=== PATIENT | female | born 1940 | race Caucasian/White ===

== ENCOUNTER → 2017-09-26 | Outpatient (REF) | payer MEDICARE, MEDICAID, OTHER, SELFPAY | LOC: LAB 14:26 | PROVIDERS: PCP Internal Medicine; Visit Provider Internal Medicine | DX: E11.9 Type 2 diabetes mellitus without complications (principal) ==

== ENCOUNTER → 2017-10-24 19:39 | Outpatient (REF) | payer MEDICARE, MEDICAID, SELFPAY ==
[2017-10-24 20:09] LABS: BUN Creatinine Ratio 18.9 (6-22); Blood Urea Nitrogen 17 mg/dL (7-17); Calcium 9.8 mg/dL (8.4-10.2); Carbon Dioxide 31 mmol/L (22-32); Chloride 97 mmol/L (98-107); Estimated Glomerular Filt Rate > 60.0 mL/min (>60); Glucose 198 mg/dL (80-110); HEMOLYSIS < 15 (0-50); Potassium 4.3 mmol/L (3.4-5.1); Sodium 139 mmol/L (137-145)
[2017-10-24 20:12] LABS: Hemoglobin A1C% w Est Avg Glu 9.1 % (4.0-6.0)
[2017-10-24 20:40] LABS: Thyroid Stimulating Hormone 4.74 uIU/mL (0.47-4.68)
== END ==
LOC: LAB 19:39
PROVIDERS: PCP Internal Medicine; Visit Provider Internal Medicine
DX: R60.9 Edema, unspecified (principal); E11.9 Type 2 diabetes mellitus without complications
CPT/HCPCS: 80048; 83036; 84443

== ENCOUNTER → 2017-10-25 15:44 | Outpatient (REF) | payer MEDICARE, OTHER, MEDICAID, SELFPAY ==
[2017-10-25 16:32] LABS: Creatinine Urine Random 47.5 mg/dL
[2017-10-25 16:37] LABS: Microalbumin Urine Random 4.8 mg/dL (0-1.6)
== END ==
LOC: LAB 15:44
PROVIDERS: PCP Internal Medicine; Visit Provider Internal Medicine
DX: G60.9 Hereditary and idiopathic neuropathy, unspecified (principal)
CPT/HCPCS: 82043; 82570

== ENCOUNTER 2017-12-04 09:46 | Inpatient (IN) | payer MEDICARE, OTHER, MEDICAID, SELFPAY ==
[2017-12-04] VITALS (8 sets, daily range): BP systolic 110–150; BP diastolic 40–98; PULSE 66–95; RESP 15–20; TEMP 36.3–37; O2SAT 90–100; BMI 57.1
--- NOTE | 2017-12-04 10:39 | ED.SKABFB ---
HPI - Skin/Abscess/Foreign Bdy General Chief complaint: Skin/Abscess/Foreign Body Stated complaint: wound care Time Seen by Provider: 12/04/17 10:25 Source: patient Mode of arrival: wheelchair Limitations: no limitations History of Present Illness HPI narrative: Patient is a 77-year-old, presenting from wound care. She is trying get reestablished with wound care for a sacral wound which she says has been ongoing for about 3-4 weeks. She is morbidly obese and wheelchair bound. He does not really have any pain no fevers. She had an appointment today with wound care she was not evaluated by a provider but by nurses under to the ED for further evaluation. MD complaint: rash Related Data Home Medications Medication Instructions Recorded Confirmed acetaminophen 650 mg PO Q4HP PRN #0 07/05/16 12/04/17 atorvastatin 40 mg PO BEDTIME #0 07/05/16 12/04/17 bisacodyl 10 mg [place] PRN PRN #0 07/05/16 12/04/17 bupropion HCl [Wellbutrin SR] 100 mg PO BID #0 07/05/16 12/04/17 diltiazem HCl 240 mg PO QPM #0 07/05/16 12/04/17 docusate sodium 200 mg PO BID #0 07/05/16 12/04/17 duloxetine [Cymbalta] 60 mg PO QDAY #0 07/05/16 12/04/17 furosemide [Lasix] 20 mg PO QDAY #0 07/05/16 12/04/17 gabapentin 800 mg PO TID #0 07/05/16 12/04/17 hydroxyzine pamoate [Vistaril] 25 mg PO Q6HP PRN #0 07/05/16 12/04/17 insulin glargine [Lantus Solostar 100 unit SQ BID #0 07/05/16 12/04/17 U-100 Insulin] lisinopril 10 mg PO BID #0 07/05/16 12/04/17 nitroglycerin [Nitrostat] 0.4 mg SUBLINGUAL PRN PRN #0 07/05/16 12/04/17 nortriptyline 50 mg PO BEDTIME #0 07/05/16 12/04/17 rivaroxaban [Xarelto] 20 mg PO QDAY #0 07/05/16 12/04/17 aspirin 81 mg PO QDAY #0 04/08/17 12/04/17 diphenhydramine HCl [Benadryl 25 mg PO Q8HP PRN #0 04/08/17 12/04/17 Allergy] insulin aspart U-100 [Novolog 1 dose SQ TID #0 04/08/17 12/04/17 Flexpen U-100 Insulin] mirabegron [Myrbetriq] 25 mg PO QPM #0 04/08/17 12/04/17 nystatin [Nyamyc] 1 applic TOPICAL PRN PRN #0 04/08/17 12/04/17 ondansetron HCl 4 mg PO Q4HP PRN #0 04/08/17 12/04/17 Chamosyn 1 applic TOPICAL TID 12/04/17 12/04/17 aripiprazole [Abilify] 2.5 mg PO BEDTIME 12/04/17 12/04/17 bisacodyl 5 mg PO PRN PRN 12/04/17 12/04/17 bisacodyl 10 mg PO PRN PRN 12/04/17 12/04/17 docosanol [Abreva] 1 applic TOPICAL PRN PRN 12/04/17 12/04/17 furosemide 40 mg PO DAILY PRN 12/04/17 12/04/17 hydrocortisone 1 applic TOPICAL Q4H PRN 12/04/17 12/04/17 levothyroxine 1 tab PO DAILY 12/04/17 12/04/17 multivitamin with minerals 1 tab PO DAILY 12/04/17 12/04/17 nystatin 1 applic TOPICAL PRN PRN 12/04/17 12/04/17 oxycodone 10 mg PO Q4H PRN 12/04/17 12/04/17 oxycodone 20 mg PO BID 12/04/17 12/04/17 potassium chloride 10 meq PO DAILY 12/04/17 12/04/17 potassium chloride 10 meq PO DAILY PRN 12/04/17 12/04/17 Previous Rx's Medication Instructions Recorded pantoprazole 20 mg PO QDAY #90 04/10/17 Allergies Allergy/AdvReac Type Severity Reaction Status Date / Time adhesive [ADHESIVE] Allergy Mild ALLERGY TO Unverified 06/20/18 14:08 TAPE Review of Systems Review of Systems All systems reviewed & are unremarkable except as noted in HPI and below Constitutional Denies chills, Denies fever(s), Denies lethargy and Denies weakness Eyes Denies change in vision, Denies eye discharge, Denies irritation and Denies loss of vision Cardiovascular Denies chest pain, Denies irregular heart rhythm, Denies lightheadedness, Denies palpitations, Denies dyspnea, Denies dyspnea on exertion and Denies orthopnea Respiratory Denies cough, Denies dyspnea, Denies dyspnea on exertion and Denies wheezing Gastrointestinal Gastrointestinal: Denies abdominal pain, Denies change in bowel habits, Denies diarrhea, Denies nausea and Denies vomiting Integumentary/Breasts Reports system reviewed and no additional complaints, except as docu and Reports as per HPI Neurologic Denies loss of vision and Denies weakness Endocrine Denies palpitations Allergic/Immunologic Denies wheezing [facility] Medical History Anemia (Acute) 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) Atrial fibrillation (Acute) Chronic pain syndrome (Acute) Hereditary and idiopathic neuropathy, unspecified (Acute) Hypertensive chronic kidney disease with stage 1 through stage 4 chronic kidney disease, or unspecified chronic kidney disease (Acute) Insomnia (Acute) Major depressive disorder (Acute) Obstructive sleep apnea (Acute) Urinary incontinence (Acute) Venous insufficiency (chronic) (peripheral) (Acute) Wheelchair bound (Acute) Diabetes (Chronic) Gastroesophageal reflux disease (Chronic) Hypertension (Chronic) Hypothyroidism (Chronic) Obesity (Chronic) Surgical History History of bilateral knee replacement (Resolved) Social History Smoking Status: Never smoker alcohol intake: never Exam Initial Vital Signs Initial Vital Signs: Vital Signs Temperature 98.6 F 12/04/17 09:59 Pulse Rate 95 H 12/04/17 09:59 Respiratory Rate 16 12/04/17 09:59 Blood Pressure 141/74 H 12/04/17 09:59 Pulse Oximetry 95 12/04/17 09:59 Const General: cooperative and healthy appearing Nutritional Appearance: obese morbidly obese Orientation: alert, awake and oriented x3 HENMT Head: normal to inspection Eyes Pupils: PERRL EOM: EOM intact bilaterally Resp Effort & Inspection: normal respiratory effort Auscultation: clear to auscultation bilaterally Cardio Rate: regular rate Rhythm: regular rhythm Heart Sounds: S1 normal and S2 normal Skin Other: Right heel 3 cm x 2 cm nonsuturable ulcer Sacral, between the buttock area 5 cm x 4 cm, foul smelling Neuro General: alert, awake and oriented x3 Course Orders Ordered: ED Orders 12/04/17 11:13 Basic Metabolic Panel Stat Complete Blood Count AUTO DIFF Stat Procalcitonin Stat 12/04/17 13:46 Consult to Physician Stat 12/04/17 13:47 Consult to Physician Stat 12/04/17 14:30 Urinalysis and Microscopic Stat Urine Culture Stat 12/04/17 16:38 Consult to Physician Routine Acetaminophen (Tylenol) 650 mg PO Q4H PRN PRN Reason: Pain (Scale Score 1-3) Aripiprazole (Abilify) 2.5 mg PO BEDTIME [facility] Atorvastatin Calcium (Lipitor) 40 mg PO BEDTIME [facility] Bisacodyl (Dulcolax) 10 mg [place] PRN PRN PRN Reason: CONSTIPATION Bupropion HCl (Wellbutrin Sr) 100 mg PO BID [facility] Diltiazem HCl (Cardizem Cd) 240 mg PO QPM [facility] Last Admin: 12/04/17 18:05 Dose: 240 mg Duloxetine HCl (Cymbalta) 60 mg PO DAILY [facility] Furosemide (Lasix) 20 mg PO DAILY [facility] Gabapentin (Neurontin) 800 mg PO TID [facility] Hydroxyzine Pamoate (Vistaril) 25 mg PO Q6H PRN PRN Reason: Spasms Insulin Glargine (Lantus (Vial)) 100 unit SUBCUT BID [facility] Levothyroxine Sodium (Synthroid) 88 mcg PO 0600 [facility] Lisinopril (Zestril) 10 mg PO BID [facility] Multivitamins/Calcium (Thera M Plus) 1 tab PO DAILY [facility] Nitroglycerin (Nitrostat) 0.4 mg SL PRN PRN PRN Reason: Chest Pain Non-Formulary Medication (Mirabegron [Myrbetriq]) 25 mg PO 1700 [facility] Last Admin: 12/04/17 18:06 Dose: Oxycodone HCl (Oxycontin) 20 mg PO BID [facility] Oxycodone HCl (Percolone) 10 mg PO Q4H PRN PRN Reason: neuropathy Pantoprazole Sodium (Protonix) 20 mg PO DAILY [facility] Potassium Chloride (Klor-Con M10) 10 meq PO DAILY [facility] Consultations Consultation #1: Dr. yost in the ED to see and evaluate patient. Recommends surgical consult thinks that it is quite deep and will likely need surgical debridement. Time: 13:00 Consultation #2: Dr. Pathak in the ED to see and evaluate patient. Agrees that will likely need debridement Time: 13:40 Consultation #3: Dr. Roland accepts patient for admission Time: 13:50 Vital Signs - 8 hr 12/04/17 12:16 12/04/17 13:00 12/04/17 14:42 Temperature Pulse Rate 71 72 67 Respiratory Rate 18 15 Blood Pressure Blood Pressure [Left Arm] 131/58 H 134/98 H 150/51 H Pulse Oximetry 96 100 97 12/04/17 17:54 Temperature 97.3 F L Pulse Rate 66 Respiratory Rate 19 Blood Pressure 150/74 H Blood Pressure [Left Arm] Pulse Oximetry 97 MDM - Skin/Abscess/Foreign Bdy Lab Data Attestation: I reviewed the patient's lab results. Result diagrams: 12/04/17 11:13 12/04/17 11:13 Lab Results 12/04/17 12/04/17 12/04/17 Range/Units 11:13 11:13 11:13 WBC 9.3 (4.5-11.0) X10^3/uL RBC 4.36 (4.0-5.2) X10^6/uL Hgb 13.2 (12.0-16.0) g/dL Hct 39.9 (36-46) % MCV 91.6 (80-100) fL MCH 30.2 (26-34) PG MCHC 33.0 (30-36) % RDW 15.0 H (11.6-14.8) % Plt Count 245 (150-400) X10^3/uL Neut % (Auto) Not Reportable Lymph % (Auto) Not Reportable [place] % (Auto) Not Reportable Eos % (Auto) Not Reportable Baso % (Auto) Not Reportable Total Counted 100 Seg Neutrophils % 50.0 (38-70) % Band Neutrophils % 2.0 L (3-7) % Lymphocytes % (Manual) 17.0 L (25-45) % Monocytes % (Manual) 30.0 H (2-11) % Myelocytes % 1.0 H (-0) % Neutrophils # (Manual) 4836 (1189-3717) /uL RBC Morphology Not Reportable Sodium 139 (137-145) mmol/L Potassium 4.5 (3.4-5.1) mmol/L Chloride 94 L (98-107) mmol/L Carbon Dioxide 36 H (22-32) mmol/L BUN 17 (7-17) mg/dL Creatinine 1.00 (0.52-1.04) mg/dL Estimated GFR 53.9 L (>60) mL/min BUN/Creatinine Ratio 17.0 (6-22) Glucose 218 H (80-110) mg/dL Calcium 9.4 (8.4-10.2) mg/dL Procalcitonin 0.07 (<0.5) ng/mL Urine Color Urine Appearance Urine pH (4.5-8.0) Ur Specific [place] (1.000-1.035) Urine Protein (Negative) Urine Glucose (UA) (Normal) g/dL Urine Ketones (NEGATIVE) Urine Occult Blood (Negative) Urine Nitrate (Negative) Urine Bilirubin (NEGATIVE) Urine Urobilinogen (0.2) E.U./dL Ur Leukocyte Esterase (NEGATIVE) Urine RBC (0-5/HPF) Urine WBC (0-5/HPF) Ur Squamous Epith Cells Urine Bacteria (None) Ur Culture Indicated? Micro UA Comment 12/04/17 Range/Units 14:30 WBC (4.5-11.0) X10^3/uL RBC (4.0-5.2) X10^6/uL Hgb (12.0-16.0) g/dL Hct (36-46) % MCV (80-100) fL MCH (26-34) PG MCHC (30-36) % RDW (11.6-14.8) % Plt Count (150-400) X10^3/uL Neut % (Auto) Lymph % (Auto) [place] % (Auto) Eos % (Auto) Baso % (Auto) Total Counted Seg Neutrophils % (38-70) % Band Neutrophils % (3-7) % Lymphocytes % (Manual) (25-45) % Monocytes % (Manual) (2-11) % Myelocytes % (-0) % Neutrophils # (Manual) (6641-8194) /uL RBC Morphology Sodium (137-145) mmol/L Potassium (3.4-5.1) mmol/L Chloride (98-107) mmol/L Carbon Dioxide (22-32) mmol/L BUN (7-17) mg/dL Creatinine (0.52-1.04) mg/dL Estimated GFR (>60) mL/min BUN/Creatinine Ratio (6-22) Glucose (80-110) mg/dL Calcium (8.4-10.2) mg/dL Procalcitonin (<0.5) ng/mL Urine Color Yellow Urine Appearance Sl cloudy Urine pH 6.0 (4.5-8.0) Ur Specific [place] 1.015 (1.000-1.035) Urine Protein Negative (Negative) Urine Glucose (UA) Negative (Normal) g/dL Urine Ketones Negative (NEGATIVE) Urine Occult Blood Trace-lysed (Negative) Urine Nitrate Positive H (Negative) Urine Bilirubin Negative (NEGATIVE) Urine Urobilinogen 0.2 (0.2) E.U./dL Ur Leukocyte Esterase Trace H (NEGATIVE) Urine RBC 0-1/hpf (0-5/HPF) Urine WBC 5-10/hpf H (0-5/HPF) Ur Squamous Epith Cells 0-1 /hpf Urine Bacteria Many (>30) H (None) Ur Culture Indicated? Specimen cultured Micro UA Comment Not Reportable MDM Narrative Medical decision making narrative: Patient does not have any signs or symptoms of sepsis she does have an obvious the wound. Admitted to Medicine for surgical debridement tomorrow Discharge Plan Departure Patient Disposition: Admitted As Inpatient Clinical Impression: Wound abscess Discharge Date/Time: 12/04/17 16:40 Interventions: ED Discharge Assessment Last Done: 12/04/17 15:17 Admit Date/Time: 12/04/17 15:49 Admit Provider: Johanna Roland
--- NOTE | 2017-12-04 10:42 | ED_ITS ---
HPI - Skin/Abscess/Foreign Bdy General Chief complaint: Skin/Abscess/Foreign Body Stated complaint: wound care Time Seen by Provider: 12/04/17 10:25 Source: patient Mode of arrival: wheelchair Limitations: no limitations History of Present Illness HPI narrative: Patient is a 77-year-old, presenting from wound care. She is trying get reestablished with wound care for a sacral wound which she says has been ongoing for about 3-4 weeks. She is morbidly obese and wheelchair bound. He does not really have any pain no fevers. She had an appointment today with wound care she was not evaluated by a provider but by nurses under to the ED for further evaluation. MD complaint: rash Related Data Home Medications Medication Instructions Recorded Confirmed acetaminophen 650 mg PO Q4HP PRN #0 07/05/16 12/04/17 atorvastatin 40 mg PO BEDTIME #0 07/05/16 12/04/17 bisacodyl 10 mg [place] PRN PRN #0 07/05/16 12/04/17 bupropion HCl [Wellbutrin SR] 100 mg PO BID #0 07/05/16 12/04/17 diltiazem HCl 240 mg PO QPM #0 07/05/16 12/04/17 docusate sodium 200 mg PO BID #0 07/05/16 12/04/17 duloxetine [Cymbalta] 60 mg PO QDAY #0 07/05/16 12/04/17 furosemide [Lasix] 20 mg PO QDAY #0 07/05/16 12/04/17 gabapentin 800 mg PO TID #0 07/05/16 12/04/17 hydroxyzine pamoate [Vistaril] 25 mg PO Q6HP PRN #0 07/05/16 12/04/17 insulin glargine [Lantus Solostar 100 unit SQ BID #0 07/05/16 12/04/17 U-100 Insulin] lisinopril 10 mg PO BID #0 07/05/16 12/04/17 nitroglycerin [Nitrostat] 0.4 mg SUBLINGUAL PRN PRN #0 07/05/16 12/04/17 nortriptyline 50 mg PO BEDTIME #0 07/05/16 12/04/17 rivaroxaban [Xarelto] 20 mg PO QDAY #0 07/05/16 12/04/17 aspirin 81 mg PO QDAY #0 04/08/17 12/04/17 diphenhydramine HCl [Benadryl 25 mg PO Q8HP PRN #0 04/08/17 12/04/17 Allergy] insulin aspart U-100 [Novolog 1 dose SQ TID #0 04/08/17 12/04/17 Flexpen U-100 Insulin] mirabegron [Myrbetriq] 25 mg PO QPM #0 04/08/17 12/04/17 nystatin [Nyamyc] 1 applic TOPICAL PRN PRN #0 04/08/17 12/04/17 ondansetron HCl 4 mg PO Q4HP PRN #0 04/08/17 12/04/17 Chamosyn 1 applic TOPICAL TID 12/04/17 12/04/17 aripiprazole [Abilify] 2.5 mg PO BEDTIME 12/04/17 12/04/17 bisacodyl 5 mg PO PRN PRN 12/04/17 12/04/17 bisacodyl 10 mg PO PRN PRN 12/04/17 12/04/17 docosanol [Abreva] 1 applic TOPICAL PRN PRN 12/04/17 12/04/17 furosemide 40 mg PO DAILY PRN 12/04/17 12/04/17 hydrocortisone 1 applic TOPICAL Q4H PRN 12/04/17 12/04/17 levothyroxine 1 tab PO DAILY 12/04/17 12/04/17 multivitamin with minerals 1 tab PO DAILY 12/04/17 12/04/17 nystatin 1 applic TOPICAL PRN PRN 12/04/17 12/04/17 oxycodone 10 mg PO Q4H PRN 12/04/17 12/04/17 oxycodone 20 mg PO BID 12/04/17 12/04/17 potassium chloride 10 meq PO DAILY 12/04/17 12/04/17 potassium chloride 10 meq PO DAILY PRN 12/04/17 12/04/17 Previous Rx's Medication Instructions Recorded pantoprazole 20 mg PO QDAY #90 04/10/17 Allergies Allergy/AdvReac Type Severity Reaction Status Date / Time adhesive [ADHESIVE] Allergy Mild ALLERGY TO Unverified 06/20/18 14:08 TAPE Review of Systems Review of Systems All systems reviewed & are unremarkable except as noted in HPI and below Constitutional Denies chills, Denies fever(s), Denies lethargy and Denies weakness Eyes Denies change in vision, Denies eye discharge, Denies irritation and Denies loss of vision Cardiovascular Denies chest pain, Denies irregular heart rhythm, Denies lightheadedness, Denies palpitations, Denies dyspnea, Denies dyspnea on exertion and Denies orthopnea Respiratory Denies cough, Denies dyspnea, Denies dyspnea on exertion and Denies wheezing Gastrointestinal Gastrointestinal: Denies abdominal pain, Denies change in bowel habits, Denies diarrhea, Denies nausea and Denies vomiting Integumentary/Breasts Reports system reviewed and no additional complaints, except as docu and Reports as per HPI Neurologic Denies loss of vision and Denies weakness Endocrine Denies palpitations Allergic/Immunologic Denies wheezing [facility] Medical History Anemia (Acute) 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) Atrial fibrillation (Acute) Chronic pain syndrome (Acute) Hereditary and idiopathic neuropathy, unspecified (Acute) Hypertensive chronic kidney disease with stage 1 through stage 4 chronic kidney disease, or unspecified chronic kidney disease (Acute) Insomnia (Acute) Major depressive disorder (Acute) Obstructive sleep apnea (Acute) Urinary incontinence (Acute) Venous insufficiency (chronic) (peripheral) (Acute) Wheelchair bound (Acute) Diabetes (Chronic) Gastroesophageal reflux disease (Chronic) Hypertension (Chronic) Hypothyroidism (Chronic) Obesity (Chronic) Surgical History History of bilateral knee replacement (Resolved) Social History Smoking Status: Never smoker alcohol intake: never Exam Initial Vital Signs Initial Vital Signs: Vital Signs Temperature 98.6 F 12/04/17 09:59 Pulse Rate 95 H 12/04/17 09:59 Respiratory Rate 16 12/04/17 09:59 Blood Pressure 141/74 H 12/04/17 09:59 Pulse Oximetry 95 12/04/17 09:59 Const General: cooperative and healthy appearing Nutritional Appearance: obese morbidly obese Orientation: alert, awake and oriented x3 HENMT Head: normal to inspection Eyes Pupils: PERRL EOM: EOM intact bilaterally Resp Effort & Inspection: normal respiratory effort Auscultation: clear to auscultation bilaterally Cardio Rate: regular rate Rhythm: regular rhythm Heart Sounds: S1 normal and S2 normal Skin Other: Right heel 3 cm x 2 cm nonsuturable ulcer Sacral, between the buttock area 5 cm x 4 cm, foul smelling Neuro General: alert, awake and oriented x3 Course Orders Ordered: ED Orders 12/04/17 11:13 Basic Metabolic Panel Stat Complete Blood Count AUTO DIFF Stat Procalcitonin Stat 12/04/17 13:46 Consult to Physician Stat 12/04/17 13:47 Consult to Physician Stat 12/04/17 14:30 Urinalysis and Microscopic Stat Urine Culture Stat 12/04/17 16:38 Consult to Physician Routine Acetaminophen (Tylenol) 650 mg PO Q4H PRN PRN Reason: Pain (Scale Score 1-3) Aripiprazole (Abilify) 2.5 mg PO BEDTIME [facility] Atorvastatin Calcium (Lipitor) 40 mg PO BEDTIME [facility] Bisacodyl (Dulcolax) 10 mg [place] PRN PRN PRN Reason: CONSTIPATION Bupropion HCl (Wellbutrin Sr) 100 mg PO BID [facility] Diltiazem HCl (Cardizem Cd) 240 mg PO QPM [facility] Last Admin: 12/04/17 18:05 Dose: 240 mg Duloxetine HCl (Cymbalta) 60 mg PO DAILY [facility] Furosemide (Lasix) 20 mg PO DAILY [facility] Gabapentin (Neurontin) 800 mg PO TID [facility] Hydroxyzine Pamoate (Vistaril) 25 mg PO Q6H PRN PRN Reason: Spasms Insulin Glargine (Lantus (Vial)) 100 unit SUBCUT BID [facility] Levothyroxine Sodium (Synthroid) 88 mcg PO 0600 [facility] Lisinopril (Zestril) 10 mg PO BID [facility] Multivitamins/Calcium (Thera M Plus) 1 tab PO DAILY [facility] Nitroglycerin (Nitrostat) 0.4 mg SL PRN PRN PRN Reason: Chest Pain Non-Formulary Medication (Mirabegron [Myrbetriq]) 25 mg PO 1700 [facility] Last Admin: 12/04/17 18:06 Dose: Oxycodone HCl (Oxycontin) 20 mg PO BID [facility] Oxycodone HCl (Percolone) 10 mg PO Q4H PRN PRN Reason: neuropathy Pantoprazole Sodium (Protonix) 20 mg PO DAILY [facility] Potassium Chloride (Klor-Con M10) 10 meq PO DAILY [facility] Consultations Consultation #1: Dr. yost in the ED to see and evaluate patient. Recommends surgical consult thinks that it is quite deep and will likely need surgical debridement. Time: 13:00 Consultation #2: Dr. Pathak in the ED to see and evaluate patient. Agrees that will likely need debridement Time: 13:40 Consultation #3: Dr. Roland accepts patient for admission Time: 13:50 Vital Signs - 8 hr 12/04/17 12:16 12/04/17 13:00 12/04/17 14:42 Temperature Pulse Rate 71 72 67 Respiratory Rate 18 15 Blood Pressure Blood Pressure [Left Arm] 131/58 H 134/98 H 150/51 H Pulse Oximetry 96 100 97 12/04/17 17:54 Temperature 97.3 F L Pulse Rate 66 Respiratory Rate 19 Blood Pressure 150/74 H Blood Pressure [Left Arm] Pulse Oximetry 97 MDM - Skin/Abscess/Foreign Bdy Lab Data Attestation: I reviewed the patient's lab results. Result diagrams: 12/04/17 11:13 12/04/17 11:13 Lab Results 12/04/17 12/04/17 12/04/17 Range/Units 11:13 11:13 11:13 WBC 9.3 (4.5-11.0) X10^3/uL RBC 4.36 (4.0-5.2) X10^6/uL Hgb 13.2 (12.0-16.0) g/dL Hct 39.9 (36-46) % MCV 91.6 (80-100) fL MCH 30.2 (26-34) PG MCHC 33.0 (30-36) % RDW 15.0 H (11.6-14.8) % Plt Count 245 (150-400) X10^3/uL Neut % (Auto) Not Reportable Lymph % (Auto) Not Reportable [place] % (Auto) Not Reportable Eos % (Auto) Not Reportable Baso % (Auto) Not Reportable Total Counted 100 Seg Neutrophils % 50.0 (38-70) % Band Neutrophils % 2.0 L (3-7) % Lymphocytes % (Manual) 17.0 L (25-45) % Monocytes % (Manual) 30.0 H (2-11) % Myelocytes % 1.0 H (-0) % Neutrophils # (Manual) 4836 (1547-5108) /uL RBC Morphology Not Reportable Sodium 139 (137-145) mmol/L Potassium 4.5 (3.4-5.1) mmol/L Chloride 94 L (98-107) mmol/L Carbon Dioxide 36 H (22-32) mmol/L BUN 17 (7-17) mg/dL Creatinine 1.00 (0.52-1.04) mg/dL Estimated GFR 53.9 L (>60) mL/min BUN/Creatinine Ratio 17.0 (6-22) Glucose 218 H (80-110) mg/dL Calcium 9.4 (8.4-10.2) mg/dL Procalcitonin 0.07 (<0.5) ng/mL Urine Color Urine Appearance Urine pH (4.5-8.0) Ur Specific [place] (1.000-1.035) Urine Protein (Negative) Urine Glucose (UA) (Normal) g/dL Urine Ketones (NEGATIVE) Urine Occult Blood (Negative) Urine Nitrate (Negative) Urine Bilirubin (NEGATIVE) Urine Urobilinogen (0.2) E.U./dL Ur Leukocyte Esterase (NEGATIVE) Urine RBC (0-5/HPF) Urine WBC (0-5/HPF) Ur Squamous Epith Cells Urine Bacteria (None) Ur Culture Indicated? Micro UA Comment 12/04/17 Range/Units 14:30 WBC (4.5-11.0) X10^3/uL RBC (4.0-5.2) X10^6/uL Hgb (12.0-16.0) g/dL Hct (36-46) % MCV (80-100) fL MCH (26-34) PG MCHC (30-36) % RDW (11.6-14.8) % Plt Count (150-400) X10^3/uL Neut % (Auto) Lymph % (Auto) [place] % (Auto) Eos % (Auto) Baso % (Auto) Total Counted Seg Neutrophils % (38-70) % Band Neutrophils % (3-7) % Lymphocytes % (Manual) (25-45) % Monocytes % (Manual) (2-11) % Myelocytes % (-0) % Neutrophils # (Manual) ([id number]) /uL RBC Morphology Sodium (137-145) mmol/L Potassium (3.4-5.1) mmol/L Chloride (98-107) mmol/L Carbon Dioxide (22-32) mmol/L BUN (7-17) mg/dL Creatinine (0.52-1.04) mg/dL Estimated GFR (>60) mL/min BUN/Creatinine Ratio (6-22) Glucose (80-110) mg/dL Calcium (8.4-10.2) mg/dL Procalcitonin (<0.5) ng/mL Urine Color Yellow Urine Appearance Sl cloudy Urine pH 6.0 (4.5-8.0) Ur Specific [place] 1.015 (1.000-1.035) Urine Protein Negative (Negative) Urine Glucose (UA) Negative (Normal) g/dL Urine Ketones Negative (NEGATIVE) Urine Occult Blood Trace-lysed (Negative) Urine Nitrate Positive H (Negative) Urine Bilirubin Negative (NEGATIVE) Urine Urobilinogen 0.2 (0.2) E.U./dL Ur Leukocyte Esterase Trace H (NEGATIVE) Urine RBC 0-1/hpf (0-5/HPF) Urine WBC 5-10/hpf H (0-5/HPF) Ur Squamous Epith Cells 0-1 /hpf Urine Bacteria Many (>30) H (None) Ur Culture Indicated? Specimen cultured Micro UA Comment Not Reportable MDM Narrative Medical decision making narrative: Patient does not have any signs or symptoms of sepsis she does have an obvious the wound. Admitted to Medicine for surgical debridement tomorrow Discharge Plan Departure Patient Disposition: Admitted As Inpatient Clinical Impression: Wound abscess Discharge Date/Time: 12/04/17 16:40 Interventions: ED Discharge Assessment Last Done: 12/04/17 15:17 Admit Date/Time: 12/04/17 15:49 Admit Provider: Johanna Roland
[2017-12-04 11:25] LABS: Hematocrit 39.9 % (36-46); Hemoglobin 13.2 g/dL (12.0-16.0); Mean Corpuscular Hemoglobin 30.2 PG (26-34); Mean Corpuscular Volume 91.6 fL (80-100); Platelet Count 245 X10^3/uL (150-400); Red Blood Cell Count 4.36 X10^6/uL (4.0-5.2); White Blood Cell Count 9.3 X10^3/uL (4.5-11.0)
[2017-12-04 11:26] LABS: Add Manual Diff / Slide Review YES
[2017-12-04 11:46] LABS: Blood Urea Nitrogen 17 mg/dL (7-17); Calcium 9.4 mg/dL (8.4-10.2); Carbon Dioxide 36 mmol/L (22-32); Chloride 94 mmol/L (98-107); Estimated Glomerular Filt Rate 53.9 mL/min (>60); Glucose 218 mg/dL (80-110); HEMOLYSIS < 15 (0-50); Potassium 4.5 mmol/L (3.4-5.1); Sodium 139 mmol/L (137-145)
[2017-12-04 11:56] LABS: Neutrophils Absolute Manual 4836 /uL (3000-5900); Total Cells Counted 100
[2017-12-04 11:59] LABS: Procalcitonin 0.07 ng/mL (<0.5)
--- NOTE | 2017-12-04 13:13 | PM.CN ---
History of Present Illness Date Patient Seen: 12/04/17 Time Patient Seen: 13:13 Chief complaint: wound care Reason for consult: sacral pressure ulcer Requesting provider: Addie Logan Narrative: I've been asked to review the patient for a sacral pressure ulcer in the ER noting she was to be seen in the wound care clinic as an initial visit today however was redirected to the ER based on her nurses observation at [facility] this morning. The patient states the ulcer has been present for at least a week, is somewhat painful depending on her position, and she does not report fevers or other associated symptoms today. She does not have history of previous ulcers at this site but is wheelchair dependent, morbidly obese, and also reports a 'blister' over her right heel today. [facility] Medical History Diabetes (Acute) Hypertension (Acute) Obesity (Acute) Social History Smoking Status: Former smoker Meds Home Medications Medication Instructions Recorded Confirmed Type Lactobacillus acidophilus 1 tab PO QDAY #0 07/05/16 History acetaminophen 650 mg PO Q4HP PRN #0 07/05/16 History atorvastatin 40 mg PO HS #0 07/05/16 History bisacodyl 10 mg [place] PRN PRN #0 07/05/1618 History bupropion HCl [Wellbutrin SR] 100 mg PO BID #0 07/05/16 History diltiazem HCl 240 mg PO QPM #0 07/05/16 History docusate sodium 100 mg PO BID #0 07/05/16 History duloxetine [Cymbalta] 60 mg PO QDAY #0 07/05/16 History furosemide [Lasix] 20 mg PO QDAY #0 07/05/16 History gabapentin 800 mg PO TID #0 07/05/16 History hydroxyzine pamoate [Vistaril] 25 mg PO Q6HP PRN #0 07/05/16 History insulin asp prt-insulin aspart 0 units SQ TIDCC #0 07/05/16 History [Novolog Mix 70-30FlexPen U-100] insulin glargine [Lantus Solostar 64 unit SQ BID #0 07/05/16 History U-100 Insulin] levothyroxine 50 mcg PO QDAY #0 07/05/16 History lisinopril 10 mg PO BID #0 07/05/16 History yeiozzbo-znfx-WV-calcium-mins 1 tab PO QDAY #0 07/05/16 11/13/17 History [Thera M Plus (ferrous fumarat)] nitroglycerin [Nitrostat] 0.4 mg SUBLINGUAL #0 07/05/16 11/13/17 History nortriptyline 50 mg PO HS #0 07/05/16 History oxycodone 5 mg PO Q6HP PRN #0 07/05/16 History potassium bicarb-citric acid 10 meq PO QDAY #0 07/05/16 History [Effer-K] rivaroxaban [Xarelto] 20 mg PO QDAY #0 07/05/16 History aripiprazole [Abilify] 5 mg PO HS #30 tab 12/21/16 Rx aspirin 81 mg PO QDAY #0 04/08/17 History bisacodyl [Fleet Laxative] 5 mg PO PRN PRN #0 04/08/17 11/13/17 History diphenhydramine HCl [Benadryl 25 mg PO Q8HP PRN #0 04/08/17 History Allergy] insulin aspart U-100 [Novolog SQ ACHS #0 04/08/17 History Flexpen U-100 Insulin] mirabegron [Myrbetriq] 25 mg PO QPM #0 04/08/17 History nystatin [Nyamyc] 100,000 u TP PRN PRN #0 04/08/17 History ondansetron HCl 4 mg PO Q4HP PRN #0 04/08/17 History oxycodone 10 mg PO Q6HP PRN #60 04/10/17 Rx oxycodone [OxyContin] 20 mg PO BID #60 04/10/17 Rx pantoprazole 20 mg PO QDAY #90 04/10/17 Rx Allergies Allergy/AdvReac Type Severity Reaction Status Date / Time adhesive [ADHESIVE] Allergy Mild ALLERGY TO Unverified 11/13/17 14:08 TAPE Review of Systems Review of Systems All systems reviewed & are unremarkable except as noted in HPI and below Exam Vital Signs (past 8 hours): - 12/04/17 09:59 12/04/17 12:16 Temperature 98.6 F Pulse Rate 95 H 71 Respiratory Rate 16 Blood Pressure 141/74 H Blood Pressure [Left Arm] 131/58 H Pulse Oximetry 95 96 Oxygen Delivery Method Room Air Const General: cooperative and comfortable Skin Other: Approx 6x6cm unstageable sacral pressure ulcer over sacrum with base covered with wet, necortic appearing slough, minimal surrounding erythema, malodorous; approx 3cm diameter right heel blister with purple fluid beneath, nontender, no surrounding erythema Objective Labs Result Diagrams: 12/04/17 11:13 12/04/17 11:13 Labs: Laboratory Results - last 24 hr 12/04/17 12/04/17 12/04/17 11:13 11:13 11:13 WBC 9.3 RBC 4.36 Hgb 13.2 Hct 39.9 MCV 91.6 MCH 30.2 MCHC 33.0 RDW 15.0 H Plt Count 245 Neut % (Auto) Not Reportable Lymph % (Auto) Not Reportable [place] % (Auto) Not Reportable Eos % (Auto) Not Reportable Baso % (Auto) Not Reportable Total Counted 100 Seg Neutrophils % 50.0 Band Neutrophils % 2.0 L Lymphocytes % (Manual) 17.0 L Monocytes % (Manual) 30.0 H Myelocytes % 1.0 H Neutrophils # (Manual) 4836 RBC Morphology Not Reportable Sodium 139 Potassium 4.5 Chloride 94 L Carbon Dioxide 36 H BUN 17 Creatinine 1.00 Estimated GFR 53.9 L BUN/Creatinine Ratio 17.0 Glucose 218 H Calcium 9.4 Procalcitonin 0.07 Assessment & Plan (1) Pressure ulcer of contiguous region involving back and buttock, unstageable: Current visit: Yes Status: Acute Plan: Assessment/Plan Narrative: I've recommended for general surgery to review the sacral pressure ulcer as it will likely require deep debridement in the OR. I'd also recommend intraoperative cultures and IV antibiotics if there's any concern for osteomyelitis for which she's at high risk. The heels should also be floated while she's in bed and the left heel blister may need to be de-roofed and examined further.
--- NOTE | 2017-12-04 13:17 | P.CONS_ITS ---
History of Present Illness Date Patient Seen: 12/04/17 Time Patient Seen: 13:13 Chief complaint: wound care Reason for consult: sacral pressure ulcer Requesting provider: Addie Logan Narrative: I've been asked to review the patient for a sacral pressure ulcer in the ER noting she was to be seen in the wound care clinic as an initial visit today however was redirected to the ER based on her nurses observation at [facility] this morning. The patient states the ulcer has been present for at least a week, is somewhat painful depending on her position, and she does not report fevers or other associated symptoms today. She does not have history of previous ulcers at this site but is wheelchair dependent, morbidly obese, and also reports a 'blister' over her right heel today. [facility] Medical History Diabetes (Acute) Hypertension (Acute) Obesity (Acute) Social History Smoking Status: Former smoker Meds Home Medications Medication Instructions Recorded Confirmed Type Lactobacillus acidophilus 1 tab PO QDAY #0 07/05/16 History acetaminophen 650 mg PO Q4HP PRN #0 07/05/16 History atorvastatin 40 mg PO HS #0 07/05/16 History bisacodyl 10 mg [place] PRN PRN #0 07/05/1618 History bupropion HCl [Wellbutrin SR] 100 mg PO BID #0 07/05/16 History diltiazem HCl 240 mg PO QPM #0 07/05/16 History docusate sodium 100 mg PO BID #0 07/05/16 History duloxetine [Cymbalta] 60 mg PO QDAY #0 07/05/16 History furosemide [Lasix] 20 mg PO QDAY #0 07/05/16 History gabapentin 800 mg PO TID #0 07/05/16 History hydroxyzine pamoate [Vistaril] 25 mg PO Q6HP PRN #0 07/05/16 History insulin asp prt-insulin aspart 0 units SQ TIDCC #0 07/05/16 History [Novolog Mix 70-30FlexPen U-100] insulin glargine [Lantus Solostar 64 unit SQ BID #0 07/05/16 History U-100 Insulin] levothyroxine 50 mcg PO QDAY #0 07/05/16 History lisinopril 10 mg PO BID #0 07/05/16 History pejghsih-wlbo-NP-calcium-mins 1 tab PO QDAY #0 07/05/16 11/13/17 History [Thera M Plus (ferrous fumarat)] nitroglycerin [Nitrostat] 0.4 mg SUBLINGUAL #0 07/05/16 11/13/17 History nortriptyline 50 mg PO HS #0 07/05/16 History oxycodone 5 mg PO Q6HP PRN #0 07/05/16 History potassium bicarb-citric acid 10 meq PO QDAY #0 07/05/16 History [Effer-K] rivaroxaban [Xarelto] 20 mg PO QDAY #0 07/05/16 History aripiprazole [Abilify] 5 mg PO HS #30 tab 12/21/16 Rx aspirin 81 mg PO QDAY #0 04/08/17 History bisacodyl [Fleet Laxative] 5 mg PO PRN PRN #0 04/08/17 11/13/17 History diphenhydramine HCl [Benadryl 25 mg PO Q8HP PRN #0 04/08/17 History Allergy] insulin aspart U-100 [Novolog SQ ACHS #0 04/08/17 History Flexpen U-100 Insulin] mirabegron [Myrbetriq] 25 mg PO QPM #0 04/08/17 History nystatin [Nyamyc] 100,000 u TP PRN PRN #0 04/08/17 History ondansetron HCl 4 mg PO Q4HP PRN #0 04/08/17 History oxycodone 10 mg PO Q6HP PRN #60 04/10/17 Rx oxycodone [OxyContin] 20 mg PO BID #60 04/10/17 Rx pantoprazole 20 mg PO QDAY #90 04/10/17 Rx Allergies Allergy/AdvReac Type Severity Reaction Status Date / Time adhesive [ADHESIVE] Allergy Mild ALLERGY TO Unverified 11/13/17 14:08 TAPE Review of Systems Review of Systems All systems reviewed & are unremarkable except as noted in HPI and below Exam Vital Signs (past 8 hours): - 12/04/17 09:59 12/04/17 12:16 Temperature 98.6 F Pulse Rate 95 H 71 Respiratory Rate 16 Blood Pressure 141/74 H Blood Pressure [Left Arm] 131/58 H Pulse Oximetry 95 96 Oxygen Delivery Method Room Air Const General: cooperative and comfortable Skin Other: Approx 6x6cm unstageable sacral pressure ulcer over sacrum with base covered with wet, necortic appearing slough, minimal surrounding erythema, malodorous; approx 3cm diameter right heel blister with purple fluid beneath, nontender, no surrounding erythema Objective Labs Result Diagrams: 12/04/17 11:13 12/04/17 11:13 Labs: Laboratory Results - last 24 hr 12/04/17 12/04/17 12/04/17 11:13 11:13 11:13 WBC 9.3 RBC 4.36 Hgb 13.2 Hct 39.9 MCV 91.6 MCH 30.2 MCHC 33.0 RDW 15.0 H Plt Count 245 Neut % (Auto) Not Reportable Lymph % (Auto) Not Reportable [place] % (Auto) Not Reportable Eos % (Auto) Not Reportable Baso % (Auto) Not Reportable Total Counted 100 Seg Neutrophils % 50.0 Band Neutrophils % 2.0 L Lymphocytes % (Manual) 17.0 L Monocytes % (Manual) 30.0 H Myelocytes % 1.0 H Neutrophils # (Manual) 4836 RBC Morphology Not Reportable Sodium 139 Potassium 4.5 Chloride 94 L Carbon Dioxide 36 H BUN 17 Creatinine 1.00 Estimated GFR 53.9 L BUN/Creatinine Ratio 17.0 Glucose 218 H Calcium 9.4 Procalcitonin 0.07 Assessment & Plan (1) Pressure ulcer of contiguous region involving back and buttock, unstageable : Current visit: Yes Status: Acute Plan: Assessment/Plan Narrative: I've recommended for general surgery to review the sacral pressure ulcer as it will likely require deep debridement in the OR. I'd also recommend intraoperative cultures and IV antibiotics if there's any concern for osteomyelitis for which she's at high risk. The heels should also be floated while she's in bed and the left heel blister may need to be de-roofed and examined further.
--- NOTE | 2017-12-04 13:56 | P.CONS_ITS ---
History of Present Illness Chief complaint: wound care [facility] Medical History Diabetes (Chronic) Gastroesophageal reflux disease (Chronic) Hypertension (Chronic) Hypothyroidism (Chronic) Obesity (Chronic) Surgical History History of bilateral knee replacement (Resolved) Social History Smoking Status: Former smoker Meds Home Medications Medication Instructions Recorded Confirmed Type Lactobacillus acidophilus 1 tab PO QDAY #0 07/05/16 History acetaminophen 650 mg PO Q4HP PRN #0 07/05/16 History atorvastatin 40 mg PO HS #0 07/05/16 History bisacodyl 10 mg [place] PRN PRN #0 07/05/16 11/13/17 History bupropion HCl [Wellbutrin SR] 100 mg PO BID #0 07/05/16 History diltiazem HCl 240 mg PO QPM #0 07/05/16 History docusate sodium 100 mg PO BID #0 07/05/16 History duloxetine [Cymbalta] 60 mg PO QDAY #0 07/05/16 History furosemide [Lasix] 20 mg PO QDAY #0 07/05/16 History gabapentin 800 mg PO TID #0 07/05/16 History hydroxyzine pamoate [Vistaril] 25 mg PO Q6HP PRN #0 07/05/16 History insulin asp prt-insulin aspart 0 units SQ TIDCC #0 07/05/16 History [Novolog Mix 70-30FlexPen U-100] insulin glargine [Lantus Solostar 64 unit SQ BID #0 07/05/16 History U-100 Insulin] levothyroxine 50 mcg PO QDAY #0 07/05/16 History lisinopril 10 mg PO BID #0 07/05/16 History iwmfkecq-dxmd-FU-calcium-mins 1 tab PO QDAY #0 07/05/16 11/13/17 History [Thera M Plus (ferrous fumarat)] nitroglycerin [Nitrostat] 0.4 mg SUBLINGUAL #0 07/05/16 11/13/17 History nortriptyline 50 mg PO HS #0 07/05/16 History oxycodone 5 mg PO Q6HP PRN #0 07/05/16 History potassium bicarb-citric acid 10 meq PO QDAY #0 07/05/16 History [Effer-K] rivaroxaban [Xarelto] 20 mg PO QDAY #0 07/05/16 History aripiprazole [Abilify] 5 mg PO HS #30 tab 12/21/16 Rx aspirin 81 mg PO QDAY #0 04/08/17 History bisacodyl [Fleet Laxative] 5 mg PO PRN PRN #0 04/08/17 11/13/17 History diphenhydramine HCl [Benadryl 25 mg PO Q8HP PRN #0 04/08/17 History Allergy] insulin aspart U-100 [Novolog SQ ACHS #0 04/08/17 History Flexpen U-100 Insulin] mirabegron [Myrbetriq] 25 mg PO QPM #0 04/08/17 History nystatin [Nyamyc] 100,000 u TP PRN PRN #0 04/08/17 History ondansetron HCl 4 mg PO Q4HP PRN #0 04/08/17 History oxycodone 10 mg PO Q6HP PRN #60 04/10/17 Rx oxycodone [OxyContin] 20 mg PO BID #60 04/10/17 Rx pantoprazole 20 mg PO QDAY #90 04/10/17 Rx Allergies Allergy/AdvReac Type Severity Reaction Status Date / Time adhesive [ADHESIVE] Allergy Mild ALLERGY TO Unverified 11/13/17 14:08 TAPE Review of Systems Review of Systems No recent chest pain. Very inactive. Goes from bed to a chair that is about it for activity. She does not know she has black or bloody bowel movements. No seizures or blackouts. Sugar levels very quite a bit she says. A low for her would be 120. Needs assistance at home. Exam Vital Signs (past 8 hours): - 12/04/17 09:59 12/04/17 12:16 Temperature 98.6 F Pulse Rate 95 H 71 Respiratory Rate 16 Blood Pressure 141/74 H Blood Pressure [Left Arm] 131/58 H Pulse Oximetry 95 96 Oxygen Delivery Method Room Air Narrative Exam Narrative: Operative incredibly obese woman in no apparent distress. Eyes are nonicteric. Neck is supple. There are no nodes in the neck or supraclavicular areas. Trachea is midline mobile. Lungs are clear to auscultation without rales or rhonchi. Equal to percussion. Heart regular rate and rhythm with occasional ectopy no murmur gallop appreciated. No bruit in the neck. Wound on the right heel appears to be intact. Wound overlying the sacrum is actually between her buttock folds. There is full-thickness necrosis it is difficult to tell how deep it is. Suspected goes down to at least the presacral tissues. Objective Labs Result Diagrams: 12/04/17 11:13 12/04/17 11:13 Labs: Laboratory Results - last 24 hr 12/04/17 12/04/17 12/04/17 11: 11: 11:13 WBC 9.3 RBC 4.36 Hgb 13.2 Hct 39.9 MCV 91.6 MCH 30.2 MCHC 33.0 RDW 15.0 H Plt Count 245 Neut % (Auto) Not Reportable Lymph % (Auto) Not Reportable [place] % (Auto) Not Reportable Eos % (Auto) Not Reportable Baso % (Auto) Not Reportable Total Counted 100 Seg Neutrophils % 50.0 Band Neutrophils % 2.0 L Lymphocytes % (Manual) 17.0 L Monocytes % (Manual) 30.0 H Myelocytes % 1.0 H Neutrophils # (Manual) 4836 RBC Morphology Not Reportable Sodium 139 Potassium 4.5 Chloride 94 L Carbon Dioxide 36 H BUN 17 Creatinine 1.00 Estimated GFR 53.9 L BUN/Creatinine Ratio 17.0 Glucose 218 H Calcium 9.4 Procalcitonin 0.07 Assessment & Plan Plan: Assessment/Plan Narrative: Due to her complex medical issues of which there seemed to be a a multitude she will be admitted to Medicine. I will debride her tomorrow. NPO after midnight.
[2017-12-04 15:31] LABS: Appearance Urine UA SL CLOUDY; Bilirubin Urine UA NEGATIVE (NEGATIVE); Color Urine UA YELLOW; Glucose Urine UA NEGATIVE (Normal); Ketones Urine UA NEGATIVE (NEGATIVE); Leukocyte Esterase Urine UA TRACE (NEGATIVE); Nitrite Urine UA POSITIVE (Negative); Occult Blood Urine UA TRACE-LYSED (Negative); Protein Urine UA NEGATIVE (Negative); Specific Gravity Urine UA 1.015 (1.000-1.035); Urobilinogen Urine UA 0.2 E.U./dL (0.2)
[2017-12-04 15:55] LABS: Bacteria Urine Many (>30); RBC Urine 0-1/HPF (0-5/HPF); Squamous Epithelial Cell Urine 0-1 /HPF; WBC Urine 5-10/HPF (0-5/HPF)
[2017-12-04 15:56] LABS: Culture Indicated Urine Specimen Cultured
--- NOTE | 2017-12-04 16:52 | P.HP_ITS ---
History of Present Illness Date Patient Seen: 12/04/17 Time Patient Seen: 16:20 Chief complaint: wound care Narrative: 77-year-old morbidly obese female who was brought to the [facility] Emergency room from the wound clinic earlier today due to concern of pressure ulcer in the sacrum and possible wound infection. She said the nurse has noticed ulceration in the sacrum about 3-4 weeks ago. Recently the ulcers seem to have gotten worse. She was brought to the wound clinic earlier today. The technical operations specialist was concerned about possible necessity of surgical I&D of the ulceration. She was subsequently sent to the emergency room. Patient denies fevers or chills. She does have discomfort locally when she is in certain sitting position. She has been laying in bed or sitting in the wheelchair. She is not able to change her body position frequently. She also was found to have an ulceration on her heel. 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 1 through stage 4 chronic kidney disease, or unspecified chronic kidney disease (Acute) Insomnia (Acute) Major depressive disorder (Acute) Obstructive sleep apnea (Acute) Urinary incontinence (Acute) Venous insufficiency (chronic) (peripheral) (Acute) Wheelchair bound (Acute) Diabetes (Chronic) Gastroesophageal reflux disease (Chronic) Hypertension (Chronic) Hypothyroidism (Chronic) Obesity (Chronic) Surgical History History of bilateral knee replacement (Resolved) Comment: Total of abdominal hysterectomy and bilateral salpingo-oophorectomy in the mid bilateral knee replacement in 2006 and 2007 rotator cuff repair Family & Social History Social History: She is . She resides den at the [facility]. Denies alcohol drinking or cigarette smoking. Safety & Behavioral: Feels Safe in Current Yes Environment Been Physically Hurt or No Threatened By a Person Tobacco & Substance use: Smoking Status Former smoker alcohol intake frequency 0-2 drinks per day Substance Use Type does not use Comment: FH: non-contributory Meds Home Medications Medication Instructions Recorded Confirmed Type acetaminophen 650 mg PO Q4HP PRN #0 07/05/16 12/04/17 History atorvastatin 40 mg PO BEDTIME #0 07/05/16 12/04/17 History bisacodyl 10 mg MT PRN PRN #0 07/05/16 12/04/17 History bupropion HCl [Wellbutrin SR] 100 mg PO BID #0 07/05/16 12/04/17 History diltiazem HCl 240 mg PO QPM #0 07/05/16 12/04/17 History docusate sodium 200 mg PO BID #0 07/05/16 12/04/17 History duloxetine [Cymbalta] 60 mg PO QDAY #0 07/05/16 12/04/17 History furosemide [Lasix] 20 mg PO QDAY #0 07/05/16 12/04/17 History gabapentin 800 mg PO TID #0 07/05/16 12/04/17 History hydroxyzine pamoate [Vistaril] 25 mg PO Q6HP PRN #0 07/05/16 12/04/17 History insulin glargine [Lantus Solostar 100 unit SQ BID #0 07/05/16 12/04/17 History U-100 Insulin] lisinopril 10 mg PO BID #0 07/05/16 12/04/17 History nitroglycerin [Nitrostat] 0.4 mg SUBLINGUAL PRN PRN #0 07/05/16 12/04/17 History nortriptyline 50 mg PO BEDTIME #0 07/05/16 12/04/17 History rivaroxaban [Xarelto] 20 mg PO QDAY #0 07/05/16 12/04/17 History aspirin 81 mg PO QDAY #0 04/08/17 12/04/17 History diphenhydramine HCl [Benadryl 25 mg PO Q8HP PRN #0 04/08/17 12/04/17 History Allergy] insulin aspart U-100 [Novolog 1 dose SQ TID #0 04/08/17 12/04/17 History Flexpen U-100 Insulin] mirabegron [Myrbetriq] 25 mg PO QPM #0 04/08/17 12/04/17 History nystatin [Nyamyc] 1 applic TOPICAL PRN PRN #0 04/08/17 12/04/17 History ondansetron HCl 4 mg PO Q4HP PRN #0 04/08/17 12/04/17 History pantoprazole 20 mg PO QDAY #90 04/10/17 12/04/17 Rx Chamosyn 1 applic TOPICAL TID 12/04/17 12/04/17 History aripiprazole [Abilify] 2.5 mg PO BEDTIME 12/04/17 12/04/17 History bisacodyl 5 mg PO PRN PRN 12/04/17 12/04/17 History bisacodyl 10 mg PO PRN PRN 12/04/17 12/04/17 History docosanol [Abreva] 1 applic TOPICAL PRN PRN 12/04/17 12/04/17 History furosemide 40 mg PO DAILY PRN 12/04/17 12/04/17 History hydrocortisone 1 applic TOPICAL Q4H PRN 12/04/17 12/04/17 History levothyroxine 1 tab PO DAILY 12/04/17 12/04/17 History multivitamin with minerals 1 tab PO DAILY 12/04/17 12/04/17 History nystatin 1 applic TOPICAL PRN PRN 12/04/17 12/04/17 History oxycodone 10 mg PO Q4H PRN 12/04/17 12/04/17 History oxycodone 20 mg PO BID 12/04/17 12/04/17 History potassium chloride 10 meq PO DAILY 12/04/17 12/04/17 History potassium chloride 10 meq PO DAILY PRN 12/04/17 12/04/17 History Allergies Allergy/AdvReac Type Severity Reaction Status Date / Time adhesive [ADHESIVE] Allergy Mild ALLERGY TO Unverified 11/13/17 14:08 TAPE Review of Systems Constitutional Comments: Denies fever chills or sweats Cardiovascular Comments: Denies chest pain or shortness of breath. Gastrointestinal Comments: Denies abdominal pain Genitourinary Comments: No dysuria Exam Vital Signs (past 8 hours): - 12/04/17 09:59 12/04/17 12:16 12/04/17 13:00 Temperature 98.6 F Pulse Rate 95 H 71 72 Respiratory Rate 16 18 Blood Pressure 141/74 H Blood Pressure [Left Arm] 131/58 H 134/98 H Pulse Oximetry 95 96 100 12/04/17 14:42 Temperature Pulse Rate 67 Respiratory Rate 15 Blood Pressure Blood Pressure [Left Arm] 150/51 H Pulse Oximetry 97 Oxygen Delivery Method Room Air Narrative Exam Narrative: GENERAL: Morbidly obese middle-aged woman in no acute distress. HEENT: Head normocephalic, atraumatic. Eyes pupils equal round NECK: Supple, no JVD, CHEST: Breath sounds equal bilaterally, no wheezes rales or rhonchi. CARDIAC: Regular rate and rhythm without murmurs, rubs or gallops. ABDOMEN: Soft, nontender. Normoactive bowel sounds all 4 quadrants. No guarding or rebound. EXTREMITIES: Chronic venous stasis changes on the skin of bilateral lower leg. No significant pitting edema NEUROLOGICAL: Alert and oriented; she does move her extremities Perineum: There is an ulceration on the skin fold in the sacrum, size about 2 cm x 1 cm. The ulceration was chronic appearing. No obvious soft tissue swelling or fluctuance. No obvious purulent drainage. There is foul smelling in the area Objective Labs Result Diagrams: 12/04/17 11:13 12/04/17 11:13 Labs: Laboratory Results - last 24 hr 12/04/17 12/04/17 12/04/17 11:13 11:13 11:13 WBC 9.3 RBC 4.36 Hgb 13.2 Hct 39.9 MCV 91.6 MCH 30.2 MCHC 33.0 RDW 15.0 H Plt Count 245 Neut % (Auto) Not Reportable Lymph % (Auto) Not Reportable [place] % (Auto) Not Reportable Eos % (Auto) Not Reportable Baso % (Auto) Not Reportable Total Counted 100 Seg Neutrophils % 50.0 Band Neutrophils % 2.0 L Lymphocytes % (Manual) 17.0 L Monocytes % (Manual) 30.0 H Myelocytes % 1.0 H Neutrophils # (Manual) 4836 RBC Morphology Not Reportable Sodium 139 Potassium 4.5 Chloride 94 L Carbon Dioxide 36 H BUN 17 Creatinine 1.00 Estimated GFR 53.9 L BUN/Creatinine Ratio 17.0 Glucose 218 H Calcium 9.4 Procalcitonin 0.07 Urine Color Urine Appearance Urine pH Ur Specific [place] Urine Protein Urine Glucose (UA) Urine Ketones Urine Occult Blood Urine Nitrate Urine Bilirubin Urine Urobilinogen Ur Leukocyte Esterase Urine RBC Urine WBC Ur Squamous Epith Cells Urine Bacteria Ur Culture Indicated? Micro UA Comment 12/04/17 14:30 WBC RBC Hgb Hct MCV MCH MCHC RDW Plt Count Neut % (Auto) Lymph % (Auto) [place] % (Auto) Eos % (Auto) Baso % (Auto) Total Counted Seg Neutrophils % Band Neutrophils % Lymphocytes % (Manual) Monocytes % (Manual) Myelocytes % Neutrophils # (Manual) RBC Morphology Sodium Potassium Chloride Carbon Dioxide BUN Creatinine Estimated GFR BUN/Creatinine Ratio Glucose Calcium Procalcitonin Urine Color Yellow Urine Appearance Sl cloudy Urine pH 6.0 Ur Specific [place] 1.015 Urine Protein Negative Urine Glucose (UA) Negative Urine Ketones Negative Urine Occult Blood Trace-lysed Urine Nitrate Positive H Urine Bilirubin Negative Urine Urobilinogen 0.2 Ur Leukocyte Esterase Trace H Urine RBC 0-1/hpf Urine WBC 5-10/hpf H Ur Squamous Epith Cells 0-1 /hpf Urine Bacteria Many (>30) H Ur Culture Indicated? Specimen cultured Micro UA Comment Not Reportable Assessment & Plan Plan: Assessment/Plan Narrative: 1. Stage II to III Pressure ulcer in the sacrum and heel: There seem to be possible necrotic tissue at the edge of the ulceration. Appreciate Dr. Pathak' s consultation. Surgical I and D is planned for tomorrow. NPO after midnight. Hold Xarelto and aspirin today for anticipated surgery. Change body position every 2 hr. Avoid local pressure if possible. Continue local wound care. 2. Type 2 diabetes: Continue Lantus and NovoLog insulin per outpatient dosing. Hold Lantus insulin prior to surgery while NPO. Use sliding scale insulin as needed. 3. Chronic pain: Continue OxyContin and oxycodone per outpatient dosing. Continue gabapentin per outpatient dosing. 4. Chronic atrial fibrillation: Continue diltiazem for rate control. Hold Xarelto prior to surgery. Restart Xarelto after surgery. 5. Hypertension: Continue lisinopril and diltiazem per outpatient dosing 6. GERD: Continue Protonix 20 mg once a day 7. Hypothyroidism: Continue Synthroid 88 mcg daily 8. Hyperlipidemia: Continue atorvastatin 40 mg once a day. 9. Morbid obesity, BMI 57.1
[2017-12-04] MEDS: dilTIAZem CD 240 MG CAP PO (18:05)
[2017-12-04] MEDS: ARIPiprazole 10 MG TABLET 2.5 MG PO (20:04)
[2017-12-04] MEDS: buPROPion SR 100 MG TAB PO (20:05)
[2017-12-04] MEDS: GABAPENTIN 400 MG CAPSULE 800 MG PO (20:05)
[2017-12-04] MEDS: ATORVASTATIN 20 MG TABLET 40 MG PO (20:05)
[2017-12-04] MEDS: OXYCODONE IR 5 MG TABLET 10 MG PO (20:07)
[2017-12-04] MEDS: LISINOPRIL 10 MG TABLET PO (20:08)
[2017-12-04] MEDS: SODIUM CHLORIDE 0.9% FLUSH 10 ML IV (20:08)
[2017-12-04] MEDS: OXYCODONE ER 10 MG TAB 20 MG PO (20:50)
[2017-12-05] VITALS (19 sets, daily range): BP systolic 107–154; BP diastolic 51–94; PULSE 71–110; RESP 12–20; TEMP 36.2–36.9; O2SAT 92–97; BMI 55.6
[2017-12-05] MEDS: OXYCODONE ER 10 MG TAB 20 MG PO ×2 (08:56→21:12)
[2017-12-05] MEDS: LACTATED RINGERS 1,000 ML 100 ML IV (08:56)
[2017-12-05] MEDS: POTASSIUM CHLORIDE 10 MEQ TAB PO (08:56)
[2017-12-05] MEDS: LEVOTHYROXINE 88 MCG TABLET PO (08:57)
[2017-12-05] MEDS: GABAPENTIN 400 MG CAPSULE 800 MG PO ×2 (08:57→21:11)
[2017-12-05] MEDS: DULOXETINE 30 MG CAPSULE 60 MG PO (08:58)
[2017-12-05] MEDS: LISINOPRIL 10 MG TABLET PO ×2 (08:58→21:12)
[2017-12-05] MEDS: buPROPion SR 100 MG TAB PO ×2 (08:58→21:11)
[2017-12-05] MEDS: FUROSEMIDE 20 MG TABLET PO (08:58)
[2017-12-05] MEDS: PANTOPRAZOLE 20 MG TABLET PO (08:58)
[2017-12-05] MEDS: MULTIVIT,CALC,MINS/IRON/FOLIC 1 TABLET 1 TAB PO (08:59)
--- NOTE | 2017-12-05 09:45 | P.PN_ITS ---
Subjective Date Patient Seen: 12/05/17 Time Patient Seen: 09:33 Interval history: Patient sitting in bed with head of the bed elevated 45? in no acute distress. She has been NPO since midnight is awaiting surgical debridement of a sacral pressure ulcer. Exam Vital Signs (past 8 hours): - 12/05/17 05:31 12/05/17 08:30 Temperature 97.6 F 97.7 F Pulse Rate 71 72 Respiratory Rate 16 Blood Pressure 118/71 123/63 H Pulse Oximetry 96 96 Oxygen Delivery Method Nasal Cannula Oxygen Flow Rate 2 Const General: cooperative, comfortable and well groomed Nutritional Appearance: obese morbidly obese Orientation: alert, awake and oriented x3 HENMT Head: normal to inspection, normocephalic and atraumatic Eyes General: appearance normal, both eyes and all related structures Pupils: PERRL Neck Neck: supple Other: No lymphedema Chest Chest: normal inspection of the chest Resp Effort & Inspection: normal respiratory effort and able to speak in complete sentences Auscultation: clear to auscultation bilaterally Cardio Heart Sounds: S1 normal and S2 normal Other: Pulse rate slightly irregular. Has history of atrial fibrillation. No rubs clicks or murmurs appreciated GI Inspection: obesity Palpation: soft Auscultation: normal bowel sounds Other: No guarding or rebound tenderness. Other: Urinary catheter drawn drain in place draining ample amounts of clear hedy urine. Skin General: no rashes or lesions noted, dry skin and warm Other: She has a stage 2/3 pressure ulceration of the skin fold in the sacrum. About 2 cm x 1 cm. The ulceration is chronic in appearance and there is no obvious tissue swelling or fluctuation. There is no purulent drainage at this point time but the area is foul smelling. Neuro General: alert, awake and oriented x3 Cognition: normal cognition Speech: speech normal Motor: muscle tone normal throughout Sensory Exam: other (Decreased sensation noted over both lower extremities.) Extrem General: capillary refill normal and no calf tenderness Other: Chronic venous stasis rash noted to both lower extremities. No significant pitting edema. She does have an approximate 3 cm fluid-filled blister on her right heel. Objective Labs Result Diagrams: 12/04/17 11:13 12/04/17 11:13 Labs: Laboratory Results - last 24 hr 12/04/17 12/04/17 12/04/17 11:13 11:13 11:13 WBC 9.3 RBC 4.36 Hgb 13.2 Hct 39.9 MCV 91.6 MCH 30.2 MCHC 33.0 RDW 15.0 H Plt Count 245 Neut % (Auto) Not Reportable Lymph % (Auto) Not Reportable [place] % (Auto) Not Reportable Eos % (Auto) Not Reportable Baso % (Auto) Not Reportable Total Counted 100 Seg Neutrophils % 50.0 Band Neutrophils % 2.0 L Lymphocytes % (Manual) 17.0 L Monocytes % (Manual) 30.0 H Myelocytes % 1.0 H Neutrophils # (Manual) 4836 RBC Morphology Not Reportable Sodium 139 Potassium 4.5 Chloride 94 L Carbon Dioxide 36 H BUN 17 Creatinine 1.00 Estimated GFR 53.9 L BUN/Creatinine Ratio 17.0 Glucose 218 H Calcium 9.4 Procalcitonin 0.07 Urine Color Urine Appearance Urine pH Ur Specific [place] Urine Protein Urine Glucose (UA) Urine Ketones Urine Occult Blood Urine Nitrate Urine Bilirubin Urine Urobilinogen Ur Leukocyte Esterase Urine RBC Urine WBC Ur Squamous Epith Cells Urine Bacteria Ur Culture Indicated? Micro UA Comment 12/04/17 14:30 WBC RBC Hgb Hct MCV MCH MCHC RDW Plt Count Neut % (Auto) Lymph % (Auto) [place] % (Auto) Eos % (Auto) Baso % (Auto) Total Counted Seg Neutrophils % Band Neutrophils % Lymphocytes % (Manual) Monocytes % (Manual) Myelocytes % Neutrophils # (Manual) RBC Morphology Sodium Potassium Chloride Carbon Dioxide BUN Creatinine Estimated GFR BUN/Creatinine Ratio Glucose Calcium Procalcitonin Urine Color Yellow Urine Appearance Sl cloudy Urine pH 6.0 Ur Specific [place] 1.015 Urine Protein Negative Urine Glucose (UA) Negative Urine Ketones Negative Urine Occult Blood Trace-lysed Urine Nitrate Positive H Urine Bilirubin Negative Urine Urobilinogen 0.2 Ur Leukocyte Esterase Trace H Urine RBC 0-1/hpf Urine WBC 5-10/hpf H Ur Squamous Epith Cells 0-1 /hpf Urine Bacteria Many (>30) H Ur Culture Indicated? Specimen cultured Micro UA Comment Not Reportable Assessment & Plan Plan: Assessment/Plan Narrative: 1. Stage II to III Pressure ulcer in the sacrum and heel: There seem to be possible necrotic tissue at the edge of the ulceration. Appreciate Dr. Pathak' s consultation. Surgical I and D is planned for this afternoon. She has remained NPO after midnight except for selective medications. Hold Xarelto and aspirin today for anticipated surgery. Change body position every 2 hr. Avoid local pressure if possible. Continue local wound care. 2. Type 2 diabetes: Continue Lantus and NovoLog insulin per outpatient dosing. Hold Lantus insulin prior to surgery while NPO. Use sliding scale insulin as needed. 3. Chronic pain: Continue OxyContin and oxycodone per outpatient dosing. Continue gabapentin per outpatient dosing. 4. Chronic atrial fibrillation: Continue diltiazem for rate control. Hold Xarelto prior to surgery. Restart Xarelto after surgery. 5. Hypertension: Continue lisinopril and diltiazem per outpatient dosing 6. GERD: Continue Protonix 20 mg once a day 7. Hypothyroidism: Continue Synthroid 88 mcg daily 8. Hyperlipidemia: Continue atorvastatin 40 mg once a day. 9. Morbid obesity, BMI 57.1 Quality VTE Deep Vein Thrombosis/Pulmonary Embolism Present on Admission: No
--- NOTE | 2017-12-05 13:42 | PM.PREOP ---
Pre-operative Note Interval Note Pre-op Check: History & Physical Reviewed by Physician and Exam Performed H&P completed within 30 days and has changed as indicated here:: No real change. Sugar has been acceptable.
--- NOTE | 2017-12-05 14:49 | CM.DANOTE ---
Discharge Planning/Care Management DCP: assessment: case received this morning and met with pt at 0900. Introduced self and role. Pt confirms she has been living as a resident at [facility] for the last year and a half. She was taken to the [facility] wound clinic for her first appt and decision by Dr. Higgins and staff was to send her to the ER. She admitted to care of hospitalist team. Dr. Higgins and Dr. Pathak are consulting. Pt goes to surgery later this evening for I%D of sacral ulcer. Payer: Medicare and [employer] Pt's bariatric motorized w/c is in her IH room and pt confirms that is her primary transport mode at the facility. Pt states she expects to return to [facility] at d/c but, if snf needed, would agree to [facility]. Have discussed same with Roma/LARRY LATHAM and left a vm for Belinda/[facility]. P: snf vs return [facility]....follow [facility] agrees to fax clinical to [facility]. CM Discharge Assessment Start: 12/05/17 14:45 Freq: Status: Active Protocol: Document 12/05/17 14:45 ITV (Rec: 12/05/17 14:49 ITV [id number]) Discharge Planning Assessment History Provided By Patient Medical Record Has Patient been admitted in last 30 No days? Prior Living Arrangements Assisted Living Type of transporation used prior to Relies on Others admit Facility Name [facility] Willing to Return to Facility? Yes Independent with ADL's No Is patient alert and oriented? Yes Caregiver for Another No DME Already Rented / Owned Other Comment uses a bariatric motorized w/c . Current wt: 385 lbs Referrals Initiated Retirement Comment referral to [facility] in case of need. Pt aware and agreeable if decision made that she needs to go there before return to [facility] setting Comment Discussed above with Roma/ [facility]. VM left for [facility]/ Belinda Review Status In Process Next Review Type Continued Stay Review
[2017-12-05] MEDS: LACTATED RINGERS 1,000 ML 42 ML IV (14:52)
--- NOTE | 2017-12-05 15:08 | CM.DPC ---
Clinicals faxed to [facility].
--- NOTE | 2017-12-05 15:47 | SUR.OPER ---
Lateral on hospital bed, head on pillow, bottom leg straight, upper leg bent and supported with pillows. Pillow between arms. Tape at right hip to bed.
--- NOTE | 2017-12-05 15:57 | PM.OP.1 ---
Operative Date/Time/Diagnoses Date of procedure: 12/05/17 Time of procedure: 15:57 Pre-op diagnosis: Pressure ulcer between the cleft of the buttock over the sacrum. Post-op diagnosis: same (Involving skin and subcu fat.) Procedure & Clinicians Procedure: Excisional debridement of skin and subcu fat. Area measured 7 x 5 cm. Same procedure as scheduled: Yes Indications: Necrotic foul-smelling tissue from a pressure ulcer Surgeon: Truong Pathak Click Yes if Unassisted: Yes Anesthesia Type: General Operative Notes Findings: skin and underlying fat. Closure Type: not applicable Specimen(s): other (Cultures sent) Implants & Drains: None Estimated Blood Loss (mL): 20 Procedure in detail: The patient was placed in left lateral decubitus position after undergoing general LMA anesthesia in her bed. The necrotic area was exposed and prepped with Betadine and draped. I removed the skin and subcu fat. This was a all debrided knife and scissors. It was sharply excised. The base was healthy and bleeding profusely. Using a a pulse lavage was irrigated and hemostasis of major areas obtained with cautery. Dressing was applied and the patient was awakened and extubated. Complications: none Condition: stable Disposition: PACU Plan for aftercare: Wound care at the wound clinic. Dr. Higgins is already seen the patient.
--- NOTE | 2017-12-05 16:01 | PC.NURSE ---
Wound: Only concern this am was about her pain medications and some of her other meds. MD called and received order to give pt her usual meds except diabetic meds. After meds npo was maintained. Family at bedside. Off to OR at 1400. Denies any concerns at that time.
[2017-12-05] MEDS: LIDOCAINE 1% 30 ML INJ INJ (16:08)
--- NOTE | 2017-12-05 16:46 | PC.NURSE ---
5923 - Patient returned from PACU. Resting peacefully in bed for transport. Dressing to bottom has slight sanguinous drainage noted, but is dry and intact. Able to move all extremities. 94% on 3L O2. Encouraged to take deep breaths. Patient repositioned for comfort.
[2017-12-05] MEDS: dilTIAZem CD 240 MG CAP PO (18:29)
[2017-12-05] MEDS: OXYCODONE IR 5 MG TABLET 10 MG PO (19:52)
[2017-12-05] MEDS: SODIUM CHLORIDE 0.9% FLUSH 10 ML IV (19:52)
[2017-12-05] MEDS: ARIPiprazole 10 MG TABLET 2.5 MG PO (21:10)
[2017-12-05] MEDS: ATORVASTATIN 20 MG TABLET 40 MG PO (21:11)
[2017-12-05] MEDS: INSULIN GLARGINE 100 UNIT/ML 10ML VIAL SUBCUT (21:13)
[2017-12-05] MEDS: hydrOXYzine pamoate 25 MG CAPSULE PO (22:59)
[2017-12-06] VITALS (13 sets, daily range): BP systolic 103–136; BP diastolic 47–73; PULSE 64–78; RESP 14–18; TEMP 36.1–37; O2SAT 87–96
[2017-12-06] MEDS: LEVOTHYROXINE 88 MCG TABLET PO (05:43)
[2017-12-06] MEDS: LACTATED RINGERS 1,000 ML 42 ML IV (05:47)
[2017-12-06] MEDS: INSULIN GLARGINE 100 UNIT/ML 10ML VIAL SUBCUT ×2 (08:27→20:30)
[2017-12-06] MEDS: OXYCODONE ER 10 MG TAB 20 MG PO ×2 (08:34→20:25)
[2017-12-06] MEDS: MULTIVIT,CALC,MINS/IRON/FOLIC 1 TABLET 1 TAB PO (08:35)
[2017-12-06] MEDS: GABAPENTIN 400 MG CAPSULE 800 MG PO ×3 (08:35→21:26)
[2017-12-06] MEDS: PANTOPRAZOLE 20 MG TABLET PO (08:35)
[2017-12-06] MEDS: LISINOPRIL 10 MG TABLET PO ×2 (08:36→20:26)
[2017-12-06] MEDS: FUROSEMIDE 20 MG TABLET PO (08:36)
[2017-12-06] MEDS: buPROPion SR 100 MG TAB PO ×2 (08:36→20:28)
[2017-12-06] MEDS: POTASSIUM CHLORIDE 10 MEQ TAB PO (08:36)
[2017-12-06] MEDS: SODIUM CHLORIDE 0.9% FLUSH 10 ML IV ×2 (08:36→20:28)
[2017-12-06] MEDS: DULOXETINE 30 MG CAPSULE 60 MG PO (08:36)
--- NOTE | 2017-12-06 09:12 | PM.DS.1 ---
History of Present Illness Date Patient Seen: 12/06/17 Time Patient Seen: 09:12 Chief complaint: wound care Narrative: 77-year-old morbidly obese female who was brought to the [facility] Emergency room from the wound clinic earlier today due to concern of pressure ulcer in the sacrum and possible wound infection. She said the nurse has noticed ulceration in the sacrum about 3-4 weeks ago. Recently the ulcers seem to have gotten worse. She was brought to the wound clinic earlier today. The ict security specialist was concerned about possible necessity of surgical I&D of the ulceration. She was subsequently sent to the emergency room. Patient denies fevers or chills. She does have discomfort locally when she is in certain sitting position. She has been laying in bed or sitting in the wheelchair. She is not able to change her body position frequently. She also was found to have an ulceration on her heel. Discharge Providers Date of admission: 12/04/17 15:49 Primary care physician: Abelardo Hussein MD Discharge provider: JUANJO Pavon Summary Discharge Diagnosis: 1. Stage II/III pressure ulcer in sacrum and right heel, surgical debridement 2. Type 2 diabetes 3. Chronic pain 4. Chronic atrial fibrillation 5. Hypertension 6. GERD 7. Hypothyroidism 8. Hyperlipidemia 9. Morbid obesity, BMI 57.1 10. Hospital Course: This is a summary of a 2 day hospitalization for this 77-year-old morbidly obese pleasant female who presented with pressure ulcer on the sacrum which required surgical debridement. Patient was taken to the OR where the stage III ulcer was debrided of skin and subcutaneous fat. The base of the wound appeared healthy. Culture of the wound was taken which shows preliminary gram-negative bacillus and Staph coccus. Culture and sensitivity pending. Her diabetes, chronic pain, atrial fibrillation, hypertension, GERD, hypothyroidism, hyperlipidemia were all medically managed with her usual outpatient medications. The patient also had a urine culture sent which showed gram-negative E coli but had an unremarkable urinary sediment and the patient experienced no symptoms. This is likely an asymptomatic bacteriuria and treatment is not indicated at this time. She will be transferred back to [facility] today and will need follow up with wound care clinic on Saturday. Status at Discharge Functional status at discharge: wheelchair bound Overall status at discharge: patient is back to baseline Time Spent with Patient Greater than 30 minutes Exam Vital Signs (past 8 hours): - 12/06/17 04:30 12/06/17 08:00 Temperature 98.0 F 97.4 F L Pulse Rate 72 64 Respiratory Rate 18 14 Blood Pressure 136/69 H 132/70 H Pulse Oximetry 94 95 Oxygen Delivery Method Room Air Oxygen Flow Rate 3 Narrative Exam Narrative: cooperative, comfortable and well groomed Nutritional Appearance: obese morbidly obese Orientation: alert, awake and oriented x3 HENMT Head: normal to inspection, normocephalic and atraumatic Eyes General: appearance normal, both eyes and all related structures Pupils: PERRL Neck Neck: supple Other: No lymphedema Chest Chest: normal inspection of the chest Resp Effort & Inspection: normal respiratory effort and able to speak in complete sentences Auscultation: clear to auscultation bilaterally Cardio Heart Sounds: S1 normal and S2 normal Other: Pulse rate slightly irregular. Has history of atrial fibrillation. No rubs clicks or murmurs appreciated GI Inspection: obesity Palpation: soft Auscultation: normal bowel sounds Other: No guarding or rebound tenderness. Other: Urinary catheter drawn drain in place draining ample amounts of clear hedy urine. Skin General: no rashes or lesions noted, dry skin and warm Other: She has a stage 2/3 pressure ulceration of the skin fold in the sacrum. About 2 cm x 1 cm. The ulceration is chronic in appearance and there is no obvious tissue swelling or fluctuation. There is no purulent drainage at this point. Wound is covered with a dressing. Neuro General: alert, awake and oriented x3 Cognition: normal cognition Speech: speech normal Motor: muscle tone normal throughout Sensory Exam: other (Decreased sensation noted over both lower extremities.) Extrem General: capillary refill normal and no calf tenderness Other: Chronic venous stasis rash noted to both lower extremities. No significant pitting edema. She does have an approximate 3 cm fluid-filled blister on her right heel. Objective Labs Result Diagrams: 12/04/17 11:13 12/04/17 11:13 Discharge Plan Discharge Plan Patient Disposition: SNF Transfer to: [facility] Transportation: Facility vehicle Discharge comment: Will need to be followed up with wound care on Saturday. I certify the postop hospital snf care is medically necessary on a continuing basis for any conditions for which he/ she received care during this hospitalization.: Yes The receiving facility has agreed to accept transfer and provide medical treatment.: Yes Discharge Health Status Precautions: [place] Provider Discharge Instructions Diet: Carb-consistent/Diabetic Food texture: Regular Activity: Turn in bed at least every 2 hr to prevent pressure sacral area. Up in chair as tolerated Oxygen: Room air Wound Care Report to your healthcare provider any signs of infection, such as:: chills, fever, night sweats, increased pain and unusual drainage Special Rehabilitation Services Rehab type: Physical therapy and Occupational therapy Discharge Data Primary Care Provider: Abelardo Hussein V Attending Provider: Johanna Roland Admit Date/Time: 12/04/17 15:49 Quality VTE Deep Vein Thrombosis/Pulmonary Embolism Present on Admission: No
--- NOTE | 2017-12-06 09:18 | P.DS_ITS ---
History of Present Illness Date Patient Seen: 12/06/17 Time Patient Seen: 09:12 Chief complaint: wound care Narrative: 77-year-old morbidly obese female who was brought to the [facility] Emergency room from the wound clinic earlier today due to concern of pressure ulcer in the sacrum and possible wound infection. She said the nurse has noticed ulceration in the sacrum about 3-4 weeks ago. Recently the ulcers seem to have gotten worse. She was brought to the wound clinic earlier today. The traffic control specialist was concerned about possible necessity of surgical I&D of the ulceration. She was subsequently sent to the emergency room. Patient denies fevers or chills. She does have discomfort locally when she is in certain sitting position. She has been laying in bed or sitting in the wheelchair. She is not able to change her body position frequently. She also was found to have an ulceration on her heel. Discharge Providers Date of admission: 12/04/17 15:49 Primary care physician: Abelardo Hussein MD Discharge provider: JUANJO Pavon Summary Discharge Diagnosis: 1. Stage II/III pressure ulcer in sacrum and right heel, surgical debridement 2. Type 2 diabetes 3. Chronic pain 4. Chronic atrial fibrillation 5. Hypertension 6. GERD 7. Hypothyroidism 8. Hyperlipidemia 9. Morbid obesity, BMI 57.1 10. Hospital Course: This is a summary of a 2 day hospitalization for this 77-year- old morbidly obese pleasant female who presented with pressure ulcer on the sacrum which required surgical debridement. Patient was taken to the OR where the stage III ulcer was debrided of skin and subcutaneous fat. The base of the wound appeared healthy. Culture of the wound was taken which shows preliminary gram-negative bacillus and Staph coccus. Culture and sensitivity pending. Her diabetes, chronic pain, atrial fibrillation, hypertension, GERD, hypothyroidism, hyperlipidemia were all medically managed with her usual outpatient medications. The patient also had a urine culture sent which showed gram-negative E coli but had an unremarkable urinary sediment and the patient experienced no symptoms. This is likely an asymptomatic bacteriuria and treatment is not indicated at this time. She will be transferred back to [facility] today and will need follow up with wound care clinic on Saturday. Status at Discharge Functional status at discharge: wheelchair bound Overall status at discharge: patient is back to baseline Time Spent with Patient Greater than 30 minutes Exam Vital Signs (past 8 hours): - 12/06/17 04:30 12/06/17 08:00 Temperature 98.0 F 97.4 F L Pulse Rate 72 64 Respiratory Rate 18 14 Blood Pressure 136/69 H 132/70 H Pulse Oximetry 94 95 Oxygen Delivery Method Room Air Oxygen Flow Rate 3 Narrative Exam Narrative: cooperative, comfortable and well groomed Nutritional Appearance: obese morbidly obese Orientation: alert, awake and oriented x3 HENMT Head: normal to inspection, normocephalic and atraumatic Eyes General: appearance normal, both eyes and all related structures Pupils: PERRL Neck Neck: supple Other: No lymphedema Chest Chest: normal inspection of the chest Resp Effort & Inspection: normal respiratory effort and able to speak in complete sentences Auscultation: clear to auscultation bilaterally Cardio Heart Sounds: S1 normal and S2 normal Other: Pulse rate slightly irregular. Has history of atrial fibrillation. No rubs clicks or murmurs appreciated GI Inspection: obesity Palpation: soft Auscultation: normal bowel sounds Other: No guarding or rebound tenderness. Other: Urinary catheter drawn drain in place draining ample amounts of clear hedy urine. Skin General: no rashes or lesions noted, dry skin and warm Other: She has a stage 2/3 pressure ulceration of the skin fold in the sacrum. About 2 cm x 1 cm. The ulceration is chronic in appearance and there is no obvious tissue swelling or fluctuation. There is no purulent drainage at this point. Wound is covered with a dressing. Neuro General: alert, awake and oriented x3 Cognition: normal cognition Speech: speech normal Motor: muscle tone normal throughout Sensory Exam: other (Decreased sensation noted over both lower extremities.) Extrem General: capillary refill normal and no calf tenderness Other: Chronic venous stasis rash noted to both lower extremities. No significant pitting edema. She does have an approximate 3 cm fluid-filled blister on her right heel. Objective Labs Result Diagrams: 12/04/17 11:13 12/04/17 11:13 Discharge Plan Discharge Plan Patient Disposition: SNF Transfer to: [facility] Transportation: Facility vehicle Discharge comment: Will need to be followed up with wound care on Saturday. I certify the [facility] [place] [facility] care is medically necessary on a continuing basis for any conditions for which he/ she received care during this hospitalization.: Yes The receiving facility has agreed to accept transfer and provide medical treatment.: Yes Discharge Health Status Precautions: [place] Provider Discharge Instructions Diet: Carb-consistent/Diabetic Food texture: Regular Activity: Turn in bed at least every 2 hr to prevent pressure sacral area. Up in chair as tolerated Oxygen: Room air Wound Care Report to your healthcare provider any signs of infection, such as:: chills, fever, night sweats, increased pain and unusual drainage Special Rehabilitation Services Rehab type: Physical therapy and Occupational therapy Discharge Data Primary Care Provider: Abelardo Hussein V Attending Provider: Johanna Roland Admit Date/Time: 12/04/17 15:49 Quality VTE Deep Vein Thrombosis/Pulmonary Embolism Present on Admission: No
--- NOTE | 2017-12-06 11:30 | CM.DPC ---
Addendum entered by Marichuy Delatorre, JAMAAL 12/06/17 13:10: Roma/[facility] was here, observed dressing change and noted it took far to long due primarily to pt's size and the facility could not accommodate this. She said you can try [facility] but I don't think they'll take her. Introduced her to Matthew and Dr. uHssein and she confirmed same. Called [facility] and spoke with Yvrose/business office/on for admissions today and tomorrow. She had been updated re potential need by Belinda/[facility] and stated that they could accept pt but would need to get in bariatric equipment. She stated we don't allow electric wheelchairs in our building so pt's bariatric electric chair would not be used there. Bariatric bed will also be needed. P: [facility] when dme in place, likely tomorrow. Signed orders and scripts meant for the d/c to [facility] today are in the red folder/chart at [facility]. May need to be updated. Dr. Hussein is aware, d/c planned for tomorrow. DCP team to follow accordingly. Transport: expect pt to go in her motorized w/c as per the plan for transport to [facility] today. The w/c can then go back to [facility] to await her return to the facility. Discussed same with Yvrose/[facility] P: [facility] tomorrow, using Medicare snf benefit. PASRR: needed: will try to complete today as time allows. Original Note: DCP: continued: Hospitalist team JUANJO Castro and Dr. Hussein have both deemed pt stable to return today to her assisted living facility/[facility]. Reviewed EMR and pulled off op report and d/c summary for Roma/[facility] to reviewed. Spoke then with her and she will come over to see pt this morning to determine if they can accept her back or if snf level care will be needed. (at this point this would be pvt pay as pt is only with a 2 day LOS as inpt) Conferred with MARTHA Clark re the wound care. She states order is wet to dry and she will wait until Roma arrives before doing the dressing change so that Roma can see what is involved. Matthew and Dr. Hussein are updated. P: d/c today...will follow closely. Pt would transport via electric w/c in the facility van.
--- NOTE | 2017-12-06 14:01 | PC.NURSE ---
Wound/Skin: Nurse from facility here to [facility] pt, they are unable to accept at this time. Also discussed hargrove. Hargrove to be left in now for wound care since pt would be voiding right on the wound and her mobility is so limited. Did have a little bleeding from wound when dressing changed. Tender. After dressing completed the patient was asked about pain and declined any further pain med. SS working on appropriate transfer. Cont w/poc.
[2017-12-06] MEDS: dilTIAZem CD 240 MG CAP PO (16:39)
[2017-12-06] MEDS: MIRABEGRON 25 MG PO (16:40)
[2017-12-06] MEDS: OXYCODONE IR 5 MG TABLET 10 MG PO (16:53)
[2017-12-06] MEDS: INSULIN ASPART 100 UNIT/ML INSULN PEN SUBCUT (18:26)
[2017-12-06] MEDS: ATORVASTATIN 20 MG TABLET 40 MG PO (20:27)
[2017-12-06] MEDS: ARIPiprazole 10 MG TABLET 2.5 MG PO (20:27)
--- NOTE | 2017-12-06 20:42 | PC.NURSE ---
Pt positioned onto left side with three staff members for wound dressing change. Scant amount fresh blood on incontinent pad. Old packing easily removed. Opened 4 x 4 saturated with normal saline and using Qtip, placed into bed of wound. Covered with ABD pad, peripad and pt prefers to remain on left side for comfort.
[2017-12-07] MEDS: ACETAMINOPHEN 325 MG TABLET 650 MG PO (01:49)
[2017-12-07] MEDS: LACTATED RINGERS 1,000 ML 42 ML IV (01:50)
[2017-12-07 04:17] VITALS: BP 117/79; PULSE 71; RESP 16; TEMP 36.4; O2SAT 94
[2017-12-07] MEDS: LEVOTHYROXINE 88 MCG TABLET PO (06:46)
[2017-12-07 08:00] VITALS: BP 118/44; PULSE 67; RESP 16; TEMP 36.3; O2SAT 96
[2017-12-07] MEDS: OXYCODONE ER 10 MG TAB 20 MG PO (08:44)
[2017-12-07] MEDS: PANTOPRAZOLE 20 MG TABLET PO (08:45)
[2017-12-07] MEDS: MULTIVIT,CALC,MINS/IRON/FOLIC 1 TABLET 1 TAB PO (08:45)
[2017-12-07] MEDS: LISINOPRIL 10 MG TABLET PO (08:45)
[2017-12-07] MEDS: buPROPion SR 100 MG TAB PO (08:45)
[2017-12-07] MEDS: DULOXETINE 30 MG CAPSULE 60 MG PO (08:45)
[2017-12-07] MEDS: FUROSEMIDE 20 MG TABLET PO (08:46)
[2017-12-07] MEDS: GABAPENTIN 400 MG CAPSULE 800 MG PO (08:46)
[2017-12-07] MEDS: POTASSIUM CHLORIDE 10 MEQ TAB PO (08:46)
[2017-12-07] MEDS: INSULIN GLARGINE 100 UNIT/ML 10ML VIAL SUBCUT (08:49)
--- NOTE | 2017-12-07 09:15 | PC.NURSE ---
Day shift: Dr Rocha called and said that this Pt is cleared by him to discharge today.
--- NOTE | 2017-12-07 10:39 | PM.PN.1 ---
Subjective Interval history: No new events reported overnight. Discharge delayed due to placement issue. Exam Vital Signs (past 8 hours): - 12/07/17 04:17 12/07/17 08:00 Temperature 97.5 F L 97.3 F L Pulse Rate 71 67 Respiratory Rate 16 16 Blood Pressure 117/79 118/44 L Pulse Oximetry 94 96 Oxygen Delivery Method Nasal Cannula Oxygen Flow Rate 3 Objective Labs Result Diagrams: 12/04/17 11:13 12/04/17 11:13 Assessment & Plan Plan: Assessment/Plan Narrative: 1. Stage II/III pressure ulcer in sacrum and right heel, surgical debridement 2. Type 2 diabetes 3. Chronic pain 4. Chronic atrial fibrillation 5. Hypertension 6. GERD 7. Hypothyroidism 8. Hyperlipidemia 9. Morbid obesity, BMI 57.1 Plan for discharge to nursing home for ongoing wound dressing changes and wound care. Quality VTE Deep Vein Thrombosis/Pulmonary Embolism Present on Admission: No
[2017-12-07 11:46] VITALS: O2SAT 93
[2017-12-07] MEDS: INSULIN ASPART 100 UNIT/ML INSULN PEN SUBCUT (12:15)
--- NOTE | 2017-12-07 12:25 | PC.NURSE ---
Day shift: Report given to [facility] RN at approx [phone].
--- NOTE | 2017-12-07 13:49 | PC.NURSE ---
Day shift: Pt Amrita lifted into [facility] chair. Her moterized WC is in room 201 w/ Pt outbound sales consultant it awaiting [facility] person to come get after they drop Pt off. She has all personal belongings as well as transfer packet.
[2017-12-07 13:51] VITALS: BP 142/78; PULSE 67; RESP 16; TEMP 36.3; O2SAT 96
--- NOTE | 2017-12-07 14:20 | CM.DPC ---
DCP Cont: Contacted [facility], spoke to Roma to ensure that patient could be admitted to facility today. Stated that they did have bariatric equipment on board. Sent discharge information and PASSR via fax to facility. P: Discharge to Replaced By [facility] today, via wheel-chair Justine Issa RN/[place] Code Enforcement Officer
== END 2017-12-07 13:53 | DRG 570 ==
LOC: ED 14:20 → AC 15:50
PROVIDERS: Specialist; Admitting Provider Internal Medicine; Emergency Provider Emergency Medicine; PCP Internal Medicine; Visit Provider Internal Medicine
PROC: 0JB70ZZ Excision of Back Subcutaneous Tissue and Fascia, Open Approach (ICD-10-PCS; CPT 46040; principal; 2017-12-05 14:00)
DX: L89.153 Pressure ulcer of sacral region, stage 3 (principal); I96 Gangrene, not elsewhere classified; Z68.43 Body mass index [BMI] 50.0-59.9, adult; L89.619 Pressure ulcer of right heel, unspecified stage; E66.01 Morbid (severe) obesity due to excess calories; E11.9 Type 2 diabetes mellitus without complications; Z79.4 Long term (current) use of insulin; G89.29 Other chronic pain; I48.2 Chronic atrial fibrillation; Z79.01 Long term (current) use of anticoagulants; I10 Essential (primary) hypertension; K21.9 Gastro-esophageal reflux disease without esophagitis; E03.9 Hypothyroidism, unspecified; E78.5 Hyperlipidemia, unspecified; G60.9 Hereditary and idiopathic neuropathy, unspecified; G47.33 Obstructive sleep apnea (adult) (pediatric); I87.2 Venous insufficiency (chronic) (peripheral); Z99.3 Dependence on wheelchair; Z87.891 Personal history of nicotine dependence
CPT/HCPCS: 11042; 36415; 51701; 80048; 81001; 82962; 84145; 85025; 87070; 87075; 87077; 87086; 87147; 87186; 87205; 94760; 94762; 99221; 99283; J2405; J2704

== ENCOUNTER 2018-04-02 11:13 | Emergency (ER) | payer MEDICARE, OTHER, MEDICAID, SELFPAY ==
[2017-12-04 16:40] VITALS: BMI 57.1
--- NOTE | 2018-04-02 11:18 | ED.FALL ---
HPI - Fall General Chief Complaint: Fall Stated Complaint: GLF Time Seen by Provider: 04/02/18 11:18 Source: patient and EMS Mode of arrival: EMS Limitations: no limitations History of Present Illness HPI Narrative: 77-year-old female was in her wheelchair at the nursing facility when she stated that 1 of the wheels got stuck and the wheelchair. She fell forward. She landed on her knees and then fell forward and hit her forehead on the ground. Is on anticoagulation but no loss of consciousness. Related Data Home Medications Medication Instructions Recorded Confirmed acetaminophen 650 mg PO Q4HP PRN #0 07/05/16 04/02/18 atorvastatin 40 mg PO BEDTIME #0 07/05/16 04/02/18 bisacodyl 10 mg AR PRN PRN #0 07/05/16 04/02/18 bupropion HCl [Wellbutrin SR] 100 mg PO BID #0 07/05/16 04/02/18 diltiazem HCl 240 mg PO QPM #0 07/05/16 04/02/18 docusate sodium 200 mg PO BID #0 07/05/16 04/02/18 duloxetine [Cymbalta] 60 mg PO QDAY #0 07/05/16 04/02/18 furosemide [Lasix] 20 mg PO QDAY #0 07/05/16 04/02/18 gabapentin 800 mg PO TID #0 07/05/16 04/02/18 hydroxyzine pamoate [Vistaril] 25 mg PO Q6HP PRN #0 07/05/16 04/02/18 lisinopril 10 mg PO BID #0 07/05/16 04/02/18 nitroglycerin [Nitrostat] 0.4 mg SUBLINGUAL PRN PRN #0 07/05/16 04/02/18 rivaroxaban [Xarelto] 20 mg PO QDAY #0 07/05/16 04/02/18 aspirin 81 mg PO QDAY #0 04/08/17 04/02/18 diphenhydramine HCl [Benadryl 25 mg PO Q8HP PRN #0 04/08/17 04/02/18 Allergy] mirabegron [Myrbetriq] 25 mg PO QPM #0 04/08/17 04/02/18 ondansetron HCl 4 mg PO Q4HP PRN #0 04/08/17 04/02/18 aripiprazole [Abilify] 2.5 mg PO BEDTIME 12/04/17 04/02/18 bisacodyl 5 mg PO PRN PRN 12/04/17 04/02/18 bisacodyl 10 mg PO PRN PRN 12/04/17 04/02/18 levothyroxine 1 tab PO DAILY 12/04/17 04/02/18 menthol-zinc [id number]-sfwv oil 1 applic TOPICAL TID #0 12/04/17 04/02/18 [Chamosyn] multivitamin with minerals 1 tab PO DAILY 12/04/17 04/02/18 nystatin 1 applic TOPICAL PRN PRN 12/04/17 04/02/18 potassium chloride 10 meq PO DAILY 12/04/17 04/02/18 furosemide 40 mg PO DAILY PRN 04/02/18 04/02/18 magnesium hydroxide [Milk of 30 ml PO PRN PRN 04/02/18 04/02/18 Magnesia] mirtazapine 15 mg PO QPM 04/02/18 04/02/18 nortriptyline 25 mg PO BEDTIME 04/02/18 04/02/18 oxycodone 10 mg PO Q4H PRN 04/02/18 04/02/18 oxycodone [OxyContin] 20 mg PO Q12H 04/02/18 04/02/18 potassium chloride 10 meq PO PRN PRN 04/02/18 04/02/18 sodium phosphates [Fleet Enema] 1 ea AR PRN PRN 04/02/18 04/02/18 Previous Rx's Medication Instructions Recorded pantoprazole 20 mg PO QDAY #90 04/10/17 Allergies Allergy/AdvReac Type Severity Reaction Status Date / Time adhesive [ADHESIVE] Allergy Mild ALLERGY TO Verified 12/05/17 14:53 TAPE Review of Systems Constitutional Denies fatigue and Reports headache(s) ENT Ears, Nose, Mouth, and Throat: Denies dental pain, Denies dysphagia, Denies vertigo, Denies dizziness, Reports facial pain, Reports headache(s), Denies epistaxis and Denies sore throat Cardiovascular Denies chest pain and Denies dyspnea Respiratory Denies dyspnea Gastrointestinal Gastrointestinal: Denies abdominal pain and Denies dysphagia Musculoskeletal Denies myalgias and Reports arthralgias Integumentary/Breasts Comments: Bruising around the face Neurologic Denies vertigo, Denies dizziness and Reports headache(s) Endocrine Denies fatigue Exam Initial Vital Signs Initial Vital Signs: Vital Signs Temperature 98.7 F 04/02/18 11:22 Pulse Rate 84 04/02/18 11:22 Respiratory Rate 18 04/02/18 11:22 Blood Pressure 147/68 H 04/02/18 11:22 Pulse Oximetry 94 04/02/18 11:22 Const General: cooperative, comfortable, well developed, well groomed and No acute distress Orientation: alert, awake and oriented x3 [facility] Nose: external nose normal, No epistaxis and No septum abnormal Face and sinus: face symmetric, abrasion (Middle of the forehead just above the nose), no ecchymosis, no erythema, no edema and no lacerations Eyes Pupils: PERRL EOM: EOM intact bilaterally Resp Effort & Inspection: normal respiratory effort Auscultation: clear to auscultation bilaterally Cardio Rate: regular rate Pulses: radial pulses present GI Inspection: non-distended Palpation: soft, No firm and No tender Back/Spine/Pelvis Cervical Spine: No collar present, No cervical spasm, No cervical spinal tenderness and No step off deformity Skin Rashes: no rashes Neuro General: alert, awake and oriented x3 Cognition: normal cognition Speech: speech normal Extrem General: normal to inspection and capillary refill normal Psych Appearance: grossly normal and well kempt [facility] Medical History Anemia (Acute) Atherosclerotic heart disease of [place] coronary artery without angina pectoris (Acute) Atrial fibrillation (Acute) Chronic pain syndrome (Acute) Hereditary and idiopathic neuropathy, unspecified (Acute) Hypertensive chronic kidney disease with stage 1 through stage 4 chronic kidney disease, or unspecified chronic kidney disease (Acute) Insomnia (Acute) Major depressive disorder (Acute) Obstructive sleep apnea (Acute) Urinary incontinence (Acute) Venous insufficiency (chronic) (peripheral) (Acute) Wheelchair bound (Acute) Diabetes (Chronic) Gastroesophageal reflux disease (Chronic) Hypertension (Chronic) Hypothyroidism (Chronic) Obesity (Chronic) Surgical History History of bilateral knee replacement (Resolved) Social History Smoking Status: Never smoker alcohol intake: never Course Orders Ordered: ED Orders 04/02/18 11:18 CT head/brain wo con Stat XR knee LT 3V Stat 04/02/18 12:01 Basic Metabolic Panel Stat Complete Blood Count AUTO DIFF Stat Partial Thromboplastin Time Stat Prothrombin Time INR Stat Discontinued Medications Acetaminophen (Tylenol) 650 mg PO NOW ONE Stop: 04/02/18 12:34 Vital Signs - 8 hr 04/02/18 11:22 Temperature 98.7 F Pulse Rate 84 Respiratory Rate 18 Blood Pressure 147/68 H Pulse Oximetry 94 MDM - Fall Lab Data Attestation: I reviewed the patient's lab results. Result diagrams: 04/02/18 12:01 04/02/18 12:01 Lab Results 04/02/18 04/02/18 04/02/18 Range/Units 12:01 12:01 12:01 WBC 11.4 H (4.5-11.0) X10^3/uL RBC 4.28 (4.0-5.2) X10^6/uL Hgb 12.8 (12.0-16.0) g/dL Hct 38.8 (36-46) % MCV 90.8 (80-100) fL MCH 29.9 (26-34) PG MCHC 32.9 (30-36) % RDW 14.8 (11.6-14.8) % Plt Count 303 (150-400) X10^3/uL Neut % (Auto) 56.6 (50-75) % Lymph % (Auto) 16.3 L (25-40) % [place] % (Auto) 25.6 H (3-14) % Eos % (Auto) 0.8 L (2-4) % Baso % (Auto) 0.7 (0-2) % Neut # (Auto) 6500 H (9668-0023) /uL PT 24.9 H (10.1-12.7) SECONDS INR 2.3 H (0.9-1.3) APTT 40 H (26.4-36.2) SECONDS Sodium 140 (137-145) mmol/L Potassium 4.6 (3.4-5.1) mmol/L Chloride 98 (98-107) mmol/L Carbon Dioxide 31 (22-32) mmol/L BUN 16 (7-17) mg/dL Creatinine 0.80 (0.52-1.04) mg/dL Estimated GFR > 60.0 (>60) mL/min BUN/Creatinine Ratio 20.0 (6-22) Glucose 177 H (80-110) mg/dL Calcium 9.3 (8.4-10.2) mg/dL Imaging Data CT scan - head: Radiologist's impression: PROCEDURE: CT HEAD/BRAIN WO CON INDICATIONS: Ground level fall blood thinners hit head TECHNIQUE: Noncontrast 4.5 mm thick angled axial sections acquired from the foramen magnum to the vertex, with coronal and sagittal reformats. For radiation dose reduction, the following was used: automated exposure control, adjustment of mA and/or kV according to patient size. COMPARISON: [facility], CT, HEAD WITHOUT CONTRAST, 03/08/2016, 11:47. [facility], CT, HEAD WITHOUT CONTRAST, 08/24/2012, 13:12. FINDINGS: Image quality: Excellent except for patient mild motion during image acquisition and also metal artifact from extensive dental work. Repeat imaging with different angulation was utilized to reduce streak artifact across the posterior cranial fossa which was greater on the left than the right. CSF spaces: Basal cisterns are patent. No extra-axial fluid collections. The ventricles are symmetric in size and shape. Brain: No intracranial bleeds or masses. There is cerebral volume loss for age, with resultant ventricular and sulcal prominence. There are periventricular and deep white matter chronic small vessel ischemic changes. There is intracranial internal carotid artery atherosclerosis. Skull and face: Calvarium and visualized facial bones appear intact, without suspicious lesions. Sinuses: Visualized sinuses and mastoids are clear. IMPRESSION: No acute trauma. Mild patient motion during image acquisition and also streak artifact from dental work diminished quality of the initial image acquisition but repeat imaging with angulation changed to reduce artifact succeeded in clarifying the visualization of the posterior cranial fossa as noted above. Dictated by: Son Headley M.D. on 04/02/2018 at 11:39 Approved by: Son Headley M.D. on 04/02/2018 at 11:45 X-ray knee: Radiologist's impression: [address] [id number] XRay Report Signed Patient: Elena Danielson RMR#: [id number] : 2Acct:[id number] Age/Sex: 77 / FDate of Service: 04/02/18 Loc: ED Accession Number: [id number] Procedure: XR knee LT 3V Ordering Provider: Gilson Gonzalez D.O. PROCEDURE: XR KNEE LT 3V INDICATIONS: Fall with left knee pain TECHNIQUE: 3 views of the knee were acquired. COMPARISON: [facility], , KNEE 3V RIGHT, 09/01/2014, 14:05. [facility], , KNEE 1-2 VIEWS LEFT, 09/09/2007, 14:35. FINDINGS: Bones: No fractures or dislocations. No suspicious bony lesions. Prior left total knee arthroplasty. Soft tissues: No joint effusion. No suspicious soft tissue calcifications. IMPRESSION: Prior left total knee arthroplasty appears free of disruption. Dictated by: Son Headley M.D. on 04/02/2018 at 11:45 Approved by: Son Headley M.D. on 04/02/2018 at 11:46 MDM Narrative Medical decision making narrative: Head CT unremarkable Right knee x-ray unremarkable. Labs ordered per modified trauma protocol of head injury the patient anticoagulation. The contusions on her forehead do not need any stitches. Discussed this with the patient. Given return precautions. She expressed understanding and agreement with plan. Discharge Plan Departure Patient Disposition: Home Clinical Impression: Contusion of forehead, Acute knee pain Instructions: How to Prevent Falls Activity Restrictions/Additional Instructions: Continue all of your medications as directed. There were no fractures noted on any of the studies that were done today. Return to the emergency department for any new or worsening symptoms Prescriptions: No Action atorvastatin 40 MG tablet 40 mg PO BEDTIME Qty: 0 RF: 0 acetaminophen 325 MG tablet 650 mg PO Q4HP PRN (Reason: pain 1-3 or fever >100.1) Qty: 0 RF: 0 bupropion HCl [Wellbutrin SR] 100 MG tablet extended release 12 hr 100 mg PO BID Qty: 0 RF: 0 bisacodyl 10 MG suppository 10 mg AR PRN PRN (Reason: Constipation) Qty: 0 RF: 0 diltiazem HCl 240 MG capsule,extended release 24hr 240 mg PO QPM Qty: 0 RF: 0 docusate sodium 100 MG capsule 200 mg PO BID Qty: 0 RF: 0 gabapentin 800 MG tablet 800 mg PO TID Qty: 0 RF: 0 duloxetine [Cymbalta] 60 MG capsule,delayed release(DR/EC) 60 mg PO QDAY Qty: 0 RF: 0 lisinopril 10 MG tablet 10 mg PO BID Qty: 0 RF: 0 furosemide [Lasix] 20 MG tablet 20 mg PO QDAY Qty: 0 RF: 0 nitroglycerin [Nitrostat] 0.4 MG tablet, sublingual 0.4 mg Sublingual PRN PRN (Reason: Chest Pain) Qty: 0 RF: 0 hydroxyzine pamoate [Vistaril] 25 MG capsule 25 mg PO Q6HP PRN (Reason: Spasms) Qty: 0 RF: 0 rivaroxaban [Xarelto] 20 MG tablet 20 mg PO QDAY Qty: 0 RF: 0 aspirin 81 MG tablet,delayed release (DR/EC) 81 mg PO QDAY Qty: 0 RF: 0 mirabegron [Myrbetriq] 25 MG tablet extended release 24 hr 25 mg PO QPM Qty: 0 RF: 0 diphenhydramine HCl [Benadryl Allergy] 25 MG tablet 25 mg PO Q8HP PRN (Reason: Allergy Symptoms) Qty: 0 RF: 0 ondansetron HCl 4 MG tablet 4 mg PO Q4HP PRN (Reason: Nausea) Qty: 0 RF: 0 pantoprazole 20 MG tablet,delayed release (DR/EC) 20 mg PO QDAY Qty: 90 RF: 0 furosemide 40 mg Tablet 40 mg PO DAILY PRN (Reason: Edema) RF: 0 magnesium hydroxide [Milk of Magnesia] 400 mg/5 mL Suspension 30 ml PO PRN PRN (Reason: Constipation) RF: 0 sodium phosphates [Fleet Enema] 19-7 gram/118 mL Enema 1 ea AR PRN PRN (Reason: Constipation) RF: 0 mirtazapine 15 mg Tablet 15 mg PO QPM RF: 0 oxycodone 10 mg Tablet 10 mg PO Q4H PRN (Reason: Breakthrough Pain) RF: 0 oxycodone [OxyContin] 20 mg Tablet,Oral Only,Ext.Rel.12 Hr 20 mg PO Q12H RF: 0 potassium chloride 10 mEq Capsule, Extended Release 10 meq PO PRN PRN (Reason: Edema) RF: 0 nortriptyline 25 mg Capsule 25 mg PO BEDTIME RF: 0 levothyroxine 88 mcg tablet 1 tab PO DAILY RF: 0 potassium chloride 10 mEq Tablet Extended Release 10 meq PO DAILY RF: 0 multivitamin with minerals Tablet 1 tab PO DAILY RF: 0 bisacodyl 5 mg Tablet 5 mg PO PRN PRN (Reason: Constipation) RF: 0 bisacodyl 5 mg Tablet 10 mg PO PRN PRN (Reason: Constipation) RF: 0 menthol-zinc ce-unbj-znxw oil [Chamosyn] 0.45-20 % Ointment 1 applic Topical TID Qty: 0 RF: 0 nystatin 100,000 unit/gram Powder 1 applic TOPICAL PRN PRN (Reason: Rash) RF: 0 aripiprazole [Abilify] 5 MG tablet 2.5 mg PO BEDTIME RF: 0
[2018-04-02 11:22] VITALS: BP 147/68; PULSE 84; RESP 18; TEMP 37.1; O2SAT 94; BMI 52.8
[2018-04-02 12:13] LABS: Add Manual Diff / Slide Review NO; Basophils Percent Auto 0.7 % (0-2); Eosinophils Percent Auto 0.8 % (2-4); Hematocrit 38.8 % (36-46); Hemoglobin 12.8 g/dL (12.0-16.0); Lymphocytes Percent Auto 16.3 % (25-40); Mean Corpuscular HGB Conc 32.9 % (30-36); Mean Corpuscular Hemoglobin 29.9 PG (26-34); Mean Corpuscular Volume 90.8 fL (80-100); Monocytes Percent Auto 25.6 % (3-14); Neutrophils Absolute Auto 6500 /uL (3000-5900); Neutrophils Percent Auto 56.6 % (50-75); Platelet Count 303 X10^3/uL (150-400); Red Blood Cell Count 4.28 X10^6/uL (4.0-5.2); Red Cell Distribution Width 14.8 % (11.6-14.8); White Blood Cell Count 11.4 X10^3/uL (4.5-11.0)
[2018-04-02 12:19] LABS: INR 2.3 (0.9-1.3); Prothrombin Time 24.9 SECONDS (10.1-12.7)
[2018-04-02 12:21] LABS: PTT Partial Thromboplastin Tim 40 SECONDS (26.4-36.2)
[2018-04-02 12:23] LABS: Blood Urea Nitrogen 16 mg/dL (7-17); Calcium 9.3 mg/dL (8.4-10.2); Carbon Dioxide 31 mmol/L (22-32); Chloride 98 mmol/L (98-107); Estimated Glomerular Filt Rate > 60.0 mL/min (>60); Glucose 177 mg/dL (80-110); HEMOLYSIS 22 (0-50); Potassium 4.6 mmol/L (3.4-5.1); Sodium 140 mmol/L (137-145)
[2018-04-02] MEDS: ACETAMINOPHEN 325 MG TABLET 650 MG PO (12:46)
[2018-04-02 13:31] VITALS: BP 122/76; PULSE 76; RESP 18; O2SAT 97
== END 2018-04-02 13:42 | disposition home or self-care (01) ==
PROVIDERS: Emergency Provider Emergency Medicine; PCP Internal Medicine
DX: S00.83XA Contusion of other part of head, initial encounter (principal); M25.562 Pain in left knee; W05.0XXA Fall from non-moving wheelchair, initial encounter
CPT/HCPCS: 36415; 70450; 73562; 80048; 85025; 85610; 85730; 99282; 99284

== ENCOUNTER 2018-04-03 20:25 | Inpatient (IN) | payer MEDICARE, OTHER, MEDICAID, SELFPAY ==
[2017-12-04 16:40] VITALS: BMI 57.1
[2018-04-03 20:37] VITALS: BP 138/93; PULSE 101; RESP 18; TEMP 38.5; O2SAT 94; BMI 55.2
--- NOTE | 2018-04-03 20:45 | DI.US.S_ITS ---
PROCEDURE: US EXTREMITY NONVASC LOWER LT INDICATIONS: hematoma, left leg, fever TECHNIQUE: Real-time scanning was performed of the left lower extremity, with image documentation. COMPARISON: [facility], X-ray left knee, 3 views. FINDINGS: Ultrasound was performed in the area of interest. There is a large, avascular complex mass in the medial aspect of the left calf measuring 12.6 x 6 1 x 11.2 cm. IMPRESSION: A large complex mass in the medial aspect of the left calf measuring 12.6 x 6.1 x 11.2 cm. It is compatible with a hematoma. Dictated by: Neil Narvaez M.D. on 04/03/2018 at 21:55 Approved by: Neil Narvaez M.D. on 04/03/2018 at 21:58
--- NOTE | 2018-04-03 20:45 | DI.RAD.S_ITS ---
PROCEDURE: XR CHEST 1V INDICATIONS: fever, pain in leg, large hematoma TECHNIQUE: One view of the chest was acquired. COMPARISON: [facility], CT, PE STUDY (CTA CHEST), 04/12/2016, 11:53. [facility], CR, CHEST 1 VIEW, 04/12/2016, 10:41. [facility], CR, CHEST 1 VIEW, 04/08/2017, 17:10. FINDINGS: Surgical changes and devices: None. Lungs and pleura: No pleural effusions or pneumothorax. Mild left basilar atelectasis. Mediastinum: Mediastinal contours appear normal. Heart size is mildly increased. Bones and chest wall: No suspicious bony lesions. Overlying soft tissues appear unremarkable. IMPRESSION: Mild cardiomegaly. Left basilar atelectasis. Dictated by: Neil Narvaez M.D. on 04/03/2018 at 21:07 Approved by: Neil Narvaez M.D. on 04/03/2018 at 21:11
--- NOTE | 2018-04-03 20:53 | ED_ITS ---
HPI - Extremity Injury (Lower) General Chief Complaint: Extremity Injury, Lower Stated Complaint: Leg Pain Time Seen by Provider: 04/03/18 20:37 Source: patient Mode of arrival: EMS Limitations: no limitations History of Present Illness HPI Narrative: This is a 77-year-old female who comes in with complaint of left lower extremity pain. Patient states she had a fall yesterday was seen in the emergency department. She has a hematoma on and has increasing pain has not been controlled with Tylenol, oxycodone and Vistaril at [facility]. Patient states that she is not having any numbness or tingling into the foot she has had increasing pain. She does not do much in the way of ambulation. Patient also has a fever of 101.3. She has not noticed any fevers. She denies any chest pain or shortness of breath, she denies any cold cough or congestion. She denies any abdominal pain. Nausea or vomiting no new GI or urinary symptoms. She does have a chronic Hargrove catheter. Related Data Home Medications Medication Instructions Recorded Confirmed acetaminophen 650 mg PO Q4HP PRN #0 07/05/16 04/02/18 atorvastatin 40 mg PO BEDTIME #0 07/05/16 04/02/18 bisacodyl 10 mg [place] PRN PRN #0 07/05/16 04/02/18 bupropion HCl [Wellbutrin SR] 100 mg PO BID #0 07/05/16 04/02/18 diltiazem HCl 240 mg PO QPM #0 07/05/16 04/02/18 docusate sodium 200 mg PO BID #0 07/05/16 04/02/18 duloxetine [Cymbalta] 60 mg PO QDAY #0 07/05/16 04/02/18 furosemide [Lasix] 20 mg PO QDAY #0 07/05/16 04/02/18 gabapentin 800 mg PO TID #0 07/05/16 04/02/18 hydroxyzine pamoate [Vistaril] 25 mg PO Q6HP PRN #0 07/05/16 04/02/18 lisinopril 10 mg PO BID #0 07/05/16 04/02/18 nitroglycerin [Nitrostat] 0.4 mg SUBLINGUAL PRN PRN #0 07/05/16 04/02/18 rivaroxaban [Xarelto] 20 mg PO QDAY #0 07/05/16 04/02/18 aspirin 81 mg PO QDAY #0 04/08/17 04/02/18 diphenhydramine HCl [Benadryl 25 mg PO Q8HP PRN #0 04/08/17 04/02/18 Allergy] mirabegron [Myrbetriq] 25 mg PO QPM #0 04/08/17 04/02/18 ondansetron HCl 4 mg PO Q4HP PRN #0 04/08/17 04/02/18 aripiprazole [Abilify] 2.5 mg PO BEDTIME 12/04/17 04/02/18 bisacodyl 5 mg PO PRN PRN 12/04/17 04/02/18 bisacodyl 10 mg PO PRN PRN 12/04/17 04/02/18 levothyroxine 1 tab PO DAILY 12/04/17 04/02/18 menthol-zinc [id number] oil 1 applic TOPICAL TID #0 12/04/17 04/02/18 [Chamosyn] multivitamin with minerals 1 tab PO DAILY 12/04/17 04/02/18 nystatin 1 applic TOPICAL PRN PRN 12/04/17 04/02/18 potassium chloride 10 meq PO DAILY 12/04/17 04/02/18 furosemide 40 mg PO DAILY PRN 04/02/18 04/02/18 hydrocortisone 1 applic TOPICAL Q4H PRN 04/02/18 04/02/18 insulin aspart U-100 [Novolog 1 dose SUBCUT PRN PRN 04/02/18 04/02/18 U-100 Insulin aspart] insulin glargine [Lantus Solostar 95 units SUBCUT BID 04/02/18 04/02/18 U-100 Insulin] magnesium hydroxide [Milk of 30 ml PO PRN PRN 04/02/18 04/02/18 Magnesia] mirtazapine 15 mg PO QPM 04/02/18 04/02/18 nortriptyline 25 mg PO BEDTIME 04/02/18 04/02/18 oxycodone 10 mg PO Q4H PRN 04/02/18 04/02/18 oxycodone [OxyContin] 20 mg PO Q12H 04/02/18 04/02/18 potassium chloride 10 meq PO PRN PRN 04/02/18 04/02/18 sodium phosphates [Fleet Enema] 1 ea [place] PRN PRN 04/02/18 04/02/18 acetaminophen 650 mg PO Q4H PRN 04/03/18 04/03/18 aripiprazole 2.5 mg PO DAILY 04/03/18 04/03/18 aspirin [Aspir-Low] 81 mg PO DAILY 04/03/18 04/03/18 atorvastatin 40 mg PO DAILY 04/03/18 04/03/18 bupropion HCl 100 mg PO BID 04/03/18 04/03/18 diltiazem HCl 240 mg PO DAILY 04/03/18 04/03/18 docusate sodium 200 mg PO BID 04/03/18 04/03/18 duloxetine 60 mg PO DAILY 04/03/18 04/03/18 furosemide [Lasix] 20 mg PO DAILY 04/03/18 04/03/18 gabapentin 800 mg PO TID 04/03/18 04/03/18 hydroxyzine pamoate [Vistaril] 25 mg PO QID PRN 04/03/18 04/03/18 levothyroxine 88 mcg PO DAILY 04/03/18 04/03/18 lisinopril 10 mg PO BID 04/03/18 04/03/18 menthol-zinc hk-krsb-hdfi oil 1 applic TOPICAL TID 04/03/18 04/03/18 [Chamosyn] mirabegron [Myrbetriq] 25 mg PO DAILY 04/03/18 04/03/18 mirtazapine 15 mg PO DAILY 04/03/18 04/03/18 multivitamin with iron-mineral 1 tab PO DAILY 04/03/18 04/03/18 nortriptyline 25 mg PO BEDTIME 04/03/18 04/03/18 oxycodone 10 mg PO Q4-6H PRN 04/03/18 04/03/18 oxycodone [OxyContin] 20 mg PO Q12H 04/03/18 04/03/18 pantoprazole 20 mg PO DAILY 04/03/18 04/03/18 potassium chloride 10 meq PO DAILY 04/03/18 04/03/18 rivaroxaban [Xarelto] 20 mg PO DAILY 04/03/18 04/03/18 Previous Rx's Medication Instructions Recorded pantoprazole 20 mg PO QDAY #90 04/10/17 Allergies Allergy/AdvReac Type Severity Reaction Status Date / Time adhesive [ADHESIVE] Allergy Mild ALLERGY TO Verified 12/05/17 14:53 TAPE Review of Systems Review of Systems All systems reviewed & are unremarkable except as noted in HPI and below Constitutional Reports fever(s) Cardiovascular Denies chest pain, Denies irregular heart rhythm, Denies lightheadedness, Denies palpitations, Denies dyspnea, Denies dyspnea on exertion and Denies orthopnea Respiratory Denies cough, Denies dyspnea, Denies dyspnea on exertion and Denies wheezing Gastrointestinal Gastrointestinal: Denies abdominal pain, Denies change in bowel habits, Denies diarrhea, Denies nausea and Denies vomiting Genitourinary Reports other (hargrove catheter) Musculoskeletal Denies back pain, Reports limited range of motion, Denies tingling and Reports other (leg pain) Integumentary/Breasts Reports skin swelling and Reports unusual bruising Neurologic Denies tingling Endocrine Denies palpitations Allergic/Immunologic Denies wheezing [facility] Medical History Anemia (Acute) Anemia (Acute) Atherosclerotic heart disease (Acute) Atherosclerotic heart disease of [place] coronary artery without angina pectoris (Acute) Atrial fibrillation (Acute) Chronic kidney disease, stage 3 (Acute) Chronic pain syndrome (Acute) Chronic pain syndrome (Acute) Gastro-esophageal reflux disease without esophagitis (Acute) Hereditary and idiopathic neuropathy, unspecified (Acute) Hyperlipidemia (Acute) Hypertensive chronic kidney disease with stage 1 through stage 4 chronic kidney disease, or unspecified chronic kidney disease (Acute) Hypothyroidism (Acute) Insomnia (Acute) 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 (Acute) 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 (Acute) Major depressive disorder (Acute) Major depressive disorder (Acute) Morbid obesity due to excess calories (Acute) Obstructive sleep apnea (Acute) Obstructive sleep apnea (Acute) Type 2 diabetes mellitus (Acute) Urinary incontinence (Acute) Urinary incontinence (Acute) Venous insufficiency (chronic) (peripheral) (Acute) Venous insufficiency (chronic) (peripheral) (Acute) Wheelchair bound (Acute) Diabetes (Chronic) Gastroesophageal reflux disease (Chronic) Hypertension (Chronic) Hypothyroidism (Chronic) Obesity (Chronic) Surgical History History of bilateral knee replacement (Resolved) Family History: Reviewed 04/04/18 by Jerry Amador MD Social History household members: spouse Smoking Status: Never smoker alcohol intake: never Exam Narrative Exam Narrative: GENERAL: Alert and oriented x three, morbidly obese female in moderate distress. HEENT: Head normocephalic, atraumatic, EOMI, pupils reactive, face symmetric, moist mucous membranes NECK: Supple, full range of motion CARDIOVASCULAR: Regular rate and rhythm without murmurs, rubs or gallops. RESPIRATORY: Breath sounds equal bilaterally, no wheezes rales or rhonchi. No tachypnea, no accessory muscle use. ABDOMEN: Soft, nontender. Normoactive bowel sounds all 4 quadrants. No guarding or rebound, rigidity, no mass : No CVA tenderness, Hargrove catheter in place draining dark urine with sediment EXTREMITIES: Patient has decreased range of motion, her left lower extremity has a large hematoma over the calf region. There appears to be a small opening. There is warmth over the area of hematoma and running down her calf towards her foot patient is able to dorsiflex and plantar flex without issue. She has no decrease in sensation to touch. She has 2+ pulses tibialis, no clubbing or edema. There is a little bit of erythema adjacent and running down the leg from the hematoma. Neurovascularly intact. Patient does not have any bony tenderness of the tibia or fibula with palpation. NEUROLOGICAL: Cranial nerves II through XII grossly intact. Moving all extremities SKIN: Warm, dry, no petechiae Initial Vital Signs Initial Vital Signs: Vital Signs Temperature 101.3 F H 04/03/18 20:37 Pulse Rate 101 H 04/03/18 20:37 Respiratory Rate 18 04/03/18 20:37 Blood Pressure 138/93 H 04/03/18 20:37 Pulse Oximetry 94 04/03/18 20:37 Course Orders Ordered: ED Orders 04/04/18 01:02 Lactate 4HR (Lactic Acid Rflx) Stat 04/04/18 01:34 Consult to Dietitian, Adult Routine 04/04/18 07:43 Education, smoking cessation ONGOING 04/05/18 05:00 Complete Blood Count AUTO DIFF Routine Comprehensive Metabolic Panel Routine Acetaminophen (Tylenol) 650 mg PO Q4H PRN PRN Reason: pain 1-3 or fever >100.1 Aripiprazole (Abilify) 2.5 mg PO BEDTIME [facility] Aspirin (Aspirin Ec) 81 mg PO DAILY [facility] Atorvastatin Calcium (Lipitor) 40 mg PO BEDTIME LUPILLO Bisacodyl (Dulcolax) 5 mg PO PRN PRN PRN Reason: CONSTIPATION Bupropion HCl (Wellbutrin Sr) 100 mg PO BID [facility] Dextrose (D50w) 25 gm IV PRN PRN; Protocol PRN Reason: Hypoglycemia Diltiazem HCl (Cardizem Cd) 240 mg PO QPM LUPILLO Docusate Sodium (Colace) 200 mg PO BID [facility] Duloxetine HCl (Cymbalta) 60 mg PO DAILY [facility] Furosemide (Lasix) 20 mg PO DAILY [facility] Gabapentin (Neurontin) 800 mg PO TID [facility] Sodium Chloride (Normal Saline 0.45%) 1,000 mls @ 50 mls/hr IV CONT [facility] Ceftriaxone Sodium/Dextrose (Rocephin) 2 gm in 50 mls @ 100 mls/hr IV Q24H [facility] Insulin Aspart (Novolog Flexpen) 0 unit SUBCUT ACHS LUPILLO; Protocol Insulin Aspart (Novolog Flexpen) 10 unit SUBCUT AC LUPILLO Insulin Glargine (Lantus Solostar (Pen)) 95 unit SUBCUT BID [facility] Levothyroxine Sodium (Synthroid) 88 mcg PO 0600 LUPILLO Lisinopril (Zestril) 10 mg PO BID [facility] Magnesium Hydroxide (Milk Of Magnesia) 30 ml PO DAILY PRN PRN Reason: Constipation Nystatin (Nystop) 1 applic TOP PRN PRN PRN Reason: Rash Ondansetron HCl (Zofran Odt) 4 mg PO Q4H PRN PRN Reason: Nausea Oxycodone HCl (Percolone) 10 mg PO Q4H PRN PRN Reason: Breakthrough Pain Oxycodone HCl (Oxycontin) 20 mg PO Q12H [facility] Pantoprazole Sodium (Protonix) 20 mg PO DAILY [facility] Potassium Chloride (Klor-Con M10) 10 meq PO DAILY [facility] Sennosides (Senna) 17.2 mg PO BEDTIME LUPILLO Discontinued Medications Acetaminophen (Tylenol) 975 mg PO NOW ONE Stop: 04/03/18 21:11 Last Admin: 04/03/18 21:25 Dose: 975 mg Hydromorphone HCl (Dilaudid) 1 mg IV NOW ONE Stop: 04/03/18 22:05 Last Admin: 04/03/18 22:11 Dose: 1 mg Vancomycin HCl 1,500 mg/ (Sodium Chloride) 500 mls @ 333.333 mls/hr IV NOW ONE Stop: 04/03/18 20:46 Last Infusion: 04/03/18 23:48 Dose: 333.333 mls/hr Admin: 04/03/18 21:06 Dose: 333.333 mls/hr Sodium Chloride (Normal Saline 0.9%) 1,000 mls @ 1,000 mls/hr IV BOLUS ONE Stop: 04/03/18 22:02 Last Infusion: 04/03/18 22:13 Dose: 1,000 mls/hr Admin: 04/03/18 21:06 Dose: 1,000 mls/hr Levofloxacin (Levaquin) 750 mg in 150 mls @ 100 mls/hr IV NOW ONE Stop: 04/04/18 00:02 Last Infusion: 04/04/18 07:24 Dose: 0 mls/hr Admin: 04/03/18 23:56 Dose: 100 mls/hr Mirtazapine (Remeron) 15 mg PO 1700 LUPILLO Non-Formulary Medication (Mirabegron [Myrbetriq]) 25 mg PO 1700 LUPILLO Nortriptyline HCl (Pamelor) 25 mg PO BEDTIME LUPILLO Rivaroxaban (Xarelto) 20 mg PO DAILY [facility] Vital Signs - 8 hr 04/04/18 00:35 04/04/18 06:30 Temperature 98.4 F 97.4 F L Pulse Rate 97 H 76 Respiratory Rate 20 22 Blood Pressure 103/64 134/66 Pulse Oximetry 96 96 MDM - Extremity Injury (Lower) Lab Data Attestation: I reviewed the patient's lab results. Result diagrams: 04/03/18 20:44 04/03/18 20:44 Lab Results 04/03/18 04/03/18 04/03/18 Range/Units 20:44 20:44 20:44 WBC 16.5 H (4.5-11.0) X10^3/uL RBC 3.82 L (4.0-5.2) X10^6/uL Hgb 11.3 L (12.0-16.0) g/dL Hct 34.6 L (36-46) % MCV 90.6 (80-100) fL MCH 29.5 (26-34) PG MCHC 32.6 (30-36) % RDW 14.8 (11.6-14.8) % Plt Count 280 (150-400) X10^3/uL Neut % (Auto) 60.2 (50-75) % Lymph % (Auto) 8.3 L (25-40) % [place] % (Auto) 30.9 H (3-14) % Eos % (Auto) 0.4 L (2-4) % Baso % (Auto) 0.2 (0-2) % Neut # (Auto) 9900 H (5194-1207) /uL Sodium 137 (137-145) mmol/L Potassium 4.4 (3.4-5.1) mmol/L Chloride 97 L (98-107) mmol/L Carbon Dioxide 30 (22-32) mmol/L BUN 14 (7-17) mg/dL Creatinine 0.80 (0.52-1.04) mg/dL Estimated GFR > 60.0 (>60) mL/min BUN/Creatinine Ratio 17.5 (6-22) Glucose 298 H D (80-110) mg/dL Lactate (0.7-2.1) mmol/L Calcium 8.8 (8.4-10.2) mg/dL Total Bilirubin 0.5 (0.2-1.3) mg/dL AST 12 L (14-36) IU/L ALT 22 (9-52) IU/L Alkaline Phosphatase 88 (38-126) U/L Total Protein 7.5 (6.3-8.2) g/dL Albumin 3.9 (3.5-5.0) g/dL Globulin 3.6 (1.7-4.1) g/dL Albumin/Globulin Ratio 1.1 (1.0-2.8) Procalcitonin 0.11 (<0.5) ng/mL Urine Color Urine Appearance Urine pH (4.5-8.0) Ur Specific [place] (1.000-1.035) Urine Protein (Negative) Urine Glucose (UA) (Normal) g/dL Urine Ketones (NEGATIVE) Urine Occult Blood (Negative) Urine Nitrate (Negative) Urine Bilirubin (NEGATIVE) Urine Urobilinogen (0.2) E.U./dL Ur Leukocyte Esterase (NEGATIVE) Urine RBC (0-5/HPF) Urine WBC (0-5/HPF) Ur Squamous Epith Cells Urine Bacteria (None) Ur Culture Indicated? Micro UA Comment 04/03/18 04/03/18 04/04/18 Range/Units 20:44 21:00 01:02 WBC (4.5-11.0) X10^3/uL RBC (4.0-5.2) X10^6/uL Hgb (12.0-16.0) g/dL Hct (36-46) % MCV (80-100) fL MCH (26-34) PG MCHC (30-36) % RDW (11.6-14.8) % Plt Count (150-400) X10^3/uL Neut % (Auto) (50-75) % Lymph % (Auto) (25-40) % [place] % (Auto) (3-14) % Eos % (Auto) (2-4) % Baso % (Auto) (0-2) % Neut # (Auto) (3875-4422) /uL Sodium (137-145) mmol/L Potassium (3.4-5.1) mmol/L Chloride (98-107) mmol/L Carbon Dioxide (22-32) mmol/L BUN (7-17) mg/dL Creatinine (0.52-1.04) mg/dL Estimated GFR (>60) mL/min BUN/Creatinine Ratio (6-22) Glucose (80-110) mg/dL Lactate 2.2 H 1.6 (0.7-2.1) mmol/L Calcium (8.4-10.2) mg/dL Total Bilirubin (0.2-1.3) mg/dL AST (14-36) IU/L ALT (9-52) IU/L Alkaline Phosphatase (38-126) U/L Total Protein (6.3-8.2) g/dL Albumin (3.5-5.0) g/dL Globulin (1.7-4.1) g/dL Albumin/Globulin Ratio (1.0-2.8) Procalcitonin (<0.5) ng/mL Urine Color Yellow Urine Appearance Cloudy Urine pH 5.0 (4.5-8.0) Ur Specific [place] 1.025 (1.000-1.035) Urine Protein Trace H (Negative) Urine Glucose (UA) 2+ (Normal) g/dL Urine Ketones Trace H (NEGATIVE) Urine Occult Blood 3+ H (Negative) Urine Nitrate Positive H (Negative) Urine Bilirubin Negative (NEGATIVE) Urine Urobilinogen 1.0 (0.2) E.U./dL Ur Leukocyte Esterase 2+ H (NEGATIVE) Urine RBC 5-10/hpf H (0-5/HPF) Urine WBC 30-100/hpf H (0-5/HPF) Ur Squamous Epith Cells 10-30 /hpf H D Urine Bacteria Many (>30) H (None) Ur Culture Indicated? Specimen cultured Micro UA Comment Not Reportable Imaging Data Lower ext US: Radiologist's impression: [place] [address] Ultrasound Report Signed Patient: Elena Danielson RMR#: [id number] : 2Acct:[id number] Age/Sex: 77 / FDate of Service: 04/03/18 Loc: ED Accession Number: [id number] Procedure: US extremity nonvasc lower lt Ordering Provider: Harmony Layton D.O. PROCEDURE: US EXTREMITY NONVASC LOWER LT INDICATIONS: hematoma, left leg, fever TECHNIQUE: Real-time scanning was performed of the left lower extremity, with image documentation. COMPARISON: [facility], X-ray left knee, 3 views. FINDINGS: Ultrasound was performed in the area of interest. There is a large, avascular complex mass in the medial aspect of the left calf measuring 12.6 x 6 1 x 11.2 cm. IMPRESSION: A large complex mass in the medial aspect of the left calf measuring 12.6 x 6.1 x 11.2 cm. It is compatible with a hematoma. Dictated by: Neil Narvaez M.D. on 04/03/2018 at 21:55 Approved by: Neil Narvaez M.D. on 04/03/2018 at 21:58 Chest x-ray: Radiologist's impression: [address] [address] XRay Report Signed Patient: Elena Danielson RMR#: [id number] : 2Acct:[id number] Age/Sex: 77 / FDate of Service: 04/03/18 Loc: ED Accession Number: [id number] Procedure: XR chest 1V Ordering Provider: Harmony Layton D.O. PROCEDURE: XR CHEST 1V INDICATIONS: fever, pain in leg, large hematoma TECHNIQUE: One view of the chest was acquired. COMPARISON: [facility], CT, PE STUDY (CTA CHEST), 04/12/2016, 11:53. [facility], CR, CHEST 1 VIEW, 04/12/2016, 10:41. [facility], CR, CHEST 1 VIEW, 04/08/2017, 17:10. FINDINGS: Surgical changes and devices: None. Lungs and pleura: No pleural effusions or pneumothorax. Mild left basilar atelectasis. Mediastinum: Mediastinal contours appear normal. Heart size is mildly increased. Bones and chest wall: No suspicious bony lesions. Overlying soft tissues appear unremarkable. IMPRESSION: Mild cardiomegaly. Left basilar atelectasis. Dictated by: Neil Narvaez M.D. on 04/03/2018 at 21:07 Approved by: Neil Narvaez M.D. on 04/03/2018 at 21:11 MDM Narrative Medical decision making narrative: Patient has sepsis with fever, elevated heart rate Um an elevated white blood cell count. Patient has several possible sources including urine from her catheter which is positive for nitrates and leuks. She also has a large hematoma and there is warmth and erythema of the leg and I suspect she may be developing an infection at this location. Patient is having increasing pain and is quite a large hematoma. US shows no vascular flow. Patient follows with Dr. Narvaez at her facility. Patient case discussed with Dr. Louise and accepted for sepsis, hematoma/cellulitis, uti. Discharge Plan Departure Patient Disposition: Admitted As Inpatient Clinical Impression: Sepsis, UTI (urinary tract infection), Hematoma of leg, Cellulitis of left leg Discharge Date/Time: 04/04/18 00:40 Interventions: ED Discharge Assessment Last Done: 04/04/18 00:40 Admit Date/Time: 04/03/18 23:50 Admit Provider: Johanna Roland
[2018-04-03 21:05] LABS: Add Manual Diff / Slide Review NO; Basophils Percent Auto 0.2 % (0-2); Eosinophils Percent Auto 0.4 % (2-4); Hematocrit 34.6 % (36-46); Hemoglobin 11.3 g/dL (12.0-16.0); Lymphocytes Percent Auto 8.3 % (25-40); Mean Corpuscular HGB Conc 32.6 % (30-36); Mean Corpuscular Hemoglobin 29.5 PG (26-34); Mean Corpuscular Volume 90.6 fL (80-100); Monocytes Percent Auto 30.9 % (3-14); Neutrophils Absolute Auto 9900 /uL (3000-5900); Neutrophils Percent Auto 60.2 % (50-75); Platelet Count 280 X10^3/uL (150-400); Red Blood Cell Count 3.82 X10^6/uL (4.0-5.2); Red Cell Distribution Width 14.8 % (11.6-14.8); White Blood Cell Count 16.5 X10^3/uL (4.5-11.0)
[2018-04-03] MEDS: VANCOMYCIN 1,500 MG in SODIUM CHLORIDE 0.9% 500 ML 333.333 ML IV (21:06)
[2018-04-03] MEDS: SODIUM CHLORIDE 0.9% 1,000 ML 1000 ML IV (21:06)
[2018-04-03 21:14] LABS: Lactate (Lactic Acid) 2.2 mmol/L (0.7-2.1)
[2018-04-03 21:14] LABS: Appearance Urine UA CLOUDY; Bilirubin Urine UA NEGATIVE (NEGATIVE); Color Urine UA YELLOW; Glucose Urine UA 2+ g/dL (Normal); Ketones Urine UA TRACE (NEGATIVE); Leukocyte Esterase Urine UA 2+ (NEGATIVE); Nitrite Urine UA POSITIVE (Negative); Occult Blood Urine UA 3+ (Negative); Protein Urine UA TRACE (Negative); Specific Gravity Urine UA 1.025 (1.000-1.035)
[2018-04-03 21:15] LABS: Alanine Aminotransferase 22 IU/L (9-52); Albumin 3.9 g/dL (3.5-5.0); Albumin Globulin Ratio 1.1 (1.0-2.8); Alkaline Phosphatase 88 U/L (38-126); Aspartate Aminotransferase 12 IU/L (14-36); BUN Creatinine Ratio 17.5 (6-22); Bilirubin Total 0.5 mg/dL (0.2-1.3); Blood Urea Nitrogen 14 mg/dL (7-17); Calcium 8.8 mg/dL (8.4-10.2); Carbon Dioxide 30 mmol/L (22-32); Chloride 97 mmol/L (98-107); Estimated Glomerular Filt Rate > 60.0 mL/min (>60); Globulin 3.6 g/dL (1.7-4.1); Glucose 298 mg/dL (80-110); HEMOLYSIS < 15 (0-50); Potassium 4.4 mmol/L (3.4-5.1); Sodium 137 mmol/L (137-145); Total Protein 7.5 g/dL (6.3-8.2)
[2018-04-03 21:25] VITALS: TEMP 38.3
[2018-04-03] MEDS: ACETAMINOPHEN 325 MG TABLET 975 MG PO (21:25)
[2018-04-03 21:33] LABS: RBC Urine 5-10/HPF (0-5/HPF); WBC Urine 30-100/HPF (0-5/HPF)
[2018-04-03 21:34] LABS: Bacteria Urine Many (>30); Squamous Epithelial Cell Urine 10-30 /HPF
[2018-04-03 21:35] LABS: Culture Indicated Urine Specimen Cultured
[2018-04-03 21:37] VITALS: BP 133/90; PULSE 103; RESP 27; O2SAT 95
[2018-04-03 21:44] VITALS: TEMP 37.4
[2018-04-03 21:45] LABS: Procalcitonin 0.11 ng/mL (<0.5)
[2018-04-03] MEDS: HYDROMORPHONE 1 MG INJ IV (22:11)
[2018-04-03 22:41] VITALS: BP 127/63; PULSE 101; RESP 28; O2SAT 100
--- NOTE | 2018-04-03 23:09 | DI.RAD.S_ITS ---
PROCEDURE: XR TIBIA FIBULA RT 2V INDICATIONS: hematoma, fall yesterday left leg TECHNIQUE: 2 views of the tibia and fibula were acquired. COMPARISON: None. FINDINGS: Bones: Patient is status post left total knee arthroplasty and previous Achilles tendon repair. No fractures or dislocations. No suspicious bony lesions. Soft tissues: Large area of hyperdensity involving medial aspect of proximal tibia shaft suggestive of large hematoma. IMPRESSION: Large soft tissue hematoma along medial aspect of proximal tibial shaft. No gross acute fracture or dislocation. Dictated by: Gonzalo Michelle M.D. on 04/04/2018 at 9:22 Approved by: Gonzalo Michelle M.D. on 04/04/2018 at 9:24
--- NOTE | 2018-04-03 23:16 | PC.NURSE ---
PT states Left Calf pain s/p falling out of wheel chair yesterday was seen here in ER yesterday. Pt has hematoma to left calf and states the Tylenol, oxycodone, oxycotin and vistaril received dining room captain has not managed her 8/10 pain. Pt denies numbness or tingling to LLE, LLE is warm with erythema present. PT denies CP, Head or neck pain.
[2018-04-03] MEDS: levoFLOXacin 750 MG/150 ML PIGGYBACK 100 MG IV (23:56)
[2018-04-04] VITALS (10 sets, daily range): BP systolic 103–140; BP diastolic 63–77; PULSE 76–98; RESP 20–24; TEMP 36.3–37.1; O2SAT 91–96; BMI 55.2
[2018-04-04 00:56] LABS: Reflexed Lactate in 2 Hours Y
[2018-04-04 01:20] LABS: Lactate 2HR (Lactic Acid Rflx) 1.6 mmol/L (0.7-2.1)
--- NOTE | 2018-04-04 05:32 | PC.NURSE ---
Admit/NOC note: Pt arrived via stretcher at 0035 from the ED. Amrita sling in place upon arrival and amrita used to transfer pt to bed. Law cath patient with dark yellow urine. Pt was medicated in ED for pain and denied pain when she arrived. Head of be elevated for ease of breathing, ED nurse reported that spouse said pt has a cpap at home that she does not use. Pt desats to mid 80's when sleeping. O2 at 1.5L, NC and sating 92-95% at this time. LLE with hematoma also has several blisters and weeping off and on during the shift. 3-4+edema to sindy feet and ankles. 2-3PA with repositioning in bed. Bruise to RUE noted, coccyx is pink and blanchable, no open area to amaris area noted, Moisture noted in skin folds and pericare provided. Pt had difficulty making needs known, possible issues with word finding and the ED reported that pt had been a poor historian, information on health hx was given by the spouse who did not accompany pt to her room.
--- NOTE | 2018-04-04 08:04 | PM.HP.1 ---
History of Present Illness Date Patient Seen: 04/04/18 Time Patient Seen: 08:05 Chief complaint: Leg Pain Narrative: 77-year-old female who was a resident [facility] facility presents with fever and injury to her leg. She has actually seen in the ER the night before last with a injury to the left calf. She had been riding in her electric scooter and somehow the left calf became wedged between some wall or other object causing acute injury and she was seen in the ER and then released initially for that problem and then last night started having fevers and they brought her back into the ER for evaluation. Currently she is resting comfortably a little more somnolent than normal but was arousable and answered questions give a good history she has been in this pen[facility] facility for a few years basically plan M0 bile after being in the hospital a few years ago with an infection severe pneumonia on a ventilator for a couple of weeks at that time. She has never recovered enough strength to get back on her feet. Patient History Medical History Anemia (Acute) Anemia (Acute) Atherosclerotic heart disease (Acute) Atherosclerotic heart disease of [place] coronary artery without angina pectoris (Acute) Atrial fibrillation (Acute) Chronic kidney disease, stage 3 (Acute) Chronic pain syndrome (Acute) Chronic pain syndrome (Acute) Gastro-esophageal reflux disease without esophagitis (Acute) Hereditary and idiopathic neuropathy, unspecified (Acute) Hyperlipidemia (Acute) Hypertensive chronic kidney disease with stage 1 through stage 4 chronic kidney disease, or unspecified chronic kidney disease (Acute) Hypothyroidism (Acute) Insomnia (Acute) 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 (Acute) 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 (Acute) Major depressive disorder (Acute) Major depressive disorder (Acute) Morbid obesity due to excess calories (Acute) Obstructive sleep apnea (Acute) Obstructive sleep apnea (Acute) Type 2 diabetes mellitus (Acute) Urinary incontinence (Acute) Urinary incontinence (Acute) Venous insufficiency (chronic) (peripheral) (Acute) Venous insufficiency (chronic) (peripheral) (Acute) Wheelchair bound (Acute) Diabetes (Chronic) Gastroesophageal reflux disease (Chronic) Hypertension (Chronic) Hypothyroidism (Chronic) Obesity (Chronic) Surgical History History of bilateral knee replacement (Resolved) Family & Social History Family History: Reviewed 04/04/18 by Jerry Amador MD Social History: household members spouse Prior Living Arrangements Assisted Living Safety & Behavioral: Feels Safe in Current Yes Environment Been Physically Hurt or No Threatened By a Person Suicidal Ideation Description None Tobacco & Substance use: Smoking Status Never smoker alcohol intake never alcohol intake frequency 0-2 drinks per day Substance Use Type does not use Meds Home Medications Medication Instructions Recorded Confirmed Type acetaminophen 650 mg PO Q4HP PRN #0 07/05/16 04/02/18 History atorvastatin 40 mg PO BEDTIME #0 07/05/16 04/02/18 History bisacodyl 10 mg [place] PRN PRN #0 07/05/16 04/02/18 History bupropion HCl [Wellbutrin SR] 100 mg PO BID #0 07/05/16 04/02/18 History diltiazem HCl 240 mg PO QPM #0 07/05/16 04/02/18 History docusate sodium 200 mg PO BID #0 07/05/16 04/02/18 History duloxetine [Cymbalta] 60 mg PO QDAY #0 07/05/16 04/02/18 History furosemide [Lasix] 20 mg PO QDAY #0 07/05/16 04/02/18 History gabapentin 800 mg PO TID #0 07/05/16 04/02/18 History hydroxyzine pamoate [Vistaril] 25 mg PO Q6HP PRN #0 07/05/16 04/02/18 History lisinopril 10 mg PO BID #0 07/05/16 04/02/18 History nitroglycerin [Nitrostat] 0.4 mg SUBLINGUAL PRN PRN #0 07/05/16 04/02/18 History rivaroxaban [Xarelto] 20 mg PO QDAY #0 07/05/16 04/02/18 History aspirin 81 mg PO QDAY #0 04/08/17 04/02/18 History diphenhydramine HCl [Benadryl 25 mg PO Q8HP PRN #0 04/08/17 04/02/18 History Allergy] mirabegron [Myrbetriq] 25 mg PO QPM #0 04/08/17 04/02/18 History ondansetron HCl 4 mg PO Q4HP PRN #0 04/08/17 04/02/18 History pantoprazole 20 mg PO QDAY #90 04/10/17 04/02/18 Rx aripiprazole [Abilify] 2.5 mg PO BEDTIME 12/04/17 04/02/18 History bisacodyl 5 mg PO PRN PRN 12/04/17 04/02/18 History bisacodyl 10 mg PO PRN PRN 12/04/17 04/02/18 History levothyroxine 1 tab PO DAILY 12/04/17 04/02/18 History menthol-zinc td-wdid-catu oil 1 applic TOPICAL TID #0 12/04/17 04/02/18 History [Chamosyn] multivitamin with minerals 1 tab PO DAILY 12/04/17 04/02/18 History nystatin 1 applic TOPICAL PRN PRN 12/04/17 04/02/18 History potassium chloride 10 meq PO DAILY 12/04/17 04/02/18 History furosemide 40 mg PO DAILY PRN 04/02/18 04/02/18 History hydrocortisone 1 applic TOPICAL Q4H PRN 04/02/18 04/02/18 History insulin aspart U-100 [Novolog 1 dose SUBCUT PRN PRN 04/02/18 04/02/18 History U-100 Insulin aspart] insulin glargine [Lantus Solostar 95 units SUBCUT BID 04/02/18 04/02/18 History U-100 Insulin] magnesium hydroxide [Milk of 30 ml PO PRN PRN 04/02/18 04/02/18 History Magnesia] mirtazapine 15 mg PO QPM 04/02/18 04/02/18 History nortriptyline 25 mg PO BEDTIME 04/02/18 04/02/18 History oxycodone 10 mg PO Q4H PRN 04/02/18 04/02/18 History oxycodone [OxyContin] 20 mg PO Q12H 04/02/18 04/02/18 History potassium chloride 10 meq PO PRN PRN 04/02/18 04/02/18 History sodium phosphates [Fleet Enema] 1 ea [place] PRN PRN 04/02/18 04/02/18 History acetaminophen 650 mg PO Q4H PRN 04/03/18 04/03/18 History aripiprazole 2.5 mg PO DAILY 04/03/18 04/03/18 History aspirin [Aspir-Low] 81 mg PO DAILY 04/03/18 04/03/18 History atorvastatin 40 mg PO DAILY 04/03/18 04/03/18 History bupropion HCl 100 mg PO BID 04/03/18 04/03/18 History diltiazem HCl 240 mg PO DAILY 04/03/18 04/03/18 History docusate sodium 200 mg PO BID 04/03/18 04/03/18 History duloxetine 60 mg PO DAILY 04/03/18 04/03/18 History furosemide [Lasix] 20 mg PO DAILY 04/03/18 04/03/18 History gabapentin 800 mg PO TID 04/03/18 04/03/18 History hydroxyzine pamoate [Vistaril] 25 mg PO QID PRN 04/03/18 04/03/18 History levothyroxine 88 mcg PO DAILY 04/03/18 04/03/18 History lisinopril 10 mg PO BID 04/03/18 04/03/18 History menthol-zinc el-mlji-xryv oil 1 applic TOPICAL TID 04/03/18 04/03/18 History [Chamosyn] mirabegron [Myrbetriq] 25 mg PO DAILY 04/03/18 04/03/18 History mirtazapine 15 mg PO DAILY 04/03/18 04/03/18 History multivitamin with iron-mineral 1 tab PO DAILY 04/03/18 04/03/18 History nortriptyline 25 mg PO BEDTIME 04/03/18 04/03/18 History oxycodone 10 mg PO Q4-6H PRN 04/03/18 04/03/18 History oxycodone [OxyContin] 20 mg PO Q12H 04/03/18 04/03/18 History pantoprazole 20 mg PO DAILY 04/03/18 04/03/18 History potassium chloride 10 meq PO DAILY 04/03/18 04/03/18 History rivaroxaban [Xarelto] 20 mg PO DAILY 04/03/18 04/03/18 History Allergies Allergy/AdvReac Type Severity Reaction Status Date / Time adhesive [ADHESIVE] Allergy Mild ALLERGY TO Verified 12/05/17 14:53 TAPE Review of Systems Constitutional Constitutional: Reports fatigue and Reports fever(s) Eyes Eyes: Reports system reviewed; no additional complaints, except as documented ENT Ears, Nose, Mouth, and Throat: Yes system reviewed; no additional complaints, except as documented Cardiovascular Cardiovascular: Reports system reviewed; no additional complaints, except as documented Respiratory Respiratory: Reports system reviewed and no additional complaints, except as documented Gastrointestinal Gastrointestinal: Reports system reviewed and no additional complaints, except as documented Genitourinary Genitourinary: Reports system reviewed and no additional complaints, except as documented Musculoskeletal Musculoskeletal: Reports system reviewed; no additional complaints, except as documented Integumentary/Breasts Skin/Breast: Reports system reviewed and no additional complaints, except as documented Neurologic Neurologic: Reports system reviewed and no additional complaints, except as documented Psychiatric Psychiatric: Reports system reviewed and no additional complaints, except as documented Endocrine Endocrine: Reports system reviewed and no additional complaints, except as documented and Reports fatigue Hematologic/Lymphatic Hematologic/Lymphatic: Reports easy bleeding and Reports easy bruising Allergic/Immunologic Allergic/Immunologic: Reports system reviewed and no additional complaints, except as documented Exam Vital Signs (past 8 hours): - 04/04/18 00:35 04/04/18 06:30 Temperature 98.4 F 97.4 F L Pulse Rate 97 H 76 Respiratory Rate 20 22 Blood Pressure 103/64 134/66 Pulse Oximetry 96 96 Oxygen Delivery Method Nasal Cannula Oxygen Flow Rate 1.5 Narrative Exam Narrative: Morbidly obese female resting comfortably HEENT exam unremarkable Oropharynx clear Neck is supple Heart regular rhythm Lungs Clear to auscultation Abdomen obese nontender bowel sounds present Law catheter in place Extremities left lower calf area very large softball sized hematoma areas of drainage with the skin has broken open some surrounding warmth and erythema Neuro exam no focal neurologic deficits just Theresa in general weakness all over Objective Labs Result Diagrams: 04/03/18 20:44 04/03/18 20:44 Labs: Laboratory Results - last 24 hr 04/03/18 04/03/18 04/03/18 20:44 20:44 20:44 WBC 16.5 H RBC 3.82 L Hgb 11.3 L Hct 34.6 L MCV 90.6 MCH 29.5 MCHC 32.6 RDW 14.8 Plt Count 280 Neut % (Auto) 60.2 Lymph % (Auto) 8.3 L Jackson % (Auto) 30.9 H Eos % (Auto) 0.4 L Baso % (Auto) 0.2 Neut # (Auto) 9900 H Sodium 137 Potassium 4.4 Chloride 97 L Carbon Dioxide 30 BUN 14 Creatinine 0.80 Estimated GFR > 60.0 BUN/Creatinine Ratio 17.5 Glucose 298 H D Lactate Calcium 8.8 Total Bilirubin 0.5 AST 12 L ALT 22 Alkaline Phosphatase 88 Total Protein 7.5 Albumin 3.9 Globulin 3.6 Albumin/Globulin Ratio 1.1 Procalcitonin 0.11 Urine Color Urine Appearance Urine pH Ur Specific [place] Urine Protein Urine Glucose (UA) Urine Ketones Urine Occult Blood Urine Nitrate Urine Bilirubin Urine Urobilinogen Ur Leukocyte Esterase Urine RBC Urine WBC Ur Squamous Epith Cells Urine Bacteria Ur Culture Indicated? Micro UA Comment 04/03/18 04/03/18 04/04/18 20:44 21:00 01:02 WBC RBC Hgb Hct MCV MCH MCHC RDW Plt Count Neut % (Auto) Lymph % (Auto) Jackson % (Auto) Eos % (Auto) Baso % (Auto) Neut # (Auto) Sodium Potassium Chloride Carbon Dioxide BUN Creatinine Estimated GFR BUN/Creatinine Ratio Glucose Lactate 2.2 H 1.6 Calcium Total Bilirubin AST ALT Alkaline Phosphatase Total Protein Albumin Globulin Albumin/Globulin Ratio Procalcitonin Urine Color Yellow Urine Appearance Cloudy Urine pH 5.0 Ur Specific [place] 1.025 Urine Protein Trace H Urine Glucose (UA) 2+ Urine Ketones Trace H Urine Occult Blood 3+ H Urine Nitrate Positive H Urine Bilirubin Negative Urine Urobilinogen 1.0 Ur Leukocyte Esterase 2+ H Urine RBC 5-10/hpf H Urine WBC 30-100/hpf H Ur Squamous Epith Cells 10-30 /hpf H D Urine Bacteria Many (>30) H Ur Culture Indicated? Specimen cultured Micro UA Comment Not Reportable Assessment & Plan Plan: Assessment/Plan Narrative: One. Urinary tract infection white count elevated pyuria bacteria in her urine this could be the source of the systemic infection her lactate level was not elevated at 2.2. Plan to place her on ceftriaxone she does have a Law catheter in place I think this has been a chronic finding for her as far as the Law being in place plan to check with the penitentiary and see when it was last changed if it has been a chronic 2. Complex hematoma from injury left calf area very large hematoma starting to spontaneously open up some skin areas and drain a little bit could be also source of infection surrounding erythema around the areas that are bruised. I will ask orthopedics to look in on this and see if this possibly needs any intervention surgically otherwise of conservative local care I will stop her anticoagulant for now 3. Diabetes type 2 plan to continue Lantus and continue NovoLog 3. Chronic pain syndromes she has been on OxyContin 20 mg twice a day and oxycodone as needed along with gabapentin Cymbalta those will all be continued 5. Chronic atrial fibrillation rate is controlled we plan to hold the Xarelto due to the large hematoma 6. Hypertension on lisinopril diltiazem stable 7. GERD she is on Protonix and will continue 8. Hypothyroid plan to continue Synthroid 9. Hyperlipidemia on atorvastatin plan to continue 10. Morbidly obese obesity plan to continue with calorie restriction 11. Polypharmacy this needs to be addressed as an outpatient we can certainly withhold medications here but when she gets back to the penitent[facility] they need to have a better plan to control this explosion of medications that she has 12. Code status DNR
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
[2018-04-04] MEDS: CEFTRIAXONE 2 GM/50 ML FROZ.PIGGY IV (09:11)
[2018-04-04] MEDS: DULOXETINE 30 MG CAPSULE 60 MG PO (09:12)
[2018-04-04] MEDS: NYSTATIN POWDER 30 GM 1 APPLIC TOP (09:12)
[2018-04-04] MEDS: LEVOTHYROXINE 88 MCG TABLET PO (09:12)
[2018-04-04] MEDS: ASPIRIN EC 81 MG TABLET PO (09:14)
[2018-04-04] MEDS: SODIUM CHLORIDE 0.45% 1,000 ML 50 ML IV (09:15)
[2018-04-04] MEDS: buPROPion SR 100 MG TAB PO ×2 (09:15→21:34)
[2018-04-04] MEDS: DOCUSATE 100 MG CAPSULE 200 MG PO (09:15)
[2018-04-04] MEDS: GABAPENTIN 400 MG CAPSULE 800 MG PO ×3 (09:16→21:34)
[2018-04-04] MEDS: OXYCODONE ER 20 MG TAB PO ×2 (09:16→21:33)
[2018-04-04] MEDS: FUROSEMIDE 20 MG TABLET PO (09:16)
[2018-04-04] MEDS: LISINOPRIL 10 MG TABLET PO ×2 (09:17→21:33)
[2018-04-04] MEDS: POTASSIUM CHLORIDE 10 MEQ TAB PO (09:17)
[2018-04-04] MEDS: PANTOPRAZOLE 20 MG TABLET PO (09:17)
[2018-04-04] MEDS: INSULIN GLARGINE 100 UNIT/ML 3ML PEN 95 UNIT SUBCUT ×2 (09:20→21:54)
--- NOTE | 2018-04-04 12:15 | CM.DPC ---
Clinicals faxed to [facility] per Marichuy
[2018-04-04] MEDS: INSULIN ASPART 100 UNIT/ML INSULN PEN SUBCUT ×2 (12:19→16:54)
[2018-04-04] MEDS: INSULIN ASPART 100 UNIT/ML INSULN PEN 10 UNIT SUBCUT ×2 (12:19→16:54)
[2018-04-04] MEDS: OXYCODONE IR 10 MG TABLET PO ×3 (12:20→23:04)
--- NOTE | 2018-04-04 16:33 | PM.CN ---
History of Present Illness Date Patient Seen: 04/04/18 Time Patient Seen: 16:07 Chief complaint: Leg Pain Reason for consult: left leg hematoma Requesting provider: Jerry Amador Narrative: Ms. Danielson is a 77-year-old female with recent history of fall injury to her left leg. She is a insulin-dependent diabetic who is also on anticoagulant. Patient has been having bruising and swelling to her left leg. Patient has poor mobility due to her morbid obesity multiple areas of degenerative joint disease as well as poor conditioning. Patient was admitted through the emergency room under medical service. Orthopedic service was consulted. [facility] Medical History Anemia (Acute) Anemia (Acute) Atherosclerotic heart disease (Acute) Atherosclerotic heart disease of [place] coronary artery without angina pectoris (Acute) Atrial fibrillation (Acute) Chronic kidney disease, stage 3 (Acute) Chronic pain syndrome (Acute) Chronic pain syndrome (Acute) Gastro-esophageal reflux disease without esophagitis (Acute) Hereditary and idiopathic neuropathy, unspecified (Acute) Hyperlipidemia (Acute) Hypertensive chronic kidney disease with stage 1 through stage 4 chronic kidney disease, or unspecified chronic kidney disease (Acute) Hypothyroidism (Acute) Insomnia (Acute) 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 (Acute) Major depressive disorder (Acute) Major depressive disorder (Acute) Morbid obesity due to excess calories (Acute) Obstructive sleep apnea (Acute) Obstructive sleep apnea (Acute) Type 2 diabetes mellitus (Acute) Urinary incontinence (Acute) Urinary incontinence (Acute) Venous insufficiency (chronic) (peripheral) (Acute) Venous insufficiency (chronic) (peripheral) (Acute) Wheelchair bound (Acute) Diabetes (Chronic) Gastroesophageal reflux disease (Chronic) Hypertension (Chronic) Hypothyroidism (Chronic) Obesity (Chronic) Surgical History History of bilateral knee replacement (Resolved) Social History household members: spouse Smoking Status: Never smoker alcohol intake: never Meds Home Medications Medication Instructions Recorded Confirmed Type bisacodyl 10 mg SD PRN PRN #0 07/05/16 04/02/18 History hydroxyzine pamoate [Vistaril] 25 mg PO Q6HP PRN #0 07/05/16 04/02/18 History nitroglycerin [Nitrostat] 0.4 mg SUBLINGUAL PRN PRN #0 07/05/16 04/02/18 History diphenhydramine HCl [Benadryl 25 mg PO Q8HP PRN #0 04/08/17 04/02/18 History Allergy] mirabegron [Myrbetriq] 25 mg PO QPM #0 04/08/17 04/02/18 History ondansetron HCl 4 mg PO Q4HP PRN #0 04/08/17 04/02/18 History bisacodyl 5 mg PO PRN PRN 12/04/17 04/02/18 History bisacodyl 10 mg PO PRN PRN 12/04/17 04/02/18 History nystatin 1 applic TOPICAL PRN PRN 12/04/17 04/02/18 History furosemide 40 mg PO DAILY PRN 04/02/18 04/02/18 History hydrocortisone 1 applic TOPICAL Q4H PRN 04/02/18 04/02/18 History insulin aspart U-100 [Novolog 1 dose SUBCUT PRN PRN 04/02/18 04/02/18 History U-100 Insulin aspart] insulin glargine [Lantus Solostar 95 units SUBCUT BID 04/02/18 04/02/18 History U-100 Insulin] magnesium hydroxide [Milk of 30 ml PO PRN PRN 04/02/18 04/02/18 History Magnesia] potassium chloride 10 meq PO PRN PRN 04/02/18 04/02/18 History sodium phosphates [Fleet Enema] 1 ea SD PRN PRN 04/02/18 04/02/18 History acetaminophen 650 mg PO Q4H PRN 04/03/18 04/03/18 History aripiprazole 2.5 mg PO DAILY 04/03/18 04/03/18 History aspirin [Aspir-Low] 81 mg PO DAILY 04/03/18 04/03/18 History atorvastatin 40 mg PO DAILY 04/03/18 04/03/18 History bupropion HCl 100 mg PO BID 04/03/18 04/03/18 History diltiazem HCl 240 mg PO DAILY 04/03/18 04/03/18 History docusate sodium 200 mg PO BID 04/03/18 04/03/18 History duloxetine 60 mg PO DAILY 04/03/18 04/03/18 History furosemide [Lasix] 20 mg PO DAILY 04/03/18 04/03/18 History gabapentin 800 mg PO TID 04/03/18 04/03/18 History hydroxyzine pamoate [Vistaril] 25 mg PO QID PRN 04/03/18 04/03/18 History levothyroxine 88 mcg PO DAILY 04/03/18 04/03/18 History lisinopril 10 mg PO BID 04/03/18 04/03/18 History menthol-zinc yp-mrfw-hbvg oil 1 applic TOPICAL TID 04/03/18 04/03/18 History [Chamosyn] mirabegron [Myrbetriq] 25 mg PO DAILY 04/03/18 04/03/18 History mirtazapine 15 mg PO DAILY 04/03/18 04/03/18 History multivitamin with iron-mineral 1 tab PO DAILY 04/03/18 04/03/18 History nortriptyline 25 mg PO BEDTIME 04/03/18 04/03/18 History oxycodone 10 mg PO Q4-6H PRN 04/03/18 04/03/18 History oxycodone [OxyContin] 20 mg PO Q12H 04/03/18 04/03/18 History pantoprazole 20 mg PO DAILY 04/03/18 04/03/18 History potassium chloride 10 meq PO DAILY 04/03/18 04/03/18 History rivaroxaban [Xarelto] 20 mg PO DAILY 04/03/18 04/03/18 History Allergies Allergy/AdvReac Type Severity Reaction Status Date / Time adhesive [ADHESIVE] Allergy Mild ALLERGY TO Verified 12/05/17 14:53 TAPE Review of Systems Review of Systems All systems reviewed & are unremarkable except as noted in HPI and below Exam Vital Signs (past 8 hours): - 04/04/18 09:17 04/04/18 09:30 04/04/18 11:52 Temperature 98.4 F Pulse Rate 78 Respiratory Rate 20 Blood Pressure 134/66 140/68 Pulse Oximetry 94 92 04/04/18 15:00 Temperature Pulse Rate Respiratory Rate Blood Pressure Pulse Oximetry 92 Oxygen Delivery Method Room Air Oxygen Flow Rate 0 Extrem Other: LLE with large subcutaneous hematoma on the medial aspect below the knee. There are skin blisters filled with clear fluid in the area of the hematoma. She has no s/s of DVT, no calf tenderness. She is neurovascular intact to her LLE on exam. She has well perfused LLE with normal motor function and normal sensation. Objective Labs Result Diagrams: 04/03/18 20:44 04/03/18 20:44 Labs: Laboratory Results - last 24 hr 04/03/18 04/03/18 04/03/18 20:44 20:44 20:44 WBC 16.5 H RBC 3.82 L Hgb 11.3 L Hct 34.6 L MCV 90.6 MCH 29.5 MCHC 32.6 RDW 14.8 Plt Count 280 Neut % (Auto) 60.2 Lymph % (Auto) 8.3 L [place] % (Auto) 30.9 H Eos % (Auto) 0.4 L Baso % (Auto) 0.2 Neut # (Auto) 9900 H Sodium 137 Potassium 4.4 Chloride 97 L Carbon Dioxide 30 BUN 14 Creatinine 0.80 Estimated GFR > 60.0 BUN/Creatinine Ratio 17.5 Glucose 298 H D Lactate Calcium 8.8 Total Bilirubin 0.5 AST 12 L ALT 22 Alkaline Phosphatase 88 Total Protein 7.5 Albumin 3.9 Globulin 3.6 Albumin/Globulin Ratio 1.1 Procalcitonin 0.11 Urine Color Urine Appearance Urine pH Ur Specific [place] Urine Protein Urine Glucose (UA) Urine Ketones Urine Occult Blood Urine Nitrate Urine Bilirubin Urine Urobilinogen Ur Leukocyte Esterase Urine RBC Urine WBC Ur Squamous Epith Cells Urine Bacteria Ur Culture Indicated? Micro UA Comment 04/03/18 04/03/18 04/04/18 20:44 21:00 01:02 WBC RBC Hgb Hct MCV MCH MCHC RDW Plt Count Neut % (Auto) Lymph % (Auto) [place] % (Auto) Eos % (Auto) Baso % (Auto) Neut # (Auto) Sodium Potassium Chloride Carbon Dioxide BUN Creatinine Estimated GFR BUN/Creatinine Ratio Glucose Lactate 2.2 H 1.6 Calcium Total Bilirubin AST ALT Alkaline Phosphatase Total Protein Albumin Globulin Albumin/Globulin Ratio Procalcitonin Urine Color Yellow Urine Appearance Cloudy Urine pH 5.0 Ur Specific [place] 1.025 Urine Protein Trace H Urine Glucose (UA) 2+ Urine Ketones Trace H Urine Occult Blood 3+ H Urine Nitrate Positive H Urine Bilirubin Negative Urine Urobilinogen 1.0 Ur Leukocyte Esterase 2+ H Urine RBC 5-10/hpf H Urine WBC 30-100/hpf H Ur Squamous Epith Cells 10-30 /hpf H D Urine Bacteria Many (>30) H Ur Culture Indicated? Specimen cultured Micro UA Comment Not Reportable Assessment & Plan Plan: Assessment/Plan Narrative: Ms. Danielson is a 77 yo F with left leg hematoma after a fall due to her anti-coagulation. Her skin is intact. There is no signs of infection. She is neurovascularly intact on exam. She has poor mobility prior to her recent injury that resulted in the hematoma due to her obesity and poor condition. She does not need surgical treatment for her hematoma. She can progress with PT mobility training as tolerated. She can weight bear as tolerated to her LLE. Time Spent With Patient Time with patient: 25 - 35 minutes
[2018-04-04] MEDS: ACETAMINOPHEN 325 MG TABLET 650 MG PO (16:35)
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
[2018-04-04] MEDS: dilTIAZem CD 240 MG CAP PO (17:00)
--- NOTE | 2018-04-04 17:18 | CM.DANOTE ---
Discharge Planning/Care Management CM Discharge Assessment Start: 04/04/18 17:12 Freq: Status: Active Protocol: Document 04/04/18 17:12 ITV (Rec: 04/04/18 17:18 [email or web address] [email or web address]) Discharge Planning Assessment Advance Directives? Yes: POLST Advance Directives on File Yes History Provided By Medical Record Prior Living Arrangements Assisted Living Facility Name Admitted From: [facility] Willing to Return to Facility? Yes Comment uses a bariatric motorized w/c . Current wt: 363 lbs Comment Discussed above with Roma/ YEISON RAL If pt needs snf, consider [facility]/sister facility Comment pending Review Status In Process Next Review Type Continued Stay Review
--- NOTE | 2018-04-04 17:18 | CM.DANOTE ---
Discharge Planning/Care Management DCP: case received, EMR reviewed and received a call from Roma/YEISON at [facility] saying that pt is a resident of their facility. Pt is a 77 year old female who admitted close to midnight 04/03 to care of hospitalist team. Consulting: ortho: Dr. Mccall. Of note: pt carries dx of morbid obesity: 360 lbs on admission. Full d/x and tx plan are in process. If pt needs snf stay at d/c before return to her home consider sister facility/[facility]. She is well poised for this option as is admitted under INPT status and Payer: Medicare and [employer]. P : DCP team will follow as POC unfolds to meet with pt and go over issues and options. CM Discharge Assessment Start: 04/04/18 17:12 Freq: Status: Active Protocol: Document 04/04/18 17:12 ITV (Rec: 04/04/18 17:18 ITV [id number]) Discharge Planning Assessment Advance Directives? Yes: POLST Advance Directives on File Yes History Provided By Medical Record Prior Living Arrangements Assisted Living Facility Name Admitted From: [facility] Willing to Return to Facility? Yes Comment uses a bariatric motorized w/c . Current wt: 363 lbs Comment Discussed above with Roma/ YEISON RAL If pt needs snf, consider [facility] facility Comment pending Review Status In Process Next Review Type Continued Stay Review
[2018-04-04] MEDS: ATORVASTATIN 20 MG TABLET 40 MG PO (21:34)
[2018-04-04] MEDS: ARIPiprazole 10 MG TABLET 2.5 MG PO (21:34)
[2018-04-05] VITALS (16 sets, daily range): BP systolic 105–149; BP diastolic 51–71; PULSE 70–88; RESP 14–24; TEMP 36.7–37.6; O2SAT 89–100
[2018-04-05] MEDS: ACETAMINOPHEN 325 MG TABLET 650 MG PO (00:27)
[2018-04-05] MEDS: LEVOTHYROXINE 88 MCG TABLET PO (06:01)
[2018-04-05 06:10] LABS: Hematocrit 28.1 % (36-46); Hemoglobin 9.1 g/dL (12.0-16.0); Mean Corpuscular HGB Conc 32.5 % (30-36); Mean Corpuscular Hemoglobin 29.7 PG (26-34); Mean Corpuscular Volume 91.2 fL (80-100); Platelet Count 230 X10^3/uL (150-400); Red Blood Cell Count 3.08 X10^6/uL (4.0-5.2); Red Cell Distribution Width 14.9 % (11.6-14.8); White Blood Cell Count 20.8 X10^3/uL (4.5-11.0)
[2018-04-05 06:12] LABS: Add Manual Diff / Slide Review YES
[2018-04-05 06:16] LABS: Alanine Aminotransferase 19 IU/L (9-52); Albumin 3.4 g/dL (3.5-5.0); Albumin Globulin Ratio 1.1 (1.0-2.8); Alkaline Phosphatase 68 U/L (38-126); Aspartate Aminotransferase 18 IU/L (14-36); BUN Creatinine Ratio 17.5 (6-22); Bilirubin Total 0.6 mg/dL (0.2-1.3); Blood Urea Nitrogen 28 mg/dL (7-17); Calcium 8.4 mg/dL (8.4-10.2); Carbon Dioxide 30 mmol/L (22-32); Chloride 98 mmol/L (98-107); Estimated Glomerular Filt Rate 31.3 mL/min (>60); Globulin 3.2 g/dL (1.7-4.1); Glucose 121 mg/dL (80-110); HEMOLYSIS < 15 (0-50); Potassium 4.8 mmol/L (3.4-5.1); Sodium 136 mmol/L (137-145); Total Protein 6.6 g/dL (6.3-8.2)
[2018-04-05 06:43] LABS: Hypochromasia 1+; Polychromasia 1+
[2018-04-05] MEDS: OXYCODONE IR 10 MG TABLET PO ×3 (10:21→19:06)
[2018-04-05] MEDS: ASPIRIN EC 81 MG TABLET PO (10:22)
[2018-04-05] MEDS: DULOXETINE 30 MG CAPSULE 60 MG PO (10:22)
[2018-04-05] MEDS: OXYCODONE ER 20 MG TAB PO ×2 (10:22→20:46)
[2018-04-05] MEDS: buPROPion SR 100 MG TAB PO ×2 (10:23→20:42)
[2018-04-05] MEDS: FUROSEMIDE 20 MG TABLET PO (10:23)
[2018-04-05] MEDS: GABAPENTIN 400 MG CAPSULE 800 MG PO ×3 (10:23→20:42)
[2018-04-05] MEDS: DOCUSATE 100 MG CAPSULE 200 MG PO ×2 (10:23→20:43)
[2018-04-05] MEDS: POTASSIUM CHLORIDE 10 MEQ TAB PO (10:24)
[2018-04-05] MEDS: LISINOPRIL 10 MG TABLET PO ×2 (10:24→20:43)
[2018-04-05] MEDS: INSULIN GLARGINE 100 UNIT/ML 3ML PEN 95 UNIT SUBCUT ×2 (10:24→20:55)
[2018-04-05] MEDS: PANTOPRAZOLE 20 MG TABLET PO (10:24)
[2018-04-05] MEDS: INSULIN ASPART 100 UNIT/ML INSULN PEN 10 UNIT SUBCUT ×3 (10:26→17:09)
--- NOTE | 2018-04-05 11:19 | PM.PN.1 ---
Subjective Date Patient Seen: 04/05/18 Time Patient Seen: 11:19 Interval history: She is complaining of pain all over Exam Vital Signs (past 8 hours): - 04/05/18 04:35 04/05/18 07:57 04/05/18 07:58 Temperature 99.0 F Pulse Rate 70 Respiratory Rate 20 Blood Pressure 105/51 L Pulse Oximetry 95 89 L 92 04/05/18 08:18 04/05/18 08:26 Temperature 98.0 F Pulse Rate 73 Respiratory Rate 20 Blood Pressure 131/71 Pulse Oximetry 93 95 Oxygen Delivery Method Nasal Cannula Oxygen Flow Rate 1 Narrative Exam Narrative: She is awake alert a conversant speech normal Oropharynx clear Lungs clear Heart irregular rhythm Abdomen obese Lower extremities left lower extremity calf area with a large hematoma and blister over the hematoma now is disrupted and starting to drain. Neuro exam awake alert speech normal generalized weakness noted Objective Labs Result Diagrams: 04/05/18 05:50 04/05/18 05:50 Labs: Laboratory Results - last 24 hr 04/05/18 04/05/18 05:50 05:50 WBC 20.8 H RBC 3.08 L Hgb 9.1 L Hct 28.1 L MCV 91.2 MCH 29.7 MCHC 32.5 RDW 14.9 H Plt Count 230 Neut % (Auto) Not Reportable Lymph % (Auto) Not Reportable [place] % (Auto) Not Reportable Eos % (Auto) Not Reportable Baso % (Auto) Not Reportable Seg Neutrophils % 53.0 Band Neutrophils % 4.0 Lymphocytes % (Manual) 13.0 L Monocytes % (Manual) 30.0 H RBC Morphology See below Polychromasia 1+ H Hypochromasia 1+ H Sodium 136 L Potassium 4.8 Chloride 98 Carbon Dioxide 30 BUN 28 H Creatinine 1.60 H Estimated GFR 31.3 L BUN/Creatinine Ratio 17.5 Glucose 121 H D Calcium 8.4 Total Bilirubin 0.6 AST 18 ALT 19 Alkaline Phosphatase 68 Total Protein 6.6 Albumin 3.4 L Globulin 3.2 Albumin/Globulin Ratio 1.1 Assessment & Plan Plan: Assessment/Plan Narrative: One. Urinary tract infection white count elevated pyuria bacteria in her urine this could be the source of the systemic infection her lactate level was not elevated at 2.2. This is most likely related to the indwelling Law catheter. She is growing E coli out of the urine and is sensitive to the ceftriaxone plan to continue. Her white count is elevated higher today but fevers are down. 2. Complex hematoma from injury left calf area very large hematoma starting to spontaneously open up some skin areas and drain a little bit could be also source of infection surrounding erythema around the areas that are bruised. Dr. Mccall from orthopedics consulted on April 04 he did not feel there is any surgical intervention that was needed. We will culture the drainage today there does not look like there is much cellulitis around the hematoma today. 3. Diabetes type 2 plan to continue Lantus and continue NovoLog 3. Chronic pain syndromes she has been on OxyContin 20 mg twice a day and oxycodone as needed along with gabapentin Cymbalta those will all be continued 5. Chronic atrial fibrillation rate is controlled we plan to hold the Xarelto due to the large hematoma 6. Hypertension on lisinopril diltiazem stable 7. GERD she is on Protonix and will continue 8. Hypothyroid plan to continue Synthroid 9. Hyperlipidemia on atorvastatin plan to continue 10. Morbidly obese obesity plan to continue with calorie restriction 11. Polypharmacy this needs to be addressed as an outpatient we can certainly withhold medications here but when she gets back to the detention they need to have a better plan to control this explosion of medications that she has 12. Code status DNR
[2018-04-05] MEDS: CEFTRIAXONE 2 GM/50 ML FROZ.PIGGY IV (11:40)
[2018-04-05] MEDS: INSULIN ASPART 100 UNIT/ML INSULN PEN SUBCUT (13:51)
--- NOTE | 2018-04-05 14:43 | CM.DPC ---
DCP Cont: Met with patient. Awake, but drowsy. , Red, also came into room. Patient lives at [facility]. Was admitted 04/03. Has UTI, hematoma post fall. Discussed snf options with patient and . stated that [facility] would be ok because it is close, as long as its covered by Medicare. DCP to continue to follow closely. Will go ahead and fax clinicals, since its confirmed that patient is inpatient status as of 04/03. Justine Issa RN/Qa Test Lead
[2018-04-05] MEDS: dilTIAZem CD 240 MG CAP PO (17:08)
--- NOTE | 2018-04-05 19:51 | PC.NURSE ---
shift overview VSS. Pt oriented to self and setting. Has been drowsy and mostly resting off and on through shift. Easily arouses. Pain (FLACC 6) noted and reported with positional change. Pt medicated with 10mg oxycodone (reference EMAR) prior to dressing change at 1940. Large open blister to left inner calf has mostly drained with sero-sang fluid noted to exu-dry dressing removed. 2 separate blister pockets remain located just proximal and anterior to large blister yellow in coloration. pt not wanting dinner tray as was just finishing lunch at 15:30. Glucerna drink offered and accepted. Pt with generalized edema. wedding band removed from left ring finger and placed on counter in screw top container. O2 sats maintained mid to upper 90's when awake but desats when sleeping. currently on 2L with sats upper 90s. Max assist with positional change and pillows used to alleviate pressure areas.
[2018-04-05] MEDS: ARIPiprazole 10 MG TABLET 2.5 MG PO (20:43)
[2018-04-05] MEDS: SENNOSIDES 8.6 MG TABLET 17.2 MG PO (20:43)
[2018-04-05] MEDS: ATORVASTATIN 20 MG TABLET 40 MG PO (20:43)
[2018-04-05] MEDS: NYSTATIN POWDER 30 GM 1 APPLIC TOP (20:50)
[2018-04-06] VITALS (11 sets, daily range): BP systolic 97–138; BP diastolic 43–63; PULSE 74–85; RESP 18–21; TEMP 36.8–37.2; O2SAT 92–98
[2018-04-06] MEDS: LEVOTHYROXINE 88 MCG TABLET PO (05:56)
[2018-04-06] MEDS: CEFTRIAXONE 2 GM/50 ML FROZ.PIGGY IV (08:32)
[2018-04-06] MEDS: OXYCODONE ER 20 MG TAB PO ×2 (08:33→20:40)
[2018-04-06] MEDS: buPROPion SR 100 MG TAB PO ×2 (08:34→20:42)
[2018-04-06] MEDS: ASPIRIN EC 81 MG TABLET PO (08:34)
[2018-04-06] MEDS: DULOXETINE 30 MG CAPSULE 60 MG PO (08:34)
[2018-04-06] MEDS: DOCUSATE 100 MG CAPSULE 200 MG PO ×2 (08:35→20:42)
[2018-04-06] MEDS: PANTOPRAZOLE 20 MG TABLET PO (08:35)
[2018-04-06] MEDS: FUROSEMIDE 20 MG TABLET PO (08:35)
[2018-04-06] MEDS: LISINOPRIL 10 MG TABLET PO (08:35)
[2018-04-06] MEDS: GABAPENTIN 400 MG CAPSULE 800 MG PO ×3 (08:35→20:41)
[2018-04-06] MEDS: POTASSIUM CHLORIDE 10 MEQ TAB PO (08:36)
[2018-04-06] MEDS: INSULIN ASPART 100 UNIT/ML INSULN PEN 10 UNIT SUBCUT ×3 (08:53→16:46)
[2018-04-06] MEDS: INSULIN GLARGINE 100 UNIT/ML 3ML PEN 95 UNIT SUBCUT (08:54)
[2018-04-06 11:21] LABS: Add Manual Diff / Slide Review NO; Basophils Percent Auto 0.3 % (0-2); Eosinophils Percent Auto 0.4 % (2-4); Hematocrit 28.1 % (36-46); Hemoglobin 9.1 g/dL (12.0-16.0); Lymphocytes Percent Auto 7.4 % (25-40); Mean Corpuscular HGB Conc 32.3 % (30-36); Mean Corpuscular Hemoglobin 29.4 PG (26-34); Monocytes Percent Auto 29.5 % (3-14); Neutrophils Absolute Auto 10300 /uL (3000-5900); Neutrophils Percent Auto 62.4 % (50-75); Platelet Count 241 X10^3/uL (150-400); Red Blood Cell Count 3.09 X10^6/uL (4.0-5.2); Red Cell Distribution Width 15.1 % (11.6-14.8); White Blood Cell Count 16.5 X10^3/uL (4.5-11.0)
[2018-04-06 11:27] LABS: BUN Creatinine Ratio 20.6 (6-22); Blood Urea Nitrogen 33 mg/dL (7-17); Calcium 8.7 mg/dL (8.4-10.2); Carbon Dioxide 31 mmol/L (22-32); Chloride 99 mmol/L (98-107); Estimated Glomerular Filt Rate 31.3 mL/min (>60); Glucose 150 mg/dL (80-110); HEMOLYSIS < 15 (0-50); Potassium 5.2 mmol/L (3.4-5.1); Sodium 140 mmol/L (137-145)
[2018-04-06 12:00] LABS: B Type Natriuretic Peptide 92.9 (<100)
[2018-04-06] MEDS: INSULIN ASPART 100 UNIT/ML INSULN PEN SUBCUT (12:08)
[2018-04-06] MEDS: SODIUM CHLORIDE 0.9% 1,000 ML 100 ML IV (14:12)
[2018-04-06] MEDS: dilTIAZem CD 240 MG CAP PO (16:46)
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
[2018-04-06] MEDS: ATORVASTATIN 20 MG TABLET 40 MG PO (20:41)
[2018-04-06] MEDS: INSULIN GLARGINE 100 UNIT/ML 3ML PEN 50 UNIT SUBCUT (20:41)
[2018-04-06] MEDS: SENNOSIDES 8.6 MG TABLET 17.2 MG PO (20:42)
[2018-04-06] MEDS: ARIPiprazole 10 MG TABLET 2.5 MG PO (20:42)
[2018-04-06] MEDS: OXYCODONE IR 10 MG TABLET PO (22:04)
[2018-04-07] VITALS (12 sets, daily range): BP systolic 111–144; BP diastolic 49–91; PULSE 69–90; RESP 18–22; TEMP 36.3–37.4; O2SAT 87–97
[2018-04-07] MEDS: SODIUM CHLORIDE 0.9% 1,000 ML 100 ML IV (04:14)
--- NOTE | 2018-04-07 05:15 | PC.NURSE ---
Pt A and O x 4, VSS, afebrile. Wound on L leg draining moderate amount of brown thin drainage. Dressing changed x 2 this shift. Pt is unable to lift and hold her leg up. She denies pain and nausea. S1, S2, LS diminished. Voiding clear yellow qs in Law catheter. + BT.
[2018-04-07] MEDS: LEVOTHYROXINE 88 MCG TABLET PO (06:03)
[2018-04-07 06:12] LABS: Hematocrit 27.2 % (36-46); Hemoglobin 8.8 g/dL (12.0-16.0); Mean Corpuscular HGB Conc 32.2 % (30-36); Mean Corpuscular Hemoglobin 29.3 PG (26-34); Platelet Count 232 X10^3/uL (150-400); Red Blood Cell Count 2.99 X10^6/uL (4.0-5.2); White Blood Cell Count 15.1 X10^3/uL (4.5-11.0)
[2018-04-07 06:16] LABS: BUN Creatinine Ratio 23.8 (6-22); Blood Urea Nitrogen 31 mg/dL (7-17); Calcium 8.5 mg/dL (8.4-10.2); Carbon Dioxide 28 mmol/L (22-32); Chloride 101 mmol/L (98-107); Estimated Glomerular Filt Rate 39.8 mL/min (>60); Glucose 83 mg/dL (80-110); HEMOLYSIS < 15 (0-50); Potassium 4.5 mmol/L (3.4-5.1); Sodium 139 mmol/L (137-145)
[2018-04-07 06:18] LABS: Add Manual Diff / Slide Review YES
[2018-04-07 07:42] LABS: Neutrophils Absolute Manual 8154 /uL (3000-5900); Total Cells Counted 100
[2018-04-07 07:43] LABS: Polychromasia 1+
[2018-04-07] MEDS: buPROPion SR 100 MG TAB PO ×2 (07:58→20:36)
[2018-04-07] MEDS: DOCUSATE 100 MG CAPSULE 200 MG PO ×2 (07:58→20:36)
[2018-04-07] MEDS: GABAPENTIN 400 MG CAPSULE 800 MG PO ×3 (07:58→20:36)
[2018-04-07] MEDS: PANTOPRAZOLE 20 MG TABLET PO (07:58)
[2018-04-07] MEDS: INSULIN ASPART 100 UNIT/ML INSULN PEN 10 UNIT SUBCUT ×3 (07:59→17:05)
[2018-04-07] MEDS: ASPIRIN EC 81 MG TABLET PO (07:59)
[2018-04-07] MEDS: DULOXETINE 30 MG CAPSULE 60 MG PO (07:59)
[2018-04-07] MEDS: INSULIN GLARGINE 100 UNIT/ML 3ML PEN 50 UNIT SUBCUT ×2 (08:00→20:43)
[2018-04-07] MEDS: OXYCODONE ER 20 MG TAB PO ×2 (08:02→20:33)
[2018-04-07] MEDS: CEFTRIAXONE 2 GM/50 ML FROZ.PIGGY IV (08:04)
[2018-04-07] MEDS: ENOXAPARIN 40 MG/0.4 ML SYRINGE SUBCUT (09:44)
[2018-04-07] MEDS: OXYCODONE IR 10 MG TABLET PO (09:44)
--- NOTE | 2018-04-07 10:15 | PT.IIE ---
Addendum entered and electronically signed by Ivanna Velasco, PT 04/07/18 15:21: I certify I directly supervised and guided this session. Ashish Velasco DPT Original Note: Current Diagnoses Non-pressure chronic ulcer of unspecified part of left lower leg with unspecified severity (04/03/18) Acute kidney failure, unspecified (04/03/18) Urinary tract infection, site not specified (04/03/18) Contusion of unspecified lower leg, initial encounter (04/03/18) Surgical History (Last Reviewed 04/04/18 @ 16:36 by Maggie Mccall MD) History of bilateral knee replacement (Resolved) Medical History (Last Reviewed 04/04/18 @ 16:36 by Maggie Mccall MD) Anemia (Acute) Anemia (Acute) Atherosclerotic heart disease (Acute) Atherosclerotic heart disease of [place] coronary artery without angina pectoris (Acute) Atrial fibrillation (Acute) Chronic kidney disease, stage 3 (Acute) Chronic pain syndrome (Acute) Chronic pain syndrome (Acute) Gastro-esophageal reflux disease without esophagitis (Acute) Hereditary and idiopathic neuropathy, unspecified (Acute) Hyperlipidemia (Acute) Hypertensive chronic kidney disease with stage 1 through stage 4 chronic kidney disease, or unspecified chronic kidney disease (Acute) Hypothyroidism (Acute) Insomnia (Acute) Insomnia (Acute) 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 (Acute) Major depressive disorder (Acute) Major depressive disorder (Acute) Morbid obesity due to excess calories (Acute) Obstructive sleep apnea (Acute) Obstructive sleep apnea (Acute) Type 2 diabetes mellitus (Acute) Urinary incontinence (Acute) Urinary incontinence (Acute) Venous insufficiency (chronic) (peripheral) (Acute) Venous insufficiency (chronic) (peripheral) (Acute) Wheelchair bound (Acute) Diabetes (Chronic) Gastroesophageal reflux disease (Chronic) Hypertension (Chronic) Hypothyroidism (Chronic) Obesity (Chronic) Physical Therapy Inpatient Evaluation/Re-Eval M1 PT/OT-IP Prior Functional Status Start: 04/07/18 12:04 Freq: NEEDED Status: Active Protocol: Document 04/07/18 10:15 (Rec: 04/07/18 12:31 [email or web address]) Medical Review Prior Functional Status Medical History Reviewed Yes Communication No deficits noted. Mobility and Gait Pt dependent for all transfers . Uses sit <> stand lift and assist of 1 for all transfers including commode, shower (she sits on commode to shower) and w/c. She uses a w/c for all mobility. Once in the shower or on the toilet, she states being able to perform self care independently. Social History Household Members other Living Arrangements Assisted Living Number of Floors (Floors) One Floor Home Environment High Toilet Walk in Shower Home Equipment Manual Wheelchair Bedside Commode Shower Seat without Backrest Mechanical Lift Hospital Bed Grab Bars Near Toilet Grab Bars In Shower Additional Social History Comment Pt currently living at [facility]. She has a bariatric hospital bed there and mechanical sit-to- stand machine for transfers as well as bariatric w/c. Her and daughter live nearby. M2 PT-IP Current Condition Start: 04/07/18 12:04 Freq: NEEDED Status: Active Protocol: Document 04/07/18 10:15 (Rec: 04/07/18 12:31 [email or web address]) Physical Therapy Current Condition Current Condition Evaluation Date 04/07/18 Treatment Diagnosis Renal injury; L calf hematoma; impaired mobility. Onset Date 04/03/18 M3 PT-IP Subjective Start: 04/07/18 12:04 Freq: NEEDED Status: Active Protocol: Document 04/07/18 10:15 (Rec: 04/07/18 12:31 [email or web address]) Subjective Physical Therapy Visit Type Type Initial Evaluation Visit Start Time 10:15 Visit Stop Time 11:23 Total Visit Minutes 48 Notes Split time; pt requested privacy on commode Number of RESEARCH PROGRAM MANAGER Visits 0 Physical Therapy Visit Comments Patient Comments Pt agreeable to mobilize with PT. Patient Goals Pt wishes she could just get better. Therapy Pain Assessment Pain When Pain Assessed During Mobility Pain Present Pain Present Pain Reported Location Back Scale Used Not rated. Pain Management Techniques Modification of Treatment Re-positioning Timing of Activity with Medications M4 PT-IP Mobility and Gait Start: 04/07/18 12:04 Freq: NEEDED Status: Active Protocol: Document 04/07/18 10:15 (Rec: 04/07/18 12:31 [email or web address]) PT-Bed Mobility Assessment Rolling Type of Rolling Log Rolling Roll to Right Roll to Left Level of Assist Maximal Assistance Scooting Scooting to Edge of Bed Dependent Scooting Up and Down in Bed Dependent PT-Transfer Assessment Equipment Transfer Assistive Device Mechanical Lift Orthotic/Prosthetic Devices or Brace: No Transfers Transfer Destination Bedside Commode Transfer Technique Mechanical Lift Comments Mobility Comments Pt required maxA x3 for log rolling L and R. Mechanical lift for transfer to commode. She is able to sit independently on commode. PT-Balance Assessment Sitting Balance and Reactions Static Sitting Balance Ability Good M5 PT-IP Objective Assessments Start: 04/07/18 12:04 Freq: NEEDED Status: Active Protocol: Document 04/07/18 10:15 (Rec: 04/07/18 12:31 [email or web address]) Orientation Orientation/Cognition Level of Alertness Alert Orientation Name Age Birthday Month Date Year Day of Week Place Situation Language Function Ability No Deficits Noted Comments Pt has depressed affect. Mentions wishing she could make it all go away. Gross Range of Motion Lower Extremity ROM Assessment Bilaterally Impaired Impairments Limited by anthropometrics Strength Lower Extremity Strength Assessment Bilaterally Impaired Comments Strength Comments Gross LE strength 2-/5. Pt requires assist to move legs through avaliable ROM. M6 PT-IP Treatment Start: 04/07/18 12:04 Freq: NEEDED Status: Active Protocol: Document 04/07/18 10:15 (Rec: 04/07/18 12:31 [email or web address]) Physical Therapy Treatment Exercises Exercises Ankle Pumps Heel Slides Education Education Provided Safety Other Treatments Other Treatment Performed Heel slides performed active assistive X15 each leg. Ankle pumps X20 and pt instructed to perform 20 every hr. M7 PT-IP Assessment and Plan Start: 04/07/18 12:04 Freq: NEEDED Status: Active Protocol: Document 04/07/18 10:15 (Rec: 04/07/18 12:31 [email or web address]) PT Summary Assessment and Plan Potential Rehabilitation Potential Fair Status of Condition at Evaluation Stable Summary Impairments Pain ROM Strength Balance Bed Mobility Transfers Gait Activity Tolerance Progress Towards Goals Slow Progress due to Pain Slow Progress due to Medical Issues Slow Progress due to Activity Tolerance Assessment Summary Pt admitted for renal injury and L hematoma presents with generalized weakness and impaired mobility. She required maxA x3 for log rolling and mechanical lift to transfer to [facility]. At this time recommending d/c to SNF due to patients impaired mobility and need for assist. Goals Bed Mobility Goal Maximal Assistance Transfer Goal Maximal Assistance Front Wheeled Walker Gait Goal Maximal Assistance Front Wheel Walker Gait Distance 3 ft Days to Meet Goals 5 Frequency of Treatment Frequency Of Treatment Once a Day Treatment Plan Physical Therapy Treatment Plan Bed Mobility Training Transfer Training Gait Training Therapeutic Exercise Balance Retraining Hot or Cold Pack Neuromuscular Re-ed Coordination Retraining Manual Therapy Other Recommendations and Next Treatment Bed mobility. Functional Focus strengthening Recommendations To Nursing Amount of Assist Needed Mechanical Lift Discharge Recommendations PT Discharge Recommendations SNF Rehab
[2018-04-07] MEDS: INSULIN ASPART 100 UNIT/ML INSULN PEN SUBCUT (11:51)
--- NOTE | 2018-04-07 14:06 | PM.PN.1 ---
Subjective Date Patient Seen: 04/07/18 Interval history: Patient has no specific complaints. She denies pain in her leg while resting. She continues to have a swollen leg, with ulceration and oozing. the leg is firm to touch at the hematoma site Exam Vital Signs (past 8 hours): - 04/07/18 07:00 04/07/18 07:40 04/07/18 08:25 Temperature 98.6 F Pulse Rate 73 Respiratory Rate 18 Blood Pressure 130/61 Pulse Oximetry 94 97 87 L 04/07/18 08:26 04/07/18 11:55 Temperature 97.8 F Pulse Rate 73 Respiratory Rate 18 Blood Pressure 142/63 H Pulse Oximetry 96 95 Oxygen Delivery Method Nasal Cannula Oxygen Flow Rate 1 Narrative Exam Narrative: Pleasant female in no acute distress Lungs: Clear to auscultation CV: irregularly, irregular, Nl S1S2 Abd: soft/nontender Ext: Left lower extremity with a large firm hematoma along the dorsal surface of the leg, there is a 2 by 2 cm blister, the leg is warm, firm, with significant ecchymosis Objective Labs Result Diagrams: 04/07/18 05:48 04/07/18 05:48 Labs: Laboratory Results - last 24 hr 04/07/18 04/07/18 05:48 05:48 WBC 15.1 H RBC 2.99 L Hgb 8.8 L Hct 27.2 L MCV 91.0 MCH 29.3 MCHC 32.2 RDW 15.0 H Plt Count 232 Neut % (Auto) Not Reportable Lymph % (Auto) Not Reportable [place] % (Auto) Not Reportable Eos % (Auto) Not Reportable Baso % (Auto) Not Reportable Total Counted 100 Seg Neutrophils % 49.0 Band Neutrophils % 5.0 Lymphocytes % (Manual) 6.0 L Atypical Lymphs % 12.0 H Monocytes % (Manual) 25.0 H Eosinophils % (Manual) 3.0 Neutrophils # (Manual) 8154 H RBC Morphology See below Polychromasia 1+ H Sodium 139 Potassium 4.5 Chloride 101 Carbon Dioxide 28 BUN 31 H Creatinine 1.30 H Estimated GFR 39.8 L BUN/Creatinine Ratio 23.8 H Glucose 83 Calcium 8.5 Assessment & Plan (1) Hematoma of leg: Problem details: Conservative management Qualifiers: Encounter type: Laterality: Current visit: Yes Status: Acute (2) Leg ulcer, left: Problem details: Continue wound care Current visit: No Status: Acute (3) Acute renal failure: Problem details: Continue IV hydration, follow labs daily Current visit: Yes Status: Acute
[2018-04-07] MEDS: AMOXICILLIN/CLAV 875/125 MG 1 TAB PO ×2 (14:35→20:33)
--- NOTE | 2018-04-07 16:35 | PC.NURSE ---
Addendum entered by Maryam Rose R.N. 04/07/18 22:25: Relatively uneventful evening. Med at 2030 w/ oxycodone for discomfort, with good relief. Condition remains essentially unchanged. Call light w/in reach. Continue w/plan of care. Original Note: Pt awake, watching TV. Denies discomfort at this time. Lungs clear/diminished at bases, SpO2 93% RA. 1+ to 2+ edema in hands and feet. HL in RAC intact/patent Call light w/in reach.
[2018-04-07] MEDS: dilTIAZem CD 240 MG CAP PO (17:27)
[2018-04-07] MEDS: ARIPiprazole 10 MG TABLET 2.5 MG PO (20:34)
[2018-04-07] MEDS: ATORVASTATIN 20 MG TABLET 40 MG PO (20:35)
[2018-04-07] MEDS: SENNOSIDES 8.6 MG TABLET 17.2 MG PO (20:37)
[2018-04-08] VITALS (7 sets, daily range): BP systolic 146–155; BP diastolic 62–80; PULSE 90–94; RESP 18; TEMP 36.9–37.2; O2SAT 89–96
--- NOTE | 2018-04-08 03:06 | PC.NURSE ---
Medical Technologist Generalist Note:] 0030: Awake, up to bedside commode with ceiling lift, had small stool. Assisted to reposition in bed. Vital signs stable. Saline lock in place in rt AC. 0315: Awake, assisted up to bedside commode with ceiling lift, for bowel movement.
[2018-04-08] MEDS: LEVOTHYROXINE 88 MCG TABLET PO (05:45)
[2018-04-08 06:07] LABS: Hematocrit 28.2 % (36-46); Hemoglobin 9.3 g/dL (12.0-16.0); Mean Corpuscular HGB Conc 33.1 % (30-36); Mean Corpuscular Hemoglobin 29.6 PG (26-34); Mean Corpuscular Volume 89.4 fL (80-100); Platelet Count 261 X10^3/uL (150-400); Red Blood Cell Count 3.15 X10^6/uL (4.0-5.2); Red Cell Distribution Width 14.8 % (11.6-14.8); White Blood Cell Count 18.5 X10^3/uL (4.5-11.0)
[2018-04-08 06:11] LABS: Add Manual Diff / Slide Review YES
[2018-04-08 06:16] LABS: BUN Creatinine Ratio 27.5 (6-22); Blood Urea Nitrogen 22 mg/dL (7-17); Calcium 8.2 mg/dL (8.4-10.2); Carbon Dioxide 25 mmol/L (22-32); Chloride 98 mmol/L (98-107); Estimated Glomerular Filt Rate > 60.0 mL/min (>60); Glucose 125 mg/dL (80-110); HEMOLYSIS < 15 (0-50); Potassium 4.3 mmol/L (3.4-5.1); Sodium 137 mmol/L (137-145)
[2018-04-08 07:21] LABS: Neutrophils Absolute Manual 12025 /uL (3000-5900); Nucleated Red Blood Cells 1 #/Diff; Total Cells Counted 100
[2018-04-08 07:23] LABS: Polychromasia 1+
[2018-04-08] MEDS: AMOXICILLIN/CLAV 875/125 MG 1 TAB PO (09:35)
[2018-04-08] MEDS: ASPIRIN EC 81 MG TABLET PO (09:35)
[2018-04-08] MEDS: buPROPion SR 100 MG TAB PO (09:35)
[2018-04-08] MEDS: DOCUSATE 100 MG CAPSULE 200 MG PO (09:36)
[2018-04-08] MEDS: GABAPENTIN 400 MG CAPSULE 800 MG PO (09:37)
[2018-04-08] MEDS: DULOXETINE 30 MG CAPSULE 60 MG PO (09:38)
[2018-04-08] MEDS: PANTOPRAZOLE 20 MG TABLET PO (09:38)
[2018-04-08] MEDS: ENOXAPARIN 40 MG/0.4 ML SYRINGE SUBCUT (09:39)
[2018-04-08] MEDS: INSULIN ASPART 100 UNIT/ML INSULN PEN 10 UNIT SUBCUT (09:44)
[2018-04-08] MEDS: INSULIN GLARGINE 100 UNIT/ML 3ML PEN 50 UNIT SUBCUT (09:45)
[2018-04-08] MEDS: OXYCODONE ER 20 MG TAB PO (09:46)
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
--- NOTE | 2018-04-08 10:32 | CM.DPC ---
Addendum entered by Marichuy Delatorre LPN 04/08/18 11:49: All is now set up with [facility]. Bariatric equipment is being set up (pt currently 374 lbs). PASRR completed, signed and faxed to [facility] along with the snf orders and d/c summary. [facility] is [facility] for 1330 pickup/bariatric stretcher. Pt is updated and at her request have notified her . He will see her at the facility shortly after she arrives. MARTHA Humphreys is updated and will call report. Original Note: DCP: continued: Dr. Hernandez states pt is ready for d/c today and therapy staff continues to recommend snf setting. See that pt and her are agreeable to [facility] before a return to [facility].
--- NOTE | 2018-04-08 11:01 | CM.DPC ---
D/C packet faxed to [facility] per Marichuy. She will fax PAS
[2018-04-08] MEDS: OXYCODONE IR 10 MG TABLET PO (11:04)
--- NOTE | 2018-04-08 12:08 | PT.IPTN ---
Current Diagnoses Non-pressure chronic ulcer of unspecified part of left lower leg with unspecified severity (04/03/18) Acute kidney failure, unspecified (04/03/18) Urinary tract infection, site not specified (04/03/18) Contusion of unspecified lower leg, initial encounter (04/03/18) Physical Therapy Treatment Note M2 PT-IP Current Condition Start: 04/07/18 12:04 Freq: NEEDED Status: Active Protocol: Document 04/07/18 10:15 (Rec: 04/07/18 12:31 [email or web address]) Physical Therapy Current Condition Current Condition Evaluation Date 04/07/18 Treatment Diagnosis Renal injury; L calf hematoma; impaired mobility. 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 Therapy Pain Assessment Pain When Pain Assessed At Rest Pain Present Pain Present Pain Reported Location Back Intensity 4 Scale Used Numeric (1 - 10) Pain Management Techniques Modification of Treatment Re-positioning Timing of Activity with Medications M4 PT-IP Mobility and Gait Start: 04/07/18 12:04 Freq: NEEDED Status: Active Protocol: Document 04/07/18 10:15 (Rec: 04/07/18 12:31 [email or web address]) PT-Bed Mobility Assessment Rolling Type of Rolling Log Rolling Roll to Right Roll to Left Level of Assist Maximal Assistance Scooting Scooting to Edge of Bed Dependent Scooting Up and Down in Bed Dependent PT-Transfer Assessment Equipment Transfer Assistive Device Mechanical Lift Orthotic/Prosthetic Devices or Brace: No Transfers Transfer Destination Bedside Commode Transfer Technique Mechanical Lift Comments Mobility Comments Pt required maxA x3 for log rolling L and R. Mechanical lift for transfer to commode. She is able to sit independently on commode. PT-Balance Assessment Sitting Balance and Reactions Static Sitting Balance Ability Good M5 PT-IP Objective Assessments Start: 04/07/18 12:04 Freq: NEEDED Status: Active Protocol: Document 11/12/18 10:15 (Rec: 04/07/18 12:31 [email or web address]) Orientation Orientation/Cognition Level of Alertness Alert Orientation Name Age Birthday Month Date Year Day of Week Place Situation Language Function Ability No Deficits Noted Comments Pt has depressed affect. Mentions wishing she could make it all go away. Gross Range of Motion Lower Extremity ROM Assessment Bilaterally Impaired Impairments Limited by anthropometrics Strength Lower Extremity Strength Assessment Bilaterally Impaired Comments Strength Comments Gross LE strength 2-/5. Pt requires assist to move legs through avaliable ROM. M6 PT-IP Treatment Start: 04/07/18 12:04 Freq: NEEDED Status: Active Protocol: Document 04/08/18 11:35 CLB (Rec: 04/08/18 12:06 CLB [email or web address]) Physical Therapy Treatment Exercises Exercises Ankle Pumps Quad Sets Heel Slides M7 PT-IP Assessment and Plan Start: 04/07/18 12:04 Freq: NEEDED Status: Active Protocol: Document 04/08/18 12:06 CLB (Rec: 04/08/18 12:08 CLB [email or web address]) PT Summary Assessment and Plan Summary Progress Towards Goals Slow Progress due to Pain Slow Progress due to Medical Issues Slow Progress due to Activity Tolerance Assessment Summary Pt required AA for HS and cues for quad sets. Pt was sleepy towards end of tx. Goals Bed Mobility Goal Maximal Assistance Transfer Goal Maximal Assistance Front Wheeled Walker Gait Goal Maximal Assistance Front Wheel Walker Gait Distance 3 ft Days to Meet Goals 5 Frequency of Treatment Frequency Of Treatment Once a Day Treatment Plan Physical Therapy Treatment Plan Bed Mobility Training Transfer Training Gait Training Therapeutic Exercise Balance Retraining Hot or Cold Pack Neuromuscular Re-ed Coordination Retraining Manual Therapy Recommendations To Nursing Amount of Assist Needed Mechanical Lift Discharge Recommendations PT Discharge Recommendations SNF Rehab
--- NOTE | 2018-04-08 13:12 | PC.NURSE ---
Day Shift- Pt's friend Yolanda with pt's permission is taking pt's wedding band upon discharge to give to pt's over at [facility]. The wedding band does not currently fit onto pt's fingers. Report given to MARTHA St at [facility] at 1240 on pt's current status. Pt given prn oxycodone at 1105 for 7/10 pain that decreased to 5/10 upon reassessment. Chronic pain to mid lower back. LLE dressing intact with scant serous drainage noted to proximal end of dressing over cohn area. Pt states she has all her belongings upon discharge.
== END 2018-04-08 13:59 | DRG 699 ==
LOC: ED 22:34 → AC 23:50
PROVIDERS: Internal Medicine; Admitting Provider Internal Medicine; Emergency Provider Emergency Medicine; Family Provider Internal Medicine; PCP Internal Medicine; Visit Provider Internal Medicine
DX: T83.511A Infection and inflammatory reaction due to indwelling urethral catheter, initial encounter (principal); Z68.43 Body mass index [BMI] 50.0-59.9, adult; D68.32 Hemorrhagic disorder due to extrinsic circulating anticoagulants; D62 Acute posthemorrhagic anemia; F11.20 Opioid dependence, uncomplicated; N17.9 Acute kidney failure, unspecified; N39.0 Urinary tract infection, site not specified; B96.20 Unspecified Escherichia coli [E. coli] as the cause of diseases classified elsewhere; S80.12XA Contusion of left lower leg, initial encounter; T45.515A Adverse effect of anticoagulants, initial encounter; W05.0XXA Fall from non-moving wheelchair, initial encounter; E66.01 Morbid (severe) obesity due to excess calories; G89.4 Chronic pain syndrome; E11.9 Type 2 diabetes mellitus without complications; I48.2 Chronic atrial fibrillation; Z79.01 Long term (current) use of anticoagulants; K21.9 Gastro-esophageal reflux disease without esophagitis; E03.9 Hypothyroidism, unspecified; E78.5 Hyperlipidemia, unspecified; S00.83XA Contusion of other part of head, initial encounter; M25.562 Pain in left knee; I25.10 Atherosclerotic heart disease of native coronary artery without angina pectoris; N18.3 Chronic kidney disease, stage 3 (moderate); F32.9 Major depressive disorder, single episode, unspecified; G47.33 Obstructive sleep apnea (adult) (pediatric); Z79.4 Long term (current) use of insulin; W23.0XXA Caught, crushed, jammed, or pinched between moving objects, initial encounter; Z66 Do not resuscitate; I12.9 Hypertensive chronic kidney disease with stage 1 through stage 4 chronic kidney disease, or unspecified chronic kidney disease
CPT/HCPCS: 36415; 36591; 70450; 71045; 73562; 73590; 76882; 80048; 80053; 81001; 82962; 83605; 83880; 84145; 85025; 85610; 85730; 87040; 87070; 87077; 87086; 87186; 87205; 94760; 96365; 96366; 96367; 96375; 97110; 97162; 97530; 99284; 99285; J0696; J1170; J1650; J1956; J7050

== ENCOUNTER 2018-04-14 11:47 | Inpatient (IN) | payer MEDICARE, OTHER, MEDICAID, SELFPAY ==
[2018-04-04 01:08] VITALS: BMI 55.2
[2018-04-14] VITALS (14 sets, daily range): BP systolic 111–189; BP diastolic 55–85; PULSE 72–80; RESP 14–20; TEMP 36.7–37.1; O2SAT 86–98; BMI 54.3
--- NOTE | 2018-04-14 | DI.US.S_ITS ---
PROCEDURE: US PERIPH VENOUS LOW EXTREM LT INDICATIONS: RECENT CALF INJURY; EDEMA TECHNIQUE: Real-time imaging, as well as color and pulse Doppler interrogation, were performed of the lower extremity deep veins from the inguinal ligament to the popliteal fossa. COMPARISON: None. FINDINGS: The deep veins are normally compressible, and free of intraluminal thrombus. Color and pulse Doppler demonstrate normal phasic intraluminal flow. There is normal augmentation response to distal compression maneuver. IMPRESSION: No DVT found left lower extremity. Dictated by: Son Headley M.D. on 04/15/2018 at 11:36 Approved by: Son Headley M.D. on 04/15/2018 at 11:37
--- NOTE | 2018-04-14 12:01 | PC.NURSE ---
Left lower leg hematoma opened during the night. Bleeding now controlled w/ dressing. CSM intact distally.
--- NOTE | 2018-04-14 12:32 | ED_ITS ---
HPI - Extremity Problem <JUANJO Mensah - Last Filed: 04/14/18 22:02> General Chief complaint: Extremity Problem,Nontraumatic Stated complaint: GLF Time Seen by Provider: 04/14/18 12:29 Source: patient Mode of arrival: wheelchair Limitations: no limitations History of Present Illness HPI Narrative: 77-year-old female with history of AFib and is a nonsmoker here for complaint of a hematoma to her left lower extremity that ruptured last night. She had a ground level fall over a week ago where she fell out of her wheelchair when the hematoma started. She was recently admitted for sepsis most likely urosepsis and was discharged. Orthopedics saw the hematoma and elected not to operate on the hematoma at that time. Hematoma last night ruptured that was able to be controlled with direct pressure to the area. She is here for further evaluation due to the hematoma to the left lower extremity. She denies any new trauma to the area. She denies any fevers or chills. She denies any increased pain to the area. Related Data Home Medications Medication Instructions Recorded Confirmed bisacodyl 10 mg NE PRN PRN #0 07/05/16 04/14/18 hydroxyzine pamoate [Vistaril] 25 mg PO Q6HP PRN #0 07/05/16 04/14/18 nitroglycerin [Nitrostat] 0.4 mg SUBLINGUAL PRN PRN #0 07/05/16 04/14/18 diphenhydramine HCl [Benadryl 25 mg PO Q8HP PRN #0 04/08/17 04/14/18 Allergy] ondansetron HCl 4 mg PO Q4HP PRN #0 04/08/17 04/14/18 bisacodyl 10 mg PO PRN PRN 12/04/17 04/14/18 nystatin 1 applic TOPICAL PRN PRN 12/04/17 04/14/18 furosemide 40 mg PO DAILY PRN 04/02/18 04/14/18 magnesium hydroxide [Milk of 30 ml PO PRN PRN 04/02/18 04/14/18 Magnesia] sodium phosphates [Fleet Enema] 1 ea NE PRN PRN 04/02/18 04/14/18 acetaminophen 650 mg PO Q4H PRN MDD 3 g 04/03/18 04/14/18 aripiprazole 2.5 mg PO DAILY 04/03/18 04/14/18 aspirin [Aspir-Low] 81 mg PO DAILY 04/03/18 04/14/18 atorvastatin 40 mg PO BEDTIME 04/03/18 04/14/18 bupropion HCl 100 mg PO BID 04/03/18 04/14/18 diltiazem HCl 240 mg PO DAILY 04/03/18 04/14/18 docusate sodium 200 mg PO BID 04/03/18 04/14/18 duloxetine 60 mg PO DAILY 04/03/18 04/14/18 furosemide [Lasix] 20 mg PO DAILY 04/03/18 04/14/18 gabapentin 800 mg PO TID 04/03/18 04/14/18 hydroxyzine pamoate [Vistaril] 25 mg PO QID PRN 04/03/18 04/14/18 lisinopril 10 mg PO BID 04/03/18 04/14/18 mirabegron [Myrbetriq] 25 mg PO DAILY 04/03/18 04/14/18 mirtazapine 15 mg PO BEDTIME 04/03/18 04/14/18 multivitamin with iron-mineral 1 tab PO DAILY 04/03/18 04/14/18 nortriptyline 25 mg PO BEDTIME 04/03/18 04/14/18 oxycodone 10 mg PO Q6H PRN 04/03/18 04/14/18 oxycodone [OxyContin] 20 mg PO Q12H 04/03/18 04/14/18 pantoprazole 20 mg PO DAILY 04/03/18 04/14/18 potassium chloride 10 meq PO DAILY 04/03/18 04/14/18 rivaroxaban [Xarelto] 20 mg PO DAILY 04/03/18 04/14/18 acetaminophen 1,000 mg PO BID MDD 3 g 04/14/18 04/14/18 amoxicillin-pot clavulanate 1 tab PO BIDX5 04/14/18 04/14/18 [Augmentin] levothyroxine 88 mcg PO DAILY 04/14/18 04/14/18 zinc oxide 1 applic TOPICAL TID 04/14/18 04/14/18 Previous Rx's Medication Instructions Recorded insulin glargine [Lantus Solostar 50 unit SUBCUT BID 30 Days #30 ml 04/08/18 U-100 Insulin] Allergies Allergy/AdvReac Type Severity Reaction Status Date / Time adhesive [ADHESIVE] Allergy Mild ALLERGY TO Verified 12/05/17 14:53 TAPE Review of Systems <JUANJO Mensah - Last Filed: 04/14/18 22:02> Constitutional Denies chills, Denies fever(s), Denies lethargy and Denies weakness Eyes Denies change in vision, Denies eye discharge, Denies irritation and Denies loss of vision ENT Ears, Nose, Mouth, and Throat: Denies change in voice, Denies neck pain and Denies sore throat Cardiovascular Denies chest pain, Denies irregular heart rhythm, Denies lightheadedness, Denies palpitations, Denies dyspnea, Denies dyspnea on exertion and Denies orthopnea Respiratory Denies cough, Denies dyspnea, Denies dyspnea on exertion and Denies wheezing Gastrointestinal Gastrointestinal: Denies abdominal pain, Denies change in bowel habits, Denies diarrhea, Denies nausea and Denies vomiting Genitourinary Denies hematuria, Denies flank pain, Denies urinary incontinence and Denies urinary urgency Musculoskeletal Denies neck pain Integumentary/Breasts Denies pruritus, Denies erythema, Denies rash and Denies wounds Neurologic Denies loss of vision and Denies weakness Endocrine Denies palpitations Hematologic/Lymphatic Denies easy bruising Allergic/Immunologic Denies wheezing Exam <JUANJO Mensah - Last Filed: 04/14/18 22:02> Initial Vital Signs Initial Vital Signs: Vital Signs Temperature 98.8 F 04/14/18 11:54 Pulse Rate 79 04/14/18 11:54 Respiratory Rate 20 04/14/18 11:54 Blood Pressure 189/62 H 04/14/18 11:54 Pulse Oximetry 92 04/14/18 11:54 Const General: cooperative and well developed Nutritional Appearance: well nourished Orientation: alert, awake, oriented x3 and not confused [facility] Mouth: oral mucosae normal and moist mucous membranes Eyes Conjunctivae: conjunctivae normal Sclera: sclerae normal Pupils: PERRL EOM: EOM intact bilaterally Resp Effort & Inspection: normal respiratory effort, able to speak in complete sentences, no respiratory distress and no use of accessory muscles Auscultation: clear to auscultation bilaterally, no rales, no rhonchi and no wheezes Cardio Rate: regular rate Rhythm: regular rhythm Heart Sounds: no click, no gallops, no murmurs and no rubs Skin General: No jaundice and No petechiae Neuro General: alert, oriented x3, gait normal and no focal motor deficits Speech: speech normal Extrem Other: Left lower extremity with large hematoma to the medial aspect of the calf area trickling of blood. 2-3 cm hole into the hematoma area able to express blood clots from the hole from the hematoma. Distal sensation is intact. Distal pulses are intact. Distal range of motion is intact. Surrounding erythema to the hematoma area. Increased temperature on palpation. <Aliza Valdez MD - Last Filed: 04/15/18 07:40> Initial Vital Signs Initial Vital Signs: Vital Signs Temperature 98.8 F 04/14/18 11:54 Pulse Rate 79 04/14/18 11:54 Respiratory Rate 20 04/14/18 11:54 Blood Pressure 189/62 H 04/14/18 11:54 Pulse Oximetry 92 04/14/18 11:54 Course <JUANJO Mensah - Last Filed: 04/14/18 22:02> Orders Ordered: ED Orders 04/15/18 00:45 Urinalysis and Microscopic Routine Urine Culture Routine Wound Culture and Gram Stain Routine 04/15/18 06:19 Basic Metabolic Panel Routine Complete Blood Count AUTO DIFF Routine Prothrombin Time INR Routine Acetaminophen (Tylenol) 650 mg PO Q6HR PRN PRN Reason: As Needed for Fever/Mild Pain Al Hydrox/Mg Hydrox/Simethicone (Maalox Plus) 30 ml PO Q6HR PRN PRN Reason: Dyspepsia Aripiprazole (Abilify) 2.5 mg PO DAILY [facility] Atorvastatin Calcium (Lipitor) 40 mg PO BEDTIME [facility] Last Admin: 04/14/18 21:34 Dose: 40 mg Bisacodyl (Dulcolax) 10 mg NE DAILY PRN PRN Reason: Constipation Bupropion HCl (Welbutrin) 100 mg PO BID [facility] Last Admin: 04/14/18 21:37 Dose: 100 mg Dextrose (D50w) 25 gm IV PRN PRN; Protocol PRN Reason: Hypoglycemia Diltiazem HCl (Cardizem Cd) 240 mg PO DAILY [facility] Docusate Sodium (Colace) 100 mg PO BID [facility] Last Admin: 04/14/18 21:35 Dose: 100 mg Duloxetine HCl (Cymbalta) 60 mg PO DAILY [facility] Gabapentin (Neurontin) 800 mg PO TID [facility] Last Admin: 04/14/18 21:35 Dose: 800 mg Hydromorphone HCl (Dilaudid) 0.5 mg IV Q6HR PRN PRN Reason: Pain, Moderate (4-6) Ceftriaxone Sodium/Dextrose (Rocephin) 2 gm in 50 mls @ 100 mls/hr IV Q24H [facility] Last Infusion: 04/14/18 21:54 Dose: 0 mls/hr Admin: 04/14/18 20:01 Dose: 100 mls/hr Sodium Chloride (Normal Saline 0.45%) 1,000 mls @ 84 mls/hr IV CONT [facility] Last Admin: 04/14/18 20:00 Dose: 84 mls/hr Ibuprofen (Advil) 600 mg PO Q6HR PRN PRN Reason: As Needed for Fever/Mild Pain Insulin Aspart (Novolog Flexpen) 0 unit SUBCUT [facility]; Protocol Last Admin: 04/14/18 21:38 Dose: 2 unit Insulin Glargine (Lantus Solostar (Pen)) 50 unit SUBCUT BID [facility] Last Admin: 04/14/18 21:37 Dose: 50 unit Levothyroxine Sodium (Synthroid) 88 mcg PO 0600 [facility] Last Admin: 04/15/18 06:27 Dose: 88 mcg Lisinopril (Zestril) 10 mg PO BID [facility] Last Admin: 04/14/18 21:35 Dose: 10 mg Mirtazapine (Remeron) 15 mg PO BEDTIME [facility] Last Admin: 04/14/18 21:48 Dose: 15 mg Nitroglycerin (Nitrostat) 0.4 mg SL [id number] PRN PRN Reason: Chest Pain Ondansetron HCl (Zofran) 4 mg IV Q8HR PRN PRN Reason: Nausea And Vomiting Oxycodone HCl (Oxycontin) 20 mg PO BID [facility] Last Admin: 04/14/18 21:48 Dose: 20 mg Oxycodone HCl (Oxycodone) 10 mg PO Q4HR PRN PRN Reason: Pain, Moderate (4-6) Pantoprazole Sodium (Protonix) 20 mg PO 0700 [facility] Last Admin: 04/15/18 06:30 Dose: 20 mg Sennosides (Senna) 17.2 mg PO BEDTIME [facility] Last Admin: 04/14/18 21:35 Dose: 17.2 mg Discontinued Medications Furosemide (Lasix) 20 mg PO DAILY [facility] Gabapentin (Neurontin) 800 mg PO TID [facility] Last Admin: 04/15/18 00:39 Dose: Dextrose/Sodium Chloride (Dextrose 5%-0.45% Ns) 1,000 mls @ 100 mls/hr IV CONT [facility] Last Admin: 04/15/18 00:39 Dose: Oxycodone/Acetaminophen (Percocet 5/325) 1 tab PO NOW ONE Stop: 04/14/18 17:43 Last Admin: 04/14/18 17:52 Dose: 1 tab Vital Signs - 8 hr 04/15/18 02:45 04/15/18 05:00 04/15/18 05:56 Temperature 97.3 F L Pulse Rate 62 Respiratory Rate 16 Blood Pressure 117/58 L Pulse Oximetry 95 95 97 <Aliza Valdez MD - Last Filed: 04/15/18 07:40> Orders Ordered: ED Orders 04/15/18 00:45 Urinalysis and Microscopic Routine Urine Culture Routine Wound Culture and Gram Stain Routine 04/15/18 06:19 Basic Metabolic Panel Routine Complete Blood Count AUTO DIFF Routine Prothrombin Time INR Routine Acetaminophen (Tylenol) 650 mg PO Q6HR PRN PRN Reason: As Needed for Fever/Mild Pain Al Hydrox/Mg Hydrox/Simethicone (Maalox Plus) 30 ml PO Q6HR PRN PRN Reason: Dyspepsia Aripiprazole (Abilify) 2.5 mg PO DAILY [facility] Atorvastatin Calcium (Lipitor) 40 mg PO BEDTIME [facility] Last Admin: 04/14/18 21:34 Dose: 40 mg Bisacodyl (Dulcolax) 10 mg NE DAILY PRN PRN Reason: Constipation Bupropion HCl (Welbutrin) 100 mg PO BID [facility] Last Admin: 04/14/18 21:37 Dose: 100 mg Dextrose (D50w) 25 gm IV PRN PRN; Protocol PRN Reason: Hypoglycemia Diltiazem HCl (Cardizem Cd) 240 mg PO DAILY [facility] Docusate Sodium (Colace) 100 mg PO BID [facility] Last Admin: 04/14/18 21:35 Dose: 100 mg Duloxetine HCl (Cymbalta) 60 mg PO DAILY [facility] Gabapentin (Neurontin) 800 mg PO TID [facility] Last Admin: 04/14/18 21:35 Dose: 800 mg Hydromorphone HCl (Dilaudid) 0.5 mg IV Q6HR PRN PRN Reason: Pain, Moderate (4-6) Ceftriaxone Sodium/Dextrose (Rocephin) 2 gm in 50 mls @ 100 mls/hr IV Q24H [facility] Last Infusion: 04/14/18 21:54 Dose: 0 mls/hr Admin: 04/14/18 20:01 Dose: 100 mls/hr Sodium Chloride (Normal Saline 0.45%) 1,000 mls @ 84 mls/hr IV CONT [facility] Last Admin: 04/14/18 20:00 Dose: 84 mls/hr Ibuprofen (Advil) 600 mg PO Q6HR PRN PRN Reason: As Needed for Fever/Mild Pain Insulin Aspart (Novolog Flexpen) 0 unit SUBCUT ACHS [facility]; Protocol Last Admin: 04/14/18 21:38 Dose: 2 unit Insulin Glargine (Lantus Solostar (Pen)) 50 unit SUBCUT BID [facility] Last Admin: 04/14/18 21:37 Dose: 50 unit Levothyroxine Sodium (Synthroid) 88 mcg PO 0600 [facility] Last Admin: 04/15/18 06:27 Dose: 88 mcg Lisinopril (Zestril) 10 mg PO BID [facility] Last Admin: 04/14/18 21:35 Dose: 10 mg Mirtazapine (Remeron) 15 mg PO BEDTIME [facility] Last Admin: 04/14/18 21:48 Dose: 15 mg Nitroglycerin (Nitrostat) 0.4 mg SL [id number] PRN PRN Reason: Chest Pain Ondansetron HCl (Zofran) 4 mg IV Q8HR PRN PRN Reason: Nausea And Vomiting Oxycodone HCl (Oxycontin) 20 mg PO BID [facility] Last Admin: 04/14/18 21:48 Dose: 20 mg Oxycodone HCl (Oxycodone) 10 mg PO Q4HR PRN PRN Reason: Pain, Moderate (4-6) Pantoprazole Sodium (Protonix) 20 mg PO 0700 [facility] Last Admin: 04/15/18 06:30 Dose: 20 mg Sennosides (Senna) 17.2 mg PO BEDTIME [facility] Last Admin: 04/14/18 21:35 Dose: 17.2 mg Discontinued Medications Furosemide (Lasix) 20 mg PO DAILY [facility] Gabapentin (Neurontin) 800 mg PO TID [facility] Last Admin: 04/15/18 00:39 Dose: Dextrose/Sodium Chloride (Dextrose 5%-0.45% Ns) 1,000 mls @ 100 mls/hr IV CONT [facility] Last Admin: 04/15/18 00:39 Dose: Oxycodone/Acetaminophen (Percocet 5/325) 1 tab PO NOW ONE Stop: 04/14/18 17:43 Last Admin: 04/14/18 17:52 Dose: 1 tab Vital Signs - 8 hr 04/15/18 02:45 04/15/18 05:00 04/15/18 05:56 Temperature 97.3 F L Pulse Rate 62 Respiratory Rate 16 Blood Pressure 117/58 L Pulse Oximetry 95 95 97 MDM - Extremity (Nontraumatic) <JUANJO Mensah - Last Filed: 04/14/18 22:02> Lab Data Result diagrams: 04/15/18 06:19 04/15/18 06:19 Lab Results 04/14/18 04/14/18 04/14/18 Range/Units 12:52 12:52 12:52 WBC 11.9 H (4.5-11.0) X10^3/uL RBC 3.44 L (4.0-5.2) X10^6/uL Hgb 10.0 L (12.0-16.0) g/dL Hct 31.2 L (36-46) % MCV 90.8 (80-100) fL MCH 29.1 (26-34) PG MCHC 32.1 (30-36) % RDW 15.1 H (11.6-14.8) % Plt Count 363 (150-400) X10^3/uL Neut % (Auto) 63.4 (50-75) % Lymph % (Auto) 14.9 L (25-40) % [place] % (Auto) 20.1 H (3-14) % Eos % (Auto) 1.1 L (2-4) % Baso % (Auto) 0.5 (0-2) % Neut # (Auto) 7600 H (3792-4628) /uL PT 24.8 H (10.1-12.7) SECONDS INR 2.2 H (0.9-1.3) APTT 44 H D (26.4-36.2) SECONDS Sodium 141 (137-145) mmol/L Potassium 4.6 (3.4-5.1) mmol/L Chloride 97 L (98-107) mmol/L Carbon Dioxide 34 H (22-32) mmol/L BUN 18 H (7-17) mg/dL Creatinine 0.80 (0.52-1.04) mg/dL Estimated GFR > 60.0 (>60) mL/min BUN/Creatinine Ratio 22.5 H (6-22) Glucose 179 H (80-110) mg/dL Lactate (0.7-2.1) mmol/L Calcium 9.1 (8.4-10.2) mg/dL Total Bilirubin 0.6 (0.2-1.3) mg/dL AST 25 (14-36) IU/L ALT 27 (9-52) IU/L Alkaline Phosphatase 91 (38-126) U/L Total Protein 8.1 (6.3-8.2) g/dL Albumin 4.0 (3.5-5.0) g/dL Globulin 4.1 (1.7-4.1) g/dL Albumin/Globulin Ratio 1.0 (1.0-2.8) Procalcitonin (<0.5) ng/mL Urine Color Urine Appearance Urine pH (4.5-8.0) Ur Specific [place] (1.000-1.035) Urine Protein (Negative) Urine Glucose (UA) (Normal) g/dL Urine Ketones (NEGATIVE) Urine Occult Blood (Negative) Urine Nitrate (Negative) Urine Bilirubin (NEGATIVE) Urine Urobilinogen (0.2) E.U./dL Ur Leukocyte Esterase (NEGATIVE) Urine RBC (0-5/HPF) Urine WBC (0-5/HPF) Ur Squamous Epith Cells Urine Bacteria (None) Ur Culture Indicated? Micro UA Comment 04/14/18 04/14/18 04/14/18 Range/Units 12:52 12:52 20:58 WBC 12.2 H (4.5-11.0) X10^3/uL RBC 3.35 L (4.0-5.2) X10^6/uL Hgb 9.8 L (12.0-16.0) g/dL Hct 30.2 L (36-46) % MCV 90.2 (80-100) fL MCH 29.3 (26-34) PG MCHC 32.5 (30-36) % RDW 15.3 H (11.6-14.8) % Plt Count 364 (150-400) X10^3/uL Neut % (Auto) 61.2 (50-75) % Lymph % (Auto) 19.7 L (25-40) % [place] % (Auto) 17.1 H (3-14) % Eos % (Auto) 1.3 L (2-4) % Baso % (Auto) 0.7 (0-2) % Neut # (Auto) 7400 H (6271-7040) /uL PT (10.1-12.7) SECONDS INR (0.9-1.3) APTT (26.4-36.2) SECONDS Sodium (137-145) mmol/L Potassium (3.4-5.1) mmol/L Chloride (98-107) mmol/L Carbon Dioxide (22-32) mmol/L BUN (7-17) mg/dL Creatinine (0.52-1.04) mg/dL Estimated GFR (>60) mL/min BUN/Creatinine Ratio (6-22) Glucose (80-110) mg/dL Lactate 1.9 (0.7-2.1) mmol/L Calcium (8.4-10.2) mg/dL Total Bilirubin (0.2-1.3) mg/dL AST (14-36) IU/L ALT (9-52) IU/L Alkaline Phosphatase (38-126) U/L Total Protein (6.3-8.2) g/dL Albumin (3.5-5.0) g/dL Globulin (1.7-4.1) g/dL Albumin/Globulin Ratio (1.0-2.8) Procalcitonin 0.25 (<0.5) ng/mL Urine Color Urine Appearance Urine pH (4.5-8.0) Ur Specific [place] (1.000-1.035) Urine Protein (Negative) Urine Glucose (UA) (Normal) g/dL Urine Ketones (NEGATIVE) Urine Occult Blood (Negative) Urine Nitrate (Negative) Urine Bilirubin (NEGATIVE) Urine Urobilinogen (0.2) E.U./dL Ur Leukocyte Esterase (NEGATIVE) Urine RBC (0-5/HPF) Urine WBC (0-5/HPF) Ur Squamous Epith Cells Urine Bacteria (None) Ur Culture Indicated? Micro UA Comment 04/14/18 04/15/18 04/15/18 Range/Units 20:58 00:45 06:19 WBC 11.4 H (4.5-11.0) X10^3/uL RBC 3.32 L (4.0-5.2) X10^6/uL Hgb 9.6 L (12.0-16.0) g/dL Hct 30.0 L (36-46) % MCV 90.5 (80-100) fL MCH 28.8 (26-34) PG MCHC 31.8 (30-36) % RDW 15.4 H (11.6-14.8) % Plt Count 360 (150-400) X10^3/uL Neut % (Auto) 56.0 (50-75) % Lymph % (Auto) 20.8 L (25-40) % [place] % (Auto) 21.3 H (3-14) % Eos % (Auto) 1.4 L (2-4) % Baso % (Auto) 0.5 (0-2) % Neut # (Auto) 6400 H (9184-8363) /uL PT (10.1-12.7) SECONDS INR (0.9-1.3) APTT (26.4-36.2) SECONDS Sodium 140 (137-145) mmol/L Potassium 4.3 (3.4-5.1) mmol/L Chloride 98 (98-107) mmol/L Carbon Dioxide 33 H (22-32) mmol/L BUN 16 (7-17) mg/dL Creatinine 0.80 (0.52-1.04) mg/dL Estimated GFR > 60.0 (>60) mL/min BUN/Creatinine Ratio 20.0 (6-22) Glucose 196 H (80-110) mg/dL Lactate (0.7-2.1) mmol/L Calcium 9.0 (8.4-10.2) mg/dL Total Bilirubin (0.2-1.3) mg/dL AST (14-36) IU/L ALT (9-52) IU/L Alkaline Phosphatase (38-126) U/L Total Protein (6.3-8.2) g/dL Albumin (3.5-5.0) g/dL Globulin (1.7-4.1) g/dL Albumin/Globulin Ratio (1.0-2.8) Procalcitonin (<0.5) ng/mL Urine Color Yellow Urine Appearance Clear Urine pH 7.0 (4.5-8.0) Ur Specific [place] 1.010 (1.000-1.035) Urine Protein Negative (Negative) Urine Glucose (UA) Negative (Normal) g/dL Urine Ketones Negative (NEGATIVE) Urine Occult Blood Trace-lysed (Negative) Urine Nitrate Negative (Negative) Urine Bilirubin Negative (NEGATIVE) Urine Urobilinogen 0.2 (0.2) E.U./dL Ur Leukocyte Esterase 2+ H (NEGATIVE) Urine RBC None seen (0-5/HPF) Urine WBC 10-30/hpf H (0-5/HPF) Ur Squamous Epith Cells 1-5 /hpf D Urine Bacteria Few (2-10) H (None) Ur Culture Indicated? Specimen cultured Micro UA Comment Not Reportable 04/15/18 04/15/18 Range/Units 06:19 06:19 WBC (4.5-11.0) X10^3/uL RBC (4.0-5.2) X10^6/uL Hgb (12.0-16.0) g/dL Hct (36-46) % MCV (80-100) fL MCH (26-34) PG MCHC (30-36) % RDW (11.6-14.8) % Plt Count (150-400) X10^3/uL Neut % (Auto) (50-75) % Lymph % (Auto) (25-40) % [place] % (Auto) (3-14) % Eos % (Auto) (2-4) % Baso % (Auto) (0-2) % Neut # (Auto) (4404-5468) /uL PT 17.6 H D (10.1-12.7) SECONDS INR 1.6 H (0.9-1.3) APTT (26.4-36.2) SECONDS Sodium 139 (137-145) mmol/L Potassium 4.4 (3.4-5.1) mmol/L Chloride 100 (98-107) mmol/L Carbon Dioxide 34 H (22-32) mmol/L BUN 15 (7-17) mg/dL Creatinine 0.80 (0.52-1.04) mg/dL Estimated GFR > 60.0 (>60) mL/min BUN/Creatinine Ratio 18.8 (6-22) Glucose 109 (80-110) mg/dL Lactate (0.7-2.1) mmol/L Calcium 8.9 (8.4-10.2) mg/dL Total Bilirubin (0.2-1.3) mg/dL AST (14-36) IU/L ALT (9-52) IU/L Alkaline Phosphatase (38-126) U/L Total Protein (6.3-8.2) g/dL Albumin (3.5-5.0) g/dL Globulin (1.7-4.1) g/dL Albumin/Globulin Ratio (1.0-2.8) Procalcitonin (<0.5) ng/mL Urine Color Urine Appearance Urine pH (4.5-8.0) Ur Specific [place] (1.000-1.035) Urine Protein (Negative) Urine Glucose (UA) (Normal) g/dL Urine Ketones (NEGATIVE) Urine Occult Blood (Negative) Urine Nitrate (Negative) Urine Bilirubin (NEGATIVE) Urine Urobilinogen (0.2) E.U./dL Ur Leukocyte Esterase (NEGATIVE) Urine RBC (0-5/HPF) Urine WBC (0-5/HPF) Ur Squamous Epith Cells Urine Bacteria (None) Ur Culture Indicated? Micro UA Comment Point of Care Testing Glucose POC 113 MDM Narrative Medical decision making narrative: CBC was obtained and shows mildly elevated white count of 11.9. H&H is 10 and 31. INR was 2.2. Discussed case with surgery Dr. Cam who evaluated patient who feels that patient either needs a debridement to the hematoma area or wound VAC. She recommended admission under hospitalist with surgery consulting. Contacted wound care who states will evaluate patient when she is up stairs. Discussed case with Dr. Hernandez hospitalist who accepted patient. Patient is admitted for further evaluation and treatment <Aliza Valdez MD - Last Filed: 04/15/18 07:40> Lab Data Lab Results 04/14/18 04/14/18 04/14/18 Range/Units 12:52 12:52 12:52 WBC 11.9 H (4.5-11.0) X10^3/uL RBC 3.44 L (4.0-5.2) X10^6/uL Hgb 10.0 L (12.0-16.0) g/dL Hct 31.2 L (36-46) % MCV 90.8 (80-100) fL MCH 29.1 (26-34) PG MCHC 32.1 (30-36) % RDW 15.1 H (11.6-14.8) % Plt Count 363 (150-400) X10^3/uL Neut % (Auto) 63.4 (50-75) % Lymph % (Auto) 14.9 L (25-40) % [place] % (Auto) 20.1 H (3-14) % Eos % (Auto) 1.1 L (2-4) % Baso % (Auto) 0.5 (0-2) % Neut # (Auto) 7600 H (9014-9704) /uL PT 24.8 H (10.1-12.7) SECONDS INR 2.2 H (0.9-1.3) APTT 44 H D (26.4-36.2) SECONDS Sodium 141 (137-145) mmol/L Potassium 4.6 (3.4-5.1) mmol/L Chloride 97 L (98-107) mmol/L Carbon Dioxide 34 H (22-32) mmol/L BUN 18 H (7-17) mg/dL Creatinine 0.80 (0.52-1.04) mg/dL Estimated GFR > 60.0 (>60) mL/min BUN/Creatinine Ratio 22.5 H (6-22) Glucose 179 H (80-110) mg/dL Lactate (0.7-2.1) mmol/L Calcium 9.1 (8.4-10.2) mg/dL Total Bilirubin 0.6 (0.2-1.3) mg/dL AST 25 (14-36) IU/L ALT 27 (9-52) IU/L Alkaline Phosphatase 91 (38-126) U/L Total Protein 8.1 (6.3-8.2) g/dL Albumin 4.0 (3.5-5.0) g/dL Globulin 4.1 (1.7-4.1) g/dL Albumin/Globulin Ratio 1.0 (1.0-2.8) Procalcitonin (<0.5) ng/mL Urine Color Urine Appearance Urine pH (4.5-8.0) Ur Specific [place] (1.000-1.035) Urine Protein (Negative) Urine Glucose (UA) (Normal) g/dL Urine Ketones (NEGATIVE) Urine Occult Blood (Negative) Urine Nitrate (Negative) Urine Bilirubin (NEGATIVE) Urine Urobilinogen (0.2) E.U./dL Ur Leukocyte Esterase (NEGATIVE) Urine RBC (0-5/HPF) Urine WBC (0-5/HPF) Ur Squamous Epith Cells Urine Bacteria (None) Ur Culture Indicated? Micro UA Comment 04/14/18 04/14/18 04/14/18 Range/Units 12:52 12:52 20:58 WBC 12.2 H (4.5-11.0) X10^3/uL RBC 3.35 L (4.0-5.2) X10^6/uL Hgb 9.8 L (12.0-16.0) g/dL Hct 30.2 L (36-46) % MCV 90.2 (80-100) fL MCH 29.3 (26-34) PG MCHC 32.5 (30-36) % RDW 15.3 H (11.6-14.8) % Plt Count 364 (150-400) X10^3/uL Neut % (Auto) 61.2 (50-75) % Lymph % (Auto) 19.7 L (25-40) % [place] % (Auto) 17.1 H (3-14) % Eos % (Auto) 1.3 L (2-4) % Baso % (Auto) 0.7 (0-2) % Neut # (Auto) 7400 H (7989-2094) /uL PT (10.1-12.7) SECONDS INR (0.9-1.3) APTT (26.4-36.2) SECONDS Sodium (137-145) mmol/L Potassium (3.4-5.1) mmol/L Chloride (98-107) mmol/L Carbon Dioxide (22-32) mmol/L BUN (7-17) mg/dL Creatinine (0.52-1.04) mg/dL Estimated GFR (>60) mL/min BUN/Creatinine Ratio (6-22) Glucose (80-110) mg/dL Lactate 1.9 (0.7-2.1) mmol/L Calcium (8.4-10.2) mg/dL Total Bilirubin (0.2-1.3) mg/dL AST (14-36) IU/L ALT (9-52) IU/L Alkaline Phosphatase (38-126) U/L Total Protein (6.3-8.2) g/dL Albumin (3.5-5.0) g/dL Globulin (1.7-4.1) g/dL Albumin/Globulin Ratio (1.0-2.8) Procalcitonin 0.25 (<0.5) ng/mL Urine Color Urine Appearance Urine pH (4.5-8.0) Ur Specific [place] (1.000-1.035) Urine Protein (Negative) Urine Glucose (UA) (Normal) g/dL Urine Ketones (NEGATIVE) Urine Occult Blood (Negative) Urine Nitrate (Negative) Urine Bilirubin (NEGATIVE) Urine Urobilinogen (0.2) E.U./dL Ur Leukocyte Esterase (NEGATIVE) Urine RBC (0-5/HPF) Urine WBC (0-5/HPF) Ur Squamous Epith Cells Urine Bacteria (None) Ur Culture Indicated? Micro UA Comment 04/14/18 04/15/18 04/15/18 Range/Units 20:58 00:45 06:19 WBC 11.4 H (4.5-11.0) X10^3/uL RBC 3.32 L (4.0-5.2) X10^6/uL Hgb 9.6 L (12.0-16.0) g/dL Hct 30.0 L (36-46) % MCV 90.5 (80-100) fL MCH 28.8 (26-34) PG MCHC 31.8 (30-36) % RDW 15.4 H (11.6-14.8) % Plt Count 360 (150-400) X10^3/uL Neut % (Auto) 56.0 (50-75) % Lymph % (Auto) 20.8 L (25-40) % [place] % (Auto) 21.3 H (3-14) % Eos % (Auto) 1.4 L (2-4) % Baso % (Auto) 0.5 (0-2) % Neut # (Auto) 6400 H (8542-4617) /uL PT (10.1-12.7) SECONDS INR (0.9-1.3) APTT (26.4-36.2) SECONDS Sodium 140 (137-145) mmol/L Potassium 4.3 (3.4-5.1) mmol/L Chloride 98 (98-107) mmol/L Carbon Dioxide 33 H (22-32) mmol/L BUN 16 (7-17) mg/dL Creatinine 0.80 (0.52-1.04) mg/dL Estimated GFR > 60.0 (>60) mL/min BUN/Creatinine Ratio 20.0 (6-22) Glucose 196 H (80-110) mg/dL Lactate (0.7-2.1) mmol/L Calcium 9.0 (8.4-10.2) mg/dL Total Bilirubin (0.2-1.3) mg/dL AST (14-36) IU/L ALT (9-52) IU/L Alkaline Phosphatase (38-126) U/L Total Protein (6.3-8.2) g/dL Albumin (3.5-5.0) g/dL Globulin (1.7-4.1) g/dL Albumin/Globulin Ratio (1.0-2.8) Procalcitonin (<0.5) ng/mL Urine Color Yellow Urine Appearance Clear Urine pH 7.0 (4.5-8.0) Ur Specific [place] 1.010 (1.000-1.035) Urine Protein Negative (Negative) Urine Glucose (UA) Negative (Normal) g/dL Urine Ketones Negative (NEGATIVE) Urine Occult Blood Trace-lysed (Negative) Urine Nitrate Negative (Negative) Urine Bilirubin Negative (NEGATIVE) Urine Urobilinogen 0.2 (0.2) E.U./dL Ur Leukocyte Esterase 2+ H (NEGATIVE) Urine RBC None seen (0-5/HPF) Urine WBC 10-30/hpf H (0-5/HPF) Ur Squamous Epith Cells 1-5 /hpf D Urine Bacteria Few (2-10) H (None) Ur Culture Indicated? Specimen cultured Micro UA Comment Not Reportable 04/15/18 04/15/18 Range/Units 06:19 06:19 WBC (4.5-11.0) X10^3/uL RBC (4.0-5.2) X10^6/uL Hgb (12.0-16.0) g/dL Hct (36-46) % MCV (80-100) fL MCH (26-34) PG MCHC (30-36) % RDW (11.6-14.8) % Plt Count (150-400) X10^3/uL Neut % (Auto) (50-75) % Lymph % (Auto) (25-40) % [place] % (Auto) (3-14) % Eos % (Auto) (2-4) % Baso % (Auto) (0-2) % Neut # (Auto) (1335-6786) /uL PT 17.6 H D (10.1-12.7) SECONDS INR 1.6 H (0.9-1.3) APTT (26.4-36.2) SECONDS Sodium 139 (137-145) mmol/L Potassium 4.4 (3.4-5.1) mmol/L Chloride 100 (98-107) mmol/L Carbon Dioxide 34 H (22-32) mmol/L BUN 15 (7-17) mg/dL Creatinine 0.80 (0.52-1.04) mg/dL Estimated GFR > 60.0 (>60) mL/min BUN/Creatinine Ratio 18.8 (6-22) Glucose 109 (80-110) mg/dL Lactate (0.7-2.1) mmol/L Calcium 8.9 (8.4-10.2) mg/dL Total Bilirubin (0.2-1.3) mg/dL AST (14-36) IU/L ALT (9-52) IU/L Alkaline Phosphatase (38-126) U/L Total Protein (6.3-8.2) g/dL Albumin (3.5-5.0) g/dL Globulin (1.7-4.1) g/dL Albumin/Globulin Ratio (1.0-2.8) Procalcitonin (<0.5) ng/mL Urine Color Urine Appearance Urine pH (4.5-8.0) Ur Specific [place] (1.000-1.035) Urine Protein (Negative) Urine Glucose (UA) (Normal) g/dL Urine Ketones (NEGATIVE) Urine Occult Blood (Negative) Urine Nitrate (Negative) Urine Bilirubin (NEGATIVE) Urine Urobilinogen (0.2) E.U./dL Ur Leukocyte Esterase (NEGATIVE) Urine RBC (0-5/HPF) Urine WBC (0-5/HPF) Ur Squamous Epith Cells Urine Bacteria (None) Ur Culture Indicated? Micro UA Comment Point of Care Testing Glucose POC 113 Discharge Plan Departure Patient Disposition: Admitted As Inpatient Clinical Impression: Hematoma of left lower extremity Discharge Date/Time: 04/14/18 17:57 Interventions: ED Discharge Assessment Last Done: 04/14/18 17:55 Admit Date/Time: 04/14/18 16:11 Admit Provider: Brooke Hernandez
--- NOTE | 2018-04-14 12:48 | PC.NURSE ---
Hematoma unwrapped, stasis noted except in most inferior corner where there is leaking of dark brown fluid. New 4x4 placed w/ netting over lay. + redness around hematoma w/ warmth. Pt unsure if it was like that prior to today. Denies increased pain.
[2018-04-14 13:01] LABS: Add Manual Diff / Slide Review NO; Basophils Percent Auto 0.5 % (0-2); Eosinophils Percent Auto 1.1 % (2-4); Hematocrit 31.2 % (36-46); Lymphocytes Percent Auto 14.9 % (25-40); Mean Corpuscular HGB Conc 32.1 % (30-36); Mean Corpuscular Hemoglobin 29.1 PG (26-34); Mean Corpuscular Volume 90.8 fL (80-100); Monocytes Percent Auto 20.1 % (3-14); Neutrophils Absolute Auto 7600 /uL (3000-5900); Neutrophils Percent Auto 63.4 % (50-75); Platelet Count 363 X10^3/uL (150-400); Red Blood Cell Count 3.44 X10^6/uL (4.0-5.2); Red Cell Distribution Width 15.1 % (11.6-14.8); White Blood Cell Count 11.9 X10^3/uL (4.5-11.0)
[2018-04-14 13:09] LABS: INR 2.2 (0.9-1.3); Prothrombin Time 24.8 SECONDS (10.1-12.7)
[2018-04-14 13:11] LABS: PTT Partial Thromboplastin Tim 44 SECONDS (26.4-36.2)
[2018-04-14 13:35] LABS: Alanine Aminotransferase 27 IU/L (9-52); Alkaline Phosphatase 91 U/L (38-126); Aspartate Aminotransferase 25 IU/L (14-36); BUN Creatinine Ratio 22.5 (6-22); Bilirubin Total 0.6 mg/dL (0.2-1.3); Blood Urea Nitrogen 18 mg/dL (7-17); Calcium 9.1 mg/dL (8.4-10.2); Carbon Dioxide 34 mmol/L (22-32); Chloride 97 mmol/L (98-107); Estimated Glomerular Filt Rate > 60.0 mL/min (>60); Globulin 4.1 g/dL (1.7-4.1); Glucose 179 mg/dL (80-110); HEMOLYSIS < 15 (0-50); Potassium 4.6 mmol/L (3.4-5.1); Sodium 141 mmol/L (137-145); Total Protein 8.1 g/dL (6.3-8.2)
[2018-04-14 13:36] LABS: Lactate (Lactic Acid) 1.9 mmol/L (0.7-2.1)
[2018-04-14 13:56] LABS: Procalcitonin 0.25 ng/mL (<0.5)
--- NOTE | 2018-04-14 16:07 | PC.NURSE ---
spoke with caregiver at [facility], updated her, pt is going to be admitted.
[2018-04-14] MEDS: OXYCODONE/ACETAMINOPHEN 5/325 TABLET 1 TAB PO (17:52)
--- NOTE | 2018-04-14 18:06 | PM.HP.1 ---
History of Present Illness Date Patient Seen: 04/14/18 Chief complaint: GLF Narrative: The patient is a 77-year-old female who was discharged to [facility] last week following a fall in which she suffered a hematoma of the left lower extremity. Patient is on Xarelto and aspirin. Her hematoma was large and indurated. Patient was evaluated by Orthopedic surgery during her hospital stay. Based on their evaluation at that time it was recommended that surgical debridement was not indicated. The patient was ultimately discharged back to the [facility]. Last evening the hematoma opened with significant bleeding and clots passing. She presented to the emergency department for evaluation. The wound is significantly worse. There is necrotic tissue. There is surrounding redness and warmth. The leg is not painful. It is continuing to ooze from an open area with clots passing. The patient was evaluated in the emergency department. She was seen by General surgery who recommended debridement followed by wound VAC. The wound clinic was able to evaluate her in the emergency department as well. They concurred with a plan for debridement followed by wound VAC placement. The patient has had no fever or chills. No nausea or vomiting. She has a chronic indwelling catheter. She is bed-bound and nonambulatory. She has no pain in the leg. She does have some redness and warmth. No sweating or chills. She has no shortness of breath or chest pain. The patient was seen and evaluated in the emergency room and admitted to the hospital for definitive treatment. Patient History Medical History Anemia (Acute) Anemia (Acute) Atherosclerotic heart disease (Acute) Atherosclerotic heart disease of [place] coronary artery without angina pectoris (Acute) Atrial fibrillation (Acute) Chronic kidney disease, stage 3 (Acute) Chronic pain syndrome (Acute) Chronic pain syndrome (Acute) Gastro-esophageal reflux disease without esophagitis (Acute) Hereditary and idiopathic neuropathy, unspecified (Acute) Hyperlipidemia (Acute) Hypertensive chronic kidney disease with stage 1 through stage 4 chronic kidney disease, or unspecified chronic kidney disease (Acute) Hypothyroidism (Acute) Insomnia (Acute) Insomnia (Acute) 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 (Acute) Major depressive disorder (Acute) Major depressive disorder (Acute) Morbid obesity due to excess calories (Acute) Obstructive sleep apnea (Acute) Obstructive sleep apnea (Acute) Type 2 diabetes mellitus (Acute) Urinary incontinence (Acute) Urinary incontinence (Acute) Venous insufficiency (chronic) (peripheral) (Acute) Venous insufficiency (chronic) (peripheral) (Acute) Wheelchair bound (Acute) Diabetes (Chronic) Gastroesophageal reflux disease (Chronic) Hypertension (Chronic) Hypothyroidism (Chronic) Obesity (Chronic) Surgical History History of bilateral knee replacement (Resolved) Family & Social History Family History: Reviewed 04/14/18 by Brooke Hernandez MD Social History: household members other Safety & Behavioral: Feels Safe in Current Yes Environment Been Physically Hurt or No Threatened By a Person Tobacco & Substance use: Smoking Status Never smoker alcohol intake never alcohol intake frequency holiday/special occasion Substance Use Type does not use Meds Home Medications Medication Instructions Recorded Confirmed Type bisacodyl 10 mg [place] PRN PRN #0 07/05/16 04/14/18 History hydroxyzine pamoate [Vistaril] 25 mg PO Q6HP PRN #0 07/05/16 04/14/18 History nitroglycerin [Nitrostat] 0.4 mg SUBLINGUAL PRN PRN #0 07/05/16 04/14/18 History diphenhydramine HCl [Benadryl 25 mg PO Q8HP PRN #0 04/08/17 04/14/18 History Allergy] ondansetron HCl 4 mg PO Q4HP PRN #0 04/08/17 04/14/18 History bisacodyl 10 mg PO PRN PRN 12/04/17 04/14/18 History nystatin 1 applic TOPICAL PRN PRN 12/04/17 04/14/18 History furosemide 40 mg PO DAILY PRN 04/02/18 04/14/18 History magnesium hydroxide [Milk of 30 ml PO PRN PRN 04/02/18 04/14/18 History Magnesia] sodium phosphates [Fleet Enema] 1 ea [place] PRN PRN 04/02/18 04/14/18 History acetaminophen 650 mg PO Q4H PRN MDD 3 g 04/03/18 04/14/18 History aripiprazole 2.5 mg PO DAILY 04/03/18 04/14/18 History aspirin [Aspir-Low] 81 mg PO DAILY 04/03/18 04/14/18 History atorvastatin 40 mg PO BEDTIME 04/03/18 04/14/18 History bupropion HCl 100 mg PO BID 04/03/18 04/14/18 History diltiazem HCl 240 mg PO DAILY 04/03/18 04/14/18 History docusate sodium 200 mg PO BID 04/03/18 04/14/18 History duloxetine 60 mg PO DAILY 04/03/18 04/14/18 History furosemide [Lasix] 20 mg PO DAILY 04/03/18 04/14/18 History gabapentin 800 mg PO TID 04/03/18 04/14/18 History hydroxyzine pamoate [Vistaril] 25 mg PO QID PRN 04/03/18 04/14/18 History lisinopril 10 mg PO BID 04/03/18 04/14/18 History mirabegron [Myrbetriq] 25 mg PO DAILY 04/03/18 04/14/18 History mirtazapine 15 mg PO BEDTIME 04/03/18 04/14/18 History multivitamin with iron-mineral 1 tab PO DAILY 04/03/18 04/14/18 History nortriptyline 25 mg PO BEDTIME 04/03/18 04/14/18 History oxycodone 10 mg PO Q6H PRN 04/03/18 04/14/18 History oxycodone [OxyContin] 20 mg PO Q12H 04/03/18 04/14/18 History pantoprazole 20 mg PO DAILY 04/03/18 04/14/18 History potassium chloride 10 meq PO DAILY 04/03/18 04/14/18 History rivaroxaban [Xarelto] 20 mg PO DAILY 04/03/18 04/14/18 History insulin glargine [Lantus Solostar 50 unit SUBCUT BID 30 Days #30 ml 04/08/18 04/14/18 Rx U-100 Insulin] acetaminophen 1,000 mg PO BID MDD 3 g 04/14/18 04/14/18 History amoxicillin-pot clavulanate 1 tab PO BIDX5 04/14/18 04/14/18 History [Augmentin] levothyroxine 88 mcg PO DAILY 04/14/18 04/14/18 History zinc oxide 1 applic TOPICAL TID 04/14/18 04/14/18 History Allergies Allergy/AdvReac Type Severity Reaction Status Date / Time adhesive [ADHESIVE] Allergy Mild ALLERGY TO Verified 12/05/17 14:53 TAPE Review of Systems Review of Systems All systems reviewed & are unremarkable except as noted in HPI and below Exam Vital Signs (past 8 hours): - 04/14/18 11:54 04/14/18 11:57 04/14/18 12:00 Temperature 98.8 F 98.8 F Pulse Rate 79 79 Pulse Rate [Left Dorsalis Pedis] 80 Respiratory Rate 20 20 Blood Pressure 189/62 H Blood Pressure [Left Wrist] 189/62 H Pulse Oximetry 92 92 04/14/18 12:30 04/14/18 13:06 04/14/18 14:00 Temperature Pulse Rate 78 79 80 Pulse Rate [Left Dorsalis Pedis] Respiratory Rate 18 18 18 Blood Pressure Blood Pressure [Left Wrist] 145/68 H 167/55 H 147/58 H Pulse Oximetry 93 94 98 04/14/18 14:51 04/14/18 15:10 04/14/18 17:11 Temperature Pulse Rate 80 78 Pulse Rate [Left Dorsalis Pedis] Respiratory Rate 14 Blood Pressure Blood Pressure [Left Wrist] 131/61 161/85 H 111/65 Pulse Oximetry 93 94 Oxygen Delivery Method Nasal Cannula Oxygen Flow Rate 1 Narrative Exam Narrative: Pleasant female in no acute distress HEENT: Normocephalic atraumatic, extraocular muscles are intact, oropharynx is clear, neck is supple Lungs: Clear to auscultation Cardiac exam: Irregularly irregular normal S1-S2 with a 2/6 systolic ejection murmur Abdomen: Obese soft and nontender Patient extremity: The left leg with a large erythematous area from the 2 cm below the knee to intermediate down the cohn. There is an open area about 2 cm with clot easily expressed. There is surrounding erythema and warmth. There is a large necrotic area of 5 x 7 cm anteriorly. The leg is warm. Neuro exam: Nonfocal Objective Labs Result Diagrams: 04/14/18 12:52 04/14/18 12:52 Labs: Laboratory Results - last 24 hr 04/14/18 04/14/18 04/14/18 12:52 12:52 12:52 WBC 11.9 H RBC 3.44 L Hgb 10.0 L Hct 31.2 L MCV 90.8 MCH 29.1 MCHC 32.1 RDW 15.1 H Plt Count 363 Neut % (Auto) 63.4 Lymph % (Auto) 14.9 L [place] % (Auto) 20.1 H Eos % (Auto) 1.1 L Baso % (Auto) 0.5 Neut # (Auto) 7600 H PT 24.8 H INR 2.2 H APTT 44 H D Sodium 141 Potassium 4.6 Chloride 97 L Carbon Dioxide 34 H BUN 18 H Creatinine 0.80 Estimated GFR > 60.0 BUN/Creatinine Ratio 22.5 H Glucose 179 H Lactate Calcium 9.1 Total Bilirubin 0.6 AST 25 ALT 27 Alkaline Phosphatase 91 Total Protein 8.1 Albumin 4.0 Globulin 4.1 Albumin/Globulin Ratio 1.0 Procalcitonin 04/14/18 04/14/18 12:52 12:52 WBC RBC Hgb Hct MCV MCH MCHC RDW Plt Count Neut % (Auto) Lymph % (Auto) [place] % (Auto) Eos % (Auto) Baso % (Auto) Neut # (Auto) PT INR APTT Sodium Potassium Chloride Carbon Dioxide BUN Creatinine Estimated GFR BUN/Creatinine Ratio Glucose Lactate 1.9 Calcium Total Bilirubin AST ALT Alkaline Phosphatase Total Protein Albumin Globulin Albumin/Globulin Ratio Procalcitonin 0.25 Assessment & Plan (1) Hematoma of left lower extremity: Problem details: Patient will be followed by the wound care center. General surgery has been consulted. Anticipate debridement on Saturday followed by wound VAC placement. Qualifiers: Encounter type: subsequent encounter Qualified Code(s): S80.12XD - Contusion of left lower leg, subsequent encounter Current visit: Yes Status: Acute (2) Major depression in partial remission: Problem details: Will continue usual antidepressant Current visit: No Status: Acute (3) Generalized anxiety disorder: Problem details: Patient will continue on her anti anxiolytics Current visit: No Status: Acute (4) Lower extremity cellulitis: Problem details: Will culture the wound and start her on IV ceftriaxone Current visit: No Status: Acute (5) Morbid obesity: Current visit: Yes Status: Acute (6) Diabetes mellitus: Problem details: Continue her usual insulin Current visit: Yes Status: Acute (7) Anemia: Problem details: Will follow her hematocrit closely. Will obtain iron studies and start iron if appropriate Current visit: Yes Status: Acute Plan: Assessment/Plan Narrative: Patient is DNR and will note that in her record accordingly in the dictation
--- NOTE | 2018-04-14 18:13 | P.HP_ITS ---
History of Present Illness Date Patient Seen: 04/14/18 Chief complaint: GLF Narrative: The patient is a 77-year-old female who was discharged to [facility] last week following a fall in which she suffered a hematoma of the left lower extremity. Patient is on Xarelto and aspirin. Her hematoma was large and indurated. Patient was evaluated by Orthopedic surgery during her hospital stay. Based on their evaluation at that time it was recommended that surgical debridement was not indicated. The patient was ultimately discharged back to the [facility]. Last evening the hematoma opened with significant bleeding and clots passing. She presented to the emergency department for evaluation. The wound is significantly worse. There is necrotic tissue. There is surrounding redness and warmth. The leg is not painful. It is continuing to ooze from an open area with clots passing. The patient was evaluated in the emergency department. She was seen by General surgery who recommended debridement followed by wound VAC. The wound clinic was able to evaluate her in the emergency department as well. They concurred with a plan for debridement followed by wound VAC placement. The patient has had no fever or chills. No nausea or vomiting. She has a chronic indwelling catheter. She is bed-bound and nonambulatory. She has no pain in the leg. She does have some redness and warmth. No sweating or chills. She has no shortness of breath or chest pain. The patient was seen and evaluated in the emergency room and admitted to the hospital for definitive treatment. Patient History Medical History Anemia (Acute) Anemia (Acute) Atherosclerotic heart disease (Acute) Atherosclerotic heart disease of [place] coronary artery without angina pectoris (Acute) Atrial fibrillation (Acute) Chronic kidney disease, stage 3 (Acute) Chronic pain syndrome (Acute) Chronic pain syndrome (Acute) Gastro-esophageal reflux disease without esophagitis (Acute) Hereditary and idiopathic neuropathy, unspecified (Acute) Hyperlipidemia (Acute) Hypertensive chronic kidney disease with stage 1 through stage 4 chronic kidney disease, or unspecified chronic kidney disease (Acute) Hypothyroidism (Acute) Insomnia (Acute) 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 (Acute) 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 (Acute) Major depressive disorder (Acute) Major depressive disorder (Acute) Morbid obesity due to excess calories (Acute) Obstructive sleep apnea (Acute) Obstructive sleep apnea (Acute) Type 2 diabetes mellitus (Acute) Urinary incontinence (Acute) Urinary incontinence (Acute) Venous insufficiency (chronic) (peripheral) (Acute) Venous insufficiency (chronic) (peripheral) (Acute) Wheelchair bound (Acute) Diabetes (Chronic) Gastroesophageal reflux disease (Chronic) Hypertension (Chronic) Hypothyroidism (Chronic) Obesity (Chronic) Surgical History History of bilateral knee replacement (Resolved) Family & Social History Family History: Reviewed 04/14/18 by Brooke Hernandez MD Social History: household members other Safety & Behavioral: Feels Safe in Current Yes Environment Been Physically Hurt or No Threatened By a Person Tobacco & Substance use: Smoking Status Never smoker alcohol intake never alcohol intake frequency holiday/special occasion Substance Use Type does not use Meds Home Medications Medication Instructions Recorded Confirmed Type bisacodyl 10 mg [place] PRN PRN #0 07/05/16 04/14/18 History hydroxyzine pamoate [Vistaril] 25 mg PO Q6HP PRN #0 07/05/16 04/14/18 History nitroglycerin [Nitrostat] 0.4 mg SUBLINGUAL PRN PRN #0 07/05/16 04/14/18 History diphenhydramine HCl [Benadryl 25 mg PO Q8HP PRN #0 04/08/17 04/14/18 History Allergy] ondansetron HCl 4 mg PO Q4HP PRN #0 04/08/17 04/14/18 History bisacodyl 10 mg PO PRN PRN 12/04/17 04/14/18 History nystatin 1 applic TOPICAL PRN PRN 12/04/17 04/14/18 History furosemide 40 mg PO DAILY PRN 04/02/18 04/14/18 History magnesium hydroxide [Milk of 30 ml PO PRN PRN 04/02/18 04/14/18 History Magnesia] sodium phosphates [Fleet Enema] 1 ea [place] PRN PRN 04/02/18 04/14/18 History acetaminophen 650 mg PO Q4H PRN MDD 3 g 04/03/18 04/14/18 History aripiprazole 2.5 mg PO DAILY 04/03/18 04/14/18 History aspirin [Aspir-Low] 81 mg PO DAILY 04/03/18 04/14/18 History atorvastatin 40 mg PO BEDTIME 04/03/18 04/14/18 History bupropion HCl 100 mg PO BID 04/03/18 04/14/18 History diltiazem HCl 240 mg PO DAILY 04/03/18 04/14/18 History docusate sodium 200 mg PO BID 04/03/18 04/14/18 History duloxetine 60 mg PO DAILY 04/03/18 04/14/18 History furosemide [Lasix] 20 mg PO DAILY 04/03/18 04/14/18 History gabapentin 800 mg PO TID 04/03/18 04/14/18 History hydroxyzine pamoate [Vistaril] 25 mg PO QID PRN 04/03/18 04/14/18 History lisinopril 10 mg PO BID 04/03/18 04/14/18 History mirabegron [Myrbetriq] 25 mg PO DAILY 04/03/18 04/14/18 History mirtazapine 15 mg PO BEDTIME 04/03/18 04/14/18 History multivitamin with iron-mineral 1 tab PO DAILY 04/03/18 04/14/18 History nortriptyline 25 mg PO BEDTIME 04/03/18 04/14/18 History oxycodone 10 mg PO Q6H PRN 04/03/18 04/14/18 History oxycodone [OxyContin] 20 mg PO Q12H 04/03/18 04/14/18 History pantoprazole 20 mg PO DAILY 04/03/18 04/14/18 History potassium chloride 10 meq PO DAILY 04/03/18 04/14/18 History rivaroxaban [Xarelto] 20 mg PO DAILY 04/03/18 04/14/18 History insulin glargine [Lantus Solostar 50 unit SUBCUT BID 30 Days #30 ml 04/08/18 Rx U-100 Insulin] acetaminophen 1,000 mg PO BID MDD 3 g 04/14/18 04/14/18 History amoxicillin-pot clavulanate 1 tab PO BIDX5 04/14/18 04/14/18 History [Augmentin] levothyroxine 88 mcg PO DAILY 04/14/18 04/14/18 History zinc oxide 1 applic TOPICAL TID 04/14/18 04/14/18 History Allergies Allergy/AdvReac Type Severity Reaction Status Date / Time adhesive [ADHESIVE] Allergy Mild ALLERGY TO Verified 12/05/17 14:53 TAPE Review of Systems Review of Systems All systems reviewed & are unremarkable except as noted in HPI and below Exam Vital Signs (past 8 hours): - 04/14/18 11:54 04/14/18 11:57 04/14/18 12:00 Temperature 98.8 F 98.8 F Pulse Rate 79 79 Pulse Rate [Left Dorsalis Pedis] 80 Respiratory Rate 20 20 Blood Pressure 189/62 H Blood Pressure [Left Wrist] 189/62 H Pulse Oximetry 92 92 04/14/18 12:30 04/14/18 13:06 04/14/18 14:00 Temperature Pulse Rate 78 79 80 Pulse Rate [Left Dorsalis Pedis] Respiratory Rate 18 18 18 Blood Pressure Blood Pressure [Left Wrist] 145/68 H 167/55 H 147/58 H Pulse Oximetry 93 94 98 04/14/18 14:51 04/14/18 15:10 04/14/18 17:11 Temperature Pulse Rate 80 78 Pulse Rate [Left Dorsalis Pedis] Respiratory Rate 14 Blood Pressure Blood Pressure [Left Wrist] 131/61 161/85 H 111/65 Pulse Oximetry 93 94 Oxygen Delivery Method Nasal Cannula Oxygen Flow Rate 1 Narrative Exam Narrative: Pleasant female in no acute distress HEENT: Normocephalic atraumatic, extraocular muscles are intact, oropharynx is clear, neck is supple Lungs: Clear to auscultation Cardiac exam: Irregularly irregular normal S1-S2 with a 2/6 systolic ejection murmur Abdomen: Obese soft and nontender Patient extremity: The left leg with a large erythematous area from the 2 cm below the knee to penitentiary down the cohn. There is an open area about 2 cm with clot easily expressed. There is surrounding erythema and warmth. There is a large necrotic area of 5 x 7 cm anteriorly. The leg is warm. Neuro exam: Nonfocal Objective Labs Result Diagrams: 04/14/18 12:52 04/14/18 12:52 Labs: Laboratory Results - last 24 hr 04/14/18 04/14/18 04/14/18 12:52 12:52 12:52 WBC 11.9 H RBC 3.44 L Hgb 10.0 L Hct 31.2 L MCV 90.8 MCH 29.1 MCHC 32.1 RDW 15.1 H Plt Count 363 Neut % (Auto) 63.4 Lymph % (Auto) 14.9 L [place] % (Auto) 20.1 H Eos % (Auto) 1.1 L Baso % (Auto) 0.5 Neut # (Auto) 7600 H PT 24.8 H INR 2.2 H APTT 44 H D Sodium 141 Potassium 4.6 Chloride 97 L Carbon Dioxide 34 H BUN 18 H Creatinine 0.80 Estimated GFR > 60.0 BUN/Creatinine Ratio 22.5 H Glucose 179 H Lactate Calcium 9.1 Total Bilirubin 0.6 AST 25 ALT 27 Alkaline Phosphatase 91 Total Protein 8.1 Albumin 4.0 Globulin 4.1 Albumin/Globulin Ratio 1.0 Procalcitonin 04/14/18 04/14/18 12:52 12:52 WBC RBC Hgb Hct MCV MCH MCHC RDW Plt Count Neut % (Auto) Lymph % (Auto) [place] % (Auto) Eos % (Auto) Baso % (Auto) Neut # (Auto) PT INR APTT Sodium Potassium Chloride Carbon Dioxide BUN Creatinine Estimated GFR BUN/Creatinine Ratio Glucose Lactate 1.9 Calcium Total Bilirubin AST ALT Alkaline Phosphatase Total Protein Albumin Globulin Albumin/Globulin Ratio Procalcitonin 0.25 Assessment & Plan (1) Hematoma of left lower extremity: Problem details: Patient will be followed by the wound care center. General surgery has been consulted. Anticipate debridement on Saturday followed by wound VAC placement. Qualifiers: Encounter type: subsequent encounter Qualified Code(s): S80.12XD - Contusion of left lower leg, subsequent encounter Current visit: Yes Status: Acute (2) Major depression in partial remission: Problem details: Will continue usual antidepressant Current visit: No Status: Acute (3) Generalized anxiety disorder: Problem details: Patient will continue on her anti anxiolytics Current visit: No Status: Acute (4) Lower extremity cellulitis: Problem details: Will culture the wound and start her on IV ceftriaxone Current visit: No Status: Acute (5) Morbid obesity: Current visit: Yes Status: Acute (6) Diabetes mellitus: Problem details: Continue her usual insulin Current visit: Yes Status: Acute (7) Anemia: Problem details: Will follow her hematocrit closely. Will obtain iron studies and start iron if appropriate Current visit: Yes Status: Acute Plan: Assessment/Plan Narrative: Patient is DNR and will note that in her record accordingly in the dictation
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
[2018-04-14] MEDS: SODIUM CHLORIDE 0.45% 1,000 ML 84 ML IV (20:00)
[2018-04-14] MEDS: CEFTRIAXONE 2 GM/50 ML FROZ.PIGGY IV (20:01)
[2018-04-14 21:09] LABS: Add Manual Diff / Slide Review NO; Basophils Percent Auto 0.7 % (0-2); Eosinophils Percent Auto 1.3 % (2-4); Hematocrit 30.2 % (36-46); Hemoglobin 9.8 g/dL (12.0-16.0); Lymphocytes Percent Auto 19.7 % (25-40); Mean Corpuscular HGB Conc 32.5 % (30-36); Mean Corpuscular Hemoglobin 29.3 PG (26-34); Mean Corpuscular Volume 90.2 fL (80-100); Monocytes Percent Auto 17.1 % (3-14); Neutrophils Absolute Auto 7400 /uL (3000-5900); Neutrophils Percent Auto 61.2 % (50-75); Platelet Count 364 X10^3/uL (150-400); Red Blood Cell Count 3.35 X10^6/uL (4.0-5.2); Red Cell Distribution Width 15.3 % (11.6-14.8); White Blood Cell Count 12.2 X10^3/uL (4.5-11.0)
[2018-04-14 21:25] LABS: Blood Urea Nitrogen 16 mg/dL (7-17); Carbon Dioxide 33 mmol/L (22-32); Chloride 98 mmol/L (98-107); Estimated Glomerular Filt Rate > 60.0 mL/min (>60); Glucose 196 mg/dL (80-110); HEMOLYSIS < 15 (0-50); Potassium 4.3 mmol/L (3.4-5.1); Sodium 140 mmol/L (137-145)
[2018-04-14] MEDS: ATORVASTATIN 20 MG TABLET 40 MG PO (21:34)
[2018-04-14] MEDS: LISINOPRIL 10 MG TABLET PO (21:35)
[2018-04-14] MEDS: DOCUSATE 100 MG CAPSULE PO (21:35)
[2018-04-14] MEDS: GABAPENTIN 400 MG CAPSULE 800 MG PO (21:35)
[2018-04-14] MEDS: SENNOSIDES 8.6 MG TABLET 17.2 MG PO (21:35)
[2018-04-14] MEDS: INSULIN GLARGINE 100 UNIT/ML 3ML PEN 50 UNIT SUBCUT (21:37)
[2018-04-14] MEDS: buPROPion 100 MG TABLET PO (21:37)
[2018-04-14] MEDS: INSULIN ASPART 100 UNIT/ML INSULN PEN SUBCUT (21:38)
[2018-04-14] MEDS: OXYCODONE ER 10 MG TAB 20 MG PO (21:48)
[2018-04-14] MEDS: MIRTAZAPINE 15 MG TABLET PO (21:48)
[2018-04-15] VITALS (12 sets, daily range): BP systolic 117–145; BP diastolic 58–91; PULSE 62–83; RESP 14–18; TEMP 36.3–36.7; O2SAT 93–98
[2018-04-15 01:11] LABS: RBC Urine None Seen (0-5/HPF)
--- NOTE | 2018-04-15 01:21 | PC.NURSE ---
1900- pt arrived to [id number] from ED via bed. A/O x3, 95% RA, LS diminished to increased adiposity. Pain 09/03, received percocet in ED. Left lower leg with large hematoma, with a 1 inch diameter open hole which is oozing dark red thick blood, cleaned, 4x4 gauze drsg with mesh overlay for securement. Venous stasis to leg with what appears to be healing blisters. Bottom of left foot appears to be a blood blister covered with callus. Plan is for IV ABO's, surgery for an I/D, followed with a wound vac. 1/2 NS with ABO infusing to LAC. Scheduled oxycodone 10mg BID effective for pain. Wound culture obtained @ 44 and sent to lab along with a urine analysis. Order in for bariactric bed. CBG @ given 2 units insulin per SS. Call light in reach and bed alarm on.
[2018-04-15 01:54] LABS: Appearance Urine UA CLEAR; Bilirubin Urine UA NEGATIVE (NEGATIVE); Color Urine UA YELLOW; Glucose Urine UA NEGATIVE (Normal); Ketones Urine UA NEGATIVE (NEGATIVE); Leukocyte Esterase Urine UA 2+ (NEGATIVE); Nitrite Urine UA NEGATIVE (Negative); Occult Blood Urine UA TRACE-LYSED (Negative); Protein Urine UA NEGATIVE (Negative); Urobilinogen Urine UA 0.2 E.U./dL (0.2)
[2018-04-15 02:26] LABS: Squamous Epithelial Cell Urine 1-5 /HPF; WBC Urine 10-30/HPF (0-5/HPF)
[2018-04-15 02:27] LABS: Bacteria Urine Few (2-10); Culture Indicated Urine Specimen Cultured
--- NOTE | 2018-04-15 03:58 | PC.NURSE ---
Addendum entered by Iva Restrepo R.N. 04/15/18 05:59: Patient has slept most of shift. Dressing intact to left lower extremity. O2 sat 97% while asleep so oxygen decreased to 0.5L/min. Original Note: 0200 Patient is alert and oriented. Breath sounds diminished; at shift change was 86% on RA so O2 started per MLA at 1L/min per NC and sat now at 95%. HRR. Denies nausea. BT present and abdomen is soft. Indwelling catheter is patient with clear hedy urine in bag; admitted with catheter which was placed due to hx sacral wound. Attempted to turn patient to assess posterior skin condition but unable to turn far enough to side due to limitations of bed and patient weight so will need to assess when bariatric bed (ordered on evening shift) arrives and patient is transferred into that bed. Has venous stasis bilateral LE. Large hematoma on left medial lower leg with 1 open area draining sanguinous fluid. Bandaid to anterior left ankle; patient states there is blister from previous fall. Calloused area on plantar surface of right foot below great toe. History of recent fall so fall risk score is high and bed alarm is activated
[2018-04-15] MEDS: LEVOTHYROXINE 88 MCG TABLET PO (06:27)
[2018-04-15] MEDS: PANTOPRAZOLE 20 MG TABLET PO (06:30)
[2018-04-15 06:40] LABS: Add Manual Diff / Slide Review NO; Basophils Percent Auto 0.5 % (0-2); Eosinophils Percent Auto 1.4 % (2-4); Hemoglobin 9.6 g/dL (12.0-16.0); Lymphocytes Percent Auto 20.8 % (25-40); Mean Corpuscular HGB Conc 31.8 % (30-36); Mean Corpuscular Hemoglobin 28.8 PG (26-34); Mean Corpuscular Volume 90.5 fL (80-100); Monocytes Percent Auto 21.3 % (3-14); Neutrophils Absolute Auto 6400 /uL (3000-5900); Platelet Count 360 X10^3/uL (150-400); Red Blood Cell Count 3.32 X10^6/uL (4.0-5.2); Red Cell Distribution Width 15.4 % (11.6-14.8); White Blood Cell Count 11.4 X10^3/uL (4.5-11.0)
[2018-04-15 06:46] LABS: INR 1.6 (0.9-1.3); Prothrombin Time 17.6 SECONDS (10.1-12.7)
[2018-04-15 06:50] LABS: BUN Creatinine Ratio 18.8 (6-22); Blood Urea Nitrogen 15 mg/dL (7-17); Calcium 8.9 mg/dL (8.4-10.2); Carbon Dioxide 34 mmol/L (22-32); Chloride 100 mmol/L (98-107); Estimated Glomerular Filt Rate > 60.0 mL/min (>60); Glucose 109 mg/dL (80-110); HEMOLYSIS < 15 (0-50); Potassium 4.4 mmol/L (3.4-5.1); Sodium 139 mmol/L (137-145)
[2018-04-15] MEDS: ARIPiprazole 10 MG TABLET 2.5 MG PO (10:09)
[2018-04-15] MEDS: dilTIAZem CD 240 MG CAP PO (10:10)
[2018-04-15] MEDS: DOCUSATE 100 MG CAPSULE PO ×2 (10:11→20:57)
[2018-04-15] MEDS: DULOXETINE 30 MG CAPSULE 60 MG PO (10:11)
[2018-04-15] MEDS: GABAPENTIN 400 MG CAPSULE 800 MG PO ×3 (10:11→20:57)
[2018-04-15] MEDS: INSULIN GLARGINE 100 UNIT/ML 3ML PEN 50 UNIT SUBCUT ×2 (10:12→21:02)
[2018-04-15] MEDS: LISINOPRIL 10 MG TABLET PO ×2 (10:15→20:57)
[2018-04-15] MEDS: OXYCODONE ER 10 MG TAB 20 MG PO ×2 (10:25→23:36)
[2018-04-15] MEDS: SODIUM CHLORIDE 0.45% 1,000 ML 84 ML IV (11:50)
--- NOTE | 2018-04-15 12:19 | P.PN_ITS ---
Subjective Date Patient Seen: 04/15/18 Interval history: Patient denies pain, no further major bleeding from leg. She feels constipated now Exam Vital Signs (past 8 hours): - 04/15/18 05:00 04/15/18 05:56 04/15/18 07:30 Temperature 97.3 F L Pulse Rate 62 Respiratory Rate 16 Blood Pressure 117/58 L Pulse Oximetry 95 97 98 04/15/18 08:00 04/15/18 08:10 Temperature 97.4 F L Pulse Rate 63 Respiratory Rate 18 Blood Pressure 145/80 H Pulse Oximetry 95 95 Oxygen Delivery Method Room Air Oxygen Flow Rate 1 Narrative Exam Narrative: Pleasant female in No Acute Distress Lungs: Clear to auscultation CV: irregularly, irregular, nl Sl S2 Abd: obese, soft/ non tender/ non distended Ext: Left leg with large necrotic base, open wound with scant oozing, erythema and warmth half way up and down leg Objective Labs Result Diagrams: 04/15/18 06:19 04/15/18 06:19 Labs: Laboratory Results - last 24 hr 04/14/18 04/14/18 04/14/18 12:52 12:52 12:52 WBC 11.9 H RBC 3.44 L Hgb 10.0 L Hct 31.2 L MCV 90.8 MCH 29.1 MCHC 32.1 RDW 15.1 H Plt Count 363 Neut % (Auto) 63.4 Lymph % (Auto) 14.9 L [place] % (Auto) 20.1 H Eos % (Auto) 1.1 L Baso % (Auto) 0.5 Neut # (Auto) 7600 H PT 24.8 H INR 2.2 H APTT 44 H D Sodium 141 Potassium 4.6 Chloride 97 L Carbon Dioxide 34 H BUN 18 H Creatinine 0.80 Estimated GFR > 60.0 BUN/Creatinine Ratio 22.5 H Glucose 179 H Lactate Calcium 9.1 Total Bilirubin 0.6 AST 25 ALT 27 Alkaline Phosphatase 91 Total Protein 8.1 Albumin 4.0 Globulin 4.1 Albumin/Globulin Ratio 1.0 Procalcitonin Urine Color Urine Appearance Urine pH Ur Specific [place] Urine Protein Urine Glucose (UA) Urine Ketones Urine Occult Blood Urine Nitrate Urine Bilirubin Urine Urobilinogen Ur Leukocyte Esterase Urine RBC Urine WBC Ur Squamous Epith Cells Urine Bacteria Ur Culture Indicated? Micro UA Comment 04/14/18 04/14/1818 12:52 12:52 20:58 WBC 12.2 H RBC 3.35 L Hgb 9.8 L Hct 30.2 L MCV 90.2 MCH 29.3 MCHC 32.5 RDW 15.3 H Plt Count 364 Neut % (Auto) 61.2 Lymph % (Auto) 19.7 L [place] % (Auto) 17.1 H Eos % (Auto) 1.3 L Baso % (Auto) 0.7 Neut # (Auto) 7400 H PT INR APTT Sodium Potassium Chloride Carbon Dioxide BUN Creatinine Estimated GFR BUN/Creatinine Ratio Glucose Lactate 1.9 Calcium Total Bilirubin AST ALT Alkaline Phosphatase Total Protein Albumin Globulin Albumin/Globulin Ratio Procalcitonin 0.25 Urine Color Urine Appearance Urine pH Ur Specific [place] Urine Protein Urine Glucose (UA) Urine Ketones Urine Occult Blood Urine Nitrate Urine Bilirubin Urine Urobilinogen Ur Leukocyte Esterase Urine RBC Urine WBC Ur Squamous Epith Cells Urine Bacteria Ur Culture Indicated? Micro UA Comment 04/14/18 04/15/18 04/15/18 20:58 00:45 06:19 WBC 11.4 H RBC 3.32 L Hgb 9.6 L Hct 30.0 L MCV 90.5 MCH 28.8 MCHC 31.8 RDW 15.4 H Plt Count 360 Neut % (Auto) 56.0 Lymph % (Auto) 20.8 L [place] % (Auto) 21.3 H Eos % (Auto) 1.4 L Baso % (Auto) 0.5 Neut # (Auto) 6400 H PT INR APTT Sodium 140 Potassium 4.3 Chloride 98 Carbon Dioxide 33 H BUN 16 Creatinine 0.80 Estimated GFR > 60.0 BUN/Creatinine Ratio 20.0 Glucose 196 H Lactate Calcium 9.0 Total Bilirubin AST ALT Alkaline Phosphatase Total Protein Albumin Globulin Albumin/Globulin Ratio Procalcitonin Urine Color Yellow Urine Appearance Clear Urine pH 7.0 Ur Specific [place] 1.010 Urine Protein Negative Urine Glucose (UA) Negative Urine Ketones Negative Urine Occult Blood Trace-lysed Urine Nitrate Negative Urine Bilirubin Negative Urine Urobilinogen 0.2 Ur Leukocyte Esterase 2+ H Urine RBC None seen Urine WBC 10-30/hpf H Ur Squamous Epith Cells 1-5 /hpf D Urine Bacteria Few (2-10) H Ur Culture Indicated? Specimen cultured Micro UA Comment Not Reportable 04/15/18 04/15/18 06:19 06:19 WBC RBC Hgb Hct MCV MCH MCHC RDW Plt Count Neut % (Auto) Lymph % (Auto) [place] % (Auto) Eos % (Auto) Baso % (Auto) Neut # (Auto) PT 17.6 H D INR 1.6 H APTT Sodium 139 Potassium 4.4 Chloride 100 Carbon Dioxide 34 H BUN 15 Creatinine 0.80 Estimated GFR > 60.0 BUN/Creatinine Ratio 18.8 Glucose 109 Lactate Calcium 8.9 Total Bilirubin AST ALT Alkaline Phosphatase Total Protein Albumin Globulin Albumin/Globulin Ratio Procalcitonin Urine Color Urine Appearance Urine pH Ur Specific [place] Urine Protein Urine Glucose (UA) Urine Ketones Urine Occult Blood Urine Nitrate Urine Bilirubin Urine Urobilinogen Ur Leukocyte Esterase Urine RBC Urine WBC Ur Squamous Epith Cells Urine Bacteria Ur Culture Indicated? Micro UA Comment Assessment & Plan (1) Hematoma of left lower extremity: Problem details: Patient will be followed by the wound care center. General surgery has been consulted. Anticipate debridement on Saturday followed by wound VAC placement. Qualifiers: Encounter type: subsequent encounter Qualified Code(s): S80.12XD - Contusion of left lower leg, subsequent encounter Current visit: Yes Status: Acute (2) Diabetes mellitus: Problem details: Continue her usual insulin Current visit: Yes Status: Acute (3) Morbid obesity: Current visit: Yes Status: Acute (4) Anemia: Problem details: Will follow her hematocrit closely. Will obtain iron studies and start iron if appropriate Current visit: Yes Status: Acute (5) Cellulitis: Problem details: Continue IV antbiotics now. Plan to switch to po at discharge Current visit: Yes Status: Acute Plan: Assessment/Plan Narrative: Continue IV antibiotics. She will have a midline placed. Likely can switch to po antibiotics after wound vac in place Start bowel regimen
[2018-04-15] MEDS: INSULIN ASPART 100 UNIT/ML INSULN PEN SUBCUT ×2 (13:44→16:15)
--- NOTE | 2018-04-15 13:44 | DI.RAD.S_ITS ---
PROCEDURE: XR CHEST FOR PICC 1V INDICATIONS: [facility], 17:21. FINDINGS: PICC was placed by the intravenous therapy team from the left side. Fluoroscopic spot film demonstrates tip of PICC in the SVC. Bilateral interstitial prominence. IMPRESSION: Tip of PICC lies within the SVC. Dictated by: Neil Narvaez M.D. on 04/15/2018 at 14:29 Approved by: Neil Narvaez M.D. on 04/15/2018 at 14:29
--- NOTE | 2018-04-15 14:34 | PC.NURSE ---
Skin: Bariatric bed has been ordered and here. Pt is currently getting a PIC line placed. Will exchange beds when complete. Pt reports pain is in control w/scheduled oxycontin. She has some frustration with the current situation, here and then d/c and then back again. At least leg no longer feels painful since it has been open and weeping fluid. Denies any other concerns. Cont w/poc.
[2018-04-15] MEDS: buPROPion 100 MG TABLET PO ×2 (14:40→20:56)
[2018-04-15] MEDS: CEFTRIAXONE 2 GM/50 ML FROZ.PIGGY IV (16:14)
--- NOTE | 2018-04-15 16:51 | P.PN_ITS ---
Subjective Date Patient Seen: 04/15/18 Time Patient Seen: 16:49 Interval history: Katharine is in good spirits today. I reviewed her vascular study and there is no clot in her leg. She says her leg isn't hurting but she is anxious to get rid of the ?ugly mess?. Exam Vital Signs (past 8 hours): - 04/15/18 12:00 04/15/18 16:00 Temperature 98.0 F 98.0 F Pulse Rate 83 64 Respiratory Rate 14 17 Blood Pressure 144/87 H 141/67 H Pulse Oximetry 93 93 Oxygen Delivery Method Room Air Oxygen Flow Rate 1 Narrative Exam Narrative: Appearance of the wound is essentially unchanged. Erythema is the same. Perhaps less bloody drainage. Objective Labs Result Diagrams: 04/15/18 06:19 04/15/18 06:19 Labs: Laboratory Results - last 24 hr 04/14/18 04/14/18 04/15/18 20:58 20:58 00:45 WBC 12.2 H RBC 3.35 L Hgb 9.8 L Hct 30.2 L MCV 90.2 MCH 29.3 MCHC 32.5 RDW 15.3 H Plt Count 364 Neut % (Auto) 61.2 Lymph % (Auto) 19.7 L [place] % (Auto) 17.1 H Eos % (Auto) 1.3 L Baso % (Auto) 0.7 Neut # (Auto) 7400 H PT INR Sodium 140 Potassium 4.3 Chloride 98 Carbon Dioxide 33 H BUN 16 Creatinine 0.80 Estimated GFR > 60.0 BUN/Creatinine Ratio 20.0 Glucose 196 H Calcium 9.0 Urine Color Yellow Urine Appearance Clear Urine pH 7.0 Ur Specific [place] 1.010 Urine Protein Negative Urine Glucose (UA) Negative Urine Ketones Negative Urine Occult Blood Trace-lysed Urine Nitrate Negative Urine Bilirubin Negative Urine Urobilinogen 0.2 Ur Leukocyte Esterase 2+ H Urine RBC None seen Urine WBC 10-30/hpf H Ur Squamous Epith Cells 1-5 /hpf D Urine Bacteria Few (2-10) H Ur Culture Indicated? Specimen cultured Micro UA Comment Not Reportable 04/15/18 04/15/18 04/15/18 06:19 06:19 06:19 WBC 11.4 H RBC 3.32 L Hgb 9.6 L Hct 30.0 L MCV 90.5 MCH 28.8 MCHC 31.8 RDW 15.4 H Plt Count 360 Neut % (Auto) 56.0 Lymph % (Auto) 20.8 L [place] % (Auto) 21.3 H Eos % (Auto) 1.4 L Baso % (Auto) 0.5 Neut # (Auto) 6400 H PT 17.6 H D INR 1.6 H Sodium 139 Potassium 4.4 Chloride 100 Carbon Dioxide 34 H BUN 15 Creatinine 0.80 Estimated GFR > 60.0 BUN/Creatinine Ratio 18.8 Glucose 109 Calcium 8.9 Urine Color Urine Appearance Urine pH Ur Specific [place] Urine Protein Urine Glucose (UA) Urine Ketones Urine Occult Blood Urine Nitrate Urine Bilirubin Urine Urobilinogen Ur Leukocyte Esterase Urine RBC Urine WBC Ur Squamous Epith Cells Urine Bacteria Ur Culture Indicated? Micro UA Comment Assessment & Plan Plan: Assessment/Plan Narrative: Plan for debridement tomorrow afternoon. If an opening occurs in the schedule I would like to do it earlier than planned but it is on the schedule for 330. [address] a damp to dry dressing at the time of the debridement and hopefully we can start a healthy granulation bed and get her ready for wound VAC. I discussed these things with an including the risks and benefits and she has expressed a desire to complete the procedure tomorrow. She is NPO after midnight except for meds.
[2018-04-15] MEDS: ATORVASTATIN 20 MG TABLET 40 MG PO (20:56)
[2018-04-15] MEDS: SENNOSIDES 8.6 MG TABLET 17.2 MG PO (21:00)
[2018-04-15] MEDS: MIRTAZAPINE 15 MG TABLET PO (23:36)
--- NOTE | 2018-04-15 23:46 | PC.NURSE ---
Pt in bariatric bed and comfortable. A/O x3, 94$ 1L nc, Amrita lift to BSC x2 for lg BM. Bottom dark red/purple no open wounds noted, CDI. LLL wound drsg changed gauze and mesh overlay. Scheduled @ 1630 for I&D surgery tomorrow, 04/16. KELLEY PICC placed AMZ shift and infusing NS @ 84. CBG 144 and 161. Telemetry; A-fib CVR both readings. BT+, denies nausea. Call light in reach.
[2018-04-16] VITALS (20 sets, daily range): BP systolic 123–173; BP diastolic 52–76; PULSE 60–74; RESP 12–71; TEMP 36.3–37.3; O2SAT 90–100; BMI 54.3
--- NOTE | 2018-04-16 01:32 | PC.NURSE ---
Addendum entered by Iva Restrepo R.N. 04/16/18 06:55: Slept well most of shift. Has been repositioned q2h. NPO since 0000. Original Note: Addendum entered by Iva Restrepo R.N. 04/16/18 03:18: Sats down to 89% while asleep so O2 restarted at 1L/min and sat back to 92% Original Note: Patient is alert and oriented although responses can be delayed. Breath sounds diminished but auscultation affected by body mass; RA sat 92%. HR irregular with tele reading of afib CVR. Denies nausea. BT present and abdomen is soft. Indwelling catheter is patent; chronic for hx of sacral wound. Unable to turn self so staff need to reposition q2h. Denies pain. Dressing to left leg is CDI. Foul odor noted from leg wound. 2+ bilateral foot edema. Venous stasis bilateral LE. Fall risk score is high and chair alarm place. Patient in bariatric bed.
[2018-04-16] MEDS: SODIUM CHLORIDE 0.45% 1,000 ML 84 ML IV ×2 (03:33→18:23)
[2018-04-16] MEDS: OXYCODONE ER 10 MG TAB 20 MG PO ×2 (08:58→21:30)
[2018-04-16] MEDS: LEVOTHYROXINE 88 MCG TABLET PO (08:59)
[2018-04-16] MEDS: DULOXETINE 30 MG CAPSULE 60 MG PO (08:59)
[2018-04-16] MEDS: GABAPENTIN 400 MG CAPSULE 800 MG PO ×2 (08:59→21:30)
[2018-04-16] MEDS: PANTOPRAZOLE 20 MG TABLET PO (08:59)
[2018-04-16] MEDS: ARIPiprazole 10 MG TABLET 2.5 MG PO (09:00)
[2018-04-16] MEDS: buPROPion 100 MG TABLET PO ×2 (09:00→21:30)
[2018-04-16] MEDS: dilTIAZem CD 240 MG CAP PO (09:00)
[2018-04-16] MEDS: DOCUSATE 100 MG CAPSULE PO ×2 (09:00→21:30)
[2018-04-16] MEDS: LISINOPRIL 10 MG TABLET PO ×2 (09:01→21:30)
--- NOTE | 2018-04-16 11:32 | CM.DANOTE ---
DCP/continued: Reviewed chart. Attempted to meet with patient this AM to introduce role and discuss d/c planning. Patient asleep at time of visit. Spoke with Yaritza at [facility] and she confirms that they can accept patient back when medically stable. Yaritza aware that patient most likely will need wound vac. Left vm with patient's spouse/Kaila requesting return phone call re: d/c planning. P: Anticipate return to [facility] when medically stable. Need to confirm plan with patient and spouse when medically appropriate to do so. VM left with spouse. NEEL Fletcher Discharge Planning/Care Management CM Discharge Assessment Start: 04/15/18 13:06 Freq: Status: Active Protocol: Document 04/15/18 13:06 KJS (Rec: 04/15/18 13:24 KJS [id number]) Discharge Planning Assessment Assigned Policy Officer NEEL Fletcher Contact Information Kaila Danielson (spouse) [phone] Advance Directives? Yes: POLST Advance Directives on File Yes History Provided By Patient Medical Record Has Patient been admitted in last 30 Yes days? Comment Patient admitted from [facility]. Patient discharged from [facility] on 04-08-18. Prior Living Arrangements 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 Facility Household Members spouse other Facility Name Admitted From: [facility] Willing to Return to Facility? Unsure at this time. Patient off of floor at time of visit. Independent with ADL's No Needs Assistance With Bathing Grooming Meal Prep Managing Medications Caregiver for Another No Comment uses a bariatric motorized w/c . Current wt: 363 lbs Patient/Family Preference [facility] Facility Barriers to Discharge No Comment Attempted to meet with patient today to introduce role and discuss d/c planning. Per MD, in AM rounds patient scheduled for I&D today with Dr. Cam. It is anticipated that patient will have wound vac at time of d/c. LITIGATION ASSOCIATE spoke with Yaritza at [facility] and they report that patient can return when she is medically stable. Discharge Plan [facility] Facility Transportation Arrangement Pending Referrals Initiated [facility] If patient plan is SNF: Has PASSR been No: Not needed if returns to completed? [facility]. Comment Reviewed chart. Patient admitted to [facility]. from [facility] after fall secondary to hematoma? Attempted to meet with patient but she if off the floor for I&D. It is expected she will have wound vac. CM team to meet patient in person to discuss d/c planning and return to [facility] when she is medically stable. Review Status In Process Please Provide Date Initial DC 04/15/18 Assessment Was Performed Next Review Type Continued Stay Review
--- NOTE | 2018-04-16 13:15 | PM.PN.1 ---
Subjective Date Patient Seen: 04/16/18 Time Patient Seen: 13:16 Interval history: Follow-up on left leg hematoma with necrotic ulcers and left lower extremity cellulitis Patient seen at bedside. No acute overnight events. Pain is well controlled. No nausea or vomiting overnight. Patient is scheduled to go for debridement today with subsequent wound VAC in 2 days. Exam Vital Signs (past 8 hours): - 04/16/18 07:45 04/16/18 07:50 04/16/18 08:55 Temperature 97.7 F Pulse Rate 65 64 Respiratory Rate 14 16 Blood Pressure 128/73 143/75 H Pulse Oximetry 98 97 97 04/16/18 11:30 Temperature 97.9 F Pulse Rate 71 Respiratory Rate 14 Blood Pressure 134/66 Pulse Oximetry 94 Oxygen Delivery Method Nasal Cannula Oxygen Flow Rate 1 Narrative Exam Narrative: General: No acute distress, A/O x3 HEENT: PERRLA bilaterally Neck: Supple, obese short CV: Regular rate rhythm, no murmurs Respiratory: CTA bilaterally, no wheezing or crackles noted but examination is limited due to body habitus GI: Obese, positive bowel sounds, no organomegaly Musculoskeletal: Left lower extremity hematoma with losing fresh blood, bandaged. Skin: Bilateral stasis dermatitis Neuro: No focal deficits Psych: Mood is appropriate Objective Labs Result Diagrams: 04/15/18 06:19 04/15/18 06:19 Assessment & Plan Plan: Assessment/Plan Narrative: 1. Hematoma of left lower extremity -patient is scheduled to go for debridement today, with subsequent wound VAC placement on Saturday -continue oxycodone and Dilaudid for pain control 2. Diabetes Mellitus - blood glucose stable -continue insulin Lantus 50 units b.i.d. as well as sliding scale -frequent Accu-Cheks, hypoglycemia protocol 3. Morbid Obesity - proper diet counseling 4. Anemia -possibly due to hematoma versus anemia of chronic disease -hemoglobin is stable at 9.6 -continue to monitor 5. Cellulitis of LLE -continue ceftriaxone IV for now, cultures were not obtained pending debridement 6. Hypothyroidism -continue levothyroxine 7. Essential hypertension -continue lisinopril and diltiazem 8. Hyperlipidemia -continue atorvastatin 9. Depression -continue aripiprazole, bupropion, duloxetine, and mirtazapine
--- NOTE | 2018-04-16 15:23 | PC.NURSE ---
Skin: Awaiting surgery. Oral meds given but not pt's insulin as she has a tendency to have low blood sugars and she is npo. Pt feels ready for surgery and she is satisfied with the anwsers to her questions. Spouse would like to see . He is here and will go with pt down to the OR. Pt has denied any pain and not needed anything for break through pain. Off to OR at 1500.
[2018-04-16] MEDS: LACTATED RINGERS 1,000 ML 42 ML IV (15:39)
--- NOTE | 2018-04-16 16:19 | SUR.OPER ---
Supine on pt's bed, head on pillow, arms laying next to the body, left leg is in frog position, legs uncrossed, safety tape at thigh.
--- NOTE | 2018-04-16 16:44 | P.OP_ITS ---
Operative Date/Time/Diagnoses Date of procedure: 04/16/18 Time of procedure: 16:35 Pre-op diagnosis: Open wound of the left calf Post-op diagnosis: same Procedure & Clinicians Procedure: Excisional debridement of left calf wound Same procedure as scheduled: Yes Indications: Open wound to the left calf after an injury about 2 weeks ago Surgeon: Zaira Cam Anesthesia Type: General (Dr. Pablo) Operative Notes Findings: 1. Frankly necrotic skin covering the surface of a much larger wound. 2. 8 x 8 cm dry eschar covering a deep bed of clot and necrotic tissue. 3. Total size of the wound is 17 by 12 cm extending proximally up the leg from the 8 x 8 cm opening. 4. Deep proximal area of the wound containing foul-smelling, clotted blood- evacuation of approximately 300-400 mL of clot Closure Type: not applicable Specimen(s): other (Cultures for aerobic and anaerobic organisms) Estimated Blood Loss (mL): 10 Procedure in detail: After obtaining informed consent, the patient brought to the operating room. Following successful induction of general endotracheal anesthesia, the left lower extremity was prepped and draped in the standard surgical fashion. A time-out was held per SCOAP protocol We began by removing an 8 x 8 cm eschar from the surface of the wound. This was done sharply. Underneath this eschar was a thick layer of clot extending a full 17 cm into the medial thigh. The clot was evacuated manually and we began irrigating the internal aspect of the wound. This was done with a L of saline solution followed by a L of saline containing Betadine solution. The clot was notably foul-smelling and partially liquified. The underlying tissue was viable including the tissue beneath the removed eschar. This was copiously irrigated once again and checked for hemostasis. The wound was packed with 2 damp Kerlix rolls and dressed with a dry dressing. All sponge, needle, and instrument counts were correct at the conclusion of the case. The patient was allowed to awaken from anesthesia without significant difficulty and taken to the postanesthesia care unit in satisfactory condition. Complications: none Condition: stable Disposition: PACU Plan for aftercare: 1. Damp to dry dressings to the left calf wounds starting tomorrow afternoon 2. Continue antibiotics while we await cultures 3. Other wound care per the wound center.
--- NOTE | 2018-04-16 17:35 | SUR.PHASEI ---
Pt transferred to room 212 via bed. Report given to MARTHA Neumann prior to transfer. Pt's last vital signs and condition stable. MARTHA Neumann at bedside prior to leaving pt.
[2018-04-16] MEDS: CEFTRIAXONE 2 GM/50 ML FROZ.PIGGY IV (18:22)
--- NOTE | 2018-04-16 20:43 | PC.NURSE ---
1730- pt arrived back to room 212 from PACU via bariatric bed. I&D done to LLL, gauze/samm wrap drsg CDI, with orders to not change drsg until tomorrow. Pt remains on 2Lnc for 95% SpO2, LS dim, denies SOB. A/O x3. chronic hargrove patent and draining clear yellow urine. BT+, denies nausea. Provided with fluids, half sand and SF pudding per pt request. KELLEY PICC 1/2NS @ 84 plus ABO infusing. Call light in reach. No further needs at this time.
[2018-04-16] MEDS: INSULIN GLARGINE 100 UNIT/ML 3ML PEN 50 UNIT SUBCUT (21:30)
[2018-04-16] MEDS: ATORVASTATIN 20 MG TABLET 40 MG PO (21:30)
[2018-04-16] MEDS: SENNOSIDES 8.6 MG TABLET 17.2 MG PO (21:30)
[2018-04-16] MEDS: MIRTAZAPINE 15 MG TABLET PO (21:30)
[2018-04-17] VITALS (12 sets, daily range): BP systolic 113–142; BP diastolic 56–72; PULSE 58–80; RESP 14–21; TEMP 36.1–36.8; O2SAT 92–98
--- NOTE | 2018-04-17 01:53 | PC.NURSE ---
Addendum entered by Iva Restrepo R.N. 04/17/18 07:04: Noted to have approx 12 X 12 area of sanguinous drainage on blue chux under leg this morning. Original Note: Addendum entered by Iva Restrepo R.N. 04/17/18 05:48: Has slept most of shift. Denies any pain this morning. O2 sat 94% still on 1L/min O2. Original Note: Patient is drowsy but arouseable and answers questions appropriately. Breath sounds remain quite diminished. Was on oxygen at 2L/min per NC at shift change with sat of 100% so decreased O2 to 1L/min and now at 93%. HR irregular and was afib CVR on telemetry reading. No nausea. BT hypoactive. Indwelling catheter is patent. Thomas wrap to left leg is CDI. Open area on anterior left ankle is open to air. Venous stasis discoloration bilateral LE with 2+ edema of feet. Is needing to be turned q2h as not able to move herself. Is in a bariatric bed so chair alarm is being utilized as patient is high risk for falls.
[2018-04-17] MEDS: SODIUM CHLORIDE 0.9% FLUSH 10 ML IV (05:37)
[2018-04-17] MEDS: LEVOTHYROXINE 88 MCG TABLET PO (05:44)
[2018-04-17] MEDS: PANTOPRAZOLE 20 MG TABLET PO (05:44)
[2018-04-17] MEDS: SODIUM CHLORIDE 0.45% 1,000 ML 84 ML IV ×2 (06:25→18:02)
[2018-04-17 06:31] LABS: Add Manual Diff / Slide Review NO; Basophils Percent Auto 0.4 % (0-2); Eosinophils Percent Auto 1.6 % (2-4); Hematocrit 29.2 % (36-46); Hemoglobin 9.5 g/dL (12.0-16.0); Lymphocytes Percent Auto 19.6 % (25-40); Mean Corpuscular HGB Conc 32.4 % (30-36); Mean Corpuscular Hemoglobin 29.7 PG (26-34); Mean Corpuscular Volume 91.6 fL (80-100); Monocytes Percent Auto 24.8 % (3-14); Neutrophils Absolute Auto 5700 /uL (3000-5900); Neutrophils Percent Auto 53.6 % (50-75); Platelet Count 357 X10^3/uL (150-400); Red Blood Cell Count 3.19 X10^6/uL (4.0-5.2); Red Cell Distribution Width 15.7 % (11.6-14.8); White Blood Cell Count 10.7 X10^3/uL (4.5-11.0)
[2018-04-17 06:50] LABS: BUN Creatinine Ratio 16.3 (6-22); Blood Urea Nitrogen 13 mg/dL (7-17); Calcium 8.8 mg/dL (8.4-10.2); Carbon Dioxide 34 mmol/L (22-32); Chloride 100 mmol/L (98-107); Estimated Glomerular Filt Rate > 60.0 mL/min (>60); Glucose 103 mg/dL (80-110); HEMOLYSIS < 15 (0-50); Potassium 4.4 mmol/L (3.4-5.1); Sodium 140 mmol/L (137-145)
[2018-04-17] MEDS: DOCUSATE 100 MG CAPSULE PO ×2 (09:35→20:56)
[2018-04-17] MEDS: LISINOPRIL 10 MG TABLET PO ×2 (09:35→20:56)
[2018-04-17] MEDS: DULOXETINE 30 MG CAPSULE 60 MG PO (09:36)
[2018-04-17] MEDS: GABAPENTIN 400 MG CAPSULE 800 MG PO ×3 (09:36→20:56)
[2018-04-17] MEDS: buPROPion 100 MG TABLET PO ×2 (09:36→20:56)
[2018-04-17] MEDS: dilTIAZem CD 240 MG CAP PO (09:36)
[2018-04-17] MEDS: INSULIN GLARGINE 100 UNIT/ML 3ML PEN 50 UNIT SUBCUT ×2 (09:37→20:57)
[2018-04-17] MEDS: ARIPiprazole 10 MG TABLET 2.5 MG PO (09:40)
[2018-04-17] MEDS: OXYCODONE ER 10 MG TAB 20 MG PO (09:50)
--- NOTE | 2018-04-17 11:24 | PM.PN.1 ---
Subjective Date Patient Seen: 04/17/18 Time Patient Seen: 11:24 Interval history: Follow-up on left leg hematoma with necrotic ulcers and left lower extremity cellulitis Patient seen at bedside. No acute overnight events. She went for debridement of the left leg hematoma yesterday, which was successful and wound cultures were sent. No fevers or chills. Patient is tolerating diet well, and pain is well controlled. Exam Vital Signs (past 8 hours): - 04/17/18 04:00 04/17/18 08:05 04/17/18 08:29 Temperature 97.3 F L 97.9 F Pulse Rate 60 70 Respiratory Rate 18 20 Blood Pressure 113/57 L 133/58 L Pulse Oximetry 94 92 95 Oxygen Delivery Method Nasal Cannula Oxygen Flow Rate 1 Narrative Exam Narrative: General: No acute distress, A/O x3 HEENT: PERRLA bilaterally Neck: Supple, obese short CV: Regular rate rhythm, no murmurs Respiratory: CTA bilaterally, no wheezing or crackles noted but examination is limited due to body habitus GI: Obese, positive bowel sounds, no organomegaly Musculoskeletal: Left lower extremity dressings are in place. Skin: Bilateral stasis dermatitis Neuro: No focal deficits Psych: Mood is appropriate Objective Labs Result Diagrams: 04/17/18 05:37 04/17/18 05:37 Labs: Laboratory Results - last 24 hr 04/17/18 04/17/18 05:37 05:37 WBC 10.7 RBC 3.19 L Hgb 9.5 L Hct 29.2 L MCV 91.6 MCH 29.7 MCHC 32.4 RDW 15.7 H Plt Count 357 Neut % (Auto) 53.6 Lymph % (Auto) 19.6 L [place] % (Auto) 24.8 H Eos % (Auto) 1.6 L Baso % (Auto) 0.4 Neut # (Auto) 5700 Sodium 140 Potassium 4.4 Chloride 100 Carbon Dioxide 34 H BUN 13 Creatinine 0.80 Estimated GFR > 60.0 BUN/Creatinine Ratio 16.3 Glucose 103 Calcium 8.8 Assessment & Plan Plan: Assessment/Plan Narrative: 1. Hematoma of left lower extremity -patient is s/p debribement, post op day 1 -continue oxycodone and Dilaudid for pain control -Wound care consult for wound vac 2. Diabetes Mellitus - blood glucose stable -continue insulin Lantus 50 units b.i.d. as well as sliding scale -frequent Accu-Cheks, hypoglycemia protocol 3. Morbid Obesity - proper diet counseling 4. Anemia -possibly due to hematoma versus anemia of chronic disease -hemoglobin is stable at 9.5 -continue to monitor 5. Cellulitis of LLE -blood cx negative -continue ceftriaxone IV for now until wound cultures are back 6. Hypothyroidism -continue levothyroxine 7. Essential hypertension -continue lisinopril and diltiazem 8. Hyperlipidemia -continue atorvastatin 9. Depression -continue aripiprazole, bupropion, duloxetine, and mirtazapine
[2018-04-17] MEDS: INSULIN ASPART 100 UNIT/ML INSULN PEN SUBCUT ×2 (14:05→17:55)
--- NOTE | 2018-04-17 14:17 | PC.NURSE ---
MACHINE SPRAYER note: Pts bed broke and we had to trouble shoot and switch beds & rooms. By the time she was set up for lunch it was 1400 and her CBG was old and she needed a new one. LAURENT
--- NOTE | 2018-04-17 14:20 | PM.PN.1 ---
Subjective Date Patient Seen: 04/17/18 Time Patient Seen: 14:21 Interval history: Patient denies any significant pain at the debridement site. Noted some serosanguineous drainage throughout the night soaking through the dressing. No subjective fever or chills. Exam Vital Signs (past 8 hours): - 04/17/18 08:05 04/17/18 08:29 04/17/18 14:07 Temperature 97.9 F 97.7 F Pulse Rate 70 75 Respiratory Rate 20 16 Blood Pressure 133/58 L 142/72 H Pulse Oximetry 92 95 94 Oxygen Delivery Method Nasal Cannula Oxygen Flow Rate 1.5 Narrative Exam Narrative: Morbidly obese female lying in the bed. Family is at the bedside. No fevers or tachycardia. Blood pressure is stable Focused examination of the wound bed is performed after removing the existing operative dressing including all packing. Skin flaps were viable although hyperpigmentation is present consistent with significant venous congestion. Subcutaneous tissue shows no persistent necrotic debris. No purulent material. Cavity is otherwise clean. Objective Labs Result Diagrams: 04/17/18 05:37 04/17/18 05:37 Labs: Laboratory Results - last 24 hr 04/17/18 04/17/18 05:37 05:37 WBC 10.7 RBC 3.19 L Hgb 9.5 L Hct 29.2 L MCV 91.6 MCH 29.7 MCHC 32.4 RDW 15.7 H Plt Count 357 Neut % (Auto) 53.6 Lymph % (Auto) 19.6 L [place] % (Auto) 24.8 H Eos % (Auto) 1.6 L Baso % (Auto) 0.4 Neut # (Auto) 5700 Sodium 140 Potassium 4.4 Chloride 100 Carbon Dioxide 34 H BUN 13 Creatinine 0.80 Estimated GFR > 60.0 BUN/Creatinine Ratio 16.3 Glucose 103 Calcium 8.8 awaiting cultures Assessment & Plan Plan: Assessment/Plan Narrative: 77-year-old morbidly obese female postoperative day 1 from incision and drainage of infected hematoma left leg as well as sharp debridement of necrotic tissue who is otherwise stable. There is no evidence of residual necrosis or purulent material. Replaced the wet-to-dry packing and gauze dressing. She tolerated this well at the bedside today. Continue dressing changes twice daily for now until wound VAC device can be applied. Wound VAC can be utilized at any time from our perspective. Will therefore defer ongoing wound care to the wound Care Center. However, we will continue to follow during this admission. I discussed all the above with the patient and her family in detail. All questions were answered to her satisfaction, and she voiced understanding.
[2018-04-17] MEDS: CEFTRIAXONE 2 GM/50 ML FROZ.PIGGY IV (17:55)
[2018-04-17] MEDS: MIRTAZAPINE 15 MG TABLET PO (20:56)
[2018-04-17] MEDS: SENNOSIDES 8.6 MG TABLET 17.2 MG PO (20:57)
[2018-04-17] MEDS: ATORVASTATIN 20 MG TABLET 40 MG PO (20:57)
[2018-04-18 00:24] VITALS: O2SAT 95
[2018-04-18] MEDS: OXYCODONE 5 MG/5 ML ORAL SOLUTION 10 MG PO ×2 (02:47→13:05)
[2018-04-18 03:21] VITALS: BP 120/59; PULSE 60; RESP 22; TEMP 36.6; O2SAT 93
[2018-04-18 06:26] LABS: BUN Creatinine Ratio 16.4 (6-22); Blood Urea Nitrogen 18 mg/dL (7-17); Carbon Dioxide 31 mmol/L (22-32); Chloride 100 mmol/L (98-107); Estimated Glomerular Filt Rate 48.3 mL/min (>60); Glucose 152 mg/dL (80-110); HEMOLYSIS < 15 (0-50); Potassium 4.3 mmol/L (3.4-5.1); Sodium 139 mmol/L (137-145)
[2018-04-18 06:30] LABS: Hematocrit 32.1 % (36-46); Hemoglobin 10.1 g/dL (12.0-16.0); Mean Corpuscular HGB Conc 31.4 % (30-36); Mean Corpuscular Hemoglobin 28.9 PG (26-34); Mean Corpuscular Volume 92.1 fL (80-100); Platelet Count 355 X10^3/uL (150-400); Red Blood Cell Count 3.49 X10^6/uL (4.0-5.2); Red Cell Distribution Width 15.9 % (11.6-14.8); White Blood Cell Count 12.3 X10^3/uL (4.5-11.0)
[2018-04-18 06:31] LABS: Add Manual Diff / Slide Review YES
[2018-04-18] MEDS: SODIUM CHLORIDE 0.45% 1,000 ML 84 ML IV (06:33)
[2018-04-18] MEDS: PANTOPRAZOLE 20 MG TABLET PO (06:33)
[2018-04-18] MEDS: LEVOTHYROXINE 88 MCG TABLET PO (06:33)
[2018-04-18 06:53] LABS: Neutrophils Absolute Manual 6642 /uL (3000-5900); Total Cells Counted 100
[2018-04-18 06:55] LABS: Anisocytosis 1+; Nucleated Red Blood Cells 1 #/Diff
--- NOTE | 2018-04-18 06:58 | PC.NURSE ---
Slept most of the shift. Medicated x1 with 10 mg. of Oxycodone prerna @ 0247. Will cont. POC & monitor.
[2018-04-18 07:00] VITALS: O2SAT 97
[2018-04-18 07:35] VITALS: BP 144/71; PULSE 58; RESP 20; TEMP 36.4; O2SAT 98
[2018-04-18] MEDS: GABAPENTIN 400 MG CAPSULE 800 MG PO (08:33)
[2018-04-18] MEDS: DULOXETINE 30 MG CAPSULE 60 MG PO (08:33)
[2018-04-18] MEDS: LISINOPRIL 10 MG TABLET PO (08:34)
[2018-04-18] MEDS: buPROPion 100 MG TABLET PO (08:34)
[2018-04-18] MEDS: ARIPiprazole 10 MG TABLET 2.5 MG PO (08:34)
[2018-04-18] MEDS: dilTIAZem CD 240 MG CAP PO (08:35)
[2018-04-18] MEDS: DOCUSATE 100 MG CAPSULE PO (08:35)
[2018-04-18] MEDS: INSULIN GLARGINE 100 UNIT/ML 3ML PEN 50 UNIT SUBCUT (08:39)
[2018-04-18] MEDS: INSULIN ASPART 100 UNIT/ML INSULN PEN SUBCUT ×2 (08:40→12:20)
--- NOTE | 2018-04-18 10:37 | PM.DS.1 ---
History of Present Illness Date Patient Seen: 04/18/18 Time Patient Seen: 10:38 Chief complaint: GLF Narrative: 77-year-old female who was discharged to [facility] last week following a fall in which she suffered a hematoma of the left lower extremity. Patient is on Xarelto and aspirin. Her hematoma was large and indurated. Patient was evaluated by Orthopedic surgery during her hospital stay. Based on their evaluation at that time it was recommended that surgical debridement was not indicated. The patient was ultimately discharged back to the [facility]. The night before admission hematoma opened with significant bleeding and clots passing. She presented to the emergency department for evaluation. The wound was significantly worse. There was necrotic tissue. There was surrounding redness and warmth. The leg was not painful. It was continuing to ooze from an open area with clots passing. The patient was evaluated in the emergency department. She was seen by General surgery who recommended debridement followed by wound VAC. The wound clinic was able to evaluate her in the emergency department as well. They concurred with a plan for debridement followed by wound VAC placement. The patient has had no fever or chills. No nausea or vomiting. She has a chronic indwelling catheter. She is bed-bound and nonambulatory. She has no pain in the leg. She does have some redness and warmth. No sweating or chills. She has no shortness of breath or chest pain. The patient was seen and evaluated in the emergency room and admitted to the hospital for definitive treatment. Discharge Providers Date of admission: 04/14/18 16:11 Primary care physician: Marleny Narvaez MD Consults: 04/14/18 17:55 Consult to Physician Routine Comment: Consulting Provider: Zaira Cam Reason for consultation: debridement Has provider been notified: Yes Consult to Preventive Maintenance Engineer Routine Comment: 04/16/18 22:44 Consult to Respiratory Therapy Evaluate & Treat Comment: Physician Instructions: Evaluate and treat 04/17/18 11:29 Consult to Wound Care Routine Comment: Consulting Provider: Ken[facility] Wound Care Discharge provider: Kimmy Keating MD Discharge Date: 04/18/18 Summary Discharge Diagnosis: Patient was admitted to general medical floors. Blood cultures were drawn and came back negative for any growth. Patient was started on ceftriaxone IV for concurrent cellulitis of the left lower extremity. Patient underwent debridement by surgery on 04/16/2018. During the debridement wound cultures were taken, which grew Staphylococcus aureus. Patient was switched from ceftriaxone IV to doxycycline 100 mg p.o. b.i.d. for 7 more days on 04/18/2018, today. Since today is day 3 postop debridement, patient needs wound VAC placement. She will get the wound VAC back at [facility]. Otherwise, patient is doing well. She initially had mild acute kidney injury due to dehydration, which resolved with hydration. Pain was well controlled with Oxycodone scheduled and PRN doses, which patient will go back to [place] on. Patient's Anticoagulation was held during this admission given LLE hematoma. it will need to be restarted in the near future once hematoma is resolved Patient also required 1L O2 during hospital as she desaturated slightly without it, likely due to obesity hypoventilation syndrome (was diagnosed with CARINA in the past but not compliant with therapy). Will send patient on 1L O2 nasal cannula and titrate off as appropriate Status at Discharge Functional status at discharge: bed bound Overall status at discharge: patient is progressing back to baseline Time Spent with Patient Less than 30 minutes Exam Vital Signs (past 8 hours): - 04/18/18 03:21 04/18/18 07:00 04/18/18 07:35 Temperature 97.8 F 97.5 F L Pulse Rate 60 58 L Respiratory Rate 22 20 Blood Pressure 120/59 L 144/71 H Pulse Oximetry 93 97 98 Oxygen Delivery Method Room Air Oxygen Flow Rate 1 Narrative Exam Narrative: General: No acute distress, AAO x3 HEENT: PERRLA bilaterally Neck: Supple, obese short CV: Regular rate rhythm, no murmurs Respiratory: CTA bilaterally, no wheezing or crackles noted but examination is limited due to body habitus GI: Obese, positive bowel sounds, no organomegaly Musculoskeletal: Left lower extremity dressings are in place. Skin: Bilateral stasis dermatitis Neuro: No focal deficits Psych: Mood is appropriate Objective Labs Result Diagrams: 04/18/18 06:02 04/18/18 06:02 Labs: Laboratory Results - last 24 hr 04/18/18 04/18/18 06:02 06:02 WBC 12.3 H RBC 3.49 L Hgb 10.1 L Hct 32.1 L MCV 92.1 MCH 28.9 MCHC 31.4 RDW 15.9 H Plt Count 355 Neut % (Auto) Not Reportable Lymph % (Auto) Not Reportable [place] % (Auto) Not Reportable Eos % (Auto) Not Reportable Baso % (Auto) Not Reportable Total Counted 100 Seg Neutrophils % 50.0 Band Neutrophils % 4.0 Lymphocytes % (Manual) 23.0 L Monocytes % (Manual) 20.0 H Eosinophils % (Manual) 2.0 Basophils % (Manual) 1.0 Neutrophils # (Manual) 6642 H Nucleated RBCs 1 H RBC Morphology Not Reportable Anisocytosis 1+ H Sodium 139 Potassium 4.3 Chloride 100 Carbon Dioxide 31 BUN 18 H Creatinine 1.10 H Estimated GFR 48.3 L BUN/Creatinine Ratio 16.4 Glucose 152 H Calcium 9.0 Discharge Plan Discharge Plan Transfer to: [facility] Discharge Med Rec/Prescriptions Prescriptions: New doxycycline hyclate 100 mg capsule 100 mg PO BID 7 Days Qty: 14 RF: 0 Continue bisacodyl 10 MG suppository 10 mg TN PRN PRN (Reason: Constipation) Qty: 0 RF: 0 nitroglycerin [Nitrostat] 0.4 MG tablet, sublingual 0.4 mg Sublingual PRN PRN (Reason: Chest Pain) Qty: 0 RF: 0 hydroxyzine pamoate [Vistaril] 25 MG capsule 25 mg PO Q6HP PRN (Reason: Spasms) Qty: 0 RF: 0 diphenhydramine HCl [Benadryl Allergy] 25 MG tablet 25 mg PO Q8HP PRN (Reason: Allergy Symptoms) Qty: 0 RF: 0 ondansetron HCl 4 MG tablet 4 mg PO Q4HP PRN (Reason: Nausea) Qty: 0 RF: 0 furosemide 40 mg Tablet 40 mg PO DAILY PRN (Reason: Edema) RF: 0 magnesium hydroxide [Milk of Magnesia] 400 mg/5 mL Suspension 30 ml PO PRN PRN (Reason: Constipation) RF: 0 sodium phosphates [Fleet Enema] 19-7 gram/118 mL Enema 1 ea TN PRN PRN (Reason: Constipation) RF: 0 atorvastatin 40 mg Tablet 40 mg PO BEDTIME RF: 0 potassium chloride 10 mEq Capsule, Extended Release 10 meq PO DAILY RF: 0 acetaminophen 325 mg Tablet 650 mg PO Q4H MDD 3 g PRN (Reason: bladder spasm pain) RF: 0 diltiazem HCl 240 mg Capsule,Extended Release 24 Hr 240 mg PO DAILY RF: 0 aspirin [Aspir-Low] 81 mg Tablet,Delayed Release (Dr/Ec) 81 mg PO DAILY RF: 0 bupropion HCl 100 mg Tablet Sustained-Release 12 Hr 100 mg PO BID RF: 0 pantoprazole 20 mg Tablet,Delayed Release (Dr/Ec) 20 mg PO DAILY RF: 0 nortriptyline 25 mg Capsule 25 mg PO BEDTIME RF: 0 gabapentin 800 mg Tablet 800 mg PO TID RF: 0 lisinopril 10 mg Tablet 10 mg PO BID RF: 0 furosemide [Lasix] 20 mg Tablet 20 mg PO DAILY RF: 0 mirtazapine 15 mg Tablet 15 mg PO BEDTIME RF: 0 docusate sodium 100 mg Tablet 200 mg PO BID RF: 0 hydroxyzine pamoate [Vistaril] 25 mg Capsule 25 mg PO QID PRN (Reason: Spasms) RF: 0 multivitamin with iron-mineral Tablet 1 tab PO DAILY RF: 0 aripiprazole 5 mg Tablet 2.5 mg PO DAILY RF: 0 duloxetine 60 mg Capsule,Delayed Release(Dr/Ec) 60 mg PO DAILY RF: 0 oxycodone 10 mg Tablet 10 mg PO Q6H PRN (Reason: breakthrough pain level 5-10) RF: 0 mirabegron [Myrbetriq] 25 mg Tablet Extended Release 24 Hr 25 mg PO DAILY RF: 0 oxycodone [OxyContin] 20 mg Tablet,Oral Only,Ext.Rel.12 Hr 20 mg PO Q12H RF: 0 insulin glargine [Lantus Solostar U-100 Insulin] 100 unit/mL (3 mL) Insulin Pen 50 unit subcut BID 30 Days Qty: 30 RF: 0 bisacodyl 5 mg Tablet 10 mg PO PRN PRN (Reason: Constipation) RF: 0 nystatin 100,000 unit/gram Powder 1 applic TOPICAL PRN PRN (Reason: Rash) RF: 0 acetaminophen 500 mg Tablet 1,000 mg PO BID MDD 3 g RF: 0 levothyroxine 88 mcg tablet 88 mcg PO DAILY RF: 0 zinc oxide Ointment 1 applic Topical TID RF: 0 oxycodone 10 mg Tablet 10 mg PO Q6H PRN (Reason: breakthrough pain level 5-10) Qty: 20 RF: 0 oxycodone [OxyContin] 20 mg Tablet,Oral Only,Ext.Rel.12 Hr 20 mg PO Q12H Qty: 30 RF: 0 Discontinued rivaroxaban [Xarelto] 20 mg Tablet 20 mg PO DAILY RF: 0 amoxicillin-pot clavulanate [Augmentin] 875-125 mg tablet 1 tab PO [id number] RF: 0 Discharge Orders: Discharge (Order); Ordered 04/18/18 Ordered By: Kimmy Keating Provider Discharge Instructions Diet: Carb-consistent/Diabetic Liquid consistency: Normal/Thin Food texture: Regular Catheter comment: Chronic Law catheter Oxygen: 1L O2 nasal cannula Skin/Wound/Dressing Care Dressing: Wound Vac Follow up with wound care clinic on Saturday, 04/21 Discharge Data Primary Care Provider: Marleny Narvaez Attending Provider: Brooke Hernandez Admit Date/Time: 04/14/18 16:11
--- NOTE | 2018-04-18 11:14 | CM.DPC ---
Addendum entered by NEEL Noble 04/18/18 11:44: ADD: [facility] can provide transport but requesting use of hospital bariatric w/c and SW confirmed with bottle dealer that they can borrow the w/c and return valerie to reduce pt's risk of delaying discharge. SW updated [facility] and they can provide transport at 1330 and they received the d/c packet. RIKY updated RN, pt, [employer], and NTL. Plan: Patient to d/c to [facility] today via w/c van and borrowing hospital isiah w/c at 1330. NEEL Noble Original Note: DCP Discharge to SNF Per MD, pt to switch to oral abx today and does not need IV-Abx at d/c and pt stable for d/c to SNF today if SNF has wound vac supplies for discharge. RIKY called [facility] admissions and updated on the above information and admissions confirmed that they have wound vac and supplies needed for accepting the patient today and inquired if pt needs BLS vs w/c van transport. Per MD, pt mostly bed bound and bariatric and has needed a usman while in the hospital and likely will need BLS transport and signed non-emergent BLS form. Bria kindly scheduled BLS stretcher transport for the pt through [facility] at 1300. RIKY met bedside with pt and RN who was doing a dressing change and pt still agreeable with d/c to [facility] today and states she has not updated her yet. Both pt and RN felt that the pt could safely transport via isiah w/c today across the street. RN checking if pt needs oxygen at d/c which is not what pt requires at baseline. RIKY called [facility] and updated that pt could safely transport via bariatric w/c and [facility] checking to see if they have appropriate w/c for transport for the pt. RIKY called pt's spouse Nicholas and updated on d/c to [facility] today and he is still agreeable with the plan for d/c to [facility] rehab prior to return home to [facility]. Plan: SW to follow for return call from [facility] to determine if they can provide isiah w/c transport for the pt today vs [facility] stretcher transport. NEEL Noble
[2018-04-18 11:45] VITALS: BP 140/58; PULSE 62; RESP 20; TEMP 36.2; O2SAT 95
--- NOTE | 2018-04-18 12:08 | PC.NURSE ---
Addendum entered by Rayne Gipson R.N. 04/18/18 12:54: report called to Gia at [facility], she states the pressure injury was present prior to this admission. all questions answered to satisfaction. Original Note: patient drowsy when first woke up this am. sat 97-98% on 1L/nc. hx sleep apnea. states doesn't use o2 or cpap at home. lungs dim and clear throughout. no sob. desat to 83% on ra, rt in to assess, states likely r/t hx sleep apnea, replaced the 1L/nc. md notified of same. patient denies pain and am scheduled oxycontin not given per patient consent, immediate release form had been given during noc shift. bedbath provided, stage 2 pressure injury noted to coccyx, see documentation. photo obtained. applied allyvn boarder form drsg. usman lifted to recliner. LLE drsg saturated through samm wrap. serous/sang. drsg and kerlix roll packing x2 removed. see drsg change doc. on worklist. packed with 1 roll kerlix damp with ns. wrapped with dry kerlix roll to secure, and covered with clean samm wrap. patient to have wound vac placed at SNF today, and f/u with wound clinic Saturday.
--- NOTE | 2018-04-18 12:16 | CM.DPC ---
D/C packet faxed to [facility] per Prisca
== END 2018-04-18 14:06 | DRG 300 ==
LOC: ED 16:11 → AC 16:12
PROVIDERS: Internal Medicine; Surgery; Admitting Provider Internal Medicine; Emergency Provider Nurse Practitioner Family; Family Provider Internal Medicine; PCP Internal Medicine; Visit Provider Internal Medicine
PROC: 0HBLXZZ Excision of Left Lower Leg Skin, External Approach (ICD-10-PCS; principal; 2018-04-16 16:30)
DX: E11.52 Type 2 diabetes mellitus with diabetic peripheral angiopathy with gangrene (principal); I96 Gangrene, not elsewhere classified; Z68.43 Body mass index [BMI] 50.0-59.9, adult; L03.116 Cellulitis of left lower limb; E11.65 Type 2 diabetes mellitus with hyperglycemia; Z79.4 Long term (current) use of insulin; E66.01 Morbid (severe) obesity due to excess calories; I12.9 Hypertensive chronic kidney disease with stage 1 through stage 4 chronic kidney disease, or unspecified chronic kidney disease; E11.22 Type 2 diabetes mellitus with diabetic chronic kidney disease; N18.3 Chronic kidney disease, stage 3 (moderate); G89.4 Chronic pain syndrome; Z74.01 Bed confinement status; F32.89 Other specified depressive episodes; Z79.01 Long term (current) use of anticoagulants; I48.91 Unspecified atrial fibrillation; K21.9 Gastro-esophageal reflux disease without esophagitis; E78.5 Hyperlipidemia, unspecified; E03.9 Hypothyroidism, unspecified; G47.33 Obstructive sleep apnea (adult) (pediatric); R32 Unspecified urinary incontinence; F41.9 Anxiety disorder, unspecified; Z66 Do not resuscitate; B95.61 Methicillin susceptible Staphylococcus aureus infection as the cause of diseases classified elsewhere
CPT/HCPCS: 11043; 11403; 36415; 36569; 36591; 36592; 80048; 80053; 81001; 82962; 83605; 84145; 85025; 85610; 85730; 87040; 87070; 87075; 87077; 87086; 87147; 87186; 87205; 93971; 94760; 99221; 99231; 99283; 99284; J0696; J2405; J2704; J3010; J7050

== ENCOUNTER → 2018-04-22 14:38 | Outpatient (CLI) | payer MEDICARE, OTHER, MEDICAID, SELFPAY ==
[2018-04-14 18:23] VITALS: BMI 54.3
== END ==
PROVIDERS: Family Provider Internal Medicine; PCP Internal Medicine; Visit Provider Family Medicine
DX: S81.802A Unspecified open wound, left lower leg, initial encounter (principal); L08.9 Local infection of the skin and subcutaneous tissue, unspecified; L03.116 Cellulitis of left lower limb
CPT/HCPCS: 11042; 11045; 99213; 99214

== ENCOUNTER → 2018-04-29 13:01 | Outpatient (CLI) | payer MEDICARE, OTHER, MEDICAID, SELFPAY ==
[2018-04-14 18:23] VITALS: BMI 54.3
== END ==
PROVIDERS: Family Provider Internal Medicine; PCP Internal Medicine; Visit Provider Family Medicine
DX: S81.802A Unspecified open wound, left lower leg, initial encounter (principal); S91.002A Unspecified open wound, left ankle, initial encounter; L89.890 Pressure ulcer of other site, unstageable
CPT/HCPCS: 11042; 99213

== ENCOUNTER → 2018-05-06 13:31 | Outpatient (CLI) | payer MEDICARE, OTHER, MEDICAID, SELFPAY ==
[2018-04-14 18:23] VITALS: BMI 54.3
== END ==
PROVIDERS: Family Provider Internal Medicine; PCP Internal Medicine; Visit Provider Family Medicine
DX: S81.802A Unspecified open wound, left lower leg, initial encounter (principal); S91.002A Unspecified open wound, left ankle, initial encounter; L08.9 Local infection of the skin and subcutaneous tissue, unspecified; L89.890 Pressure ulcer of other site, unstageable
CPT/HCPCS: 11042; 11045

== ENCOUNTER → 2018-05-13 13:42 | Outpatient (CLI) | payer MEDICARE, OTHER, MEDICAID, SELFPAY ==
[2018-04-14 18:23] VITALS: BMI 54.3
== END ==
PROVIDERS: Family Provider Internal Medicine; PCP Internal Medicine; Visit Provider Family Medicine
DX: S81.802A Unspecified open wound, left lower leg, initial encounter (principal); L89.890 Pressure ulcer of other site, unstageable; S91.002D Unspecified open wound, left ankle, subsequent encounter; B96.5 Pseudomonas (aeruginosa) (mallei) (pseudomallei) as the cause of diseases classified elsewhere
CPT/HCPCS: 11042; 11045; 97606

== ENCOUNTER → 2018-05-15 10:54 | Outpatient (CLI) | payer MEDICARE, OTHER, MEDICAID, SELFPAY ==
[2018-04-14 18:23] VITALS: BMI 54.3
== END ==
PROVIDERS: Family Provider Internal Medicine; PCP Internal Medicine; Visit Provider Family Medicine
DX: S91.002D Unspecified open wound, left ankle, subsequent encounter (principal); S81.802A Unspecified open wound, left lower leg, initial encounter; L89.890 Pressure ulcer of other site, unstageable
CPT/HCPCS: 97606

== ENCOUNTER → 2018-05-22 14:02 | Outpatient (CLI) | payer MEDICARE, OTHER, MEDICAID, SELFPAY ==
[2018-04-14 18:23] VITALS: BMI 54.3
== END ==
PROVIDERS: Family Provider Internal Medicine; PCP Internal Medicine; Visit Provider Family Medicine
DX: S81.802A Unspecified open wound, left lower leg, initial encounter (principal); S91.002A Unspecified open wound, left ankle, initial encounter; L89.890 Pressure ulcer of other site, unstageable; L08.9 Local infection of the skin and subcutaneous tissue, unspecified
CPT/HCPCS: 11042; 11045; 87070; 87075; 87077; 87186; 87205; 97597

== ENCOUNTER → 2018-05-30 11:03 | Outpatient (CLI) | payer MEDICARE, OTHER, MEDICAID, SELFPAY ==
[2018-04-14 18:23] VITALS: BMI 54.3
== END ==
PROVIDERS: Family Provider Internal Medicine; PCP Internal Medicine; Visit Provider Family Medicine
DX: S81.802A Unspecified open wound, left lower leg, initial encounter (principal); S91.002A Unspecified open wound, left ankle, initial encounter; L89.890 Pressure ulcer of other site, unstageable; L08.9 Local infection of the skin and subcutaneous tissue, unspecified; B96.5 Pseudomonas (aeruginosa) (mallei) (pseudomallei) as the cause of diseases classified elsewhere
CPT/HCPCS: 11042; 11045; 99213

== ENCOUNTER → 2018-06-05 13:54 | Outpatient (CLI) | payer MEDICARE, OTHER, MEDICAID, SELFPAY ==
[2018-04-14 18:23] VITALS: BMI 54.3
== END ==
PROVIDERS: Family Provider Internal Medicine; PCP Internal Medicine; Visit Provider Family Medicine
DX: S81.802A Unspecified open wound, left lower leg, initial encounter (principal); L08.9 Local infection of the skin and subcutaneous tissue, unspecified
CPT/HCPCS: 11042; 11045

== ENCOUNTER 2018-06-06 16:55 | Emergency (ER) | payer MEDICARE, OTHER, MEDICAID, SELFPAY ==
[2018-04-14 18:23] VITALS: BMI 54.3
[2018-06-06 17:04] VITALS: BP 156/67; PULSE 72; RESP 20; TEMP 36.9; O2SAT 91; BMI 54.1
--- NOTE | 2018-06-06 17:38 | ED_ITS ---
HPI - Wound/Laceration <Serena Benitez PA-C - Last Filed: 06/06/18 22:04> General Chief Complaint: Wound/Laceration Stated Complaint: Leg wounds Time Seen by Provider: 06/06/18 17:09 Source: patient Mode of arrival: ambulatory Limitations: no limitations History of Present Illness HPI narrative: This 77-year-old female is sent from nursing home facility due to open wound on the right foot and edema. She has severe chronic edema, and has been to the point recently that she has developed blisters including 1 on the right heel. She was doing some physical therapy today, moving, and says it could have been bumped, and it opened up and was draining serous fluid and blood. There was concern that she might need IV antibiotics and diuresis for her edema, so was sent in for evaluation per nursing staff. Patient herself states she does not feel acutely ill, feels the same as she did yesterday and ? I am angry that I am here?. She thinks her swelling is about the same as always. She has not had new pain in her legs or feet. She denies any chest pain or dyspnea. She has not had fever, denies any other new symptoms on systems review. She has had a similar wound on her left leg recently apparently that has been treated by wound care (no visit notes have been received at patient arrival). Related Data Home Medications Medication Instructions Recorded Confirmed bisacodyl 10 mg SC PRN PRN #0 07/05/16 06/06/18 hydroxyzine pamoate [Vistaril] 25 mg PO Q6HP PRN #0 07/05/16 06/06/18 nitroglycerin [Nitrostat] 0.4 mg SUBLINGUAL PRN PRN #0 07/05/16 06/06/18 diphenhydramine HCl [Benadryl 25 mg PO Q8HP PRN #0 04/08/17 06/06/18 Allergy] ondansetron HCl 4 mg PO Q4HP PRN #0 04/08/17 06/06/18 bisacodyl 5 - 10 mg PO PRN PRN 12/04/17 06/06/18 nystatin 1 applic TOPICAL PRN PRN 12/04/17 06/06/18 magnesium hydroxide [Milk of 30 ml PO PRN PRN 04/02/18 06/06/18 Magnesia] sodium phosphates [Fleet Enema] 1 ea SC PRN PRN 04/02/18 06/06/18 acetaminophen 650 mg PO Q4H PRN MDD 3 g 04/03/18 06/06/18 aripiprazole 2.5 mg PO DAILY 04/03/18 06/06/18 aspirin [Aspir-Low] 81 mg PO DAILY 04/03/18 06/06/18 atorvastatin 40 mg PO BEDTIME 04/03/18 06/06/18 bupropion HCl 100 mg PO BID 04/03/18 06/06/18 diltiazem HCl 240 mg PO DAILY 04/03/18 06/06/18 docusate sodium 200 mg PO BID 04/03/18 06/06/18 duloxetine 60 mg PO DAILY 04/03/18 06/06/18 lisinopril 10 mg PO BID 04/03/18 06/06/18 mirabegron [Myrbetriq] 25 mg PO DAILY 04/03/18 06/06/18 mirtazapine 15 mg PO BEDTIME 04/03/18 06/06/18 nortriptyline 25 mg PO BEDTIME 04/03/18 06/06/18 pantoprazole 20 mg PO DAILY 04/03/18 06/06/18 potassium chloride 10 meq PO DAILY 04/03/18 06/06/18 acetaminophen 1,000 mg PO BID MDD 3 g 04/14/18 06/06/18 levothyroxine 88 mcg PO DAILY 04/14/18 06/06/18 ciprofloxacin HCl [Cipro] 500 mg PO BID 06/06/18 06/06/18 enoxaparin [Lovenox] 40 mg SUBCUT DAILY 06/06/18 06/06/18 furosemide 20 mg PO DAILY 06/06/18 06/06/18 furosemide 40 mg PO DAILY PRN 06/06/18 06/06/18 gabapentin 900 mg PO TID 06/06/18 06/06/18 insulin glargine [Lantus U-100 57 units SUBCUT BID 06/06/18 06/06/18 Insulin] insulin lispro [Humalog U-100 See Label Instructions .ROUTE 06/06/18 06/06/18 Insulin] .COMPLEX melatonin 3 mg PO BEDTIME PRN 06/06/18 06/06/18 multivitamin with minerals 1 cap PO DAILY 06/06/18 06/06/18 polyethylene glycol 3350 17 g PO DAILY 06/06/18 06/06/18 sennosides [senna] 17.2 mg PO BID 06/06/18 06/06/18 Previous Rx's Medication Instructions Recorded oxycodone 10 mg PO Q6H PRN #20 tab 04/18/18 oxycodone [OxyContin] 20 mg PO Q12H #30 tab 04/18/18 Allergies Allergy/AdvReac Type Severity Reaction Status Date / Time adhesive [ADHESIVE] Allergy Mild ALLERGY TO Verified 12/05/17 14:53 TAPE Review of Systems <Serena Benitez PA-C - Last Filed: 06/06/18 22:04> Review of Systems ROS Unobtainable: All systems reviewed & are unremarkable except as noted in HPI and below Exam <Serena Benitez PA-C - Last Filed: 06/06/18 22:04> Narrative Exam Narrative: GENERAL APPEARANCE: Patient sitting comfortably, in no distress. HEENT: PERRL, EOMI, normal oropharynx NECK/THYROID: Neck supple LUNGS: Clear to auscultation bilaterally. HEART: irregular rate and rhythm without murmur, normal S1, S2, no S3 or S4. ABDOMEN: Obese, Nontender, nondistended EXTREMITIES: Both lower extremities are markedly edematous, brawny, ruborous ( a bit more on the right). No calf TTP. Sensation is grossly intact. Pulses are easily audible with Doppler on the right NEUROLOGIC: Alert and oriented, normal speech and coordination. DERMATOLOGIC: On the right heel there is a mostly denuded vesicle with part of the flap still intact. There is 4 cm open area, pink, minimal serous fluid draining. The right ft on the ball of the foot and part of the lateral borders are slightly warmer to touch and more ruborous than on the left. Nontender. There is a chronic appearing patch of eschar on the R. plantar surface of the middle toe Initial Vital Signs Initial Vital Signs: Vital Signs Temperature 98.4 F 06/06/18 17:04 Pulse Rate 72 06/06/18 17:04 Respiratory Rate 20 06/06/18 17:04 Blood Pressure 156/67 H 06/06/18 17:04 Pulse Oximetry 91 06/06/18 17:04 <Elijah Robertson DO - Last Filed: 06/06/18 23:23> Initial Vital Signs Initial Vital Signs: Vital Signs Temperature 98.4 F 06/06/18 17:04 Pulse Rate 72 06/06/18 17:04 Respiratory Rate 20 06/06/18 17:04 Blood Pressure 156/67 H 06/06/18 17:04 Pulse Oximetry 91 06/06/18 17:04 Course <Serena Benitez PA-C - Last Filed: 06/06/18 22:04> Additional Information: I spoke with Dr. Narvaez regarding findings and lab work. She stated that she could not tell from pictures whether patient had any cellulitis on the right heel and wanted to have this checked. She has not noted any acutely worsening edema on her recent exams. She has also been treated for an open wound on the left leg which has chronic Pseudomonas but is healing. She is on daily Cipro currently. Reviewed findings of denuded vesicle , chronic edema which appears at baseline to me along with venous stasis. She does have mild increased erythema and warmth on the left foot. She has what appears to be eschar perhaps over a thickened vesicle on the R. 3rd toe, but that does not appear to be new from today. Dr. Narvaez agrees that patient can be discharged and f/u with wound care next week Orders Ordered: ED Orders 06/06/18 17:35 B Type Natriuretic Peptide Stat Complete Blood Count AUTO DIFF Stat Comprehensive Metabolic Panel Stat Lactate (Lactic Acid) Stat Partial Thromboplastin Time Stat Prothrombin Time INR Stat 06/06/18 17:59 XR chest 1V Stat Vital Signs - 8 hr 06/06/18 17:04 06/06/18 18:01 06/06/18 19:00 Temperature 98.4 F Pulse Rate 72 72 78 Respiratory Rate 20 18 19 Blood Pressure 156/67 H Blood Pressure [Right Wrist] 162/81 H 169/92 H Pulse Oximetry 91 92 92 06/06/18 19:33 Temperature Pulse Rate 92 H Respiratory Rate 14 Blood Pressure 107/81 Blood Pressure [Right Wrist] Pulse Oximetry 99 <Elijah Robertson DO - Last Filed: 06/06/18 23:23> Orders Ordered: ED Orders 06/06/18 17:35 B Type Natriuretic Peptide Stat Complete Blood Count AUTO DIFF Stat Comprehensive Metabolic Panel Stat Lactate (Lactic Acid) Stat Partial Thromboplastin Time Stat Prothrombin Time INR Stat 06/06/18 17:59 XR chest 1V Stat Vital Signs - 8 hr 06/06/18 17:04 06/06/18 18:01 06/06/18 19:00 Temperature 98.4 F Pulse Rate 72 72 78 Respiratory Rate 20 18 19 Blood Pressure 156/67 H Blood Pressure [Right Wrist] 162/81 H 169/92 H Pulse Oximetry 91 92 92 06/06/18 19:33 Temperature Pulse Rate 92 H Respiratory Rate 14 Blood Pressure 107/81 Blood Pressure [Right Wrist] Pulse Oximetry 99 MDM - Wound/Laceration <Serena Benitez PA-C - Last Filed: 06/06/18 22:04> Lab Data Attestation: I reviewed the patient's lab results. Result diagrams: 06/06/18 17:35 06/06/18 17:35 Lab Results 06/06/18 06/06/18 06/06/18 Range/Units 17:35 17:35 17:35 WBC 12.8 H (4.5-11.0) X10^3/uL RBC 4.29 (4.0-5.2) X10^6/uL Hgb 12.2 (12.0-16.0) g/dL Hct 38.7 (36-46) % MCV 90.1 (80-100) fL MCH 28.4 (26-34) PG MCHC 31.5 (30-36) % RDW 16.4 H (11.6-14.8) % Plt Count 275 (150-400) X10^3/uL Neut % (Auto) 54.0 (50-75) % Lymph % (Auto) 14.6 L (25-40) % Cla[place]orne % (Auto) 30.3 H (3-14) % Eos % (Auto) 0.6 L (2-4) % Baso % (Auto) 0.5 (0-2) % Neut # (Auto) 6900 (7855-5683) /uL Lymph # (Auto) 1900 (7831-5433) /uL Claiborne # (Auto) 3900 H (0-900) /uL Eos # (Auto) 100 (0-450) /uL Baso # (Auto) 100 (0-100) /uL PT 13.5 H (10.1-12.7) SECONDS INR 1.2 (0.9-1.3) APTT 38 H D (26.4-36.2) SECONDS Sodium 140 (137-145) mmol/L Potassium 4.7 (3.4-5.1) mmol/L Chloride 98 (98-107) mmol/L Carbon Dioxide 31 (22-32) mmol/L BUN 16 (7-17) mg/dL Creatinine 1.00 (0.52-1.04) mg/dL Estimated GFR 53.9 L (>60) mL/min BUN/Creatinine Ratio 16.0 (6-22) Glucose 259 H (80-110) mg/dL Lactate (0.7-2.1) mmol/L Calcium 9.3 (8.4-10.2) mg/dL Total Bilirubin 0.3 (0.2-1.3) mg/dL AST 14 (14-36) IU/L ALT 16 (9-52) IU/L Alkaline Phosphatase 87 (38-126) U/L B-Natriuretic Peptide (<100) Total Protein 8.3 H (6.3-8.2) g/dL Albumin 4.3 (3.5-5.0) g/dL Globulin 4.0 (1.7-4.1) g/dL Albumin/Globulin Ratio 1.1 (1.0-2.8) 06/06/18 06/06/18 Range/Units 17:35 17:35 WBC (4.5-11.0) X10^3/uL RBC (4.0-5.2) X10^6/uL Hgb (12.0-16.0) g/dL Hct (36-46) % MCV (80-100) fL MCH (26-34) PG MCHC (30-36) % RDW (11.6-14.8) % Plt Count (150-400) X10^3/uL Neut % (Auto) (50-75) % Lymph % (Auto) (25-40) % Claiborne % (Auto) (3-14) % Eos % (Auto) (2-4) % Baso % (Auto) (0-2) % Neut # (Auto) (6810-3794) /uL Lymph # (Auto) (8130-5640) /uL Claiborne # (Auto) (0-900) /uL Eos # (Auto) (0-450) /uL Baso # (Auto) (0-100) /uL PT (10.1-12.7) SECONDS INR (0.9-1.3) APTT (26.4-36.2) SECONDS Sodium (137-145) mmol/L Potassium (3.4-5.1) mmol/L Chloride (98-107) mmol/L Carbon Dioxide (22-32) mmol/L BUN (7-17) mg/dL Creatinine (0.52-1.04) mg/dL Estimated GFR (>60) mL/min BUN/Creatinine Ratio (6-22) Glucose (80-110) mg/dL Lactate 1.8 (0.7-2.1) mmol/L Calcium (8.4-10.2) mg/dL Total Bilirubin (0.2-1.3) mg/dL AST (14-36) IU/L ALT (9-52) IU/L Alkaline Phosphatase (38-126) U/L B-Natriuretic Peptide < 100 (<100) Total Protein (6.3-8.2) g/dL Albumin (3.5-5.0) g/dL Globulin (1.7-4.1) g/dL Albumin/Globulin Ratio (1.0-2.8) Imaging Data Chest x-ray: Radiologist's impression: [address] [address] XRay Report Signed Patient: Elena Danielson MR#: [id number] : 1940 Acct:[id number] Age/Sex: 77 / F Date of Service: 06/06/18 Loc: ED Accession Number: [id number] Procedure: XR chest 1V Ordering Provider: Serena Benitez P.A-C PROCEDURE: XR CHEST 1V INDICATIONS: edema TECHNIQUE: One view of the chest was acquired. [facility]. FINDINGS: Surgical changes and devices: Previous PICC line has been removed. Lungs and pleura: No pleural effusions or pneumothorax. Increased pulmonary vascularity is noted. Mediastinum: Mediastinal contours appear normal. Heart size is enlarged. Bones and chest wall: No suspicious bony lesions. Overlying soft tissues appear unremarkable. IMPRESSION: Premie with increased vascularity suggestive of edema. Dictated by: Trinity Moncada M.D. on 06/06/2018 at 18:22 Approved by: Trinity Moncada M.D. on 06/06/2018 at 18:23 <Elijah Robertson DO - Last Filed: 06/06/18 23:23> Lab Data Lab Results 06/06/18 06/06/18 06/06/18 Range/Units 17:35 17:35 17:35 WBC 12.8 H (4.5-11.0) X10^3/uL RBC 4.29 (4.0-5.2) X10^6/uL Hgb 12.2 (12.0-16.0) g/dL Hct 38.7 (36-46) % MCV 90.1 (80-100) fL MCH 28.4 (26-34) PG MCHC 31.5 (30-36) % RDW 16.4 H (11.6-14.8) % Plt Count 275 (150-400) X10^3/uL Neut % (Auto) 54.0 (50-75) % Lymph % (Auto) 14.6 L (25-40) % Cla[place]orne % (Auto) 30.3 H (3-14) % Eos % (Auto) 0.6 L (2-4) % Baso % (Auto) 0.5 (0-2) % Neut # (Auto) 6900 (2362-5330) /uL Lymph # (Auto) 1900 (3455-6315) /uL [place]orne # (Auto) 3900 H (0-900) /uL Eos # (Auto) 100 (0-450) /uL Baso # (Auto) 100 (0-100) /uL PT 13.5 H (10.1-12.7) SECONDS INR 1.2 (0.9-1.3) APTT 38 H D (26.4-36.2) SECONDS Sodium 140 (137-145) mmol/L Potassium 4.7 (3.4-5.1) mmol/L Chloride 98 (98-107) mmol/L Carbon Dioxide 31 (22-32) mmol/L BUN 16 (7-17) mg/dL Creatinine 1.00 (0.52-1.04) mg/dL Estimated GFR 53.9 L (>60) mL/min BUN/Creatinine Ratio 16.0 (6-22) Glucose 259 H (80-110) mg/dL Lactate (0.7-2.1) mmol/L Calcium 9.3 (8.4-10.2) mg/dL Total Bilirubin 0.3 (0.2-1.3) mg/dL AST 14 (14-36) IU/L ALT 16 (9-52) IU/L Alkaline Phosphatase 87 (38-126) U/L B-Natriuretic Peptide (<100) Total Protein 8.3 H (6.3-8.2) g/dL Albumin 4.3 (3.5-5.0) g/dL Globulin 4.0 (1.7-4.1) g/dL Albumin/Globulin Ratio 1.1 (1.0-2.8) 06/06/18 06/06/18 Range/Units 17:35 17:35 WBC (4.5-11.0) X10^3/uL RBC (4.0-5.2) X10^6/uL Hgb (12.0-16.0) g/dL Hct (36-46) % MCV (80-100) fL MCH (26-34) PG MCHC (30-36) % RDW (11.6-14.8) % Plt Count (150-400) X10^3/uL Neut % (Auto) (50-75) % Lymph % (Auto) (25-40) % [place] % (Auto) (3-14) % Eos % (Auto) (2-4) % Baso % (Auto) (0-2) % Neut # (Auto) (8124-1538) /uL Lymph # (Auto) (0451-4862) /uL Claiborne # (Auto) (0-900) /uL Eos # (Auto) (0-450) /uL Baso # (Auto) (0-100) /uL PT (10.1-12.7) SECONDS INR (0.9-1.3) APTT (26.4-36.2) SECONDS Sodium (137-145) mmol/L Potassium (3.4-5.1) mmol/L Chloride (98-107) mmol/L Carbon Dioxide (22-32) mmol/L BUN (7-17) mg/dL Creatinine (0.52-1.04) mg/dL Estimated GFR (>60) mL/min BUN/Creatinine Ratio (6-22) Glucose (80-110) mg/dL Lactate 1.8 (0.7-2.1) mmol/L Calcium (8.4-10.2) mg/dL Total Bilirubin (0.2-1.3) mg/dL AST (14-36) IU/L ALT (9-52) IU/L Alkaline Phosphatase (38-126) U/L B-Natriuretic Peptide < 100 (<100) Total Protein (6.3-8.2) g/dL Albumin (3.5-5.0) g/dL Globulin (1.7-4.1) g/dL Albumin/Globulin Ratio (1.0-2.8) Discharge Plan Departure Patient Disposition: SNF Clinical Impression: Open wound of right foot Discharge Date/Time: 06/06/18 19:25 Interventions: ED Discharge Assessment Last Done: 06/06/18 19:33 Activity Restrictions/Additional Instructions: I have reviewed your exam and labwork today with Dr. Narvaez and she agrees that you can return to [facility]. Please be sure to follow up with wound care early next week to reassess your right heel as well as the thickened , dark area on your middle toe (I don't think that is new today). I think that you may already have an appointment with wound care but if you do not please have the facility call. You will continue your current antibiotic that you are already on for now <Elijah Robertson DO - Last Filed: 06/06/18 23:23> [facility] ED Attending Mally Attestation: I was immediately available in the department for consultation. Documentation has been reviewed. I agree with assessment and plan.
[2018-06-06 17:44] LABS: Add Manual Diff / Slide Review NO; Basophils Absolute Auto 100 /uL (0-100); Basophils Percent Auto 0.5 % (0-2); Eosinophils Absolute Auto 100 /uL (0-450); Eosinophils Percent Auto 0.6 % (2-4); Hematocrit 38.7 % (36-46); Hemoglobin 12.2 g/dL (12.0-16.0); Lymphocytes Absolute Auto 1900 /uL (1100-4500); Lymphocytes Percent Auto 14.6 % (25-40); Mean Corpuscular HGB Conc 31.5 % (30-36); Mean Corpuscular Hemoglobin 28.4 PG (26-34); Mean Corpuscular Volume 90.1 fL (80-100); Monocytes Absolute Auto 3900 /uL (0-900); Monocytes Percent Auto 30.3 % (3-14); Neutrophils Absolute Auto 6900 /uL (1500-7000); Platelet Count 275 X10^3/uL (150-400); Red Blood Cell Count 4.29 X10^6/uL (4.0-5.2); Red Cell Distribution Width 16.4 % (11.6-14.8); White Blood Cell Count 12.8 X10^3/uL (4.5-11.0)
[2018-06-06 17:50] LABS: INR 1.2 (0.9-1.3); Prothrombin Time 13.5 SECONDS (10.1-12.7)
[2018-06-06 17:53] LABS: PTT Partial Thromboplastin Tim 38 SECONDS (26.4-36.2)
[2018-06-06 17:54] LABS: Lactate (Lactic Acid) 1.8 mmol/L (0.7-2.1)
--- NOTE | 2018-06-06 17:54 | PC.NURSE ---
pt reports that she was at the gym at the [facility]term and a large blister on the bottom of her right foot broke open. wound is approx 4cm.. area around blister is erythematous. pt second toe is black. pt reports that the facility knows about her toe. pt has doppler pulses in her right foot.
[2018-06-06 17:55] LABS: Alanine Aminotransferase 16 IU/L (9-52); Albumin 4.3 g/dL (3.5-5.0); Albumin Globulin Ratio 1.1 (1.0-2.8); Alkaline Phosphatase 87 U/L (38-126); Aspartate Aminotransferase 14 IU/L (14-36); Bilirubin Total 0.3 mg/dL (0.2-1.3); Blood Urea Nitrogen 16 mg/dL (7-17); Calcium 9.3 mg/dL (8.4-10.2); Carbon Dioxide 31 mmol/L (22-32); Chloride 98 mmol/L (98-107); Estimated Glomerular Filt Rate 53.9 mL/min (>60); Glucose 259 mg/dL (80-110); HEMOLYSIS < 15 (0-50); Potassium 4.7 mmol/L (3.4-5.1); Sodium 140 mmol/L (137-145); Total Protein 8.3 g/dL (6.3-8.2)
--- NOTE | 2018-06-06 17:59 | DI.RAD.S_ITS ---
PROCEDURE: XR CHEST 1V INDICATIONS: edema TECHNIQUE: One view of the chest was acquired. COMPARISON: [facility], CR, XR CHEST FOR PICC 1V, 04/15/2018, 13:47. FINDINGS: Surgical changes and devices: Previous PICC line has been removed. Lungs and pleura: No pleural effusions or pneumothorax. Increased pulmonary vascularity is noted. Mediastinum: Mediastinal contours appear normal. Heart size is enlarged. Bones and chest wall: No suspicious bony lesions. Overlying soft tissues appear unremarkable. IMPRESSION: Premie with increased vascularity suggestive of edema. Dictated by: Trinity Moncada M.D. on 06/06/2018 at 18:22 Approved by: Trinity Moncada M.D. on 06/06/2018 at 18:23
[2018-06-06 18:01] VITALS: BP 162/81; PULSE 72; RESP 18; O2SAT 92
[2018-06-06 18:02] LABS: B Type Natriuretic Peptide < 100 (<100)
[2018-06-06 19:00] VITALS: BP 169/92; PULSE 78; RESP 19; O2SAT 92
[2018-06-06 19:33] VITALS: BP 107/81; PULSE 92; RESP 14; O2SAT 99
== END 2018-06-06 19:25 ==
PROVIDERS: Emergency Provider Internal Medicine; Family Provider Internal Medicine; PCP Internal Medicine
DX: S91.301A Unspecified open wound, right foot, initial encounter (principal)
CPT/HCPCS: 36591; 71045; 80053; 83605; 83880; 85025; 85610; 85730; 99284

== ENCOUNTER → 2018-06-12 10:52 | Outpatient (CLI) | payer MEDICARE, OTHER, MEDICAID, SELFPAY ==
[2018-04-14 18:23] VITALS: BMI 54.3
== END ==
PROVIDERS: Family Provider Internal Medicine; PCP Internal Medicine; Visit Provider Family Medicine
DX: E11.621 Type 2 diabetes mellitus with foot ulcer (principal); L97.518 Non-pressure chronic ulcer of other part of right foot with other specified severity; L97.511 Non-pressure chronic ulcer of other part of right foot limited to breakdown of skin; S81.802A Unspecified open wound, left lower leg, initial encounter; L08.9 Local infection of the skin and subcutaneous tissue, unspecified; B96.5 Pseudomonas (aeruginosa) (mallei) (pseudomallei) as the cause of diseases classified elsewhere; L03.115 Cellulitis of right lower limb
CPT/HCPCS: 11042; 11045; 87070; 87075; 87077; 87147; 87186; 87205; 93005; 93010; 97597; 99213

== ENCOUNTER → 2018-06-12 14:48 | Outpatient (CLI) | payer MEDICARE, MEDICAID, SELFPAY ==
[2018-04-14 18:23] VITALS: BMI 54.3
== END ==
PROVIDERS: Family Provider Internal Medicine; PCP Internal Medicine; Visit Provider Internal Medicine
DX: R94.31 Abnormal electrocardiogram [ECG] [EKG] (principal)
CPT/HCPCS: 93005; 93010

== ENCOUNTER → 2018-06-19 13:52 | Outpatient (CLI) | payer MEDICARE, OTHER, MEDICAID, SELFPAY ==
[2018-04-14 18:23] VITALS: BMI 54.3
== END ==
PROVIDERS: Family Provider Internal Medicine; PCP Internal Medicine; Visit Provider Family Medicine
DX: E11.621 Type 2 diabetes mellitus with foot ulcer (principal); L97.511 Non-pressure chronic ulcer of other part of right foot limited to breakdown of skin; S81.802A Unspecified open wound, left lower leg, initial encounter; L03.116 Cellulitis of left lower limb; A49.01 Methicillin susceptible Staphylococcus aureus infection, unspecified site
CPT/HCPCS: 11042; 11045; 99212; 99213

== ENCOUNTER → 2018-06-26 10:00 | Outpatient (CLI) | payer MEDICARE, OTHER, MEDICAID, SELFPAY ==
[2018-04-14 18:23] VITALS: BMI 54.3
== END ==
PROVIDERS: Family Provider Internal Medicine; PCP Internal Medicine; Visit Provider Family Medicine
DX: E11.621 Type 2 diabetes mellitus with foot ulcer (principal); L97.515 Non-pressure chronic ulcer of other part of right foot with muscle involvement without evidence of necrosis; S81.802A Unspecified open wound, left lower leg, initial encounter; L03.115 Cellulitis of right lower limb; A49.01 Methicillin susceptible Staphylococcus aureus infection, unspecified site
CPT/HCPCS: 11042; 11045

== ENCOUNTER → 2018-07-03 10:16 | Outpatient (CLI) | payer MEDICARE, OTHER, MEDICAID, SELFPAY ==
[2018-04-14 18:23] VITALS: BMI 54.3
== END ==
PROVIDERS: Family Provider Internal Medicine; PCP Internal Medicine; Visit Provider Family Medicine
DX: E11.621 Type 2 diabetes mellitus with foot ulcer (principal); L97.512 Non-pressure chronic ulcer of other part of right foot with fat layer exposed; S81.802A Unspecified open wound, left lower leg, initial encounter
CPT/HCPCS: 11042; 11045

== ENCOUNTER → 2018-07-10 14:13 | Outpatient (CLI) | payer MEDICARE, OTHER, MEDICAID, SELFPAY ==
[2018-04-14 18:23] VITALS: BMI 54.3
== END ==
PROVIDERS: Family Provider Internal Medicine; PCP Internal Medicine; Visit Provider Family Medicine
DX: E11.621 Type 2 diabetes mellitus with foot ulcer (principal); L97.515 Non-pressure chronic ulcer of other part of right foot with muscle involvement without evidence of necrosis; S81.802A Unspecified open wound, left lower leg, initial encounter
CPT/HCPCS: 11042; 11043; 11045; 99214

== ENCOUNTER → 2018-07-15 10:22 | Outpatient (CLI) | payer MEDICARE, OTHER, MEDICAID, SELFPAY ==
[2018-04-14 18:23] VITALS: BMI 54.3
--- NOTE | 2018-07-15 | DI.RAD.S_ITS ---
PROCEDURE: XR CHEST 2V INDICATIONS: HBOT TECHNIQUE: 2 views of the chest were acquired. COMPARISON: [facility], , XR CHEST 1V, 06/06/2018, 18:23. FINDINGS: Surgical changes and devices: None. Lungs and pleura: Low lung volumes with scattered subsegmental atelectasis/scarring. . No pleural effusions or pneumothorax. Mediastinum: Mediastinal contours are normal. Heart size is normal. Bones and chest wall: No suspicious bony abnormalities. Soft tissues appear unremarkable. IMPRESSION: No acute disease Dictated by: Renzo David M.D. on 07/15/2018 at 13:08 Approved by: Renzo David M.D. on 07/15/2018 at 13:09
== END ==
PROVIDERS: PCP Internal Medicine; Visit Provider Family Medicine
DX: Z01.818 Encounter for other preprocedural examination (principal); E11.621 Type 2 diabetes mellitus with foot ulcer; L97.515 Non-pressure chronic ulcer of other part of right foot with muscle involvement without evidence of necrosis; S81.802A Unspecified open wound, left lower leg, initial encounter
CPT/HCPCS: 71046

== ENCOUNTER → 2018-07-17 10:13 | Outpatient (CLI) | payer MEDICARE, OTHER, MEDICAID, SELFPAY ==
[2018-04-14 18:23] VITALS: BMI 54.3
== END ==
PROVIDERS: PCP Internal Medicine; Visit Provider Family Medicine
DX: E11.621 Type 2 diabetes mellitus with foot ulcer (principal); L97.515 Non-pressure chronic ulcer of other part of right foot with muscle involvement without evidence of necrosis; S81.802A Unspecified open wound, left lower leg, initial encounter; L03.116 Cellulitis of left lower limb
CPT/HCPCS: 11043

== ENCOUNTER → 2018-07-21 08:27 | Outpatient (REF) | payer MEDICARE, MEDICAID, SELFPAY ==
[2018-04-14 18:23] VITALS: BMI 54.3
[2018-07-21 10:17] LABS: Hemoglobin A1C% w Est Avg Glu 8.5 % (4.0-6.0)
== END ==
LOC: LAB 08:27
PROVIDERS: PCP Internal Medicine; Visit Provider Internal Medicine
DX: E11.9 Type 2 diabetes mellitus without complications (principal)
CPT/HCPCS: 36415; 83036

== ENCOUNTER → 2018-07-24 13:02 | Outpatient (CLI) | payer MEDICARE, OTHER, MEDICAID, SELFPAY ==
[2018-04-14 18:23] VITALS: BMI 54.3
== END ==
PROVIDERS: PCP Internal Medicine; Visit Provider Family Medicine
DX: E11.621 Type 2 diabetes mellitus with foot ulcer (principal); L97.515 Non-pressure chronic ulcer of other part of right foot with muscle involvement without evidence of necrosis; S81.802A Unspecified open wound, left lower leg, initial encounter
CPT/HCPCS: 11042; 11043; 11045

== ENCOUNTER → 2018-07-31 14:04 | Outpatient (CLI) | payer MEDICARE, OTHER, MEDICAID, SELFPAY ==
[2018-04-14 18:23] VITALS: BMI 54.3
== END ==
PROVIDERS: PCP Internal Medicine; Visit Provider Family Medicine
DX: E11.621 Type 2 diabetes mellitus with foot ulcer (principal); L97.513 Non-pressure chronic ulcer of other part of right foot with necrosis of muscle; S81.802A Unspecified open wound, left lower leg, initial encounter
CPT/HCPCS: 11042; 11043; 11045

== ENCOUNTER → 2018-08-04 09:08 | Outpatient (CLI) | payer MEDICARE, OTHER, MEDICAID, SELFPAY ==
[2018-04-14 18:23] VITALS: BMI 54.3
== END ==
PROVIDERS: PCP Internal Medicine; Visit Provider Family Medicine
DX: S81.802A Unspecified open wound, left lower leg, initial encounter (principal); L97.515 Non-pressure chronic ulcer of other part of right foot with muscle involvement without evidence of necrosis; E11.621 Type 2 diabetes mellitus with foot ulcer
CPT/HCPCS: 99183; G0277

== ENCOUNTER → 2018-08-05 08:30 | Outpatient (CLI) | payer MEDICARE, OTHER, MEDICAID, SELFPAY ==
[2018-04-14 18:23] VITALS: BMI 54.3
== END ==
PROVIDERS: PCP Internal Medicine; Visit Provider Family Medicine
DX: S81.802A Unspecified open wound, left lower leg, initial encounter (principal); E11.621 Type 2 diabetes mellitus with foot ulcer; L97.515 Non-pressure chronic ulcer of other part of right foot with muscle involvement without evidence of necrosis
CPT/HCPCS: 99183; G0277

== ENCOUNTER → 2018-08-05 11:17 | Outpatient (CLI) | payer MEDICARE, OTHER, MEDICAID, SELFPAY ==
[2018-04-14 18:23] VITALS: BMI 54.3
--- NOTE | 2018-08-05 | DI.RAD.S_ITS ---
PROCEDURE: XR FOOT RT MIN 3V INDICATIONS: PLANTAX 5TH METATARSAL HEAD TECHNIQUE: 3 views of the foot were acquired. COMPARISON: [facility], CR, XR FOOT RT MIN 3V, 06/13/2018, 13:45. FINDINGS: Bones: No fractures or dislocations. No suspicious bony lesions. There is slight cortical loss along the lateral aspect of fifth metatarsal head suspicious for infection, and this appears progressed since the prior study. Evaluation again limited due to diffuse osteopenia. Severe first MTP joint degeneration. Diffuse hindfoot and midfoot osteoarthritis. Superimposed periarticular osteopenia at the MTP joints IMPRESSION: Slight loss of the cortex raises the possibility of fifth metatarsal head osteomyelitis. Recommend clinical correlation and if necessary further evaluation with contrast-enhanced MRI could be performed versus continued short interval radiographic surveillance Marginal lucencies appear more prominent at the first, fourth MTP joints raises the possibility of additional erosive changes, unspecified etiology. These would also be better assessed with contrast-enhanced MRI Dictated by: Renzo David M.D. on 08/05/2018 at 15:26 Approved by: Renzo David M.D. on 08/05/2018 at 15:32
== END ==
PROVIDERS: PCP Internal Medicine; Visit Provider Family Medicine
DX: S81.802A Unspecified open wound, left lower leg, initial encounter (principal); E11.621 Type 2 diabetes mellitus with foot ulcer; L97.519 Non-pressure chronic ulcer of other part of right foot with unspecified severity
CPT/HCPCS: 73630; G0277

== ENCOUNTER → 2018-08-06 10:10 | Outpatient (CLI) | payer MEDICARE, OTHER, MEDICAID, SELFPAY ==
[2018-04-14 18:23] VITALS: BMI 54.3
== END ==
PROVIDERS: PCP Internal Medicine; Visit Provider Family Medicine
DX: E11.621 Type 2 diabetes mellitus with foot ulcer (principal); L97.515 Non-pressure chronic ulcer of other part of right foot with muscle involvement without evidence of necrosis; S81.802A Unspecified open wound, left lower leg, initial encounter
CPT/HCPCS: 99183; G0277

== ENCOUNTER → 2018-08-07 10:46 | Outpatient (CLI) | payer MEDICARE, OTHER, MEDICAID, SELFPAY ==
[2018-04-14 18:23] VITALS: BMI 54.3
== END ==
PROVIDERS: PCP Internal Medicine; Visit Provider Family Medicine
DX: E11.621 Type 2 diabetes mellitus with foot ulcer (principal); L97.515 Non-pressure chronic ulcer of other part of right foot with muscle involvement without evidence of necrosis; S81.802A Unspecified open wound, left lower leg, initial encounter
CPT/HCPCS: 99183; G0277

== ENCOUNTER → 2018-08-08 13:29 | Outpatient (CLI) | payer MEDICARE, OTHER, MEDICAID, SELFPAY ==
[2018-04-14 18:23] VITALS: BMI 54.3
== END ==
PROVIDERS: PCP Internal Medicine; Visit Provider Family Medicine
DX: E11.621 Type 2 diabetes mellitus with foot ulcer (principal); S81.802A Unspecified open wound, left lower leg, initial encounter; L97.513 Non-pressure chronic ulcer of other part of right foot with necrosis of muscle; L08.9 Local infection of the skin and subcutaneous tissue, unspecified
CPT/HCPCS: 11042; 11044; 11045; 87070; 87077; 87147; 87186; 87205; 99183; G0277

== ENCOUNTER → 2018-08-11 14:08 | Outpatient (REF) | payer MEDICARE, MEDICAID, SELFPAY ==
[2018-04-14 18:23] VITALS: BMI 54.3
[2018-08-11 14:32] LABS: Influenza A and B by PCR Rapid Negative (Negative)
== END ==
LOC: LAB 14:08
PROVIDERS: PCP Internal Medicine; Visit Provider Internal Medicine
DX: J00 Acute nasopharyngitis [common cold] (principal)
CPT/HCPCS: 87400

== ENCOUNTER → 2018-08-13 08:08 | Outpatient (REF) | payer MEDICARE, MEDICAID, SELFPAY ==
[2018-04-14 18:23] VITALS: BMI 54.3
[2018-08-13 08:49] LABS: Add Manual Diff / Slide Review NO; Basophils Absolute Auto 100 /uL (0-100); Basophils Percent Auto 0.6 % (0-2); Eosinophils Absolute Auto 0 /uL (0-450); Eosinophils Percent Auto 0.5 % (2-4); Hematocrit 41.8 % (36-46); Hemoglobin 13.4 g/dL (12.0-16.0); Lymphocytes Absolute Auto 2700 /uL (1100-4500); Lymphocytes Percent Auto 31.1 % (25-40); Mean Corpuscular HGB Conc 32.1 % (30-36); Mean Corpuscular Hemoglobin 28.2 PG (26-34); Mean Corpuscular Volume 87.9 fL (80-100); Monocytes Absolute Auto 2400 /uL (0-900); Neutrophils Absolute Auto 3400 /uL (1500-7000); Neutrophils Percent Auto 39.8 % (50-75); Platelet Count 221 X10^3/uL (150-400); Red Blood Cell Count 4.76 X10^6/uL (4.0-5.2); Red Cell Distribution Width 16.9 % (11.6-14.8); White Blood Cell Count 8.6 X10^3/uL (4.5-11.0)
[2018-08-13 09:05] LABS: Alanine Aminotransferase 20 IU/L (9-52); Albumin 4.1 g/dL (3.5-5.0); Alkaline Phosphatase 79 U/L (38-126); Aspartate Aminotransferase 16 IU/L (14-36); BUN Creatinine Ratio 22.2 (6-22); Bilirubin Total 0.3 mg/dL (0.2-1.3); Blood Urea Nitrogen 20 mg/dL (7-17); Calcium 9.4 mg/dL (8.4-10.2); Carbon Dioxide 33 mmol/L (22-32); Chloride 98 mmol/L (98-107); Estimated Glomerular Filt Rate > 60.0 mL/min (>60); Glucose 68 mg/dL (80-110); HEMOLYSIS < 15 (0-50); Potassium 3.8 mmol/L (3.4-5.1); Sodium 141 mmol/L (137-145); Total Protein 8.1 g/dL (6.3-8.2)
== END ==
LOC: LAB 08:08
PROVIDERS: PCP Internal Medicine; Visit Provider Nurse Practitioner Family
DX: J06.9 Acute upper respiratory infection, unspecified (principal); N18.9 Chronic kidney disease, unspecified
CPT/HCPCS: 36415; 80053; 85025

== ENCOUNTER → 2018-08-14 13:34 | Outpatient (CLI) | payer MEDICARE, OTHER, MEDICAID, SELFPAY ==
[2018-08-20 13:25] VITALS: BMI 54.3
== END ==
PROVIDERS: PCP Internal Medicine; Visit Provider Family Medicine
DX: E11.621 Type 2 diabetes mellitus with foot ulcer (principal); L97.513 Non-pressure chronic ulcer of other part of right foot with necrosis of muscle; S81.802A Unspecified open wound, left lower leg, initial encounter; L03.116 Cellulitis of left lower limb; M86.171 Other acute osteomyelitis, right ankle and foot
CPT/HCPCS: 11042; 11043; 11045; 99214

== ENCOUNTER → 2018-08-20 09:09 | Outpatient (CLI) | payer MEDICARE, OTHER, MEDICAID, SELFPAY ==
[2018-04-14 18:23] VITALS: BMI 54.3
== END ==
PROVIDERS: PCP Internal Medicine; Visit Provider Family Medicine
DX: S81.802A Unspecified open wound, left lower leg, initial encounter (principal); E11.621 Type 2 diabetes mellitus with foot ulcer; L97.515 Non-pressure chronic ulcer of other part of right foot with muscle involvement without evidence of necrosis
CPT/HCPCS: 99183; G0277

== ENCOUNTER → 2018-08-21 13:05 | Outpatient (CLI) | payer MEDICARE, OTHER, MEDICAID, SELFPAY ==
[2018-08-20 13:25] VITALS: BMI 54.3
== END ==
PROVIDERS: PCP Internal Medicine; Visit Provider Family Medicine
DX: E11.621 Type 2 diabetes mellitus with foot ulcer (principal); L97.513 Non-pressure chronic ulcer of other part of right foot with necrosis of muscle; S81.802A Unspecified open wound, left lower leg, initial encounter; M86.671 Other chronic osteomyelitis, right ankle and foot
CPT/HCPCS: 11042; 11043; 11046

== ENCOUNTER → 2018-08-25 08:50 | Outpatient (CLI) | payer MEDICARE, OTHER, MEDICAID, SELFPAY ==
[2018-08-20 13:25] VITALS: BMI 54.3
== END ==
PROVIDERS: PCP Internal Medicine; Visit Provider Family Medicine
DX: E11.621 Type 2 diabetes mellitus with foot ulcer (principal); L97.515 Non-pressure chronic ulcer of other part of right foot with muscle involvement without evidence of necrosis; S81.802A Unspecified open wound, left lower leg, initial encounter
CPT/HCPCS: 99183; G0277

== ENCOUNTER → 2018-08-26 13:00 | Outpatient (CLI) | payer MEDICARE, OTHER, MEDICAID, SELFPAY ==
[2018-08-20 13:25] VITALS: BMI 54.3
== END ==
PROVIDERS: PCP Internal Medicine; Visit Provider Family Medicine
DX: E11.621 Type 2 diabetes mellitus with foot ulcer (principal); L97.515 Non-pressure chronic ulcer of other part of right foot with muscle involvement without evidence of necrosis; S81.802A Unspecified open wound, left lower leg, initial encounter
CPT/HCPCS: 99183; G0277

== ENCOUNTER → 2018-08-27 09:55 | Outpatient (CLI) | payer MEDICARE, OTHER, MEDICAID, SELFPAY ==
[2018-08-20 13:25] VITALS: BMI 54.3
== END ==
PROVIDERS: PCP Internal Medicine; Visit Provider Family Medicine
DX: S81.802A Unspecified open wound, left lower leg, initial encounter (principal); E11.621 Type 2 diabetes mellitus with foot ulcer; L97.515 Non-pressure chronic ulcer of other part of right foot with muscle involvement without evidence of necrosis
CPT/HCPCS: 99183; G0277

== ENCOUNTER → 2018-08-28 09:50 | Outpatient (CLI) | payer MEDICARE, OTHER, MEDICAID, SELFPAY ==
[2018-08-20 13:25] VITALS: BMI 54.3
== END ==
PROVIDERS: PCP Internal Medicine; Visit Provider Family Medicine
DX: S81.802A Unspecified open wound, left lower leg, initial encounter (principal); E11.621 Type 2 diabetes mellitus with foot ulcer; L97.515 Non-pressure chronic ulcer of other part of right foot with muscle involvement without evidence of necrosis
CPT/HCPCS: 11042; 11045; 99183; G0277

== ENCOUNTER → 2018-08-29 14:08 | Outpatient (CLI) | payer MEDICARE, OTHER, MEDICAID, SELFPAY ==
[2018-08-20 13:25] VITALS: BMI 54.3
== END ==
PROVIDERS: PCP Internal Medicine; Visit Provider Family Medicine
DX: S81.802A Unspecified open wound, left lower leg, initial encounter (principal); E11.621 Type 2 diabetes mellitus with foot ulcer; L97.515 Non-pressure chronic ulcer of other part of right foot with muscle involvement without evidence of necrosis
CPT/HCPCS: 99183; G0277

== ENCOUNTER → 2018-09-01 13:39 | Outpatient (CLI) | payer MEDICARE, OTHER, MEDICAID, SELFPAY ==
[2018-08-20 13:25] VITALS: BMI 54.3
== END ==
PROVIDERS: PCP Internal Medicine; Visit Provider Family Medicine
DX: S81.802A Unspecified open wound, left lower leg, initial encounter (principal); E11.621 Type 2 diabetes mellitus with foot ulcer; L97.515 Non-pressure chronic ulcer of other part of right foot with muscle involvement without evidence of necrosis
CPT/HCPCS: 99183; G0277

== ENCOUNTER → 2018-09-02 14:41 | Outpatient (CLI) | payer MEDICARE, OTHER, MEDICAID, SELFPAY ==
[2018-08-20 13:25] VITALS: BMI 54.3
== END ==
PROVIDERS: PCP Internal Medicine; Visit Provider Family Medicine
DX: S81.802A Unspecified open wound, left lower leg, initial encounter (principal); E11.621 Type 2 diabetes mellitus with foot ulcer; L97.515 Non-pressure chronic ulcer of other part of right foot with muscle involvement without evidence of necrosis
CPT/HCPCS: 99183; G0277

== ENCOUNTER → 2018-09-03 13:51 | Outpatient (CLI) | payer MEDICARE, OTHER, MEDICAID, SELFPAY ==
[2018-08-20 13:25] VITALS: BMI 54.3
== END ==
PROVIDERS: PCP Internal Medicine; Visit Provider Family Medicine
DX: S81.802A Unspecified open wound, left lower leg, initial encounter (principal); E11.621 Type 2 diabetes mellitus with foot ulcer; L97.515 Non-pressure chronic ulcer of other part of right foot with muscle involvement without evidence of necrosis
CPT/HCPCS: 99183; G0277

== ENCOUNTER → 2018-09-04 11:14 | Outpatient (CLI) | payer MEDICARE, OTHER, MEDICAID, SELFPAY ==
[2018-08-20 13:25] VITALS: BMI 54.3
== END ==
PROVIDERS: PCP Internal Medicine; Visit Provider Family Medicine
DX: S81.802A Unspecified open wound, left lower leg, initial encounter (principal); E11.621 Type 2 diabetes mellitus with foot ulcer; L97.515 Non-pressure chronic ulcer of other part of right foot with muscle involvement without evidence of necrosis
CPT/HCPCS: 11042; 11045; 99183; 99213; G0277

== ENCOUNTER → 2018-09-05 11:27 | Outpatient (CLI) | payer MEDICARE, OTHER, MEDICAID, SELFPAY ==
[2018-08-20 13:25] VITALS: BMI 54.3
== END ==
PROVIDERS: PCP Internal Medicine; Visit Provider Family Medicine
DX: E11.621 Type 2 diabetes mellitus with foot ulcer (principal); L97.515 Non-pressure chronic ulcer of other part of right foot with muscle involvement without evidence of necrosis; S81.802A Unspecified open wound, left lower leg, initial encounter
CPT/HCPCS: 99183; G0277

== ENCOUNTER → 2018-09-08 11:43 | Outpatient (CLI) | payer MEDICARE, OTHER, MEDICAID, SELFPAY ==
[2018-08-20 13:25] VITALS: BMI 54.3
== END ==
PROVIDERS: PCP Internal Medicine; Visit Provider Family Medicine
DX: E11.621 Type 2 diabetes mellitus with foot ulcer (principal); L97.515 Non-pressure chronic ulcer of other part of right foot with muscle involvement without evidence of necrosis; S81.802A Unspecified open wound, left lower leg, initial encounter
CPT/HCPCS: 99183; G0277

== ENCOUNTER → 2018-09-09 13:12 | Outpatient (CLI) | payer MEDICARE, OTHER, MEDICAID, SELFPAY ==
[2018-08-20 13:25] VITALS: BMI 54.3
== END ==
PROVIDERS: PCP Internal Medicine; Visit Provider Family Medicine
DX: E11.621 Type 2 diabetes mellitus with foot ulcer (principal); L97.515 Non-pressure chronic ulcer of other part of right foot with muscle involvement without evidence of necrosis; S81.802A Unspecified open wound, left lower leg, initial encounter
CPT/HCPCS: 99183; G0277

== ENCOUNTER → 2018-09-10 13:35 | Outpatient (CLI) | payer MEDICARE, OTHER, MEDICAID, SELFPAY ==
[2018-08-20 13:25] VITALS: BMI 54.3
== END ==
PROVIDERS: PCP Internal Medicine; Visit Provider Family Medicine
DX: E11.621 Type 2 diabetes mellitus with foot ulcer (principal); L97.515 Non-pressure chronic ulcer of other part of right foot with muscle involvement without evidence of necrosis; S81.802A Unspecified open wound, left lower leg, initial encounter
CPT/HCPCS: 99183; G0277

== ENCOUNTER → 2018-09-11 14:43 | Outpatient (CLI) | payer MEDICARE, OTHER, MEDICAID, SELFPAY ==
[2018-08-20 13:25] VITALS: BMI 54.3
== END ==
PROVIDERS: PCP Internal Medicine; Visit Provider Family Medicine
DX: E11.621 Type 2 diabetes mellitus with foot ulcer (principal); L97.514 Non-pressure chronic ulcer of other part of right foot with necrosis of bone; S81.802A Unspecified open wound, left lower leg, initial encounter; M86.671 Other chronic osteomyelitis, right ankle and foot
CPT/HCPCS: 99183; G0277

== ENCOUNTER → 2018-09-12 11:09 | Outpatient (CLI) | payer MEDICARE, OTHER, MEDICAID, SELFPAY ==
[2018-08-20 13:25] VITALS: BMI 54.3
== END ==
PROVIDERS: PCP Internal Medicine; Visit Provider Family Medicine
DX: E11.621 Type 2 diabetes mellitus with foot ulcer (principal); L97.515 Non-pressure chronic ulcer of other part of right foot with muscle involvement without evidence of necrosis; S81.802A Unspecified open wound, left lower leg, initial encounter
CPT/HCPCS: 99183; G0277

== ENCOUNTER → 2018-09-15 13:16 | Outpatient (CLI) | payer MEDICARE, OTHER, MEDICAID, SELFPAY ==
[2018-08-20 13:25] VITALS: BMI 54.3
== END ==
PROVIDERS: PCP Internal Medicine; Visit Provider Family Medicine
DX: E11.621 Type 2 diabetes mellitus with foot ulcer (principal); L97.515 Non-pressure chronic ulcer of other part of right foot with muscle involvement without evidence of necrosis; S81.802A Unspecified open wound, left lower leg, initial encounter
CPT/HCPCS: 99183; G0277

== ENCOUNTER → 2018-09-16 13:33 | Outpatient (CLI) | payer MEDICARE, OTHER, MEDICAID, SELFPAY ==
[2018-08-20 13:25] VITALS: BMI 54.3
== END ==
PROVIDERS: PCP Internal Medicine; Visit Provider Family Medicine
DX: E11.621 Type 2 diabetes mellitus with foot ulcer (principal); L97.515 Non-pressure chronic ulcer of other part of right foot with muscle involvement without evidence of necrosis; S81.802A Unspecified open wound, left lower leg, initial encounter
CPT/HCPCS: 99183; G0277

== ENCOUNTER → 2018-09-17 13:27 | Outpatient (CLI) | payer MEDICARE, OTHER, MEDICAID, SELFPAY ==
[2018-08-20 13:25] VITALS: BMI 54.3
== END ==
PROVIDERS: PCP Internal Medicine; Visit Provider Family Medicine
DX: E11.621 Type 2 diabetes mellitus with foot ulcer (principal); L97.515 Non-pressure chronic ulcer of other part of right foot with muscle involvement without evidence of necrosis; S81.802A Unspecified open wound, left lower leg, initial encounter
CPT/HCPCS: 99183; G0277

== ENCOUNTER → 2018-09-18 11:01 | Outpatient (CLI) | payer MEDICARE, OTHER, MEDICAID, SELFPAY ==
[2018-08-20 13:25] VITALS: BMI 54.3
== END ==
PROVIDERS: PCP Internal Medicine; Visit Provider Family Medicine
DX: E11.621 Type 2 diabetes mellitus with foot ulcer (principal); L97.516 Non-pressure chronic ulcer of other part of right foot with bone involvement without evidence of necrosis; S81.802A Unspecified open wound, left lower leg, initial encounter; L03.116 Cellulitis of left lower limb; M86.671 Other chronic osteomyelitis, right ankle and foot
CPT/HCPCS: 11042; 87070; 87075; 87077; 87147; 87186; 87205; 99183; G0277

== ENCOUNTER → 2018-09-19 13:32 | Outpatient (CLI) | payer MEDICARE, OTHER, MEDICAID, SELFPAY ==
[2018-08-20 13:25] VITALS: BMI 54.3
== END ==
PROVIDERS: PCP Internal Medicine; Visit Provider Family Medicine
DX: E11.621 Type 2 diabetes mellitus with foot ulcer (principal); L97.515 Non-pressure chronic ulcer of other part of right foot with muscle involvement without evidence of necrosis; S81.802A Unspecified open wound, left lower leg, initial encounter
CPT/HCPCS: 99183; G0277

== ENCOUNTER → 2018-09-22 15:27 | Outpatient (CLI) | payer MEDICARE, OTHER, MEDICAID, SELFPAY ==
[2018-08-20 13:25] VITALS: BMI 54.3
== END ==
PROVIDERS: PCP Internal Medicine; Visit Provider Family Medicine
DX: E11.621 Type 2 diabetes mellitus with foot ulcer (principal); L97.515 Non-pressure chronic ulcer of other part of right foot with muscle involvement without evidence of necrosis; S81.802A Unspecified open wound, left lower leg, initial encounter
CPT/HCPCS: 99183; G0277

== ENCOUNTER → 2018-09-23 13:35 | Outpatient (CLI) | payer MEDICARE, OTHER, MEDICAID, SELFPAY ==
[2018-08-20 13:25] VITALS: BMI 54.3
== END ==
PROVIDERS: PCP Internal Medicine; Visit Provider Family Medicine
DX: E11.621 Type 2 diabetes mellitus with foot ulcer (principal); L97.515 Non-pressure chronic ulcer of other part of right foot with muscle involvement without evidence of necrosis; S81.802A Unspecified open wound, left lower leg, initial encounter
CPT/HCPCS: 99183; G0277

== ENCOUNTER → 2018-09-24 14:16 | Outpatient (CLI) | payer MEDICARE, OTHER, MEDICAID, SELFPAY ==
[2018-08-20 13:25] VITALS: BMI 54.3
== END ==
PROVIDERS: PCP Internal Medicine; Visit Provider Family Medicine
DX: E11.621 Type 2 diabetes mellitus with foot ulcer (principal); L97.515 Non-pressure chronic ulcer of other part of right foot with muscle involvement without evidence of necrosis; S81.802A Unspecified open wound, left lower leg, initial encounter
CPT/HCPCS: 99183; G0277

== ENCOUNTER → 2018-09-25 11:17 | Outpatient (CLI) | payer MEDICARE, OTHER, MEDICAID, SELFPAY ==
[2018-08-20 13:25] VITALS: BMI 54.3
== END ==
PROVIDERS: PCP Internal Medicine; Visit Provider Family Medicine
DX: E11.621 Type 2 diabetes mellitus with foot ulcer (principal); L97.516 Non-pressure chronic ulcer of other part of right foot with bone involvement without evidence of necrosis; S81.802A Unspecified open wound, left lower leg, initial encounter; M86.671 Other chronic osteomyelitis, right ankle and foot; B96.5 Pseudomonas (aeruginosa) (mallei) (pseudomallei) as the cause of diseases classified elsewhere; B95.61 Methicillin susceptible Staphylococcus aureus infection as the cause of diseases classified elsewhere
CPT/HCPCS: 11042; 99183; 99214; G0277

== ENCOUNTER → 2018-09-30 14:41 | Outpatient (CLI) | payer MEDICARE, OTHER, MEDICAID, SELFPAY ==
[2018-08-20 13:25] VITALS: BMI 54.3
== END ==
PROVIDERS: PCP Internal Medicine; Visit Provider Family Medicine
DX: E11.621 Type 2 diabetes mellitus with foot ulcer (principal); L97.515 Non-pressure chronic ulcer of other part of right foot with muscle involvement without evidence of necrosis
CPT/HCPCS: 99183; G0277

== ENCOUNTER → 2018-10-01 14:42 | Outpatient (CLI) | payer MEDICARE, OTHER, MEDICAID, SELFPAY ==
[2018-08-20 13:25] VITALS: BMI 54.3
== END ==
PROVIDERS: PCP Internal Medicine; Visit Provider Family Medicine
DX: L97.515 Non-pressure chronic ulcer of other part of right foot with muscle involvement without evidence of necrosis (principal); E11.621 Type 2 diabetes mellitus with foot ulcer
CPT/HCPCS: 99183; G0277

== ENCOUNTER → 2018-10-02 14:31 | Outpatient (CLI) | payer MEDICARE, OTHER, MEDICAID, SELFPAY ==
[2018-08-20 13:25] VITALS: BMI 54.3
== END ==
PROVIDERS: PCP Internal Medicine; Visit Provider Family Medicine
DX: E11.621 Type 2 diabetes mellitus with foot ulcer (principal); L97.512 Non-pressure chronic ulcer of other part of right foot with fat layer exposed; S81.802A Unspecified open wound, left lower leg, initial encounter; M86.671 Other chronic osteomyelitis, right ankle and foot; B95.61 Methicillin susceptible Staphylococcus aureus infection as the cause of diseases classified elsewhere; B96.5 Pseudomonas (aeruginosa) (mallei) (pseudomallei) as the cause of diseases classified elsewhere
CPT/HCPCS: 17250; 99183; G0277

== ENCOUNTER → 2018-10-03 13:17 | Outpatient (CLI) | payer MEDICARE, OTHER, MEDICAID, SELFPAY ==
[2018-08-20 13:25] VITALS: BMI 54.3
== END ==
PROVIDERS: PCP Internal Medicine; Visit Provider Family Medicine
DX: E11.621 Type 2 diabetes mellitus with foot ulcer (principal); L97.515 Non-pressure chronic ulcer of other part of right foot with muscle involvement without evidence of necrosis
CPT/HCPCS: 99183; G0277

== ENCOUNTER → 2018-10-06 14:25 | Outpatient (CLI) | payer MEDICARE, OTHER, MEDICAID, SELFPAY ==
[2018-08-20 13:25] VITALS: BMI 54.3
== END ==
PROVIDERS: PCP Internal Medicine; Visit Provider Family Medicine
DX: E11.621 Type 2 diabetes mellitus with foot ulcer (principal); L97.515 Non-pressure chronic ulcer of other part of right foot with muscle involvement without evidence of necrosis
CPT/HCPCS: 99183; G0277

== ENCOUNTER → 2018-10-09 15:36 | Outpatient (CLI) | payer MEDICARE, OTHER, MEDICAID, SELFPAY ==
[2018-08-20 13:25] VITALS: BMI 54.3
== END ==
PROVIDERS: PCP Internal Medicine; Visit Provider Family Medicine
DX: E11.621 Type 2 diabetes mellitus with foot ulcer (principal); L97.515 Non-pressure chronic ulcer of other part of right foot with muscle involvement without evidence of necrosis
CPT/HCPCS: 99183; 99213; G0277

== ENCOUNTER → 2018-10-10 15:23 | Outpatient (CLI) | payer MEDICARE, OTHER, MEDICAID, SELFPAY ==
[2018-08-20 13:25] VITALS: BMI 54.3
== END ==
PROVIDERS: PCP Internal Medicine; Visit Provider Family Medicine
DX: E11.621 Type 2 diabetes mellitus with foot ulcer (principal); L97.515 Non-pressure chronic ulcer of other part of right foot with muscle involvement without evidence of necrosis
CPT/HCPCS: 99183; G0277

== ENCOUNTER → 2018-10-13 13:43 | Outpatient (CLI) | payer MEDICARE, OTHER, MEDICAID, SELFPAY ==
[2018-08-20 13:25] VITALS: BMI 54.3
== END ==
PROVIDERS: PCP Internal Medicine; Visit Provider Family Medicine
DX: E11.621 Type 2 diabetes mellitus with foot ulcer (principal); L97.515 Non-pressure chronic ulcer of other part of right foot with muscle involvement without evidence of necrosis
CPT/HCPCS: 99183; G0277

== ENCOUNTER → 2018-10-14 13:11 | Outpatient (CLI) | payer MEDICARE, OTHER, MEDICAID, SELFPAY ==
[2018-08-20 13:25] VITALS: BMI 54.3
== END ==
PROVIDERS: PCP Internal Medicine; Visit Provider Family Medicine
DX: E11.621 Type 2 diabetes mellitus with foot ulcer (principal); L97.515 Non-pressure chronic ulcer of other part of right foot with muscle involvement without evidence of necrosis
CPT/HCPCS: 99183; G0277

== ENCOUNTER → 2018-10-15 12:10 | Outpatient (CLI) | payer MEDICARE, OTHER, MEDICAID, SELFPAY ==
[2018-08-20 13:25] VITALS: BMI 54.3
== END ==
PROVIDERS: PCP Internal Medicine; Visit Provider Family Medicine
DX: E11.621 Type 2 diabetes mellitus with foot ulcer (principal); L97.515 Non-pressure chronic ulcer of other part of right foot with muscle involvement without evidence of necrosis
CPT/HCPCS: 11042; 99183; G0277

== ENCOUNTER → 2018-10-17 07:53 | Outpatient (ROUT) | payer MEDICARE, MEDICAID, SELFPAY ==
[2018-08-20 13:25] VITALS: BMI 54.3
[2018-10-17 09:06] LABS: Erythrocyte Sedimentation Rate 30 MM/HR (0-20)
[2018-10-17 09:13] LABS: C-Reactive Protein Quant 1.3 mg/dL (<1.0)
== END ==
PROVIDERS: PCP Internal Medicine; Visit Provider Family Medicine
DX: M86.671 Other chronic osteomyelitis, right ankle and foot (principal); L97.514 Non-pressure chronic ulcer of other part of right foot with necrosis of bone
CPT/HCPCS: 36415; 85651; 86140

== ENCOUNTER → 2018-10-17 14:00 | Outpatient (CLI) | payer MEDICARE, OTHER, MEDICAID, SELFPAY ==
[2018-08-20 13:25] VITALS: BMI 54.3
--- NOTE | 2018-10-17 | DI.RAD.S_ITS ---
PROCEDURE: XR FOOT RT MIN 3V INDICATIONS: FOLLOW OSTEO TECHNIQUE: 3 views of the foot were acquired. COMPARISON: [facility], CR, XR FOOT RT MIN 3V, 08/05/2018, 11:29. FINDINGS: Bones: There has been interval further destruction of the fifth metatarsal head with dystrophic calcifications in the soft tissue and medial subluxation of the MTP joint. Progressive loss of cortex visualized seen along the plantar medial aspect of the second metatarsal head and to a lesser extent fourth. There is been interval stabilization of erosive change along the lateral aspect at the first MTP joint. Soft tissues: No tibiotalar joint effusion. Achilles tendon appears normal. Mild forefoot soft tissue swelling. Possible underlying plantar ulcer adjacent to the fifth metatarsal. No soft tissue gas evident. IMPRESSION: Findings suspicious for progression of osteomyelitis involving the fifth metatarsal head. Questionable loss of cortex involving the second and fourth metatarsal heads may indicate early osteomyelitis. Clinical correlation with overlying skin changes recommended. If the patient is able, MR imaging with contrast is recommended for confirmation. Dictated by: Allie Dockery M.D. on 10/17/2018 at 15:12 Approved by: Allie Dockery M.D. on 10/17/2018 at 15:18
== END ==
PROVIDERS: PCP Internal Medicine; Visit Provider Internal Medicine
DX: M86.671 Other chronic osteomyelitis, right ankle and foot (principal); E11.621 Type 2 diabetes mellitus with foot ulcer; L97.514 Non-pressure chronic ulcer of other part of right foot with necrosis of bone
CPT/HCPCS: 73630

== ENCOUNTER → 2018-10-22 11:48 | Outpatient (CLI) | payer MEDICARE, OTHER, MEDICAID, SELFPAY ==
[2018-08-20 13:25] VITALS: BMI 54.3
== END ==
PROVIDERS: PCP Internal Medicine; Visit Provider Family Medicine
DX: E11.621 Type 2 diabetes mellitus with foot ulcer (principal); L97.514 Non-pressure chronic ulcer of other part of right foot with necrosis of bone; S81.802A Unspecified open wound, left lower leg, initial encounter; M86.671 Other chronic osteomyelitis, right ankle and foot; B96.5 Pseudomonas (aeruginosa) (mallei) (pseudomallei) as the cause of diseases classified elsewhere; B95.61 Methicillin susceptible Staphylococcus aureus infection as the cause of diseases classified elsewhere
CPT/HCPCS: 11042; 87070; 87075; 87077; 87186; 87205

== ENCOUNTER → 2018-10-28 10:50 | Outpatient (CLI) | payer MEDICARE, OTHER, MEDICAID, SELFPAY ==
[2018-08-20 13:25] VITALS: BMI 54.3
== END ==
PROVIDERS: PCP Internal Medicine; Visit Provider Family Medicine
DX: E11.621 Type 2 diabetes mellitus with foot ulcer (principal); L97.514 Non-pressure chronic ulcer of other part of right foot with necrosis of bone; S81.802A Unspecified open wound, left lower leg, initial encounter; M86.671 Other chronic osteomyelitis, right ankle and foot; B96.5 Pseudomonas (aeruginosa) (mallei) (pseudomallei) as the cause of diseases classified elsewhere; B95.7 Other staphylococcus as the cause of diseases classified elsewhere; L08.9 Local infection of the skin and subcutaneous tissue, unspecified
CPT/HCPCS: 11042; 99214

== ENCOUNTER → 2018-11-04 11:10 | Outpatient (CLI) | payer MEDICARE, OTHER, MEDICAID, SELFPAY ==
[2018-08-20 13:25] VITALS: BMI 54.3
== END ==
PROVIDERS: PCP Internal Medicine; Visit Provider Family Medicine
DX: E11.621 Type 2 diabetes mellitus with foot ulcer (principal); L97.514 Non-pressure chronic ulcer of other part of right foot with necrosis of bone; S81.802A Unspecified open wound, left lower leg, initial encounter; M86.671 Other chronic osteomyelitis, right ankle and foot; B96.5 Pseudomonas (aeruginosa) (mallei) (pseudomallei) as the cause of diseases classified elsewhere; B95.61 Methicillin susceptible Staphylococcus aureus infection as the cause of diseases classified elsewhere; B95.7 Other staphylococcus as the cause of diseases classified elsewhere; L08.9 Local infection of the skin and subcutaneous tissue, unspecified
CPT/HCPCS: 11042; 87070; 87075; 87176; 87205

== ENCOUNTER → 2018-11-11 15:41 | Outpatient (CLI) | payer MEDICARE, OTHER, MEDICAID, SELFPAY ==
[2018-08-20 13:25] VITALS: BMI 54.3
== END ==
PROVIDERS: PCP Internal Medicine; Visit Provider Family Medicine
DX: E11.621 Type 2 diabetes mellitus with foot ulcer (principal); L97.516 Non-pressure chronic ulcer of other part of right foot with bone involvement without evidence of necrosis; I87.2 Venous insufficiency (chronic) (peripheral); L97.222 Non-pressure chronic ulcer of left calf with fat layer exposed; M86.671 Other chronic osteomyelitis, right ankle and foot; B96.5 Pseudomonas (aeruginosa) (mallei) (pseudomallei) as the cause of diseases classified elsewhere; B95.61 Methicillin susceptible Staphylococcus aureus infection as the cause of diseases classified elsewhere
CPT/HCPCS: 11042

== ENCOUNTER → 2018-11-12 15:15 | Outpatient (CLI) | payer MEDICARE, MEDICAID, OTHER, SELFPAY ==
[2018-08-20 13:25] VITALS: BMI 54.3
--- NOTE | 2018-11-12 | DI.US.S_ITS ---
PROCEDURE: US ARTERIAL DUPLEX LE RT INDICATIONS: EVALUATE FOR STENOSIS, NON HEALING WOUND TECHNIQUE: Color and pulse Doppler interrogation was performed of the right lower extremity arterial system, with image documentation. COMPARISON: None. FINDINGS: Normal-appearing, triphasic waveforms are seen throughout. The flow velocities are likewise within normal limits. No focal area of increased flow velocity is seen to suggest a focal stenosis. Antegrade flow is confirmed to the distal aspects of each of the trifurcation vessels. This study is limited by body habitus. IMPRESSION: No hemodynamically significant stenosis can be seen. Dictated by: Mike Reid M.D. on 11/12/2018 at 16:06 Approved by: Mike Reid M.D. on 11/12/2018 at 16:07
== END ==
PROVIDERS: PCP Internal Medicine; Visit Provider Family Medicine
DX: L97.514 Non-pressure chronic ulcer of other part of right foot with necrosis of bone (principal); S81.802A Unspecified open wound, left lower leg, initial encounter; I10 Essential (primary) hypertension; E11.9 Type 2 diabetes mellitus without complications; E78.5 Hyperlipidemia, unspecified; Z87.891 Personal history of nicotine dependence
CPT/HCPCS: 93926

== ENCOUNTER → 2018-11-13 14:44 | Outpatient (CLI) | payer MEDICARE, OTHER, MEDICAID, SELFPAY ==
[2018-08-20 13:25] VITALS: BMI 54.3
== END ==
PROVIDERS: PCP Internal Medicine; Visit Provider Family Medicine
DX: E11.621 Type 2 diabetes mellitus with foot ulcer (principal); L97.511 Non-pressure chronic ulcer of other part of right foot limited to breakdown of skin; L03.116 Cellulitis of left lower limb; I87.2 Venous insufficiency (chronic) (peripheral); L97.822 Non-pressure chronic ulcer of other part of left lower leg with fat layer exposed; M79.674 Pain in right toe(s)
CPT/HCPCS: 29581

== ENCOUNTER → 2018-11-19 10:19 | Outpatient (ROUT) | payer MEDICARE, OTHER, MEDICAID, SELFPAY ==
[2018-08-20 13:25] VITALS: BMI 54.3
[2018-11-19 10:38] LABS: Add Manual Diff / Slide Review NO; Basophils Absolute Auto 0 /uL (0-100); Basophils Percent Auto 0.3 % (0-2); Eosinophils Absolute Auto 100 /uL (0-450); Eosinophils Percent Auto 0.6 % (2-4); Hematocrit 37.9 % (36-46); Hemoglobin 12.3 g/dL (12.0-16.0); Lymphocytes Absolute Auto 2200 /uL (1100-4500); Lymphocytes Percent Auto 24.4 % (25-40); Mean Corpuscular HGB Conc 32.6 % (30-36); Mean Corpuscular Hemoglobin 29.6 PG (26-34); Mean Corpuscular Volume 91.1 fL (80-100); Monocytes Absolute Auto 2200 /uL (0-900); Monocytes Percent Auto 24.7 % (3-14); Neutrophils Absolute Auto 4400 /uL (1500-7000); Platelet Count 211 X10^3/uL (150-400); Red Blood Cell Count 4.16 X10^6/uL (4.0-5.2); Red Cell Distribution Width 15.5 % (11.6-14.8); White Blood Cell Count 8.8 X10^3/uL (4.5-11.0)
[2018-11-19 10:46] LABS: Hemoglobin A1C% w Est Avg Glu 7.6 % (4.0-6.0)
[2018-11-19 11:11] LABS: BUN Creatinine Ratio 22.5 (6-22); Blood Urea Nitrogen 18 mg/dL (7-17); C-Reactive Protein Quant 1.4 mg/dL (<1.0); Calcium 9.2 mg/dL (8.4-10.2); Carbon Dioxide 32 mmol/L (22-32); Chloride 100 mmol/L (98-107); Estimated Glomerular Filt Rate > 60.0 mL/min (>60); Glucose 130 mg/dL (80-110); HEMOLYSIS < 15 (0-50); Potassium 3.9 mmol/L (3.4-5.1); Sodium 141 mmol/L (137-145)
[2018-11-19 11:17] LABS: Erythrocyte Sedimentation Rate 28 MM/HR (0-20)
== END ==
PROVIDERS: PCP Internal Medicine; Visit Provider Internal Medicine
DX: R73.9 Hyperglycemia, unspecified (principal)
CPT/HCPCS: 36415; 80048; 83036; 85025; 85651; 86140

== ENCOUNTER → 2018-11-20 15:30 | Outpatient (CLI) | payer MEDICARE, OTHER, MEDICAID, SELFPAY ==
[2018-08-20 13:25] VITALS: BMI 54.3
== END ==
PROVIDERS: PCP Internal Medicine; Visit Provider Family Medicine
DX: E11.621 Type 2 diabetes mellitus with foot ulcer (principal); L97.511 Non-pressure chronic ulcer of other part of right foot limited to breakdown of skin; I87.2 Venous insufficiency (chronic) (peripheral); L97.222 Non-pressure chronic ulcer of left calf with fat layer exposed; M86.671 Other chronic osteomyelitis, right ankle and foot; B95.61 Methicillin susceptible Staphylococcus aureus infection as the cause of diseases classified elsewhere; B96.5 Pseudomonas (aeruginosa) (mallei) (pseudomallei) as the cause of diseases classified elsewhere
CPT/HCPCS: 11042; 87070; 87075; 87077; 87205; 97597

== ENCOUNTER 2018-11-26 17:11 | Inpatient (IN) | payer MEDICARE, OTHER, MEDICAID, SELFPAY ==
[2018-08-20 13:25] VITALS: BMI 54.3
[2018-11-19 15:15] VITALS: BMI 50.9
[2018-11-26] VITALS (13 sets, daily range): BP systolic 111–158; BP diastolic 56–80; PULSE 60–78; RESP 12–24; TEMP 36.2–36.8; O2SAT 92–97; BMI 50.9
--- NOTE | 2018-11-26 | PATH_ITS ---
[facility] Accession Number: [id number] . 01 Material submitted: . bone - RIGHT FIFTH METATARSAL . 01 Diagnosis: Bone, Right Fifth Metatarsal, Excision: Trabecular bone with evidence of remodeling and marrow space with mild fibrosis and scattered plasma cells. See comment. MRV/12/03/2018 . 01 Comment: The features are compatible wit mild chronic osteomyelitis. Clinical radiologic correlation is recommended. . 01 Electronically signed: . Amy Ardon MD, Pathologist NPI- [id number] . 01 Gross description: . Received in formalin, labeled R fifth metatarsal head, is a pale martinez resected bone (3.0 x 1.5 x 0.8 cm) with attached markham-yellow unremarkable soft tissue. The bone is hard and cannot be sliced with a scalpel. The resection margin is inked blue. Rod Buster Helper serial sections are decalcified and submitted in cassette A1. ([id number]) /FRR . 01 Pathologist provided ICD-10: M86.672 . 01 CPT . 203127, 535324 Performed at: [address] [facility] [address], [place], [place] [id number] MD Jean Pierre Jacinto MD Phone: [phone]
--- NOTE | 2018-11-26 14:01 | PM.PREOP ---
Pre-operative Note Interval Note History & Physical reviewed/Exam performed by Physician: Yes Changes to H&P: No
[2018-11-26] MEDS: LACTATED RINGERS 1,000 ML 42 ML IV (14:05)
[2018-11-26] MEDS: CEFAZOLIN 1 GM/50 ML FROZ.PIGGY IV (14:40)
[2018-11-26] MEDS: CEFAZOLIN 2 GM/100 ML FROZ.PIGGY IV (14:40)
--- NOTE | 2018-11-26 14:50 | SUR.PREOP ---
Pt is not a very good historian. Med list completed as best this RN was able to do based on information obtained. Spoke with MARTHA Logan from [facility] and requested fax for all meds given in the last 24 hours but the list only provide the start and end dates.
--- NOTE | 2018-11-26 15:13 | SUR.OPER ---
Supine on padded OR bed, head on pillow, arms secured on padded arm boards at <90 degrees abduction, legs uncrossed, safety belt at thigh, tape over blanket over lower left leg.
[2018-11-26] MEDS: BUPIVACAINE 0.25% W/ EPI 30 ML VIAL INJ (15:47)
--- NOTE | 2018-11-26 16:49 | PM.PNPO.1 ---
Subjective Date Patient Seen: 11/26/18 Time Patient Seen: 16:50 Interval history: Postop day 0 status post right foot 5th metatarsal head excision and wound closure for osteomyelitis and diabetic foot ulcer. Partial weight-bearing on the right as tolerated. Patient has not quite worn and sometimes so her standard the activity is fine. Patient's previous cultures had grown Staph aureus staph epi and Pseudomonas. Brief phone conversation with Dr. Vasques Infect[facility] [place] counting this morning recommended a starting with antibiotics IV daptomycin and IV Zosyn based on previous cultures. Will followup deep cultures taken from the wound today in surgery. If these grow different organisms then will call Dr. Vasques again discuss antibiotic tailoring. Otherwise plan for 4 weeks IV dap so and IV Zosyn. Patient to get PICC line. Monitor CMP, CBC with diff, CRP and ESR weekly. Follow up in orthopedic clinic in 2 weeks. Sutures will remain in place is likely 6 weeks. DC back to patient's [facility] sniff which is [facility] once antibiotics are ranged. Exam Vital Signs (past 8 hours): - 11/26/18 13:51 11/26/18 16:28 11/26/18 16:33 Temperature 97.8 F 97.1 F L 97.1 F L Pulse Rate 78 61 66 Respiratory Rate 16 19 24 Blood Pressure 138/80 124/56 L 120/56 L Pulse Oximetry 93 92 97 11/26/18 16:43 Temperature 97.1 F L Pulse Rate 62 Respiratory Rate 12 Blood Pressure 136/64 Pulse Oximetry 96 Oxygen Delivery Method Nasal Cannula Oxygen Flow Rate 2 Assessment & Plan Post-op Postoperative Procedures Operation Date: 11/26/18 14:45 Actual Procedures Side Surgeon p I&D 5th metatarsal-deep Right Kusum Murcia MD STATUS POST 5TH METATARSAL HEAD AND EXCISION AND WOUND CLOSURE RIGHT FOOT OSTEOMYELITIS DIABETIC FOOT ULCER --DRESSING CHANGES NEEDED. --PATIENT HAS CATHETER AT BASELINE. SCDS. RESTART ELIQUIS POSTOP DAY 1 FOR DVT PROPHYLAXIS AND FOR HER BASELINE AFIB. WILL GET PICC LINE FOR IV ANTIBIOTICS. STARTING WITH DAPTOMYCIN AND ZOSYN. TAILOR APPROPRIATE. ONCE ANTIBIOTICS FINALIZE DISCHARGE BACK TO [facility] IF ORGANISMS SAME PREVIOUS THEN A DC ON DAPTOMYCIN AND ZOSYN PLAN 6 WEEKS IV ANTIBIOTICS Quality VTE Deep Vein Thrombosis/Pulmonary Embolism Present on Admission: No
--- NOTE | 2018-11-26 16:57 | P.OP_ITS ---
Operative Date/Time/Diagnoses Date of procedure: 11/26/18 Time of procedure: 15:00 Pre-op diagnosis: DIABETIC ULCER RIGHT FOOT ASSOCIATED WITH DIABETES TYPE 2 WITH INVOLVEMENT OF BONE CHRONIC OSTEOMYELITIS RIGHT FOOT MORBID OBESITY Post-op diagnosis: same Procedure & Clinicians Procedure: 1. EXCISION METATARSAL BONE HEAD, 5TH METATARSAL RIGHT CPT CODE 48235 2. DEBRIDEMENT OF BONE MUSCLE AND FASCIA 20 SQ CM, RIGHT CPT CODE 70856 3. 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 THIS HAS BEEN NONHEALING DESPITE MULTIPLE ROUNDS OF ORAL ANTIBIOTICS IN OVER 40 TREATMENTS AND HYPERBARIC OXYGEN AND WOUND CARE. PATIENT HAS BEEN INDICATED FOR FORMAL OPERATIVE DEEP BONE BIOPSY, IRRIGATION DEBRIDEMENT AND 5TH METATARSAL HEAD EXCISION. SHE HAD NONINVASIVE VASCULAR TESTING THAT SHOWED GOOD FLOW AND SHE HAS PALPABLE PULSES. MOST RECENT HEMOGLOBIN A1C WAS 7.6. SHE HAS OBTAINED MEDICAL CLEARANCE. SHE IS HOLDING HER [employer] WHICH SHE TAKES FOR AFIB. THE RISKS BENEFITS AND ALTERNATIVES TO THE PROCEDURE WERE DISCUSSED WITH THE PATIENT IN DETAIL THESE INCLUDE BUT ARE NOT LIMITED TO INFECTION, DELAYED WOUND HEALING OR NONHEALING WOUNDS, PERSISTENT PAIN, DVT, PE, STROKE PARALYSIS OR , AMPUTATION. THE PATIENT HAS ELECTED TO PROCEED WITH SURGERY. CONSENT WAS SIGNED IN THE OFFICE. PLAN WILL BE ADMISSION TO THE HOSPITAL AFTER THE SURGERY AND IV ANTIBIOTICS. SHE WILL GET A PICC LINE. THERE WILL BE A CONSULT WITH INFECTIOUS DISE[place] AT [facility] [place] AND THE PATIENT WILL BE DISCHARGED BACK TO HER INTERMEDIATE FACILITY WITH APPROPRIATE ANTIBIOTICS. Surgeon: Kusum Murcia Click Yes if Unassisted: Yes Operative Notes Findings: APPROXIMATELY 2 X 2 CM ROUND PLANTAR LESION AT THE 5TH METATARSAL HEAD WITH EXPOSED BONE. IS HAS SOME OLD HEMATOMA TYPE OF BLOOD IN IT TODAY NO GROSS PURULENCE OR MALODOR. SKIN IS OTHERWISE INTACT WITH NO SURROUNDING ERYTHEMA. NO EVIDENCE OF ABSCESS. FIFTH METATARSAL HEAD IS EXCISED AND THIS IS SPLIT WITH A SAW FOR MICROBIOLOGY AND PATHOLOGY. BONE WAS NOTED TO BE MILDLY SOFT AND NEAR THE HEAD. NO OBVIOUS ABSCESS OR PURULENCE DEMONSTRATED. Closure Type: primary Specimen(s): other (BONE 5TH METATARSAL HEAD RIGHT FOOT FOR MICROBIOLOGY AND PATHOLOGY) Estimated Blood Loss (mL): 20 Blood products transfused: none Tourniquet time (min): 19 Procedure in detail: PATIENT WAS SEEN IN THE PREOPERATIVE AREA SITE OF SURGERY WAS MARKED AND INFORMED CONSENT CONFIRMED. SHE WAS BROUGHT BACK TO THE OPERATING ROOM BY THE ANESTHESIA TEAM. SPINAL ANESTHESIA WAS ADMINISTERED. THE PATIENT WAS THEN POSITIONED IN THE SUPINE POSITION OPERATIVE TABLE. SCD WAS PLACED ON THE CONTRALATERAL LOWER EXTREMITY. ALL BONY PROMINENCES WERE WELL PADDED. THE RIGHT LOWER EXTREMITY WAS PREPPED AND DRAPED IN THE STANDARD STERILE FASHION. A NONSTERILE ANKLE TOURNIQUET WAS PLACED. A FORMAL TIME-OUT PROCEDURE WAS PERFORMED CONFIRMING THE PATIENT'S SIDE AND SITE OF SURGERY PRESENCE OF INFORMED CONSENT AND ADMINISTRATION OF PREOPERATIVE ANTIBIOTICS. AN ATTEMPT WAS MADE TO HOLD THE ANTIBIOTICS UNTIL CULTURES WERE TAKEN HOWEVER THESE WERE INADVERTENTLY STARTED ADDITIONALLY THE PATIENT HAD BEEN ON OUTPATIENT ORAL ANTIBIOTICS. ONCE ALL WERE IN AGREEMENT ATTENTION WAS TURNED TO THE RIGHT LOWER EXTREMITY THE FOOT WAS ELEVATED FOR EXSANGUINATION WITH GRAVITY AND THE TOURNIQUET WAS ELEVATED TO 250 MM OF MERCURY AND STAYED THERE FOR APPROXIMATELY 19 MINUTES. ATTENTION WAS TURNED TO THE RIGHT FOOT THE PLANTAR ULCER WAS VISUALIZED AND A APPROXIMATELY 4 CM INCISION WAS MARKED ALONG THE LATERAL BORDER OF THE 5TH METATARSAL DISTALLY MEETING THE ULCERATION WITH A BILOBED TYPE FLAP COMPONENT DISTALLY FOR PLANNED ATTEMPTED CLOSURE OF THE ULCERATION THERE WAS NO GROSS PURULENCE OR OBVIOUS CONTAMINATION NOTED. THE C-ARM WAS BROUGHT IN WELL TO KADE THE ESTIMATED METATARSAL HEAD AND NECK EXCISION POINT. THEN ATTENTION WAS TURNED TO THE FOOT THE SCALP WAS USED TO OPEN UP THE SKIN THIS WAS TAKEN SHARPLY DOWN THROUGH THE SKIN AND SUBCUTANEOUS TISSUE DISSECTION WAS TAKEN DOWN TO THE METATARSAL BONE AND THE SOFT TISSUES WERE ELEVATED EXPOSING THE BONE. THE TP A SAW WAS USED TO CUT THE 5TH METATARSAL ON AN ANGLE TO AVOID PROMINENCE. THE 5TH METATARSAL HEAD WAS THEN REMOVED IN ITS ENTIRETY AND THEN SPLIT LENGTHWISE AND SENT FOR PATHOLOGY AND MICROBIOLOGY. SHARP DISSECTION AND A RONGEUR WERE USED TO DEBRIDE THE REMAINDER OF THE WOUND SOFT TISSUES AND THE ULCERATION EDGES A FRESHENING THESE UP. THEN THE WOUND WAS IRRIGATED WITH GREATER THAN 2 L OF SALINE WITH CYSTO TUBING. AGAIN THERE WAS NO GROSS PURULENCE OR NECROTIC TISSUE NOTED. THE TOURNIQUET WAS THEN RELEASED AND HEMOSTASIS ACHIEVED. THE WOUND WAS CLOSED IN LAYERS WITH 2 O PDS 4 0 MONOCRYL AND 3 0 AND 2 0 NYLON SUTURE. THE LOW ASPECT OF THE DISTAL TISSUE FLAP WAS ROTATED INTO THE ULCERATION CLOSING THIS DOWN WELL. ONCE THIS WAS COMPLETED A DRESSING WITH XEROFORM GAUZE KERLIX AND RORO WRAP WERE PLACED. AN ATTEMPT WAS MADE TO PLACE A INCISIONAL WOUND VAC THIS WAS OPENED ON THE BACK TABLE BUT THIS DID NOT ACHIEVE SUCTION AROUND THE TOE SO WAS EXCHANGED FOR A STANDARD DRESSING. PATIENT WAS AWOKEN FROM ANESTHESIA AND TAKEN TO THE RECOVERY ROOM IN GOOD CONDITION. ALL COUNTS WERE CORRECT. THERE WERE NO IMMEDIATE COMPLICATIONS FROM THIS PROCEDURE. Complications: none Condition: stable Disposition: Acute Care Plan for aftercare: THE PATIENT WILL BE ADMITTED TO THE FLOOR. SHE HAS BEEN NONAMBULATORY FOR QUITE SOME TIME BUT MAY PUT THE FOOT DOWN FOR BALANCE OR PARTIAL WEIGHT-BEARING IN A HARD-SOLED SHOE. SHE WILL GET IV ANTIBIOTICS. THESE WILL BE TAILORED BASED ON HER INTRAOPERATIVE CULTURES. SHE WILL BE DISCHARGED BACK TO HER SNIFF ONCE THE ANTIBIOTICS ARE FINALIZED. FOLLOW-UP IN THE ORTHOPEDIC OFFICE IN 2 WEEKS FOR WOUND CHECK. SUTURES WILL LIKELY STAY 4 WEEKS. SHE WILL USE SCDS FOR DVT PROPHYLAXIS AND RESTART HER ELIQUIS TOMORROW M SWETHAING.
--- NOTE | 2018-11-26 17:50 | DI.RAD.S_ITS ---
PROCEDURE: XR CHEST FOR PICC 1V INDICATIONS: line placement COMPARISON: [facility], CR, XR CHEST 2V, 07/15/2018, 10:28. FINDINGS: PICC was placed by the intravenous therapy team from the left side. Fluoroscopic spot film demonstrates tip of PICC projected over the cavoatrial junction. IMPRESSION: Tip of PICC is projected over the cavoatrial junction. Dictated by: Lucina Weeks M.D. on 11/26/2018 at 18:12 Approved by: Lucina Weeks M.D. on 11/26/2018 at 18:13
[2018-11-26] MEDS: SODIUM CHLORIDE 0.9% 250 ML 42 ML IV (20:02)
[2018-11-26] MEDS: PIPERACILLIN-TAZO 3.375 GM/50 ML FROZ.PIGGY IV (20:02)
[2018-11-26] MEDS: OXYCODONE ER 20 MG TAB PO (20:08)
[2018-11-26] MEDS: SODIUM CHLORIDE 0.9% IV (21:10)
[2018-11-26] MEDS: DAPTOMYCIN IV (21:10)
[2018-11-26] MEDS: GABAPENTIN 300 MG CAPSULE 900 MG PO (21:11)
[2018-11-26] MEDS: ACETAMINOPHEN 325 MG TABLET 975 MG PO (21:11)
[2018-11-26] MEDS: buPROPion SR 100 MG TAB PO (21:11)
[2018-11-26] MEDS: DOCUSATE 100 MG CAPSULE 200 MG PO (21:11)
[2018-11-26] MEDS: LISINOPRIL 10 MG TABLET PO (21:12)
[2018-11-26] MEDS: SENNOSIDES 8.6 MG TABLET 17.2 MG PO (21:13)
[2018-11-26] MEDS: MIRTAZAPINE 15 MG TABLET PO (21:13)
[2018-11-26] MEDS: NORTRIPTYLINE HCL 25 MG CAPSULE PO (21:13)
[2018-11-26] MEDS: INSULIN GLARGINE 100 UNIT/ML 10ML VIAL 57 UNIT SUBCUT (21:14)
--- NOTE | 2018-11-26 23:38 | PC.NURSE ---
patient has orders for SCD's however they do not fit around patient's legs, call placed to Dr. Murcia regarding this issues/concern. Per prov. verbal, if they do not fit then its okay to go without. Patient to cont. Elaquist in AM per JUL. Patient refused to be turned this katie to do a skin check on back side.
[2018-11-27] VITALS (12 sets, daily range): BP systolic 106–176; BP diastolic 47–90; PULSE 58–104; RESP 12–18; TEMP 36.1–36.9; O2SAT 88–99
[2018-11-27] MEDS: PIPERACILLIN-TAZO 3.375 GM/50 ML FROZ.PIGGY IV ×4 (01:26→19:51)
[2018-11-27] MEDS: SODIUM CHLORIDE 0.9% 250 ML 42 ML IV ×2 (03:54→09:38)
--- NOTE | 2018-11-27 04:17 | PC.NURSE ---
Assumed care of pt at 2300 on 11/26/18. Pt sleeping during bedside hand-off. Awakens to voice and touch for assessment. Denies pain or nausea. Drsg to BLE/feet c/d/i. Trans pt via usman to Cammie bed to help facilitate reposition. [id number] implemented for pressure injury prevention. Pt states she doesn't like to reposition and is very weak. Pressure injury education provided. Desats on RA 2L NC implemented. CPOX on. Door open for close monitoring. Bed alarm on.
[2018-11-27] MEDS: OXYCODONE ER 20 MG TAB PO ×2 (06:10→17:57)
[2018-11-27] MEDS: LEVOTHYROXINE 88 MCG TABLET PO (06:10)
[2018-11-27 06:28] LABS: Hematocrit 38.4 % (36-46); Hemoglobin 12.4 g/dL (12.0-16.0); Mean Corpuscular HGB Conc 32.4 % (30-36); Mean Corpuscular Hemoglobin 29.6 PG (26-34); Mean Corpuscular Volume 91.3 fL (80-100); Platelet Count 202 X10^3/uL (150-400); Red Cell Distribution Width 14.6 % (11.6-14.8); White Blood Cell Count 10.8 X10^3/uL (4.5-11.0)
[2018-11-27] MEDS: INSULIN ASPART 100 UNIT/ML INSULN PEN SUBCUT ×4 (09:18→21:00)
[2018-11-27] MEDS: INSULIN GLARGINE 100 UNIT/ML 10ML VIAL 57 UNIT SUBCUT ×2 (09:18→21:01)
[2018-11-27] MEDS: DOCUSATE 100 MG CAPSULE 200 MG PO ×2 (09:29→20:48)
[2018-11-27] MEDS: POTASSIUM CHLORIDE 10 MEQ TAB PO (09:29)
[2018-11-27] MEDS: SENNOSIDES 8.6 MG TABLET 17.2 MG PO ×2 (09:29→20:48)
[2018-11-27] MEDS: APIXABAN 5 MG TABLET PO ×2 (09:30→20:49)
[2018-11-27] MEDS: FUROSEMIDE 20 MG TABLET PO (09:30)
[2018-11-27] MEDS: ARIPiprazole 10 MG TABLET 2.5 MG PO (09:30)
[2018-11-27] MEDS: GABAPENTIN 300 MG CAPSULE 900 MG PO ×3 (09:30→21:00)
--- NOTE | 2018-11-27 09:30 | PT.IIE ---
Current Diagnoses Type 2 diabetes mellitus with foot ulcer (11/26/18) Type 2 diabetes mellitus without complications (11/26/18) Morbid (severe) obesity due to excess calories (11/26/18) Other chronic osteomyelitis, right ankle and foot (11/26/18) Surgery Performed Operation Date: 11/26/18 14:45 Actual Procedures p I&D 5th metatarsal-deep(Right) - Kusum Murcia MD Surgical History (Last Reviewed 06/06/18 @ 17:36 by Serena Benitez PA-C) History of bilateral knee replacement (Resolved) Medical History (Last Updated 11/20/18 @ 08:22 by Phoebe Rodriguez RN) Anemia (Chronic) Atherosclerotic heart disease of [place] coronary artery without angina pectoris (Chronic) Atrial fibrillation (Chronic) Chronic kidney disease, stage 3 (Chronic) Chronic pain syndrome (Chronic) Diabetes (Chronic) Gastroesophageal reflux disease (Chronic) Hereditary and idiopathic neuropathy, unspecified (Chronic) Hyperlipidemia (Chronic) Hypertension (Chronic) Hypertensive chronic kidney disease with stage 1 through stage 4 chronic kidney disease, or unspecified chronic kidney disease (Chronic) Hypothyroidism (Chronic) Insomnia (Chronic) 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) Major depressive disorder (Chronic) Obesity (Chronic) Obstructive sleep apnea (Chronic) Urinary incontinence (Chronic) Venous insufficiency (chronic) (peripheral) (Chronic) Wheelchair bound (Chronic) Physical Therapy Inpatient Evaluation/Re-Eval M1 PT/OT-IP Prior Functional Status Start: 11/27/18 13:08 Freq: NEEDED Status: Active Protocol: Document 11/27/18 09:30 AB (Rec: 11/27/18 13:28 AB [email or web address]) Medical Review Prior Functional Status Medical History Reviewed Yes Communication able to make needs known Mobility and Gait pt stated that she has been a usman lift transfers at [facility] for 2.5 years, has been using a manual w/c but unable to propel by herself. stated that they use the usman lift to transfer her to the toilet. Social History Household Members caregiver Living Arrangements 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 Facility Number of Stairs To Enter/Railing? pt lives at [facility] Home Environment Walk in Shower Home Equipment Manual Wheelchair Mechanical Lift Hospital Bed M2 PT-IP Current Condition Start: 11/27/18 13:08 Freq: NEEDED Status: Active Protocol: Document 11/27/18 09:30 AB (Rec: 11/27/18 13:28 AB [email or web address]) Physical Therapy Current Condition Current Condition Evaluation Date 11/27/18 Treatment Diagnosis R foot diabetic ulcer s/p excision of 5th metatarsal head; generalized weak Onset Date 11/26/18 Weight Bearing Status Weight Bearing Status Partial Weight Bearing Allowed Weight Bearing Amount (enter % talked to Dr. Mishra that is or #) (%) rounding today: stated that pt is TTWB on RLE but can be WBAT on just the heel part of the R foot. M3 PT-IP Subjective Start: 11/27/18 13:08 Freq: NEEDED Status: Active Protocol: Document 11/27/18 09:30 AB (Rec: 11/27/18 13:28 AB [email or web address]) Subjective Physical Therapy Visit Type Type Initial Evaluation Visit Start Time 09:30 Visit Stop Time 10:16 Total Visit Minutes 46 Number of ELECTRONIC COMPONENT PROCESSOR Visits 0 Physical Therapy Visit Comments Patient Comments pt agreeable to do PT Therapy Pain Assessment Pain Present Pain Present Denied Pain M4 PT-IP Mobility and Gait Start: 11/27/18 13:08 Freq: NEEDED Status: Active Protocol: Document 11/27/18 09:30 AB (Rec: 11/27/18 13:28 AB [email or web address]) PT-Bed Mobility Assessment Supine to Sit Supine to Sit Maximum Assistance 2 Person Assistance Head of Bed Elevated Bedrails Scooting Scooting to Edge of Bed Dependent PT-Transfer Assessment Comments Mobility Comments pt completed supine to sit max A x 2 and max cues with HOB elevated and pt used bed rail. pt was able to sit on EOB initially with mod to max A but after positioning, was able to maintain sitting SBA with cues for posture and decrease leaning backwards. Pt was able to correct self. Assisted nursing with mechanical lift transfer with pt. educated nursing regarding sling positioning. pt transfered to w/c using mechanical lift. Completed proper w/c positioning. Call light and table placed within reach. PT-Balance Assessment Sitting Balance and Reactions Static Sitting Balance Ability Fair Dynamic Sitting Balance Ability Fair M5 PT-IP Objective Assessments Start: 11/27/18 13:08 Freq: NEEDED Status: Active Protocol: Document 11/27/18 09:30 AB (Rec: 11/27/18 13:28 AB [email or web address]) Orientation Orientation/Cognition Level of Alertness Alert Orientation Name Place Situation Gross Range of Motion Lower Extremity ROM Assessment Bilaterally Impaired Impairments bilateral knee flexor tightness Strength Lower Extremity Strength Assessment Bilaterally Impaired Hip 2-/5 Knee 2-/5 Ankle 2+/5 Muscle Tone Muscle Tone WNL No M6 PT-IP Treatment Start: 11/27/18 13:08 Freq: NEEDED Status: Active Protocol: Document 11/27/18 09:30 AB (Rec: 11/27/18 13:28 AB [email or web address]) Physical Therapy Treatment Education Education Provided Precautions Weight Bearing Status Safety Equipment Issued Equipment Type and Company requested post-op shoe with front cut-out from and received order. upon eval, pt will not need a post-op shoe due to pt not standing and walking at [facility]. M7 PT-IP Assessment and Plan Start: 11/27/18 13:08 Freq: NEEDED Status: Active Protocol: Document 11/27/18 09:30 AB (Rec: 11/27/18 13:28 AB [email or web address]) PT Summary Assessment and Plan Potential Rehabilitation Potential Fair Status of Condition at Evaluation Evolving Summary Impairments Pain ROM Strength Balance Coordination Sensation Tone Cognition Bed Mobility Transfers Gait Activity Tolerance Assessment Summary PT eval completed. pt is at [facility]. pt has been a usman lift dependent transfer at [facility] for 2.5 years. No further PT eval indicated at this time. Frequency of Treatment Frequency Of Treatment Discharge Recommendations To Nursing Amount of Assist Needed Mechanical Lift Discharge Recommendations PT Discharge Recommendations LTAC
[2018-11-27] MEDS: buPROPion SR 100 MG TAB PO ×2 (09:31→21:00)
[2018-11-27] MEDS: dilTIAZem CD 240 MG CAP PO (09:31)
[2018-11-27] MEDS: DULOXETINE 30 MG CAPSULE 60 MG PO (09:31)
[2018-11-27] MEDS: PANTOPRAZOLE 20 MG TABLET PO (09:32)
--- NOTE | 2018-11-27 10:31 | PM.PNPO.1 ---
Subjective Date Patient Seen: 11/27/18 Time Patient Seen: 10:31 Interval history: The patient reports she has relatively minimal pain. Exam Vital Signs (past 8 hours): - 11/27/18 04:01 11/27/18 08:00 11/27/18 09:25 Temperature 97.0 F L 97.8 F Pulse Rate 58 L 70 Respiratory Rate 16 12 Blood Pressure 106/47 L 134/59 L Pulse Oximetry 95 95 99 11/27/18 10:17 11/27/18 10:25 Temperature Pulse Rate Respiratory Rate Blood Pressure Pulse Oximetry 88 L 92 Oxygen Delivery Method Nasal Cannula Oxygen Flow Rate 1 Narrative Exam Narrative: Right foot wound is dressed with no significant drainage on the bandage. Light touch is reduced but unchanged from preoperative in her toes. There is minimal motion of the toes in part due to the dressing. Objective Labs Result Diagrams: 11/27/18 06:20 Labs: Laboratory Results - last 24 hr 11/27/18 06:20 WBC 10.8 RBC 4.20 Hgb 12.4 Hct 38.4 MCV 91.3 MCH 29.6 MCHC 32.4 RDW 14.6 Plt Count 202 Assessment & Plan Post-op Postoperative Procedures Operation Date: 11/26/18 14:45 Actual Procedures Side Surgeon p I&D 5th metatarsal-deep Right Kusum Murcia MD Postoperative day: 1 Postoperative status: doing well Postoperative status narrative: The patient has minimal pain postoperatively. She is somewhat disappointed she will be able to leave the hospital today. Postoperative plan: routine post-op care Postoperative plan narrative: We will continue broad coverage for diabetic osteomyelitis until specific cultures are available. Discharge is dependent upon outcome of the cultures. Time Spent With Patient less than 15 minutes Quality VTE Deep Vein Thrombosis/Pulmonary Embolism Present on Admission: No
--- NOTE | 2018-11-27 11:41 | PC.NURSE ---
Day Shift- Pt A&OX4, able to make needs known using call light, High fall risk precautions in place, bed alarm on. Right foot splint and samm wrap in place, pt able to wiggle toes, CMS+. Dr. Mishra in to see pt around 1015, made aware of pt's POLST form and pt's wishes to be DNR. Pt OOB to wheelchair at 1015 with PT and 2PA using usman lift. Law insitu draining concentrated urine. Allevyn dressing to inner thighs to prevent skin breakdown from skin rubbing. Pt states her normal for bowel movement frequency is every 3-5 days.
[2018-11-27] MEDS: LISINOPRIL 10 MG TABLET PO ×2 (12:05→20:49)
[2018-11-27] MEDS: ASPIRIN EC 81 MG TABLET PO (12:06)
--- NOTE | 2018-11-27 14:02 | CM.DANOTE ---
Patient is a 78 year old female who was admitted on 11/26/18 for Right diabetic ulceration with bone. Pt has [facility] and [employer] for insurance and her PCP is Dr. Narvaez. EMR was reviewed. Per Surgeon, pt had an I&D with IV-Abx and unclear if wound vac needed for d/c. Pt managed by [facility] but has failed outpt setting. Per MD, waiting for culture results to determine medication needs and timeline for discharge. Per PT, pt uses an electric w/c at baseline with usman lift for transfers but can manage the lift and positioning of the chair. Recommending return to SNF at d/c. SW called [facility] admissions who confirms that pt is at [facility] for long rehab needs with plan of return to [facility] when wound care stabilized. [facility] following to accept pt back at d/c. SW met bedside with pt and explained role and pt confirms that she continues to be at [facility] and is agreeable to return at d/ for ongoing wound care needs with plan of eventual return to [facility] for intermediate designer care placement. Pt's DPOA is still her Nicholas Danielson and he was bedside earlier to visit with pt. Pt bariatric and typically utilizes a isiah w/c. Plan: SW to follow for culture results to determine medication needs and plan of return to [facility] before eventually returning to [facility] residence. No PASRR needed at this time for return to [facility]. NEEL Noble Discharge Planning/Care Management Advanced directive, confirm from FAMILY Start: 11/26/18 18:12 Freq: Q24H Status: Active Protocol: Document 11/26/18 18:12 AKP (Rec: 11/26/18 21:46 AKP [id number]) Advance Directive, confirm on record Time 21:45 Person contacted patient's chart Copy received Yes Advanced directive available on record Yes CM Discharge Assessment Start: 11/27/18 13:58 Freq: Status: Active Protocol: Document 11/27/18 13:58 BF (Rec: 11/27/18 14:02 BF [id number]) Discharge Planning Assessment Assigned Melting Operator NEEL Cope DPOA/Assigned Designee Name spouse Nicholas Contact Information [phone] Advance Directives? Yes: POLST Advance Directives on File Yes History Provided By Patient Medical Record Has Patient been admitted in last 30 No days? Prior Living Arrangements 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 Facility Comment Pt has been at [facility] for the past 6 months for rehab due to her wound care Household Members caregiver Type of transporation used prior to Relies on Others admit Facility Name Admitted From: [facility] Willing to Return to Facility? Yes Independent with ADL's No Is patient alert and oriented? Yes Needs Assistance With Bathing Managing Medications Home Chores / Shopping Caregiver for Another No Community Services used prior to Physical Therapy admission: IV Therapy Wound Care Comment uses a bariatric motorized w/c and usman lift. Current wt: 363 lbs Patient/Family Preference Alf Facility Comment Return to [facility] until stable to return to [facility] residence Discharge Plan Alf Facility Community Services Physical Therapy IV Therapy Wound Care Transportation Arrangement Likely SNF transport if pt can tolerate w/c. Referrals Initiated Alf If patient plan is SNF: Has PASSR been No: Not needed if returns to completed? [facility]. Whiteboard Updated in Patient Room with Yes name and ext. # of Melting Operator Review Status In Process Please Provide Date Initial DC 11/27/18 Assessment Was Performed Next Review Type Continued Stay Review Pre-Anesthesia Assessment Start: 11/19/18 15:15 Freq: Status: Complete Protocol: Document 11/19/18 15:15 CAB (Rec: 11/19/18 15:28 CAB [id number]) Pre-Anesthesia Assessment PAC Comment Pt is w/c bound, has not ambulated in over 2 years per surgeon H&P, resides at [facility] Patient Information Reviewed Via Chart Review Primary Care Provider Marleny Narvaez Specialist Seen Emergency Orthopedist Other Comment Wound care clinic Primary Language North [place] Preferred Language [place] [employer] Scout Required No Height 175.26 cm Weight 156.489 kg Body Mass Index (BMI) 50.9 Hx Anesthesia Reactions No Hx Family Anesthesia Reaction No Hx Malignant Hyperthermia No Anesthesia Review Requested Yes: Surgeon requested re: WT/ BMI Medical Assistant Per Diem No alcohol intake never alcohol intake frequency 0-2 drinks per day Smoking Status Former smoker Tobacco type cigars how long ago did patient quit smoking >40 yrs Substance Use Type does not use Musculoskeletal Symptoms Difficulty Walking Patient is completely paralyzed or No completely immobile Prosthesis or Orthotic Device Wheelchair Comment WC bound, has not ambulated in over 2 years Is patient on oxygen? No Hx Sleep Apnea Yes: No longer uses CPAP CPAP/BIPAP use prescribed not used Currently Taking a Beta Linda No Anti-Coagulant Therapy Yes: Xarelto, aspirin Hx Pacemaker/ICD No Pacemaker Rep Required? No Urinary Catheter Present No Hx Urinary Self Catheterization No Diabetes Yes HgbA1C 7.6 Date 11/19/18 Patient No Lactating No Hx Drug Resistant Organism Yes: Chronic Pseudomonas, MSSA Have you traveled outside the [place] in the last 30 days? Marital Status Lives With spouse other Patient Discharge Plan Description Alf Facility/Rehab Comment Currently residing at SNF Do You Have Any Spiritual Beliefs That No May Affect Your HC Choices? Do You Have Any Cultural Practices That No May Affect Your HC Choices? Emergency Contact Name Lulú Danielson Emergency Contact Advance Directives? Yes: POLST Advance Directives on File Yes Power of Manager [employer] Yes Power of Manager [employer] Name same as above Power of Manager [employer] Phone Number same as above
[2018-11-27 19:34] LABS: Alanine Aminotransferase 19 IU/L (9-52); Albumin 4.3 g/dL (3.5-5.0); Albumin Globulin Ratio 1.2 (1.0-2.8); Alkaline Phosphatase 87 U/L (38-126); Aspartate Aminotransferase 17 IU/L (14-36); BUN Creatinine Ratio 16.7 (6-22); Bilirubin Total 0.7 mg/dL (0.2-1.3); Blood Urea Nitrogen 15 mg/dL (7-17); Calcium 9.3 mg/dL (8.4-10.2); Carbon Dioxide 32 mmol/L (22-32); Chloride 97 mmol/L (98-107); Estimated Glomerular Filt Rate > 60.0 mL/min (>60); Globulin 3.7 g/dL (1.7-4.1); Glucose 269 mg/dL (80-110); HEMOLYSIS < 15 (0-50); Potassium 4.1 mmol/L (3.4-5.1); Sodium 139 mmol/L (137-145)
[2018-11-27] MEDS: DAPTOMYCIN IV (20:46)
[2018-11-27] MEDS: SODIUM CHLORIDE 0.9% IV (20:46)
[2018-11-27] MEDS: MIRTAZAPINE 15 MG TABLET PO (20:48)
[2018-11-27] MEDS: NORTRIPTYLINE HCL 25 MG CAPSULE PO (20:48)
[2018-11-28] VITALS (13 sets, daily range): BP systolic 102–119; BP diastolic 46–76; PULSE 69–95; RESP 14–20; TEMP 36.4–36.6; O2SAT 94–98
[2018-11-28] MEDS: PIPERACILLIN-TAZO 3.375 GM/50 ML FROZ.PIGGY IV ×4 (01:13→18:58)
[2018-11-28] MEDS: SODIUM CHLORIDE 0.9% FLUSH 10 ML IV ×6 (01:13→22:23)
[2018-11-28] MEDS: OXYCODONE ER 20 MG TAB PO ×2 (05:51→18:57)
[2018-11-28] MEDS: LEVOTHYROXINE 88 MCG TABLET PO (05:51)
--- NOTE | 2018-11-28 07:42 | PM.PNPO.1 ---
Exam Vital Signs (past 8 hours): - 11/28/18 00:10 11/28/18 00:15 11/28/18 04:51 Temperature 97.6 F 97.6 F Pulse Rate 92 H 95 H Respiratory Rate 20 18 Blood Pressure 119/76 102/46 L Pulse Oximetry 94 94 95 11/28/18 07:21 Temperature Pulse Rate Respiratory Rate Blood Pressure Pulse Oximetry 97 Fraction of Inspired Oxygen 28 Oxygen Delivery Method Nasal Cannula Oxygen Flow Rate 3 Objective Labs Result Diagrams: 11/27/18 06:20 11/27/18 19:15 Labs: Laboratory Results - last 24 hr 11/27/18 19:15 Sodium 139 Potassium 4.1 Chloride 97 L Carbon Dioxide 32 BUN 15 Creatinine 0.90 Estimated GFR > 60.0 BUN/Creatinine Ratio 16.7 Glucose 269 H D Calcium 9.3 Total Bilirubin 0.7 AST 17 ALT 19 Alkaline Phosphatase 87 Total Protein 8.0 Albumin 4.3 Globulin 3.7 Albumin/Globulin Ratio 1.2 Assessment & Plan Post-op Postoperative Procedures Operation Date: 11/26/18 14:45 Actual Procedures Side Surgeon p I&D 5th metatarsal-deep Right Kusum Murcia MD STATUS POST 5TH METATARSAL HEAD AND EXCISION AND WOUND CLOSURE RIGHT FOOT OSTEOMYELITIS DIABETIC FOOT ULCER --DRESSING CHANGES NEEDED. --PATIENT HAS CATHETER AT BASELINE. SCDS. On ELIQUIS POSTOP DAY FOR afib and DVT PROPHYLAXIS PICC LINE FOR IV ANTIBIOTICS. STARTING WITH DAPTOMYCIN AND ZOSYN. TAILOR APPROPRIATE. cultures generally take 3 days, should be final by 11/29. currently gram neg bacilli. right now anticipate continue dapto and zosyn and current dosages x 6 weeks. if pt very restless to leave hospital could consider dc to snf with current abx orders if can be arranged, but encourage to wait for sensitivities is able. will need weekly cbc with diff, cmp, crp, esr ONCE ANTIBIOTICS FINALIZE DISCHARGE BACK TO [facility] IF ORGANISMS SAME PREVIOUS THEN A DC ON DAPTOMYCIN AND ZOSYN PLAN 6 WEEKS IV ANTIBIOTICS Quality VTE Deep Vein Thrombosis/Pulmonary Embolism Present on Admission: No
[2018-11-28] MEDS: INSULIN ASPART 100 UNIT/ML INSULN PEN SUBCUT ×4 (08:27→22:16)
[2018-11-28] MEDS: INSULIN GLARGINE 100 UNIT/ML 10ML VIAL 57 UNIT SUBCUT ×2 (08:27→22:17)
[2018-11-28] MEDS: APIXABAN 5 MG TABLET PO ×2 (08:28→22:22)
[2018-11-28] MEDS: dilTIAZem CD 240 MG CAP PO (08:29)
[2018-11-28] MEDS: ASPIRIN EC 81 MG TABLET PO (08:29)
[2018-11-28] MEDS: FUROSEMIDE 20 MG TABLET PO (08:29)
[2018-11-28] MEDS: DULOXETINE 30 MG CAPSULE 60 MG PO (08:29)
[2018-11-28] MEDS: buPROPion SR 100 MG TAB PO ×2 (08:29→22:19)
[2018-11-28] MEDS: GABAPENTIN 300 MG CAPSULE 900 MG PO ×3 (08:29→22:19)
[2018-11-28] MEDS: DOCUSATE 100 MG CAPSULE 200 MG PO ×2 (08:29→22:19)
[2018-11-28] MEDS: ARIPiprazole 10 MG TABLET 2.5 MG PO (08:29)
[2018-11-28] MEDS: MULTIVITAMIN 1 TABLET 1 TAB PO (08:30)
[2018-11-28] MEDS: LISINOPRIL 10 MG TABLET PO ×2 (08:30→22:20)
[2018-11-28] MEDS: PANTOPRAZOLE 20 MG TABLET PO (08:30)
[2018-11-28] MEDS: SENNOSIDES 8.6 MG TABLET 17.2 MG PO ×2 (08:31→22:21)
[2018-11-28] MEDS: POTASSIUM CHLORIDE 10 MEQ TAB PO (08:31)
--- NOTE | 2018-11-28 11:26 | PC.NURSE ---
Addendum entered by Elisa Wolfe R.N. 11/28/18 13:04: Spoke with Dr. Murcia at 1300. Okay to keep urinary catheter in place as was present on admission. Also to hold Atvorstatin for now while pt on IV Daptomycin due to adverse reaction noted from Pharmacy. Addendum entered by Elisa Wolfe R.N. 11/28/18 12:56: Spoke with Gaby at [facility] at [phone] who confirmed pt has chronic urinary catheter in place and was likely present upon admission. Gaby stated [facility] had kept urinary catheter in due to retention. Pt also states the urinary catheter remains insitu. Original Note: Day Shift- Pt lethargic, arousable, does have a hard time keeping eyes open when providing care. Denies pain to right foot surgical area. Chronic pain to back is 4-5/10 and her baseline is 4-5/10. O2 sat 94% on 2L NC, AE diminished throughout lung sims and more so to bases bilaterally. Right foot splint, gauze and samm wrap CDI. Chronic wounds to RLE covered with Mepilex dressing to inner calf below knee is intact with small amount of sero-sang drainage. Upper inner thigh small dressings of Mepilex removed as both were saturated with moisture and some martinez/brown liquid which appears to be yeast-like. Skin tough, red and blanchable, inner thigh and groin area cleansed, pat dry, 2 allevyn 4X4 dressings placed to inner thighs to prevent rubbing. Pt had a large amount of martinez/brown yeast-like drainage to amaris area around catheter and to bilateral groin. Areas cleansed, catheter care provided. Areas pat dry and pillow cases laces to bilateral groin and under pannus for moisture protection. Pt OOB to her wheelchair via Amrita lift with 2PA at 1100. Pt tolerated well.
[2018-11-28] MEDS: SODIUM CHLORIDE 0.9% 250 ML 42 ML IV (12:39)
[2018-11-28] MEDS: NYSTATIN POWDER 30 GM 1 APPLIC TOP (14:19)
[2018-11-28] MEDS: SODIUM CHLORIDE 0.9% 250 ML 100 ML IV (19:00)
[2018-11-28] MEDS: DAPTOMYCIN IV (19:37)
[2018-11-28] MEDS: SODIUM CHLORIDE 0.9% IV (19:37)
[2018-11-28] MEDS: NORTRIPTYLINE HCL 25 MG CAPSULE PO (22:21)
[2018-11-28] MEDS: MIRTAZAPINE 15 MG TABLET PO (22:21)
--- NOTE | 2018-11-28 23:34 | PC.NURSE ---
Report received, care assumed at 1530. Pt experienced generalized and positional discomfort, but no pain, per se. Frequently made adjustments to her position with nursing help. Twice went to BSC via total lift but was unable to have a bowel movement. Is passing flatus. Also had a BM 7/2, and every 3-5 days is her normal pattern. Gross generalized edema. Left leg compression wrap is slack. RLE edema greater than left. Elevated both legs on pillows to the best of our abilities. PICC dressing changed with sterile technique at 1800.
[2018-11-29 00:05] VITALS: BP 118/65; PULSE 80; RESP 20; TEMP 36.8; O2SAT 95
[2018-11-29] MEDS: PIPERACILLIN-TAZO 3.375 GM/50 ML FROZ.PIGGY IV ×2 (01:08→06:51)
[2018-11-29] MEDS: SODIUM CHLORIDE 0.9% FLUSH 10 ML IV ×3 (01:08→10:03)
[2018-11-29 04:48] VITALS: BP 119/57; PULSE 70; RESP 18; TEMP 36.2; O2SAT 95
[2018-11-29] MEDS: OXYCODONE ER 20 MG TAB PO (05:50)
[2018-11-29] MEDS: LEVOTHYROXINE 88 MCG TABLET PO (05:50)
[2018-11-29 07:59] VITALS: BP 123/63; PULSE 73; RESP 17; TEMP 36.8; O2SAT 93
[2018-11-29] MEDS: INSULIN GLARGINE 100 UNIT/ML 10ML VIAL 57 UNIT SUBCUT (09:55)
[2018-11-29] MEDS: INSULIN ASPART 100 UNIT/ML INSULN PEN SUBCUT ×2 (09:55→12:31)
[2018-11-29] MEDS: buPROPion SR 100 MG TAB PO (10:00)
[2018-11-29] MEDS: SENNOSIDES 8.6 MG TABLET 17.2 MG PO (10:00)
[2018-11-29] MEDS: POTASSIUM CHLORIDE 10 MEQ TAB PO (10:00)
[2018-11-29] MEDS: OXYCODONE IR 10 MG TABLET PO (10:00)
[2018-11-29] MEDS: MULTIVITAMIN 1 TABLET 1 TAB PO (10:02)
[2018-11-29] MEDS: LISINOPRIL 10 MG TABLET PO (10:02)
[2018-11-29] MEDS: GABAPENTIN 300 MG CAPSULE 900 MG PO (10:02)
[2018-11-29] MEDS: DOCUSATE 100 MG CAPSULE 200 MG PO (10:02)
[2018-11-29] MEDS: DULOXETINE 30 MG CAPSULE 60 MG PO (10:02)
[2018-11-29] MEDS: dilTIAZem CD 240 MG CAP PO (10:02)
[2018-11-29] MEDS: PANTOPRAZOLE 20 MG TABLET PO (10:02)
[2018-11-29] MEDS: APIXABAN 5 MG TABLET PO (10:02)
[2018-11-29] MEDS: ASPIRIN EC 81 MG TABLET PO (10:02)
[2018-11-29] MEDS: ARIPiprazole 10 MG TABLET 2.5 MG PO (10:03)
[2018-11-29] MEDS: CEFTRIAXONE 2 GM/50 ML FROZ.PIGGY IV (10:03)
[2018-11-29] MEDS: FUROSEMIDE 20 MG TABLET PO (10:03)
[2018-11-29 10:15] VITALS: O2SAT 93; O2SAT 94; O2SAT 95
--- NOTE | 2018-11-29 10:34 | PM.DS.1 ---
History of Present Illness Date Patient Seen: 11/29/18 Time Patient Seen: 10:34 Chief complaint: [id number] Narrative: Patient denies fever chills. Denies sensation bilateral lower extremities. Discharge Providers Date of admission: 11/26/18 17:11 Discharge Date: 11/29/18 Primary care physician: Marleny Narvaez MD Consults: 11/26/18 18:14 Consult to Discharge Planning Routine Comment: IV abx and back to [facility] Consult to Physical Therapy Evaluate & Treat Comment: Physician Instructions: Evaluate and Treat Consult to Respiratory Therapy Evaluate & Treat Comment: Physician Instructions: Evaluate and treat Discharge provider: Prashant Davis PA-C Summary Discharge Diagnosis: 1. EXCISION METATARSAL BONE HEAD, 5TH METATARSAL RIGHT CPT CODE 31758 2. DEBRIDEMENT OF BONE MUSCLE AND FASCIA 20 SQ CM, RIGHT CPT CODE 39129 3. 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 THIS HAS BEEN NONHEALING DESPITE MULTIPLE ROUNDS OF ORAL ANTIBIOTICS IN OVER 40 TREATMENTS AND HYPERBARIC OXYGEN AND WOUND CARE. PATIENT HAS BEEN INDICATED FOR FORMAL OPERATIVE DEEP BONE BIOPSY, IRRIGATION DEBRIDEMENT AND 5TH METATARSAL HEAD EXCISION. SHE HAD NONINVASIVE VASCULAR TESTING THAT SHOWED GOOD FLOW AND SHE HAS PALPABLE PULSES. MOST RECENT HEMOGLOBIN A1C WAS 7.6. SHE HAS OBTAINED MEDICAL CLEARANCE. SHE IS HOLDING HER ELIQUIS WHICH SHE TAKES FOR AFIB. THE RISKS BENEFITS AND ALTERNATIVES TO THE PROCEDURE WERE DISCUSSED WITH THE PATIENT IN DETAIL THESE INCLUDE BUT ARE NOT LIMITED TO INFECTION, DELAYED WOUND HEALING OR NONHEALING WOUNDS, PERSISTENT PAIN, DVT, PE, STROKE PARALYSIS OR , AMPUTATION. THE PATIENT HAS ELECTED TO PROCEED WITH SURGERY. CONSENT WAS SIGNED IN THE OFFICE. PLAN WILL BE ADMISSION TO THE HOSPITAL AFTER THE SURGERY AND IV ANTIBIOTICS. SHE WILL GET A PICC LINE. THERE WILL BE A CONSULT WITH INFECTIOUS DISEASE AT [facility] AND THE PATIENT WILL BE DISCHARGED BACK TO HER PENITENTIARY FACILITY WITH APPROPRIATE ANTIBIOTICS. Surgeon: Kusum Murcia Final culture Proteus sensitive to ceftriaxone. Dapto and Zosyn were started and now discontinued. Patient will be on ceftriaxone 2 g every 24 hours for another 39 days. Weekly CBC with diff, CMP, sed rate, C reactive protein. Follow up in [facility] in 2 wks. Patient discharged to retirement facility today in stable condition. Status at Discharge Cognitive/behavioral status at discharge: at baseline, oriented Functional status at discharge: wheelchair bound Overall status at discharge: patient is progressing back to baseline Time Spent with Patient Less than 30 minutes Exam Vital Signs (past 8 hours): - 11/29/18 04:48 11/29/18 07:59 Temperature 97.2 F L 98.3 F Pulse Rate 70 73 Respiratory Rate 18 17 Blood Pressure 119/57 L 123/63 Pulse Oximetry 95 93 Fraction of Inspired Oxygen 28 Oxygen Delivery Method Nasal Cannula Oxygen Flow Rate 1.5 Narrative Exam Narrative: Resting comfortably in bed in no apparent distress. Right foot dressing in place with no significant drainage noted. Sensation diminished but unchanged from baseline to lower extremities. Objective Labs Result Diagrams: 11/27/18 06:20 11/27/18 19:15 Labs: Comment right fifth metatarsal head Procedure Result Verified Site Gram Stain Final 11/26/18 No Organism Seen No organisms seen White blood cells Few mixed mono and poly WBCs Epithelial cells Occasional (0-1) Aerobic Culture for wounds Final 11/29/18-639 Organism 1 Proteus mirabilis Growth SCANT 1. Proteus mirabilis M.I.C. RX --------- --- * Amikacin S * Ampicillin R * Ampicillin/Sulbactam R * Aztreonam S * Cefazolin S * Cefepime S Cefalotin I * Cefotetan S * Ceftizoxime S * Ceftriaxone S * Cefuroxime S * Ciprofloxacin R * Ertapenem S * Gentamicin I * Imipenem S * Levofloxacin R * Meropenem S * Moxifloxacin R * Nalidixic Acid R * Norfloxacin R * Piperacillin R * Ticarcillin R * Tigecycline R * Tobramycin I * Trimethoprim/Sulfamethoxazole R * Piperacillin/Tazobactam S Anaerobic Culture Preliminary 11/29/18 No growth. Discharge Plan Discharge Plan Patient Disposition: SNF Transfer to: [facility] Under care of provider: Dr. Murcia Transportation: Facility vehicle Labs: Weekly cbc with diff, cmp, crp, esr Consult as needed: Dental, Hearing, Mental health, Podiatry and Vision I certify the postop hospital retirement care is medically necessary on a continuing basis for any conditions for which he/ she received care during this hospitalization.: Yes The receiving facility has agreed to accept transfer and provide medical treatment.: Yes Discharge Med Rec/Prescriptions Prescriptions: New oxycodone 10 mg Tablet 10 mg PO Q6H PRN (Reason: breakthrough pain level 5-10) Qty: 40 RF: 0 oxycodone [OxyContin] 20 mg Tablet,Oral Only,Ext.Rel.12 Hr 20 mg PO Q12H Qty: 40 RF: 0 ceftriaxone 2 gram recon soln 2 gram IV Q24H 39 Days Qty: 39 RF: 0 Continued bisacodyl 10 MG suppository 10 mg SC PRN PRN (Reason: Constipation) Qty: 0 RF: 0 nitroglycerin [Nitrostat] 0.4 MG tablet, sublingual 0.4 mg Sublingual PRN PRN (Reason: Chest Pain) Qty: 0 RF: 0 hydroxyzine pamoate [Vistaril] 25 MG capsule 25 mg PO Q6HP PRN (Reason: Spasms) Qty: 0 RF: 0 diphenhydramine HCl [Benadryl Allergy] 25 MG tablet 25 mg PO Q8HP PRN (Reason: Itching) Qty: 0 RF: 0 ondansetron HCl 4 MG tablet 4 mg PO Q4HP PRN (Reason: Nausea) Qty: 0 RF: 0 magnesium hydroxide [Milk of Magnesia] 400 mg/5 mL Suspension 30 ml PO PRN PRN (Reason: Constipation) RF: 0 Fleet Enema 19-7 gram/118 mL Enema 1 ea SC PRN PRN (Reason: Constipation) RF: 0 atorvastatin 40 mg Tablet 40 mg PO BEDTIME RF: 0 potassium chloride 10 mEq Capsule, Extended Release 10 meq PO DAILY RF: 0 acetaminophen 325 mg Tablet 650 mg PO Q4H MDD 3 g PRN (Reason: pain) RF: 0 diltiazem HCl 240 mg Capsule,Extended Release 24 Hr 240 mg PO DAILY RF: 0 aspirin [Aspir-Low] 81 mg Tablet,Delayed Release (Dr/Ec) 81 mg PO DAILY RF: 0 bupropion HCl 100 mg Tablet Sustained-Release 12 Hr 100 mg PO BID RF: 0 pantoprazole 20 mg Tablet,Delayed Release (Dr/Ec) 20 mg PO DAILY RF: 0 nortriptyline 25 mg Capsule 25 mg PO BEDTIME RF: 0 lisinopril 10 mg Tablet 10 mg PO BID RF: 0 mirtazapine 15 mg Tablet 15 mg PO BEDTIME RF: 0 docusate sodium 100 mg Tablet 200 mg PO BID RF: 0 aripiprazole 5 mg Tablet 2.5 mg PO DAILY RF: 0 duloxetine 60 mg Capsule,Delayed Release(Dr/Ec) 60 mg PO DAILY RF: 0 Myrbetriq 25 mg Tablet Extended Release 24 Hr 25 mg PO DAILY RF: 0 bisacodyl 5 mg Tablet 5 - 10 mg PO PRN PRN (Reason: Constipation) RF: 0 nystatin 100,000 unit/gram Powder 1 applic TOPICAL PRN PRN (Reason: Rash) RF: 0 acetaminophen 500 mg Tablet 1,000 mg PO BID MDD 3 g RF: 0 levothyroxine 88 mcg tablet 88 mcg PO DAILY RF: 0 oxycodone 10 mg Tablet 10 mg PO Q6H PRN (Reason: breakthrough pain level 5-10) Qty: 20 RF: 0 oxycodone [OxyContin] 20 mg Tablet,Oral Only,Ext.Rel.12 Hr 20 mg PO Q12H Qty: 30 RF: 0 furosemide 20 mg Tablet 20 mg PO DAILY RF: 0 polyethylene glycol 3350 17 gram/dose Powder 17 g PO DAILY RF: 0 multivitamin with minerals Capsule 1 cap PO DAILY RF: 0 furosemide 40 mg Tablet 40 mg PO DAILY PRN (Reason: Edema) RF: 0 sennosides [senna] 8.6 mg Tablet 17.2 mg PO BID RF: 0 Lantus U-100 Insulin 100 unit/mL Solution 57 units subcut BID RF: 0 melatonin 3 mg Tablet 3 mg PO BEDTIME PRN (Reason: Insomnia) RF: 0 gabapentin 300 mg Capsule 900 mg PO TID RF: 0 insulin lispro [Humalog U-100 Insulin] 100 unit/mL Solution See Rx Instructions .ROUTE .COMPLEX RF: 0 Discontinued ciprofloxacin HCl [Cipro] 500 mg Tablet 500 mg PO BID RF: 0 Follow up/Referrals: Kusum Murcia MD [Physician] - (Two weeks) Marleny Narvaez MD [Primary Care Provider] - Discharge Health Status Brief summary of current health status: Stable. Morbidly obese insulin-dependent diabetic. Status post excision metatarsal bone head, 5th metatarsal right, debridement of bone muscle and fascia, right, and adjacent tissue transfer November 26, 2018 Final culture Proteus sensitive to ceftriaxone. Weekly CBC with diff, CMP, sed rate, C reactive protein. Multidrug resistant organism: No MDRO Provider Discharge Instructions Diet: Carb-consistent/Diabetic Liquid consistency: Normal/Thin Food texture: Regular Skin/Wound/Dressing Care Report to your healthcare provider any signs of infection, such as:: chills, fever, increased pain, unusual drainage and unusual redness Dressing: Dressing may be changed as needed Special Rehabilitation Services Reason for rehabilitation: Post-operative therapy Rehab type: Physical therapy and Occupational therapy Visit Report/Discharge Packet Stand Alone Forms: Surgery Discharge Discharge Data Primary Care Provider: Marleny Narvaez Attending Provider: Kusum Murcia Admit Date/Time: 11/26/18 17:11 Quality VTE Deep Vein Thrombosis/Pulmonary Embolism Present on Admission: No
--- NOTE | 2018-11-29 10:43 | P.DS_ITS ---
History of Present Illness Date Patient Seen: 11/29/18 Time Patient Seen: 10:34 Chief complaint: [id number] Narrative: Patient denies fever chills. Denies sensation bilateral lower extremities. Discharge Providers Date of admission: 11/26/18 17:11 Discharge Date: 11/29/18 Primary care physician: Marleny Narvaez MD Consults: 11/26/18 18:14 Consult to Discharge Planning Routine Comment: IV abx and back to [facility] Consult to Physical Therapy Evaluate & Treat Comment: Physician Instructions: Evaluate and Treat Consult to Respiratory Therapy Evaluate & Treat Comment: Physician Instructions: Evaluate and treat Discharge provider: Prashant Davis PA-C Summary Discharge Diagnosis: 1. EXCISION METATARSAL BONE HEAD, 5TH METATARSAL RIGHT CPT CODE 80793 2. DEBRIDEMENT OF BONE MUSCLE AND FASCIA 20 SQ CM, RIGHT CPT CODE 47179 3. 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 THIS HAS BEEN NONHEALING DESPITE MULTIPLE ROUNDS OF ORAL ANTIBIOTICS IN OVER 40 TREATMENTS AND HYPERBARIC OXYGEN AND WOUND CARE. PATIENT HAS BEEN INDICATED FOR FORMAL OPERATIVE DEEP BONE BIOPSY, IRRIGATION DEBRIDEMENT AND 5TH METATARSAL HEAD EXCISION. SHE HAD NONINVASIVE VASCULAR TESTING THAT SHOWED GOOD FLOW AND SHE HAS PALPABLE PULSES. MOST RECENT HEMOGLOBIN A1C WAS 7.6. SHE HAS OBTAINED MEDICAL CLEARANCE. SHE IS HOLDING HER ELIQUIS WHICH SHE TAKES FOR AFIB. THE RISKS BENEFITS AND ALTERNATIVES TO THE PROCEDURE WERE DISCUSSED WITH THE PATIENT IN DETAIL THESE INCLUDE BUT ARE NOT LIMITED TO INFECTION, DELAYED WOUND HEALING OR NONHEALING WOUNDS, PERSISTENT PAIN, DVT, PE, STROKE PARALYSIS OR , AMPUTATION. THE PATIENT HAS ELECTED TO PROCEED WITH SURGERY. CONSENT WAS SIGNED IN THE OFFICE. PLAN WILL BE ADMISSION TO THE HOSPITAL AFTER THE SURGERY AND IV ANTIBIOTICS. SHE WILL GET A PICC LINE. THERE WILL BE A CONSULT WITH INFECTIOUS DISEASE AT [facility] [place] AND THE PATIENT WILL BE DISCHARGED BACK TO HER LONG TERM FACILITY WITH APPROPRIATE ANTIBIOTICS. Surgeon: Kusum Murcia Final culture Proteus sensitive to ceftriaxone. Dapto and Zosyn were started and now discontinued. Patient will be on ceftriaxone 2 g every 24 hours for another 39 days. Weekly CBC with diff, CMP, sed rate, C reactive protein. Follow up in [facility] in 2 wks. Patient discharged to intermediate facility today in stable condition. Status at Discharge Cognitive/behavioral status at discharge: at baseline, oriented Functional status at discharge: wheelchair bound Overall status at discharge: patient is progressing back to baseline Time Spent with Patient Less than 30 minutes Exam Vital Signs (past 8 hours): - 11/29/18 04:48 11/29/18 07:59 Temperature 97.2 F L 98.3 F Pulse Rate 70 73 Respiratory Rate 18 17 Blood Pressure 119/57 L 123/63 Pulse Oximetry 95 93 Fraction of Inspired Oxygen 28 Oxygen Delivery Method Nasal Cannula Oxygen Flow Rate 1.5 Narrative Exam Narrative: Resting comfortably in bed in no apparent distress. Right foot dressing in place with no significant drainage noted. Sensation diminished but unchanged from baseline to lower extremities. Objective Labs Result Diagrams: 11/27/18 06:20 11/27/18 19:15 Labs: Comment right fifth metatarsal head Procedure Result Verified Site Gram Stain Final 11/26/182151 No Organism Seen No organisms seen White blood cells Few mixed mono and poly WBCs Epithelial cells Occasional (0-1) Aerobic Culture for wounds Final 11/29/18- 639 Organism 1 Proteus mirabilis Growth SCANT 1. Proteus mirabilis M.I.C. RX --------- --- * Amikacin S * Ampicillin R * Ampicillin/Sulbactam R * Aztreonam S * Cefazolin S * Cefepime S Cefalotin I * Cefotetan S * Ceftizoxime S * Ceftriaxone S * Cefuroxime S * Ciprofloxacin R * Ertapenem S * Gentamicin I * Imipenem S * Levofloxacin R * Meropenem S * Moxifloxacin R * Nalidixic Acid R * Norfloxacin R * Piperacillin R * Ticarcillin R * Tigecycline R * Tobramycin I * Trimethoprim/Sulfamethoxazole R * Piperacillin/Tazobactam S Anaerobic Culture Preliminary 11/29/18740 No growth. Discharge Plan Discharge Plan Patient Disposition: SNF Transfer to: [facility] Under care of provider: Dr. Murcia Transportation: Facility vehicle Labs: Weekly cbc with diff, cmp, crp, esr Consult as needed: Dental, Hearing, Mental health, Podiatry and Vision I certify the postop hospital intermediate care is medically necessary on a continuing basis for any conditions for which he/ she received care during this hospitalization.: Yes The receiving facility has agreed to accept transfer and provide medical treatment.: Yes Discharge Med Rec/Prescriptions Prescriptions: New oxycodone 10 mg Tablet 10 mg PO Q6H PRN (Reason: breakthrough pain level 5-10) Qty: 40 RF: 0 oxycodone [OxyContin] 20 mg Tablet,Oral Only,Ext.Rel.12 Hr 20 mg PO Q12H Qty: 40 RF: 0 ceftriaxone 2 gram recon soln 2 gram IV Q24H 39 Days Qty: 39 RF: 0 Continued bisacodyl 10 MG suppository 10 mg IL PRN PRN (Reason: Constipation) Qty: 0 RF: 0 nitroglycerin [Nitrostat] 0.4 MG tablet, sublingual 0.4 mg Sublingual PRN PRN (Reason: Chest Pain) Qty: 0 RF: 0 hydroxyzine pamoate [Vistaril] 25 MG capsule 25 mg PO Q6HP PRN (Reason: Spasms) Qty: 0 RF: 0 diphenhydramine HCl [Benadryl Allergy] 25 MG tablet 25 mg PO Q8HP PRN (Reason: Itching) Qty: 0 RF: 0 ondansetron HCl 4 MG tablet 4 mg PO Q4HP PRN (Reason: Nausea) Qty: 0 RF: 0 magnesium hydroxide [Milk of Magnesia] 400 mg/5 mL Suspension 30 ml PO PRN PRN (Reason: Constipation) RF: 0 Fleet Enema 19-7 gram/118 mL Enema 1 ea IL PRN PRN (Reason: Constipation) RF: 0 atorvastatin 40 mg Tablet 40 mg PO BEDTIME RF: 0 potassium chloride 10 mEq Capsule, Extended Release 10 meq PO DAILY RF: 0 acetaminophen 325 mg Tablet 650 mg PO Q4H MDD 3 g PRN (Reason: pain) RF: 0 diltiazem HCl 240 mg Capsule,Extended Release 24 Hr 240 mg PO DAILY RF: 0 aspirin [Aspir-Low] 81 mg Tablet,Delayed Release (Dr/Ec) 81 mg PO DAILY RF: 0 bupropion HCl 100 mg Tablet Sustained-Release 12 Hr 100 mg PO BID RF: 0 pantoprazole 20 mg Tablet,Delayed Release (Dr/Ec) 20 mg PO DAILY RF: 0 nortriptyline 25 mg Capsule 25 mg PO BEDTIME RF: 0 lisinopril 10 mg Tablet 10 mg PO BID RF: 0 mirtazapine 15 mg Tablet 15 mg PO BEDTIME RF: 0 docusate sodium 100 mg Tablet 200 mg PO BID RF: 0 aripiprazole 5 mg Tablet 2.5 mg PO DAILY RF: 0 duloxetine 60 mg Capsule,Delayed Release(Dr/Ec) 60 mg PO DAILY RF: 0 Myrbetriq 25 mg Tablet Extended Release 24 Hr 25 mg PO DAILY RF: 0 bisacodyl 5 mg Tablet 5 - 10 mg PO PRN PRN (Reason: Constipation) RF: 0 nystatin 100,000 unit/gram Powder 1 applic TOPICAL PRN PRN (Reason: Rash) RF: 0 acetaminophen 500 mg Tablet 1,000 mg PO BID MDD 3 g RF: 0 levothyroxine 88 mcg tablet 88 mcg PO DAILY RF: 0 oxycodone 10 mg Tablet 10 mg PO Q6H PRN (Reason: breakthrough pain level 5-10) Qty: 20 RF: 0 oxycodone [OxyContin] 20 mg Tablet,Oral Only,Ext.Rel.12 Hr 20 mg PO Q12H Qty: 30 RF: 0 furosemide 20 mg Tablet 20 mg PO DAILY RF: 0 polyethylene glycol 3350 17 gram/dose Powder 17 g PO DAILY RF: 0 multivitamin with minerals Capsule 1 cap PO DAILY RF: 0 furosemide 40 mg Tablet 40 mg PO DAILY PRN (Reason: Edema) RF: 0 sennosides [senna] 8.6 mg Tablet 17.2 mg PO BID RF: 0 Lantus U-100 Insulin 100 unit/mL Solution 57 units subcut BID RF: 0 melatonin 3 mg Tablet 3 mg PO BEDTIME PRN (Reason: Insomnia) RF: 0 gabapentin 300 mg Capsule 900 mg PO TID RF: 0 insulin lispro [Humalog U-100 Insulin] 100 unit/mL Solution See Rx Instructions .ROUTE .COMPLEX RF: 0 Discontinued ciprofloxacin HCl [Cipro] 500 mg Tablet 500 mg PO BID RF: 0 Follow up/Referrals: Kusum Murcia MD [Physician] - (Two weeks) Marleny Narvaez MD [Primary Care Provider] - Discharge Health Status Brief summary of current health status: Stable. Morbidly obese insulin- dependent diabetic. Status post excision metatarsal bone head, 5th metatarsal right, debridement of bone muscle and fascia, right, and adjacent tissue transfer November 26, 2018 Final culture Proteus sensitive to ceftriaxone. Weekly CBC with diff, CMP, sed rate, C reactive protein. Multidrug resistant organism: No MDRO Provider Discharge Instructions Diet: Carb-consistent/Diabetic Liquid consistency: Normal/Thin Food texture: Regular Skin/Wound/Dressing Care Report to your healthcare provider any signs of infection, such as:: chills, fever, increased pain, unusual drainage and unusual redness Dressing: Dressing may be changed as needed Special Rehabilitation Services Reason for rehabilitation: Post-operative therapy Rehab type: Physical therapy and Occupational therapy Visit Report/Discharge Packet Stand Alone Forms: Surgery Discharge Discharge Data Primary Care Provider: Marleny Narvaez Attending Provider: Kusum Murcia Admit Date/Time: 11/26/18 17:11 Quality VTE Deep Vein Thrombosis/Pulmonary Embolism Present on Admission: No
--- NOTE | 2018-11-29 11:44 | CM.DPC ---
DCP Discharge SNF Per Ortho PA, pt medically stable to d/c back to SNF today as cultures results returned and pt switched to once daily IV-Abx. Per RN, pt received her dose of IV-Abx this morning and not due until tomorrow morning and pt safe for d/c via w/c with sling into chair. RIKY called [facility] admissions Destini and updated on pt stable for d/c and faxed signed med rec, scripts, d/c summary and no PASRR needed as pt is a return to their facility. SW updated on no need for IV-Abx today since she had her dose and w/c van appropriate. Waiting for call back regarding time of transport. RIKY met bedside with pt and explained role again and provided pt with her Medicare Rights and pt acknowledged understanding and signed her IMM stating she is agreeable to d/c to [facility] today and that they take good care of me. SW inquired if her is aware of her d/c today and she stated no and requested SW call to update him. RIKY called pt's spouse and left a general msg regarding pt d/c back today and left number in case he has questions or concerns. RIKY updated RN and PIPE FITTER. Plan: Patient to d/c back to [facility] today via w/c van for ongoing wound care/IV-Abx and rehab. RIKY waiting for [facility] return call for transport time. NEEL Noble
[2018-11-29 12:09] VITALS: BP 113/72; PULSE 71; RESP 16; TEMP 36.2; O2SAT 97
--- NOTE | 2018-11-29 13:49 | PC.NURSE ---
Addendum entered by Avelina Carmona R.N. 11/29/18 14:38: Called again to [facility], report given to Destini. Original Note: Discharge Pt left with PICC in place as she will receive IV Abx at [facility]. attempted to call report to [facility], awaiting call back. 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 pt took all belongings with her.
== END 2018-11-29 13:45 | DRG 629 ==
LOC: AC 17:33 → OR 11-28 06:47
PROVIDERS: Admitting Provider Orthopaedic Surgery Foot and Ankle Surgery; PCP Internal Medicine; Visit Provider Orthopaedic Surgery Foot and Ankle Surgery
PROC: 0QBN0ZZ Excision of Right Metatarsal, Open Approach (ICD-10-PCS; principal; 2018-11-26 14:45)
DX: E11.69 Type 2 diabetes mellitus with other specified complication (principal); M86.671 Other chronic osteomyelitis, right ankle and foot; L97.516 Non-pressure chronic ulcer of other part of right foot with bone involvement without evidence of necrosis; Z68.43 Body mass index [BMI] 50.0-59.9, adult; E11.621 Type 2 diabetes mellitus with foot ulcer; E66.01 Morbid (severe) obesity due to excess calories; I48.91 Unspecified atrial fibrillation; Z79.01 Long term (current) use of anticoagulants; I10 Essential (primary) hypertension; F32.9 Major depressive disorder, single episode, unspecified; Z87.891 Personal history of nicotine dependence; B95.61 Methicillin susceptible Staphylococcus aureus infection as the cause of diseases classified elsewhere; B96.5 Pseudomonas (aeruginosa) (mallei) (pseudomallei) as the cause of diseases classified elsewhere
CPT/HCPCS: 36415; 36573; 80053; 82962; 85027; 87070; 87075; 87077; 87186; 87205; 88305; 88311; 94760; 97162; J0690; J0696; J0878; J2250; J2543

== ENCOUNTER → 2018-12-04 13:44 | Outpatient (CLI) | payer MEDICARE, OTHER, MEDICAID, SELFPAY ==
[2018-11-26 18:05] VITALS: BMI 50.9
== END ==
PROVIDERS: PCP Internal Medicine; Visit Provider Family Medicine
DX: I87.313 Chronic venous hypertension (idiopathic) with ulcer of bilateral lower extremity (principal); L97.222 Non-pressure chronic ulcer of left calf with fat layer exposed; M86.671 Other chronic osteomyelitis, right ankle and foot; L97.221 Non-pressure chronic ulcer of left calf limited to breakdown of skin
CPT/HCPCS: 99213

== ENCOUNTER → 2018-12-08 13:44 | Outpatient (CLI) | payer MEDICARE, OTHER, MEDICAID, SELFPAY ==
[2018-11-26 18:05] VITALS: BMI 50.9
--- NOTE | 2018-12-08 | DI.CT.S_ITS ---
PROCEDURE: CT KIDNEY URETER BLADDER (KUB) INDICATIONS: Hematuria, unspecified TECHNIQUE: Noncontrast 5 mm thick sections acquired from the diaphragms to the symphysis. 5 mm thick coronal and sagittal reformats were then performed. For radiation dose reduction, the following was used: automated exposure control, adjustment of mA and/or kV according to patient size. COMPARISON: [facility], CT, PE STUDY (CTA CHEST), 04/12/2016, 11:53. FINDINGS: Image quality: Excellent. Lung bases: No acute consolidation. Scattered subsegmental atelectasis and/or scarring. Unchanged subcentimeter multiple pulmonary nodules in the lung bases presumably from prior granulomatous disease. Heart size is normal. Urinary system: Both kidneys are normal in size. No kidney stones. No hydronephrosis or perinephric fat stranding. Both ureters appear non-dilated throughout their expected courses. Bladder decompressed and a Law catheter is noted. Simple appearing left renal cyst. Other solid organs: Liver is normal in size. Gallbladder contains layering gravel-like gallstones versus debris. Pancreas is normal in contours. Spleen is normal in size. No adrenal nodules. Peritoneum and bowel: Unenhanced bowel loops demonstrate normal wall thickness and caliber. No free fluid or air. Appendix is not clearly identified however no suspicious pericecal inflammatory changes are identified. Large amount of stool. Nodes and vessels: No retroperitoneal or mesenteric adenopathy by size criteria. Aorta and inferior vena cava are normal in caliber. Abdominal wall: No ventral hernias. Pelvis: No free pelvic fluid. Left adnexal cystic lesion measuring 5.2 x 4.3 cm. Recommend further ultrasound evaluation. No inguinal hernias or adenopathy. Bones: No suspicious bony lesions. No vertebral body compression fractures. Diffuse osteopenia and multilevel spondylosis. IMPRESSION: Large 5.2 cm left adnexal cystic lesion, cannot exclude ovarian cystic malignancy in the absence of prior comparison studies. Recommend further evaluation with dedicated pelvic ultrasound. Consider biochemical correlation with CA-125. No urinary obstruction. No nephrolithiasis. Incidental cholelithiasis. Additional chronic and incidental findings as above. Dictated by: Renzo David M.D. on 12/08/2018 at 16:15 Approved by: Renzo David M.D. on 12/08/2018 at 16:23
== END ==
PROVIDERS: PCP Internal Medicine; Visit Provider Internal Medicine
DX: R31.9 Hematuria, unspecified (principal); N94.9 Unspecified condition associated with female genital organs and menstrual cycle; K80.20 Calculus of gallbladder without cholecystitis without obstruction; M85.80 Other specified disorders of bone density and structure, unspecified site; M47.9 Spondylosis, unspecified
CPT/HCPCS: 74176

== ENCOUNTER → 2018-12-16 14:29 | Outpatient (CLI) | payer MEDICARE, OTHER, MEDICAID, SELFPAY ==
[2018-11-26 18:05] VITALS: BMI 50.9
== END ==
PROVIDERS: PCP Internal Medicine; Visit Provider Family Medicine
DX: I87.313 Chronic venous hypertension (idiopathic) with ulcer of bilateral lower extremity (principal); L97.221 Non-pressure chronic ulcer of left calf limited to breakdown of skin; R60.0 Localized edema
CPT/HCPCS: 99213; 99214

== ENCOUNTER → 2018-12-30 13:44 | Outpatient (CLI) | payer MEDICARE, OTHER, MEDICAID, SELFPAY ==
[2018-11-26 18:05] VITALS: BMI 50.9
== END ==
PROVIDERS: PCP Internal Medicine; Visit Provider Family Medicine
DX: I87.2 Venous insufficiency (chronic) (peripheral) (principal); R60.0 Localized edema
CPT/HCPCS: 99212; 99214

== ENCOUNTER → 2019-01-13 10:37 | Outpatient (CLI) | payer MEDICARE, OTHER, MEDICAID, SELFPAY ==
[2018-11-26 18:05] VITALS: BMI 50.9
--- NOTE | 2019-01-13 | DI.US.S_ITS ---
PROCEDURE: US PELVIC COMPLETE INDICATIONS: LEFT ADNEXAL LESION TECHNIQUE: Real-time scanning was performed of the pelvic organs, with image documentation. Additional endovaginal scanning was necessary due to incomplete visualization of the adnexal and endometrial structures by transabdominal scanning. COMPARISON: [facility], CT, CT KIDNEY URETER BLADDER (KUB), 12/08/2018, 14:01. FINDINGS: Transabdominal scanning: Limited scanning through the kidneys shows no hydronephrosis. No pathologic free abdominal or pelvic fluid. Endovaginal scanning: Uterus: Surgically absent Ovaries: Left ovary measures 7.6 x 6.5 x 2.9 cm. There is a 6.1 x 4.7 x 2.3 cm left ovarian, with overall simple appearance. The right ovary not well-visualized sonographically. IMPRESSION: Simple appearing left ovarian cyst however given the size and patient age still cannot exclude cystic ovarian neoplasm in the absence of additional prior studies. Recommend correlation with CA 125 and clinical management. If there is sufficient clinical suspicion, laparoscopic evaluation could be considered. Dictated by: Renzo David M.D. on 01/13/2019 at 15:50 Approved by: Renzo David M.D. on 01/13/2019 at 15:56
== END ==
PROVIDERS: Visit Provider Internal Medicine
DX: N83.202 Unspecified ovarian cyst, left side (principal)
CPT/HCPCS: 76830; 76856

== ENCOUNTER 2019-03-15 09:25 | Emergency (ER) | payer MEDICARE, OTHER, MEDICAID, SELFPAY ==
[2018-11-26 18:05] VITALS: BMI 50.9
[2019-03-15 09:19] VITALS: BP 146/69; PULSE 59; RESP 16; TEMP 36.7; O2SAT 93
--- NOTE | 2019-03-15 09:20 | DI.CT.S_ITS ---
PROCEDURE: CT HEAD/BRAIN WO CON INDICATIONS: fall, hit head on thinners TECHNIQUE: Noncontrast 4.5 mm thick angled axial sections acquired from the foramen magnum to the vertex, with coronal and sagittal reformats. For radiation dose reduction, the following was used: automated exposure control, adjustment of mA and/or kV according to patient size. COMPARISON: [facility], CT, CT HEAD/BRAIN WO CON, 04/02/2018, 11:10. FINDINGS: Image quality: Adequate. There is moderate tilt of the cranium in relation to the axis of the CT scanner CSF spaces: Basal cisterns are patent. No extra-axial fluid collections. The ventricles are symmetric in size and shape. Brain: No intracranial bleeds or masses. There is cerebral volume loss for age, with resultant ventricular and sulcal prominence. There are periventricular and deep white matter chronic small vessel ischemic changes. Remote lacunar infarct in the right basal ganglia. There is intracranial internal carotid artery atherosclerosis. Skull and face: Calvarium and visualized facial bones appear intact, without suspicious lesions. Soft tissue swelling of the forehead on the right. Sinuses: Visualized sinuses and mastoids are clear. IMPRESSION: No acute intracranial hemorrhage. Soft tissue swelling of the right forehead. Chronic microangiopathic changes and remote right basal ganglia lacunar infarct. Dictated by: Roddy Rodriguez M.D. on 03/15/2019 at 9:03 Approved by: Roddy Rodriguez M.D. on 03/15/2019 at 9:10
--- NOTE | 2019-03-15 09:49 | ED.TRAUMA ---
HPI - Trauma General Chief Complaint: Head Injury Stated Complaint: fall, on thinners Time Seen by Provider: 03/15/19 09:29 Source: patient Mode of arrival: EMS Limitations: no limitations History of Present Illness HPI narrative: Patient is brought to the emergency department for evaluation after getting hit in the right side of the head with a [employer] lift handle 2 days ago. The patient is anticoagulated, and staff at her care facility noticed bruising on the face that appeared today. They became concerned and sent her to the emergency department. Patient states she still has somewhat of a headache, but otherwise, has no complaints. No focal neurologic deficits that are new. No visual changes, difficulty speaking or swallowing, numbness or tingling, or weakness in the extremities. Related Data Home Medications Medication Instructions Recorded Confirmed bisacodyl 10 mg [place] PRN PRN #0 07/05/16 11/26/18 hydroxyzine pamoate [Vistaril] 25 mg PO Q6HP PRN #0 07/05/16 11/26/18 nitroglycerin [Nitrostat] 0.4 mg SUBLINGUAL PRN PRN #0 07/05/16 11/26/18 diphenhydramine HCl [Benadryl 25 mg PO Q8HP PRN #0 04/08/17 11/26/18 Allergy] ondansetron HCl 4 mg PO Q4HP PRN #0 04/08/17 11/26/18 bisacodyl 5 - 10 mg PO PRN PRN 12/04/17 11/26/18 nystatin 1 applic TOPICAL PRN PRN 12/04/17 11/26/18 Fleet Enema 1 ea [place] PRN PRN 04/02/18 11/26/18 magnesium hydroxide [Milk of 30 ml PO PRN PRN 04/02/18 11/26/18 Magnesia] Myrbetriq 25 mg PO DAILY 04/03/18 11/26/18 acetaminophen 650 mg PO Q4H PRN MDD 3 g 04/03/18 11/26/18 aripiprazole 2.5 mg PO DAILY 04/03/18 11/26/18 aspirin [Aspir-Low] 81 mg PO DAILY 04/03/18 11/26/18 atorvastatin 40 mg PO BEDTIME 04/03/18 11/26/18 bupropion HCl 100 mg PO BID 04/03/18 11/26/18 diltiazem HCl 240 mg PO DAILY 04/03/18 11/26/18 docusate sodium 200 mg PO BID 04/03/18 11/26/18 duloxetine 60 mg PO DAILY 04/03/18 11/26/18 lisinopril 10 mg PO BID 04/03/18 11/26/18 mirtazapine 15 mg PO BEDTIME 04/03/18 11/26/18 nortriptyline 25 mg PO BEDTIME 04/03/18 11/26/18 pantoprazole 20 mg PO DAILY 04/03/18 11/26/18 potassium chloride 10 meq PO DAILY 04/03/18 11/26/18 acetaminophen 1,000 mg PO BID MDD 3 g 04/14/18 11/26/18 levothyroxine 88 mcg PO DAILY 04/14/18 11/26/18 Lantus U-100 Insulin 57 units SUBCUT BID 06/06/18 11/26/18 furosemide 20 mg PO DAILY 06/06/18 11/26/18 furosemide 40 mg PO DAILY PRN 06/06/18 11/26/18 gabapentin 900 mg PO TID 06/06/18 11/26/18 insulin lispro [Humalog U-100 See Rx Instructions .ROUTE .COMPLEX 06/06/18 11/26/18 Insulin] melatonin 3 mg PO BEDTIME PRN 06/06/18 11/26/18 multivitamin with minerals 1 cap PO DAILY 06/06/18 11/26/18 polyethylene glycol 3350 17 g PO DAILY 06/06/18 11/26/18 sennosides [senna] 17.2 mg PO BID 06/06/18 11/26/18 Previous Rx's Medication Instructions Recorded oxycodone 10 mg PO Q6H PRN #20 tab 04/18/18 oxycodone [OxyContin] 20 mg PO Q12H #30 tab 04/18/18 oxycodone 10 mg PO Q6H PRN #40 tab 11/29/18 oxycodone [OxyContin] 20 mg PO Q12H #40 tab 11/29/18 Allergies Allergy/AdvReac Type Severity Reaction Status Date / Time adhesive [ADHESIVE] Allergy Mild ALLERGY TO Verified 03/15/19 09:38 TAPE Review of Systems Constitutional Constitutional: Denies chills, Denies fatigue, Denies fever(s), Denies frequent falls, Reports headache(s), Denies lethargy and Denies weakness Eyes Eyes: Denies change in vision, Denies eye discharge, Denies irritation and Denies loss of vision ENT Ears, Nose, Mouth, and Throat: Denies change in voice, Denies dizziness, Reports headache(s), Denies neck pain, Denies sore throat and Denies throat swelling Comments: Facial bruising Cardiovascular Cardiovascular: Denies chest pain, Denies irregular heart rhythm, Denies lightheadedness, Denies palpitations, Denies dyspnea, Denies dyspnea on exertion and Denies orthopnea Respiratory Respiratory: Denies cough, Denies dyspnea, Denies dyspnea on exertion and Denies wheezing Gastrointestinal Gastrointestinal: Denies abdominal pain, Denies change in bowel habits, Denies diarrhea, Denies nausea and Denies vomiting Genitourinary Genitourinary: Denies hematuria, Denies flank pain, Denies urinary incontinence and Denies urinary urgency Musculoskeletal Musculoskeletal: Denies back pain, Denies muscle weakness, Denies neck pain, Denies numbness and Denies tingling Integumentary/Breasts Skin/Breast: Denies pruritus, Denies erythema, Denies rash and Denies wounds Neurologic Neurologic: Denies behavioral changes, Denies confusion, Denies dizziness, Denies frequent falls, Reports headache(s), Denies loss of vision, Denies numbness, Denies tingling and Denies weakness Psychiatric Psychiatric: Denies anxiety, Denies behavioral changes, Denies confusion, Denies depression, Denies homicidal ideation and Denies suicidal ideation Endocrine Endocrine: Denies fatigue, Denies flushing and Denies palpitations Hematologic/Lymphatic Hematologic/Lymphatic: Denies easy bruising Allergic/Immunologic Allergic/Immunologic: Denies urticaria, Denies throat swelling and Denies wheezing Patient History Medical History Anemia (Chronic) Atherosclerotic heart disease of [place] coronary artery without angina pectoris (Chronic) Atrial fibrillation (Chronic) Chronic kidney disease, stage 3 (Chronic) Chronic pain syndrome (Chronic) Diabetes (Chronic) Gastroesophageal reflux disease (Chronic) Hereditary and idiopathic neuropathy, unspecified (Chronic) Hyperlipidemia (Chronic) Hypertension (Chronic) Hypertensive chronic kidney disease with stage 1 through stage 4 chronic kidney disease, or unspecified chronic kidney disease (Chronic) Hypothyroidism (Chronic) Insomnia (Chronic) 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) Major depressive disorder (Chronic) Obesity (Chronic) Obstructive sleep apnea (Chronic) Urinary incontinence (Chronic) Venous insufficiency (chronic) (peripheral) (Chronic) Wheelchair bound (Chronic) Surgical History History of bilateral knee replacement (Resolved) Family History (Updated 06/06/18 @ 17:36 by Serena Benitez PA-C) Other Family history non-contributory Social History household members: caregiver Smoking Status: Former smoker alcohol intake: never Family History Other Family history non-contributory Social History household members: caregiver Smoking Status: Former smoker alcohol intake: never alcohol intake frequency: 0-2 drinks per day Substance Use Type: does not use Exam Initial Vital Signs Initial Vital Signs: Vital Signs Temperature 98.1 F 03/15/19 09:19 Pulse Rate 59 L 03/15/19 09:19 Respiratory Rate 16 03/15/19 09:19 Blood Pressure 146/69 H 03/15/19 09:19 Pulse Oximetry 93 03/15/19 09:19 Const General: cooperative and well developed Nutritional Appearance: well nourished Orientation: alert, awake, oriented x3 and not confused [facility] Head: normocephalic and contusion (Right forehead, bilateral periorbital areas; minimal swelling) Ears: external ears normal Nose: external nose normal and No nasal discharge Face and sinus: sinuses nontender, face symmetric and No dry mucous membranes Mouth: oral mucosae normal and moist mucous membranes Teeth and gingiva: dentition normal Eyes General: appearance normal, both eyes and all related structures Eyelids: eyelids normal Conjunctivae: conjunctivae normal Sclera: sclerae normal Pupils: PERRL EOM: EOM intact bilaterally Neck Neck: normal visual inspection, trachea midline, No lymphadenopathy, No midline deformity and No JVD Lymphatic: No lymphedema Chest Chest: normal inspection of the chest Resp Effort & Inspection: normal respiratory effort, able to speak in complete sentences, no respiratory distress and no use of accessory muscles Auscultation: clear to auscultation bilaterally, no rales, no rhonchi and no wheezes Cardio Rate: regular rate Rhythm: regular rhythm Heart Sounds: no click, no gallops, no murmurs and no rubs Pulses: normal peripheral pulses GI Inspection: non-distended Palpation: soft, no hepatosplenomegaly, No guarding, No pulsatile mass and No tender Back/Spine/Pelvis Back: No CVA tenderness Cervical Spine: cervical ROM normal and No pain with cervical ROM Thoracic/Lumbar Spine: thoracic and lumbar spine normal to inspection Skin General: no rashes or lesions noted, No jaundice and No petechiae Neuro General: alert, awake, oriented x3 and no focal motor deficits Cranial Nerves: CN's II-XI intact bilaterally Speech: speech normal Motor: muscle tone normal throughout Extrem General: full ROM, no clubbing, cyanosis or edema, no pedal edema and no calf tenderness Psych Appearance: well kempt Mental Status: mental status grossly normal Attitude: cooperative Thought Content: normal and suicidality Judgment: judgment good Course Course Course Narrative: Patient was worked up with CT scan of the head, which was unremarkable for acute intracranial pathology. Patient was deemed stable for discharge home. We have discussed the usual indications for return. Orders Ordered: ED Orders 03/15/19 09:20 CT head/brain wo con Stat Vital Signs Vital signs: Vital Signs - 8 hr 03/15/19 09:19 Temperature 98.1 F Pulse Rate 59 L Respiratory Rate 16 Blood Pressure 146/69 H Pulse Oximetry 93 MDM - Trauma Medical Records Attestation: I reviewed the patient's medical records. Imaging Data CT scan - head: My impression: Radiology interpretation not available to paced into the note. Interpreted by myself and the radiologist as unremarkable. No intracranial hemorrhage. Discharge Plan Departure Patient Disposition: Home Clinical Impression: Closed head injury Qualifiers: Encounter type: initial encounter Qualified Code(s): S09.90XA - Unspecified injury of head, initial encounter Contusion Qualifiers: Encounter type: initial encounter Contusion area: head Contusion of head detail: other part of head Qualified Code(s): S00.83XA - Contusion of other part of head, initial encounter Discharge Date/Time: 03/15/19 11:56 Instructions: DI for Contusion Activity Restrictions/Additional Instructions: The CT scan looks great. There is no evidence of any bleeding in the brain, but only external bruising. This will go away on its own within the next couple of weeks. Prescriptions: No Action bisacodyl 10 MG suppository 10 mg [place] PRN PRN (Reason: Constipation) Qty: 0 RF: 0 nitroglycerin [Nitrostat] 0.4 MG tablet, sublingual 0.4 mg Sublingual PRN PRN (Reason: Chest Pain) Qty: 0 RF: 0 hydroxyzine pamoate [Vistaril] 25 MG capsule 25 mg PO Q6HP PRN (Reason: Spasms) Qty: 0 RF: 0 diphenhydramine HCl [Benadryl Allergy] 25 MG tablet 25 mg PO Q8HP PRN (Reason: Itching) Qty: 0 RF: 0 ondansetron HCl 4 MG tablet 4 mg PO Q4HP PRN (Reason: Nausea) Qty: 0 RF: 0 magnesium hydroxide [Milk of Magnesia] 400 mg/5 mL Suspension 30 ml PO PRN PRN (Reason: Constipation) RF: 0 Fleet Enema 19-7 gram/118 mL Enema 1 ea [place] PRN PRN (Reason: Constipation) RF: 0 atorvastatin 40 mg Tablet 40 mg PO BEDTIME RF: 0 potassium chloride 10 mEq Capsule, Extended Release 10 meq PO DAILY RF: 0 acetaminophen 325 mg Tablet 650 mg PO Q4H MDD 3 g PRN (Reason: pain) RF: 0 diltiazem HCl 240 mg Capsule,Extended Release 24 Hr 240 mg PO DAILY RF: 0 aspirin [Aspir-Low] 81 mg Tablet,Delayed Release (Dr/Ec) 81 mg PO DAILY RF: 0 bupropion HCl 100 mg Tablet Sustained-Release 12 Hr 100 mg PO BID RF: 0 pantoprazole 20 mg Tablet,Delayed Release (Dr/Ec) 20 mg PO DAILY RF: 0 nortriptyline 25 mg Capsule 25 mg PO BEDTIME RF: 0 lisinopril 10 mg Tablet 10 mg PO BID RF: 0 mirtazapine 15 mg Tablet 15 mg PO BEDTIME RF: 0 docusate sodium 100 mg Tablet 200 mg PO BID RF: 0 aripiprazole 5 mg Tablet 2.5 mg PO DAILY RF: 0 duloxetine 60 mg Capsule,Delayed Release(Dr/Ec) 60 mg PO DAILY RF: 0 Myrbetriq 25 mg Tablet Extended Release 24 Hr 25 mg PO DAILY RF: 0 bisacodyl 5 mg Tablet 5 - 10 mg PO PRN PRN (Reason: Constipation) RF: 0 nystatin 100,000 unit/gram Powder 1 applic TOPICAL PRN PRN (Reason: Rash) RF: 0 acetaminophen 500 mg Tablet 1,000 mg PO BID MDD 3 g RF: 0 levothyroxine 88 mcg tablet 88 mcg PO DAILY RF: 0 oxycodone 10 mg Tablet 10 mg PO Q6H PRN (Reason: breakthrough pain level 5-10) Qty: 20 RF: 0 oxycodone [OxyContin] 20 mg Tablet,Oral Only,Ext.Rel.12 Hr 20 mg PO Q12H Qty: 30 RF: 0 furosemide 20 mg Tablet 20 mg PO DAILY RF: 0 polyethylene glycol 3350 17 gram/dose Powder 17 g PO DAILY RF: 0 multivitamin with minerals Capsule 1 cap PO DAILY RF: 0 furosemide 40 mg Tablet 40 mg PO DAILY PRN (Reason: Edema) RF: 0 sennosides [senna] 8.6 mg Tablet 17.2 mg PO BID RF: 0 Lantus U-100 Insulin 100 unit/mL Solution 57 units subcut BID RF: 0 melatonin 3 mg Tablet 3 mg PO BEDTIME PRN (Reason: Insomnia) RF: 0 gabapentin 300 mg Capsule 900 mg PO TID RF: 0 insulin lispro [Humalog U-100 Insulin] 100 unit/mL Solution See Rx Instructions .ROUTE .COMPLEX RF: 0 oxycodone 10 mg Tablet 10 mg PO Q6H PRN (Reason: breakthrough pain level 5-10) Qty: 40 RF: 0 oxycodone [OxyContin] 20 mg Tablet,Oral Only,Ext.Rel.12 Hr 20 mg PO Q12H Qty: 40 RF: 0 Referrals: Marleny Narvaez [Other]
[2019-03-15 11:18] VITALS: BP 151/43; PULSE 57; RESP 16; O2SAT 97
== END 2019-03-15 11:56 | disposition home or self-care (01) ==
PROVIDERS: Emergency Provider Emergency Medicine
DX: S09.90XA Unspecified injury of head, initial encounter (principal); S00.83XA Contusion of other part of head, initial encounter; Z79.01 Long term (current) use of anticoagulants
CPT/HCPCS: 70450; 99283; 99284

== ENCOUNTER → 2019-05-24 22:57 | Outpatient (ROUT) | payer MEDICARE, OTHER, MEDICAID, SELFPAY ==
[2018-11-26 18:05] VITALS: BMI 50.9
== END ==
PROVIDERS: Visit Provider Internal Medicine
DX: T14.8XXA Other injury of unspecified body region, initial encounter (principal)
CPT/HCPCS: 87070; 87075; 87077; 87186; 87205

== ENCOUNTER 2019-05-30 10:31 | Emergency (ER) | payer MEDICARE, OTHER, MEDICAID, SELFPAY ==
[2018-11-26 18:05] VITALS: BMI 50.9
[2019-05-30] VITALS (13 sets, daily range): BP systolic 113–156; BP diastolic 51–74; PULSE 70–96; RESP 12–32; TEMP 37.1; O2SAT 87–97
--- NOTE | 2019-05-30 10:48 | ED.SOB ---
HPI - SOB/Dyspnea General Chief Complaint: Shortness of Breath/Dyspnea Stated Complaint: Low O2 Time Seen by Provider: 05/30/19 10:37 Source: EMS Mode of arrival: EMS History of Present Illness HPI Narrative: Patient is a 78-year-old female with history of obesity presenting with low oxygen levels. She resides at a long-term care facility and has been there for the last 3 years. Apparently vitals this morning she was found to have oxygen level of 86% on room air. Patient is completely asymptomatic she denies any chest pain shortness this of breath heart palpitations weakness numbness or tingling. She is found to be slightly hypoxic here in the emergency department of 88% on room air. She does not normally wear oxygen infection does not have it. Treatment prior to arrival: oxygen Related Data Home oxygen amount: none Home Medications Medication Instructions Recorded Confirmed bisacodyl 10 mg WI PRN PRN #0 07/05/16 05/05/19 hydroxyzine pamoate [Vistaril] 25 mg PO Q6HP PRN #0 07/05/16 05/05/19 nitroglycerin [Nitrostat] 0.4 mg SUBLINGUAL PRN PRN #0 07/05/16 05/05/19 diphenhydramine HCl [Benadryl 25 mg PO Q8HP PRN #0 04/08/17 05/05/19 Allergy] ondansetron HCl 4 mg PO Q4HP PRN #0 04/08/17 05/05/19 bisacodyl 5 - 10 mg PO PRN PRN 12/04/17 05/05/19 nystatin 1 applic TOPICAL PRN PRN 12/04/17 05/05/19 Fleet Enema 1 ea WI PRN PRN 04/02/18 05/05/19 magnesium hydroxide [Milk of 30 ml PO PRN PRN 04/02/18 05/05/19 Magnesia] Myrbetriq 25 mg PO DAILY 04/03/18 05/05/19 acetaminophen 650 mg PO Q4H PRN MDD 3 g 04/03/18 05/05/19 aripiprazole 2.5 mg PO DAILY 04/03/18 05/05/19 aspirin [Aspir-Low] 81 mg PO DAILY 04/03/18 05/05/19 atorvastatin 40 mg PO BEDTIME 04/03/18 05/05/19 bupropion HCl 100 mg PO BID 04/03/18 05/05/19 diltiazem HCl 240 mg PO DAILY 04/03/18 05/05/19 docusate sodium 200 mg PO BID 04/03/18 05/05/19 duloxetine 60 mg PO DAILY 04/03/18 05/05/19 lisinopril 10 mg PO BID 04/03/18 05/05/19 mirtazapine 15 mg PO BEDTIME 04/03/18 05/05/19 nortriptyline 25 mg PO BEDTIME 04/03/18 05/05/19 pantoprazole 20 mg PO DAILY 04/03/18 05/05/19 potassium chloride 10 meq PO DAILY 04/03/18 05/05/19 acetaminophen 1,000 mg PO BID MDD 3 g 04/14/18 05/05/19 levothyroxine 88 mcg PO DAILY 04/14/18 05/05/19 Lantus U-100 Insulin 57 units SUBCUT BID 06/06/18 05/05/19 furosemide 20 mg PO DAILY 06/06/18 05/05/19 furosemide 40 mg PO DAILY PRN 06/06/18 05/05/19 gabapentin 900 mg PO TID 06/06/18 05/05/19 insulin lispro [Humalog U-100 See Rx Instructions .ROUTE .COMPLEX 06/06/18 05/05/19 Insulin] melatonin 3 mg PO BEDTIME PRN 06/06/18 05/05/19 multivitamin with minerals 1 cap PO DAILY 06/06/18 05/05/19 polyethylene glycol 3350 17 g PO DAILY 06/06/18 05/05/19 sennosides [senna] 17.2 mg PO BID 06/06/18 05/05/19 Previous Rx's Medication Instructions Recorded oxycodone 10 mg PO Q6H PRN #20 tab 04/18/18 oxycodone [OxyContin] 20 mg PO Q12H #30 tab 04/18/18 oxycodone 10 mg PO Q6H PRN #40 tab 11/29/18 oxycodone [OxyContin] 20 mg PO Q12H #40 tab 11/29/18 Allergies Allergy/AdvReac Type Severity Reaction Status Date / Time adhesive [ADHESIVE] Allergy Mild ALLERGY TO Verified 05/05/19 12:59 TAPE Review of Systems Review of Systems Narrative: GENERAL: Denies chills, fatigue, malaise, fever, sweats, travel HEENT: Denies sinus pain, ear pain, sore throat, difficulty swallowing, neck pain RESPIRATORY: See HPI CARDIOVASCULAR: Denies chest pain, palpitations, orthopnea, edema GASTROINTESTINAL: Denies nausea, vomiting, abdominal pain, diarrhea, constipation, melena. : Denies dysuria, frequency, incontinence, hematuria, urinary retention, flank pain. MUSCULOSKELETAL: Denies weakness, joint pain, or bony pain SKIN: No rash, no erythema, no pruritus NEUROLOGIC: Denies weakness, dizziness, headache, numbness, change in speech, confusion PSYCHIATRIC: No concerning psychosocial issues. 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) Atrial fibrillation (Chronic) Chronic kidney disease, stage 3 (Chronic) Chronic pain syndrome (Chronic) Diabetes (Chronic) Gastroesophageal reflux disease (Chronic) Hereditary and idiopathic neuropathy, unspecified (Chronic) Hyperlipidemia (Chronic) Hypertension (Chronic) Hypertensive chronic kidney disease with stage 1 through stage 4 chronic kidney disease, or unspecified chronic kidney disease (Chronic) Hypothyroidism (Chronic) Insomnia (Chronic) care home current use of anticoagulant therapy (Chronic) Major depressive disorder (Chronic) Obesity (Chronic) Obstructive sleep apnea (Chronic) Urinary incontinence (Chronic) Venous insufficiency (chronic) (peripheral) (Chronic) Wheelchair bound (Chronic) Surgical History History of bilateral knee replacement (Resolved) Family History Other Family history non-contributory Social History household members: caregiver Smoking Status: Former smoker alcohol intake: never Smoking Status: Former smoker alcohol intake frequency: 0-2 drinks per day Substance Use Type: does not use Exam Initial Vital Signs Initial Vital Signs: Vital Signs Temperature 98.8 F 05/30/19 10:34 Pulse Rate 96 H 05/30/19 10:34 Respiratory Rate 27 H 05/30/19 10:34 Blood Pressure 123/60 05/30/19 10:34 Pulse Oximetry 88 L 05/30/19 10:34 GENERAL: Obese woman no acute distress HEENT: Head atraumatic,EOMI, pupils reactive, face symmetric, CARDIOVASCULAR: Irregularly irregular RESPIRATORY: Breath sounds equal bilaterally, no wheezes rales or rhonchi. ABDOMEN: Soft, nontender. Normoactive bowel sounds all 4 quadrants. No guarding or rebound. EXTREMITIES: Normal range of motion, no clubbing or edema. Neurovascularly intact NEUROLOGICAL: Alert and oriented x4.Normal gait and speech. Cranial nerves II through XII grossly intact. SKIN: Warm, dry, no laceration, no petechiae, no rashes or lesions. Course Orders Ordered: ED Orders 05/30/19 10:49 CT angio chest PE protocol Stat 05/30/19 11:30 B Type Natriuretic Peptide Stat Complete Blood Count AUTO DIFF Stat Comprehensive Metabolic Panel Stat Lactate (Lactic Acid) Stat Magnesium Stat Partial Thromboplastin Time Stat Procalcitonin Stat Prothrombin Time INR Stat Troponin & CK Cardiac Panel Stat 05/30/19 11:52 Blood Culture Stat 05/30/19 14:20 Arterial Blood Gas Stat 05/30/19 14:47 RT Consult Eval and Treat NOW 05/30/19 14:57 Evaluate for home oxygen NOW Discontinued Medications Albuterol (Ventolin) 2.5 mg INH NOW ONE Stop: 05/30/19 13:23 Last Admin: 05/30/19 13:41 Dose: 2.5 mg Documented by: ALIYA Furosemide (Lasix) 40 mg IV NOW ONE Stop: 05/30/19 14:53 Last Admin: 05/30/19 15:50 Dose: 40 mg Documented by: KHADAR Magnesium Oxide (Mag Ox) 400 mg PO NOW ONE Stop: 05/30/19 15:18 Last Admin: 05/30/19 15:50 Dose: 400 mg Documented by: KHADAR Vital Signs Vital signs: Vital Signs - 8 hr 05/30/19 10:34 05/30/19 11:00 05/30/19 11:30 Temperature 98.8 F Pulse Rate 96 H 86 86 Respiratory Rate 27 H 28 H 32 H Blood Pressure 123/60 Blood Pressure [Left Arm] 113/61 126/62 Pulse Oximetry 88 L 87 L 87 L 05/30/19 11:35 05/30/19 12:00 05/30/19 13:00 Temperature Pulse Rate 82 77 Respiratory Rate 25 H 24 22 Blood Pressure Blood Pressure [Left Arm] 126/62 137/55 L Pulse Oximetry 95 93 93 05/30/19 13:42 05/30/19 14:04 05/30/19 15:15 Temperature Pulse Rate 70 73 73 Respiratory Rate 23 12 Blood Pressure Blood Pressure [Left Arm] 141/51 H 155/74 H Pulse Oximetry 97 92 95 05/30/19 15:52 05/30/19 16:39 Temperature Pulse Rate 77 88 Respiratory Rate 18 19 Blood Pressure 156/68 H Blood Pressure [Left Arm] 155/74 H Pulse Oximetry 95 95 MDM - SOB/Dyspnea Lab Data Result diagrams: 05/30/19 11:30 05/30/19 11:30 Labs: Lab Results 05/30/19 05/30/19 05/30/19 Range/Units 11:30 11:30 11:30 WBC 13.7 H (4.5-11.0) X10^3/uL RBC 4.39 (4.0-5.2) X10^6/uL Hgb 13.7 (12.0-16.0) g/dL Hct 41.4 (36-46) % MCV 94.4 (80-100) fL MCH 31.2 (26-34) PG MCHC 33.0 (30-36) % RDW 15.5 H (11.6-14.8) % Plt Count 221 (150-400) X10^3/uL Neut % (Auto) 62.8 (50-75) % Lymph % (Auto) 6.5 L (25-40) % Castro % (Auto) 30.0 H (3-14) % Eos % (Auto) 0.5 L (2-4) % Baso % (Auto) 0.2 (0-2) % Neut # (Auto) 8600 H (1949-0901) /uL Lymph # (Auto) 900 L (2336-6342) /uL Castro # (Auto) 4100 H (0-900) /uL Eos # (Auto) 100 (0-450) /uL Baso # (Auto) 0 (0-100) /uL PT 16.1 H (10.1-12.7) SECONDS INR 1.4 H (0.9-1.3) APTT 37 H (26.4-36.2) SECONDS ABG pH (7.35-7.45) ABG pCO2 (35-45) mmHg ABG pO2 (80-100) mmHg ABG HCO3 (22-26) mmol/L ABG Total CO2 (21-31) mmol/L ABG O2 Saturation (95-100) % ABG Base Excess (-2-2) mmol/L FiO2 Sodium 139 (137-145) mmol/L Potassium 3.8 (3.4-5.1) mmol/L Chloride 96 L (98-107) mmol/L Carbon Dioxide 33 H (22-32) mmol/L BUN 13 (7-17) mg/dL Creatinine 0.90 (0.52-1.04) mg/dL Estimated GFR > 60.0 (>60) mL/min BUN/Creatinine Ratio 14.4 (6-22) Glucose 258 H (80-110) mg/dL Lactate (0.7-2.1) mmol/L Calcium 8.8 (8.4-10.2) mg/dL Magnesium 1.2 L (1.6-2.3) mg/dL Total Bilirubin 0.8 (0.2-1.3) mg/dL AST 22 (14-36) IU/L ALT 24 (<35) IU/L Alkaline Phosphatase 92 (38-126) U/L Total Creatine Kinase < 20 L (30-135) U/L CK-MB (CK-2) TNP CK-MB (CK-2) Rel Index TNP Troponin I < 0.012 (0.01-0.034) ng/mL B-Natriuretic Peptide < 100 (<100) Total Protein 7.6 (6.3-8.2) g/dL Albumin 4.1 (3.5-5.0) g/dL Globulin 3.5 (1.7-4.1) g/dL Albumin/Globulin Ratio 1.2 (1.0-2.8) Procalcitonin (<0.5) ng/mL 05/30/19 05/30/19 05/30/19 Range/Units 11:30 11:30 14:09 WBC (4.5-11.0) X10^3/uL RBC (4.0-5.2) X10^6/uL Hgb (12.0-16.0) g/dL Hct (36-46) % MCV (80-100) fL MCH (26-34) PG MCHC (30-36) % RDW (11.6-14.8) % Plt Count (150-400) X10^3/uL Neut % (Auto) (50-75) % Lymph % (Auto) (25-40) % Castro % (Auto) (3-14) % Eos % (Auto) (2-4) % Baso % (Auto) (0-2) % Neut # (Auto) (4803-6887) /uL Lymph # (Auto) (5859-4921) /uL Castro # (Auto) (0-900) /uL Eos # (Auto) (0-450) /uL Baso # (Auto) (0-100) /uL PT (10.1-12.7) SECONDS INR (0.9-1.3) APTT (26.4-36.2) SECONDS ABG pH (7.35-7.45) ABG pCO2 (35-45) mmHg ABG pO2 (80-100) mmHg ABG HCO3 (22-26) mmol/L ABG Total CO2 (21-31) mmol/L ABG O2 Saturation (95-100) % ABG Base Excess (-2-2) mmol/L FiO2 Sodium (137-145) mmol/L Potassium (3.4-5.1) mmol/L Chloride (98-107) mmol/L Carbon Dioxide (22-32) mmol/L BUN (7-17) mg/dL Creatinine (0.52-1.04) mg/dL Estimated GFR (>60) mL/min BUN/Creatinine Ratio (6-22) Glucose (80-110) mg/dL Lactate 2.9 H 1.8 (0.7-2.1) mmol/L Calcium (8.4-10.2) mg/dL Magnesium (1.6-2.3) mg/dL Total Bilirubin (0.2-1.3) mg/dL AST (14-36) IU/L ALT (<35) IU/L Alkaline Phosphatase (38-126) U/L Total Creatine Kinase (30-135) U/L CK-MB (CK-2) CK-MB (CK-2) Rel Index Troponin I (0.01-0.034) ng/mL B-Natriuretic Peptide (<100) Total Protein (6.3-8.2) g/dL Albumin (3.5-5.0) g/dL Globulin (1.7-4.1) g/dL Albumin/Globulin Ratio (1.0-2.8) Procalcitonin 0.35 (<0.5) ng/mL 05/30/19 Range/Units 14:20 WBC (4.5-11.0) X10^3/uL RBC (4.0-5.2) X10^6/uL Hgb (12.0-16.0) g/dL Hct (36-46) % MCV (80-100) fL MCH (26-34) PG MCHC (30-36) % RDW (11.6-14.8) % Plt Count (150-400) X10^3/uL Neut % (Auto) (50-75) % Lymph % (Auto) (25-40) % Castro % (Auto) (3-14) % Eos % (Auto) (2-4) % Baso % (Auto) (0-2) % Neut # (Auto) (3582-3224) /uL Lymph # (Auto) (9816-8490) /uL Castro # (Auto) (0-900) /uL Eos # (Auto) (0-450) /uL Baso # (Auto) (0-100) /uL PT (10.1-12.7) SECONDS INR (0.9-1.3) APTT (26.4-36.2) SECONDS ABG pH 7.44 (7.35-7.45) ABG pCO2 49.5 H (35-45) mmHg ABG pO2 58 L (80-100) mmHg ABG HCO3 34 H (22-26) mmol/L ABG Total CO2 35 H (21-31) mmol/L ABG O2 Saturation 90 L (95-100) % ABG Base Excess 9.0 H (-2-2) mmol/L FiO2 21 Sodium (137-145) mmol/L Potassium (3.4-5.1) mmol/L Chloride (98-107) mmol/L Carbon Dioxide (22-32) mmol/L BUN (7-17) mg/dL Creatinine (0.52-1.04) mg/dL Estimated GFR (>60) mL/min BUN/Creatinine Ratio (6-22) Glucose (80-110) mg/dL Lactate (0.7-2.1) mmol/L Calcium (8.4-10.2) mg/dL Magnesium (1.6-2.3) mg/dL Total Bilirubin (0.2-1.3) mg/dL AST (14-36) IU/L ALT (<35) IU/L Alkaline Phosphatase (38-126) U/L Total Creatine Kinase (30-135) U/L CK-MB (CK-2) CK-MB (CK-2) Rel Index Troponin I (0.01-0.034) ng/mL B-Natriuretic Peptide (<100) Total Protein (6.3-8.2) g/dL Albumin (3.5-5.0) g/dL Globulin (1.7-4.1) g/dL Albumin/Globulin Ratio (1.0-2.8) Procalcitonin (<0.5) ng/mL Imaging Data CT scan - chest: Radiologist's Impression: PROCEDURE: CT ANGIO CHEST PE PROTOCOL INDICATIONS: hypoxia TECHNIQUE: After the administration of intravenous contrast, 2 mm thick sections acquired from the pulmonary apices to the posterior costophrenic angles. 3-dimensional maximum intensity projection (MIP) coronal and sagittal reformats were then acquired through the thorax. For radiation dose reduction, the following was used: automated exposure control, adjustment of mA and/or kV according to patient size. COMPARISON: [facility], CT, PE STUDY (CTA CHEST), 04/12/2016, 11:53. [facility], CT, PE STUDY (CTA CHEST), 03/09/2014, 12:07. [facility], CT, PE STUDY (CTA CHEST), 02/03/2007, 6:09. FINDINGS: Image quality: There is streak artifact seen in the upper abdomen. Pulmonary arteries: Pulmonary arteries are normal in size, and demonstrate no intraluminal filling defects to suggest central pulmonary embolism. Lungs and pleura: Lungs are clear. No pleural effusions or pneumothorax. Central and peripheral airways are patent. Mediastinum: Heart size is normal, without pericardial effusion. Coronary artery calcifications are seen. No mediastinal or hilar adenopathy. Thoracic aorta is normal in caliber and enhancement. Esophagus is normal in caliber, without hiatal hernia. Bones and chest wall: No suspicious bony lesions. Age-appropriate bony degenerative changes are seen. Ribs and thoracic spine appear intact throughout. Thyroid gland demonstrates no significant CT abnormality. No axillary or supraclavicular adenopathy. Abdomen: An enlarged, fatty liver is seen. Visualized upper abdominal solid organs appear normal in the early arterial phase of enhancement. IMPRESSION: Negative for pulmonary embolism. Incidental note is made of: Coronary artery calcification Prominent fatty liver. Dictated by: Mike Reid M.D. on 05/30/2019 at 11:55 ECG Data Attestation: I personally reviewed and interpreted this ECG as follows: Prior ECG tracings: available for review Interpretation: Atrial fibrillation rate [address] changes similar to previous EKG in May 2018 MDM Narrative Medical decision making narrative: Patient continues to require 1-2 L of oxygen. BNP negative she is in no respiratory distress her lungs sound relatively clear. Chest CT is negative. The patient is given 1 albuterol she is sitting upright. ABG does show very mild hypoxia with PO2 of 50 6 the upper arm level is between 89 and 90%. I discussed with hospitalist admission however at this time she really doesn't meet any kind of criteria. Try to get home oxygen arranged however not available until Saturday which is 2 days away. However after patient is sitting up and given incentive spirometer her O2 remains at about 93% I recommend that she sit upright and use incentive spirometer frequently. At this time no specific cause of hypoxia. Discharge Plan Departure Patient Disposition: Home Clinical Impression: Feared complaint without diagnosis Instructions: DI for Respiratory Failure Activity Restrictions/Additional Instructions: *You have been diagnosed with hypoxia or reason for decreased oxygen not found *What to do: At this time no qualifications for oxygen however you may still need it. Recommend a sitting up right for at least 8 hours a day and using incentive spirometer frequently at least 10 times an hour will help improve the oxygen. *Continue to take medications as directed *Follow up with your primary care provider in 2-3 days *Return to ER if you should have increased shortness of breath, chest pain or any new, worsening or concerning symptoms Prescriptions: No Action bisacodyl 10 MG suppository 10 mg WI PRN PRN (Reason: Constipation) Qty: 0 RF: 0 nitroglycerin [Nitrostat] 0.4 MG tablet, sublingual 0.4 mg Sublingual PRN PRN (Reason: Chest Pain) Qty: 0 RF: 0 hydroxyzine pamoate [Vistaril] 25 MG capsule 25 mg PO Q6HP PRN (Reason: Spasms) Qty: 0 RF: 0 diphenhydramine HCl [Benadryl Allergy] 25 MG tablet 25 mg PO Q8HP PRN (Reason: Itching) Qty: 0 RF: 0 ondansetron HCl 4 MG tablet 4 mg PO Q4HP PRN (Reason: Nausea) Qty: 0 RF: 0 magnesium hydroxide [Milk of Magnesia] 400 mg/5 mL Suspension 30 ml PO PRN PRN (Reason: Constipation) RF: 0 Fleet Enema 19-7 gram/118 mL Enema 1 ea WI PRN PRN (Reason: Constipation) RF: 0 atorvastatin 40 mg Tablet 40 mg PO BEDTIME RF: 0 potassium chloride 10 mEq Capsule, Extended Release 10 meq PO DAILY RF: 0 acetaminophen 325 mg Tablet 650 mg PO Q4H MDD 3 g PRN (Reason: pain) RF: 0 diltiazem HCl 240 mg Capsule,Extended Release 24 Hr 240 mg PO DAILY RF: 0 aspirin [Aspir-Low] 81 mg Tablet,Delayed Release (Dr/Ec) 81 mg PO DAILY RF: 0 bupropion HCl 100 mg Tablet Sustained-Release 12 Hr 100 mg PO BID RF: 0 pantoprazole 20 mg Tablet,Delayed Release (Dr/Ec) 20 mg PO DAILY RF: 0 nortriptyline 25 mg Capsule 25 mg PO BEDTIME RF: 0 lisinopril 10 mg Tablet 10 mg PO BID RF: 0 mirtazapine 15 mg Tablet 15 mg PO BEDTIME RF: 0 docusate sodium 100 mg Tablet 200 mg PO BID RF: 0 aripiprazole 5 mg Tablet 2.5 mg PO DAILY RF: 0 duloxetine 60 mg Capsule,Delayed Release(Dr/Ec) 60 mg PO DAILY RF: 0 Myrbetriq 25 mg Tablet Extended Release 24 Hr 25 mg PO DAILY RF: 0 bisacodyl 5 mg Tablet 5 - 10 mg PO PRN PRN (Reason: Constipation) RF: 0 nystatin 100,000 unit/gram Powder 1 applic TOPICAL PRN PRN (Reason: Rash) RF: 0 acetaminophen 500 mg Tablet 1,000 mg PO BID MDD 3 g RF: 0 levothyroxine 88 mcg tablet 88 mcg PO DAILY RF: 0 oxycodone 10 mg Tablet 10 mg PO Q6H PRN (Reason: breakthrough pain level 5-10) Qty: 20 RF: 0 oxycodone [OxyContin] 20 mg Tablet,Oral Only,Ext.Rel.12 Hr 20 mg PO Q12H Qty: 30 RF: 0 furosemide 20 mg Tablet 20 mg PO DAILY RF: 0 polyethylene glycol 3350 17 gram/dose Powder 17 g PO DAILY RF: 0 multivitamin with minerals Capsule 1 cap PO DAILY RF: 0 furosemide 40 mg Tablet 40 mg PO DAILY PRN (Reason: Edema) RF: 0 sennosides [senna] 8.6 mg Tablet 17.2 mg PO BID RF: 0 Lantus U-100 Insulin 100 unit/mL Solution 57 units subcut BID RF: 0 melatonin 3 mg Tablet 3 mg PO BEDTIME PRN (Reason: Insomnia) RF: 0 gabapentin 300 mg Capsule 900 mg PO TID RF: 0 insulin lispro [Humalog U-100 Insulin] 100 unit/mL Solution See Rx Instructions .ROUTE .COMPLEX RF: 0 oxycodone 10 mg Tablet 10 mg PO Q6H PRN (Reason: breakthrough pain level 5-10) Qty: 40 RF: 0 oxycodone [OxyContin] 20 mg Tablet,Oral Only,Ext.Rel.12 Hr 20 mg PO Q12H Qty: 40 RF: 0 Referrals: Marleny Narvaez MD [Physician] -
[2019-05-30 11:56] LABS: Add Manual Diff / Slide Review NO; Basophils Absolute Auto 0 /uL (0-100); Basophils Percent Auto 0.2 % (0-2); Eosinophils Absolute Auto 100 /uL (0-450); Eosinophils Percent Auto 0.5 % (2-4); Hematocrit 41.4 % (36-46); Hemoglobin 13.7 g/dL (12.0-16.0); Lymphocytes Absolute Auto 900 /uL (1100-4500); Lymphocytes Percent Auto 6.5 % (25-40); Mean Corpuscular Hemoglobin 31.2 PG (26-34); Mean Corpuscular Volume 94.4 fL (80-100); Monocytes Absolute Auto 4100 /uL (0-900); Neutrophils Absolute Auto 8600 /uL (1500-7000); Neutrophils Percent Auto 62.8 % (50-75); Platelet Count 221 X10^3/uL (150-400); Red Blood Cell Count 4.39 X10^6/uL (4.0-5.2); Red Cell Distribution Width 15.5 % (11.6-14.8); White Blood Cell Count 13.7 X10^3/uL (4.5-11.0)
[2019-05-30 12:02] LABS: INR 1.4 (0.9-1.3); Prothrombin Time 16.1 SECONDS (10.1-12.7)
[2019-05-30 12:05] LABS: PTT Partial Thromboplastin Tim 37 SECONDS (26.4-36.2)
[2019-05-30 12:10] LABS: Alanine Aminotransferase 24 IU/L (<35); Albumin 4.1 g/dL (3.5-5.0); Albumin Globulin Ratio 1.2 (1.0-2.8); Alkaline Phosphatase 92 U/L (38-126); Aspartate Aminotransferase 22 IU/L (14-36); BUN Creatinine Ratio 14.4 (6-22); Bilirubin Total 0.8 mg/dL (0.2-1.3); Blood Urea Nitrogen 13 mg/dL (7-17); Calcium 8.8 mg/dL (8.4-10.2); Carbon Dioxide 33 mmol/L (22-32); Chloride 96 mmol/L (98-107); Creatine Kinase < 20 U/L (30-135); Estimated Glomerular Filt Rate > 60.0 mL/min (>60); Globulin 3.5 g/dL (1.7-4.1); Glucose 258 mg/dL (80-110); HEMOLYSIS < 15 (0-50); Magnesium 1.2 mg/dL (1.6-2.3); Potassium 3.8 mmol/L (3.4-5.1); Sodium 139 mmol/L (137-145); Total Protein 7.6 g/dL (6.3-8.2)
[2019-05-30 12:12] LABS: Lactate (Lactic Acid) 2.9 mmol/L (0.7-2.1)
[2019-05-30 12:22] LABS: Troponin I < 0.012 ng/mL (0.01-0.034)
[2019-05-30 12:26] LABS: B Type Natriuretic Peptide < 100 (<100)
[2019-05-30 13:18] LABS: Procalcitonin 0.35 ng/mL (<0.5)
[2019-05-30] MEDS: ALBUTEROL 2.5 MG/3 ML NEB (ADULT) INH (13:41)
[2019-05-30 13:42] LABS: Reflexed Lactate in 2 Hours Y
[2019-05-30 14:28] LABS: Lactate 2HR (Lactic Acid Rflx) 1.8 mmol/L (0.7-2.1)
[2019-05-30 14:34] LABS: HCO3 ABG 34 mmol/L (22-26); PCO2 ABG 49.5 mmHg (35-45); PO2 ABG 58 mmHg (80-100); TCO2 ABG 35 mmol/L (21-31); pH ABG 7.44 (7.35-7.45)
[2019-05-30 14:35] LABS: Fractionated Inspired Oxygen 21; Oxygen Saturation ABG 90 % (95-100)
--- NOTE | 2019-05-30 14:41 | PC.NURSE ---
I spoke with RN at [facility] to discuss possibility of patient going home with O2. They report they are no longer a jail facility, they are now an assisted living and they would be unable to get O2 until Saturday. Staff informed of patient's admission because of this until O2 can be arranged at her [facility].
--- NOTE | 2019-05-30 15:00 | PC.NURSE ---
At this time Dr. Herrera requests set up for Home O2 so that patient does not need to be admitted. Process being initiated at this time by RT Mckeon.
--- NOTE | 2019-05-30 15:02 | PM.CN ---
History of Present Illness Consult details Date Patient Seen: 05/30/19 Time Patient Seen: 15:00 Chief complaint: Low O2 Reason for consult: Hypoxia Requesting provider: Harmony Layton Narrative: Elena Danielson is a 78 year old female with PMH of Obesity, afib, CAD, depression, chronic pain, DM, and LE venous stasis, [place] who presented for [facility] with low oxygen. Patient states that she does not feel short of breath. She denies chest pain, palpitations, cough, fever, chills, nausea, vomiting, abdominal pain, worsened lower extremity edema. She does not ambulate and cannot assess for dyspnea on exertion. In the emergency room her vital signs were notable for mild HTN, oxygen saturation of 87-88% on room air, responsive to 1L of oxygen supplementation. Upon my evaluation, patient was saturating between 94-96 % on room air when alert and talking. Other vital signs were unremarkable. She had a CTA which was negative for PE or other pulmonary pathologies. Lab studies showed a leukocytosis of 13.7, INR 1.4. ABG showing compensated respiratory acidosis with PCO2 of 49.6, pH 7.44, P02 of 58 and HCO3 of 34. Chemistry was only notable for Mg of 1.2 and glucose of 258. Procalcitonin 0.35. Meds Home Medications and Allergies Home Medications Medication Instructions Recorded Confirmed Type bisacodyl 10 mg W[place] PRN PRN #0 07/05/16 05/05/19 History hydroxyzine pamoate [Vistaril] 25 mg PO Q6HP PRN #0 07/05/16 05/05/19 History nitroglycerin [Nitrostat] 0.4 mg SUBLINGUAL PRN PRN #0 07/05/16 05/05/19 History diphenhydramine HCl [Benadryl 25 mg PO Q8HP PRN #0 04/08/17 05/05/19 History Allergy] ondansetron HCl 4 mg PO Q4HP PRN #0 04/08/17 05/05/19 History bisacodyl 5 - 10 mg PO PRN PRN 12/04/17 05/05/19 History nystatin 1 applic TOPICAL PRN PRN 12/04/17 05/05/19 History Fleet Enema 1 ea [place] PRN PRN 04/02/18 05/05/19 History magnesium hydroxide [Milk of 30 ml PO PRN PRN 04/02/18 05/05/19 History Magnesia] Myrbetriq 25 mg PO DAILY 04/03/18 05/05/19 History acetaminophen 650 mg PO Q4H PRN MDD 3 g 04/03/18 05/05/19 History aripiprazole 2.5 mg PO DAILY 04/03/18 05/05/19 History aspirin [Aspir-Low] 81 mg PO DAILY 04/03/18 05/05/19 History atorvastatin 40 mg PO BEDTIME 04/03/18 05/05/19 History bupropion HCl 100 mg PO BID 04/03/18 05/05/19 History diltiazem HCl 240 mg PO DAILY 04/03/18 05/05/19 History docusate sodium 200 mg PO BID 04/03/18 05/05/19 History duloxetine 60 mg PO DAILY 04/03/18 05/05/19 History lisinopril 10 mg PO BID 04/03/18 05/05/19 History mirtazapine 15 mg PO BEDTIME 04/03/18 05/05/19 History nortriptyline 25 mg PO BEDTIME 04/03/18 05/05/19 History pantoprazole 20 mg PO DAILY 04/03/18 05/05/19 History potassium chloride 10 meq PO DAILY 04/03/18 05/05/19 History acetaminophen 1,000 mg PO BID MDD 3 g 04/14/18 05/05/19 History levothyroxine 88 mcg PO DAILY 04/14/18 05/05/19 History oxycodone 10 mg PO Q6H PRN #20 tab 04/18/18 05/05/19 Rx oxycodone [OxyContin] 20 mg PO Q12H #30 tab 04/18/18 05/05/19 Rx Lantus U-100 Insulin 57 units SUBCUT BID 06/06/18 05/05/19 History furosemide 20 mg PO DAILY 06/06/18 05/05/19 History furosemide 40 mg PO DAILY PRN 06/06/18 05/05/19 History gabapentin 900 mg PO TID 06/06/18 05/05/19 History insulin lispro [Humalog U-100 See Rx Instructions .ROUTE .COMPLEX 06/06/18 05/05/19 History Insulin] melatonin 3 mg PO BEDTIME PRN 06/06/18 05/05/19 History multivitamin with minerals 1 cap PO DAILY 06/06/18 05/05/19 History polyethylene glycol 3350 17 g PO DAILY 06/06/18 05/05/19 History sennosides [senna] 17.2 mg PO BID 06/06/18 05/05/19 History oxycodone 10 mg PO Q6H PRN #40 tab 11/29/18 05/05/19 Rx oxycodone [OxyContin] 20 mg PO Q12H #40 tab 11/29/18 05/05/19 Rx Allergies Allergy/AdvReac Type Severity Reaction Status Date / Time adhesive [ADHESIVE] Allergy Mild ALLERGY TO Verified 05/05/19 12:59 TAPE Review of Systems Review of Systems Narrative: All other systems reviewed with the patient and are negative unless otherwise stated. Exam Vital Signs (past 8 hours): - 05/30/19 10:34 05/30/19 11:00 05/30/19 11:30 Temperature 98.8 F Pulse Rate 96 H 86 86 Respiratory Rate 27 H 28 H 32 H Blood Pressure 123/60 Blood Pressure [Left Arm] 113/61 126/62 Pulse Oximetry 88 L 87 L 87 L 05/30/19 11:35 05/30/19 12:00 05/30/19 13:00 Temperature Pulse Rate 82 77 Respiratory Rate 25 H 24 22 Blood Pressure Blood Pressure [Left Arm] 126/62 137/55 L Pulse Oximetry 95 93 93 05/30/19 13:42 05/30/19 14:04 Temperature Pulse Rate 70 73 Respiratory Rate 23 Blood Pressure Blood Pressure [Left Arm] 141/51 H Pulse Oximetry 97 92 Oxygen Delivery Method Room Air Oxygen Flow Rate 1 Narrative Exam Narrative: GENERAL APPEARANCE: Obese female, Well developed, well nourished, in no acute distress. SKIN: Inspection of the skin reveals bilateral venous stasis changes of her lower extremities, otherwise unremarkable. HEENT: The sclerae were anicteric and conjunctivae were pink and moist. Extraocular movements were intact and pupils were equal, round with normal accommodation. External inspection of the ears and nose showed no scars, lesions, or masses. Lips, teeth, and gums showed normal mucosa. The oral mucosa, hard and soft palate, tongue and posterior pharynx were unremarkable. NECK: Supple and symmetric. There was no thyroid enlargement, and no tenderness, or masses were felt. CHEST: Normal AP diameter and normal contour without any kyphoscoliosis. LUNGS: Auscultation of the lungs revealed no wheezes, rhonchi, or rales. She had poor effort and shallow respirations CARDIOVASCULAR: There was an irregularly irregular rhythm with normal rate without any murmurs, gallops, rubs. Peripheral pulses were 2+ and symmetric. ABDOMEN: Soft and nontender with normal bowel sounds. No ascites was noted. MUSCULOSKELETAL: There was no tenderness or effusions noted. Muscle strength and tone were normal. EXTREMITIES: No cyanosis, clubbing. there is chronic bilateral lower extremity edema that is non pitting. NEUROLOGIC: Alert and oriented x 3. Flat affect. Unable to ambulate. Objective ECG Impression: atrial fibrillation with controlled rate, no evidence of active ischemia. Imaging CT scan - chest: Radiologist's impression: Negative for pulmonary embolism. Labs Result Diagrams: 05/30/19 11:30 05/30/19 11:30 Labs: Laboratory Results - last 24 hr 05/30/19 05/30/19 05/30/19 11:30 11:30 11:30 WBC 13.7 H RBC 4.39 Hgb 13.7 Hct 41.4 MCV 94.4 MCH 31.2 MCHC 33.0 RDW 15.5 H Plt Count 221 Neut % (Auto) 62.8 Lymph % (Auto) 6.5 L [place] % (Auto) 30.0 H Eos % (Auto) 0.5 L Baso % (Auto) 0.2 Neut # (Auto) 8600 H Lymph # (Auto) 900 L [place] # (Auto) 4100 H Eos # (Auto) 100 Baso # (Auto) 0 PT 16.1 H INR 1.4 H APTT 37 H ABG pH ABG pCO2 ABG pO2 ABG HCO3 ABG Total CO2 ABG O2 Saturation ABG Base Excess FiO2 Sodium 139 Potassium 3.8 Chloride 96 L Carbon Dioxide 33 H BUN 13 Creatinine 0.90 Estimated GFR > 60.0 BUN/Creatinine Ratio 14.4 Glucose 258 H Lactate Calcium 8.8 Magnesium 1.2 L Total Bilirubin 0.8 AST 22 ALT 24 Alkaline Phosphatase 92 Total Creatine Kinase < 20 L CK-MB (CK-2) TNP CK-MB (CK-2) Rel Index TNP Troponin I < 0.012 B-Natriuretic Peptide < 100 Total Protein 7.6 Albumin 4.1 Globulin 3.5 Albumin/Globulin Ratio 1.2 Procalcitonin 05/30/19 05/30/19 05/30/19 11:30 11:30 14:09 WBC RBC Hgb Hct MCV MCH MCHC RDW Plt Count Neut % (Auto) Lymph % (Auto) [place] % (Auto) Eos % (Auto) Baso % (Auto) Neut # (Auto) Lymph # (Auto) [place] # (Auto) Eos # (Auto) Baso # (Auto) PT INR APTT ABG pH ABG pCO2 ABG pO2 ABG HCO3 ABG Total CO2 ABG O2 Saturation ABG Base Excess FiO2 Sodium Potassium Chloride Carbon Dioxide BUN Creatinine Estimated GFR BUN/Creatinine Ratio Glucose Lactate 2.9 H 1.8 Calcium Magnesium Total Bilirubin AST ALT Alkaline Phosphatase Total Creatine Kinase CK-MB (CK-2) CK-MB (CK-2) Rel Index Troponin I B-Natriuretic Peptide Total Protein Albumin Globulin Albumin/Globulin Ratio Procalcitonin 0.35 05/30/19 14:20 WBC RBC Hgb Hct MCV MCH MCHC RDW Plt Count Neut % (Auto) Lymph % (Auto) [place] % (Auto) Eos % (Auto) Baso % (Auto) Neut # (Auto) Lymph # (Auto) [place] # (Auto) Eos # (Auto) Baso # (Auto) PT INR APTT ABG pH 7.44 ABG pCO2 49.5 H ABG pO2 58 L ABG HCO3 34 H ABG Total CO2 35 H ABG O2 Saturation 90 L ABG Base Excess 9.0 H FiO2 21 Sodium Potassium Chloride Carbon Dioxide BUN Creatinine Estimated GFR BUN/Creatinine Ratio Glucose Lactate Calcium Magnesium Total Bilirubin AST ALT Alkaline Phosphatase Total Creatine Kinase CK-MB (CK-2) CK-MB (CK-2) Rel Index Troponin I B-Natriuretic Peptide Total Protein Albumin Globulin Albumin/Globulin Ratio Procalcitonin Assessment & Plan Assessment & Plan narrative: Elena Danielson is a 78 year old female with PMH of Obesity, afib, CAD, depression, chronic pain, DM, and LE venous stasis, [place] who presented for [facility] living with low oxygen. Her hypoxia is likely related to atelectasis. Based on her blood gas I suspect she has obesity hypoventilation syndrome. 1. acute hypoxemic respiratory failure in the setting of chronic hypercarbic respiratory failure - Patient is intermittently hypoxic and PO2 of 58 on abg and intermittently hypoxic on room air at 87% on room air. I suspect this is related to her obesity hypoventilation syndrome (this is evidenced by her compensated respiratory acidosis) or atelectasis. Her CTA was negative for PE and she is on anticoagulation for afib. There is no further evidence on CT imaging of pneumonia, decompensated heart failure. She needs outpatient pulmonary function testing and possibly an outpatient echocardiogram. She does not require an inpatient admission at this time. - will help to arrange oxygen with care management and respiratory therapy to go to [facility]. This should be intermittent and if patient is further hypoxic would recommend deep breaths by the patient prior to applying O2. Too much supplemental oxygen in this patient could result in worsening hypercarbia from a decreased ventilatory drive. Her goal O2 should be approximately 88-92% given her chronic hypercarbic respriatory failure. - recommend outpatient PFTs for further evaluation, these are unable to be performed as an inpatient. She should also have an outpatient echocardiogram if not done recently (none found in system here) Medicine will continue to assist in arranging intermittent supplemental O2.
[2019-05-30] MEDS: MAGNESIUM OXIDE 400 MG TABLET PO (15:50)
[2019-05-30] MEDS: FUROSEMIDE 40 MG/4 ML VIAL IV (15:50)
--- NOTE | 2019-05-30 16:59 | PC.NURSE ---
1515 Patient being asses by RT Mckeon for need for home O2. Patient's room air saturation via the ABG was 90% on RA which means she does not qualify for home O2. At this time patient's O2 saturation has been 92-95% on RA for an hour. I readjusted her up in bed and changed her depends with assistance from [employer]. I also spoke with her about her and her daughter about her depression since her 's . I encouraged to get up and sit in the wheelchair more in order to expand her lungs more. Also encouraged her to use an incentive spirometer.
== END 2019-05-30 16:40 | disposition home or self-care (01) ==
PROVIDERS: Emergency Provider Emergency Medicine
DX: R09.02 Hypoxemia (principal); I48.91 Unspecified atrial fibrillation
CPT/HCPCS: 36415; 36600; 71275; 80053; 82550; 82805; 83605; 83735; 83880; 84145; 84484; 85025; 85610; 85730; 87040; 93005; 94640; 96374; 99284; 99285; J1940; J7613

== ENCOUNTER → 2019-06-09 08:18 | Outpatient (ROUT) | payer MEDICARE, OTHER, MEDICAID, SELFPAY ==
[2018-11-26 18:05] VITALS: BMI 50.9
[2019-06-09 08:38] LABS: Add Manual Diff / Slide Review NO; Basophils Absolute Auto 0 /uL (0-100); Basophils Percent Auto 0.3 % (0-2); Eosinophils Absolute Auto 100 /uL (0-450); Eosinophils Percent Auto 1.4 % (2-4); Hematocrit 40.4 % (36-46); Hemoglobin 13.2 g/dL (12.0-16.0); Lymphocytes Absolute Auto 2300 /uL (1100-4500); Lymphocytes Percent Auto 26.4 % (25-40); Mean Corpuscular HGB Conc 32.6 % (30-36); Mean Corpuscular Hemoglobin 30.8 PG (26-34); Mean Corpuscular Volume 94.5 fL (80-100); Monocytes Absolute Auto 2500 /uL (0-900); Monocytes Percent Auto 28.7 % (3-14); Neutrophils Absolute Auto 3700 /uL (1500-7000); Neutrophils Percent Auto 43.2 % (50-75); Platelet Count 202 X10^3/uL (150-400); Red Blood Cell Count 4.28 X10^6/uL (4.0-5.2); Red Cell Distribution Width 15.5 % (11.6-14.8); White Blood Cell Count 8.6 X10^3/uL (4.5-11.0)
[2019-06-09 09:02] LABS: BUN Creatinine Ratio 17.5 (6-22); Blood Urea Nitrogen 14 mg/dL (7-17); Calcium 9.5 mg/dL (8.4-10.2); Carbon Dioxide 35 mmol/L (22-32); Chloride 97 mmol/L (98-107); Estimated Glomerular Filt Rate > 60.0 mL/min (>60); Glucose 205 mg/dL (80-110); HEMOLYSIS < 15 (0-50); Magnesium 1.7 mg/dL (1.6-2.3); Potassium 3.9 mmol/L (3.4-5.1); Sodium 140 mmol/L (137-145)
[2019-06-09 09:40] LABS: Thyroid Stimulating Hormone 7.65 uIU/mL (0.47-4.68)
== END ==
PROVIDERS: Visit Provider Nurse Practitioner Family
DX: E03.9 Hypothyroidism, unspecified (principal); R09.02 Hypoxemia; E83.42 Hypomagnesemia
CPT/HCPCS: 36415; 80048; 83735; 84443; 85025

== ENCOUNTER 2019-07-07 10:56 | Observation (INO) | payer MEDICARE, OTHER, MEDICAID, SELFPAY ==
[2018-11-26 18:05] VITALS: BMI 50.9
[2019-07-07] VITALS (9 sets, daily range): BP systolic 125–212; BP diastolic 60–103; PULSE 70–82; RESP 13–20; TEMP 36.6–37.7; O2SAT 92–97; BMI 51.9
--- NOTE | 2019-07-07 10:57 | DI.CT.S_ITS ---
PROCEDURE: CT STROKE COMPARISON: [facility], CT, CT HEAD/BRAIN WO CON, 03/15/2019, 9:32. INDICATIONS: code stroke TECHNIQUE: Noncontrast 4.5 mm thick angled axial sections acquired from the foramen magnum to the vertex, with coronal and sagittal reformats. For radiation dose reduction, the following was used: automated exposure control, adjustment of mA and/or kV according to patient size. FINDINGS: Image quality: Excellent. CSF spaces: Basal cisterns are patent. No extra-axial fluid collections. The ventricles are symmetric in size and shape. Brain: No intracranial bleeds or masses. There is stable appearance of moderate cerebral volume loss for age, with resultant ventricular and sulcal prominence. There are periventricular and deep white matter chronic small vessel ischemic changes. 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 There is minimal intracranial internal carotid artery atherosclerosis. Skull and face: Calvarium and visualized facial bones appear intact, without suspicious lesions. Sinuses: Visualized sinuses and mastoids are clear. IMPRESSION: CT head without acute intracranial abnormalities. Stable age-related senescent changes, sequelae of chronic small vessel ischemic disease and small remote right basal ganglial lacunar infarct. Findings were discussed with Dr. Gonzalez of the emergency department staff at 1123 hrs. Dictated by: Jay Vásquez M.D. on 07/07/2019 at 11:10 Approved by: Jay Vsáquez M.D. on 07/07/2019 at 11:28
--- NOTE | 2019-07-07 11:17 | ED_ITS ---
HPI - General Adult General Chief complaint: Neuro Symptoms/Deficit Stated complaint: Code Stroke Time Seen by Provider: 07/07/19 10:57 Source: patient and EMS Mode of arrival: EMS Limitations: no limitations History of Present Illness HPI narrative: Patient is a 78-year-old female. Has a history of atrial fibrillation. He is currently on anticoagulation. I have received a call from the medical driver [facility] that is reported to her that approximately 45 minutes prior to arrival here in the emergency department patient had what appeared to be acute onset of weakness. There was also reports of her slurring her words. She is an insulin- dependent diabetic. Upon arrival here in the emergency department patient was able to speak. She states that she feels ?dry ?she states that she also feels shaky. She stated that she did have problems speaking this morning. She also states she could lift the spoon to eat her breakfast. Related Data Home Medications Medication Instructions Recorded Confirmed nitroglycerin [Nitrostat] 0.4 mg SUBLINGUAL PRN PRN #0 07/05/16 07/07/19 ondansetron HCl 4 mg PO Q4HP PRN #0 04/08/17 07/07/19 nystatin 1 applic TOPICAL TID 12/04/17 07/07/19 Myrbetriq 25 mg PO DAILY 04/03/18 07/07/19 acetaminophen 650 mg PO Q4H PRN MDD 3 g 04/03/18 07/07/19 aripiprazole 2.5 mg PO DAILY 04/03/18 07/07/19 aspirin [Aspir-Low] 81 mg PO DAILY 04/03/18 07/07/19 atorvastatin 40 mg PO BEDTIME 04/03/18 07/07/19 bupropion HCl 100 mg PO BID 04/03/18 07/07/19 diltiazem HCl 240 mg PO DAILY 04/03/18 07/07/19 docusate sodium 200 mg PO BID 04/03/18 07/07/19 potassium chloride 10 meq PO DAILY 04/03/18 07/07/19 acetaminophen 1,000 mg PO BID MDD 3 g 04/14/18 07/07/19 Lantus U-100 Insulin 72 units SUBCUT BID 06/06/18 07/07/19 insulin lispro [Humalog U-100 See Rx Instructions .ROUTE .COMPLEX 06/06/18 07/07/19 Insulin] melatonin 3 mg PO BEDTIME PRN 06/06/18 07/07/19 multivitamin with minerals 1 cap PO DAILY 06/06/18 07/07/19 polyethylene glycol 3350 17 g PO DAILY PRN 06/06/18 07/07/19 sennosides [senna] 17.2 mg PO BID 06/06/18 07/07/19 apixaban [Eliquis] 5 mg PO BID 07/07/19 07/07/19 baclofen 10 mg PO [id number] 07/07/19 07/07/19 duloxetine 90 mg PO DAILY 07/07/19 07/07/19 furosemide 80 mg PO DAILY 07/07/19 07/07/19 gabapentin 1,000 mg PO TID 07/07/19 07/07/19 gabapentin 1,000 mg PO TID 07/07/19 07/07/19 hydrocodone bitartrate [Hysingla 40 mg PO QAM 07/07/19 07/07/19 ER] levothyroxine 100 mcg PO DAILY 07/07/19 07/07/19 lidocaine [Aspercreme (lidocaine)] 1 patch TOPICAL DAILY 07/07/19 07/07/19 lisinopril 20 mg PO BID 07/07/19 07/07/19 lorazepam 1 mg PO BEDTIME PRN 07/07/19 07/07/19 metformin 500 mg PO QAM 07/07/19 07/07/19 nystatin 1 applic TOPICAL BID 07/07/19 07/07/19 pantoprazole 40 mg PO DAILY 07/07/19 07/07/19 Previous Rx's Medication Instructions Recorded oxycodone 10 mg PO Q6H PRN #40 tab 11/29/18 Allergies Allergy/AdvReac Type Severity Reaction Status Date / Time adhesive [ADHESIVE] Allergy Mild ALLERGY TO Verified 07/07/19 11:12 TAPE Review of Systems Constitutional Constitutional: Denies fever(s), Reports headache(s) (Behind her ears) and Reports malaise Eyes Eyes: Denies change in vision ENT Ears, Nose, Mouth, and Throat: Denies dizziness, Reports headache(s) (Behind her ears) and Reports disequilibrium Cardiovascular Cardiovascular: Denies chest pain, Denies palpitations and Denies dyspnea Respiratory Respiratory: Denies dyspnea Gastrointestinal Gastrointestinal: Denies abdominal pain, Denies nausea and Denies vomiting Musculoskeletal Musculoskeletal: Reports muscle weakness Integumentary/Breasts Skin/Breast: Denies lesions and Denies rash Neurologic Neurologic: Reports abnormal speech, Reports behavioral changes, Reports confusi on, Denies dizziness, Reports headache(s) (Behind her ears), Reports focal weakness and Reports disequilibrium Psychiatric Psychiatric: Reports behavioral changes and Reports confusion Endocrine Endocrine: Denies palpitations Hematologic/Lymphatic Comments: On anticoagulation Patient History Medical History Anemia (Chronic) Atherosclerotic heart disease of [place] coronary artery without angina pectoris (Chronic) Atrial fibrillation (Chronic) Chronic kidney disease, stage 3 (Chronic) Chronic pain syndrome (Chronic) Diabetes (Chronic) Gastroesophageal reflux disease (Chronic) Hereditary and idiopathic neuropathy, unspecified (Chronic) Hyperlipidemia (Chronic) Hypertension (Chronic) Hypertensive chronic kidney disease with stage 1 through stage 4 chronic kidney disease, or unspecified chronic kidney disease (Chronic) Hypothyroidism (Chronic) 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 (Chronic) 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) Major depressive disorder (Chronic) Obesity (Chronic) Obstructive sleep apnea (Chronic) Urinary incontinence (Chronic) Venous insufficiency (chronic) (peripheral) (Chronic) Wheelchair bound (Chronic) Social History household members: caregiver Smoking Status: Former smoker alcohol intake: never Smoking Status: Former smoker alcohol intake frequency: 0-2 drinks per day Substance Use Type: does not use Exam Initial Vital Signs Initial Vital Signs: Vital Signs Pulse Rate 82 07/07/19 10:55 Respiratory Rate 14 07/07/19 10:55 Blood Pressure 152/103 H 07/07/19 10:55 Pulse Oximetry 92 07/07/19 10:55 Const General: cooperative and comfortable Limitations: mental status not altered HENMT Head: normal to inspection and normocephalic Eyes Pupils: PERRL Resp Effort & Inspection: normal respiratory effort Auscultation: clear to auscultation bilaterally Cardio Rate: regular rate Rhythm: regular rhythm GI Inspection: non-distended Palpation: soft Skin Lesions: no lesions Rashes: no rashes Other: Diaphoretic Neuro General: alert, awake and oriented x3 Speech: speech normal Extrem General: capillary refill normal Psych Appearance: grossly normal Scores GCS Martin coma scale eye opening: To sound Martin coma scale verbal response: Orientated Martin coma scale motor response: Obey commands Martin coma scale total score: 14 NIH Stroke Scale Level of Conciousness: Alert, keenly responsive Ask month/age: Answers both questions correctly. Open/close eyes, close hand: Performs both tasks correctly Best gaze horizontal: Normal Visual sims: No visual loss Facial palsy: Normal symetrical movement Left arm drift: No effort against gravity Right arm drift: No effort against gravity Left leg drift: No effort against gravity Right leg drift: No effort against gravity Limb ataxia: Present in two limbs Sensory on face/arms/legs: Normal, no sensory loss Best language: No aphasia, normal Dysarthria: Normal Extinction or inattention: No abnormality Total NIH Stroke scale score: 14 Course Orders Ordered: ED Orders 07/07/19 10:57 CT Stroke Stat 07/07/19 10:59 Urine Drug Screen, Rapid Stat EKG-12 Lead Stat 07/07/19 11:10 Complete Blood Count AUTO DIFF Stat Comprehensive Metabolic Panel Stat Ethanol (ETOH) Stat Lipase Stat Partial Thromboplastin Time Stat Prothrombin Time INR Stat Troponin I Stat 07/07/19 11:15 Ammonia (NH3) Stat Blood Culture Stat 07/07/19 12:21 CT angio head and neck Stat Sodium Chloride (Normal Saline 0.9%) 1,000 mls @ 125 mls/hr IV CONT LUPILLO Last Infusion: 07/07/19 14:44 Dose: 125 mls/hr Documented by: Admin: 07/07/19 11:33 Dose: 125 mls/hr Documented by: ASIF Vital Signs Vital signs: Vital Signs - 8 hr 07/07/19 10:55 07/07/19 11:19 07/07/19 12:19 Temperature Pulse Rate 82 79 78 Respiratory Rate 14 13 16 Blood Pressure 152/103 H Blood Pressure [`] 212/87 H 133/60 Pulse Oximetry 92 94 07/07/19 12:25 Temperature 98.3 F Pulse Rate Respiratory Rate Blood Pressure Blood Pressure [`] Pulse Oximetry Medical Decision Making Lab Data Lab results reviewed: Yes I reviewed the patient's lab results. Result diagrams: 07/07/19 11:10 07/07/19 11:10 Labs: Lab Results 07/07/19 07/07/19 07/07/19 Range/Units 11:10 11:10 11:10 WBC 9.6 (4.5-11.0) X10^3/uL RBC 4.42 (4.0-5.2) X10^6/uL Hgb 13.8 (12.0-16.0) g/dL Hct 42.1 (36-46) % MCV 95.2 (80-100) fL MCH 31.2 (26-34) PG MCHC 32.8 (30-36) % RDW 15.1 H (11.6-14.8) % Plt Count 204 (150-400) X10^3/uL Neut % (Auto) 56.9 (50-75) % Lymph % (Auto) 18.6 L (25-40) % [place] % (Auto) 23.2 H (3-14) % Eos % (Auto) 0.6 L (2-4) % Baso % (Auto) 0.7 (0-2) % Neut # (Auto) 5500 (4946-2484) /uL Lymph # (Auto) 1800 (1865-0965) /uL [place] # (Auto) 2200 H (0-900) /uL Eos # (Auto) 100 (0-450) /uL Baso # (Auto) 100 (0-100) /uL PT 17.8 H (10.1-12.7) SECONDS INR 1.5 H (0.9-1.3) APTT 39 H D (26.4-36.2) SECONDS Sodium 140 (137-145) mmol/L Potassium 4.3 (3.4-5.1) mmol/L Chloride 98 (98-107) mmol/L Carbon Dioxide 30 (22-32) mmol/L BUN 35 H (7-17) mg/dL Creatinine 1.40 H (0.52-1.04) mg/dL Estimated GFR 36.5 L (>60) mL/min BUN/Creatinine Ratio 25.0 H (6-22) Glucose 225 H (80-110) mg/dL Calcium 9.4 (8.4-10.2) mg/dL Total Bilirubin 0.6 (0.2-1.3) mg/dL AST 32 (14-36) IU/L ALT 26 (<35) IU/L Alkaline Phosphatase 84 (38-126) U/L Ammonia (9-30) umol/L Troponin I (0.01-0.034) ng/mL Total Protein 8.1 (6.3-8.2) g/dL Albumin 4.2 (3.5-5.0) g/dL Globulin 3.9 (1.7-4.1) g/dL Albumin/Globulin Ratio 1.1 (1.0-2.8) Lipase 40 (23-300) U/L Ethyl Alcohol < 10 ( - 10) mg/dL 07/07/19 07/07/19 Range/Units 11:10 11:15 WBC (4.5-11.0) X10^3/uL RBC (4.0-5.2) X10^6/uL Hgb (12.0-16.0) g/dL Hct (36-46) % MCV (80-100) fL MCH (26-34) PG MCHC (30-36) % RDW (11.6-14.8) % Plt Count (150-400) X10^3/uL Neut % (Auto) (50-75) % Lymph % (Auto) (25-40) % [place] % (Auto) (3-14) % Eos % (Auto) (2-4) % Baso % (Auto) (0-2) % Neut # (Auto) (7909-1025) /uL Lymph # (Auto) (1588-2697) /uL [place] # (Auto) (0-900) /uL Eos # (Auto) (0-450) /uL Baso # (Auto) (0-100) /uL PT (10.1-12.7) SECONDS INR (0.9-1.3) APTT (26.4-36.2) SECONDS Sodium (137-145) mmol/L Potassium (3.4-5.1) mmol/L Chloride (98-107) mmol/L Carbon Dioxide (22-32) mmol/L BUN (7-17) mg/dL Creatinine (0.52-1.04) mg/dL Estimated GFR (>60) mL/min BUN/Creatinine Ratio (6-22) Glucose (80-110) mg/dL Calcium (8.4-10.2) mg/dL Total Bilirubin (0.2-1.3) mg/dL AST (14-36) IU/L ALT (<35) IU/L Alkaline Phosphatase (38-126) U/L Ammonia < 9 L (9-30) umol/L Troponin I < 0.012 (0.01-0.034) ng/mL Total Protein (6.3-8.2) g/dL Albumin (3.5-5.0) g/dL Globulin (1.7-4.1) g/dL Albumin/Globulin Ratio (1.0-2.8) Lipase (23-300) U/L Ethyl Alcohol ( - 10) mg/dL Point of Care Testing Glucose POC 217 Point of care testing: Point of Care Testing Glucose POC [address] scan - head: Radiologist's Impression: [address] [address] XRay Report Signed Patient: Shelbie Shepherd LMR#: [id number] : 12/29/1971Acct:[id number] Age/Sex: 47 / FDate of Service: 07/07/19 Loc: ED Accession Number: [id number] Procedure: XR chest 1V Ordering Provider: Gilson Gonzalez D.O. PROCEDURE: XR CHEST 1V INDICATIONS: chest pain TECHNIQUE: One view of the chest was acquired. COMPARISON: None. FINDINGS: Surgical changes and devices: None. Lungs and pleura: Lungs are clear. No pleural effusions or pneumothorax. Mediastinum: Mediastinal contours appear normal. Heart size is normal. Bones and chest wall: No suspicious bony lesions. Overlying soft tissues appear unremarkable. IMPRESSION: No acute process. Dictated by: Abelino Lutz M.D. on 07/07/2019 at 11:07 Approved by: Abelino Lutz M.D. on 07/07/2019 at 11:08 CTA - brain/neck: Radiologist's Impression: [address] [address] [address] Scan Report Signed Patient: Elena Danielson RMR#: [id number] : [id number]:[id number] Age/Sex: 78 / FDate of Service: 07/07/19 Loc: ED Accession Number: [id number] Procedure: CT angio head and neck Ordering Provider: Gilson oGnzalez D.O. PROCEDURE: CT ANGIO HEAD AND NECK INDICATIONS: Code Stroke TECHNIQUE: Noncontrast images were performed earlier in the day and not repeated. After the administration of intravenous contrast, 1 mm thick sections acquired from the aortic arch through the [place]. Post-contrast 4.5 mm thick sections then re- acquired from the foramen magnum to the vertex. 3-dimensional zbexjto-qcaukjznn-cgujrrzjst (MIP) and/or volume rendering reformats were acquired of the central intracranial vasculature and neck separately. COMPARISON: [facility], CT, CT HEAD/BRAIN WO CON, 04/02/2018, 11:10. [facility], CT, CT HEAD/BRAIN WO CON, 03/15/2019, 9:32. [facility], CT, CT STROKE, 07/07/2019, 10:54. FINDINGS: Image quality: Excellent. BRAIN: CSF spaces: Ventricles are normal in size and shape. Basal cisterns are patent. No extra-axial fluid collections. Brain: No midline shift. No intracranial bleeds or masses. Arce-white matter interface appears intact. Skull and face: Calvarium and facial bones appear intact, without suspicious lesions. Orbits appear normal. Sinuses: Mucosal thickening is seen within the white air cells. Sinuses and mastoids are otherwise clear. HEAD CT ANGIOGRAPHY: Anterior circulation: Intracranial internal carotid arteries are normal in size and flow. The flow within the paired anterior cerebral arteries is normal and symmetric. The flow within the middle cerebral arteries is normal and symmetric. The anterior communicating artery is seen. No aneurysms are seen. Posterior circulation: Visualized portions of the vertebral arteries demonstrate normal caliber, and join to form a normal appearing basilar artery. Flow within the posterior cerebral arteries is normal and symmetric. No aneurysms are seen. NECK CT ANGIOGRAPHY: Carotid system: The great vessels demonstrate a conventional anatomy as they arise from the aortic arch. The origins of the common carotid arteries appear patent. The common carotid arteries demonstrate normal caliber and courses. The bifurcation regions demonstrate atherosclerotic irregularity. No hemodynamically significant stenosis is seen. Posterior circulation: The origins of the vertebral arteries both appear widely patent. The more superior extracranial portions of both vertebral arteries also demonstrate normal courses and calibers. They join to form a normal appearing basilar artery. Soft tissues: Visualized neck soft tissues demonstrate no suspicious abnormalities. Bones: No suspicious bony lesions. Visualized cervical spine appears normally aligned. Prominent lower cervical spine degenerative changes are seen IMPRESSION: No significant intracranial arterial abnormality can be seen. No significant intracranial abnormality is detected on the postcontrast images. Within the arteries of the neck, no hemodynamically significant stenosis can be seen. Prominent lower cervical spine degenerative changes can be seen. If it would be helpful for clinical management decision making, please consider a dedicated brain MRI for further evaluation (assuming that there is no contrain dication). Any quantitative measurements of stenosis were performed using NASCET criteria. Dictated by: Mike Reid M.D. on 07/07/2019 at 11:37 Approved by: Mike Reid M.D. on 07/07/2019 at 11:43 ECG Data Attestation: I personally reviewed and interpreted this ECG as follows: Prior ECG tracings: not available for review Interpretation: Atrial fibrillation Ventricular rate is 77 Normal axis Normal QRS Normal QTC No ST T wave changes MDM Narrative Medical decision making narrative: Patient's daughters arrived and stated that her lower extremity findings are not new. She normally has weakness in her lower extremities. They also stated that she has quite a bit of fine motor coordination issues with the upper extremities however the fact that she could barely lift her upper extremities upon arrival seems to be new symptoms. She is speaking without any issues. She states that just in general she does not feel well. Her head CT and CT of the head neck show no acute issues. Given her history of anticoagulation patient is not a candidate for tPA. Is not a cand idate for Code IR given the findings on the CTA. While patient was in the room a her daughter yesi robledo stated that she seemed to be having more problems finding her words. When I walked into the room her heart rate was in the 130s to 150s. His AFib. She has chronic AFib that is why she is on the anticoagulation. Her heart rate then decreased to the 70s. She seemed to not have any problems speaking during my evaluation at that time. Some concern about whether not her symptoms related to potentially not being rate controlled with her AFib. I did discuss the case with Stroke Neurology at [facility] who stated that admission for an MRI and potentially a echocardiogram and physical therapy is not unreasonable given her clinical presentation. I did discuss the case with Dr. hernandez who will accept the patient. I discussed admission with the patient and the family. They all expressed understanding and agreement. Discharge Plan Departure Patient Disposition: Admitted as Observation Clinical Impression: TIA (transient ischemic attack), Upper limb weakness Atrial fibrillation Qualifiers: Atrial fibrillation type: unspecified Qualified Code(s): I48.91 - Unspecified atrial fibrillation Discharge Date/Time: 07/07/19 14:44 Admit Date/Time: 07/07/19 13:55 Admit Provider: Brooke Hernandez
[2019-07-07 11:19] LABS: Add Manual Diff / Slide Review NO; Basophils Absolute Auto 100 /uL (0-100); Basophils Percent Auto 0.7 % (0-2); Eosinophils Absolute Auto 100 /uL (0-450); Eosinophils Percent Auto 0.6 % (2-4); Hematocrit 42.1 % (36-46); Hemoglobin 13.8 g/dL (12.0-16.0); Lymphocytes Absolute Auto 1800 /uL (1100-4500); Lymphocytes Percent Auto 18.6 % (25-40); Mean Corpuscular HGB Conc 32.8 % (30-36); Mean Corpuscular Hemoglobin 31.2 PG (26-34); Mean Corpuscular Volume 95.2 fL (80-100); Monocytes Absolute Auto 2200 /uL (0-900); Monocytes Percent Auto 23.2 % (3-14); Neutrophils Absolute Auto 5500 /uL (1500-7000); Neutrophils Percent Auto 56.9 % (50-75); Platelet Count 204 X10^3/uL (150-400); Red Blood Cell Count 4.42 X10^6/uL (4.0-5.2); Red Cell Distribution Width 15.1 % (11.6-14.8); White Blood Cell Count 9.6 X10^3/uL (4.5-11.0)
[2019-07-07 11:26] LABS: INR 1.5 (0.9-1.3); Prothrombin Time 17.8 SECONDS (10.1-12.7)
[2019-07-07 11:29] LABS: PTT Partial Thromboplastin Tim 39 SECONDS (26.4-36.2)
[2019-07-07 11:33] LABS: Alanine Aminotransferase 26 IU/L (<35); Albumin 4.2 g/dL (3.5-5.0); Albumin Globulin Ratio 1.1 (1.0-2.8); Alkaline Phosphatase 84 U/L (38-126); Aspartate Aminotransferase 32 IU/L (14-36); Bilirubin Total 0.6 mg/dL (0.2-1.3); Blood Urea Nitrogen 35 mg/dL (7-17); Calcium 9.4 mg/dL (8.4-10.2); Carbon Dioxide 30 mmol/L (22-32); Chloride 98 mmol/L (98-107); Estimated Glomerular Filt Rate 36.5 mL/min (>60); Ethanol (ETOH) < 10 mg/dL; Globulin 3.9 g/dL (1.7-4.1); Glucose 225 mg/dL (80-110); HEMOLYSIS < 15 (0-50); Lipase 40 U/L (23-300); Potassium 4.3 mmol/L (3.4-5.1); Sodium 140 mmol/L (137-145); Total Protein 8.1 g/dL (6.3-8.2)
[2019-07-07] MEDS: SODIUM CHLORIDE 0.9% 1,000 ML 125 ML IV (11:33)
[2019-07-07 11:38] LABS: Ammonia (NH3) < 9 umol/L (9-30)
[2019-07-07 11:44] LABS: Troponin I < 0.012 ng/mL (0.01-0.034)
--- NOTE | 2019-07-07 12:21 | DI.CT.S_ITS ---
PROCEDURE: CT ANGIO HEAD AND NECK INDICATIONS: Code Stroke TECHNIQUE: Noncontrast images were performed earlier in the day and not repeated. After the administration of intravenous contrast, 1 mm thick sections acquired from the aortic arch through the [place] of [place]. Post-contrast 4.5 mm thick sections then re-acquired from the foramen magnum to the vertex. 3-dimensional kavhrch-hjxrrzoqk-rbcjelihgx (MIP) and/or volume rendering reformats were acquired of the central intracranial vasculature and neck separately. COMPARISON: [facility], CT, CT HEAD/BRAIN WO CON, 04/02/2018, 11:10. [facility], CT, CT HEAD/BRAIN WO CON, 03/15/2019, 9:32. [facility], CT, CT STROKE, 07/07/2019, 10:54. FINDINGS: Image quality: Excellent. BRAIN: CSF spaces: Ventricles are normal in size and shape. Basal cisterns are patent. No extra-axial fluid collections. Brain: No midline shift. No intracranial bleeds or masses. Arce-white matter interface appears intact. Skull and face: Calvarium and facial bones appear intact, without suspicious lesions. Orbits appear normal. Sinuses: Mucosal thickening is seen within the white air cells. Sinuses and mastoids are otherwise clear. HEAD CT ANGIOGRAPHY: Anterior circulation: Intracranial internal carotid arteries are normal in size and flow. The flow within the paired anterior cerebral arteries is normal and symmetric. The flow within the middle cerebral arteries is normal and symmetric. The anterior communicating artery is seen. No aneurysms are seen. Posterior circulation: Visualized portions of the vertebral arteries demonstrate normal caliber, and join to form a normal appearing basilar artery. Flow within the posterior cerebral arteries is normal and symmetric. No aneurysms are seen. NECK CT ANGIOGRAPHY: Carotid system: The great vessels demonstrate a conventional anatomy as they arise from the aortic arch. The origins of the common carotid arteries appear patent. The common carotid arteries demonstrate normal caliber and courses. The bifurcation regions demonstrate atherosclerotic irregularity. No hemodynamically significant stenosis is seen. Posterior circulation: The origins of the vertebral arteries both appear widely patent. The more superior extracranial portions of both vertebral arteries also demonstrate normal courses and calibers. They join to form a normal appearing basilar artery. Soft tissues: Visualized neck soft tissues demonstrate no suspicious abnormalities. Bones: No suspicious bony lesions. Visualized cervical spine appears normally aligned. Prominent lower cervical spine degenerative changes are seen IMPRESSION: No significant intracranial arterial abnormality can be seen. No significant intracranial abnormality is detected on the postcontrast images. Within the arteries of the neck, no hemodynamically significant stenosis can be seen. Prominent lower cervical spine degenerative changes can be seen. If it would be helpful for clinical management decision making, please consider a dedicated brain MRI for further evaluation (assuming that there is no contraindication). Any quantitative measurements of stenosis were performed using NASCET criteria. Dictated by: Mike Reid M.D. on 07/07/2019 at 11:37 Approved by: Mike Reid M.D. on 07/07/2019 at 11:43
--- NOTE | 2019-07-07 18:52 | DI.ECHO.S_ITS ---
[facility] +---------+ : : [address] : [address] [place] : : : : [id number] : : : : Phone: [phone] Echocardiogram Report + + :Name: AUTUMN BEY Study Date: 07/08/2019 Height: 69 in : :[facility] Weight: 351 lb : : Gender: Female BSA: 2.6 m2 : :: 1940 Age: 78 yrs BP: 141/82 mmHg: :Reason For Study: R/O EMBOLIC FOCUS : :Ordering Physician: Easu : :Hospitalist Performed By: Darcy Conway : :Referring: HIEU BRADLEY : + + Interpretation Summary Left ventricular systolic function is probably normal with the ejection fraction grossly estimated to be 55-65% with considerable [id number] variability due to atrial fibrillation and grossly appears slightly less dynamic compared to the previous study. There are no obvious focal wall motion abnormalities noted but poor endocardial definition reduces the sensitivity for the detection of such. Left ventricular wall thickness is borderline increased. The right ventricle is not well visualized but grossly appears to be mild to moderately dilated with systolic function that is likely at the lower limits of normal and appears slightly larger compared to the previous study. Pulmonary artery pressures cannot be estimated because of the lack of a measurable TR jet velocity. The left atrium is moderately dilated but is unchanged compared to the previous study. There is no obvious significant valvular heart disease. The ascending aorta is at the upper limits of normal in size and measures smaller compared to the previous study. The patient was in atrial fibrillation with heart rates between 75-85 bpm which is considerably slower compared to the previous study. Procedure: A two-dimensional transthoracic echocardiogram with color flow and Doppler was performed. Comparison is made with the echocardiogram of 03/09/2016. The study quality was technically difficult. A contrast injection of Definity was performed to improve assessment of LV function. Patient scanned in the supine position throughout exam. The subcostal views were difficult to obtain and are suboptimal in quality. The suprasternal notch views were difficult to obtain and are suboptimal in quality. The patient was in atrial fibrillation with heart rates between 75-85 bpm during the exam. This is considerably slower compared to the previous study. Left Ventricle: The left ventricle is normal in size. Left ventricular wall thickness is borderline increased. Left ventricular systolic function is probably normal. Left ventricular ejection fraction is estimated to be grossly 55-65% with considerable [id number] variability due to atrial fibrillation. There are no obvious focal wall motion abnormalities noted but poor endocardial definition reduces the sensitivity for the detection of such. This is slightly less dynamic compared to the previous study. Diastolic function could not be accurately assessed due to contradictory data. Right Ventricle: The right ventricle is not well visualized. The right ventricle is mild to moderately dilated. Right ventricular systolic function is at the lower limits of normal. This is slightly larger compared to the previous study. Atria: The left atrium is moderately dilated. This is unchanged compared to the previous study. Right atrium not well visualized secondary to technical limitations. Mitral Valve: There is moderate mitral annular calcification. The mitral valve leaflets appear mildly thickened, but open well. There is trace mitral regurgitation. Aortic Valve: The aortic valve is not well visualized but appears to be trileaflet and open well. There is no aortic valve stenosis. No aortic regurgitation is present. Tricuspid Valve: The tricuspid valve is not well visualized. The tricuspid valve is not well visualized, but is grossly normal. There is a trace or physiologic amount of tricuspid regurgitation. Pulmonary artery pressures cannot be estimated because of the lack of a measurable TR jet velocity. Pulmonic Valve: The pulmonic valve is not well visualized. There is no pulmonic valvular regurgitation. There is no significant valvular heart disease. Great Vessels: The aortic root is normal size. The ascending aorta is at the upper limits of normal in size. Current ascending aorta measurement is 3.4 cm compared to 3.9 cm on 03/09/2016 exam. The inferior vena cava was not visualized. Pericardium/ Pleura There is no pericardial effusion. There is an anterior echo-free space consistent with a fat pad. MMode/2D Measurements & Calculations LVIDd: 4.6 cm LVOT diam: 2.4 cm LVIDs: 3.0 cm Ao root diam: 3.5 cm FS: 36.0 % asc Aorta Diam: 3.4 cm EPSS: 0.24 cm IVSd: 1.1 cm LVPWd: 1.4 cm LV cerrato. diameter/BSA (cm/m^2): 1.8 LV sys. diameter/BSA (cm/m^2): 1.1 LA A2 area: 33.0 cm2 TAPSE: 2.0 cm LA A4 area: 32.1 cm2 LA length (vol): 7.2 cm LA vol: 125.9 ml LA vol index: 48.0 ml/m2 Doppler Measurements & Calculations Ao V2 max: 123.2 cm/sec LVOT Max Antony: 97.0 cm/sec Ao V2 mean: 82.6 cm/sec LV V1 max P.8 mmHg Ao max P.1 mmHg LV V1 VTI: 20.6 cm Ao mean P.1 mmHg JAMSHID(I,D): 3.4 cm2 Ao V2 VTI: 26.6 cm JAMSHID(V,D): 3.5 cm2 sev ratio: 0.78 JAMSHID indexed to BSA (cm^2/m^2): 1.3 MV E max antony: 119.0 cm/sec PA V2 max: 83.6 cm/sec Med Peak E' Antony: 10.4 cm/sec PA Accel Time: 0.09 sec E/E' med: 11.4 Lat Peak E' Antony: 11.3 cm/sec E/E' lat: 10.6 E/e' average: 11.0 MV dec time: 0.18 sec MV P1/2t: 59.9 msec MVA(VTI): 3.3 cm2 MV V2 mean: 70.3 cm/sec MV P1/2t max antony: 109.8 cm/sec MV mean P.4 mmHg MVA(P1/2t): 3.7 cm2 MV V2 VTI: 27.5 cm SV(LVOT): 90.4 ml Reading Physician:PM
--- NOTE | 2019-07-07 19:13 | P.HP_ITS ---
History of Present Illness History of Present Illness Date Patient Seen: 07/07/19 Chief complaint: Code Stroke Narrative: The patient is a 78-year-old female with a history of atrial fibrill ation on apixaban, chronic kidney disease, type 2 diabetes, GERD, hypertension hyperlipidemia who lives at [facility]. 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 She was noted to be weaker on the left than the right. She had difficulty with speech and reported facial droop. The patient was brought into the emergency room for evaluation. She continued to have left hand weakness. Her facial droop improved. Her speech was interpreted to be normal. Patient had a head CT which was unremarkable. She had a CT a of her neck. There was no carotid disease. Consult with [facility] neurology suggested that the patient be admitted to the hospital for MRI and further workup. The patient denies any headache. She does report some blurred vision med improves when wearing her glasses. She has had no drooling. She has had no tonic-clonic activity. She does report that she was short of breath in the emergency room and placed on oxygen. Patient had a NIH stroke scale and had a score of +1. She is chronically bed-bound and does not ambulate. Her lower extremity exam was unable to be evaluated. Patient continues to report left hand numbness and is admitted to the hospital at this time for further evaluation of TIA versus stroke. 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) Major depressive disorder (Chronic) Obesity (Chronic) Obstructive sleep apnea (Chronic) Urinary incontinence (Chronic) Venous insufficiency (chronic) (peripheral) (Chronic) Wheelchair bound (Chronic) Surgical History History of bilateral knee replacement (Resolved) Family & Social History Family History (Updated 07/07/19 @ 19:19 by Brooke Hernandez MD) Father Stroke Mother Cancer Other Family history non-contributory Social History: household members caregiver Prior Living Arrangements 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 Facility Safety & Behavioral: Feels Safe in Current Unwilling to Answer Environment Been Physically Hurt or Unwilling to Answer Threatened By a Person Suicidal Ideation Description None Suicide Plan Description No Plan Tobacco & Substance use: Tobacco type cigars Smoking Status Former smoker alcohol intake former alcohol intake frequency 0-2 drinks per day Substance Use Type does not use Meds Home Medications and Allergies Home Medications Medication Instructions Recorded Confirmed Type nitroglycerin [Nitrostat] 0.4 mg SUBLINGUAL PRN PRN #0 07/05/16 07/07/19 History ondansetron HCl 4 mg PO Q4HP PRN #0 04/08/17 07/07/19 History nystatin 1 applic TOPICAL TID 12/04/17 07/07/19 History Myrbetriq 25 mg PO DAILY 04/03/18 07/07/19 History acetaminophen 650 mg PO Q4H PRN MDD 3 g 04/03/18 07/07/19 History aripiprazole 2.5 mg PO DAILY 04/03/18 07/07/19 History aspirin [Aspir-Low] 81 mg PO DAILY 04/03/18 07/07/19 History atorvastatin 40 mg PO BEDTIME 04/03/18 07/07/19 History bupropion HCl 100 mg PO BID 04/03/18 07/07/19 History diltiazem HCl 240 mg PO DAILY 04/03/18 07/07/19 History docusate sodium 200 mg PO BID 04/03/18 07/07/19 History potassium chloride 10 meq PO DAILY 04/03/18 07/07/19 History acetaminophen 1,000 mg PO BID MDD 3 g 04/14/18 07/07/19 History Lantus U-100 Insulin 72 units SUBCUT BID 06/06/18 07/07/19 History insulin lispro [Humalog U-100 See Rx Instructions .ROUTE .COMPLEX 06/06/18 07/07/19 History Insulin] melatonin 3 mg PO BEDTIME PRN 06/06/18 07/07/19 History multivitamin with minerals 1 cap PO DAILY 06/06/18 07/07/19 History polyethylene glycol 3350 17 g PO DAILY PRN 06/06/18 07/07/19 History sennosides [senna] 17.2 mg PO BID 06/06/18 07/07/19 History oxycodone 10 mg PO Q6H PRN #40 tab 11/29/18 07/07/19 Rx apixaban [Eliquis] 5 mg PO BID 07/07/19 07/07/19 History baclofen 10 mg PO [id number] 07/07/19 07/07/19 History duloxetine 90 mg PO DAILY 07/07/19 07/07/19 History furosemide 80 mg PO DAILY 07/07/19 07/07/19 History gabapentin 1,000 mg PO TID 07/07/19 07/07/19 History gabapentin 1,000 mg PO TID 07/07/19 07/07/19 History hydrocodone bitartrate [Hysingla 40 mg PO QAM 07/07/19 07/07/19 History ER] levothyroxine 100 mcg PO DAILY 07/07/19 07/07/19 History lidocaine [Aspercreme (lidocaine)] 1 patch TOPICAL DAILY 07/07/19 07/07/19 History lisinopril 20 mg PO BID 07/07/19 07/07/19 History lorazepam 1 mg PO BEDTIME PRN 07/07/19 07/07/19 History metformin 500 mg PO QAM 07/07/19 07/07/19 History nystatin 1 applic TOPICAL BID 07/07/19 07/07/19 History pantoprazole 40 mg PO DAILY 07/07/19 07/07/19 History Allergies Allergy/AdvReac Type Severity Reaction Status Date / Time adhesive [ADHESIVE] Allergy Mild ALLERGY TO Verified 07/07/19 11:12 TAPE Review of Systems Review of Systems ROS: Yes All systems reviewed with the patient and are negative except as otherwise documented Exam Vital Signs (past 8 hours): - 07/07/19 11:19 07/07/19 12:19 07/07/19 12:25 Temperature 98.3 F Pulse Rate 79 78 Respiratory Rate 13 16 Blood Pressure Blood Pressure [`] 212/87 H 133/60 Pulse Oximetry 94 07/07/19 14:08 07/07/19 15:22 Temperature 97.9 F Pulse Rate 75 70 Respiratory Rate 20 14 Blood Pressure 130/63 Blood Pressure [`] 133/60 Pulse Oximetry 95 95 Oxygen Delivery Method Room Air Oxygen Flow Rate 2 Narrative Exam Narrative: Pleasant female tearful HEENT: Normocephalic atraumatic, extraocular muscles are intact, there is no facial asymmetry, tongue is midline speech is clear Neck is supple: No adenopathy or thyromegaly Lungs reveal decreased breath sounds bilaterally Cardiac exam: Irregularly irregular, normal S1-S2, 2/6 systolic ejection murmur Abdomen obese soft nontender nondistended without appreciable hepatosplenomegaly Lower extremities: 1 to 2+ edema bilaterally Skin lower extremities reveal chronic venous stasis changes, well-healed left inner thigh scar noted Neuro exam NIH stroke scale of 1 Patient has left arm weakness, no sensation loss, reflexes are brisk and equal, patient is unable to move her lower extremities which is chronic, her speech is clear and fluent, she has no cranial nerve abnormalities Psychiatric exam: Patient is tearful, and is depressed. She has no active visual or auditory hallucination Objective Labs Result Diagrams: 07/07/19 11:10 07/07/19 11:10 Labs: Laboratory Results - last 24 hr 07/07/19 07/07/19 07/07/19 11:10 11:10 11:10 WBC 9.6 RBC 4.42 Hgb 13.8 Hct 42.1 MCV 95.2 MCH 31.2 MCHC 32.8 RDW 15.1 H Plt Count 204 Neut % (Auto) 56.9 Lymph % (Auto) 18.6 L [place] % (Auto) 23.2 H Eos % (Auto) 0.6 L Baso % (Auto) 0.7 Neut # (Auto) 5500 Lymph # (Auto) 1800 [place] # (Auto) 2200 H Eos # (Auto) 100 Baso # (Auto) 100 PT 17.8 H INR 1.5 H APTT 39 H D Sodium 140 Potassium 4.3 Chloride 98 Carbon Dioxide 30 BUN 35 H Creatinine 1.40 H Estimated GFR 36.5 L BUN/Creatinine Ratio 25.0 H Glucose 225 H Calcium 9.4 Total Bilirubin 0.6 AST 32 ALT 26 Alkaline Phosphatase 84 Ammonia Troponin I Total Protein 8.1 Albumin 4.2 Globulin 3.9 Albumin/Globulin Ratio 1.1 Lipase 40 Ethyl Alcohol < 10 07/07/19 07/07/19 11:10 11:15 WBC RBC Hgb Hct MCV MCH MCHC RDW Plt Count Neut % (Auto) Lymph % (Auto) [place] % (Auto) Eos % (Auto) Baso % (Auto) Neut # (Auto) Lymph # (Auto) [place] # (Auto) Eos # (Auto) Baso # (Auto) PT INR APTT Sodium Potassium Chloride Carbon Dioxide BUN Creatinine Estimated GFR BUN/Creatinine Ratio Glucose Calcium Total Bilirubin AST ALT Alkaline Phosphatase Ammonia < 9 L Troponin I < 0.012 Total Protein Albumin Globulin Albumin/Globulin Ratio Lipase Ethyl Alcohol Assessment & Plan Assessment & Plan narrative: Impression 1. Abrupt onset left arm weakness, associated facial droop and speech abnormalities Differential diagnosis includes TIA versus stroke -patient with a history of atrial fibrillation, hyperlipidemia, hypertension putting her at risk. -despite apixaban patient is still at risk for CVA, head CT and CT angio of the neck unrevealing -will obtain cardiac echo, MRI of the brain in the morning -will continue her statin, antihypertensive, aspirin and apixaban at this time 2. Chronic kidney disease, stage III -Avoid nephrotoxic agents and continue to monitor -continue Unasyn 3. Chronic pain -continue her outpatient pain regimen 4. GERD -continue proton 5. Morbid obesity 6. Depression -continue duloxetine 7. Type 2 diabetes -will continue her outpatient regimen 8. Chronic edema -continue Lasix -discontinue IV fluid 9. Hypertension -continue lisinopril and Cardizem 10. Atrial fibrillation, chronic -continue apixaban -continue Cardizem for rate could -obtain 2D echo in the morning 11. Hypothyroidism -continue L-thyroxine Patient is DNR, will note that her record accordingly Quality VTE Deep Vein Thrombosis/Pulmonary Embolism Present on Admission: No
[2019-07-07] MEDS: NYSTATIN CREAM 30 GM 1 APPLIC TOP (21:15)
[2019-07-07] MEDS: NYSTATIN POWDER 15GM 1 APPLIC TOP (21:15)
[2019-07-07] MEDS: SENNOSIDES 8.6 MG TABLET 17.2 MG PO (21:31)
[2019-07-07] MEDS: ACETAMINOPHEN 325 MG TABLET 975 MG PO (21:32)
[2019-07-07] MEDS: BACLOFEN 10 MG TABLET PO (21:32)
[2019-07-07] MEDS: ATORVASTATIN 20 MG TABLET 40 MG PO (21:32)
[2019-07-07] MEDS: INSULIN GLARGINE 100 UNIT/ML 10ML VIAL 72 UNIT SUBCUT (21:33)
[2019-07-07] MEDS: GABAPENTIN 600 MG TABLET PO (21:33)
[2019-07-07] MEDS: GABAPENTIN 400 MG CAPSULE PO (21:33)
[2019-07-07] MEDS: INSULIN ASPART 100 UNIT/ML INSULN PEN SUBCUT (21:33)
[2019-07-07] MEDS: lisinopriL 20 MG TABLET PO (21:34)
[2019-07-07] MEDS: APIXABAN 5 MG TABLET PO (21:34)
[2019-07-07] MEDS: buPROPion SR 100 MG TAB PO (21:34)
[2019-07-07] MEDS: DOCUSATE 100 MG CAPSULE PO (21:34)
[2019-07-07] MEDS: DOCUSATE 250 MG CAPSULE PO (22:01)
--- NOTE | 2019-07-08 03:16 | PC.NURSE ---
Patient seen and assessed at 0045. Oriented except insisted the month was May and did not know the date in May. Has slight facial droop, ataxia of UE (LE not assessed for ataxia), drift of all extremities and drift down to bed of right LE resulting in NIH of 8. Noted ER NIH score was [address] Hernandez's h&p NIH was 1 so discussed result with JUANJO Cline, with no change in orders. Breath sounds diminished but CTA; oxygen at 1L/min per NC with sat of 95%; is on continuous oximetry. HR irregular with telemetry reading of afib CVR. Denies nausea. BT hypoactive. Incontinent of urine. Has moist, red, excoriated skin in abdominal and groin folds. Open area noted at top of gluteal fold. Has venous discoloration to bilateral LE with old bruise noted on right lower leg. Scar on left lower leg which patient states is from history of past injury when she fell out of her motorized wheelchair. Will be turning patient q2h as is not able to move herself as is extremely weak in all extremities. Denies pain when asked. Wearing bilateral calf SCD's. Fall risk score is high and bed alarm is activated.
[2019-07-08 03:46] VITALS: BP 118/68; PULSE 61; RESP 18; TEMP 36.3; O2SAT 94
[2019-07-08 05:29] LABS: Add Manual Diff / Slide Review NO; Basophils Absolute Auto 100 /uL (0-100); Basophils Percent Auto 0.6 % (0-2); Eosinophils Absolute Auto 100 /uL (0-450); Eosinophils Percent Auto 0.6 % (2-4); Hematocrit 38.8 % (36-46); Hemoglobin 13.1 g/dL (12.0-16.0); Lymphocytes Absolute Auto 2400 /uL (1100-4500); Lymphocytes Percent Auto 25.9 % (25-40); Mean Corpuscular HGB Conc 33.7 % (30-36); Monocytes Absolute Auto 2400 /uL (0-900); Monocytes Percent Auto 25.9 % (3-14); Neutrophils Absolute Auto 4400 /uL (1500-7000); Platelet Count 189 X10^3/uL (150-400); Red Blood Cell Count 4.08 X10^6/uL (4.0-5.2); Red Cell Distribution Width 15.4 % (11.6-14.8); White Blood Cell Count 9.4 X10^3/uL (4.5-11.0)
[2019-07-08 05:40] LABS: Alanine Aminotransferase 26 IU/L (<35); Albumin 3.9 g/dL (3.5-5.0); Albumin Globulin Ratio 1.1 (1.0-2.8); Alkaline Phosphatase 74 U/L (38-126); Aspartate Aminotransferase 32 IU/L (14-36); BUN Creatinine Ratio 28.9 (6-22); Bilirubin Total 0.6 mg/dL (0.2-1.3); Blood Urea Nitrogen 26 mg/dL (7-17); Calcium 9.3 mg/dL (8.4-10.2); Carbon Dioxide 31 mmol/L (22-32); Chloride 102 mmol/L (98-107); Estimated Glomerular Filt Rate > 60.0 mL/min (>60); Globulin 3.6 g/dL (1.7-4.1); Glucose 123 mg/dL (80-110); HEMOLYSIS < 15 (0-50); Potassium 3.8 mmol/L (3.4-5.1); Sodium 145 mmol/L (137-145); Total Protein 7.5 g/dL (6.3-8.2)
[2019-07-08 05:49] LABS: NT-proBNP (BNP-Adult 18+) 681 pg/mL (<450)
[2019-07-08 07:38] VITALS: BP 150/70; PULSE 65; RESP 20; TEMP 35.9; O2SAT 95
[2019-07-08 08:22] VITALS: O2SAT 96
--- NOTE | 2019-07-08 08:49 | PC.NURSE ---
ASSESS-Patient is A&Ox3. BS CTA and she is on 1L of o2 at 96%. We will take her of oxygen to see if her sats stay above 92%. Just told that patient is to large to fit in our MRI Machine. He states that she may be able to go back to [facility] today. Patients NIH score a 2, she performed everything wnl, accept patient does have a bit of left sided facial droop when smiling. She is feeding herself breakfast now. Patient incontinent of urine, cleaned up. Skin with some issues, can be found under skin assessment.
[2019-07-08] MEDS: ACETAMINOPHEN 325 MG TABLET 975 MG PO (09:04)
[2019-07-08] MEDS: ASPIRIN EC 81 MG TABLET PO (09:06)
[2019-07-08] MEDS: PANTOPRAZOLE 40 MG TABLET PO (09:07)
[2019-07-08] MEDS: FUROSEMIDE 40 MG TABLET 80 MG PO (09:07)
[2019-07-08] MEDS: POTASSIUM CHLORIDE 10 MEQ TAB PO (09:07)
[2019-07-08] MEDS: BACLOFEN 10 MG TABLET PO (09:07)
[2019-07-08] MEDS: DULOXETINE 30 MG CAPSULE 90 MG PO (09:07)
[2019-07-08] MEDS: lisinopriL 20 MG TABLET PO (09:08)
[2019-07-08] MEDS: MULTIVIT,CALC,MINS/IRON/FOLIC 1 TABLET 1 TAB PO (09:08)
[2019-07-08] MEDS: METFORMIN HCL 500 MG TABLET PO (09:08)
[2019-07-08] MEDS: ARIPiprazole 10 MG TABLET 2.5 MG PO (09:08)
[2019-07-08] MEDS: dilTIAZem CD 240 MG CAP PO (09:08)
[2019-07-08] MEDS: buPROPion SR 100 MG TAB PO (09:10)
[2019-07-08] MEDS: DOCUSATE 250 MG CAPSULE PO (09:10)
[2019-07-08] MEDS: SENNOSIDES 8.6 MG TABLET 17.2 MG PO (09:12)
[2019-07-08] MEDS: LEVOTHYROXINE 100 MCG TABLET PO (09:12)
[2019-07-08] MEDS: APIXABAN 5 MG TABLET PO (09:19)
[2019-07-08] MEDS: SODIUM CHLORIDE 0.9% FLUSH 10 ML IV (09:21)
[2019-07-08] MEDS: INSULIN GLARGINE 100 UNIT/ML 3ML PEN 72 UNIT SUBCUT (09:26)
[2019-07-08 11:11] VITALS: BP 141/82; PULSE 82; RESP 20; TEMP 36.3; O2SAT 93
--- NOTE | 2019-07-08 11:13 | OT.IP.TRT ---
Occupational Therapy Administrative Note M3 OT- IP Subjective and Pain Start: 07/08/19 09:03 Freq: Status: Active Protocol: Document 07/08/19 11:13 [email or web address] (Rec: 07/08/19 15:53 [email or web address] [id number]) OT- Subjective Occupational Therapy Visit Type Type Administrative Note Visit Start Time 11:03 Visit Stop Time 11:13 Notes OT referral received on this 78 year old morbidly obese woman admitted with L side weakness and facial droop, now resolving. Head CT neg. Brief ADL interview completed. Pt lives at [facility] facility and has not ambulated in 3 years. She transfers to recliner, power w/c or [facility] with usman lift and assist of 3 persons due to her size. She is able to feed herself and complete grooming tasks in bed or w/c. She requires total assist with dressing, bathing and toileting. Pt has very mild LUE strength deficits per P.T. assessment , but pt is R dominant and deficits are not interfering with functional use. Pt appears to be at her baseline level of function for self care tasks and no OT goals identified for this admission. Pt plans to d/c back to [facility] facility today. No charge.
--- NOTE | 2019-07-08 11:39 | PT.IIE ---
Surgical History (Last Reviewed 07/07/19 @ 19:18 by Brooke Hernandez MD) History of bilateral knee replacement (Resolved) Medical History (Last Reviewed 07/07/19 @ 19:17 by Brooke Hernandez MD) Anemia (Chronic) Atherosclerotic heart disease of [place] coronary artery without angina pectoris (Chronic) Atrial fibrillation (Chronic) Chronic kidney disease, stage 3 (Chronic) Chronic pain syndrome (Chronic) Diabetes (Chronic) Gastroesophageal reflux disease (Chronic) Hereditary and idiopathic neuropathy, unspecified (Chronic) Hyperlipidemia (Chronic) Hypertension (Chronic) Hypertensive chronic kidney disease with stage 1 through stage 4 chronic kidney disease, or unspecified chronic kidney disease (Chronic) Hypothyroidism (Chronic) Insomnia (Chronic) 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 Able to make needs known Mobility and Gait Pt is non ambulatory and primarily bed bound and uses usman lift with 3PA for transfers. Pt stated the last time she was able to stand up / amb was 3 years ago. She uses power w/c for all mobility. Activities of Daily Living and IADL's Pt needed total assistance for dressing, BSC transfer, showering and self cleaning, but she is able to self feed and some self care such as brushing teeth and combing her hair. Social History Household Members caregiver Living Arrangements 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 Facility Number of Stairs To Enter/Railing? no VISH Home Environment High Toilet,Walk in Shower Home Equipment Power Wheelchair/Scooter, Mechanical Lift,Hospital Bed, Grab Bars Near Toilet,Grab Bars In Shower Employment Status Retired Additional Social History Comment Pt lives in [facility] primarily d/t immobility. Pt is insulin dependent and needed full assist for ADLs and IADLs. Pt' s dtr lives closeby and often visit pt. M2 PT-IP Current Condition Start: 07/08/19 08:12 Freq: NEEDED Status: Active Protocol: Document 07/08/19 11:15 (Rec: 07/08/19 11:39 [email or web address]) Physical Therapy Current Condition Current Condition Evaluation Date 07/08/19 Treatment Diagnosis generalized weakness, L sided weakness, slurred speech. Onset Date 07/07/19 Weight Bearing Status Weight Bearing Status Full Weight Bearing M3 PT-IP Subjective Start: 07/08/19 08:12 Freq: NEEDED Status: Active Protocol: Document 07/08/19 11:15 HH (Rec: 07/08/19 11:39 [email or web address]) Subjective Physical Therapy Visit Type Type Initial Evaluation Visit Start Time 10:50 Visit Stop Time 11:12 Total Visit Minutes 22 Notes MARTHA Tiwari stated pt has regained most UE mobility and strength but still noticead mild L facial droop. Number of LEAD ETL DEVELOPER Visits 0 Physical Therapy Visit Comments Patient Comments Im doing okay. Pt agreeable to mobilize with PT Patient Goals To return to [facility] Therapy Pain Assessment Pain Present Pain Present Pain Reported Location Back Intensity 4 Scale Used Numeric (1 - 10) Description Aching Pain Behaviors Facial Grimacing M4 PT-IP Mobility and Gait Start: 07/08/19 08:12 Freq: NEEDED Status: Active Protocol: Document 07/08/19 11:15 (Rec: 07/08/19 11:39 [email or web address]) PT-Bed Mobility Assessment Rolling Type of Rolling Roll to Right,Roll to Left Level of Assist Maximal Assistance,2 Person Assistance Supine to Sit Supine to Sit Total Assistance Sit to Supine Sit to Supine Total Assistance Scooting Scooting to Edge of Bed Dependent Scooting Up and Down in Bed Dependent PT-Transfer Assessment Sit to and From Stand Sit to and from Stand Total Assistance Equipment Transfer Assistive Device Mechanical Lift Orthotic/Prosthetic Devices or Brace: No Transfers Transfer Destination Bed,Chair Transfer Technique Mechanical Lift Transfer Ability Level of Assist Total Assistance Comments Mobility Comments Pt was up in chair upon assessment who was transferred from bed to [facility] then bedside chair through usman lift. This therapist assessed pt's vision, ROM, strength, coordination, tone and reflexes are intact and did not notice significant changes compared to R side except slight decrease in strength of L wrist and hands. At the end of stroke assessment, RN requested to transfer pt to bed for echocardiogram. Used usman lift with OT and GARMENT TURNER assistance. Pt then needed max A x 2 to roll from side to side, along with bed tilt assistance to remove usman sling. Pt demonstrateed difficulty to bend her LE and reach across midline with UE due to significant weakness. Leave pt with GARMENT TURNER and call light to reach. Gait Assessment Comments Gait Comments unable at baseline Stair Climbing Assessment Comments Stair Climbing Comments unable at baseline PT-Balance Assessment Sitting Balance and Reactions Static Sitting Balance Ability Fair Dynamic Sitting Balance Ability Poor M5 PT-IP Objective Assessments Start: 07/08/19 08:12 Freq: NEEDED Status: Active Protocol: Document 07/08/19 11:15 (Rec: 07/08/19 11:39 [email or web address]) Orientation Orientation/Cognition Level of Alertness Alert Orientation Name,Age,Birthday,Month,Date Language Function Ability Garbled Speech,Word Finding Difficulties Safety Awareness Understands Safety Issues Memory Description No Deficits Noted Comments Dtr stated that pt has little to none difficulty for speech at this point, and somewhat close to baseline. Gross Range of Motion Upper Extremity ROM Assessment Bilaterally Impaired Impairments able to reach her head but slowly, c/o back pain with arms movements Lower Extremity ROM Assessment Bilaterally Impaired Impairments only able to perform slow toe tap, cannot do seated marching . Strength Upper Extremity Strength Assessment Bilaterally Impaired Shoulder 3/5 Elbow 3+/5 Wrist 3+/5 Hand 3+/5 Lower Extremity Strength Assessment Bilaterally Impaired Hip 3-/5 Knee 3-/5 Ankle 3+/5 Comments Strength Comments R UE = 3+/5 grossly L UE = 3+/5 grossly except wrist and hand = 3/5 Coordination Assessment Gross Coordination Gross Coordination WNL Assessment Finger to Nose Test Minimal Impairment Pronation/Supination Test Minimal Impairment Foot Tapping Test Moderate Impairment Heel on Fields Test Moderate Impairment Coordination Comments symmetrical performance bilaterally. (slower than normal but accurately executed ) Sensation Assessment Sensation Gross Sensation WNL Muscle Tone Muscle Tone WNL No Muscle Tone Location Bilateral Upper Extremity Type of Tone Rigidity Severity of Tone Mild M6 PT-IP Treatment Start: 07/08/19 08:12 Freq: NEEDED Status: Active Protocol: Document 07/08/19 11:15 (Rec: 07/08/19 11:39 [email or web address]) Physical Therapy Treatment Education Education Provided Safety M7 PT-IP Assessment and Plan Start: 07/08/19 08:12 Freq: NEEDED Status: Active Protocol: Document 07/08/19 11:15 (Rec: 07/08/19 11:39 [email or web address]) PT Summary Assessment and Plan Potential Rehabilitation Potential Good Status of Condition at Evaluation Evolving Summary Impairments Pain,ROM,Strength,Balance, Coordination,Sensation,Tone, Cognition,Bed Mobility, Transfers,Gait,Activity Tolerance Progress Towards Goals Safe For Discharge Assessment Summary Pt is an evaluation only d/t her very low functioning baseline prior to admission. PLOF= total assist for ADLs/ IADLs and unable to mobilize since 3 years. Pt uses power w /c for all mobility and usman lift for all transfers. CLOF= at baseline, pt's vision, ROM, strength, coordination, tone and reflexes are all intact and did not notice significant changes compared to R side except slight decrease in strength of L wrist and hands. Completed usman lift transfers with 3PA and 2PA for bed rolling. Pt is currently at baseline and safe to d/c back to [facility]. Frequency of Treatment Frequency Of Treatment Discharge Recommendations To Nursing Amount of Assist Needed Mechanical Lift Discharge Recommendations PT Discharge Recommendations SNF Rehab Transportation Needs at Discharge Wheelchair/Cabulance
[2019-07-08] MEDS: INSULIN ASPART 100 UNIT/ML INSULN PEN SUBCUT (12:35)
--- NOTE | 2019-07-08 14:12 | CM.DANOTE ---
Addendum entered by NEEL Noble 07/08/19 16:04: ADD: Return call from [facility] stating they can accept pt and transport could arrive in 15 min. RIKY quickly updated MD who completed d/c and signed med rec and updated RN. Dtr was outside pt's room and SW discussed d/c and she is agreeable and discussed likely Pall Care Consult with Dr. Narvaez to discuss Goals of Care and furture planning and Dtr very agreeable. BF Addendum entered by NEEL Noble 07/08/19 15:04: ADD: Return call from Susan at [facility] stating their RN can come assess pt within the hour and be here before 1600 and if they can accept back then staff needs to call her cell phone [phone] to determine if they have availability to transport pt back today. RIKY updated MD and RN and left Susan's cell # with RN to call if pt approved to come back today. BF Original Note: DCP Assessment: Patient is a 78 year old female who was admitted on 07/07/19 for Possible Stroke. Pt has [employer] for insurance and her PCP is Dr. Narvaez. EMR was reviewed. Per MD, pt could benefit from MRI to rule out stroke vs TIA but pt too bariatric to fit in MRI machine and historically has been too large for MRI machines and pt appears to be back to baseline with need for neurology outpt appointment for follow up. Per MD, believes hand weakness is due to muscular skeletal issues rather than stroke and highly recommending Neurology appointment for follow up. Per PT, assessed pt who is w/c bound at baseline with usman lift and is currently at baseline with mobility and transfers and recommends return to [facility]/Agency. 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 RIKY called [facility] Susan and updated on above and faxed clinicals for review and stated pt is back to baseline and ready for d/c back and since pt has been here slightly over 24 hours and will require bedside assessment by their RN and they likely do not have anyone available today to complete bedside assessment and requesting pt stay tonight and be assessed right away in the morning. RIKY discussed that pt medically stable and hospital is getting full and highly encouraged her to call to see if anyone can come in to assess pt today. Susan will place calls and let RIKY know. RIKY updated MD. Plan: RIKY to follow closely for return call from Susan at [facility] to determine if pt can be assessed today vs the morning for return with outpt follow up appointments. NEEL Noble
[2019-07-08] MEDS: NYSTATIN POWDER 15GM 1 APPLIC TOP (14:46)
--- NOTE | 2019-07-08 15:49 | P.DS_ITS ---
History of Present Illness History of Present Illness Date Patient Seen: 07/08/19 Time Patient Seen: 15:49 Chief complaint: Code Stroke Narrative: Per Dr. Hernandez, The patient is a 78-year-old female with a history of atrial fibrillation on apixaban, chronic kidney disease, type 2 diabetes, GERD, hypertension hyperlipidemia who lives at [facility]. 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 She was noted to be weaker on the left than the right. She had difficulty with speech and reported facial droop. The patient was brought into the emergency room for evaluation. She continued to have left hand weakness. Her facial droop improved. Her speech was interpreted to be normal. Patient had a head CT which was unremarkable. She had a CT a of her neck. There was no carotid disease. Consult with [facility] neurology suggested that the patient be admitted to the hospital for MRI and further workup. The patient denies any headache. She does report some blurred vision med improves when wearing her glasses. She has had no drooling. She has had no tonic-clonic activity. She does report that she was short of breath in the [facility] room and placed on oxygen. Patient had a NIH stroke scale and had a score of +1. She is chronically bed-bound and does not ambulate. Her lower extremity exam was unable to be evaluated. Patient continues to report left hand numbness and is admitted to the hospital at this time for further evaluation of TIA versus stroke. Discharge Providers Provider Date of admission: 07/07/19 13:55 Discharge Date: 07/08/19 Consults: 07/07/19 18:47 Consult to Occupational Therapy Evaluate & Treat Comment: Physician Instructions: Evaluate and treat Consult to Physical Therapy Evaluate & Treat Comment: Physician Instructions: Evaluate and Treat Discharge provider: Yunier Herrera DO Summary Hospital Course Discharge Diagnosis: 1. TIA, acute, present on admission, resolved. 2. LUE numbness, chronic, present on admission, 3. Chronic kidney disease, stage III 4. Chronic pain 5. GERD 6. Morbid obesity 7. Depression 8. Type 2 diabetes 9. Chronic edema 10. Hypertension 11. Atrial fibrillation, chronic 12. Hypothyroidism Hospital Course: The patient is a 78-year-old female with a history of atrial fibrillation on apixaban, chronic kidney disease, type 2 diabetes, GERD, hypertension hyperlipidemia who lives at [facility] who was brought in over concerns for slurred speech, left-sided facial droop, left-sided weakness, and left numbness. Her symptoms had largely improved, now she only complains of numbness in the 3rd through 5th fingers on her left hand. Due to patient's morbid obesity, she was unable to undergo an MRI. The patient is at risk for stroke given her AFib, and diabetes, hypertension, hyperlipidemia, and morbid obesity however she is on appropriate secondary prevention medications at this time and further management from here would not change based on an MRI result. I do recommend that she follow-up with an outpatient neurologist, and that she be seen for possible medial or lateral epicondylitis as an outpatient which could be causing her numbness. She can also have a nerve conduction study done as an outpatient with the help of neurologist. Exam Vital Signs (past 8 hours): - 07/08/19 08:22 Pulse Oximetry 96 Oxygen Delivery Method Nasal Cannula Oxygen Flow Rate 1 Narrative Exam Narrative: General: Pleasant female tearful HEENT: Normocephalic atraumatic, extraocular muscles are intact, there is no facial asymmetry, tongue is midline speech is clear Neck is supple: No adenopathy or thyromegaly Lungs reveal decreased breath sounds bilaterally Cardiac exam: Irregularly irregular, normal S1-S2, 2/6 systolic ejection murmur Abdomen obese soft nontender nondistended without appreciable hepatosplenomegaly Lower extremities: 1 to 2+ edema bilaterally Skin lower extremities reveal chronic venous stasis changes, well-healed left inner thigh scar noted Neuro exam: Patient is equally strong in her upper extremities bilaterally, no sensation loss, reflexes are brisk and equal, patient is unable to move her lower extremities which is chronic, her speech is clear and fluent, she has no cranial nerve abnormalities. Reports numbness on 3rd - 5th fingers on her L hand. MSK: patient tender over her L medial epicondyle, negative tinel testing. Psychiatric exam: Patient is tearful, and is depressed. She has no active visual or auditory hallucination Objective Labs Result Diagrams: 07/08/19 05:13 07/08/19 05:13 Labs: Laboratory Results - last 24 hr 07/08/19 07/08/19 07/08/19 05:13 05:13 05:13 WBC 9.4 RBC 4.08 Hgb 13.1 Hct 38.8 MCV 95.0 MCH 32.0 MCHC 33.7 RDW 15.4 H Plt Count 189 Neut % (Auto) 47.0 L Lymph % (Auto) 25.9 [place] % (Auto) 25.9 H Eos % (Auto) 0.6 L Baso % (Auto) 0.6 Neut # (Auto) 4400 Lymph # (Auto) 2400 [place] # (Auto) 2400 H Eos # (Auto) 100 Baso # (Auto) 100 Sodium 145 Potassium 3.8 Chloride 102 Carbon Dioxide 31 BUN 26 H Creatinine 0.90 Estimated GFR > 60.0 BUN/Creatinine Ratio 28.9 H Glucose 123 H D Calcium 9.3 Total Bilirubin 0.6 AST 32 ALT 26 Alkaline Phosphatase 74 NT-Pro-B Natriuret Pep 681 H Total Protein 7.5 Albumin 3.9 Globulin 3.6 Albumin/Globulin Ratio 1.1 Discharge Plan Discharge Plan Patient Disposition: Assisted Living Transfer to: [facility] Transportation: Facility vehicle Discharge comment: You were admitted to the hospital with a possible stroke. You were unable to have an MRI due to your size. Your symptoms have improved. This may be due to a side effect of a medication called gabapentin for which you are on a high dose of but this is unclear. I do recommend follow-up with a neurologist as an outpatient whom may be able to schedule you for an MRI at a facility with a bariatric machine. I do recommend you try and reduce your dosing of gabapentin with consultation from your primary care provider. I also recommend a consultation with palliative care for goals of care discussions going forward. I discussed this briefly with Jaz Higgins whom can possibly see you at your care center for consultation. Discharge orders & Medications Discharge Orders: Discharge (Order); Ordered 07/08/19 Ordered By: Yunier Herrera Prescriptions: Continued nitroglycerin [Nitrostat] 0.4 MG tablet, sublingual 0.4 mg Sublingual PRN PRN (Reason: Chest Pain) Qty: 0 RF: 0 ondansetron HCl 4 MG tablet 4 mg PO Q4HP PRN (Reason: Nausea) Qty: 0 RF: 0 atorvastatin 40 mg Tablet 40 mg PO BEDTIME RF: 0 potassium chloride 10 mEq Capsule, Extended Release 10 meq PO DAILY RF: 0 acetaminophen 325 mg Tablet 650 mg PO Q4H MDD 3 g PRN (Reason: pain) RF: 0 diltiazem HCl 240 mg Capsule,Extended Release 24 Hr 240 mg PO DAILY RF: 0 aspirin [Aspir-Low] 81 mg Tablet,Delayed Release (Dr/Ec) 81 mg PO DAILY RF: 0 bupropion HCl 100 mg Tablet Sustained-Release 12 Hr 100 mg PO BID RF: 0 docusate sodium 100 mg Tablet 200 mg PO BID RF: 0 aripiprazole 5 mg Tablet 2.5 mg PO DAILY RF: 0 Myrbetriq 25 mg Tablet Extended Release 24 Hr 25 mg PO DAILY RF: 0 metformin 500 mg tablet 500 mg PO QAM RF: 0 gabapentin 600 mg tablet 1,000 mg PO TID RF: 0 lidocaine [Aspercreme (lidocaine)] 4 % Adhesive Patch,Medicated 1 patch TOPICAL DAILY RF: 0 lisinopril 20 mg tablet 20 mg PO BID RF: 0 gabapentin 400 mg capsule 1,000 mg PO TID RF: 0 levothyroxine 100 mcg tablet 100 mcg PO DAILY RF: 0 furosemide 80 mg tablet 80 mg PO DAILY RF: 0 baclofen 10 mg tablet 10 mg PO [id number] RF: 0 pantoprazole 40 mg tablet,delayed release (DR/EC) 40 mg PO DAILY RF: 0 nystatin 100,000 unit/gram cream 1 applic TOPICAL BID RF: 0 lorazepam 1 mg tablet 1 mg PO BEDTIME PRN (Reason: Anxiety) RF: 0 duloxetine 30 mg Capsule,Delayed Release(Dr/Ec) 90 mg PO DAILY RF: 0 Eliquis 5 mg tablet 5 mg PO BID RF: 0 Hysingla ER 40 mg tablet,oral only,ext.rel.24 hr 40 mg PO QAM RF: 0 nystatin 100,000 unit/gram Powder 1 applic TOPICAL TID RF: 0 acetaminophen 500 mg Tablet 1,000 mg PO BID MDD 3 g RF: 0 polyethylene glycol 3350 17 gram/dose Powder 17 g PO DAILY PRN (Reason: Constipation) RF: 0 multivitamin with minerals Capsule 1 cap PO DAILY RF: 0 sennosides [senna] 8.6 mg Tablet 17.2 mg PO BID RF: 0 Lantus U-100 Insulin 100 unit/mL Solution 72 units subcut BID RF: 0 melatonin 3 mg Tablet 3 mg PO BEDTIME PRN (Reason: Insomnia) RF: 0 insulin lispro [Humalog U-100 Insulin] 100 unit/mL Solution See Rx Instructions .ROUTE .COMPLEX RF: 0 oxycodone 10 mg Tablet 10 mg PO Q6H PRN (Reason: breakthrough pain level 5-10) Qty: 40 RF: 0 Follow up/Referrals: Jaz Higgins ARNP [Advanced Style Advisor] - (Palliative Care, possible outpatient consultation) Diet/Activity/Treatments Diet: Diet as Tolerated Activity: As tolerated Discharge Data Attending Provider: Brooke Hernandez Admit Date/Time: 07/07/19 13:55 Discharges patient from system. Discharge Date/Time: 07/08/19 16:25 Quality VTE Deep Vein Thrombosis/Pulmonary Embolism Present on Admission: No
[2019-07-08 16:25] VITALS: BP 143/69; PULSE 68; RESP 20; TEMP 36.8; O2SAT 92
--- NOTE | 2019-07-08 18:28 | PC.NURSE ---
Addendum entered by Genesis Jefferson R.N. 07/08/19 18:35: reassessed pt and spoke with pt and dtr prior to pt leaving unit. Pt left unit in stable condition. Original Note: Assumed care of pt at 1500. Pt resting in bed, reports she had BM. Briefs changed by this contract technical writer, MAC and 2 nursing students. [facility] staff arrived to fruit or nut picker pt at 1545. Per care management [facility] has already assessed pt and is accepting her back. completed discharge. Pt trans to w/c. escorted out with all personal belongings and d/c packet. Report given to Bradly at [facility].
== END 2019-07-08 16:25 ==
LOC: ED 13:55 → AC 13:55
PROVIDERS: Nurse Practitioner Adult Health; Admitting Provider Internal Medicine; Emergency Provider Emergency Medicine; Referring Provider Emergency Medicine; Visit Provider Internal Medicine
DX: G45.9 Transient cerebral ischemic attack, unspecified (principal); R29.818 Other symptoms and signs involving the nervous system; Z79.01 Long term (current) use of anticoagulants; R20.0 Anesthesia of skin; N18.3 Chronic kidney disease, stage 3 (moderate); G89.29 Other chronic pain; K21.9 Gastro-esophageal reflux disease without esophagitis; E66.01 Morbid (severe) obesity due to excess calories; F32.9 Major depressive disorder, single episode, unspecified; E11.9 Type 2 diabetes mellitus without complications; R60.9 Edema, unspecified; I10 Essential (primary) hypertension; I48.20 Chronic atrial fibrillation, unspecified; E03.9 Hypothyroidism, unspecified; Z79.4 Long term (current) use of insulin
CPT/HCPCS: 36415; 70450; 70496; 70498; 80053; 80320; 82140; 82962; 83690; 83880; 84484; 85025; 85610; 85730; 87040; 93005; 93306; 94762; 96360; 96361; 96372; 97161; 99285; G0378; Q9957; Q9967

== ENCOUNTER 2019-07-09 23:14 | Emergency (ER) | payer MEDICARE, OTHER, MEDICAID, SELFPAY ==
[2019-07-07 15:23] VITALS: BMI 51.9
[2019-07-09 23:22] VITALS: BP 180/84; PULSE 61; RESP 17; TEMP 36.4; O2SAT 92
--- NOTE | 2019-07-09 23:24 | ED_ITS ---
HPI - Altered Mental Status General Chief Complaint: Altered Mental Status Stated Complaint: Altered Mental Status Time Seen by Provider: 07/09/19 23:15 Source: patient and EMS Mode of arrival: EMS Limitations: no limitations History of Present Illness HPI narrative: [age] year old female with atrial fib, diabetes and recent TIA presents by EMS for evaluation of some diaphoresis earlier today. She's had no headache, confusion, ongoing neurologic symptoms, chest pain, SOB, N/V/D. She currently has no symptoms. She is at her baseline per medics and staff whom have seen her before. MD complaint: other Onset (ago): hour(s) Timing confirmed by: caregiver Severity: mild Associated symptoms: denies other symptoms Related Data Home Medications Medication Instructions Recorded Confirmed nitroglycerin [Nitrostat] 0.4 mg SUBLINGUAL PRN PRN #0 07/05/16 07/07/19 ondansetron HCl 4 mg PO Q4HP PRN #0 04/08/17 07/07/19 nystatin 1 applic TOPICAL TID 12/04/17 07/07/19 Myrbetriq 25 mg PO DAILY 04/03/18 07/07/19 acetaminophen 650 mg PO Q4H PRN MDD 3 g 04/03/18 07/07/19 aripiprazole 2.5 mg PO DAILY 04/03/18 07/07/19 aspirin [Aspir-Low] 81 mg PO DAILY 04/03/18 07/07/19 atorvastatin 40 mg PO BEDTIME 04/03/18 07/07/19 bupropion HCl 100 mg PO BID 04/03/18 07/07/19 diltiazem HCl 240 mg PO DAILY 04/03/18 07/07/19 docusate sodium 200 mg PO BID 04/03/18 07/07/19 potassium chloride 10 meq PO DAILY 04/03/18 07/07/19 acetaminophen 1,000 mg PO BID MDD 3 g 04/14/18 07/07/19 Lantus U-100 Insulin 72 units SUBCUT BID 06/06/18 07/07/19 insulin lispro [Humalog U-100 See Rx Instructions .ROUTE .COMPLEX 06/06/18 07/07/19 Insulin] melatonin 3 mg PO BEDTIME PRN 06/06/18 07/07/19 multivitamin with minerals 1 cap PO DAILY 06/06/18 07/07/19 polyethylene glycol 3350 17 g PO DAILY PRN 06/06/18 07/07/19 sennosides [senna] 17.2 mg PO BID 06/06/18 07/07/19 Eliquis 5 mg PO BID 07/07/19 07/07/19 Hysingla ER 40 mg PO QAM 07/07/19 07/07/19 baclofen 10 mg PO [id number] 07/07/19 07/07/19 duloxetine 90 mg PO DAILY 07/07/19 07/07/19 furosemide 80 mg PO DAILY 07/07/19 07/07/19 gabapentin 1,000 mg PO TID 07/07/19 07/07/19 gabapentin 1,000 mg PO TID 07/07/19 07/07/19 levothyroxine 100 mcg PO DAILY 07/07/19 07/07/19 lidocaine [Aspercreme (lidocaine)] 1 patch TOPICAL DAILY 07/07/19 07/07/19 lisinopril 20 mg PO BID 07/07/19 07/07/19 lorazepam 1 mg PO BEDTIME PRN 07/07/19 07/07/19 metformin 500 mg PO QAM 07/07/19 07/07/19 nystatin 1 applic TOPICAL BID 07/07/19 07/07/19 pantoprazole 40 mg PO DAILY 07/07/19 07/07/19 Previous Rx's Medication Instructions Recorded oxycodone 10 mg PO Q6H PRN #40 tab 11/29/18 Allergies Allergy/AdvReac Type Severity Reaction Status Date / Time adhesive [ADHESIVE] Allergy Mild ALLERGY TO Verified 07/07/19 11:12 TAPE Review of Systems Constitutional Constitutional: Denies chills, Denies fatigue, Denies fever(s), Denies frequent falls, Denies lethargy and Denies weakness Eyes Eyes: Denies change in vision, Denies eye discharge, Denies irritation and Denies loss of vision ENT Ears, Nose, Mouth, and Throat: Denies change in voice, Denies dizziness, Denies neck pain, Denies sore throat and Denies throat swelling Cardiovascular Cardiovascular: Denies chest pain, Denies irregular heart rhythm, Denies lighth eadedness, Denies palpitations, Denies dyspnea, Denies dyspnea on exertion and Denies orthopnea Respiratory Respiratory: Denies cough, Denies dyspnea, Denies dyspnea on exertion and Denies wheezing Gastrointestinal Gastrointestinal: Denies abdominal pain, Denies change in bowel habits, Denies diarrhea, Denies nausea and Denies vomiting Genitourinary Genitourinary: Denies hematuria, Denies flank pain, Denies urinary incontinence and Denies urinary urgency Musculoskeletal Musculoskeletal: Denies back pain, Denies muscle weakness, Denies neck pain, Denies numbness and Denies tingling Integumentary/Breasts Skin/Breast: Denies pruritus, Denies erythema, Denies rash and Denies wounds Neurologic Neurologic: Denies behavioral changes, Denies confusion, Denies dizziness, Denies frequent falls, Denies loss of vision, Denies numbness, Denies tingling and Denies weakness Psychiatric Psychiatric: Denies anxiety, Denies behavioral changes, Denies confusion, Denies depression, Denies homicidal ideation and Denies suicidal ideation Endocrine Endocrine: Denies fatigue, Denies flushing and Denies palpitations Hematologic/Lymphatic Hematologic/Lymphatic: Denies easy bruising Allergic/Immunologic Allergic/Immunologic: Denies urticaria, Denies throat swelling and Denies wheezing Patient History Medical History Anemia (Chronic) Atherosclerotic heart disease of [place] coronary artery without angina pectoris (Chronic) Atrial fibrillation (Chronic) Chronic kidney disease, stage 3 (Chronic) Chronic pain syndrome (Chronic) Diabetes (Chronic) Gastroesophageal reflux disease (Chronic) Hereditary and idiopathic neuropathy, unspecified (Chronic) Hyperlipidemia (Chronic) Hypertension (Chronic) Hypertensive chronic kidney disease with stage 1 through stage 4 chronic kidney disease, or unspecified chronic kidney disease (Chronic) Hypothyroidism (Chronic) Insomnia (Chronic) FDC current use of anticoagulant therapy (Chronic) Major depressive disorder (Chronic) Obesity (Chronic) Obstructive sleep apnea (Chronic) Urinary incontinence (Chronic) Venous insufficiency (chronic) (peripheral) (Chronic) Wheelchair bound (Chronic) Surgical History History of bilateral knee replacement (Resolved) Family History Father Stroke Mother Cancer Other Family history non-contributory Social History household members: caregiver Smoking Status: Former smoker alcohol intake: former Smoking Status: Former smoker alcohol intake frequency: 0-2 drinks per day Substance Use Type: does not use Exam Narrative Exam Narrative: GENERAL: [78] year old patient appears stated age. Morbidly obese and chronically ill. In no obvious distress. Slow purposeful conversation HEAD: Atraumatic. Normocephalic. EYES: Pupils equal round and reactive. Extraocular motions intact. No scleral icterus. No injection or drainage. ENT: Nose without bleeding, purulent drainage. Throat without erythema, tonsillar hypertrophy or exudate. Airway patent. NECK: Trachea midline. Non tender CARDIOVASCULAR: Regular rate and rhythm without murmurs, gallops, or rubs. RESPIRATORY:Decreased sounds B/L bases. GASTROINTESTINAL: Abdomen soft, non-tender, nondistended. EXTREMITIES: No edema or joint tenderness. BACK: Nontender without deformity or crepitance. No flank tenderness. NEURO: AOx3. Slow speech, at baseline per patient. SKIN: No rash or erythema of visible areas Initial Vital Signs Initial Vital Signs: Vital Signs Temperature 97.6 F 07/09/19 23:22 Pulse Rate 61 07/09/19 23:22 Respiratory Rate 17 07/09/19 23:22 Blood Pressure 180/84 H 07/09/19 23:22 Pulse Oximetry 92 07/09/19 23:22 Course Orders Ordered: ED Orders 07/09/19 23:35 EKG-12 Lead Stat 07/09/19 23:50 Basic Metabolic Panel Stat Complete Blood Count AUTO DIFF Stat Troponin & CK Cardiac Panel Stat Vital Signs Vital signs: Vital Signs - 8 hr 07/09/19 23:22 07/10/19 00:59 07/10/19 01:05 Temperature 97.6 F Pulse Rate 61 64 63 Respiratory Rate 17 15 21 Blood Pressure 180/84 H Blood Pressure [Left Wrist] 131/70 Pulse Oximetry 92 94 96 MDM - Altered Mental Status Lab Data Result diagrams: 07/09/19 23:50 07/09/19 23:50 Labs: Lab Results 07/09/19 07/09/19 Range/Units 23:50 23:50 WBC 11.2 H (4.5-11.0) X10^3/uL RBC 4.66 (4.0-5.2) X10^6/uL Hgb 14.6 (12.0-16.0) g/dL Hct 44.8 (36-46) % MCV 96.2 (80-100) fL MCH 31.3 (26-34) PG MCHC 32.6 (30-36) % RDW 15.3 H (11.6-14.8) % Plt Count 216 (150-400) X10^3/uL Neut % (Auto) 52.0 (50-75) % Lymph % (Auto) 23.4 L (25-40) % [place] % (Auto) 22.8 H (3-14) % Eos % (Auto) 0.6 L (2-4) % Baso % (Auto) 1.2 (0-2) % Neut # (Auto) 5900 (1536-0779) /uL Lymph # (Auto) 2600 (5592-7137) /uL [place] # (Auto) 2600 H (0-900) /uL Eos # (Auto) 100 (0-450) /uL Baso # (Auto) 100 (0-100) /uL Sodium 142 (137-145) mmol/L Potassium 4.0 (3.4-5.1) mmol/L Chloride 99 (98-107) mmol/L Carbon Dioxide 30 (22-32) mmol/L BUN 21 H (7-17) mg/dL Creatinine 1.10 H (0.52-1.04) mg/dL Estimated GFR 48.2 L (>60) mL/min BUN/Creatinine Ratio 19.1 (6-22) Glucose 250 H D (80-110) mg/dL Calcium 10.0 (8.4-10.2) mg/dL Total Creatine Kinase 24 L (30-135) U/L CK-MB (CK-2) TNP CK-MB (CK-2) Rel Index TNP Troponin I < 0.012 (0.01-0.034) ng/mL Point of Care Testing Glucose POC 245 Discharge Plan Departure Patient Disposition: Home Clinical Impression: Feared complaint without diagnosis Discharge Date/Time: 07/10/19 03:18 Activity Restrictions/Additional Instructions: *You have been diagnosed with [episode of diaphoresis, no other symptoms or complaints] *What to do: *Take medications as directed *Follow up with your primary care provider in 2-3 days, call for an appointment. Let them know you were seen in the Emergency Department and that we ask that you be seen in follow up *Return to ER if you should have any new, worsening or concerning symptoms Prescriptions: No Action nitroglycerin [Nitrostat] 0.4 MG tablet, sublingual 0.4 mg Sublingual PRN PRN (Reason: Chest Pain) Qty: 0 RF: 0 ondansetron HCl 4 MG tablet 4 mg PO Q4HP PRN (Reason: Nausea) Qty: 0 RF: 0 atorvastatin 40 mg Tablet 40 mg PO BEDTIME RF: 0 potassium chloride 10 mEq Capsule, Extended Release 10 meq PO DAILY RF: 0 acetaminophen 325 mg Tablet 650 mg PO Q4H MDD 3 g PRN (Reason: pain) RF: 0 diltiazem HCl 240 mg Capsule,Extended Release 24 Hr 240 mg PO DAILY RF: 0 aspirin [Aspir-Low] 81 mg Tablet,Delayed Release (Dr/Ec) 81 mg PO DAILY RF: 0 bupropion HCl 100 mg Tablet Sustained-Release 12 Hr 100 mg PO BID RF: 0 docusate sodium 100 mg Tablet 200 mg PO BID RF: 0 aripiprazole 5 mg Tablet 2.5 mg PO DAILY RF: 0 Myrbetriq 25 mg Tablet Extended Release 24 Hr 25 mg PO DAILY RF: 0 metformin 500 mg tablet 500 mg PO QAM RF: 0 gabapentin 600 mg tablet 1,000 mg PO TID RF: 0 lidocaine [Aspercreme (lidocaine)] 4 % Adhesive Patch,Medicated 1 patch TOPICAL DAILY RF: 0 lisinopril 20 mg tablet 20 mg PO BID RF: 0 gabapentin 400 mg capsule 1,000 mg PO TID RF: 0 levothyroxine 100 mcg tablet 100 mcg PO DAILY RF: 0 furosemide 80 mg tablet 80 mg PO DAILY RF: 0 baclofen 10 mg tablet 10 mg PO [id number] RF: 0 pantoprazole 40 mg tablet,delayed release (DR/EC) 40 mg PO DAILY RF: 0 nystatin 100,000 unit/gram cream 1 applic TOPICAL BID RF: 0 lorazepam 1 mg tablet 1 mg PO BEDTIME PRN (Reason: Anxiety) RF: 0 duloxetine 30 mg Capsule,Delayed Release(Dr/Ec) 90 mg PO DAILY RF: 0 Eliquis 5 mg tablet 5 mg PO BID RF: 0 Hysingla ER 40 mg tablet,oral only,ext.rel.24 hr 40 mg PO QAM RF: 0 nystatin 100,000 unit/gram Powder 1 applic TOPICAL TID RF: 0 acetaminophen 500 mg Tablet 1,000 mg PO BID MDD 3 g RF: 0 polyethylene glycol 3350 17 gram/dose Powder 17 g PO DAILY PRN (Reason: Constipation) RF: 0 multivitamin with minerals Capsule 1 cap PO DAILY RF: 0 sennosides [senna] 8.6 mg Tablet 17.2 mg PO BID RF: 0 Lantus U-100 Insulin 100 unit/mL Solution 72 units subcut BID RF: 0 melatonin 3 mg Tablet 3 mg PO BEDTIME PRN (Reason: Insomnia) RF: 0 insulin lispro [Humalog U-100 Insulin] 100 unit/mL Solution See Rx Instructions .ROUTE .COMPLEX RF: 0 oxycodone 10 mg Tablet 10 mg PO Q6H PRN (Reason: breakthrough pain level 5-10) Qty: 40 RF: 0 Referrals: Marleny Narvaez MD [Primary Care Provider] -
[2019-07-10 00:08] LABS: Add Manual Diff / Slide Review NO; Basophils Absolute Auto 100 /uL (0-100); Basophils Percent Auto 1.2 % (0-2); Eosinophils Absolute Auto 100 /uL (0-450); Eosinophils Percent Auto 0.6 % (2-4); Hematocrit 44.8 % (36-46); Hemoglobin 14.6 g/dL (12.0-16.0); Lymphocytes Absolute Auto 2600 /uL (1100-4500); Lymphocytes Percent Auto 23.4 % (25-40); Mean Corpuscular HGB Conc 32.6 % (30-36); Mean Corpuscular Hemoglobin 31.3 PG (26-34); Mean Corpuscular Volume 96.2 fL (80-100); Monocytes Absolute Auto 2600 /uL (0-900); Monocytes Percent Auto 22.8 % (3-14); Neutrophils Absolute Auto 5900 /uL (1500-7000); Platelet Count 216 X10^3/uL (150-400); Red Blood Cell Count 4.66 X10^6/uL (4.0-5.2); Red Cell Distribution Width 15.3 % (11.6-14.8); White Blood Cell Count 11.2 X10^3/uL (4.5-11.0)
[2019-07-10 00:13] LABS: BUN Creatinine Ratio 19.1 (6-22); Blood Urea Nitrogen 21 mg/dL (7-17); Carbon Dioxide 30 mmol/L (22-32); Chloride 99 mmol/L (98-107); Creatine Kinase 24 U/L (30-135); Estimated Glomerular Filt Rate 48.2 mL/min (>60); Glucose 250 mg/dL (80-110); HEMOLYSIS < 15 (0-50); Sodium 142 mmol/L (137-145)
[2019-07-10 00:25] LABS: Troponin I < 0.012 ng/mL (0.01-0.034)
[2019-07-10 00:59] VITALS: PULSE 64; RESP 15; O2SAT 94
[2019-07-10 01:05] VITALS: BP 131/70; PULSE 63; RESP 21; O2SAT 96
== END 2019-07-10 03:18 | disposition home or self-care (01) ==
PROVIDERS: Emergency Provider Emergency Medicine; PCP Internal Medicine
DX: R41.82 Altered mental status, unspecified (principal)
CPT/HCPCS: 36415; 80048; 82550; 82553; 82962; 84484; 85025; 93005; 99284

== ENCOUNTER → 2019-07-14 16:15 | Outpatient (ROUT) | payer MEDICARE, OTHER, MEDICAID, SELFPAY ==
[2019-07-07 15:23] VITALS: BMI 51.9
[2019-07-14 16:17] LABS: RBC Urine None Seen (0-5/HPF)
[2019-07-14 16:47] LABS: Appearance Urine UA SL CLOUDY; Bilirubin Urine UA NEGATIVE (NEGATIVE); Color Urine UA YELLOW; Glucose Urine UA TRACE g/dL (Negative); Ketones Urine UA NEGATIVE (NEGATIVE); Leukocyte Esterase Urine UA 1+ (NEGATIVE); Nitrite Urine UA NEGATIVE (Negative); Occult Blood Urine UA NEGATIVE (Negative); Protein Urine UA NEGATIVE (Negative); Specific Gravity Urine UA 1.015 (1.000-1.035); Urobilinogen Urine UA 0.2 E.U./dL (0.2)
[2019-07-14 17:37] LABS: Amorphous Sediment Urine 1+; Bacteria Urine Many (>30); Culture Indicated Urine Specimen Cultured; Squamous Epithelial Cell Urine 0-1 /HPF (0-5/HPF); WBC Urine 10-30/HPF (0-5/HPF)
== END ==
PROVIDERS: PCP Internal Medicine; Visit Provider Registered Nurse
DX: M54.9 Dorsalgia, unspecified (principal)
CPT/HCPCS: 81001; 87077; 87086; 87186

== ENCOUNTER → 2019-07-16 07:42 | Outpatient (ROUT) | payer MEDICARE, OTHER, MEDICAID, SELFPAY ==
[2019-07-07 15:23] VITALS: BMI 51.9
[2019-07-16 08:36] LABS: Add Manual Diff / Slide Review NO; Basophils Absolute Auto 0 /uL (0-100); Basophils Percent Auto 0.3 % (0-2); Eosinophils Absolute Auto 0 /uL (0-450); Eosinophils Percent Auto 0.5 % (2-4); Hematocrit 40.4 % (36-46); Hemoglobin 13.3 g/dL (12.0-16.0); Lymphocytes Absolute Auto 2400 /uL (1100-4500); Lymphocytes Percent Auto 24.3 % (25-40); Mean Corpuscular HGB Conc 32.9 % (30-36); Mean Corpuscular Hemoglobin 31.3 PG (26-34); Mean Corpuscular Volume 95.1 fL (80-100); Monocytes Absolute Auto 2500 /uL (0-900); Neutrophils Absolute Auto 4700 /uL (1500-7000); Neutrophils Percent Auto 48.9 % (50-75); Platelet Count 195 X10^3/uL (150-400); Red Blood Cell Count 4.25 X10^6/uL (4.0-5.2); Red Cell Distribution Width 15.1 % (11.6-14.8); White Blood Cell Count 9.7 X10^3/uL (4.5-11.0)
[2019-07-16 08:48] LABS: BUN Creatinine Ratio 23.8 (6-22); Blood Urea Nitrogen 19 mg/dL (7-17); Calcium 9.5 mg/dL (8.4-10.2); Carbon Dioxide 32 mmol/L (22-32); Chloride 99 mmol/L (98-107); Estimated Glomerular Filt Rate > 60.0 mL/min (>60); Glucose 163 mg/dL (80-110); HEMOLYSIS < 15 (0-50); Potassium 3.8 mmol/L (3.4-5.1); Sodium 141 mmol/L (137-145)
[2019-07-16 09:18] LABS: Cancer Antigen 125 < 6 U/mL (0-35)
== END ==
PROVIDERS: PCP Internal Medicine; Visit Provider Nurse Practitioner Family
DX: R61 Generalized hyperhidrosis (principal); E27.8 Other specified disorders of adrenal gland
CPT/HCPCS: 36415; 80048; 85025; 86304

== ENCOUNTER → 2019-07-23 07:42 | Outpatient (ROUT) | payer MEDICARE, OTHER, MEDICAID, SELFPAY ==
[2019-07-07 15:23] VITALS: BMI 51.9
[2019-07-23 09:49] LABS: Thyroid Stimulating Hormone 4.43 uIU/mL (0.47-4.68)
== END ==
PROVIDERS: PCP Internal Medicine; Visit Provider Nurse Practitioner Family
DX: E03.9 Hypothyroidism, unspecified (principal)
CPT/HCPCS: 36415; 84443

== ENCOUNTER → 2019-10-13 09:34 | Outpatient (ROUT) | payer MEDICARE, OTHER, MEDICAID, SELFPAY ==
[2019-07-07 15:23] VITALS: BMI 51.9
[2019-10-13 10:16] LABS: Hemoglobin A1C% w Est Avg Glu 8.7 % (4.0-6.0)
[2019-10-13 10:23] LABS: Alanine Aminotransferase 27 IU/L (<35); Albumin 3.8 g/dL (3.5-5.0); Albumin Globulin Ratio 1.1 (1.0-2.8); Alkaline Phosphatase 73 U/L (38-126); Aspartate Aminotransferase 29 IU/L (14-36); BUN Creatinine Ratio 19.5 (6-22); Bilirubin Total 0.5 mg/dL (0.2-1.3); Blood Urea Nitrogen 17 mg/dL (7-17); Calcium 9.1 mg/dL (8.4-10.2); Carbon Dioxide 34 mmol/L (22-32); Chloride 97 mmol/L (98-107); Cholesterol 139 mg/dL (140-199); Estimated Glomerular Filt Rate > 60.0 mL/min (>60); Globulin 3.4 g/dL (1.7-4.1); Glucose 144 mg/dL (80-110); HDL Cholesterol 24 mg/dL (40-60); HEMOLYSIS < 15 (0-50); LDL Cholesterol Calculated 75 mg/dL (<100); Potassium 3.7 mmol/L (3.4-5.1); Sodium 139 mmol/L (137-145); Total Protein 7.2 g/dL (6.3-8.2); Triglycerides 200 mg/dL (35-150)
== END ==
PROVIDERS: PCP Internal Medicine; Visit Provider Nurse Practitioner Family
DX: E11.9 Type 2 diabetes mellitus without complications (principal); E78.5 Hyperlipidemia, unspecified; I95.9 Hypotension, unspecified
CPT/HCPCS: 36415; 80053; 80061; 83036

== ENCOUNTER → 2020-01-28 08:34 | Outpatient (ROUT) | payer MEDICARE, OTHER, MEDICAID, SELFPAY ==
[2019-07-07 15:23] VITALS: BMI 51.9
[2020-01-28 09:03] LABS: Add Manual Diff / Slide Review NO; Basophils Absolute Auto 0 /uL (0-100); Basophils Percent Auto 0.4 % (0-2); Eosinophils Absolute Auto 100 /uL (0-450); Eosinophils Percent Auto 0.8 % (2-4); Hemoglobin 13.1 g/dL (12.0-16.0); Lymphocytes Absolute Auto 2400 /uL (1100-4500); Mean Corpuscular HGB Conc 32.7 % (30-36); Mean Corpuscular Hemoglobin 31.5 PG (26-34); Mean Corpuscular Volume 96.5 fL (80-100); Monocytes Absolute Auto 2200 /uL (0-900); Monocytes Percent Auto 23.8 % (3-14); Neutrophils Absolute Auto 4500 /uL (1500-7000); Platelet Count 199 X10^3/uL (150-400); Red Blood Cell Count 4.15 X10^6/uL (4.0-5.2); White Blood Cell Count 9.1 X10^3/uL (4.5-11.0)
[2020-01-28 09:20] LABS: BUN Creatinine Ratio 17.8 (6-22); Blood Urea Nitrogen 16 mg/dL (7-17); Calcium 9.2 mg/dL (8.4-10.2); Carbon Dioxide 33 mmol/L (22-32); Chloride 98 mmol/L (98-107); Estimated Glomerular Filt Rate > 60.0 mL/min (>60); Glucose 169 mg/dL (80-110); HEMOLYSIS < 15 (0-50); Potassium 4.1 mmol/L (3.4-5.1); Sodium 138 mmol/L (137-145)
[2020-01-28 09:23] LABS: Hemoglobin A1C% w Est Avg Glu 8.6 % (4.0-6.0)
[2020-01-28 09:45] LABS: Thyroid Stimulating Hormone 2.56 uIU/mL (0.47-4.68)
== END ==
PROVIDERS: PCP Internal Medicine; Visit Provider Nurse Practitioner Family
DX: E11.9 Type 2 diabetes mellitus without complications (principal)
CPT/HCPCS: 36415; 80048; 83036; 84443; 85025

== ENCOUNTER → 2020-04-22 21:09 | Outpatient (ROUT) | payer MEDICARE, OTHER, SELFPAY ==
[2019-07-07 15:23] VITALS: BMI 51.9
== END ==
PROVIDERS: PCP Internal Medicine; Visit Provider Internal Medicine
DX: L72.0 Epidermal cyst (principal)
CPT/HCPCS: 87070; 87075; 87077; 87147; 87186; 87205

== ENCOUNTER → 2020-06-07 08:14 | Outpatient (ROUT) | payer MEDICARE, OTHER, SELFPAY ==
[2020-06-03 11:05] VITALS: BMI 51.9
[2020-06-07 08:47] LABS: Hemoglobin A1C% w Est Avg Glu 7.5 % (4.0-6.0)
[2020-06-07 08:48] LABS: Add Manual Diff / Slide Review NO; Alanine Aminotransferase 15 IU/L (<35); Albumin 3.7 g/dL (3.5-5.0); Albumin Globulin Ratio 1.1 (1.0-2.8); Alkaline Phosphatase 76 U/L (38-126); Aspartate Aminotransferase 21 IU/L (14-36); BUN Creatinine Ratio 20.4 (6-22); Basophils Absolute Auto 0 /uL (0-100); Basophils Percent Auto 0.4 % (0-2); Bilirubin Total 0.4 mg/dL (0.2-1.3); Blood Urea Nitrogen 19 mg/dL (7-17); Calcium 8.9 mg/dL (8.4-10.2); Carbon Dioxide 34 mmol/L (22-32); Chloride 100 mmol/L (98-107); Eosinophils Absolute Auto 100 /uL (0-450); Eosinophils Percent Auto 0.6 % (2-4); Estimated Glomerular Filt Rate 58.3 mL/min (>60); Globulin 3.3 g/dL (1.7-4.1); Glucose 113 mg/dL (80-110); HEMOLYSIS < 15 (0-50); Hematocrit 39.4 % (36-46); Hemoglobin 12.7 g/dL (12.0-16.0); Lymphocytes Absolute Auto 2400 /uL (1100-4500); Mean Corpuscular HGB Conc 32.3 % (30-36); Mean Corpuscular Hemoglobin 31.2 PG (26-34); Mean Corpuscular Volume 96.5 fL (80-100); Monocytes Absolute Auto 2300 /uL (0-900); Monocytes Percent Auto 26.2 % (3-14); Neutrophils Absolute Auto 4000 /uL (1500-7000); Neutrophils Percent Auto 45.8 % (50-75); Platelet Count 219 X10^3/uL (150-400); Potassium 3.7 mmol/L (3.4-5.1); Red Blood Cell Count 4.08 X10^6/uL (4.0-5.2); Red Cell Distribution Width 14.3 % (11.6-14.8); Sodium 140 mmol/L (137-145); White Blood Cell Count 8.8 X10^3/uL (4.5-11.0)
[2020-06-07 09:19] LABS: Thyroid Stimulating Hormone 2.66 uIU/mL (0.47-4.68)
[2020-06-07 09:36] LABS: Vitamin B12 779 pg/mL (239-931)
== END ==
PROVIDERS: Visit Provider Internal Medicine
DX: F32.9 Major depressive disorder, single episode, unspecified (principal); E11.9 Type 2 diabetes mellitus without complications
CPT/HCPCS: 36415; 80053; 82607; 83036; 84443; 85025

== ENCOUNTER → 2020-08-15 20:42 | Outpatient (ROUT) | payer MEDICARE, OTHER, SELFPAY ==
[2020-06-03 11:05] VITALS: BMI 51.9
== END ==
PROVIDERS: Visit Provider Internal Medicine
DX: L05.91 Pilonidal cyst without abscess (principal)
CPT/HCPCS: 87070; 87075; 87077; 87186; 87205

== ENCOUNTER 2020-08-20 13:50 | Emergency (ER) | payer MEDICARE, OTHER, MEDICAID, SELFPAY ==
[2020-06-03 11:05] VITALS: BMI 51.9
[2020-08-20 14:01] VITALS: BP 166/73; PULSE 77; RESP 20; TEMP 36; BMI 48.7
--- NOTE | 2020-08-20 14:11 | DI.RAD.S_ITS ---
PROCEDURE: XR KNEE RT 3V INDICATIONS: fall with right knee pain TECHNIQUE: 2 views of the knee were acquired. COMPARISON: [facility], CR, XR KNEE LT 3V, 04/02/2018, 11:27. FINDINGS: Bones: No fractures or dislocations. No suspicious bony lesions. Knee arthroplasty is present without evidence of hardware fracture or periprosthetic loosening. Soft tissues: No joint effusion. No suspicious soft tissue calcifications. IMPRESSION: No visualized acute fracture or dislocation. However, if clinical concern and/or pain persist, short interval imaging followup in 7-10 days is recommended, as occult injury cannot be definitively excluded. Dictated by: Trinity Moncada M.D. on 08/20/2020 at 15:08 Approved by: Trinity Moncada M.D. on 08/20/2020 at 15:08
[2020-08-20 14:46] VITALS: BP 141/70; PULSE 79
--- NOTE | 2020-08-20 14:47 | PC.NURSE ---
patient is wheelchair bound and transferes with [facility]man only. [facility] with [facility] lift in preperation for xrays
[2020-08-20 14:53] VITALS: BP 141/70; PULSE 77; RESP 16; TEMP 36.8
--- NOTE | 2020-08-20 16:18 | ED.FALL ---
HPI - Fall General Chief Complaint: Fall Stated Complaint: FALL /RIGHT KNEE PAIN Time Seen by Provider: 08/20/20 16:18 Source: patient Mode of arrival: Wheelchair Limitations: no limitations History of Present Illness HPI Narrative: This is a 79-year-old female, diabetes and recent TIA who comes with complaint of right knee pain. Patient states today while in her wheelchair her legs got tangled in the wheel and was twisted. She states she did not fall but she has pain in the right knee. Patient states she has pain with movement. She denies numbness or tingling. She denies any other current injury. She had some Tylenol here in the department which she states was minimally helpful. Patient denies any other current symptoms. She states she is wheelchair-bound and does not ambulate. Related Data Home Medications Medication Instructions Recorded Confirmed nitroglycerin [Nitrostat] 0.4 mg SUBLINGUAL PRN PRN #0 07/05/16 07/07/20 ondansetron HCl 4 mg PO Q4HP PRN #0 04/08/17 07/07/20 nystatin 1 applic TOPICAL TID 12/04/17 07/07/20 Myrbetriq 25 mg PO DAILY 04/03/18 07/07/20 acetaminophen 650 mg PO Q4H PRN MDD 3 g 04/03/18 07/07/20 aripiprazole 2.5 mg PO DAILY 04/03/18 07/07/20 aspirin [Aspir-Low] 81 mg PO DAILY 04/03/18 07/07/20 atorvastatin 40 mg PO BEDTIME 04/03/18 07/07/20 diltiazem HCl 240 mg PO DAILY 04/03/18 07/07/20 docusate sodium 200 mg PO BID 04/03/18 07/07/20 potassium chloride 10 meq PO DAILY 04/03/18 07/07/20 acetaminophen 1,000 mg PO BID MDD 3 g 04/14/18 07/07/20 Lantus U-100 Insulin 72 units SUBCUT BID 06/06/18 07/07/20 insulin lispro [Humalog U-100 See Rx Instructions .ROUTE .COMPLEX 06/06/18 07/07/20 Insulin] melatonin 3 mg PO BEDTIME PRN 06/06/18 07/07/19 multivitamin with minerals 1 cap PO DAILY 06/06/18 07/07/20 polyethylene glycol 3350 17 g PO DAILY PRN 06/06/18 07/07/20 sennosides [senna] 17.2 mg PO BID 06/06/18 07/07/20 Eliquis 5 mg PO BID 07/07/19 07/07/20 Hysingla ER 40 mg PO QAM 07/07/19 07/07/20 baclofen 10 mg PO [id number] 07/07/19 07/07/20 duloxetine 90 mg PO DAILY 07/07/19 07/07/20 furosemide 80 mg PO DAILY 07/07/19 07/07/20 gabapentin 1,000 mg PO TID 07/07/19 07/07/20 gabapentin 1,000 mg PO TID 07/07/19 07/07/20 levothyroxine 100 mcg PO DAILY 07/07/19 07/07/20 lidocaine [Aspercreme (lidocaine)] 1 patch TOPICAL DAILY 07/07/19 07/07/20 lisinopril 20 mg PO BID 07/07/19 07/07/20 lorazepam 1 mg PO BEDTIME PRN 07/07/19 07/07/20 metformin 500 mg PO QAM 07/07/19 07/07/20 nystatin 1 applic TOPICAL BID 07/07/19 07/07/20 pantoprazole 40 mg PO DAILY 07/07/19 07/07/20 bupropion HCl 100 mg tablet,12 hr 100 mg PO BID 07/07/20 07/07/20 sustained-release Previous Rx's Medication Instructions Recorded oxycodone 10 mg PO Q6H PRN #40 tab 11/29/18 hydrocodone-acetaminophen 1 tab PO QID PRN #10 tab 08/20/20 Allergies Allergy/AdvReac Type Severity Reaction Status Date / Time adhesive [ADHESIVE] Allergy Mild ALLERGY TO Verified 07/07/19 11:12 TAPE Review of Systems Review of Systems ROS Unobtainable: All systems reviewed & are unremarkable except as noted in HPI and below Patient History Medical History (Updated 08/20/20 @ 16:41 by Harmony Layton DO) Anemia Atherosclerotic heart disease of [place] coronary artery without angina pectoris Atrial fibrillation Chronic kidney disease, stage 3 Chronic pain syndrome Diabetes Gastroesophageal reflux disease Hereditary and idiopathic neuropathy, unspecified Hyperlipidemia Hypertension Hypertensive chronic kidney disease with stage 1 through stage 4 chronic kidney disease, or unspecified chronic kidney disease Hypothyroidism 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 Major depressive disorder Obesity Obstructive sleep apnea Urinary incontinence Venous insufficiency (chronic) (peripheral) Wheelchair bound Surgical History History of bilateral knee replacement Family History Father Stroke Mother Cancer Other Family history non-contributory Social History household members: caregiver Smoking Status: Former smoker alcohol intake: former Smoking Status: Former smoker alcohol intake frequency: 0-2 drinks per day Substance Use Type: does not use Exam Narrative Exam Narrative: GENERAL: Alert and oriented x three, elevated BMI, mildly distressed female HEENT: Head normocephalic, atraumatic, EOMI, pupils reactive, face symmetric, moist mucous membranes NECK: Supple, full range of motion CARDIOVASCULAR: Regular rate and rhythm without murmurs, rubs or gallops. RESPIRATORY: Breath sounds equal bilaterally, no wheezes rales or rhonchi. ABDOMEN: Soft, nontender. Normoactive bowel sounds all 4 quadrants. No guarding or rebound, rigidity, no mass EXTREMITIES: Decreased range of motion, patient has pain with palpation over the patella and right knee but no discrete bony tenderness that is localized. I do not appreciate any swelling right comparison to left. There is no warmth or erythema. There is no ecchymosis. Patient has no joint laxity testing. Patient has normal sensation bilateral lower extremities. Cap refill is equal bilateral lower extremities. Patient does not have any additional bony tenderness with palpation of the right lower extremity. NEUROLOGICAL: Cranial nerves II through XII grossly intact. Moving all extremities SKIN: Warm, dry, no petechiae, no rashes or lesions. Initial Vital Signs Initial Vital Signs: Vital Signs Temperature 96.8 F L 08/20/20 14:01 Pulse Rate 77 08/20/20 14:01 Respiratory Rate 20 08/20/20 14:01 Blood Pressure 166/73 H 08/20/20 14:01 Course Orders Ordered: ED Orders 08/20/20 14:11 XR knee RT 3V Stat Discontinued Medications Oxycodone HCl (Oxycodone Ir 5 Mg Tablet) 5 mg PO NOW ONE Stop: 08/20/20 16:37 Last Admin: 08/20/20 16:42 Dose: 5 mg Documented by: PADMINI Vital Signs Vital signs: Vital Signs - 8 hr 08/20/20 14:01 08/20/20 14:46 08/20/20 14:53 Temperature 96.8 F L 98.2 F Pulse Rate 77 79 77 Respiratory Rate 20 16 Blood Pressure 166/73 H 141/70 H 141/70 H Pulse Oximetry 08/20/20 17:22 Temperature Pulse Rate 81 Respiratory Rate 22 Blood Pressure 128/82 Pulse Oximetry 98 MDM - Fall Imaging Data Extremity x-ray #1: Radiologist's Impression: [place] [id number] [place] [id number] ReportSigned Patient: Elena Danielson RMR#: [id number]: [id number]/Sex: 79 / FDate of Service: 08/20/20Loc: EDAccession Number: [id number] Procedure: XR knee RT 3V Ordering Provider: Harmony Layton D.O. PROCEDURE: XR KNEE RT 3V INDICATIONS: fall with right knee pain TECHNIQUE: 2 views of the knee were acquired. COMPARISON: [facility], , XR KNEE LT 3V, 04/02/2018, 11:27. FINDINGS: Bones: No fractures or dislocations. No suspicious bony lesions. Knee arthroplasty is present without evidence of hardware fracture or periprosthetic loosening. Soft tissues: No joint effusion. No suspicious soft tissue calcifications. IMPRESSION: No visualized acute fracture or dislocation. However, if clinical concern and/or pain persist, short interval imaging followup in 7-10 days is recommended, as occult injury cannot be definitively excluded. Dictated by: Trinity Moncada M.D. on 08/20/2020 at 15:08 Approved by: Trinity Moncada M.D. on 08/20/2020 at 15:08 [facility] Narrative Medical decision making narrative: 79-year-old female with mechanical twisting injury to her right leg after being caught up in her wheelchair. There was no fall. Patient has pain in her right knee. She had minimal improvement with Tylenol and was given a dose oxycodone here in the department. Plan for conservative management we did discuss she could have internal derangement, tendon or ligament injury. She has no clear bony tenderness on exam or x-ray. Plan was discussed with patient she is comfortable with this. She is typically nonweightbearing and only uses a wheelchair. Discharge Plan Departure Patient Disposition: Home Clinical Impression: Injury of knee, right Instructions: DI for Knee Pain Activity Restrictions/Additional Instructions: Follow-up with your physician next week if your symptoms are not improving. If you are continuing to have symptoms in 7-10 days follow-up with her primary care for repeat evaluation and imaging. I would recommend Thomas wrap as needed for compression. You may take [place] 1 tablet every 6 hours as needed for pain. Do not take if your taking [place] but you may take Tylenol instead of [place]. This medication can make you sleepy do not drive, perform hazardous activities or make any major decisions while taking it this medication will make you constipated take a stool softener such as Colace 1 or 2 times daily until stools are soft and regular. Please return for fevers, increasing pain, redness or swelling of the knee, new numbness, tingling or weakness or other new or concerning symptoms. Prescriptions: New hydrocodone-acetaminophen 5-325 mg tablet 1 tab PO QID PRN (Reason: pain) Qty: 10 RF: 0 No Action nitroglycerin [Nitrostat] 0.4 MG tablet, sublingual 0.4 mg Sublingual PRN PRN (Reason: Chest Pain) Qty: 0 RF: 0 ondansetron HCl 4 MG tablet 4 mg PO Q4HP PRN (Reason: Nausea) Qty: 0 RF: 0 atorvastatin 40 mg Tablet 40 mg PO BEDTIME RF: 0 potassium chloride 10 mEq Capsule, Extended Release 10 meq PO DAILY RF: 0 acetaminophen 325 mg Tablet 650 mg PO Q4H MDD 3 g PRN (Reason: pain) RF: 0 diltiazem HCl 240 mg Capsule,Extended Release 24 Hr 240 mg PO DAILY RF: 0 aspirin [Aspir-Low] 81 mg Tablet,Delayed Release (Dr/Ec) 81 mg PO DAILY RF: 0 docusate sodium 100 mg Tablet 200 mg PO BID RF: 0 aripiprazole 5 mg Tablet 2.5 mg PO DAILY RF: 0 Myrbetriq 25 mg Tablet Extended Release 24 Hr 25 mg PO DAILY RF: 0 bupropion HCl 100 mg tablet sustained-release 12 hr 100 mg PO BID RF: 0 metformin 500 mg tablet 500 mg PO QAM RF: 0 gabapentin 600 mg tablet 1,000 mg PO TID RF: 0 lidocaine [Aspercreme (lidocaine)] 4 % Adhesive Patch,Medicated 1 patch TOPICAL DAILY RF: 0 lisinopril 20 mg tablet 20 mg PO BID RF: 0 gabapentin 400 mg capsule 1,000 mg PO TID RF: 0 levothyroxine 100 mcg tablet 100 mcg PO DAILY RF: 0 furosemide 80 mg tablet 80 mg PO DAILY RF: 0 baclofen 10 mg tablet 10 mg PO [id number] RF: 0 pantoprazole 40 mg tablet,delayed release (DR/EC) 40 mg PO DAILY RF: 0 nystatin 100,000 unit/gram cream 1 applic TOPICAL BID RF: 0 lorazepam 1 mg tablet 1 mg PO BEDTIME PRN (Reason: Anxiety) RF: 0 duloxetine 30 mg Capsule,Delayed Release(Dr/Ec) 90 mg PO DAILY RF: 0 Eliquis 5 mg tablet 5 mg PO BID RF: 0 Hysingla ER 40 mg tablet,oral only,ext.rel.24 hr 40 mg PO QAM RF: 0 nystatin 100,000 unit/gram Powder 1 applic TOPICAL TID RF: 0 acetaminophen 500 mg Tablet 1,000 mg PO BID MDD 3 g RF: 0 polyethylene glycol 3350 17 gram/dose Powder 17 g PO DAILY PRN (Reason: Constipation) RF: 0 multivitamin with minerals Capsule 1 cap PO DAILY RF: 0 sennosides [senna] 8.6 mg Tablet 17.2 mg PO BID RF: 0 Lantus U-100 Insulin 100 unit/mL Solution 72 units subcut BID RF: 0 melatonin 3 mg Tablet 3 mg PO BEDTIME PRN (Reason: Insomnia) RF: 0 insulin lispro [Humalog U-100 Insulin] 100 unit/mL Solution See Rx Instructions .ROUTE .COMPLEX RF: 0 oxycodone 10 mg Tablet 10 mg PO Q6H PRN (Reason: breakthrough pain level 5-10) Qty: 40 RF: 0
[2020-08-20] MEDS: OXYCODONE IR 5 MG TABLET PO (16:42)
[2020-08-20 17:22] VITALS: BP 128/82; PULSE 81; RESP 22; O2SAT 98
== END 2020-08-20 17:25 | disposition home or self-care (01) ==
PROVIDERS: Emergency Provider Emergency Medicine
DX: S89.91XA Unspecified injury of right lower leg, initial encounter (principal); W23.0XXA Caught, crushed, jammed, or pinched between moving objects, initial encounter
CPT/HCPCS: 73562; 99283

== ENCOUNTER 2020-08-21 17:14 | Inpatient (IN) | payer MEDICARE, OTHER, SELFPAY ==
[2020-06-03 11:05] VITALS: BMI 51.9
[2020-08-21] VITALS (16 sets, daily range): BP systolic 133–153; BP diastolic 59–82; PULSE 73–82; RESP 18; TEMP 36.6–36.8; O2SAT 87–95
--- NOTE | 2020-08-21 17:40 | DI.CT.S_ITS ---
PROCEDURE: CT HEAD/BRAIN WO CON INDICATIONS: altered mental status, low O2 TECHNIQUE: Noncontrast 4.5 mm thick angled axial sections acquired from the foramen magnum to the vertex, with coronal and sagittal reformats. For radiation dose reduction, the following was used: automated exposure control, adjustment of mA and/or kV according to patient size. COMPARISON: [facility], CT, CT HEAD/BRAIN WO CON, 03/15/2019, 9:32. FINDINGS: Image quality: Excellent. CSF spaces: Basal cisterns are patent. No extra-axial fluid collections. The ventricles are symmetric in size and shape. Brain: No intracranial bleeds or masses. There is cerebral volume loss for age, with resultant ventricular and sulcal prominence. There are periventricular and deep white matter chronic small vessel ischemic changes. There is intracranial internal carotid artery atherosclerosis. Skull and face: Calvarium and visualized facial bones appear intact, without suspicious lesions. Sinuses: Visualized sinuses and mastoids are clear. IMPRESSION: Suboptimal evaluation secondary to asymmetric patent positioning. No gross acute intracranial abnormality identified. Dictated by: Renzo David M.D. on 08/21/2020 at 18:15 Approved by: Renzo David M.D. on 08/21/2020 at 18:22
--- NOTE | 2020-08-21 17:43 | DI.RAD.S_ITS ---
PROCEDURE: XR CHEST 1V INDICATIONS: altered mental status, low O2 TECHNIQUE: One view of the chest was acquired. COMPARISON: [facility], CR, XR CHEST FOR PICC 1V, 11/26/2018, 17:54. FINDINGS: Surgical changes and devices: None. Patchy retrocardiac opacities No pleural effusions or pneumothorax. Mediastinum: Mediastinal contours appear normal. Heart size is normal. Bones and chest wall: No suspicious bony lesions. Overlying soft tissues appear unremarkable. IMPRESSION: Patchy retrocardiac opacities and low lung volumes. This could reflect aspiration/atelectasis versus pneumonia. If there is persistent clinical diagnostic uncertainty, continued surveillance with short interval chest radiographs after treatment is recommended. Dictated by: Renzo David M.D. on 08/21/2020 at 18:28 Approved by: Renzo David M.D. on 08/21/2020 at 18:29
--- NOTE | 2020-08-21 18:10 | ED_ITS ---
HPI - SOB/Dyspnea General Chief Complaint: Shortness of Breath/Dyspnea Stated Complaint: hypoxia Time Seen by Provider: 08/21/20 17:40 Source: patient and EMS Mode of arrival: EMS Limitations: no limitations Related Data Home Medications Medication Instructions Recorded Confirmed nitroglycerin [Nitrostat] 0.4 mg SUBLINGUAL PRN PRN #0 07/05/16 07/07/20 ondansetron HCl 4 mg PO Q4HP PRN #0 04/08/17 07/07/20 nystatin 1 applic TOPICAL TID 12/04/17 07/07/20 Myrbetriq 25 mg PO DAILY 04/03/18 07/07/20 acetaminophen 650 mg PO Q4H PRN MDD 3 g 04/03/18 07/07/20 aripiprazole 2.5 mg PO DAILY 04/03/18 07/07/20 aspirin [Aspir-Low] 81 mg PO DAILY 04/03/18 07/07/20 atorvastatin 40 mg PO BEDTIME 04/03/18 07/07/20 diltiazem HCl 240 mg PO DAILY 04/03/18 07/07/20 docusate sodium 200 mg PO BID 04/03/18 07/07/20 potassium chloride 10 meq PO DAILY 04/03/18 07/07/20 acetaminophen 1,000 mg PO BID MDD 3 g 04/14/18 07/07/20 Lantus U-100 Insulin 72 units SUBCUT BID 06/06/18 07/07/20 insulin lispro [Humalog U-100 See Rx Instructions .ROUTE .COMPLEX 06/06/18 07/07/20 Insulin] melatonin 3 mg PO BEDTIME PRN 06/06/18 07/07/19 multivitamin with minerals 1 cap PO DAILY 06/06/18 07/07/20 polyethylene glycol 3350 17 g PO DAILY PRN 06/06/18 07/07/20 sennosides [senna] 17.2 mg PO BID 06/06/18 07/07/20 Eliquis 5 mg PO BID 07/07/19 07/07/20 Hysingla ER 40 mg PO QAM 07/07/19 07/07/20 baclofen 10 mg PO [id number] 07/07/19 07/07/20 duloxetine 90 mg PO DAILY 07/07/19 07/07/20 furosemide 80 mg PO DAILY 07/07/19 07/07/20 gabapentin 1,000 mg PO TID 07/07/19 07/07/20 gabapentin 1,000 mg PO TID 07/07/19 07/07/20 levothyroxine 100 mcg PO DAILY 07/07/19 07/07/20 lidocaine [Aspercreme (lidocaine)] 1 patch TOPICAL DAILY 07/07/19 07/07/20 lisinopril 20 mg PO BID 07/07/19 07/07/20 lorazepam 1 mg PO BEDTIME PRN 07/07/19 07/07/20 metformin 500 mg PO QAM 07/07/19 07/07/20 nystatin 1 applic TOPICAL BID 07/07/19 07/07/20 pantoprazole 40 mg PO DAILY 07/07/19 07/07/20 bupropion HCl 100 mg tablet,12 hr 100 mg PO BID 07/07/20 07/07/20 sustained-release Previous Rx's Medication Instructions Recorded oxycodone 10 mg PO Q6H PRN #40 tab 11/29/18 hydrocodone-acetaminophen 1 tab PO QID PRN #10 tab 08/20/20 Allergies Allergy/AdvReac Type Severity Reaction Status Date / Time adhesive [ADHESIVE] Allergy Mild ALLERGY TO Verified 08/21/20 17:15 TAPE Patient History Medical History (Updated 08/20/20 @ 16:41 by Harmony Layton DO) Anemia Atherosclerotic heart disease of [place] coronary artery without angina pectoris Atrial fibrillation Chronic kidney disease, stage 3 Chronic pain syndrome Diabetes Gastroesophageal reflux disease Hereditary and idiopathic neuropathy, unspecified Hyperlipidemia Hypertension Hypertensive chronic kidney disease with stage 1 through stage 4 chronic kidney disease, or unspecified chronic kidney disease Hypothyroidism Insomnia [employer] current use of anticoagulant therapy Major depressive disorder Obesity Obstructive sleep apnea Urinary incontinence Venous insufficiency (chronic) (peripheral) Wheelchair bound Surgical History History of bilateral knee replacement Family History Father Stroke Mother Cancer Other Family history non-contributory Social History household members: caregiver Smoking Status: Former smoker alcohol intake: former Smoking Status: Former smoker alcohol intake frequency: 0-2 drinks per day Substance Use Type: does not use Exam Initial Vital Signs Initial Vital Signs: Vital Signs Temperature 98.2 F 08/21/20 17:15 Pulse Rate 77 08/21/20 17:15 Respiratory Rate 18 08/21/20 17:15 Blood Pressure 134/64 08/21/20 17:15 Pulse Oximetry 94 08/21/20 17:15 Course Orders Ordered: ED Orders 08/21/20 17:40 CT head/brain wo con Stat 08/21/20 17:41 Consult to Respiratory Therapy Evaluate & Treat EKG-12 Lead Stat 08/21/20 17:43 XR chest 1V Stat 08/21/20 19:30 Complete Blood Count AUTO DIFF Stat Comprehensive Metabolic Panel Stat Magnesium Stat NT-proBNP (BNP-Adult 18+) Stat Partial Thromboplastin Time Stat Prothrombin Time INR Stat Troponin & CK Cardiac Panel Stat 08/21/20 19:39 Arterial Blood Gas Stat 08/21/20 20:08 CT angio chest PE protocol Stat Vital Signs Vital signs: Vital Signs - 8 hr 08/21/20 17:15 08/21/20 20:51 08/21/20 21:00 Temperature 98.2 F Pulse Rate 77 73 76 Respiratory Rate 18 Blood Pressure 134/64 Pulse Oximetry 94 95 94 08/21/20 21:12 Temperature Pulse Rate 75 Respiratory Rate Blood Pressure 140/82 Pulse Oximetry 95 MDM - SOB/Dyspnea Lab Data Result diagrams: 08/21/20 19:30 08/21/20 19:30 Labs: Lab Results 08/21/20 08/21/20 08/21/20 Range/Units 19:30 19:30 19:30 WBC 15.4 H (4.5-11.0) X10^3/uL RBC 4.25 (4.0-5.2) X10^6/uL Hgb 13.3 (12.0-16.0) g/dL Hct 40.3 (36-46) % MCV 94.7 (80-100) fL MCH 31.3 (26-34) PG MCHC 33.1 (30-36) % RDW 14.3 (11.6-14.8) % Plt Count 194 (150-400) X10^3/uL Neut % (Auto) Not Reportable Lymph % (Auto) Not Reportable [place] % (Auto) Not Reportable Eos % (Auto) Not Reportable Baso % (Auto) Not Reportable Lymph # (Auto) Not Reportable [place] # (Auto) Not Reportable Baso # (Auto) Not Reportable Total Counted 100 Seg Neutrophils % 58.0 (38-70) % Band Neutrophils % 2.0 L (3-7) % Lymphocytes % (Manual) 12.0 L (25-45) % Atypical Lymphs % 8.0 H ( - 0) % Monocytes % (Manual) 19.0 H (2-11) % Eosinophils % (Manual) 1.0 L (2-4) % Neutrophils # (Manual) 9240 H (4774-5558) /uL RBC Morphology Normal morphology PT 22.6 H (10.1-12.7) SECONDS INR 2.0 H (0.9-1.3) APTT 47 H D (26.4-36.2) SECONDS ABG pH (7.35-7.45) ABG pCO2 (35-45) mmHg ABG pO2 (80-100) mmHg ABG HCO3 (22-26) mmol/L ABG Total CO2 (21-31) mmol/L ABG O2 Saturation (95-100) % ABG Base Excess (-2-2) mmol/L FiO2 Sodium (137-145) mmol/L Potassium (3.4-5.1) mmol/L Chloride (98-107) mmol/L Carbon Dioxide (22-32) mmol/L BUN (7-17) mg/dL Creatinine (0.52-1.04) mg/dL Estimated GFR (>60) mL/min BUN/Creatinine Ratio (6-22) Glucose (80-110) mg/dL Calcium (8.4-10.2) mg/dL Magnesium (1.6-2.3) mg/dL Total Bilirubin (0.2-1.3) mg/dL AST (14-36) IU/L ALT (<35) IU/L Alkaline Phosphatase (38-126) U/L Total Creatine Kinase (30-135) U/L CK-MB (CK-2) CK-MB (CK-2) Rel Index Troponin I (0.01-0.034) ng/mL NT-Pro-B Natriuret Pep 1140 H (<450) pg/mL Total Protein (6.3-8.2) g/dL Albumin (3.5-5.0) g/dL Globulin (1.7-4.1) g/dL Albumin/Globulin Ratio (1.0-2.8) 08/21/20 08/21/20 08/21/20 Range/Units 19:30 19:30 19:39 WBC (4.5-11.0) X10^3/uL RBC (4.0-5.2) X10^6/uL Hgb (12.0-16.0) g/dL Hct (36-46) % MCV (80-100) fL MCH (26-34) PG MCHC (30-36) % RDW (11.6-14.8) % Plt Count (150-400) X10^3/uL Neut % (Auto) Lymph % (Auto) [place] % (Auto) Eos % (Auto) Baso % (Auto) Lymph # (Auto) [place] # (Auto) Baso # (Auto) Total Counted Seg Neutrophils % (38-70) % Band Neutrophils % (3-7) % Lymphocytes % (Manual) (25-45) % Atypical Lymphs % ( - 0) % Monocytes % (Manual) (2-11) % Eosinophils % (Manual) (2-4) % Neutrophils # (Manual) (7022-8636) /uL RBC Morphology PT (10.1-12.7) SECONDS INR (0.9-1.3) APTT (26.4-36.2) SECONDS ABG pH 7.54 H (7.35-7.45) ABG pCO2 41.5 (35-45) mmHg ABG pO2 51 L (80-100) mmHg ABG HCO3 36 H (22-26) mmol/L ABG Total CO2 37 H (21-31) mmol/L ABG O2 Saturation 90 L (95-100) % ABG Base Excess 13.0 H (-2-2) mmol/L FiO2 21 Sodium 139 (137-145) mmol/L Potassium 4.1 (3.4-5.1) mmol/L Chloride 97 L (98-107) mmol/L Carbon Dioxide 34 H (22-32) mmol/L BUN 22 H (7-17) mg/dL Creatinine 1.05 H (0.52-1.04) mg/dL Estimated GFR 50.7 L (>60) mL/min BUN/Creatinine Ratio 21.0 (6-22) Glucose 136 H (80-110) mg/dL Calcium 10.0 (8.4-10.2) mg/dL Magnesium 1.7 (1.6-2.3) mg/dL Total Bilirubin 1.1 (0.2-1.3) mg/dL AST 20 (14-36) IU/L ALT 16 (<35) IU/L Alkaline Phosphatase 82 (38-126) U/L Total Creatine Kinase 23 L (30-135) U/L CK-MB (CK-2) TNP CK-MB (CK-2) Rel Index TNP Troponin I < 0.012 (0.01-0.034) ng/mL NT-Pro-B Natriuret Pep (<450) pg/mL Total Protein 7.9 (6.3-8.2) g/dL Albumin 4.2 (3.5-5.0) g/dL Globulin 3.7 (1.7-4.1) g/dL Albumin/Globulin Ratio 1.1 (1.0-2.8) Discharge Plan Departure Prescriptions: No Action nitroglycerin [Nitrostat] 0.4 MG tablet, sublingual 0.4 mg Sublingual PRN PRN (Reason: Chest Pain) Qty: 0 RF: 0 ondansetron HCl 4 MG tablet 4 mg PO Q4HP PRN (Reason: Nausea) Qty: 0 RF: 0 atorvastatin 40 mg Tablet 40 mg PO BEDTIME RF: 0 potassium chloride 10 mEq Capsule, Extended Release 10 meq PO DAILY RF: 0 acetaminophen 325 mg Tablet 650 mg PO Q4H MDD 3 g PRN (Reason: pain) RF: 0 diltiazem HCl 240 mg Capsule,Extended Release 24 Hr 240 mg PO DAILY RF: 0 aspirin [Aspir-Low] 81 mg Tablet,Delayed Release (Dr/Ec) 81 mg PO DAILY RF: 0 docusate sodium 100 mg Tablet 200 mg PO BID RF: 0 aripiprazole 5 mg Tablet 2.5 mg PO DAILY RF: 0 Myrbetriq 25 mg Tablet Extended Release 24 Hr 25 mg PO DAILY RF: 0 bupropion HCl 100 mg tablet sustained-release 12 hr 100 mg PO BID RF: 0 metformin 500 mg tablet 500 mg PO QAM RF: 0 gabapentin 600 mg tablet 1,000 mg PO TID RF: 0 lidocaine [Aspercreme (lidocaine)] 4 % Adhesive Patch,Medicated 1 patch TOPICAL DAILY RF: 0 lisinopril 20 mg tablet 20 mg PO BID RF: 0 gabapentin 400 mg capsule 1,000 mg PO TID RF: 0 levothyroxine 100 mcg tablet 100 mcg PO DAILY RF: 0 furosemide 80 mg tablet 80 mg PO DAILY RF: 0 baclofen 10 mg tablet 10 mg PO [id number] RF: 0 pantoprazole 40 mg tablet,delayed release (DR/EC) 40 mg PO DAILY RF: 0 nystatin 100,000 unit/gram cream 1 applic TOPICAL BID RF: 0 lorazepam 1 mg tablet 1 mg PO BEDTIME PRN (Reason: Anxiety) RF: 0 duloxetine 30 mg Capsule,Delayed Release(Dr/Ec) 90 mg PO DAILY RF: 0 Eliquis 5 mg tablet 5 mg PO BID RF: 0 Hysingla ER 40 mg tablet,oral only,ext.rel.24 hr 40 mg PO QAM RF: 0 nystatin 100,000 unit/gram Powder 1 applic TOPICAL TID RF: 0 acetaminophen 500 mg Tablet 1,000 mg PO BID MDD 3 g RF: 0 polyethylene glycol 3350 17 gram/dose Powder 17 g PO DAILY PRN (Reason: Constipation) RF: 0 multivitamin with minerals Capsule 1 cap PO DAILY RF: 0 sennosides [senna] 8.6 mg Tablet 17.2 mg PO BID RF: 0 Lantus U-100 Insulin 100 unit/mL Solution 72 units subcut BID RF: 0 melatonin 3 mg Tablet 3 mg PO BEDTIME PRN (Reason: Insomnia) RF: 0 insulin lispro [Humalog U-100 Insulin] 100 unit/mL Solution See Rx Instructions .ROUTE .COMPLEX RF: 0 oxycodone 10 mg Tablet 10 mg PO Q6H PRN (Reason: breakthrough pain level 5-10) Qty: 40 RF: 0 hydrocodone-acetaminophen 5-325 mg tablet 1 tab PO QID PRN (Reason: pain) Qty: 10 RF: 0
--- NOTE | 2020-08-21 19:13 | ED.SOB ---
HPI - SOB/Dyspnea General Chief Complaint: Shortness of Breath/Dyspnea Stated Complaint: hypoxia Time Seen by Provider: 08/21/20 17:40 Source: patient and EMS Mode of arrival: EMS Limitations: no limitations History of Present Illness HPI Narrative: stroke-like symptoms.bar, anxiety, elevated BMI presents with shortness of breath and hypoxemia with new oxygen requirements. She had pulse ox dipping into the mid 80s and was sent for further evaluation. She was placed on 4L and increased SpO2 to mid 90s. She denies any dizziness, weakness, or lightheadedness. She's had no fever or chills. She denies chest pain or SOB. She denies cough, N/V/D. She was seen yesterday with a knee injury and had negative Xray and was placed on opioids. There is some question of multiple dosing of these meds, but it is unclear. She denies any blurred vision, trouble with speech, numbness, tingling, weakness or other Related Data Home Medications Medication Instructions Recorded Confirmed nitroglycerin [Nitrostat] 0.4 mg SUBLINGUAL PRN PRN #0 07/05/16 07/07/20 ondansetron HCl 4 mg PO Q4HP PRN #0 04/08/17 07/07/20 nystatin 1 applic TOPICAL TID 12/04/17 07/07/20 Myrbetriq 25 mg PO DAILY 04/03/18 07/07/20 acetaminophen 650 mg PO Q4H PRN MDD 3 g 04/03/18 07/07/20 aripiprazole 2.5 mg PO DAILY 04/03/18 07/07/20 aspirin [Aspir-Low] 81 mg PO DAILY 04/03/18 07/07/20 atorvastatin 40 mg PO BEDTIME 04/03/18 07/07/20 diltiazem HCl 240 mg PO DAILY 04/03/18 07/07/20 docusate sodium 200 mg PO BID 04/03/18 07/07/20 potassium chloride 10 meq PO DAILY 04/03/18 07/07/20 acetaminophen 1,000 mg PO BID MDD 3 g 04/14/18 07/07/20 Lantus U-100 Insulin 72 units SUBCUT BID 06/06/18 07/07/20 insulin lispro [Humalog U-100 See Rx Instructions .ROUTE .COMPLEX 06/06/18 07/07/20 Insulin] melatonin 3 mg PO BEDTIME PRN 06/06/18 07/07/19 multivitamin with minerals 1 cap PO DAILY 06/06/18 07/07/20 polyethylene glycol 3350 17 g PO DAILY PRN 06/06/18 07/07/20 sennosides [senna] 17.2 mg PO BID 06/06/18 07/07/20 Eliquis 5 mg PO BID 07/07/19 07/07/20 Hysingla ER 40 mg PO QAM 07/07/19 07/07/20 baclofen 10 mg PO [id number] 07/07/19 07/07/20 duloxetine 90 mg PO DAILY 07/07/19 07/07/20 furosemide 80 mg PO DAILY 07/07/19 07/07/20 gabapentin 1,000 mg PO TID 07/07/19 07/07/20 gabapentin 1,000 mg PO TID 07/07/19 07/07/20 levothyroxine 100 mcg PO DAILY 07/07/19 07/07/20 lidocaine [Aspercreme (lidocaine)] 1 patch TOPICAL DAILY 07/07/19 07/07/20 lisinopril 20 mg PO BID 07/07/19 07/07/20 lorazepam 1 mg PO BEDTIME PRN 07/07/19 07/07/20 metformin 500 mg PO QAM 07/07/19 07/07/20 nystatin 1 applic TOPICAL BID 07/07/19 07/07/20 pantoprazole 40 mg PO DAILY 07/07/19 07/07/20 bupropion HCl 100 mg tablet,12 hr 100 mg PO BID 07/07/20 07/07/20 sustained-release Previous Rx's Medication Instructions Recorded oxycodone 10 mg PO Q6H PRN #40 tab 11/29/18 hydrocodone-acetaminophen 1 tab PO QID PRN #10 tab 08/20/20 Allergies Allergy/AdvReac Type Severity Reaction Status Date / Time adhesive [ADHESIVE] Allergy Mild ALLERGY TO Verified 08/21/20 17:15 TAPE Review of Systems Constitutional Constitutional: Denies chills, Denies fatigue, Denies fever(s), Denies frequent falls, Reports lethargy and Denies weakness Eyes Eyes: Denies change in vision, Denies eye discharge, Denies irritation and Denies loss of vision ENT Ears, Nose, Mouth, and Throat: Denies change in voice, Denies dizziness, Denies neck pain, Denies sore throat and Denies throat swelling Cardiovascular Cardiovascular: Denies chest pain, Denies irregular heart rhythm, Denies lightheadedness, Denies palpitations, Reports dyspnea, Denies dyspnea on exertion and Denies orthopnea Respiratory Respiratory: Denies cough, Reports dyspnea, Denies dyspnea on exertion and Denies wheezing Gastrointestinal Gastrointestinal: Denies abdominal pain, Denies change in bowel habits, Denies diarrhea, Denies nausea and Denies vomiting Musculoskeletal Musculoskeletal: Denies neck pain and Denies numbness Integumentary/Breasts Skin/Breast: Denies pruritus, Denies erythema, Denies rash and Denies wounds Neurologic Neurologic: Denies behavioral changes, Denies confusion, Denies dizziness, Denies frequent falls, Denies loss of vision, Denies numbness and Denies weakness Psychiatric Psychiatric: Denies anxiety, Denies behavioral changes, Denies confusion, Denies depression, Denies homicidal ideation and Denies suicidal ideation Endocrine Endocrine: Denies fatigue, Denies flushing and Denies palpitations Hematologic/Lymphatic Hematologic/Lymphatic: Denies easy bruising Allergic/Immunologic Allergic/Immunologic: Denies urticaria, Denies throat swelling and Denies wheezing Patient History Medical History (Updated 08/21/20 @ 22:53 by Elijah Robertson DO) Anemia Atherosclerotic heart disease of [place] coronary artery without angina pectoris Atrial fibrillation Chronic kidney disease, stage 3 Chronic pain syndrome Diabetes Gastroesophageal reflux disease Hereditary and idiopathic neuropathy, unspecified Hyperlipidemia Hypertension Hypertensive chronic kidney disease with stage 1 through stage 4 chronic kidney disease, or unspecified chronic kidney disease Hypothyroidism Insomnia 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 Well-nourished, well-developed patient, in mild distress. HEAD: Atraumatic. Normocephalic. EYES: Pupils equal round and reactive. Extraocular motions intact. No scleral icterus. No injection or drainage. ENT: Nose without bleeding, purulent drainage. Throat without erythema, tonsillar hypertrophy or exudate. Airway patent. NECK: Trachea midline. Non tender CARDIOVASCULAR: Regular rate and rhythm without murmurs, gallops, or rubs. RESPIRATORY: Decreased lung sounds throughout Faint crackles in bilateral bases, no significant or obvious increased work of breathing GASTROINTESTINAL: Abdomen soft, non-tender, nondistended. EXTREMITIES: No edema or joint tenderness. BACK: Nontender without deformity or crepitance. No flank tenderness. NEURO: AOx3. SKIN: No rash or erythema of visible areas Initial Vital Signs Initial Vital Signs: Vital Signs Temperature 98.2 F 08/21/20 17:15 Pulse Rate 77 08/21/20 17:15 Respiratory Rate 18 08/21/20 17:15 Blood Pressure 134/64 08/21/20 17:15 Pulse Oximetry 94 08/21/20 17:15 Course Course Course Narrative: Patient does not normally require supplemental oxygen. She continues to require 4 L here and multiple trials to come off of supplemental oxygen resulting in rather profound hypoxemia. Her ABG notes a PO2 of 51 on room air. There is some question as to whether not she may have had an extra up opioid, however she does not have pinpoint pupils and demonstrates airspace disease on imaging. Patient requires hospitalization, antibiotics and ongoing evaluation stabilization Orders Ordered: ED Orders 08/21/20 17:40 CT head/brain wo con Stat 08/21/20 17:41 Consult to Respiratory Therapy Evaluate & Treat EKG-12 Lead Stat 08/21/20 17:43 XR chest 1V Stat 08/21/20 19:30 Complete Blood Count AUTO DIFF Stat Comprehensive Metabolic Panel Stat Magnesium Stat NT-proBNP (BNP-Adult 18+) Stat Partial Thromboplastin Time Stat Prothrombin Time INR Stat Troponin & CK Cardiac Panel Stat 08/21/20 19:39 Arterial Blood Gas Stat 08/21/20 20:08 CT angio chest PE protocol Stat 08/21/20 22:55 COVID19 - ADMIT (INTERNAL GRINDER TENDER swab/PCR) Stat Dextrose (Dextrose 50 % In Water 25 Gm/50 Ml Syringe) 25 gm IV PRN PRN PRN Reason: Hypoglycemia Insulin Aspart (Insulin Aspart 100 Unit/Ml Insuln Pen) 0 unit SUBCUT ACHS LUPILLO; Protocol Insulin Glargine (Insulin Glargine 100 Unit/Ml 3ml Pen) 72 unit SUBCUT BID LUPILLO Naloxone HCl (Naloxone 0.4 Mg/Ml Vial) 0.2 mg IV Q2MIN PRN PRN Reason: Opiate Reversal Ondansetron HCl (Ondansetron 4 Mg Odt) 4 mg PO Q8HR PRN PRN Reason: Nausea And Vomiting Oxycodone HCl (Oxycodone Ir 10 Mg Tablet) 10 mg PO Q6HR PRN PRN Reason: Pain, Severe (7-10) Discontinued Medications Furosemide (Furosemide 40 Mg/4 Ml Vial) 40 mg IV NOW ONE Stop: 08/21/20 23:00 Last Admin: 08/22/20 00:06 Dose: 40 mg Documented by: LES Ceftriaxone Sodium/Dextrose (Rocephin) 2 gm in 50 mls @ 100 mls/hr IV NOW ONE Stop: 08/21/20 23:03 Last Admin: 08/21/20 22:50 Dose: 100 mls/hr Documented by: URIEL Azithromycin 500 mg/ Dextrose 250 mls @ 250 mls/hr IV NOW ONE Stop: 08/21/20 22:35 Last Admin: 08/22/20 00:05 Dose: 250 mls/hr Documented by: LES Vital Signs Vital signs: Vital Signs - 8 hr 08/21/20 17:15 08/21/20 20:51 08/21/20 21:00 Temperature 98.2 F Pulse Rate 77 73 76 Respiratory Rate 18 Blood Pressure 134/64 Pulse Oximetry 94 95 94 08/21/20 21:12 08/21/20 21:30 08/21/20 21:31 Temperature Pulse Rate 75 77 77 Respiratory Rate Blood Pressure 140/82 153/63 H Pulse Oximetry 95 94 94 08/21/20 21:57 08/21/20 22:01 08/21/20 22:10 Temperature Pulse Rate 80 78 Respiratory Rate Blood Pressure 142/60 H Pulse Oximetry 95 93 08/21/20 22:14 08/21/20 22:31 08/21/20 22:34 Temperature Pulse Rate 80 79 Respiratory Rate Blood Pressure 140/62 Pulse Oximetry 92 93 08/21/20 23:00 08/21/20 23:01 Temperature Pulse Rate 77 78 Respiratory Rate Blood Pressure 146/71 H Pulse Oximetry 87 L 88 L MDM - SOB/Dyspnea Lab Data Result diagrams: 08/21/20 19:30 08/21/20 19:30 Labs: Lab Results 08/21/20 08/21/20 08/21/20 Range/Units 19:30 19:30 19:30 WBC 15.4 H (4.5-11.0) X10^3/uL RBC 4.25 (4.0-5.2) X10^6/uL Hgb 13.3 (12.0-16.0) g/dL Hct 40.3 (36-46) % MCV 94.7 (80-100) fL MCH 31.3 (26-34) PG MCHC 33.1 (30-36) % RDW 14.3 (11.6-14.8) % Plt Count 194 (150-400) X10^3/uL Neut % (Auto) Not Reportable Lymph % (Auto) Not Reportable [place] % (Auto) Not Reportable Eos % (Auto) Not Reportable Baso % (Auto) Not Reportable Lymph # (Auto) Not Reportable [place] # (Auto) Not Reportable Baso # (Auto) Not Reportable Total Counted 100 Seg Neutrophils % 58.0 (38-70) % Band Neutrophils % 2.0 L (3-7) % Lymphocytes % (Manual) 12.0 L (25-45) % Atypical Lymphs % 8.0 H ( - 0) % Monocytes % (Manual) 19.0 H (2-11) % Eosinophils % (Manual) 1.0 L (2-4) % Neutrophils # (Manual) 9240 H (8672-0269) /uL RBC Morphology Normal morphology PT 22.6 H (10.1-12.7) SECONDS INR 2.0 H (0.9-1.3) APTT 47 H D (26.4-36.2) SECONDS ABG pH (7.35-7.45) ABG pCO2 (35-45) mmHg ABG pO2 (80-100) mmHg ABG HCO3 (22-26) mmol/L ABG Total CO2 (21-31) mmol/L ABG O2 Saturation (95-100) % ABG Base Excess (-2-2) mmol/L FiO2 Sodium (137-145) mmol/L Potassium (3.4-5.1) mmol/L Chloride (98-107) mmol/L Carbon Dioxide (22-32) mmol/L BUN (7-17) mg/dL Creatinine (0.52-1.04) mg/dL Estimated GFR (>60) mL/min BUN/Creatinine Ratio (6-22) Glucose (80-110) mg/dL Calcium (8.4-10.2) mg/dL Magnesium (1.6-2.3) mg/dL Total Bilirubin (0.2-1.3) mg/dL AST (14-36) IU/L ALT (<35) IU/L Alkaline Phosphatase (38-126) U/L Total Creatine Kinase (30-135) U/L CK-MB (CK-2) CK-MB (CK-2) Rel Index Troponin I (0.01-0.034) ng/mL NT-Pro-B Natriuret Pep 1140 H (<450) pg/mL Total Protein (6.3-8.2) g/dL Albumin (3.5-5.0) g/dL Globulin (1.7-4.1) g/dL Albumin/Globulin Ratio (1.0-2.8) SARS-CoV-2 (PCR) (Negative) 08/21/20 08/21/20 08/21/20 Range/Units 19:30 19:30 19:39 WBC (4.5-11.0) X10^3/uL RBC (4.0-5.2) X10^6/uL Hgb (12.0-16.0) g/dL Hct (36-46) % MCV (80-100) fL MCH (26-34) PG MCHC (30-36) % RDW (11.6-14.8) % Plt Count (150-400) X10^3/uL Neut % (Auto) Lymph % (Auto) [place] % (Auto) Eos % (Auto) Baso % (Auto) Lymph # (Auto) [place] # (Auto) Baso # (Auto) Total Counted Seg Neutrophils % (38-70) % Band Neutrophils % (3-7) % Lymphocytes % (Manual) (25-45) % Atypical Lymphs % ( - 0) % Monocytes % (Manual) (2-11) % Eosinophils % (Manual) (2-4) % Neutrophils # (Manual) (1138-6519) /uL RBC Morphology PT (10.1-12.7) SECONDS INR (0.9-1.3) APTT (26.4-36.2) SECONDS ABG pH 7.54 H (7.35-7.45) ABG pCO2 41.5 (35-45) mmHg ABG pO2 51 L (80-100) mmHg ABG HCO3 36 H (22-26) mmol/L ABG Total CO2 37 H (21-31) mmol/L ABG O2 Saturation 90 L (95-100) % ABG Base Excess 13.0 H (-2-2) mmol/L FiO2 21 Sodium 139 (137-145) mmol/L Potassium 4.1 (3.4-5.1) mmol/L Chloride 97 L (98-107) mmol/L Carbon Dioxide 34 H (22-32) mmol/L BUN 22 H (7-17) mg/dL Creatinine 1.05 H (0.52-1.04) mg/dL Estimated GFR 50.7 L (>60) mL/min BUN/Creatinine Ratio 21.0 (6-22) Glucose 136 H (80-110) mg/dL Calcium 10.0 (8.4-10.2) mg/dL Magnesium 1.7 (1.6-2.3) mg/dL Total Bilirubin 1.1 (0.2-1.3) mg/dL AST 20 (14-36) IU/L ALT 16 (<35) IU/L Alkaline Phosphatase 82 (38-126) U/L Total Creatine Kinase 23 L (30-135) U/L CK-MB (CK-2) TNP CK-MB (CK-2) Rel Index TNP Troponin I < 0.012 (0.01-0.034) ng/mL NT-Pro-B Natriuret Pep (<450) pg/mL Total Protein 7.9 (6.3-8.2) g/dL Albumin 4.2 (3.5-5.0) g/dL Globulin 3.7 (1.7-4.1) g/dL Albumin/Globulin Ratio 1.1 (1.0-2.8) SARS-CoV-2 (PCR) (Negative) 08/21/20 Range/Units 22:55 WBC (4.5-11.0) X10^3/uL RBC (4.0-5.2) X10^6/uL Hgb (12.0-16.0) g/dL Hct (36-46) % MCV (80-100) fL MCH (26-34) PG MCHC (30-36) % RDW (11.6-14.8) % Plt Count (150-400) X10^3/uL Neut % (Auto) Lymph % (Auto) [place] % (Auto) Eos % (Auto) Baso % (Auto) Lymph # (Auto) [place] # (Auto) Baso # (Auto) Total Counted Seg Neutrophils % (38-70) % Band Neutrophils % (3-7) % Lymphocytes % (Manual) (25-45) % Atypical Lymphs % ( - 0) % Monocytes % (Manual) (2-11) % Eosinophils % (Manual) (2-4) % Neutrophils # (Manual) (2263-2072) /uL RBC Morphology PT (10.1-12.7) SECONDS INR (0.9-1.3) APTT (26.4-36.2) SECONDS ABG pH (7.35-7.45) ABG pCO2 (35-45) mmHg ABG pO2 (80-100) mmHg ABG HCO3 (22-26) mmol/L ABG Total CO2 (21-31) mmol/L ABG O2 Saturation (95-100) % ABG Base Excess (-2-2) mmol/L FiO2 Sodium (137-145) mmol/L Potassium (3.4-5.1) mmol/L Chloride (98-107) mmol/L Carbon Dioxide (22-32) mmol/L BUN (7-17) mg/dL Creatinine (0.52-1.04) mg/dL Estimated GFR (>60) mL/min BUN/Creatinine Ratio (6-22) Glucose (80-110) mg/dL Calcium (8.4-10.2) mg/dL Magnesium (1.6-2.3) mg/dL Total Bilirubin (0.2-1.3) mg/dL AST (14-36) IU/L ALT (<35) IU/L Alkaline Phosphatase (38-126) U/L Total Creatine Kinase (30-135) U/L CK-MB (CK-2) CK-MB (CK-2) Rel Index Troponin I (0.01-0.034) ng/mL NT-Pro-B Natriuret Pep (<450) pg/mL Total Protein (6.3-8.2) g/dL Albumin (3.5-5.0) g/dL Globulin (1.7-4.1) g/dL Albumin/Globulin Ratio (1.0-2.8) SARS-CoV-2 (PCR) Negative (Negative) Imaging Data CT scan - chest: Radiologist's Impression: Elena Danielson 79 F [address] [id number] Scan ReportSigned Patient: Elena Danielson RMR#: [id number]: 1940cct:[id number]/Sex: 79 / FDate of Service: 08/21/20Loc: EDAccession Number: [id number] Procedure: CT angio chest PE protocol Ordering Provider: Elijah Robertson D.O. PROCEDURE: CT ANGIO CHEST PE PROTOCOL INDICATIONS: severe hypoxia, sedentary TECHNIQUE: After the administration of intravenous contrast, 2 mm thick sections acquired from the pulmonary apices to the posterior costophrenic angles. 3-dimensional maximum intensity projection (MIP) coronal and sagittal reformats were then acquired through the thorax. For radiation dose reduction, the following was used: automated exposure control, adjustment of mA and/or kV according to patient size. COMPARISON: [facility], CT, CT KIDNEY URETER BLADDER (KUB), 12/08/2018, 14:01. [facility], CT, CT ANGIO CHEST PE PROTOCOL, 05/30/2019, 12:23. FINDINGS: Image quality: Suboptimal opacification of the distal pulmonary arteries. Pulmonary arteries: Pulmonary arteries are normal in size, and demonstrate no intraluminal filling defects to suggest central pulmonary embolism. However the segmental pulmonary arteries are not well visualized due to heterogeneous opacification. This is also secondary to body habitus. Multiple pulmonary nodule seen in the both lung base, subcentimeter in size are grossly unchanged dating back to 12/08/18 presumably chronic granulomatous disease. Mild dependent bilateral lower lobe patchy consolidative opacities No pleural effusions or pneumothorax. Central and peripheral airways are patent. Mediastinum: Heart size is normal, without pericardial effusion. Coronary artery calcifications are present. No mediastinal or hilar adenopathy. Thoracic aorta is normal in caliber and enhancement. Esophagus is normal in caliber, without hiatal hernia. Bones and chest wall: No suspicious bony lesions. Ribs and thoracic spine appear intact throughout. Thyroid is grossly unremarkable No axillary or supraclavicular adenopathy. Abdomen: Visualized upper abdominal solid organs appear normal in the early arterial phase of enhancement. IMPRESSION: No large or central pulmonary embolus however the distal pulmonary vasculature is not well evaluated due to body habitus and heterogeneous contrast opacification. If clinically warranted, further risk stratification could be performed with bilateral lower extremity ultrasound for DVT. Mild bilateral lower lobe dependent patchy consolidative opacities suggestive of mild aspiration/atelectasis. Additional chronic and incidental findings as above. Dictated by: Renzo David M.D. on 08/21/2020 at 21:05 Approved by: Renzo David M.D. on 08/21/2020 at 21:29 Chest x-ray: Radiologist's Impression: Chart Viewer Diagnostics DATE TYPE STATUS REF RANGE/AUTHOR Radha Today 20:08 Renzo David Today 17:43 Frankie,Renzo Today 17:40 Renzo David 08/20/20 14:11 Trinity Moncada 04/07/20 00:00 04/07/20 00:00 04/07/20 00:00 07/07/19 18:52 Chago Mason 07/07/19 13:55 07/07/19 12:21 Mike Reid 07/07/19 10:57 Jay Vásquez 05/30/19 10:49 [place],Mike 03/15/19 09:20 Roddy Rodriguez 01/13/19 00:00 Renzo David 12/08/18 00:00 Renzo David 11/26/18 17:50 Lucina Weeks 11/12/18 00:00 Mike Reid 10/17/18 00:00 Allie Dockery 08/05/18 00:00 Renzo David 07/15/18 00:00 Renzo David 06/13/18 00:00 Renzo David 06/06/18 17:59 Norberto Moncadaley 04/15/18 13:44 Solange,Fieyu 04/14/18 16:11 04/14/18 00:00 Son Headley 04/03/18 23:50 04/03/18 23:09 Lizzie Michelleng 04/03/18 20:45 Solange,Fieyu 04/03/18 20:45 Solange,Fieyu 04/02/18 11:18 Son Headley JagjitElena 79, F0 1940 [facility] ER, Main ED R08 Shortness of Breath/Dyspnea Search Chart No Data to Display Total Unconfirmed ALLERGY TO TAPE ONSET Today 21:12 Elena Danielson 79 F [address] [address]EBur ReportSigned Patient: Elena Danielson RMR#: [id number]: 1940cct:[id number]/Sex: 79 / FDate of Service: 08/21/20Loc: EDAccession Number: [id number] Procedure: XR chest 1V Ordering Provider: Harmony Layton D.O. PROCEDURE: XR CHEST 1V INDICATIONS: altered mental status, low O2 TECHNIQUE: One view of the chest was acquired. [facility], 17:54. FINDINGS: Surgical changes and devices: None. Patchy retrocardiac opacities No pleural effusions or pneumothorax. Mediastinum: Mediastinal contours appear normal. Heart size is normal. Bones and chest wall: No suspicious bony lesions. Overlying soft tissues appear unremarkable. IMPRESSION: Patchy retrocardiac opacities and low lung volumes. This could reflect aspiration/atelectasis versus pneumonia. If there is persistent clinical diagnostic uncertainty, continued surveillance with short interval chest radiographs after treatment is recommended. Dictated by: Renzo David M.D. on 08/21/2020 at 18:28 Approved by: Renzo David M.D. on 08/21/2020 at 18:29 Discharge Plan Departure Patient Disposition: Admitted As Inpatient Clinical Impression: Acute hypoxemic respiratory failure Pneumonia Qualifiers: Pneumonia type: due to unspecified organism Laterality: bilateral Lung location: lower lobe of lung Qualified Code(s): J18.9 - Pneumonia, unspecified organism Admit Date/Time: 08/21/20 23:03 Admit Provider: Fidelina Polanco
[2020-08-21 19:45] LABS: Add Manual Diff / Slide Review YES; Hematocrit 40.3 % (36-46); Hemoglobin 13.3 g/dL (12.0-16.0); Mean Corpuscular HGB Conc 33.1 % (30-36); Mean Corpuscular Hemoglobin 31.3 PG (26-34); Mean Corpuscular Volume 94.7 fL (80-100); Platelet Count 194 X10^3/uL (150-400); Red Blood Cell Count 4.25 X10^6/uL (4.0-5.2); Red Cell Distribution Width 14.3 % (11.6-14.8); White Blood Cell Count 15.4 X10^3/uL (4.5-11.0)
[2020-08-21 19:45] LABS: Fractionated Inspired Oxygen 21; HCO3 ABG 36 mmol/L (22-26); Oxygen Saturation ABG 90 % (95-100); PCO2 ABG 41.5 mmHg (35-45); PO2 ABG 51 mmHg (80-100); TCO2 ABG 37 mmol/L (21-31); pH ABG 7.54 (7.35-7.45)
[2020-08-21 19:56] LABS: Prothrombin Time 22.6 SECONDS (10.1-12.7)
[2020-08-21 19:59] LABS: PTT Partial Thromboplastin Tim 47 SECONDS (26.4-36.2)
[2020-08-21 20:03] LABS: Alanine Aminotransferase 16 IU/L (<35); Albumin 4.2 g/dL (3.5-5.0); Albumin Globulin Ratio 1.1 (1.0-2.8); Alkaline Phosphatase 82 U/L (38-126); Aspartate Aminotransferase 20 IU/L (14-36); Bilirubin Total 1.1 mg/dL (0.2-1.3); Blood Urea Nitrogen 22 mg/dL (7-17); Carbon Dioxide 34 mmol/L (22-32); Chloride 97 mmol/L (98-107); Estimated Glomerular Filt Rate 50.7 mL/min (>60); Globulin 3.7 g/dL (1.7-4.1); Glucose 136 mg/dL (80-110); HEMOLYSIS 22 (0-50); Potassium 4.1 mmol/L (3.4-5.1); Sodium 139 mmol/L (137-145); Total Protein 7.9 g/dL (6.3-8.2)
[2020-08-21 20:04] LABS: Creatine Kinase 23 U/L (30-135); Magnesium 1.7 mg/dL (1.6-2.3)
--- NOTE | 2020-08-21 20:08 | DI.CT.S_ITS ---
PROCEDURE: CT ANGIO CHEST PE PROTOCOL INDICATIONS: severe hypoxia, sedentary TECHNIQUE: After the administration of intravenous contrast, 2 mm thick sections acquired from the pulmonary apices to the posterior costophrenic angles. 3-dimensional maximum intensity projection (MIP) coronal and sagittal reformats were then acquired through the thorax. For radiation dose reduction, the following was used: automated exposure control, adjustment of mA and/or kV according to patient size. COMPARISON: [facility], CT, CT KIDNEY URETER BLADDER (KUB), 12/08/2018, 14:01. [facility], CT, CT ANGIO CHEST PE PROTOCOL, 05/30/2019, 12:23. FINDINGS: Image quality: Suboptimal opacification of the distal pulmonary arteries. Pulmonary arteries: Pulmonary arteries are normal in size, and demonstrate no intraluminal filling defects to suggest central pulmonary embolism. However the segmental pulmonary arteries are not well visualized due to heterogeneous opacification. This is also secondary to body habitus. Multiple pulmonary nodule seen in the both lung base, subcentimeter in size are grossly unchanged dating back to 12/08/18 presumably chronic granulomatous disease. Mild dependent bilateral lower lobe patchy consolidative opacities No pleural effusions or pneumothorax. Central and peripheral airways are patent. Mediastinum: Heart size is normal, without pericardial effusion. Coronary artery calcifications are present. No mediastinal or hilar adenopathy. Thoracic aorta is normal in caliber and enhancement. Esophagus is normal in caliber, without hiatal hernia. Bones and chest wall: No suspicious bony lesions. Ribs and thoracic spine appear intact throughout. Thyroid is grossly unremarkable No axillary or supraclavicular adenopathy. Abdomen: Visualized upper abdominal solid organs appear normal in the early arterial phase of enhancement. IMPRESSION: No large or central pulmonary embolus however the distal pulmonary vasculature is not well evaluated due to body habitus and heterogeneous contrast opacification. If clinically warranted, further risk stratification could be performed with bilateral lower extremity ultrasound for DVT. Mild bilateral lower lobe dependent patchy consolidative opacities suggestive of mild aspiration/atelectasis. Additional chronic and incidental findings as above. Dictated by: Renzo David M.D. on 08/21/2020 at 21:05 Approved by: Renzo David M.D. on 08/21/2020 at 21:29
[2020-08-21 20:12] LABS: NT-proBNP (BNP-Adult 18+) 1140 pg/mL (<450)
[2020-08-21 20:14] LABS: Neutrophils Absolute Manual 9240 /uL (3000-5900); RBC Morphology Normal Morphology; Total Cells Counted 100
[2020-08-21 20:15] LABS: Troponin I < 0.012 ng/mL (0.01-0.034)
[2020-08-21] MEDS: CEFTRIAXONE 2 GM/50 ML FROZ.PIGGY IV (22:50)
--- NOTE | 2020-08-21 23:38 | PM.HP.1 ---
History of Present Illness History of Present Illness Date Patient Seen: 08/21/20 Time Patient Seen: 23:38 Chief complaint: hypoxia Narrative: Patient is a 79-year-old female Elena Danielson who presented to the ED via EMS from [facility] with shortness of breath and hypoxemia with acute oxygen requirements. 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 Patient is a morbidly obese female completely bed/wheelchair bound x 2.5 yrs with a BMI >60. In the ER patient demonstrated pulse ox dipping into the mid 80s. She was placed on 4L and increased SpO2 to mid 90s. Patient denies any dizziness, weakness, lightheadedness, fever, chills, chest pain. SOB, cough, N/V/D. She was seen yesterday with a knee injury and had negative Xray and was placed on opioids. There is some question of multiple dosing of these meds, but it is unclear. She denies any blurred vision, trouble with speech, numbness, tingling, weakness or other. Upon interview on admit to floor patient was orientated to self, some responses were accurate others were either incomplete or incoherent or inappropriate. Patient did not appear to know where she was or recall time. Patient reported that her shortness of breath began 1 week ago following her causing her to fall out of her wheelchair injuring her leg, patients some time ago. Patient also requested that I help her get out of the chair, while she was laying in the bed. She also multiple times repeated statements, frequently 3 times. Patient was a poor historian due to impaired cognitive function at this time unsure if it is related to decreased oxygenation or infectious process. Patient denied pain discomfort shortness of breath, and at 1 point reversed her history and stated she was unaware that she was short of breath and confused as to why she had oxygen on. Several of the questions patient would simply just answer yes, or she would simply repeat whatever I had stated as her answer, repeating the statement several times. I reviewed psychiatric visit Jesús CERTIFIED MEDICAL TECHNICIAN ASSISTANT 07/06/20 I saw no documentation of dementia or cognitive impairment will continue to evaluate. Also reviewed multiple [facility] current [facility]. Patient's vital signs upon admit to floor temp 98.2?, BP 140/82, HR 75, RR 18, O2 saturation 95% on 4 L nasal cannula. BMI >60-69. ABGs: PH 7.54, PaO2 51, HC03 36, total CO2 37, O2 saturation 90, base excess 13, FiO2 21. Labs WBC 15.4 with left shift (Bands 2.0, Neut 9,240) chloride 97, BUN 22, bicarb 34, creatinine 1.05, glucose 136, EGFR 50.7, total creatinine kinase 23, troponin negative, proBNP 1140. CTA: No large or central pulmonary embolus however the distal pulmonary vasculature is not well evaluated due to body habitus and heterogeneous contrast opacification. If clinically warranted, further risk stratification could be performed with bilateral lower extremity ultrasound for DVT. Mild bilateral lower lobe dependent patchy consolidative opacities suggestive of mild aspiration/atelectasis. CXR:Patchy retrocardiac opacities and low lung volumes. This could reflect aspiration/atelectasis versus pneumonia. If there is persistent clinical diagnostic uncertainty, continued surveillance with short interval chest radiographs after treatment is recommended.Head CT:Suboptimal evaluation secondary to asymmetric patent positioning. No gross acute intracranial abnormality identified.COMPARISON: [facility], CT, CT KIDNEY URETER BLADDER (KUB), 12/08/2018, 14:01. [facility], CT, CT ANGIO CHEST PE PROTOCOL, 05/30/2019, 12:23. EKG: Atrial fibrillation with a rate of [address] or T-wave changes. Echo: 07/07/2019 EF 55-65%, left ventricular wall thickness is borderline increased, right ventricular mild to moderate dilated systolic function likely lower limits of normal. Patient admitted for hypoxic respiratory failure/metabolic alkalosis. PCP Dr. Hussein/Psych Chuck BENITO. 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 use of anticoagulant therapy Major depressive disorder Obesity Obstructive sleep apnea Urinary incontinence Venous insufficiency (chronic) (peripheral) Wheelchair bound Surgical History (Updated 08/22/20 @ 01:11 by SONNY Mendosa-) History of abdominal hysterectomy History of bilateral knee replacement History of toe surgery Family & Social History Family History Father Stroke Mother Cancer Other Family history non-contributory Social History: household members , household member-caregiver, lives at a SNF, patient has been non-ambulatory for 2.5 years, and is bed/wheelchair-bound due to morbid obesity. Safety & Behavioral: Feels Safe in Current Yes Environment Been Physically Hurt or No Threatened By a Person Tobacco & Substance use: Tobacco type cigars Smoking Status Former smoker alcohol intake former alcohol intake frequency 0-2 drinks per day Substance Use Type does not use Meds Home Medications and Allergies Home Medications Medication Instructions Recorded Confirmed Type nitroglycerin [Nitrostat] 0.4 mg SUBLINGUAL PRN PRN #0 07/05/16 08/22/20 History ondansetron HCl 4 mg PO Q4HP PRN #0 04/08/17 08/22/20 History nystatin 1 applic TOPICAL TID 12/04/17 08/22/20 History Myrbetriq 25 mg PO DAILY 04/03/18 08/22/20 History aripiprazole 2.5 mg PO DAILY 04/03/18 08/22/20 History aspirin [Aspir-Low] 81 mg PO DAILY 04/03/18 08/22/20 History atorvastatin 40 mg PO BEDTIME 04/03/18 08/22/20 History diltiazem HCl 240 mg PO DAILY 04/03/18 08/22/20 History docusate sodium 200 mg PO BID 04/03/18 08/22/20 History potassium chloride 10 meq PO DAILY 04/03/18 08/22/20 History acetaminophen 1,000 mg PO BID MDD 3 g 04/14/18 08/22/20 History Lantus U-100 Insulin 80 units SUBCUT BID 06/06/18 08/22/20 History insulin lispro [Humalog U-100 See Rx Instructions .ROUTE .COMPLEX 06/06/18 08/22/20 History Insulin] melatonin 3 mg PO BEDTIME PRN 06/06/18 08/22/20 History multivitamin with minerals 1 cap PO DAILY 06/06/18 08/22/20 History polyethylene glycol 3350 17 g PO DAILY PRN 06/06/18 08/22/20 History sennosides [senna] 17.2 mg PO BID 06/06/18 08/22/20 History Eliquis 5 mg PO BID 07/07/19 08/22/20 History Hysingla ER 40 mg PO QAM 07/07/19 08/22/20 History duloxetine 90 mg PO DAILY 07/07/19 08/22/20 History furosemide 80 mg PO DAILY 07/07/19 08/22/20 History gabapentin 1,000 mg PO TID 07/07/19 08/22/20 History gabapentin 1,000 mg PO TID 07/07/19 08/22/20 History levothyroxine 100 mcg PO DAILY 07/07/19 08/22/20 History lidocaine [Aspercreme (lidocaine)] 1 patch TOPICAL DAILY 07/07/19 08/22/20 History lisinopril 20 mg PO BID 07/07/19 08/22/20 History lorazepam 1 mg PO BEDTIME PRN 07/07/19 08/22/20 History nystatin 1 applic TOPICAL BID 07/07/19 08/22/20 History pantoprazole 40 mg PO DAILY 07/07/19 08/22/20 History bupropion HCl 100 mg tablet,12 hr 100 mg PO BID 07/07/20 08/22/20 History sustained-release hydrocodone-acetaminophen 1 tab PO QID PRN #10 tab 08/20/20 08/22/20 Rx Allergies Allergy/AdvReac Type Severity Reaction Status Date / Time adhesive [ADHESIVE] Allergy Mild ALLERGY TO Verified 08/21/20 17:15 TAPE Review of Systems Review of Systems ROS: Yes All systems reviewed with the patient and are negative except as otherwise documented and unobtainable due to mental status Exam Vital Signs (past 8 hours): - 08/21/20 17:15 08/21/20 20:51 08/21/20 21:00 Temperature 98.2 F Pulse Rate 77 73 76 Respiratory Rate 18 Blood Pressure 134/64 Pulse Oximetry 94 95 94 08/21/20 21:12 08/21/20 21:30 08/21/20 21:31 Temperature Pulse Rate 75 77 77 Respiratory Rate Blood Pressure 140/82 153/63 H Pulse Oximetry 95 94 94 08/21/20 21:57 08/21/20 22:01 08/21/20 22:10 Temperature Pulse Rate 80 78 Respiratory Rate Blood Pressure 142/60 H Pulse Oximetry 95 93 08/21/20 22:14 08/21/20 22:31 08/21/20 22:34 Temperature Pulse Rate 80 79 Respiratory Rate Blood Pressure 140/62 Pulse Oximetry 92 93 08/21/20 23:00 08/21/20 23:01 08/21/20 23:30 Temperature Pulse Rate 77 78 82 Respiratory Rate Blood Pressure 146/71 H Pulse Oximetry 87 L 88 L 91 Oxygen Delivery Method Nasal Cannula Oxygen Flow Rate 4 Narrative Exam Narrative: General: Patient is a morbidly obese body habitus female, well-nourished in no distress at this time, on 1L N/C. HEENT: Normocephalic, atraumatic, extraocular muscles intact, oral pharynx is clear and mucous membranes are moist. Neck is supple and symmetric, trachea is midline, no adenopathy, no thyroid enlargement, nontender, no masses palpated. Negative for JVD Chest: no nasal flaring, retractions, or tachypneic labored Lungs: Auscultation of all lung sims decreased with crackles in bilateral bases. Cardio: regular rate and rhythm without murmur, rubs, or gallops, no carotid bruit, no cardiac pulsations present. Abdomen: Soft nontender, negative for organomegaly, or masses though masses maynot be palpated due to pt abdominal girth. Bowel sounds are present in all 4 quadrants without guarding or rebound, no CVA tenderness. Musculoskeletal: Muscle strength and tone are greatly decreased, no gross deformity, crepitus, effusions, cyanosis, clubbing or edema present. Patient is bedbound decreased range of motion, intact radial and pedal pulses are normal. Skin: Warm dry and intact without rashes, ulcerations or petechiae. Neuro: Alert, patient is orientated to self the confusion as to place and time. Sensation intact to touch. No gross deficits noted of cranial nerves. Psych: Patient has a moderately well-kept appearance, depressed affect, mental status attitude thought context and judgment appear in appropriate for age, unsure if confusion related to decreased oxygenation possible secondary infection or if this is patient's baseline. Objective Labs Result Diagrams: 08/21/20 19:30 08/21/20 19:30 Labs: Laboratory Results - last 24 hr 08/21/20 08/21/20 08/21/20 19:30 19:30 19:30 WBC 15.4 H RBC 4.25 Hgb 13.3 Hct 40.3 MCV 94.7 MCH 31.3 MCHC 33.1 RDW 14.3 Plt Count 194 Neut % (Auto) Not Reportable Lymph % (Auto) Not Reportable [place] % (Auto) Not Reportable Eos % (Auto) Not Reportable Baso % (Auto) Not Reportable Lymph # (Auto) Not Reportable [place] # (Auto) Not Reportable Baso # (Auto) Not Reportable Total Counted 100 Seg Neutrophils % 58.0 Band Neutrophils % 2.0 L Lymphocytes % (Manual) 12.0 L Atypical Lymphs % 8.0 H Monocytes % (Manual) 19.0 H Eosinophils % (Manual) 1.0 L Neutrophils # (Manual) 9240 H RBC Morphology Normal morphology PT 22.6 H INR 2.0 H APTT 47 H D ABG pH ABG pCO2 ABG pO2 ABG HCO3 ABG Total CO2 ABG O2 Saturation ABG Base Excess FiO2 Sodium Potassium Chloride Carbon Dioxide BUN Creatinine Estimated GFR BUN/Creatinine Ratio Glucose Calcium Magnesium Total Bilirubin AST ALT Alkaline Phosphatase Total Creatine Kinase CK-MB (CK-2) CK-MB (CK-2) Rel Index Troponin I NT-Pro-B Natriuret Pep 1140 H Total Protein Albumin Globulin Albumin/Globulin Ratio 08/21/20 08/21/20 08/21/20 19:30 19:30 19:39 WBC RBC Hgb Hct MCV MCH MCHC RDW Plt Count Neut % (Auto) Lymph % (Auto) [place] % (Auto) Eos % (Auto) Baso % (Auto) Lymph # (Auto) [place] # (Auto) Baso # (Auto) Total Counted Seg Neutrophils % Band Neutrophils % Lymphocytes % (Manual) Atypical Lymphs % Monocytes % (Manual) Eosinophils % (Manual) Neutrophils # (Manual) RBC Morphology PT INR APTT ABG pH 7.54 H ABG pCO2 41.5 ABG pO2 51 L ABG HCO3 36 H ABG Total CO2 37 H ABG O2 Saturation 90 L ABG Base Excess 13.0 H FiO2 21 Sodium 139 Potassium 4.1 Chloride 97 L Carbon Dioxide 34 H BUN 22 H Creatinine 1.05 H Estimated GFR 50.7 L BUN/Creatinine Ratio 21.0 Glucose 136 H Calcium 10.0 Magnesium 1.7 Total Bilirubin 1.1 AST 20 ALT 16 Alkaline Phosphatase 82 Total Creatine Kinase 23 L CK-MB (CK-2) TNP CK-MB (CK-2) Rel Index TNP Troponin I < 0.012 NT-Pro-B Natriuret Pep Total Protein 7.9 Albumin 4.2 Globulin 3.7 Albumin/Globulin Ratio 1.1 Assessment & Plan Assessment & Plan narrative: This patient requires acute care inpatient hospital management for acute hypoxic respiratory failure. Patient has failed outpatient management in a [facility] facility which also serves as a complicating comorbidity factor in the patient's development of possible hospital acquired infections. 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 These factors increase the difficulty and complexity of medical and surgical interventions and increases the chances of poor outcomes such as morbidity and mortality, as well as complications from patient's morbid obesity as evidenced by a BMI greater than 60. The patient's obesity will impact her oxygenation and decreased mobility impair the patient's recovery and ability to be managed in outpatient setting. 1. Acute hypoxic respiratory failure/metabolic alkalosis (HCO3 36, PH 7.54), acute, present on admission requiring 4 L O2 nasal cannula for O2 saturation in the 90s(pt does not use home 02). CURB-65:2, SCAP: 11 (9.23-11.24% Risk) -Suspect possible polypharmacy/opioid over medication/sedation, (urine drug screen ordered) with possible secondary aspiration pneumonia or CAP. Chest x-ray demonstrates possible atelectasis versus infiltrate. Crackles in bilateral bases/pt resides in SNF ([facility]). -Patient had a positive back wound culture on 08/15/2020 for Klebsiella pneumoniea- with No documented antibiotics listed on med list/chart notes/TX, ordered blood cultures x2 procalcitonin and lactate to rule out secondary pulmonary infection to include but not limited to hospital-acquired pneumonia/community-acquired pneumonia from Klebsiella pneumonia -Monitor electrolytes and renal labs to rule out possible volume depletion secondary to diuretics- patient's potassium is stable. - Patient also has an elevated 15.4 WBC with a left shift-will complete in out cath in am to R/O UTI (patient has positive history of Klebsiella pneumonia urine culture -patient has a history of DVT, chronic right foot osteomyelitis and history of Proteus & MSSA culture positive cellulitis 2019 in right foot plantar ulceration. -Will consider repeating chest x-ray after several days of treatment, lower extremity ultrasound to rule out DVT if respiratory function continues to worsen, re-evaluate right foot for osteomyelitis if patient not improving. -blood cultures were not collected in the ER and lab was unable to collect cultures on the floor so will initially treat patient for possible (Gram-)secondary pulmonary infection/aspiration/community-acquired pneumonia/possible UTI :ceftriaxone 1 g and azithromycin 500 mg x5 days -vital signs upon admit to floor temp 98.2?, BP 140/82, HR 75, RR 18, O2 saturation 95% on 4 L nasal cannula. BMI >60-69. ABGs: PH 7.54, PaO2 51, HC03 36, total CO2 37, O2 saturation 90, base excess 13, FiO2 21. Labs WBC 15.4 with left shift (Bands 2.0, Neut 9,240) chloride 97, BUN 22, bicarb 34, creatinine 1.05, glucose 136, EGFR 50.7, total creatinine kinase 23, troponin negative, proBNP 1140. CTA: No large or central pulmonary embolus however the distal pulmonary vasculature is not well evaluated due to body habitus and heterogeneous contrast opacification. If clinically warranted, further risk stratification could be performed with bilateral lower extremity ultrasound for DVT. Mild bilateral lower lobe dependent patchy consolidative opacities suggestive of mild aspiration/atelectasis. CXR:Patchy retrocardiac opacities and low lung volumes. This could reflect aspiration/atelectasis versus pneumonia. If there is persistent clinical diagnostic uncertainty, continued surveillance with short interval chest radiographs after treatment is recommended.Head CT:Suboptimal evaluation secondary to asymmetric patent positioning. No gross acute intracranial abnormality identified.COMPARISON: [facility], CT, CT KIDNEY URETER BLADDER (KUB), 12/08/2018, 14:01. [facility], CT, CT ANGIO CHEST PE PROTOCOL, 05/30/2019, 12:23. EKG: Atrial fibrillation with a rate of [address] or T-wave changes. Echo: 07/07/2019 EF 55-65%, left ventricular wall thickness is borderline increased, right ventricular mild to moderate dilated systolic function likely lower limits of normal. -a.m. labs ordered pro BNP, Trop, CBC, CMP, PT, procalcitonin, lactate, blood cultures x2, urinalysis, drug screen-repeat ABGs as needed for worsening respiratory function, respiratory consult completed. -patient to be monitored on tele medicine, patient on O2 as needed for saturations above 90%, vital signs q.4 hours, intake and output monitored Q shift, weight measure daily, diet: Carbohydrate -IV: Lactated Ringer's 60 cc/hour for gentle rehydration due to possible volume depletion from diuretic -medications and IV fluids provided in the emergency room: Patient received dose of Rocephin and azithromycin and Lasix, hold patient's Myrbetriq -consults to order for D/C physical therapy, occupational therapy, respiratory therapy. -prevention vaccine-recommend seasonal flu vaccine, shingles vaccine, COVID, and pneumonia vaccine -Pulmonary consult if more than 2 episodes per year of respiratory distress, representing rapidly worsening disease 2. Chronic atrial fibrillation, acute on chronic, with chronic apixaban use, present on admission secondary to hypertension, -continue patient's apixaban, diltiazem, lisinopril 3. Hypertensive chronic kidney disease stage 3 secondary to coronary artery disease with atherosclerosis as result of hyperlipidemia, resulting in insulin-dependent type 2 diabetes, acute on chronic, present on admission -patient's creatinine is usually 0.8-0.9, and EGFR was greater than 60 until 06/16/2020 -chloride 97, BUN 22, HC03 34, creatinine 1.05, EGFR 50.7 -will hold patient's Lasix tomorrow and potassium, will hold pain medication, continue atorvastatin, also monitor for possible diarrhea. -upon physical exam patient did not appear to be fluid overloaded, suspect possible fluid depletion coupled with hypoxia affecting renal function 4. 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 Ordered A1c continue patient's lispro sliding scale and Lantus b.i.d. monitor patient for hypoglycemia/hyperglycemia/and skin checks for ulceration/ cellulitis. Nursing staff to assess back wound in a.m. 5. Morbid obesity BMI greater than 60, Last documented KG 147.8 /325.16 lbs, complete bed and wheelchair-bound, acute on chronic, present on admission -consideration will be given to dietary counseling, repositioning and assessment prevent bedsores. -patient requires 2 person staff assist for transfers -continue nystatin cream and powder as needed 6. Hypothyroidism, chronic, control unknown -continue patient's levothyroxine -TSH ordered-last TSH 06/16/2020 2.66 7. Major depressive disorder for current, moderate, with anxiety, acute on chronic, present on admission -reviewed psych visit Jesús CERTIFIED MEDICAL TECHNICIAN ASSISTANT 07/06/20-reviewed patient's emergency plan. No documentation of any cognitive impairment. -patient denies suicidal ideation but was unable to verbalize level depression and/or anxiety at this time -continue patient's Abilify, bupropion, duloxetine, lorazepam 8. GERD, chronic, control unknown, not present on admission -continue pantoprazole Code status:DNR Surrogate/plan of care: Daughter Serena OLIVIA PCR: Negative VTE prophylaxis: Contraindicated patient is on eliquis -SCDs only Scores GCS Martin coma scale eye opening: Spontaneous [place] coma scale verbal response: Confused Martin coma scale motor response: Localising [place] coma scale total score: 13 CHADS-VASc Congestive heart failure: no Hypertension: yes Age 75 years or older: yes Diabetes mellitus: yes Stroke, TIA, or TE: no Vascular disease: yes Age 65 to 74 years: no Sex category (female): Female CHADS-VASc Score: 6 SOFA PaO2/FIO2: < 300 mmHg Platelets: >= 150 Bilirubin: < 1.2 mg/dL Hypotension: MAP >= 70 mmHg [place] Coma Scale: 13-14 Renal: < 1.2 mg/dL SOFA Score: 3 Wells' Criteria for PE Clinical signs and symptoms of DVT: No PE is #1 Dx or equally likely: No Heart rate > 100: No Immobilization at least 3 days or surg in previous 4 weeks: Yes History of PE or DVT: Yes Hemoptysis: No Malignancy w/Treatment within 6 months or palliative: No Wells' PE Score total: 3.0
[2020-08-21 23:51] LABS: COVID19 - ADMIT (NP swab/PCR) Negative (Negative)
[2020-08-22] VITALS (11 sets, daily range): BP systolic 114–147; BP diastolic 61–90; PULSE 74–96; RESP 16–22; TEMP 36.1–37.5; O2SAT 91–97; BMI 46.7
[2020-08-22] MEDS: AZITHROMYCIN 500 MG in DEXTROSE 5% IN WATER 250 ML IV (00:05)
[2020-08-22] MEDS: FUROSEMIDE 40 MG/4 ML VIAL IV (00:06)
[2020-08-22] MEDS: INSULIN GLARGINE 100 UNIT/ML 3ML PEN 72 UNIT SUBCUT ×3 (00:35→21:11)
[2020-08-22] MEDS: LACTATED RINGERS 1,000 ML 60 ML IV ×2 (04:50→22:29)
[2020-08-22 05:35] LABS: Bacteria Urine None Seen
[2020-08-22 05:36] LABS: Appearance Urine UA CLEAR; Bilirubin Urine UA NEGATIVE (NEGATIVE); Color Urine UA YELLOW; Glucose Urine UA NEGATIVE (Negative); Ketones Urine UA NEGATIVE (NEGATIVE); Leukocyte Esterase Urine UA TRACE (NEGATIVE); Nitrite Urine UA NEGATIVE (Negative); Occult Blood Urine UA 3+ (Negative); Protein Urine UA NEGATIVE (Negative)
[2020-08-22 06:01] LABS: INR 1.9 (0.9-1.3); Prothrombin Time 21.4 SECONDS (10.1-12.7)
[2020-08-22 06:02] LABS: Red Blood Cell Count 4.22 X10^6/uL (4.0-5.2); White Blood Cell Count 15.6 X10^3/uL (4.5-11.0)
[2020-08-22 06:03] LABS: Add Manual Diff / Slide Review YES; Hematocrit 39.7 % (36-46); Hemoglobin 13.1 g/dL (12.0-16.0); Mean Corpuscular HGB Conc 33.1 % (30-36); Mean Corpuscular Hemoglobin 31.1 PG (26-34); Mean Corpuscular Volume 94.1 fL (80-100); Platelet Count 177 X10^3/uL (150-400); Red Cell Distribution Width 14.4 % (11.6-14.8)
[2020-08-22 06:12] LABS: Ur Creatinine 20 (Normal); Urine Cocaine Negative (Negative); Urine Tetrahydrocannabinol Negative (Negative); Urine pH 7 (Normal)
[2020-08-22 06:13] LABS: UR Morphine/Opiate cutoff 300 Positive (Negative); Urine Amphetamines Negative (Negative); Urine Barbiturates Negative (Negative); Urine Benzodiazepines Negative (Negative); Urine MDMA Negative (Negative); Urine Methadone Negative (Negative); Urine Methamphetamines Negative (Negative); Urine Oxycodone Positive (Negative); Urine Phencyclidine Negative (Negative); Urine Tricyclic Antidepressant Positive (Negative)
[2020-08-22 06:25] LABS: Hemoglobin A1C% w Est Avg Glu 6.8 % (4.0-6.0)
[2020-08-22 06:27] LABS: Lactate (Lactic Acid) 2.2 mmol/L (0.7-2.1)
[2020-08-22 06:28] LABS: Alanine Aminotransferase 16 IU/L (<35); Albumin 4.2 g/dL (3.5-5.0); Albumin Globulin Ratio 1.1 (1.0-2.8); Alkaline Phosphatase 81 U/L (38-126); Aspartate Aminotransferase 19 IU/L (14-36); BUN Creatinine Ratio 18.8 (6-22); Bilirubin Total 0.9 mg/dL (0.2-1.3); Blood Urea Nitrogen 19 mg/dL (7-17); Calcium 9.8 mg/dL (8.4-10.2); Carbon Dioxide 37 mmol/L (22-32); Chloride 95 mmol/L (98-107); Globulin 3.8 g/dL (1.7-4.1); Glucose 145 mg/dL (80-110); HEMOLYSIS 19 (0-50); Sodium 140 mmol/L (137-145)
[2020-08-22 06:40] LABS: NT-proBNP (BNP-Adult 18+) 1000 pg/mL (<450); Troponin I < 0.012 ng/mL (0.01-0.034)
[2020-08-22 06:44] LABS: Procalcitonin 0.31 ng/mL (<0.5)
[2020-08-22 06:51] LABS: Culture Indicated Urine Specimen Cultured; RBC Urine 5-10/HPF (0-5/HPF); Squamous Epithelial Cell Urine 0-1 /HPF (0-5/HPF); WBC Urine 1-5/HPF (0-5/HPF)
[2020-08-22] MEDS: LEVOTHYROXINE 100 MCG TABLET PO (06:55)
[2020-08-22] MEDS: LIDOCAINE/PRILOCAINE 5 GM TOP (06:55)
[2020-08-22 06:59] LABS: TSH w/ Reflex to FT4 2.28 uIU/mL (0.47-4.68)
[2020-08-22 07:19] LABS: Neutrophils Absolute Manual 10140 /uL (3000-5900); Total Cells Counted 100
[2020-08-22 07:20] LABS: RBC Morphology Normal Morphology
[2020-08-22 07:52] LABS: Reflexed Lactate in 2 Hours Y
[2020-08-22 09:13] LABS: Lactate 2HR (Lactic Acid Rflx) 1.3 mmol/L (0.7-2.1)
[2020-08-22] MEDS: DOCUSATE 100 MG CAPSULE 200 MG PO ×2 (09:45→21:06)
[2020-08-22] MEDS: GABAPENTIN 600 MG TABLET PO ×3 (09:45→21:10)
[2020-08-22] MEDS: GABAPENTIN 400 MG CAPSULE PO ×3 (09:45→21:06)
[2020-08-22] MEDS: DULOXETINE 30 MG CAPSULE 90 MG PO (09:45)
[2020-08-22] MEDS: dilTIAZem CD 240 MG CAP PO (09:45)
[2020-08-22] MEDS: APIXABAN 5 MG TABLET PO ×2 (09:45→21:06)
[2020-08-22] MEDS: PANTOPRAZOLE 40 MG TABLET PO (09:45)
[2020-08-22] MEDS: ASPIRIN EC 81 MG TABLET PO (09:45)
[2020-08-22] MEDS: lisinopriL 20 MG TABLET PO ×2 (09:46→21:06)
[2020-08-22] MEDS: ARIPiprazole 10 MG TABLET 2.5 MG PO (09:48)
[2020-08-22] MEDS: buPROPion SR 100 MG TAB PO ×2 (10:42→21:10)
[2020-08-22] MEDS: OXYCODONE IR 10 MG TABLET PO (12:27)
[2020-08-22] MEDS: INSULIN ASPART 100 UNIT/ML INSULN PEN SUBCUT ×2 (12:37→21:11)
[2020-08-22] MEDS: NYSTATIN POWDER 15GM 1 APPLIC TOP ×2 (14:39→19:16)
--- NOTE | 2020-08-22 16:38 | CM.DANOTE ---
DCP ASSESSMENT: Patient is a 79 year old female admitted to the ER for acute hypoxic respiratory failure, pneumonia and medication overload of opiates and high levels of antidepressants. PCP Marleny Ac. Primary payer Medicare and [employer]. Patient was seen in the ER 08/20 for a right knee injury. She has had three other admissions in the last year. POLST on file. Spoke with Blanca rosario nurse at [facility] who confirmed her PCP and reported she does receive behavioral health services from [place] but, was unsure of the provider?s name. Also, spoke with Lester Martin he reported when a D/C date is established he will come to the facility to complete a screen for returning to the facility. PLAN: Anticipate D/C back to [facility] when medically stable. CM Team to continue to follow. At baseline patient is two person assist and usman dependent. NEEL Fletcher MSW Student Discharge Planning/Care Management CM Discharge Assessment Start: 08/22/20 10:28 Freq: Status: Active Protocol: Document 08/22/20 10:29 AL (Rec: 08/22/20 10:34 AL [id number]) Discharge Planning Assessment Assigned Small Products Assembler NEEL Catalan Student Contact Information Jenny Danielson, Daughter # Advance Directives? Yes: ADALBERTO Advance Directives on File Yes History Provided By Patient,Medical Record Has Patient been admitted in last 30 Yes days? Comment 08/20/20: ER visit Right knee was tangled in w/c Prior Living Arrangements 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 Facility Comment Patient resides at [facility] Household Members caregiver Type of transporation used prior to Relies on Others admit Facility Name Admitted From: [facility] Willing to Return to Facility? Yes Independent with ADL's No Is patient alert and oriented? No Needs Assistance With Bathing,Grooming,Meal Prep, Toileting,Managing Medications ,Home Chores / Shopping Comment Wheel chair and bed bound for approximatly 2.5 years Caregiver for Another No DME Already Rented / Owned Wheelchair Patient/Family Preference Halfway Facility Comment Anticipate D/C back to [facility] Discharge Plan Assisted Living Facility If patient plan is SNF: Has PASSR been No: Not needed if returns to completed? [facility] Whiteboard Updated in Patient Room with Yes name and ext. # of Small Products Assembler Review Status In Process
--- NOTE | 2020-08-22 18:39 | P.PN_ITS ---
Subjective Subjective Date Patient Seen: 08/22/20 Interval history: Patient is a 79-year-old female who was admitted to the hospital for acute respiratory failure. She is on oxygen today. Her O2 sat on room air is 88-89%. She denies any shortness of breath per se. Patient reports she feels improved since admission. Exam Vital Signs (past 8 hours): - 08/22/20 12:00 08/22/20 17:50 Temperature 98.8 F 97 F L Pulse Rate 83 80 Respiratory Rate 20 20 Blood Pressure 114/69 122/72 Pulse Oximetry 93 92 Oxygen Delivery Method Nasal Cannula Oxygen Flow Rate 1.5 Narrative Exam Narrative: Morbidly obese female lying in bed Lungs: Decreased breath sounds bilaterally with occasional scattered crackles Cardiac exam: Regular rate and rhythm normal S1-S2 Abdomen: Obese, soft, nontender and nondistended Extremities: No edema Objective Labs Result Diagrams: 08/22/20 05:35 08/22/20 05:35 Labs: Laboratory Results - last 24 hr 08/21/20 08/21/20 08/21/20 19:30 19:30 19:30 WBC 15.4 H RBC 4.25 Hgb 13.3 Hct 40.3 MCV 94.7 MCH 31.3 MCHC 33.1 RDW 14.3 Plt Count 194 Neut % (Auto) Not Reportable Lymph % (Auto) Not Reportable [place] % (Auto) Not Reportable Eos % (Auto) Not Reportable Baso % (Auto) Not Reportable Lymph # (Auto) Not Reportable [place] # (Auto) Not Reportable Baso # (Auto) Not Reportable Total Counted 100 Seg Neutrophils % 58.0 Band Neutrophils % 2.0 L Lymphocytes % (Manual) 12.0 L Atypical Lymphs % 8.0 H Monocytes % (Manual) 19.0 H Eosinophils % (Manual) 1.0 L Basophils % (Manual) Neutrophils # (Manual) 9240 H RBC Morphology Normal morphology PT 22.6 H INR 2.0 H APTT 47 H D ABG pH ABG pCO2 ABG pO2 ABG HCO3 ABG Total CO2 ABG O2 Saturation ABG Base Excess FiO2 Sodium Potassium Chloride Carbon Dioxide BUN Creatinine Estimated GFR BUN/Creatinine Ratio Glucose Hemoglobin A1c Lactate Calcium Magnesium Total Bilirubin AST ALT Alkaline Phosphatase Total Creatine Kinase CK-MB (CK-2) CK-MB (CK-2) Rel Index Troponin I NT-Pro-B Natriuret Pep 1140 H Total Protein Albumin Globulin Albumin/Globulin Ratio Procalcitonin TSH Urine Color Urine Appearance Urine pH Ur Specific [place] Urine Protein Urine Glucose (UA) Urine Ketones Urine Occult Blood Urine Nitrate Urine Bilirubin Urine Urobilinogen Ur Leukocyte Esterase Urine RBC Urine WBC Ur Squamous Epith Cells Urine Bacteria Ur Culture Indicated? U Opiates 300ng/mL cut Ur Oxycodone Screen Urine Methadone Screen Ur Barbiturates Screen U Tricyclic Antidepress Ur Phencyclidine Scrn Ur Amphetamines Screen U Methamphetamines Scrn Ur MDMA Scrn (Ecstasy) U Benzodiazepines Scrn Urine Cocaine Screen U Marijuana (THC) Screen SARS-CoV-2 (PCR) 08/21/20 08/21/20 08/21/20 19:30 19:30 19:30 WBC RBC Hgb Hct MCV MCH MCHC RDW Plt Count Neut % (Auto) Lymph % (Auto) [place] % (Auto) Eos % (Auto) Baso % (Auto) Lymph # (Auto) [place] # (Auto) Baso # (Auto) Total Counted Seg Neutrophils % Band Neutrophils % Lymphocytes % (Manual) Atypical Lymphs % Monocytes % (Manual) Eosinophils % (Manual) Basophils % (Manual) Neutrophils # (Manual) RBC Morphology PT INR APTT ABG pH ABG pCO2 ABG pO2 ABG HCO3 ABG Total CO2 ABG O2 Saturation ABG Base Excess FiO2 Sodium 139 Potassium 4.1 Chloride 97 L Carbon Dioxide 34 H BUN 22 H Creatinine 1.05 H Estimated GFR 50.7 L BUN/Creatinine Ratio 21.0 Glucose 136 H Hemoglobin A1c 6.8 H Lactate Calcium 10.0 Magnesium 1.7 Total Bilirubin 1.1 AST 20 ALT 16 Alkaline Phosphatase 82 Total Creatine Kinase 23 L CK-MB (CK-2) TNP CK-MB (CK-2) Rel Index TNP Troponin I < 0.012 NT-Pro-B Natriuret Pep Total Protein 7.9 Albumin 4.2 Globulin 3.7 Albumin/Globulin Ratio 1.1 Procalcitonin TSH Urine Color Urine Appearance Urine pH Ur Specific [place] Urine Protein Urine Glucose (UA) Urine Ketones Urine Occult Blood Urine Nitrate Urine Bilirubin Urine Urobilinogen Ur Leukocyte Esterase Urine RBC Urine WBC Ur Squamous Epith Cells Urine Bacteria Ur Culture Indicated? U Opiates 300ng/mL cut Ur Oxycodone Screen Urine Methadone Screen Ur Barbiturates Screen U Tricyclic Antidepress Ur Phencyclidine Scrn Ur Amphetamines Screen U Methamphetamines Scrn Ur MDMA Scrn (Ecstasy) U Benzodiazepines Scrn Urine Cocaine Screen U Marijuana (THC) Screen SARS-CoV-2 (PCR) 08/21/20 08/21/20 08/21/20 19:30 19:39 22:55 WBC RBC Hgb Hct MCV MCH MCHC RDW Plt Count Neut % (Auto) Lymph % (Auto) [place] % (Auto) Eos % (Auto) Baso % (Auto) Lymph # (Auto) [place] # (Auto) Baso # (Auto) Total Counted Seg Neutrophils % Band Neutrophils % Lymphocytes % (Manual) Atypical Lymphs % Monocytes % (Manual) Eosinophils % (Manual) Basophils % (Manual) Neutrophils # (Manual) RBC Morphology PT INR APTT ABG pH 7.54 H ABG pCO2 41.5 ABG pO2 51 L ABG HCO3 36 H ABG Total CO2 37 H ABG O2 Saturation 90 L ABG Base Excess 13.0 H FiO2 21 Sodium Potassium Chloride Carbon Dioxide BUN Creatinine Estimated GFR BUN/Creatinine Ratio Glucose Hemoglobin A1c Lactate Calcium Magnesium Total Bilirubin AST ALT Alkaline Phosphatase Total Creatine Kinase CK-MB (CK-2) CK-MB (CK-2) Rel Index Troponin I NT-Pro-B Natriuret Pep Total Protein Albumin Globulin Albumin/Globulin Ratio Procalcitonin TSH 2.28 Urine Color Urine Appearance Urine pH Ur Specific [place] Urine Protein Urine Glucose (UA) Urine Ketones Urine Occult Blood Urine Nitrate Urine Bilirubin Urine Urobilinogen Ur Leukocyte Esterase Urine RBC Urine WBC Ur Squamous Epith Cells Urine Bacteria Ur Culture Indicated? U Opiates 300ng/mL cut Ur Oxycodone Screen Urine Methadone Screen Ur Barbiturates Screen U Tricyclic Antidepress Ur Phencyclidine Scrn Ur Amphetamines Screen U Methamphetamines Scrn Ur MDMA Scrn (Ecstasy) U Benzodiazepines Scrn Urine Cocaine Screen U Marijuana (THC) Screen SARS-CoV-2 (PCR) Negative 08/22/20 08/22/20 08/22/20 05:30 05:30 05:35 WBC RBC Hgb Hct MCV MCH MCHC RDW Plt Count Neut % (Auto) Lymph % (Auto) [place] % (Auto) Eos % (Auto) Baso % (Auto) Lymph # (Auto) [place] # (Auto) Baso # (Auto) Total Counted Seg Neutrophils % Band Neutrophils % Lymphocytes % (Manual) Atypical Lymphs % Monocytes % (Manual) Eosinophils % (Manual) Basophils % (Manual) Neutrophils # (Manual) RBC Morphology PT 21.4 H INR 1.9 H APTT ABG pH ABG pCO2 ABG pO2 ABG HCO3 ABG Total CO2 ABG O2 Saturation ABG Base Excess FiO2 Sodium Potassium Chloride Carbon Dioxide BUN Creatinine Estimated GFR BUN/Creatinine Ratio Glucose Hemoglobin A1c Lactate Calcium Magnesium Total Bilirubin AST ALT Alkaline Phosphatase Total Creatine Kinase CK-MB (CK-2) CK-MB (CK-2) Rel Index Troponin I NT-Pro-B Natriuret Pep Total Protein Albumin Globulin Albumin/Globulin Ratio Procalcitonin TSH Urine Color Yellow Urine Appearance Clear Urine pH 7.0 Ur Specific [place] 1.010 Urine Protein Negative Urine Glucose (UA) Negative Urine Ketones Negative Urine Occult Blood 3+ H Urine Nitrate Negative Urine Bilirubin Negative Urine Urobilinogen 1.0 Ur Leukocyte Esterase Trace H Urine RBC 5-10/hpf H Urine WBC 1-5/hpf Ur Squamous Epith Cells 0-1 /hpf Urine Bacteria None seen Ur Culture Indicated? Specimen cultured U Opiates 300ng/mL cut Positive H Ur Oxycodone Screen Positive H Urine Methadone Screen Negative Ur Barbiturates Screen Negative U Tricyclic Antidepress Positive H Ur Phencyclidine Scrn Negative Ur Amphetamines Screen Negative U Methamphetamines Scrn Negative Ur MDMA Scrn (Ecstasy) Negative U Benzodiazepines Scrn Negative Urine Cocaine Screen Negative U Marijuana (THC) Screen Negative SARS-CoV-2 (PCR) 08/22/20 08/22/20 08/22/20 05:35 05:35 05:35 WBC 15.6 H RBC 4.22 Hgb 13.1 Hct 39.7 MCV 94.1 MCH 31.1 MCHC 33.1 RDW 14.4 Plt Count 177 Neut % (Auto) Not Reportable Lymph % (Auto) Not Reportable [place] % (Auto) Not Reportable Eos % (Auto) Not Reportable Baso % (Auto) Not Reportable Lymph # (Auto) Not Reportable [place] # (Auto) Not Reportable Baso # (Auto) Not Reportable Total Counted 100 Seg Neutrophils % 63.0 Band Neutrophils % 2.0 L Lymphocytes % (Manual) 12.0 L Atypical Lymphs % 1.0 H Monocytes % (Manual) 21.0 H Eosinophils % (Manual) Basophils % (Manual) 1.0 Neutrophils # (Manual) 85643 H RBC Morphology Normal morphology PT INR APTT ABG pH ABG pCO2 ABG pO2 ABG HCO3 ABG Total CO2 ABG O2 Saturation ABG Base Excess FiO2 Sodium 140 Potassium 4.0 Chloride 95 L Carbon Dioxide 37 H BUN 19 H Creatinine 1.01 Estimated GFR 53.0 L BUN/Creatinine Ratio 18.8 Glucose 145 H Hemoglobin A1c Lactate 2.2 H Calcium 9.8 Magnesium Total Bilirubin 0.9 AST 19 ALT 16 Alkaline Phosphatase 81 Total Creatine Kinase CK-MB (CK-2) CK-MB (CK-2) Rel Index Troponin I < 0.012 NT-Pro-B Natriuret Pep 1000 H Total Protein 8.0 Albumin 4.2 Globulin 3.8 Albumin/Globulin Ratio 1.1 Procalcitonin TSH Urine Color Urine Appearance Urine pH Ur Specific [place] Urine Protein Urine Glucose (UA) Urine Ketones Urine Occult Blood Urine Nitrate Urine Bilirubin Urine Urobilinogen Ur Leukocyte Esterase Urine RBC Urine WBC Ur Squamous Epith Cells Urine Bacteria Ur Culture Indicated? U Opiates 300ng/mL cut Ur Oxycodone Screen Urine Methadone Screen Ur Barbiturates Screen U Tricyclic Antidepress Ur Phencyclidine Scrn Ur Amphetamines Screen U Methamphetamines Scrn Ur MDMA Scrn (Ecstasy) U Benzodiazepines Scrn Urine Cocaine Screen U Marijuana (THC) Screen SARS-CoV-2 (PCR) 08/22/20 08/22/20 05:35 08:49 WBC RBC Hgb Hct MCV MCH MCHC RDW Plt Count Neut % (Auto) Lymph % (Auto) [place] % (Auto) Eos % (Auto) Baso % (Auto) Lymph # (Auto) [place] # (Auto) Baso # (Auto) Total Counted Seg Neutrophils % Band Neutrophils % Lymphocytes % (Manual) Atypical Lymphs % Monocytes % (Manual) Eosinophils % (Manual) Basophils % (Manual) Neutrophils # (Manual) RBC Morphology PT INR APTT ABG pH ABG pCO2 ABG pO2 ABG HCO3 ABG Total CO2 ABG O2 Saturation ABG Base Excess FiO2 Sodium Potassium Chloride Carbon Dioxide BUN Creatinine Estimated GFR BUN/Creatinine Ratio Glucose Hemoglobin A1c Lactate 1.3 Calcium Magnesium Total Bilirubin AST ALT Alkaline Phosphatase Total Creatine Kinase CK-MB (CK-2) CK-MB (CK-2) Rel Index Troponin I NT-Pro-B Natriuret Pep Total Protein Albumin Globulin Albumin/Globulin Ratio Procalcitonin 0.31 TSH Urine Color Urine Appearance Urine pH Ur Specific [place] Urine Protein Urine Glucose (UA) Urine Ketones Urine Occult Blood Urine Nitrate Urine Bilirubin Urine Urobilinogen Ur Leukocyte Esterase Urine RBC Urine WBC Ur Squamous Epith Cells Urine Bacteria Ur Culture Indicated? U Opiates 300ng/mL cut Ur Oxycodone Screen Urine Methadone Screen Ur Barbiturates Screen U Tricyclic Antidepress Ur Phencyclidine Scrn Ur Amphetamines Screen U Methamphetamines Scrn Ur MDMA Scrn (Ecstasy) U Benzodiazepines Scrn Urine Cocaine Screen U Marijuana (THC) Screen SARS-CoV-2 (PCR) COUNTS INCLUDE 234 BEDS AT THE [facility] Medical History Anemia Atherosclerotic heart disease of zuni coronary artery without angina pectoris Atrial fibrillation Chronic kidney disease, stage 3 Chronic pain syndrome Diabetes Gastroesophageal reflux disease Hereditary and idiopathic neuropathy, unspecified Hyperlipidemia Hypertension Hypertensive chronic kidney disease with stage 1 through stage 4 chronic kidney disease, or unspecified chronic kidney disease Hypothyroidism Insomnia 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 Acute hypoxic respiratory failure/metabolic alkalosis (HCO3 36, PH 7.54), acute, present on admission requiring 4 L O2 nasal cannula for O2 saturation in the 90s(pt does not use home 02). CURB-65:2, SCAP: 11 (9.23-11.24% Risk) -this is likely multifactorial -suspect obesity hypoventilation, coupled with probable aspiration, in the setting of opioid narcotic this puts the patient at high risk for aspiration -will continue antibiotics -patient has chronic respiratory failure, will continue oxygen and she will need to continue oxygen at discharge 2. Chronic atrial fibrillation, acute on chronic, with chronic apixaban use, present on admission secondary to hypertension, -continue patient's apixaban, diltiazem, lisinopril 3. Hypertensive chronic kidney disease stage 3 secondary to coronary artery disease with atherosclerosis as result of hyperlipidemia, resulting in insulin- dependent type 2 diabetes, acute on chronic, present on admission -patient's creatinine is usually 0.8-0.9, and EGFR was greater than 60 until 06/16/2020 -chloride 97, BUN 22, HC03 34, creatinine 1.05, EGFR 50.7 -will hold patient's Lasix tomorrow and potassium, will hold pain medication, continue atorvastatin, also monitor for possible diarrhea. -upon physical exam patient did not appear to be fluid overloaded, suspect possible fluid depletion coupled with hypoxia affecting renal function 4. 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 Ordered A1c continue patient's lispro sliding scale and Lantus b.i.d. monitor patient for hypoglycemia/hyperglycemia/and skin checks for ulceration/ cellulitis. Nursing staff to assess back wound in a.m. 5. Morbid obesity BMI greater than 60, Last documented KG 147.8 /325.16 lbs, complete bed and wheelchair-bound, acute on chronic, present on admission -consideration will be given to dietary counseling, repositioning and assessment prevent bedsores. -patient requires 2 person staff assist for transfers -continue nystatin cream and powder as needed 6. Hypothyroidism, chronic, control unknown -continue patient's levothyroxine -TSH ordered-last TSH 06/16/2020 2.66 7. Major depressive disorder for current, moderate, with anxiety, acute on chronic, present on admission -reviewed psych visit Jesús BENITO 07/06/20-reviewed patient's emergency plan. No documentation of any cognitive impairment. -patient denies suicidal ideation but was unable to verbalize level depression and/or anxiety at this time -continue patient's Abilify, bupropion, duloxetine, lorazepam 8. GERD, chronic, control unknown, not present on admission Quality VTE Deep Vein Thrombosis/Pulmonary Embolism Present on Admission: Yes
[2020-08-22] MEDS: ATORVASTATIN 20 MG TABLET 40 MG PO (21:06)
[2020-08-22] MEDS: NYSTATIN CREAM 30 GM 1 APPLIC TOP (22:29)
--- NOTE | 2020-08-22 23:27 | PC.NURSE ---
VSS. Maceration to vulva region, nystatin cream applied. Stage 2 pressure ulcer on coccyx with allevyn dressing. Incontinent of urine, brief chnaged frequently with turns. Call light within reach. IV LR @ 60 into right forearm.
[2020-08-23] VITALS (11 sets, daily range): BP systolic 122–139; BP diastolic 55–76; PULSE 73–94; RESP 16–20; TEMP 36.1–36.9; O2SAT 89–94
[2020-08-23] MEDS: CEFTRIAXONE 1 GM/50 ML FROZ.PIGGY IV ×2 (00:18→23:21)
[2020-08-23] MEDS: AZITHROMYCIN 500 MG in DEXTROSE 5% IN WATER 250 ML IV (01:23)
[2020-08-23] MEDS: OXYCODONE IR 10 MG TABLET PO ×2 (02:21→11:29)
[2020-08-23] MEDS: LEVOTHYROXINE 100 MCG TABLET PO (06:13)
[2020-08-23 06:20] LABS: Hematocrit 37.4 % (36-46); Hemoglobin 12.1 g/dL (12.0-16.0); Mean Corpuscular HGB Conc 32.3 % (30-36); Mean Corpuscular Hemoglobin 30.4 PG (26-34); Mean Corpuscular Volume 94.1 fL (80-100); Platelet Count 180 X10^3/uL (150-400); Red Blood Cell Count 3.98 X10^6/uL (4.0-5.2); Red Cell Distribution Width 14.2 % (11.6-14.8)
[2020-08-23 06:21] LABS: Add Manual Diff / Slide Review YES; INR 2.2 (0.9-1.3); Prothrombin Time 24.5 SECONDS (10.1-12.7)
[2020-08-23 06:25] LABS: Alanine Aminotransferase 14 IU/L (<35); Albumin 3.9 g/dL (3.5-5.0); Albumin Globulin Ratio 1.1 (1.0-2.8); Alkaline Phosphatase 67 U/L (38-126); Aspartate Aminotransferase 18 IU/L (14-36); BUN Creatinine Ratio 20.9 (6-22); Bilirubin Total 0.9 mg/dL (0.2-1.3); Blood Urea Nitrogen 19 mg/dL (7-17); Calcium 9.1 mg/dL (8.4-10.2); Carbon Dioxide 35 mmol/L (22-32); Chloride 96 mmol/L (98-107); Estimated Glomerular Filt Rate 59.8 mL/min (>60); Globulin 3.5 g/dL (1.7-4.1); Glucose 161 mg/dL (80-110); HEMOLYSIS < 15 (0-50); Potassium 3.7 mmol/L (3.4-5.1); Sodium 137 mmol/L (137-145); Total Protein 7.4 g/dL (6.3-8.2)
[2020-08-23 06:58] LABS: Total Cells Counted 100
[2020-08-23 06:59] LABS: Neutrophils Absolute Manual 11050 /uL (3000-5900); RBC Morphology Normal Morphology
[2020-08-23] MEDS: DOCUSATE 100 MG CAPSULE 200 MG PO ×2 (09:51→20:40)
[2020-08-23] MEDS: APIXABAN 5 MG TABLET PO ×2 (09:51→20:40)
[2020-08-23] MEDS: GABAPENTIN 400 MG CAPSULE PO ×3 (09:51→20:40)
[2020-08-23] MEDS: PANTOPRAZOLE 40 MG TABLET PO (09:51)
[2020-08-23] MEDS: ASPIRIN EC 81 MG TABLET PO (09:51)
[2020-08-23] MEDS: lisinopriL 20 MG TABLET PO ×2 (09:51→20:42)
[2020-08-23] MEDS: GABAPENTIN 600 MG TABLET PO ×3 (09:51→20:40)
[2020-08-23] MEDS: dilTIAZem CD 240 MG CAP PO (09:51)
[2020-08-23] MEDS: buPROPion SR 100 MG TAB PO ×2 (09:52→20:40)
[2020-08-23] MEDS: DULOXETINE 30 MG CAPSULE 90 MG PO (09:52)
[2020-08-23] MEDS: ARIPiprazole 10 MG TABLET 2.5 MG PO (09:52)
[2020-08-23] MEDS: INSULIN GLARGINE 100 UNIT/ML 3ML PEN 72 UNIT SUBCUT ×2 (09:56→21:01)
[2020-08-23] MEDS: INSULIN ASPART 100 UNIT/ML INSULN PEN SUBCUT ×3 (09:57→20:54)
--- NOTE | 2020-08-23 10:53 | CM.DPC ---
Addendum entered by Marichuy Delatorre LPN 08/23/20 14:02: [place] back from Dr. Hernandez this afternoon. She reported pt is not stable for d/c today. VM is left for Lester. Dr. Hernandez still plans to update pt's daughter. DCP team will continue to follow. Addendum entered by Marichuy Delatorre LPN 08/23/20 11:02: Dr. Hernandez agrees to call Jenny with an update. Addendum entered by Marichuy Delatorre LPN 08/23/20 10:59: Dr. Hernandez is updated. Lester will be here at 1230 to assess pt. Will be following prn. P: at this time is d/c back to [facility] when stable for same. Original Note: DCP: continued: case received and discussed in Team Rounds. Dr. Hernandez noted pt may be ready for d/c today but she had ? that needed followup. Called Lester/Guillermina GAITAN. He confirmed pt does not use supplemental oxygen at the facility. Need is not a barrier but RT/IH would need to set it up prior to d/c. He confirmed pt has lived there for a year and a half. Has been for about same length of time but Red's was sudden and she still struggles with this. POA is now daughter Jenny Martinsroselia/ Henry: [phone].
--- NOTE | 2020-08-23 13:47 | PC.NURSE ---
Hospitalist made aware of pt's vaginal bleeding. Also informed hospitalist of pt being diaphoretic/clammy today. No changes to treatment plan made.
--- NOTE | 2020-08-23 14:05 | CM.DPNOTE ---
Faxed clinicals to Lester Sarmiento, , and he did receive the information. Luh Dutton CM Asst.
--- NOTE | 2020-08-23 19:45 | P.PN_ITS ---
Subjective Subjective Date Patient Seen: 08/23/20 Interval history: The patient is a 79-year-old female who continues to complain of significant pain. She remains hypoxic. And is requiring oxygen both at rest during the day and at night when she is sleeping Patient complains of pain all over otherwise has no specific complaints. By report from nursing the patient had vaginal bleeding earlier and was passing clots from below Exam Vital Signs (past 8 hours): - 08/23/20 13:00 08/23/20 15:25 08/23/20 19:40 Temperature 98.2 F 96.9 F L 97.8 F Pulse Rate 84 73 74 Respiratory Rate 16 18 20 Blood Pressure 132/55 L 130/67 Pulse Oximetry 94 92 91 Oxygen Delivery Method Nasal Cannula Oxygen Flow Rate 4 Narrative Exam Narrative: Morbidly obese female lying in bed uncomfortable moaning in pain Lungs: Decreased breath sounds bilaterally Cardiac exam regular rate rhythm normal S1-S2 Abdomen: Obese soft and nontender Extremities: No edema skin: no lesions Objective Labs Result Diagrams: 08/23/20 06:00 08/23/20 06:00 Labs: Laboratory Results - last 24 hr 08/23/20 08/23/20 08/23/20 06:00 06:00 06:00 WBC 17.0 H RBC 3.98 L Hgb 12.1 Hct 37.4 MCV 94.1 MCH 30.4 MCHC 32.3 RDW 14.2 Plt Count 180 Neut % (Auto) Not Reportable Lymph % (Auto) Not Reportable [place] % (Auto) Not Reportable Eos % (Auto) Not Reportable Baso % (Auto) Not Reportable Lymph # (Auto) Not Reportable [place] # (Auto) Not Reportable Baso # (Auto) Not Reportable Total Counted 100 Seg Neutrophils % 64.0 Band Neutrophils % 1.0 L Lymphocytes % (Manual) 13.0 L Monocytes % (Manual) 21.0 H Metamyelocytes % 1.0 H Neutrophils # (Manual) 04474 H RBC Morphology Normal morphology PT 24.5 H INR 2.2 H Sodium 137 Potassium 3.7 Chloride 96 L Carbon Dioxide 35 H BUN 19 H Creatinine 0.91 Estimated GFR 59.8 L BUN/Creatinine Ratio 20.9 Glucose 161 H Calcium 9.1 Total Bilirubin 0.9 AST 18 ALT 14 Alkaline Phosphatase 67 Total Protein 7.4 Albumin 3.9 Globulin 3.5 Albumin/Globulin Ratio 1.1 [facility] Medical History Anemia Atherosclerotic heart disease of [place] coronary artery without angina pectoris Atrial fibrillation Chronic kidney disease, stage 3 Chronic pain syndrome Diabetes Gastroesophageal reflux disease Hereditary and idiopathic neuropathy, unspecified Hyperlipidemia Hypertension Hypertensive chronic kidney disease with stage 1 through stage 4 chronic kidney disease, or unspecified chronic kidney disease Hypothyroidism Insomnia 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 Major depressive disorder Obesity Obstructive sleep apnea Urinary incontinence Venous insufficiency (chronic) (peripheral) Wheelchair bound Surgical History (Updated 08/22/20 @ 01:11 by CARLYN Mendosa) History of abdominal hysterectomy History of bilateral knee replacement History of toe surgery Family History Father Stroke Mother Cancer Other Family history non-contributory Social History household members: caregiver Smoking Status: Former smoker alcohol intake: never Assessment & Plan Assessment & Plan narrative: Acute hypoxic respiratory failure/metabolic alkalosis (HCO3 36, PH 7.54), acute, present on admission requiring 4 L O2 nasal cannula for O2 saturation in the 90s(pt does not use home 02). CURB-65:2, SCAP: 11 (9.23-11.24% Risk) -this is likely multifactorial -suspect obesity hypoventilation, coupled with probable aspiration, in the setting of opioid narcotic this puts the patient at high risk for aspiration -will continue antibiotics Per report patient was not previously on oxygen- -patient may benefit from trilogy, will ask respiratory to consult and evaluate 2. Chronic atrial fibrillation, acute on chronic, with chronic apixaban use, present on admission secondary to hypertension, -continue patient's apixaban, diltiazem, lisinopril 3. Hypertensive chronic kidney disease stage 3 secondary to coronary artery disease with atherosclerosis as result of hyperlipidemia, resulting in insulin- dependent type 2 diabetes, acute on chronic, present on admission -patient's creatinine is usually 0.8-0.9, and EGFR was greater than 60 until 06/16/2020 -chloride 97, BUN 22, HC03 34, creatinine 1.05, EGFR 50.7 -will hold patient's Lasix tomorrow and potassium, will hold pain medication, continue atorvastatin, also monitor for possible diarrhea. -upon physical exam patient did not appear to be fluid overloaded, suspect possible fluid depletion coupled with hypoxia affecting renal function 4. 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 Ordered A1c continue patient's lispro sliding scale and Lantus b.i.d. monitor patient for hypoglycemia/hyperglycemia/and skin checks for ulceration/ cellulitis. Nursing staff to assess back wound in a.m. 5. Morbid obesity BMI greater than 60, Last documented KG 147.8 /325.16 lbs, complete bed and wheelchair-bound, acute on chronic, present on admission -consideration will be given to dietary counseling, repositioning and assessment prevent bedsores. -patient requires 2 person staff assist for transfers -continue nystatin cream and powder as needed 6. Hypothyroidism, chronic, control unknown -continue patient's levothyroxine -TSH ordered-last TSH 06/16/2020 2.66 7. Major depressive disorder for current, moderate, with anxiety, acute on chronic, present on admission -reviewed psych visit Jesús BENITO 07/06/20-reviewed patient's emergency plan. No documentation of any cognitive impairment. -patient denies suicidal ideation but was unable to verbalize level depression and/or anxiety at this time -continue patient's Abilify, bupropion, duloxetine, lorazepam 8. GERD, chronic, control unknown, not present on admission 9. Vaginal bleeding -patient will need to be evaluated as an outpatient with Pap and possible endometrial biopsy, given her morbidity she is at high risk for possible endometrial cancer -will follow CBC and arrange for outpatient gynecological evaluation Quality VTE Deep Vein Thrombosis/Pulmonary Embolism Present on Admission: Yes
[2020-08-23] MEDS: ATORVASTATIN 20 MG TABLET 40 MG PO (20:42)
--- NOTE | 2020-08-23 21:45 | PC.NURSE ---
Pt condition remaisn essentially unchanged. Repositioned frequently. Small ampunt vaginal bleeding noted when changed. Alert, answer questions appropriately Call light w/in reach, bed alarm on for pt safety. Continue w/plan of care. .
[2020-08-24] VITALS (10 sets, daily range): BP systolic 123–149; BP diastolic 60–79; PULSE 77–86; RESP 16–28; TEMP 36.7–37.4; O2SAT 91–94
[2020-08-24] MEDS: AZITHROMYCIN 500 MG in DEXTROSE 5% IN WATER 250 ML IV (00:29)
[2020-08-24] MEDS: OXYCODONE IR 10 MG TABLET PO ×3 (03:07→20:53)
--- NOTE | 2020-08-24 04:48 | PC.NURSE ---
Addendum entered by Zaira Dunn R.N. 08/24/20 05:37: Successful reduction to 3L sats stable at 93%. Original Note: At approx 0440, pt sats dropped to 87% on 2L O2. Pt 92-93% on 4L. Provider and RT notified, RT recommended a trial at 6L to get >96% then reduce to 4L to see if sats could be maintained at a lower rate of oxygenation. Currently 95% on 6L humidified O2 NC [0450].
[2020-08-24 06:03] LABS: Hemoglobin 12.2 g/dL (12.0-16.0); Mean Corpuscular HGB Conc 33.1 % (30-36); Mean Corpuscular Hemoglobin 31.3 PG (26-34); Mean Corpuscular Volume 94.5 fL (80-100); Platelet Count 187 X10^3/uL (150-400); Red Blood Cell Count 3.92 X10^6/uL (4.0-5.2); Red Cell Distribution Width 14.1 % (11.6-14.8); White Blood Cell Count 16.8 X10^3/uL (4.5-11.0)
[2020-08-24 06:07] LABS: Add Manual Diff / Slide Review YES
[2020-08-24 06:10] LABS: Alanine Aminotransferase 17 IU/L (<35); Albumin 3.9 g/dL (3.5-5.0); Alkaline Phosphatase 75 U/L (38-126); Aspartate Aminotransferase 21 IU/L (14-36); BUN Creatinine Ratio 23.3 (6-22); Bilirubin Total 0.8 mg/dL (0.2-1.3); Blood Urea Nitrogen 20 mg/dL (7-17); Calcium 9.3 mg/dL (8.4-10.2); Carbon Dioxide 34 mmol/L (22-32); Chloride 95 mmol/L (98-107); Estimated Glomerular Filt Rate > 60.0 mL/min (>60); Globulin 3.8 g/dL (1.7-4.1); Glucose 169 mg/dL (80-110); HEMOLYSIS < 15 (0-50); Potassium 3.7 mmol/L (3.4-5.1); Sodium 137 mmol/L (137-145); Total Protein 7.7 g/dL (6.3-8.2)
[2020-08-24 06:16] LABS: NT-proBNP (BNP-Adult 18+) 852 pg/mL (<450)
[2020-08-24] MEDS: LACTATED RINGERS 1,000 ML 60 ML IV (06:21)
[2020-08-24] MEDS: LEVOTHYROXINE 100 MCG TABLET PO (06:21)
[2020-08-24 07:00] LABS: Neutrophils Absolute Manual 11592 /uL (3000-5900); RBC Morphology Normal Morphology; Total Cells Counted 100
--- NOTE | 2020-08-24 09:12 | DI.RAD.S_ITS ---
PROCEDURE: XR CHEST 1V INDICATIONS: hypoxia TECHNIQUE: One view of the chest was acquired. COMPARISON: [facility], CR, XR CHEST 1V, 08/21/2020, 18:00. FINDINGS: Surgical changes and devices: None. Lungs and pleura: Unchanged patchy retrocardiac airspace opacity. No pleural effusions or pneumothorax. Mediastinum: Mediastinal contours appear normal. Heart size is normal. Bones and chest wall: No suspicious bony lesions. Overlying soft tissues appear unremarkable. IMPRESSION: Unchanged patchy airspace opacity in the left retrocardiac lung base. This may reflect atelectasis although aspiration pneumonia could cause a similar appearance. Dictated by: Octaviano Brower M.D. on 08/24/2020 at 9:44 Approved by: Octaviano Brower M.D. on 08/24/2020 at 9:45
[2020-08-24] MEDS: INSULIN ASPART 100 UNIT/ML INSULN PEN SUBCUT ×3 (09:13→17:36)
[2020-08-24] MEDS: INSULIN GLARGINE 100 UNIT/ML 3ML PEN 72 UNIT SUBCUT ×2 (09:14→20:26)
[2020-08-24] MEDS: buPROPion SR 100 MG TAB PO ×2 (09:15→20:25)
[2020-08-24] MEDS: ASPIRIN EC 81 MG TABLET PO (09:15)
[2020-08-24] MEDS: DOCUSATE 100 MG CAPSULE 200 MG PO ×2 (09:15→20:24)
[2020-08-24] MEDS: DULOXETINE 30 MG CAPSULE 90 MG PO (09:15)
[2020-08-24] MEDS: lisinopriL 20 MG TABLET PO ×2 (09:15→20:24)
[2020-08-24] MEDS: APIXABAN 5 MG TABLET PO ×2 (09:16→20:25)
[2020-08-24] MEDS: PANTOPRAZOLE 40 MG TABLET PO (09:16)
[2020-08-24] MEDS: dilTIAZem CD 240 MG CAP PO (09:16)
[2020-08-24] MEDS: ARIPiprazole 10 MG TABLET 2.5 MG PO (09:16)
[2020-08-24] MEDS: GABAPENTIN 600 MG TABLET PO ×3 (09:16→20:25)
[2020-08-24] MEDS: GABAPENTIN 400 MG CAPSULE PO ×3 (09:16→20:24)
[2020-08-24] MEDS: NYSTATIN POWDER 15GM 1 APPLIC TOP (09:27)
--- NOTE | 2020-08-24 10:34 | CM.DPC ---
DCP Cont: Discussed patient during team rounds. She is currently on 4 liters of oxygen. She may be evaluated for a trilogy. Left a message with Lester boateng [place] to let him know that there is a possibility that she may need to go home on oxygen, as well as her needing a trilogy. Need to see if they can take patient back with these items. P: Awaiting call back from Lester boateng [place], to inquire if they can take patient back on oxygen, as well as trilogy if this is needed. Justine Issa RN/Curb Builder
--- NOTE | 2020-08-24 10:35 | DI.US.S_ITS ---
PROCEDURE: US PELVIC COMPLETE INDICATIONS: VAGINAL BLEEDING TECHNIQUE: Real-time scanning was performed of the pelvic organs, with image documentation. Additional endovaginal scanning was necessary due to incomplete visualization of the adnexal and endometrial structures by transabdominal scanning. COMPARISON: [facility], , PELVIC COMPLETE, 01/13/2019, 11:13. FINDINGS: Uterus: Uterus is surgically absent. Ovaries: Surgically absent Other: No pathologic free abdominal or pelvic fluid. IMPRESSION: Prior hysterectomy and bilateral oophorectomy. No abnormal fluid or mass is found but the quality of visualization is limited due to bowel gas. >> Dictated by: Son Headley M.D. on 08/24/2020 at 12:32 Approved by: Son Headley M.D. on 08/24/2020 at 12:33
[2020-08-24] MEDS: polyethylene glycoL 3350 17 GM POWD.PACK PO (11:39)
--- NOTE | 2020-08-24 16:02 | P.PN_ITS ---
Subjective Subjective Date Patient Seen: 08/24/20 Interval history: The patient is a 79-year-old female who was admitted to the hospital for acute hypoxic respiratory failure. Today for the 1st time she actually looks better and states she feels better. The patient did have some vaginal bleeding yesterday but that has since stopped. She is now on 2 L of oxygen at night will desaturate requiring 4 L of oxygen. On taking her oxygen off today she desaturated to 88% on room air. She complains of knee pain but otherwise has no complaints Exam Vital Signs (past 8 hours): - 08/24/20 09:15 08/24/20 10:34 08/24/20 12:00 Temperature 98.2 F Pulse Rate 82 77 84 Respiratory Rate 16 28 H Blood Pressure 134/68 138/61 Pulse Oximetry 91 94 Oxygen Delivery Method Nasal Cannula Oxygen Flow Rate 2 Narrative Exam Narrative: Morbidly obese female resting in bed in no obvious distress, she actually looks better today than the past 2 days Lungs: Decreased breath sounds with occasional scattered crackle Cardiac exam: Irregular Mary irregular normal S1-S2 with a 2/6 systolic ejection murmur Abdomen: Soft nontender nondistended Extremities: No edema, left knee with old scarring from a prior open wound Objective Labs Result Diagrams: 08/24/20 05:30 08/24/20 05:30 Labs: Laboratory Results - last 24 hr 08/24/20 08/24/20 08/24/20 05:30 05:30 05:30 WBC 16.8 H RBC 3.92 L Hgb 12.2 Hct 37.0 MCV 94.5 MCH 31.3 MCHC 33.1 RDW 14.1 Plt Count 187 Neut % (Auto) Not Reportable Lymph % (Auto) Not Reportable [place] % (Auto) Not Reportable Eos % (Auto) Not Reportable Baso % (Auto) Not Reportable Lymph # (Auto) Not Reportable [place] # (Auto) Not Reportable Baso # (Auto) Not Reportable Total Counted 100 Seg Neutrophils % 68.0 Band Neutrophils % 1.0 L Lymphocytes % (Manual) 7.0 L Atypical Lymphs % 2.0 H Monocytes % (Manual) 19.0 H Eosinophils % (Manual) 3.0 Neutrophils # (Manual) 64073 H RBC Morphology Normal morphology Sodium 137 Potassium 3.7 Chloride 95 L Carbon Dioxide 34 H BUN 20 H Creatinine 0.86 Estimated GFR > 60.0 BUN/Creatinine Ratio 23.3 H Glucose 169 H Calcium 9.3 Total Bilirubin 0.8 AST 21 ALT 17 Alkaline Phosphatase 75 NT-Pro-B Natriuret Pep 852 H Total Protein 7.7 Albumin 3.9 Globulin 3.8 Albumin/Globulin Ratio 1.0 [facility] Medical History Anemia 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 Atrial fibrillation Chronic kidney disease, stage 3 Chronic pain syndrome Diabetes Gastroesophageal reflux disease Hereditary and idiopathic neuropathy, unspecified Hyperlipidemia Hypertension Hypertensive chronic kidney disease with stage 1 through stage 4 chronic kidney disease, or unspecified chronic kidney disease Hypothyroidism Insomnia USP current use of anticoagulant therapy Major depressive disorder Obesity Obstructive sleep apnea Urinary incontinence Venous insufficiency (chronic) (peripheral) Wheelchair bound Surgical History (Updated 08/22/20 @ 01:11 by SONNY Mendosa-THEODORE) History of abdominal hysterectomy History of bilateral knee replacement History of toe surgery Family History Father Stroke Mother Cancer Other Family history non-contributory Social History household members: caregiver Smoking Status: Former smoker alcohol intake: never Assessment & Plan Assessment & Plan narrative: Acute hypoxic respiratory failure -suspect obesity hypoventilation, coupled with probable aspiration, in the setting of opioid narcotic this puts the patient at high risk for aspiration -will continue antibiotics Per report patient was not previously on oxygen- -chest x-ray shows a retrocardiac infiltrate, suspicious for aspiration -will discontinue azithromycin, continue ceftriaxone -patient may have an element of obstructive sleep apnea as well -continue oxygen with a goal of O2 sat of 92% or higher -patient likely will be ready for discharge in the next 1-2 days. It is unclear whether she will need to discharge home on oxygen and whether her facility can manage her on home O2 2. Chronic atrial fibrillation, acute on chronic, with chronic apixaban use, present on admission secondary to hypertension, -continue patient's apixaban, diltiazem, lisinopril 3. Hypertensive chronic kidney disease stage 3 secondary to coronary artery disease with atherosclerosis as result of hyperlipidemia, resulting in insulin- dependent type 2 diabetes, acute on chronic, present on admission -patient's creatinine is usually 0.8-0.9, and EGFR was greater than 60 until 06/16/2020 -chloride 97, BUN 22, HC03 34, creatinine 1.05, EGFR 50.7 -resume Lasix 4. 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 Ordered A1c continue patient's lispro sliding scale and Lantus b.i.d. monitor patient for hypoglycemia/hyperglycemia/and skin checks for ulceration/ cellulitis. Nursing staff to assess back wound in a.m. 5. Morbid obesity BMI greater than 60, Last documented KG 147.8 /325.16 lbs, complete bed and wheelchair-bound, acute on chronic, present on admission -consideration will be given to dietary counseling, repositioning and assessment prevent bedsores. -patient requires 2 person staff assist for transfers -continue nystatin cream and powder as needed 6. Hypothyroidism, chronic, control unknown -continue patient's levothyroxine -TSH ordered-last TSH 06/16/2020 2.66 7. Major depressive disorder for current, moderate, with anxiety, acute on chronic, present on admission -reviewed psych visit Jesús BENITO 07/06/20-reviewed patient's emergency plan. No documentation of any cognitive impairment. -patient denies suicidal ideation but was unable to verbalize level depression and/or anxiety at this time -continue patient's Abilify, bupropion, duloxetine, lorazepam 8. GERD, chronic, control unknown, not present on admission 9. Vaginal bleeding -patient will need to be evaluated as an outpatient with Pap and possible endometrial biopsy, given her morbidity she is at high risk for possible endometrial cancer -will follow CBC and arrange for outpatient gynecological evaluation -pelvic ultrasound negative, patient has had hysterectomy and bilateral oophorectomy. There are no masses or obvious source of bleeding noted Quality VTE Deep Vein Thrombosis/Pulmonary Embolism Present on Admission: Yes
--- NOTE | 2020-08-24 19:46 | PC.NURSE ---
Pt alert/awake. states that right leg painful when touched. Lungs diminished, SpO2 95% on 2L Pt repositioned, Dsgs to back and coccyx CDI. Pt resting quietly @ this time. Call light w/in reach, bed alarm on for pt safety. Continue w/plan of care.
[2020-08-24] MEDS: ATORVASTATIN 20 MG TABLET 40 MG PO (20:24)
[2020-08-24] MEDS: CEFTRIAXONE 1 GM/50 ML FROZ.PIGGY IV (22:04)
[2020-08-25] VITALS (7 sets, daily range): BP systolic 124–142; BP diastolic 64–74; PULSE 67–80; RESP 18–22; TEMP 35.6–36.9; O2SAT 93–94
[2020-08-25 05:21] LABS: Hematocrit 34.9 % (36-46); Hemoglobin 11.5 g/dL (12.0-16.0); Mean Corpuscular HGB Conc 33.1 % (30-36); Mean Corpuscular Hemoglobin 31.1 PG (26-34); Platelet Count 177 X10^3/uL (150-400); Red Blood Cell Count 3.71 X10^6/uL (4.0-5.2); Red Cell Distribution Width 14.1 % (11.6-14.8); White Blood Cell Count 15.9 X10^3/uL (4.5-11.0)
[2020-08-25 05:24] LABS: Add Manual Diff / Slide Review YES
[2020-08-25 05:30] LABS: BUN Creatinine Ratio 27.6 (6-22); Blood Urea Nitrogen 24 mg/dL (7-17); Carbon Dioxide 35 mmol/L (22-32); Chloride 96 mmol/L (98-107); Estimated Glomerular Filt Rate > 60.0 mL/min (>60); Glucose 136 mg/dL (80-110); HEMOLYSIS < 15 (0-50); Potassium 3.7 mmol/L (3.4-5.1); Sodium 137 mmol/L (137-145)
[2020-08-25] MEDS: LEVOTHYROXINE 100 MCG TABLET PO (05:49)
[2020-08-25] MEDS: OXYCODONE IR 10 MG TABLET PO ×2 (05:49→15:58)
[2020-08-25 06:04] LABS: Neutrophils Absolute Manual 9063 /uL (3000-5900); RBC Morphology Normal Morphology; Total Cells Counted 100
[2020-08-25] MEDS: PANTOPRAZOLE 40 MG TABLET PO (09:07)
[2020-08-25] MEDS: GABAPENTIN 400 MG CAPSULE PO ×2 (09:07→14:02)
[2020-08-25] MEDS: APIXABAN 5 MG TABLET PO (09:07)
[2020-08-25] MEDS: dilTIAZem CD 240 MG CAP PO (09:07)
[2020-08-25] MEDS: DULOXETINE 30 MG CAPSULE 90 MG PO (09:07)
[2020-08-25] MEDS: ASPIRIN EC 81 MG TABLET PO (09:07)
[2020-08-25] MEDS: DOCUSATE 100 MG CAPSULE 200 MG PO (09:07)
[2020-08-25] MEDS: buPROPion SR 100 MG TAB PO (09:08)
[2020-08-25] MEDS: GABAPENTIN 600 MG TABLET PO ×2 (09:08→14:02)
[2020-08-25] MEDS: lisinopriL 20 MG TABLET PO (09:08)
[2020-08-25] MEDS: POTASSIUM CHLORIDE 10 MEQ TAB PO (09:08)
[2020-08-25] MEDS: ARIPiprazole 10 MG TABLET 2.5 MG PO (09:09)
[2020-08-25] MEDS: FUROSEMIDE 40 MG TABLET 80 MG PO (09:09)
[2020-08-25] MEDS: INSULIN GLARGINE 100 UNIT/ML 3ML PEN 72 UNIT SUBCUT (09:14)
--- NOTE | 2020-08-25 10:04 | CM.DPC ---
Addendum entered by Justine Issa R.N. 08/25/20 15:08: Letser, from [facility], came over to evaluate patient and stated that they will accept her back. Patient does need to have her oxygen delivered before they can accept. Called respiratory therapy, and they are working on paper work, and will be in contact with Júnior at [facility]. Lester stated that he would update patient's daughter, Jenny. Had Luh call Ellie at [facility] [place] to see when oxygen would be delivered. Confirmed that her oxygen is being delivered in the next hour. Dr. Herrera completed medication list and prescriptions. Luh, jennifer, is faxing over medication sheets. She will follow up with Lester at [facility] to confirm draft roller picker time. Original Note: DCP Cont: Discussed patient during team rounds. Let hospitalist know that as long as oxygen is set up at [facility], they can accept. They will attempt to titrate down to 2 liters. No mention of trilogy at this time. Patient could possibly go back today. Called Lester, certified novell administrator at [facility], and he will be here to come and evaluate. P: DCP to continue to follow. Will collaborate with Lester today after he assesses, to ensure that they can accept today, and will also follow up with R.T. to ensure that oxygen can be set up. Justine Issa RN/Auto Radiator Mechanic
[2020-08-25] MEDS: INSULIN ASPART 100 UNIT/ML INSULN PEN SUBCUT (12:30)
[2020-08-25 12:58] LABS: COVID19 - ADMIT (NP swab/PCR) Negative (Negative)
--- NOTE | 2020-08-25 14:24 | CM.DPNOTE ---
Noy call Enrique from , I called Júnior from [facility] to confirm Oxygen delivery to [place] for later today. Júnior said they are working on the paper work at this time, and will deliver the O2 to [place] within the next hour and a half. They have a seal delivery vehicle team technician in the neighborhood when I called. I relayed this information to Noy and Elly, the RN. Luh Dutton CM Asst.
--- NOTE | 2020-08-25 14:43 | PM.DS.1 ---
History of Present Illness History of Present Illness Date Patient Seen: 08/25/20 Time Patient Seen: 14:43 Chief complaint: hypoxia Narrative: As per CARLYN Mendosa: Patient is a 79-year-old female Elena Danielson who presented to the ED via EMS from [facility] with shortness of breath and hypoxemia with acute oxygen requirements. 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 Patient is a morbidly obese female completely bed/wheelchair bound x 2.5 yrs with a BMI >60. In the ER patient demonstrated pulse ox dipping into the mid 80s. She was placed on 4L and increased SpO2 to mid 90s. Patient denies any dizziness, weakness, lightheadedness, fever, chills, chest pain. SOB, cough, N/V/D. She was seen yesterday with a knee injury and had negative Xray and was placed on opioids. There is some question of multiple dosing of these meds, but it is unclear. She denies any blurred vision, trouble with speech, numbness, tingling, weakness or other. Upon interview on admit to floor patient was orientated to self, some responses were accurate others were either incomplete or incoherent or inappropriate. Patient did not appear to know where she was or recall time. Patient reported that her shortness of breath began 1 week ago following her causing her to fall out of her wheelchair injuring her leg, patients some time ago. Patient also requested that I help her get out of the chair, while she was laying in the bed. She also multiple times repeated statements, frequently 3 times. Patient was a poor historian due to impaired cognitive function at this time unsure if it is related to decreased oxygenation or infectious process. Patient denied pain discomfort shortness of breath, and at 1 point reversed her history and stated she was unaware that she was short of breath and confused as to why she had oxygen on. Several of the questions patient would simply just answer yes, or she would simply repeat whatever I had stated as her answer, repeating the statement several times. I reviewed psychiatric visit Jesús PAPER SLITTER 07/06/20 I saw no documentation of dementia or cognitive impairment will continue to evaluate. Also reviewed multiple [facility] current admit. Patient's vital signs upon admit to floor temp 98.2?, BP 140/82, HR 75, RR 18, O2 saturation 95% on 4 L nasal cannula. BMI >60-69. ABGs: PH 7.54, PaO2 51, HC03 36, total CO2 37, O2 saturation 90, base excess 13, FiO2 21. Labs WBC 15.4 with left shift (Bands 2.0, Neut 9,240) chloride 97, BUN 22, bicarb 34, creatinine 1.05, glucose 136, EGFR 50.7, total creatinine kinase 23, troponin negative, proBNP 1140. CTA: No large or central pulmonary embolus however the distal pulmonary vasculature is not well evaluated due to body habitus and heterogeneous contrast opacification. If clinically warranted, further risk stratification could be performed with bilateral lower extremity ultrasound for DVT. Mild bilateral lower lobe dependent patchy consolidative opacities suggestive of mild aspiration/atelectasis. CXR:Patchy retrocardiac opacities and low lung volumes. This could reflect aspiration/atelectasis versus pneumonia. If there is persistent clinical diagnostic uncertainty, continued surveillance with short interval chest radiographs after treatment is recommended.Head CT:Suboptimal evaluation secondary to asymmetric patent positioning. No gross acute intracranial abnormality identified.COMPARISON: [facility], CT, CT KIDNEY URETER BLADDER (KUB), 12/08/2018, 14:01. [facility], CT, CT ANGIO CHEST PE PROTOCOL, 05/30/2019, 12:23. EKG: Atrial fibrillation with a rate of [address] or T-wave changes. Echo: 07/07/2019 EF 55-65%, left ventricular wall thickness is borderline increased, right ventricular mild to moderate dilated systolic function likely lower limits of normal. Patient admitted for hypoxic respiratory failure/metabolic alkalosis. PCP Dr. Hussein/Psych Chuck PAPER SLITTER. Discharge Providers Provider Date of admission: 08/21/20 23:03 Discharge Date: 08/25/20 Consults: 08/21/20 17:41 Consult to Respiratory Therapy Evaluate & Treat Comment: Physician Instructions: Evaluate and treat Discharge provider: Yunier Herrera DO Summary Hospital Course Discharge Diagnosis: Please see hospital course by problem list noted below Hospital Course: This is a 79-year-old female with a past medical history of obesity, hypertension, CKD 3, chronic atrial fibrillation, hypothyroidism, major depressive disorder who was admitted with acute hypoxic respiratory failure, likely multifactorial in the setting of probable aspiration, obesity hypoventilation, and chronic pain control with opiate narcotics. 1. Acute hypoxic respiratory failure, improved but not resolved -patient was found to have a retrocardiac infiltrate, suspicious for aspiration. She received 3 days of azithromycin and continued ceftriaxone for 4 days over the course of her admission. She was not requiring supplemental oxygen but throughout her hospitalization continued to require minimal oxygen at 1-2 L via nasal cannula to maintain oxygen saturations above 88%. This did improve with treatment of pneumonia and she will continue as an outpatient on Augmentin for an additional 3 days for a total of a 7 day course. She should continue to try and wean from oxygen at her care facility. 2. Chronic atrial fibrillation, acute on chronic, with chronic apixaban use, present on admission secondary to hypertension, -no changes were made to the patient's home medications. 3. Hypertensive chronic kidney disease stage 3 secondary to coronary artery disease with atherosclerosis as result of hyperlipidemia, resulting in insulin-dependent type 2 diabetes, acute on chronic, present on admission -no changes were made to the patient's home medications. Creatinine was stable throughout the course of admission. 4. 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 5. Morbid obesity BMI greater than 60, Last documented KG 147.8 /325.16 lbs, complete bed and wheelchair-bound, acute on chronic, present on admission -consideration will be given to dietary counseling, repositioning and assessment prevent bedsores. -patient requires 2 person staff assist for transfers -continue nystatin cream and powder as needed 6. Hypothyroidism, chronic, control unknown -continue patient's levothyroxine -TSH ordered-last TSH 06/16/2020 2.66 7. Major depressive disorder for current, moderate, with anxiety, acute on chronic, present on admission -reviewed psych visit Jesús BENITO 07/06/20-reviewed patient's emergency plan. No documentation of any cognitive impairment. -patient denies suicidal ideation but was unable to verbalize level depression and/or anxiety at this time -continue patient's Abilify, bupropion, duloxetine, lorazepam 8. GERD, chronic, control unknown, not present on admission 9. Vaginal bleeding -pelvic ultrasound negative, patient has had hysterectomy and bilateral oophorectomy. There are no masses or obvious source of bleeding noted. -recommend outpatient follow-up with OBGYN if continues. Status at Discharge Overall status at discharge: patient is progressing back to baseline Time Spent with Patient Time spent: Greater than 30 minutes Exam Vital Signs (past 8 hours): - 08/25/20 07:03 08/25/20 08:00 08/25/20 09:08 Temperature 97.6 F Pulse Rate 71 71 Respiratory Rate 20 20 Blood Pressure 133/74 133/74 Pulse Oximetry 93 94 08/25/20 12:00 Temperature 97.7 F Pulse Rate 78 Respiratory Rate 18 Blood Pressure 142/69 H Pulse Oximetry 93 Oxygen Delivery Method Nasal Cannula,Humidification Oxygen Flow Rate 3 Narrative Exam Narrative: Morbidly obese female resting in bed in no obvious distress, she actually looks better today than the past 2 days Lungs: Decreased breath sounds with occasional scattered crackle Cardiac exam: Irregular Mary irregular normal S1-S2 with a 2/6 systolic ejection murmur Abdomen: Soft nontender nondistended Extremities: No edema, left knee with old scarring from a prior open wound Objective Labs Result Diagrams: 08/25/20 05:10 08/25/20 05:10 Labs: Laboratory Results - last 24 hr 08/25/20 08/25/20 08/25/20 05:10 05:10 12:05 WBC 15.9 H RBC 3.71 L Hgb 11.5 L Hct 34.9 L MCV 94.0 MCH 31.1 MCHC 33.1 RDW 14.1 Plt Count 177 Neut % (Auto) Not Reportable Lymph % (Auto) Not Reportable Cedar % (Auto) Not Reportable Eos % (Auto) Not Reportable Baso % (Auto) Not Reportable Lymph # (Auto) Not Reportable [place]edar # (Auto) Not Reportable Baso # (Auto) Not Reportable Total Counted 100 Seg Neutrophils % 56.0 Band Neutrophils % 1.0 L Lymphocytes % (Manual) 17.0 L Monocytes % (Manual) 25.0 H Eosinophils % (Manual) 1.0 L Neutrophils # (Manual) 9063 H RBC Morphology Normal morphology Sodium 137 Potassium 3.7 Chloride 96 L Carbon Dioxide 35 H BUN 24 H Creatinine 0.87 Estimated GFR > 60.0 BUN/Creatinine Ratio 27.6 H Glucose 136 H Calcium 9.0 SARS-CoV-2 (PCR) Negative PFSH Medical History Anemia Atherosclerotic heart disease of [place] coronary artery without angina pectoris Atrial fibrillation Chronic kidney disease, stage 3 Chronic pain syndrome Diabetes Gastroesophageal reflux disease Hereditary and idiopathic neuropathy, unspecified Hyperlipidemia Hypertension Hypertensive chronic kidney disease with stage 1 through stage 4 chronic kidney disease, or unspecified chronic kidney disease Hypothyroidism Insomnia longterm current use of anticoagulant therapy Major depressive disorder Obesity Obstructive sleep apnea Urinary incontinence Venous insufficiency (chronic) (peripheral) Wheelchair bound Surgical History (Updated 08/22/20 @ 01:11 by CARLYN Mendosa) History of abdominal hysterectomy History of bilateral knee replacement History of toe surgery Family History Father Stroke Mother Cancer Other Family history non-contributory Social History household members: caregiver Smoking Status: Former smoker alcohol intake: never Discharge Plan Discharge Plan Patient Disposition: Assisted Living Transfer to: [facility] Living Provider Discharge Comment: Patient was admitted to the hospital for acute hypoxemic respiratory failure which is improving. She is still requiring supplemental oxygen likely due to acute pneumonia and obesity hypoventilation. Recommend 3 additional days of antibiotics, patient has received 4 doses here for a total 7 day course. Continue to provide O2 to maintain oxygen between 90-96% ideally but no greater than 96%. Discharge orders & Medications Discharge Orders: Discharge (Order); Ordered 08/25/20 Ordered By: Yunier Herrera Prescriptions: New amoxicillin-pot clavulanate 875-125 mg tablet 1 tab PO BID 3 Days Qty: 6 RF: 0 Continued nitroglycerin [Nitrostat] 0.4 MG tablet, sublingual 0.4 mg Sublingual PRN PRN (Reason: Chest Pain) Qty: 0 RF: 0 ondansetron HCl 4 MG tablet 4 mg PO Q4HP PRN (Reason: Nausea) Qty: 0 RF: 0 atorvastatin 40 mg Tablet 40 mg PO BEDTIME RF: 0 potassium chloride 10 mEq Capsule, Extended Release 10 meq PO DAILY RF: 0 diltiazem HCl 240 mg Capsule,Extended Release 24 Hr 240 mg PO DAILY RF: 0 aspirin [Aspir-Low] 81 mg Tablet,Delayed Release (Dr/Ec) 81 mg PO DAILY RF: 0 docusate sodium 100 mg Tablet 200 mg PO BID RF: 0 aripiprazole 5 mg Tablet 2.5 mg PO DAILY RF: 0 Myrbetriq 25 mg Tablet Extended Release 24 Hr 25 mg PO DAILY RF: 0 bupropion HCl 100 mg tablet sustained-release 12 hr 100 mg PO BID RF: 0 gabapentin 600 mg tablet 1,000 mg PO TID RF: 0 lisinopril 20 mg tablet 20 mg PO BID RF: 0 gabapentin 400 mg capsule 1,000 mg PO TID RF: 0 levothyroxine 100 mcg tablet 100 mcg PO DAILY RF: 0 furosemide 80 mg tablet 80 mg PO DAILY RF: 0 pantoprazole 40 mg tablet,delayed release (DR/EC) 40 mg PO DAILY RF: 0 nystatin 100,000 unit/gram cream 1 applic TOPICAL BID RF: 0 lorazepam 1 mg tablet 1 mg PO BEDTIME PRN (Reason: Anxiety) RF: 0 duloxetine 30 mg Capsule,Delayed Release(Dr/Ec) 90 mg PO DAILY RF: 0 Eliquis 5 mg tablet 5 mg PO BID RF: 0 Hysingla ER 40 mg tablet,oral only,ext.rel.24 hr 40 mg PO QAM RF: 0 nystatin 100,000 unit/gram Powder 1 applic TOPICAL TID RF: 0 acetaminophen 500 mg Tablet 1,000 mg PO BID MDD 3 g RF: 0 polyethylene glycol 3350 17 gram/dose Powder 17 g PO DAILY PRN (Reason: Constipation) RF: 0 multivitamin with minerals Capsule 1 cap PO DAILY RF: 0 sennosides [senna] 8.6 mg Tablet 17.2 mg PO BID RF: 0 Lantus U-100 Insulin 100 unit/mL Solution 80 units subcut BID RF: 0 melatonin 3 mg Tablet 3 mg PO BEDTIME PRN (Reason: Insomnia) RF: 0 insulin lispro [Humalog U-100 Insulin] 100 unit/mL Solution See Rx Instructions .ROUTE .COMPLEX RF: 0 hydrocodone-acetaminophen 5-325 mg tablet 1 tab PO QID PRN (Reason: pain) Qty: 10 RF: 0 Diet/Activity/Treatments Diet: Diet as Tolerated and Carb-consistent/Diabetic Activity: As tolerated Quality VTE Deep Vein Thrombosis/Pulmonary Embolism Present on Admission: Yes
--- NOTE | 2020-08-25 15:49 | CM.DPNOTE ---
Faxed referral packet including order, signed med list, covid & clinicals to [facility] to both faxes (alternative fax [phone] per Lester.) Fax confirmation received. Lester sayed he wants to review order and information, but said tentatively they could pick pt. up at 1700. He has transport people close by that could assist with this. Luh Dutton CM Asst.
--- NOTE | 2020-08-25 16:42 | PC.NURSE ---
Addendum entered by Sue Hodge R.N. 08/25/20 17:45: Pt reports pain to right leg improved to 7/10. Transporter, [facility], arrives to take pt to facility. Still no return phone call from facility so this insurance writer can provide report/answer questions. Pt left hospital in stable condition with portable oxygen set @ 2L/min. Addendum entered by Sue Hodge R.N. 08/25/20 17:38: Wheelchair to accomodate pt's needs found in this hospital and pt mechanical lifted into more comfortable and safe chair. [facility] has provided portable oxygen for pt's transport. This insurance writer phoned transporter, [employer], to come for pt. Addendum entered by Sue Hodge R.N. 08/25/20 17:06: Transporter states unable to transport pt as pt cannot bend right leg to fit into foot cradle on wheelchair. Refrigerating O[employer], [employer], informed and on the search for a wheelchair to accomodate pt's need. Oxygen tank provided by [facility] for transport. Original Note: Pt awake and alert in bed. Flat affect with delayed, but clear speech. Instructed pt transfer to facility to take place @ 1700. Inquired of pt if having pain to legs and pt reports pain to right leg 8/10. Medicated with oxycodone in anticipation of transfer. IV removed to right ac and bleeding at site so pressure dressing applied with coban to secure. Changed brief of urinary incontinence. Pt does demonstrate difficulty with turning in bed and requires maximum assistance with two staff members to turn pt in bed and change brief. Called facility to give report to staff and no answer. Message left to return this insurance writer's call. Transporter here with wheelchair to transfer patient. Discharge packet provided to transporter.
== END 2020-08-25 17:46 | DRG 177 ==
LOC: ED 23:01 → AC 23:05
PROVIDERS: Emergency Medicine; Internal Medicine; Admitting Provider Nurse Practitioner Family; Emergency Provider Emergency Medicine; Referring Provider Emergency Medicine; Visit Provider Nurse Practitioner Family
DX: J69.0 Pneumonitis due to inhalation of food and vomit (principal); J96.21 Acute and chronic respiratory failure with hypoxia; E87.3 Alkalosis; E66.2 Morbid (severe) obesity with alveolar hypoventilation; Z68.42 Body mass index [BMI] 45.0-49.9, adult; I48.20 Chronic atrial fibrillation, unspecified; F33.8 Other recurrent depressive disorders; Z71.3 Dietary counseling and surveillance; Z79.01 Long term (current) use of anticoagulants; I12.9 Hypertensive chronic kidney disease with stage 1 through stage 4 chronic kidney disease, or unspecified chronic kidney disease; E11.22 Type 2 diabetes mellitus with diabetic chronic kidney disease; N18.30 Chronic kidney disease, stage 3 unspecified; Z79.4 Long term (current) use of insulin; N93.9 Abnormal uterine and vaginal bleeding, unspecified; E11.42 Type 2 diabetes mellitus with diabetic polyneuropathy; I25.10 Atherosclerotic heart disease of native coronary artery without angina pectoris; E78.5 Hyperlipidemia, unspecified; E03.9 Hypothyroidism, unspecified; F41.9 Anxiety disorder, unspecified; K21.9 Gastro-esophageal reflux disease without esophagitis; G89.4 Chronic pain syndrome; Z20.822 Contact with and (suspected) exposure to COVID-19; Z99.3 Dependence on wheelchair; Z74.01 Bed confinement status
CPT/HCPCS: 36415; 36600; 70450; 71045; 71275; 73562; 76830; 76856; 80048; 80053; 80305; 81001; 82550; 82805; 82962; 83036; 83605; 83735; 83880; 84145; 84443; 84484; 85007; 85025; 85610; 85730; 87040; 87077; 87086; 87186; 87635; 93005; 94618; 94762; 96374; 99285; J0696; J1940; Q9967

== ENCOUNTER → 2020-09-01 13:05 | Outpatient (ROUT) | payer MEDICARE, OTHER, SELFPAY ==
[2020-08-22 00:04] VITALS: BMI 46.7
[2020-09-01 13:13] LABS: Add Manual Diff / Slide Review NO; Basophils Absolute Auto 0 /uL (0-100); Basophils Percent Auto 0.4 % (0-2); Eosinophils Absolute Auto 100 /uL (0-450); Eosinophils Percent Auto 0.5 % (2-4); Hematocrit 36.3 % (36-46); Hemoglobin 11.7 g/dL (12.0-16.0); Lymphocytes Absolute Auto 1700 /uL (1100-4500); Lymphocytes Percent Auto 13.2 % (25-40); Mean Corpuscular HGB Conc 32.3 % (30-36); Mean Corpuscular Hemoglobin 30.6 PG (26-34); Mean Corpuscular Volume 94.6 fL (80-100); Monocytes Absolute Auto 3200 /uL (0-900); Monocytes Percent Auto 25.2 % (3-14); Neutrophils Absolute Auto 7700 /uL (1500-7000); Neutrophils Percent Auto 60.7 % (50-75); Platelet Count 301 X10^3/uL (150-400); Red Blood Cell Count 3.84 X10^6/uL (4.0-5.2); Red Cell Distribution Width 14.4 % (11.6-14.8); White Blood Cell Count 12.8 X10^3/uL (4.5-11.0)
[2020-09-01 13:21] LABS: BUN Creatinine Ratio 23.8 (6-22); Blood Urea Nitrogen 20 mg/dL (7-17); Calcium 10.1 mg/dL (8.4-10.2); Carbon Dioxide 34 mmol/L (22-32); Chloride 98 mmol/L (98-107); Estimated Glomerular Filt Rate > 60.0 mL/min (>60); Glucose 129 mg/dL (80-110); HEMOLYSIS < 15 (0-50); Potassium 4.7 mmol/L (3.4-5.1); Sodium 138 mmol/L (137-145)
== END ==
PROVIDERS: Visit Provider Nurse Practitioner Family
DX: J18.9 Pneumonia, unspecified organism (principal); R41.82 Altered mental status, unspecified
CPT/HCPCS: 80048; 85025

== ENCOUNTER 2020-09-01 17:00 | Emergency (ER) | payer MEDICARE, OTHER, SELFPAY ==
[2020-08-22 00:04] VITALS: BMI 46.7
[2020-09-01] VITALS (8 sets, daily range): BP systolic 131–144; BP diastolic 60–65; PULSE 59–66; RESP 16; TEMP 37.1; O2SAT 95–100; BMI 61.7
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
--- NOTE | 2020-09-01 18:16 | DI.CT.S_ITS ---
PROCEDURE: CT LE RT W CON INDICATIONS: knee pain, ? hemarthrosis, morbid obesity TECHNIQUE: After the administration of intravenous contrast, 3 mm axial sections acquired of the right knee, with coronal and sagittal reformats. COMPARISON: [facility], CR, XR KNEE RT 3V, 08/20/2020, 14:54. FINDINGS: Image quality: There is extensive metallic streak artifact from patient's knee prosthesis markedly limiting evaluation. Bones: There is a right total knee prosthesis redemonstrated with extensive metallic streak artifact limiting evaluation. A mildly displaced periprosthetic fracture is demonstrated within the medial femoral condyle. No tibial or fibular fractures identified. There is mild fatty atrophy of the visualized musculature. No discrete hematoma collections. Soft tissues: There is a moderate size heterogeneous joint effusion consistent with a hemarthrosis. IMPRESSION: 1. Periprosthetic fracture of the medial femoral condyle. 2. Moderate size hemarthrosis. Dictated by: Jean Pierre Almeida M.D. on 09/01/2020 at 19:14 Approved by: Jean Pierre Almeida M.D. on 09/01/2020 at 19:24
[2020-09-01 18:57] LABS: Hemoglobin 11.5 g/dL (12.0-16.0); Mean Corpuscular HGB Conc 32.1 % (30-36); Mean Corpuscular Hemoglobin 30.5 PG (26-34); Mean Corpuscular Volume 95.1 fL (80-100); Platelet Count 299 X10^3/uL (150-400); Red Blood Cell Count 3.78 X10^6/uL (4.0-5.2); Red Cell Distribution Width 14.3 % (11.6-14.8); White Blood Cell Count 13.4 X10^3/uL (4.5-11.0)
[2020-09-01 19:00] LABS: Add Manual Diff / Slide Review YES
[2020-09-01 19:13] LABS: Alanine Aminotransferase 33 IU/L (<35); Albumin 3.8 g/dL (3.5-5.0); Alkaline Phosphatase 111 U/L (38-126); Aspartate Aminotransferase 26 IU/L (14-36); BUN Creatinine Ratio 24.4 (6-22); Bilirubin Total 0.4 mg/dL (0.2-1.3); Blood Urea Nitrogen 21 mg/dL (7-17); Calcium 9.8 mg/dL (8.4-10.2); Carbon Dioxide 35 mmol/L (22-32); Chloride 97 mmol/L (98-107); Estimated Glomerular Filt Rate > 60.0 mL/min (>60); Globulin 3.8 g/dL (1.7-4.1); Glucose 143 mg/dL (80-110); HEMOLYSIS < 15 (0-50); Potassium 4.9 mmol/L (3.4-5.1); Sodium 139 mmol/L (137-145); Total Protein 7.6 g/dL (6.3-8.2)
[2020-09-01 19:24] LABS: NT-proBNP (BNP-Adult 18+) 490 pg/mL (<450); Troponin I < 0.012 ng/mL (0.01-0.034)
[2020-09-01 19:26] LABS: Lactate (Lactic Acid) 1.4 mmol/L (0.7-2.1)
[2020-09-01 19:29] LABS: Neutrophils Absolute Manual 9112 /uL (3000-5900); Total Cells Counted 100
[2020-09-01 19:31] LABS: RBC Morphology Normal Morphology
== END 2020-09-01 21:46 | disposition home or self-care (01) ==
PROVIDERS: Emergency Provider Emergency Medicine
DX: M25.00 Hemarthrosis, unspecified joint (principal); M97.11XA Periprosthetic fracture around internal prosthetic right knee joint, initial encounter; J18.9 Pneumonia, unspecified organism; R41.82 Altered mental status, unspecified
CPT/HCPCS: 36415; 73701; 80048; 80053; 83605; 83880; 84484; 85007; 85025; 99284

== ENCOUNTER → 2020-09-06 07:44 | Outpatient (ROUT) | payer MEDICARE, OTHER, SELFPAY ==
[2020-08-22 00:04] VITALS: BMI 46.7
[2020-09-06 08:33] LABS: Add Manual Diff / Slide Review NO; Basophils Absolute Auto 0 /uL (0-100); Basophils Percent Auto 0.3 % (0-2); Eosinophils Absolute Auto 100 /uL (0-450); Eosinophils Percent Auto 0.8 % (2-4); Hemoglobin 12.1 g/dL (12.0-16.0); Lymphocytes Absolute Auto 2300 /uL (1100-4500); Lymphocytes Percent Auto 19.9 % (25-40); Mean Corpuscular HGB Conc 31.9 % (30-36); Mean Corpuscular Hemoglobin 30.3 PG (26-34); Mean Corpuscular Volume 94.7 fL (80-100); Monocytes Absolute Auto 3000 /uL (0-900); Monocytes Percent Auto 25.4 % (3-14); Neutrophils Absolute Auto 6200 /uL (1500-7000); Neutrophils Percent Auto 53.6 % (50-75); Platelet Count 332 X10^3/uL (150-400); Red Blood Cell Count 4.01 X10^6/uL (4.0-5.2); Red Cell Distribution Width 14.3 % (11.6-14.8); White Blood Cell Count 11.6 X10^3/uL (4.5-11.0)
[2020-09-06 08:46] LABS: BUN Creatinine Ratio 23.9 (6-22); Blood Urea Nitrogen 22 mg/dL (7-17); Calcium 9.8 mg/dL (8.4-10.2); Carbon Dioxide 35 mmol/L (22-32); Chloride 97 mmol/L (98-107); Estimated Glomerular Filt Rate 58.9 mL/min (>60); Glucose 105 mg/dL (80-110); HEMOLYSIS < 15 (0-50); Potassium 4.4 mmol/L (3.4-5.1); Sodium 139 mmol/L (137-145)
== END ==
PROVIDERS: Visit Provider Nurse Practitioner Family
DX: J18.9 Pneumonia, unspecified organism (principal); I50.9 Heart failure, unspecified; F19.20 Other psychoactive substance dependence, uncomplicated
CPT/HCPCS: 36415; 80048; 85025

== ENCOUNTER → 2020-11-17 10:07 | Outpatient (CLI) | payer MEDICARE, OTHER, MEDICAID, SELFPAY ==
[2020-08-22 00:04] VITALS: BMI 46.7
== END ==
PROVIDERS: PCP Nurse Practitioner Family; Referring Provider Nurse Practitioner Family; Visit Provider Nurse Practitioner Family
DX: E11.628 Type 2 diabetes mellitus with other skin complications (principal); L02.212 Cutaneous abscess of back [any part, except buttock and flank]; L08.9 Local infection of the skin and subcutaneous tissue, unspecified; E11.40 Type 2 diabetes mellitus with diabetic neuropathy, unspecified; Z79.4 Long term (current) use of insulin
CPT/HCPCS: 10060; 87070; 87075; 87077; 87186; 87205; 99214

== ENCOUNTER → 2020-12-05 12:08 | Outpatient (CLI) | payer MEDICARE, OTHER, MEDICAID, SELFPAY ==
[2020-08-22 00:04] VITALS: BMI 46.7
== END ==
PROVIDERS: PCP Nurse Practitioner Family; Referring Provider Nurse Practitioner Family; Visit Provider Family Medicine
DX: S21.202A Unspecified open wound of left back wall of thorax without penetration into thoracic cavity, initial encounter (principal); L08.9 Local infection of the skin and subcutaneous tissue, unspecified
CPT/HCPCS: 11042; 87070; 87075; 87077; 87186; 87205; 99213

== ENCOUNTER → 2020-12-12 12:22 | Outpatient (CLI) | payer MEDICARE, OTHER, MEDICAID, SELFPAY ==
[2020-08-22 00:04] VITALS: BMI 46.7
== END ==
PROVIDERS: PCP Nurse Practitioner Family; Referring Provider Nurse Practitioner Family; Visit Provider Family Medicine
DX: E11.628 Type 2 diabetes mellitus with other skin complications (principal); S21.202A Unspecified open wound of left back wall of thorax without penetration into thoracic cavity, initial encounter; L08.9 Local infection of the skin and subcutaneous tissue, unspecified; Z79.2 Long term (current) use of antibiotics
CPT/HCPCS: 97607; 99214

== ENCOUNTER → 2020-12-13 07:44 | Outpatient (ROUT) | payer MEDICARE, OTHER, MEDICAID, SELFPAY ==
[2020-08-22 00:04] VITALS: BMI 46.7
[2020-12-13 08:16] LABS: BUN Creatinine Ratio 14.2 (6-22); Blood Urea Nitrogen 15 mg/dL (7-17); Calcium 9.4 mg/dL (8.4-10.2); Carbon Dioxide 30 mmol/L (22-32); Chloride 103 mmol/L (98-107); Glucose 137 mg/dL (80-110); HEMOLYSIS < 15 (0-50); Potassium 4.4 mmol/L (3.4-5.1); Sodium 140 mmol/L (137-145)
== END ==
PROVIDERS: PCP Nurse Practitioner Family; Visit Provider Family Medicine
DX: L08.9 Local infection of the skin and subcutaneous tissue, unspecified (principal)
CPT/HCPCS: 36415; 80048

== ENCOUNTER → 2020-12-19 14:02 | Outpatient (CLI) | payer MEDICARE, OTHER, MEDICAID, SELFPAY ==
[2020-08-22 00:04] VITALS: BMI 46.7
== END ==
PROVIDERS: PCP Nurse Practitioner Family; Referring Provider Registered Nurse; Visit Provider Family Medicine
DX: S21.202A Unspecified open wound of left back wall of thorax without penetration into thoracic cavity, initial encounter (principal)
CPT/HCPCS: 97597

== ENCOUNTER → 2021-01-02 13:37 | Outpatient (CLI) | payer MEDICARE, OTHER, MEDICAID, SELFPAY ==
[2020-08-22 00:04] VITALS: BMI 46.7
== END ==
PROVIDERS: PCP Nurse Practitioner Family; Referring Provider Nurse Practitioner Family; Visit Provider Family Medicine
DX: S21.202A Unspecified open wound of left back wall of thorax without penetration into thoracic cavity, initial encounter (principal)
CPT/HCPCS: 97597

== ENCOUNTER → 2021-01-09 14:24 | Outpatient (CLI) | payer MEDICARE, OTHER, MEDICAID, SELFPAY ==
[2020-08-22 00:04] VITALS: BMI 46.7
== END ==
PROVIDERS: PCP Nurse Practitioner Family; Referring Provider Nurse Practitioner Family; Visit Provider Family Medicine
DX: E11.628 Type 2 diabetes mellitus with other skin complications (principal); S21.202D Unspecified open wound of left back wall of thorax without penetration into thoracic cavity, subsequent encounter; Z68.43 Body mass index [BMI] 50.0-59.9, adult
CPT/HCPCS: 99212; 99213

== ENCOUNTER → 2021-03-14 13:56 | Outpatient (CLI) | payer MEDICARE, OTHER, MEDICAID, SELFPAY ==
[2020-08-22 00:04] VITALS: BMI 46.7
== END ==
PROVIDERS: PCP Nurse Practitioner Family; Referring Provider Nurse Practitioner Family; Visit Provider Family Medicine
DX: S21.201A Unspecified open wound of right back wall of thorax without penetration into thoracic cavity, initial encounter (principal); L08.9 Local infection of the skin and subcutaneous tissue, unspecified; E11.628 Type 2 diabetes mellitus with other skin complications
CPT/HCPCS: 11042; 87070; 87075; 87077; 87186; 87205; 99213; 99214

== ENCOUNTER → 2021-03-21 08:23 | Outpatient (ROUT) | payer MEDICARE, OTHER, MEDICAID, SELFPAY ==
[2020-08-22 00:04] VITALS: BMI 46.7
[2021-03-21 11:50] LABS: Add Manual Diff / Slide Review NO; Basophils Absolute Auto 0 /uL (0-100); Basophils Percent Auto 0.4 % (0-2); Eosinophils Absolute Auto 0 /uL (0-450); Eosinophils Percent Auto 0.3 % (2-4); Hematocrit 37.6 % (36-46); Hemoglobin 12.3 g/dL (12.0-16.0); Lymphocytes Absolute Auto 2500 /uL (1100-4500); Lymphocytes Percent Auto 29.4 % (25-40); Mean Corpuscular HGB Conc 32.6 % (30-36); Mean Corpuscular Hemoglobin 30.9 PG (26-34); Mean Corpuscular Volume 94.7 fL (80-100); Monocytes Absolute Auto 2100 /uL (0-900); Monocytes Percent Auto 24.5 % (3-14); Neutrophils Absolute Auto 3900 /uL (1500-7000); Neutrophils Percent Auto 45.4 % (50-75); Platelet Count 178 X10^3/uL (150-400); Red Blood Cell Count 3.97 X10^6/uL (4.0-5.2); Red Cell Distribution Width 14.5 % (11.6-14.8); White Blood Cell Count 8.5 X10^3/uL (4.5-11.0)
[2021-03-21 12:13] LABS: Alanine Aminotransferase 15 IU/L (<35); Albumin 3.9 g/dL (3.5-5.0); Albumin Globulin Ratio 1.4 (1.0-2.8); Alkaline Phosphatase 73 U/L (38-126); Aspartate Aminotransferase 24 IU/L (14-36); BUN Creatinine Ratio 17.5 (6-22); Bilirubin Total 0.4 mg/dL (0.2-1.3); Blood Urea Nitrogen 17 mg/dL (7-17); Calcium 9.2 mg/dL (8.4-10.2); Carbon Dioxide 32 mmol/L (22-32); Chloride 98 mmol/L (98-107); Estimated Glomerular Filt Rate 55.4 mL/min (>60); Globulin 2.8 g/dL (1.7-4.1); Glucose 128 mg/dL (80-110); HEMOLYSIS < 15 (0-50); Potassium 4.2 mmol/L (3.4-5.1); Sodium 140 mmol/L (137-145); Total Protein 6.7 g/dL (6.3-8.2)
== END ==
PROVIDERS: PCP Nurse Practitioner Family; Visit Provider Nurse Practitioner Gerontology
DX: N18.9 Chronic kidney disease, unspecified (principal)
CPT/HCPCS: 36415; 80053; 85025

== ENCOUNTER → 2021-03-21 14:13 | Outpatient (CLI) | payer MEDICARE, OTHER, MEDICAID, SELFPAY ==
[2020-08-22 00:04] VITALS: BMI 46.7
== END ==
PROVIDERS: PCP Nurse Practitioner Family; Referring Provider Nurse Practitioner Family; Visit Provider Family Medicine
DX: S21.201A Unspecified open wound of right back wall of thorax without penetration into thoracic cavity, initial encounter (principal); L08.9 Local infection of the skin and subcutaneous tissue, unspecified; N18.9 Chronic kidney disease, unspecified
CPT/HCPCS: 11042; 36415; 80053; 85025; 99213

== ENCOUNTER → 2021-03-28 13:54 | Outpatient (CLI) | payer MEDICARE, OTHER, MEDICAID, SELFPAY ==
[2020-08-22 00:04] VITALS: BMI 46.7
== END ==
PROVIDERS: PCP Nurse Practitioner Family; Referring Provider Nurse Practitioner Family; Visit Provider Family Medicine
DX: L02.212 Cutaneous abscess of back [any part, except buttock and flank] (principal); L08.89 Other specified local infections of the skin and subcutaneous tissue; S21.201A Unspecified open wound of right back wall of thorax without penetration into thoracic cavity, initial encounter; E11.628 Type 2 diabetes mellitus with other skin complications
CPT/HCPCS: 15271; Q4110

== ENCOUNTER → 2021-04-18 10:14 | Outpatient (CLI) | payer MEDICARE, OTHER, MEDICAID, SELFPAY ==
[2020-08-22 00:04] VITALS: BMI 46.7
== END ==
PROVIDERS: PCP Nurse Practitioner Family; Referring Provider Nurse Practitioner Family; Visit Provider Family Medicine
DX: S21.201D Unspecified open wound of right back wall of thorax without penetration into thoracic cavity, subsequent encounter (principal); E11.9 Type 2 diabetes mellitus without complications
CPT/HCPCS: 99212; 99214

== ENCOUNTER → 2021-06-22 11:44 | Outpatient (ROUT) | payer MEDICARE, OTHER, MEDICAID, SELFPAY ==
[2020-08-22 00:04] VITALS: BMI 46.7
[2021-06-23 11:36] LABS: Fecal Immunochemical Test Negative (Negative)
== END ==
PROVIDERS: PCP Nurse Practitioner Family; Visit Provider Internal Medicine
DX: Z13.9 Encounter for screening, unspecified (principal)
CPT/HCPCS: 82274

== ENCOUNTER → 2021-07-25 10:05 | Outpatient (ROUT) | payer MEDICARE, OTHER, MEDICAID, SELFPAY ==
[2020-08-22 00:04] VITALS: BMI 46.7
[2021-07-25 10:21] LABS: Add Manual Diff / Slide Review NO; Basophils Absolute Auto 0 /uL (0-100); Basophils Percent Auto 0.2 % (0-2); Eosinophils Absolute Auto 0 /uL (0-450); Eosinophils Percent Auto 0.2 % (2-4); Hematocrit 41.4 % (36-46); Hemoglobin 13.5 g/dL (12.0-16.0); Lymphocytes Absolute Auto 1800 /uL (1100-4500); Lymphocytes Percent Auto 17.4 % (25-40); Mean Corpuscular HGB Conc 32.6 % (30-36); Mean Corpuscular Hemoglobin 30.8 PG (26-34); Mean Corpuscular Volume 94.6 fL (80-100); Monocytes Absolute Auto 2800 /uL (0-900); Monocytes Percent Auto 27.1 % (3-14); Neutrophils Absolute Auto 5600 /uL (1500-7000); Neutrophils Percent Auto 55.1 % (50-75); Platelet Count 176 X10^3/uL (150-400); Red Blood Cell Count 4.38 X10^6/uL (4.0-5.2); White Blood Cell Count 10.2 X10^3/uL (4.5-11.0)
[2021-07-25 10:40] LABS: Alanine Aminotransferase 23 IU/L (<35); Albumin 4.1 g/dL (3.5-5.0); Albumin Globulin Ratio 1.2 (1.0-2.8); Alkaline Phosphatase 76 U/L (38-126); Aspartate Aminotransferase 25 IU/L (14-36); BUN Creatinine Ratio 20.5 (6-22); Bilirubin Total 0.6 mg/dL (0.2-1.3); Blood Urea Nitrogen 17 mg/dL (7-17); Calcium 9.2 mg/dL (8.4-10.2); Carbon Dioxide 30 mmol/L (22-32); Chloride 99 mmol/L (98-107); Estimated Glomerular Filt Rate > 60.0 mL/min (>60); Globulin 3.3 g/dL (1.7-4.1); Glucose 312 mg/dL (80-110); HEMOLYSIS < 15 (0-50); Potassium 4.4 mmol/L (3.4-5.1); Sodium 137 mmol/L (137-145); Total Protein 7.4 g/dL (6.3-8.2)
[2021-07-25 11:35] LABS: Thyroid Stimulating Hormone 1.99 uIU/mL (0.47-4.68)
== END ==
PROVIDERS: PCP Nurse Practitioner Family; Visit Provider Internal Medicine
DX: R61 Generalized hyperhidrosis (principal)
CPT/HCPCS: 80053; 84443; 85025

== ENCOUNTER → 2021-08-01 07:27 | Outpatient (ROUT) | payer MEDICARE, OTHER, MEDICAID, SELFPAY ==
[2020-08-22 00:04] VITALS: BMI 46.7
[2021-08-01 08:42] LABS: Hemoglobin A1C% w Est Avg Glu 9.9 % (4.0-6.0)
== END ==
PROVIDERS: PCP Nurse Practitioner Family; Visit Provider Nurse Practitioner Gerontology
DX: E11.9 Type 2 diabetes mellitus without complications (principal)
CPT/HCPCS: 36415; 83036

== ENCOUNTER 2021-08-28 20:50 | Inpatient (IN) | payer MEDICARE, OTHER, MEDICAID, SELFPAY ==
[2020-08-22 00:04] VITALS: BMI 46.7
[2021-08-28] VITALS (16 sets, daily range): BP systolic 111–130; BP diastolic 58–80; PULSE 68–78; RESP 11–24; TEMP 36.6; O2SAT 89–96
--- NOTE | 2021-08-28 20:53 | DI.RAD.S_ITS ---
PROCEDURE: XR CHEST 1V INDICATIONS: suspected sepsis TECHNIQUE: One view of the chest was acquired. COMPARISON: [facility], CT, CT ANGIO CHEST PE PROTOCOL, 08/21/2020, 20:14. [facility], CR, XR CHEST FOR PICC 1V, 11/26/2018, 17:54. [facility], CR, XR CHEST 1V, 08/21/2020, 18:00. [facility], CR, XR CHEST 1V, 08/24/2020, 9:19. FINDINGS: Surgical changes and devices: None. Lungs and pleura: No definite acute consolidation. There are linear opacities redemonstrated in the left lung base likely representing atelectasis or scarring. No pleural effusions or pneumothorax. Mediastinum: Mediastinal contours are unchanged. Heart size is enlarged. Bones and chest wall: No suspicious bony lesions. Overlying soft tissues appear unremarkable. IMPRESSION: 1. No definite acute cardiopulmonary disease. 2. Probable mild atelectasis or scarring in the left lung base. Dictated by: Jean Pierre Almeida M.D. on 08/28/2021 at 22:05 Approved by: Jean Pierre Almeida M.D. on 08/28/2021 at 22:08
[2021-08-28 21:05] LABS: Add Manual Diff / Slide Review NO; Basophils Absolute Auto 100 /uL (0-100); Basophils Percent Auto 0.6 % (0-2); Eosinophils Absolute Auto 0 /uL (0-450); Eosinophils Percent Auto 0.3 % (2-4); Hematocrit 42.7 % (36-46); Hemoglobin 13.9 g/dL (12.0-16.0); Lymphocytes Absolute Auto 2700 /uL (1100-4500); Lymphocytes Percent Auto 20.8 % (25-40); Mean Corpuscular HGB Conc 32.5 % (30-36); Mean Corpuscular Volume 95.4 fL (80-100); Monocytes Absolute Auto 3700 /uL (0-900); Monocytes Percent Auto 29.3 % (3-14); Neutrophils Absolute Auto 6300 /uL (1500-7000); Platelet Count 211 X10^3/uL (150-400); Red Blood Cell Count 4.48 X10^6/uL (4.0-5.2); White Blood Cell Count 12.8 X10^3/uL (4.5-11.0)
[2021-08-28 21:11] LABS: INR 1.7 (0.9-1.3); Prothrombin Time 18.9 SECONDS (10.1-12.7)
[2021-08-28 21:14] LABS: PTT Partial Thromboplastin Tim 43 SECONDS (26.4-36.2)
[2021-08-28 21:16] LABS: Lactate (Lactic Acid) 1.9 mmol/L (0.7-2.1)
[2021-08-28 21:17] LABS: Alanine Aminotransferase 21 IU/L (<35); Albumin 4.2 g/dL (3.5-5.0); Albumin Globulin Ratio 1.1 (1.0-2.8); Alkaline Phosphatase 79 U/L (38-126); Aspartate Aminotransferase 24 IU/L (14-36); BUN Creatinine Ratio 19.1 (6-22); Bilirubin Total 0.6 mg/dL (0.2-1.3); Blood Urea Nitrogen 22 mg/dL (7-17); Calcium 8.8 mg/dL (8.4-10.2); Carbon Dioxide 33 mmol/L (22-32); Chloride 99 mmol/L (98-107); Creatine Kinase < 20 U/L (30-135); Estimated Glomerular Filt Rate 45.5 mL/min (>60); Globulin 3.7 g/dL (1.7-4.1); Glucose 222 mg/dL (80-110); Lipase 48 U/L (23-300); Sodium 141 mmol/L (137-145); Total Protein 7.9 g/dL (6.3-8.2)
[2021-08-28 21:22] LABS: D Dimer < 200 ng/mL (<230)
[2021-08-28 21:29] LABS: NT-proBNP (BNP-Adult 18+) 696 pg/mL (<450); Troponin I < 0.012 ng/mL (0.01-0.034)
[2021-08-28 21:34] LABS: Procalcitonin 0.38 ng/mL (<0.5)
[2021-08-28 21:53] LABS: HCO3 ABG 34 mmol/L (22-26); Oxygen Saturation ABG 67 % (95-100); PCO2 ABG 64.4 mmHg (35-45); PO2 ABG 38 mmHg (80-100); TCO2 ABG 36 mmol/L (21-31); pH ABG 7.35 (7.35-7.45)
[2021-08-28 21:54] LABS: Fractionated Inspired Oxygen 36
[2021-08-28 22:14] LABS: COVID19 - ADMIT (NP swab/PCR) Negative (Negative)
[2021-08-28] MEDS: ALBUTEROL/IPRATROPIUM 3 ML AMPUL INH (22:40)
[2021-08-28] MEDS: methylPREDNISolone 125 MG/2 ML VIAL IV (22:40)
[2021-08-28 23:26] LABS: HEMOLYSIS 25 (0-50); Magnesium 1.6 mg/dL (1.6-2.3)
[2021-08-29] VITALS (15 sets, daily range): BP systolic 116–149; BP diastolic 55–73; PULSE 61–76; RESP 13–24; TEMP 36.1–36.6; O2SAT 89–95; BMI 49.4
--- NOTE | 2021-08-29 00:20 | PC.NURSE ---
Pt AAO x 3 on arrival to ED with EMS. Per EMS report pt was found with sats in 60's. Pt was placed on 3L and propped up in bed. Rec'd breathing treatment in ambulance. 89-94% on 3L. ETCO2 51. HR 70's. Labs drawn and pt given 2nd breathing tx and steroids per JUL. States she is feeling better. Spoke to daughter Jenny, who states pt is WC bound and does nothing at her care center and she is concerned she is developing PNA. MD made aware of pt's concerns and CXR pending. Pt in NAD at this time and appears sleeping, on 3L NC, and observed chest rise and fall. Pt swabbed for COVID which is negative. Awaiting further orders. Report given to night RN.
--- NOTE | 2021-08-29 01:24 | ED.SOB ---
HPI - SOB/Dyspnea General Chief Complaint: Shortness of Breath/Dyspnea Stated Complaint: COPD, Decreased LOC Time Seen by Provider: 08/28/21 20:52 Source: patient Mode of arrival: EMS Limitations: no limitations History of Present Illness HPI Narrative: Patient is a 80-year-old resident of his [facility]. she has a history of respiratory failure, she was admitted here about 1 week ago. Additionally she has a history of chronic AFib for which she receives chronic anticoagulation, hypertensive kidney disease stage III, sleep apnea, type 2 diabetes with peripheral neuropathy, CAD, hyperlipidemia, and DVT. The recent wrist before failure was thought to be multifactorial, including overuse of opiates, obesity, and possible aspiration. Paramedics were called, O2 sats were 60% upon their arrival. She has no history of CHF or COPD. She quit smoking in her 20s. She approved quickly to 94% with a non-rebreather mask, weaned to nasal cannula oxygen. Echocardiogram June 2019 showed normal LV function with EF of 55-65%. There is no focal wall abnormality. AFib is noted. In returning to the ER today, patient notes no recent illness. She has not been experiencing chest pain, cough, or dyspnea on exertion. She denies fever or chills. Related Data Home Medications Medication Instructions Recorded Confirmed nitroglycerin 0.4 mg sublingual 0.4 mg SUBLINGUAL PRN PRN #0 07/05/16 08/22/20 tablet (Nitrostat) ondansetron HCl 4 mg tablet 4 mg PO Q4HP PRN #0 04/08/17 08/22/20 nystatin 100,000 unit/gram topical 1 applic TOPICAL TID 12/04/17 08/22/20 powder aripiprazole 5 mg tablet 2.5 mg PO DAILY 04/03/18 08/22/20 aspirin 81 mg tablet,delayed 81 mg PO DAILY 04/03/18 08/22/20 release (Aspir-Low) atorvastatin 40 mg tablet 40 mg PO BEDTIME 04/03/18 08/22/20 diltiazem HCl 240 mg capsule,24 240 mg PO DAILY 04/03/18 08/22/20 hr,extended release docusate sodium 100 mg tablet 200 mg PO BID 04/03/18 08/22/20 mirabegron 25 mg tablet,extended 25 mg PO DAILY 04/03/18 08/22/20 release 24 hr (Myrbetriq) potassium chloride 10 mEq 10 meq PO DAILY 04/03/18 08/22/20 capsule,extended release acetaminophen 500 mg tablet 1,000 mg PO BID MDD 3 g 04/14/18 08/22/20 insulin glargine 100 unit/mL 80 units SUBCUT BID 06/06/18 08/22/20 subcutaneous solution (Lantus U-100 Insulin) insulin lispro 100 unit/mL See Rx Instructions .ROUTE .COMPLEX 06/06/18 08/22/20 subcutaneous solution (Humalog U-100 Insulin) melatonin 3 mg tablet 3 mg PO BEDTIME PRN 06/06/18 08/22/20 multivitamin with minerals 1 cap PO DAILY 06/06/18 08/22/20 polyethylene glycol 3350 17 17 g PO DAILY PRN 06/06/18 08/22/20 gram/dose oral powder sennosides 8.6 mg tablet (senna) 17.2 mg PO BID 06/06/18 08/22/20 apixaban 5 mg tablet (Eliquis) 5 mg PO BID 07/07/19 08/22/20 duloxetine 30 mg capsule,delayed 90 mg PO DAILY 07/07/19 08/22/20 release furosemide 80 mg tablet 80 mg PO DAILY 07/07/19 08/22/20 gabapentin 400 mg capsule 1,000 mg PO TID 07/07/19 08/22/20 gabapentin 600 mg tablet 1,000 mg PO TID 07/07/19 08/22/20 hydrocodone bitartrate 40 mg 40 mg PO QAM 07/07/19 08/22/20 tablet,crush resist,extended rel. 24hr (Hysingla ER) levothyroxine 100 mcg tablet 100 mcg PO DAILY 07/07/19 08/22/20 lisinopril 20 mg tablet 20 mg PO BID 07/07/19 08/22/20 lorazepam 1 mg tablet 1 mg PO BEDTIME PRN 07/07/19 08/22/20 nystatin 100,000 unit/gram topical 1 applic TOPICAL BID 07/07/19 08/22/20 cream pantoprazole 40 mg tablet,delayed 40 mg PO DAILY 07/07/19 08/22/20 release bupropion HCl 100 mg tablet,12 hr 100 mg PO BID 07/07/20 08/22/20 sustained-release Previous Rx's Medication Instructions Recorded hydrocodone 5 mg-acetaminophen 325 1 tab PO QID PRN #10 tab 08/20/20 mg tablet Allergies Allergy/AdvReac Type Severity Reaction Status Date / Time adhesive [ADHESIVE] Allergy Mild ALLERGY TO Verified 09/01/20 17:16 TAPE Review of Systems Review of Systems Narrative: Patient initially stated only that she did not feel well. No other details are available. She has no recall to her initial care from EMS. Patient History Medical History Acute on chronic respiratory failure with hypoxia and hypercapnia Anemia Atherosclerotic heart disease of [place] coronary artery without angina pectoris Atrial fibrillation Chronic kidney disease, stage 3 Chronic pain syndrome Diabetes Gastroesophageal reflux disease Hereditary and idiopathic neuropathy, unspecified Hyperlipidemia Hypertension Hypertensive chronic kidney disease with stage 1 through stage 4 chronic kidney disease, or unspecified chronic kidney disease Hypothyroidism Hypoventilation associated with obesity syndrome Insomnia jail current use of anticoagulant therapy Major depressive disorder Obesity Obstructive sleep apnea Urinary incontinence Venous insufficiency (chronic) (peripheral) Wheelchair bound Surgical History History of abdominal hysterectomy History of bilateral knee replacement History of toe surgery Family History Father Stroke Mother Cancer Social History household members: caregiver Smoking Status: Former smoker alcohol intake: never Smoking Status: Former smoker alcohol intake frequency: 0-2 drinks per day Substance Use Type: does not use Exam Initial Vital Signs Initial Vital Signs: Vital Signs Pulse Rate 73 08/28/21 20:50 Blood Pressure 129/63 08/28/21 20:50 Pulse Oximetry 90 L 08/28/21 20:50 Const General: cooperative, acute distress and ill appearing [facility] Head: normocephalic and atraumatic Face and sinus: normal facial exam Mouth: oral mucosae normal and No lip normal Throat: posterior oropharynx normal Eyes Conjunctivae: conjunctivae normal Sclera: sclerae normal Neck Neck: No JVD Thyroid: thyroid normal Chest Chest: normal inspection of the chest Resp Other: Diffuse wheezes. No rales or rhonchi. Cardio Rate: regular rate Rhythm: regular rhythm Heart Sounds: S1 normal, S2 normal and no murmurs GI Other: Morbidly obese. No focal discomfort with palpation. No masses. Bowel sounds normal. Back/Spine/Pelvis Back: normal to inspection and No back tenderness Skin General: no rashes or lesions noted Neuro Other: Signing not yet responsive. No focal motor deficits. Extrem General: no calf tenderness and edema (2+ bilaterally in the lower extremities.) Psych Appearance: other (See HPI) Course Course Course Narrative: The patient was initially managed with neb treatments, Solu-Medrol was given. It is noted she is in CHF with a BNP of 690. She receives oral Lasix, IV Lasix was given. She is appropriately anticoagulated. There was no significant rhythm concerns, no evidence of ACS. She has respiratory failure from likely multiple entities. Her lungs are clear prior to admission. She knows she is breathing much better. She is more coherent. She will be admitted to the hospitalist for ongoing care. A UTI has been realized from lab data, although the patient was not complain of symptoms. This will be addressed as an inpatient by hospitalist. Orders Ordered: ED Orders 08/28/21 21:19 Blood Culture Stat 08/28/21 22:32 Consult to Respiratory Therapy Evaluate & Treat EKG-12 Lead Stat Acetaminophen (Acetaminophen 325 Mg Tablet) 650 mg PO Q6HR PRN PRN Reason: Fever/Mild Pain (1-3) Apixaban (Apixaban 5 Mg Tablet) 5 mg PO BID [facility] Aripiprazole (Aripiprazole 2 Mg Tablet) 2 mg PO DAILY [facility] Aspirin (Aspirin Ec 81 Mg Tablet) 81 mg PO DAILY [facility] Atorvastatin Calcium (Atorvastatin 20 Mg Tablet) 40 mg PO BEDTIME [facility] Bupropion HCl (Bupropion Sr 100 Mg Tab) 100 mg PO BID [facility] Dextrose (Dextrose 50 % In Water 25 Gm/50 Ml Syringe) 25 gm IV PRN PRN PRN Reason: Hypoglycemia Diltiazem HCl (Diltiazem Cd 240 Mg Cap) 240 mg PO DAILY [facility] Docusate Sodium (Docusate 100 Mg Capsule) 100 mg PO BID [facility] Duloxetine HCl (Duloxetine 30 Mg Capsule) 90 mg PO DAILY [facility] Gabapentin (Gabapentin 600 Mg Tablet) 600 mg PO TID [facility] Ceftriaxone Sodium 1,000 mg/ (Sodium Chloride) 100 mls @ 200 mls/hr IV Q24H [facility] Insulin Glargine (Insulin Glargine 100 Unit/Ml 3ml Pen) 76 unit SUBCUT 0800 [facility] Insulin Glargine (Insulin Glargine 100 Unit/Ml 3ml Pen) 100 unit SUBCUT 2100 [facility] Insulin Human Lispro (Insulin Lispro 100 Unit/Ml 3ml Vial) 0 unit SUBCUT ACHS [facility]; Protocol Insulin Human Regular (Insulin Regular 100 Unit/Ml 3 Ml Vial) 0 unit SUBCUT ACHS [facility]; Protocol Levothyroxine Sodium (Levothyroxine 100 Mcg Tablet) 100 mcg PO DAILY@0600 [facility] Last Admin: 08/29/21 05:13 Dose: 100 mcg Documented by: STEVIE Lisinopril (Lisinopril 20 Mg Tablet) 20 mg PO BID [facility] Naloxone HCl (Naloxone 0.4 Mg/Ml Vial) 0.2 mg IV Q2MIN PRN PRN Reason: Opiate Reversal Nystatin (Nystatin Cream 30 Gm) 1 applic TOP BID [facility] Ondansetron HCl (Ondansetron 4 Mg/2 Ml Inj) 4 mg IV Q6HR PRN PRN Reason: Nausea And Vomiting Pantoprazole Sodium (Pantoprazole Dr 40 Mg Tablet) 40 mg PO 0700 [facility] Polyethylene Glycol (Polyethylene Glycol 3350 17 Gm Powd.Pack) 17 gm PO DAILY PRN PRN Reason: Constipation Sennosides (Sennosides 8.6 Mg Tablet) 8.6 mg PO BID [facility] Tramadol HCl (Tramadol 50 Mg Tablet) 50 mg PO TID PRN PRN Reason: Pain, Moderate (4-6) Trazodone HCl (Trazodone 50 Mg Tablet) 50 mg PO BEDTIME [facility] Discontinued Medications Albuterol/Ipratropium (Albuterol/Ipratropium 3 Ml Ampul) 3 ml INH NOW ONE Stop: 08/28/21 22:33 Last Admin: 08/28/21 22:40 Dose: 3 ml Documented by: AMBER Furosemide (Furosemide 100 Mg/10 Ml Vial) 80 mg IV NOW ONE Stop: 08/29/21 01:35 Last Admin: 08/29/21 02:48 Dose: 80 mg Documented by: LUCIO Ceftriaxone Sodium 2,000 mg/ (Sodium Chloride) 100 mls @ 200 mls/hr IV NOW ONE Stop: 08/29/21 03:55 Last Admin: 08/29/21 05:06 Dose: 200 mls/hr Documented by: STEVIE Insulin Glargine (Insulin Glargine 100 Unit/Ml 3ml Pen) 80 unit SUBCUT 0800 [facility] Insulin Glargine (Insulin Glargine 100 Unit/Ml 3ml Pen) 80 unit SUBCUT 2100 [facility] Insulin Human Lispro (Insulin Lispro 100 Unit/Ml 3ml Vial) 5 unit SUBCUT ACHS [facility]; Protocol Methylprednisolone (Methylprednisolone 125 Mg/2 Ml Vial) 125 mg IV NOW ONE Stop: 08/28/21 22:33 Last Admin: 08/28/21 22:40 Dose: 125 mg Documented by: AMBER Vital Signs Vital signs: Vital Signs - 8 hr 08/28/21 22:30 08/28/21 22:45 08/28/21 23:00 Pulse Rate 69 71 72 Respiratory Rate 16 18 11 L Blood Pressure Pulse Oximetry 92 92 96 08/28/21 23:15 08/28/21 23:30 08/28/21 23:45 Pulse Rate 70 74 74 Respiratory Rate 12 11 L 11 L Blood Pressure Pulse Oximetry 96 94 94 08/28/21 23:58 08/29/21 00:00 08/29/21 00:15 Pulse Rate 72 71 73 Respiratory Rate 18 19 18 Blood Pressure 111/58 L Pulse Oximetry 95 91 91 08/29/21 00:30 08/29/21 00:38 08/29/21 00:45 Pulse Rate 71 72 76 Respiratory Rate 14 18 15 Blood Pressure 126/64 126/61 Pulse Oximetry 89 L 91 08/29/21 01:00 Pulse Rate 74 Respiratory Rate 20 Blood Pressure 124/67 Pulse Oximetry 91 MDM - SOB/Dyspnea Lab Data Result diagrams: 08/29/21 04:11 08/29/21 04:11 Labs: Lab Results 08/28/21 08/28/21 08/28/21 Range/Units 20:00 20:54 20:54 WBC 12.8 H (4.5-11.0) X10^3/uL RBC 4.48 (4.0-5.2) X10^6/uL Hgb 13.9 (12.0-16.0) g/dL Hct 42.7 (36-46) % MCV 95.4 (80-100) fL MCH 31.0 (26-34) PG MCHC 32.5 (30-36) % RDW 15.0 H (11.6-14.8) % Plt Count 211 (150-400) X10^3/uL Neut % (Auto) 49.0 L (50-75) % Lymph % (Auto) 20.8 L (25-40) % Morgan % (Auto) 29.3 H (3-14) % Eos % (Auto) 0.3 L (2-4) % Baso % (Auto) 0.6 (0-2) % Neut # (Auto) 6300 (0375-8691) /uL Lymph # (Auto) 2700 (2607-4387) /uL Morgan # (Auto) 3700 H (0-900) /uL Eos # (Auto) 0 (0-450) /uL Baso # (Auto) 100 (0-100) /uL PT (10.1-12.7) SECONDS INR (0.9-1.3) APTT (26.4-36.2) SECONDS D-Dimer (<230) ng/mL ABG pH 7.35 (7.35-7.45) ABG pCO2 64.4 H* (35-45) mmHg ABG pO2 38 L* (80-100) mmHg ABG HCO3 34 H (22-26) mmol/L ABG Total CO2 36 H (21-31) mmol/L ABG O2 Saturation 67 L* (95-100) % ABG Base Excess 9.0 H (-2-2) mmol/L FiO2 36 Sodium 141 (137-145) mmol/L Potassium 5.0 (3.4-5.1) mmol/L Chloride 99 (98-107) mmol/L Carbon Dioxide 33 H (22-32) mmol/L BUN 22 H (7-17) mg/dL Creatinine 1.15 H (0.52-1.04) mg/dL Estimated GFR 45.5 L (>60) mL/min BUN/Creatinine Ratio 19.1 (6-22) Glucose 222 H (80-110) mg/dL Lactate (0.7-2.1) mmol/L Calcium 8.8 (8.4-10.2) mg/dL Magnesium 1.6 (1.6-2.3) mg/dL Total Bilirubin 0.6 (0.2-1.3) mg/dL AST 24 (14-36) IU/L ALT 21 (<35) IU/L Alkaline Phosphatase 79 (38-126) U/L Total Creatine Kinase < 20 L (30-135) U/L CK-MB (CK-2) TNP CK-MB (CK-2) Rel Index TNP Troponin I < 0.012 (0.01-0.034) ng/mL NT-Pro-B Natriuret Pep 696 H (<450) pg/mL Total Protein 7.9 (6.3-8.2) g/dL Albumin 4.2 (3.5-5.0) g/dL Globulin 3.7 (1.7-4.1) g/dL Albumin/Globulin Ratio 1.1 (1.0-2.8) Lipase 48 (23-300) U/L Procalcitonin 0.38 (<0.5) ng/mL SARS-CoV-2 (PCR) (Negative) 08/28/21 08/28/21 08/28/21 Range/Units 20:54 20:54 20:54 WBC (4.5-11.0) X10^3/uL RBC (4.0-5.2) X10^6/uL Hgb (12.0-16.0) g/dL Hct (36-46) % MCV (80-100) fL MCH (26-34) PG MCHC (30-36) % RDW (11.6-14.8) % Plt Count (150-400) X10^3/uL Neut % (Auto) (50-75) % Lymph % (Auto) (25-40) % Morgan % (Auto) (3-14) % Eos % (Auto) (2-4) % Baso % (Auto) (0-2) % Neut # (Auto) (5514-2831) /uL Lymph # (Auto) (4952-5255) /uL Morgan # (Auto) (0-900) /uL Eos # (Auto) (0-450) /uL Baso # (Auto) (0-100) /uL PT 18.9 H (10.1-12.7) SECONDS INR 1.7 H (0.9-1.3) APTT 43 H (26.4-36.2) SECONDS D-Dimer < 200 (<230) ng/mL ABG pH (7.35-7.45) ABG pCO2 (35-45) mmHg ABG pO2 (80-100) mmHg ABG HCO3 (22-26) mmol/L ABG Total CO2 (21-31) mmol/L ABG O2 Saturation (95-100) % ABG Base Excess (-2-2) mmol/L FiO2 Sodium (137-145) mmol/L Potassium (3.4-5.1) mmol/L Chloride (98-107) mmol/L Carbon Dioxide (22-32) mmol/L BUN (7-17) mg/dL Creatinine (0.52-1.04) mg/dL Estimated GFR (>60) mL/min BUN/Creatinine Ratio (6-22) Glucose (80-110) mg/dL Lactate 1.9 (0.7-2.1) mmol/L Calcium (8.4-10.2) mg/dL Magnesium (1.6-2.3) mg/dL Total Bilirubin (0.2-1.3) mg/dL AST (14-36) IU/L ALT (<35) IU/L Alkaline Phosphatase (38-126) U/L Total Creatine Kinase (30-135) U/L CK-MB (CK-2) CK-MB (CK-2) Rel Index Troponin I (0.01-0.034) ng/mL NT-Pro-B Natriuret Pep (<450) pg/mL Total Protein (6.3-8.2) g/dL Albumin (3.5-5.0) g/dL Globulin (1.7-4.1) g/dL Albumin/Globulin Ratio (1.0-2.8) Lipase (23-300) U/L Procalcitonin (<0.5) ng/mL SARS-CoV-2 (PCR) Negative (Negative) ABG Data Attestation: I personally reviewed and interpreted this ABG as follows: (VBG: PH 7.33. PCO2 64. PO2 38.) Imaging Data Chest x-ray: Radiologist's Impression: 1. No definite acute cardiopulmonary disease. ? 2. Probable mild atelectasis or scarring in the left lung base. ? ECG Data Attestation: I personally reviewed and interpreted this ECG as follows: (AFib. No acute ST T wave changes. Motion artifact.) Critical Care Time Critical Care Time Critical Care Time: Yes Total Critical Care Time: 50 Attestation: Critical care time includes initial patient assessment, and repeat assessments. Time includes review of past medical records, Radiology, EKG and lab data. The patient was informed the clinical decision making. Time included consultation with the hospitalist. Discharge Plan Departure Patient Disposition: Admitted as Observation Clinical Impression: Respiratory failure with hypoxia and hypercapnia, Diabetes, Atrial fibrillation, CHF (congestive heart failure), Acute UTI Admit Date/Time: 08/29/21 01:43 Admit Provider: Rosario David
--- NOTE | 2021-08-29 01:59 | DI.ECHO.S_ITS ---
[facility]---------+ [facility] +---------+ : : [address] : : : : [id number] : : : : Phone: [phone] Echocardiogram Report + + :Name: AUTUMN BEY Study Date: 08/29/2021 Height: 69 in : :[facility] ReadingLocation: Weight: 325 lb : : Gender: Female BSA: 2.5 m2 : :: 1940 Age: 80 yrs BP: 124/67 mmHg: :Reason For Study: HYPOXIA : :Ordering Physician: Bonnie LADDformed By: Darcy Conway : :Referring: SAHARA LADD : + + Interpretation Summary Technically difficult study due to body habitus 1) Normal left ventricular thickness, size, and systolic function (EF 55-60%). 2) Grossly, the right ventricle appears mildly to moderately dilated and has low normal function. 3) No significant valvular stenoses or regurgitation. 4) Compared to the Echo done 07/08/2019, no significant change. Procedure: A two-dimensional transthoracic echocardiogram with color flow and Doppler was performed. The study quality was technically difficult. A contrast injection of Definity was performed to improve assessment of LV function. Comparison is made with the echocardiogram of 07/08/2019. The patient was in atrial fibrillation with heart rates between 63-100 bpm during the exam. Left Ventricle: The left ventricle is normal in size and wall thickness. The ejection fraction is estimated to be 55-60%. Left ventricular systolic function is normal. There are no obvious focal wall motion abnormalities noted but poor endocardial definition reduces the sensitivity for the detection of such. Diastolic function could not be accurately assessed due to atrial fibrillation. Right Ventricle: The right ventricle is not well visualized. Gross, the right ventricle appears mildly to moderately dilated and has low normal function. Atria: The left atrium is moderately dilated. Right atrium not well visualized. There is no Doppler evidence for an interatrial shunt. Mitral Valve: The mitral valve leaflets appear mildly thickened, but open well. There is moderate mitral annular calcification. There is trace mitral regurgitation. Aortic Valve: The aortic valve is not well visualized. There is mild aortic valve sclerosis. The aortic valve is slightly calcified. There is no aortic valve stenosis. No aortic regurgitation is present. Tricuspid Valve: The tricuspid valve is not well visualized, but is grossly normal. There is a trace or physiologic amount of tricuspid regurgitation. Pulmonary artery pressures cannot be estimated because of the lack of a measurable TR jet velocity. Pulmonic Valve: The pulmonic valve is not well visualized. There is no pulmonic valvular regurgitation. Great Vessels: The aortic root is normal size. The ascending aorta is at the upper limits of normal in size. The inferior vena cava was not well visualized. Pericardium/ Pleura There is no pericardial effusion. There is no pleural effusion. MMode/2D Measurements & Calculations LVIDd: 5.1 cm LVOT diam: 2.4 cm LVIDs: 3.1 cm Ao root diam: 3.7 cm FS: 38.9 % asc Aorta Diam: 3.4 cm IVSd: 0.91 cm Ao Arch Diam (Prox Trans): 2.7 cm LVPWd: 0.88 cm LV cerrato. diameter/BSA (cm/m^2): 2.0 LV sys. diameter/BSA (cm/m^2): 1.2 LA A2 area: 33.2 cm2 TAPSE: 2.0 cm LA A4 area: 25.9 cm2 LA length (vol): 6.8 cm LA vol: 107.6 ml LA vol index: 42.4 ml/m2 Doppler Measurements & Calculations Ao V2 max: 144.6 cm/sec LVOT Max Antony: 87.3 cm/sec Ao V2 mean: 103.1 cm/sec LV V1 max P.1 mmHg Ao max P.4 mmHg LV V1 VTI: 20.6 cm Ao mean P.8 mmHg JAMSHID(I,D): 3.1 cm2 Ao V2 VTI: 31.0 cm JAMSHID(V,D): 2.8 cm2 sev ratio: 0.66 JAMSHID indexed to BSA (cm^2/m^2): 1.2 MV E max antony: 94.2 cm/sec PA V2 max: 74.7 cm/sec MV A max antony: 1.6 cm/sec PA V2 mean: 54.3 cm/sec MV E/A: 57.3 PA mean P.3 mmHg Med Peak E' Antony: 8.8 cm/sec PA pr(Accel): 27.6 mmHg E/E' med: 10.8 Lat Peak E' Antony: 8.5 cm/sec E/E' lat: 11.1 E/e' average: 11.0 MV dec time: 0.22 sec SV(LVOT): 96.0 ml Reading Physician:12:55 PM
[2021-08-29] MEDS: FUROSEMIDE 100 MG/10 ML VIAL 80 MG IV (02:48)
[2021-08-29 03:09] LABS: Appearance Urine UA CLOUDY; Bilirubin Urine UA NEGATIVE (NEGATIVE); Color Urine UA Dark Yellow; Glucose Urine UA TRACE g/dL (Negative); Ketones Urine UA NEGATIVE (NEGATIVE); Leukocyte Esterase Urine UA 2+ (NEGATIVE); Nitrite Urine UA POSITIVE (Negative); Occult Blood Urine UA 3+ (Negative); Protein Urine UA 1+ (Negative); Specific Gravity Urine UA 1.025 (1.000-1.035); Urobilinogen Urine UA 0.2 E.U./dL (0.2)
[2021-08-29 03:10] LABS: Bacteria Urine Many (>30); Culture Indicated Urine Specimen Cultured; RBC Urine 10-30/HPF (0-5/HPF); Squamous Epithelial Cell Urine 0-1 /HPF (0-5/HPF); WBC Urine >100/HPF (0-5/HPF)
[2021-08-29 03:11] LABS: Hyaline Casts Urine 0-1/LPF
--- NOTE | 2021-08-29 03:19 | P.HP_ITS ---
History of Present Illness History of Present Illness Date Patient Seen: 08/29/21 Time Patient Seen: 02:20 Chief complaint: COPD, Decreased LOC Narrative: Elena Danielson is a 80 y.o. morbidly obese female resident of [facility] and was told by a nurse that she was not breathing and that they were calling an ambulance. She has multiple cormorbidities which include poorly controlled diabetes type 2, chronic continuous opioid dependence, history of CHF, diabetic peripheral neuropathy with chronic venous stasis ulcers, morbid obesity with a BMI of 47, depression, and apparent sleep apnea and hypercarbia. She has been informed in the past that she stops breathing at night and snores but does not use a CPAP machine. Upon presentation to the ED, she had a pCO2 of 64, pO2 of 38 and an ABG oxygen saturation of 67%. Per the ED provider's report, EMS found her to be oxygenating in the 60%, and after they administered O2 via nasal cannula, she improved to the high 80s and low 90s. Patient has a very remote history as a smoker, quit in her mid-20s. She denies fever chills, shortness of breath, chest pain, nausea vomiting, abdominal pain, dysuria, diarrhea constipation, she does have significant peripheral neuropathy in both feet. She was just discharged 5 days ago for the same condition, and a it appears that she has been brought to the emergency department and discharged on the same day by the hospitalist service prior to her coming up to the floor in a past ED encounter.. Also she has chronic depression and spends her days reading and sleeping. 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 She sees a therapist at the facility once a week. Chest x-ray done in the emergency department was negative for any acute c ardiopulmonary process though noted mild atelectasis or scarring in the left lung base. She is afebrile, blood pressure 124/67, heart rate 74, respiratory rate 20, oxygen saturation of 91% on 3 L, she weighs 147 kg with a BMI of 46.7. She has a mildly elevated WBC of 12.8, serum bicarb was 33, BUN 22, creatinine 1.15 which is higher than her baseline, EGFR is 45.5, glucose 222, lactate 1.9, liver enzymes within normal limits, troponin x1 is within normal limits, proBNP is 696, procalcitonin was 0.38, UTI is positive for urinary tract infection, and COVID-19 PCR is negative. Patient has had multiple admissions for acute respiratory failure as well as having had a CVA workup in 2019. She did have an echocardiogram at that time indicating an ejection fraction of 55-65%, atrial fibrillation, mildly impaired systolic function, moderately dilated left atrium, exam appeared to be technically difficult. Patient History Medical History (Updated 08/29/21 @ 03:36 by JUANJO Olson) Acute on chronic respiratory failure with hypoxia and hypercapnia Anemia Atherosclerotic heart disease of [place] coronary artery without angina pectoris Atrial fibrillation Chronic kidney disease, stage 3 Chronic pain syndrome Diabetes Gastroesophageal reflux disease Hereditary and idiopathic neuropathy, unspecified Hyperlipidemia Hypertension Hypertensive chronic kidney disease with stage 1 through stage 4 chronic kidney disease, or unspecified chronic kidney disease Hypothyroidism Hypoventilation associated with obesity syndrome Insomnia senior living current use of anticoagulant therapy Major depressive disorder Obesity Obstructive sleep apnea Urinary incontinence Venous insufficiency (chronic) (peripheral) Wheelchair bound Surgical History History of abdominal hysterectomy History of bilateral knee replacement History of toe surgery Family & Social History Family History Father Stroke Mother Cancer Social History: household members caregiver Safety & Behavioral: Feels Safe in Current Yes Environment Been Physically Hurt or No Threatened By a Person Tobacco & Substance use: Tobacco type cigars Smoking Status Former smoker alcohol intake never alcohol intake frequency 0-2 drinks per day Substance Use Type does not use Meds Home Medications and Allergies Home Medications Medication Instructions Recorded Confirmed Type nitroglycerin 0.4 mg sublingual 0.4 mg SUBLINGUAL PRN PRN #0 07/05/16 08/22/20 History tablet (Nitrostat) ondansetron HCl 4 mg tablet 4 mg PO Q4HP PRN #0 04/08/17 08/22/20 History nystatin 100,000 unit/gram topical 1 applic TOPICAL TID 12/04/17 08/22/20 History powder aripiprazole 5 mg tablet 2.5 mg PO DAILY 04/03/18 08/22/20 History aspirin 81 mg tablet,delayed 81 mg PO DAILY 04/03/18 08/22/20 History release (Aspir-Low) atorvastatin 40 mg tablet 40 mg PO BEDTIME 04/03/18 08/22/20 History diltiazem HCl 240 mg capsule,24 240 mg PO DAILY 04/03/18 08/22/20 History hr,extended release docusate sodium 100 mg tablet 200 mg PO BID 04/03/18 08/22/20 History mirabegron 25 mg tablet,extended 25 mg PO DAILY 04/03/18 08/22/20 History release 24 hr (Myrbetriq) potassium chloride 10 mEq 10 meq PO DAILY 04/03/18 08/22/20 History capsule,extended release acetaminophen 500 mg tablet 1,000 mg PO BID MDD 3 g 04/14/18 08/22/20 History insulin glargine 100 unit/mL 80 units SUBCUT BID 06/06/18 08/22/20 History subcutaneous solution (Lantus U-100 Insulin) insulin lispro 100 unit/mL See Rx Instructions .ROUTE .COMPLEX 06/06/18 08/22/20 History subcutaneous solution (Humalog U-100 Insulin) melatonin 3 mg tablet 3 mg PO BEDTIME PRN 06/06/18 08/22/20 History multivitamin with minerals 1 cap PO DAILY 06/06/18 08/22/20 History polyethylene glycol 3350 17 17 g PO DAILY PRN 06/06/18 08/22/20 History gram/dose oral powder sennosides 8.6 mg tablet (senna) 17.2 mg PO BID 06/06/18 08/22/20 History apixaban 5 mg tablet (Eliquis) 5 mg PO BID 07/07/19 08/22/20 History duloxetine 30 mg capsule,delayed 90 mg PO DAILY 07/07/19 08/22/20 History release furosemide 80 mg tablet 80 mg PO DAILY 07/07/19 08/22/20 History gabapentin 400 mg capsule 1,000 mg PO TID 07/07/19 08/22/20 History gabapentin 600 mg tablet 1,000 mg PO TID 07/07/19 08/22/20 History hydrocodone bitartrate 40 mg 40 mg PO QAM 07/07/19 08/22/20 History tablet,crush resist,extended rel. 24hr ([place] [facility]) levothyroxine 100 mcg tablet 100 mcg PO DAILY 07/07/19 08/22/20 History lisinopril 20 mg tablet 20 mg PO BID 07/07/19 08/22/20 History lorazepam 1 mg tablet 1 mg PO BEDTIME PRN 07/07/19 08/22/20 History nystatin 100,000 unit/gram topical 1 applic TOPICAL BID 07/07/19 08/22/20 History cream pantoprazole 40 mg tablet,delayed 40 mg PO DAILY 07/07/19 08/22/20 History release bupropion HCl 100 mg tablet,12 hr 100 mg PO BID 07/07/20 08/22/20 History sustained-release hydrocodone 5 mg-acetaminophen 325 1 tab PO QID PRN #10 tab 08/20/20 08/22/20 Rx mg tablet Allergies Allergy/AdvReac Type Severity Reaction Status Date / Time adhesive [ADHESIVE] Allergy Mild ALLERGY TO Verified 09/01/20 17:16 TAPE Review of Systems Review of Systems ROS: Yes All systems reviewed with the patient and are negative except as otherwise documented Exam Vital Signs (past 8 hours): - 08/28/21 20:50 08/28/21 20:54 08/28/21 21:00 Temperature 97.9 F Pulse Rate 73 75 76 Respiratory Rate 20 24 Blood Pressure 129/63 123/63 Pulse Oximetry 90 L 91 91 08/28/21 21:15 08/28/21 21:30 08/28/21 21:45 Temperature Pulse Rate 78 71 71 Respiratory Rate 22 16 16 Blood Pressure Pulse Oximetry 91 90 L 90 L 08/28/21 21:53 08/28/21 22:00 08/28/21 22:15 Temperature Pulse Rate 68 73 74 Respiratory Rate 16 16 15 Blood Pressure 130/80 Pulse Oximetry 89 L 90 L 91 08/28/21 22:30 08/28/21 22:45 08/28/21 23:00 Temperature Pulse Rate 69 71 72 Respiratory Rate 16 18 11 L Blood Pressure Pulse Oximetry 92 92 96 08/28/21 23:15 08/28/21 23:30 08/28/21 23:45 Temperature Pulse Rate 70 74 74 Respiratory Rate 12 11 L 11 L Blood Pressure Pulse Oximetry 96 94 94 08/28/21 23:58 08/29/21 00:00 08/29/21 00:15 Temperature Pulse Rate 72 71 73 Respiratory Rate 18 19 18 Blood Pressure 111/58 L Pulse Oximetry 95 91 91 08/29/21 00:30 08/29/21 00:38 08/29/21 00:45 Temperature Pulse Rate 71 72 76 Respiratory Rate 14 18 15 Blood Pressure 126/64 126/61 Pulse Oximetry 89 L 91 08/29/21 01:00 Temperature Pulse Rate 74 Respiratory Rate 20 Blood Pressure 124/67 Pulse Oximetry 91 Oxygen Delivery Method Nasal Cannula Oxygen Flow Rate 3 Narrative Exam Narrative: Gen: Alert, oriented, morbidly obese 80 y.o. female, extremely lethargic but will arouse to voice HEENT: normocephalic, atraumatic, conjunctiva clear, sclera non-icteric, oral mucosa pink and moist Neck: supple, full ROM, no JVD, trachea is midline Resp: Lungs CTA, non-labored breathing CV: RRR, no murmur or rubs Abd: soft, non-tender, normoactive BTs Skin: no lesions or rashes, dry and intact Neuro: Alert and oriented X 4 w/no focal deficits. Speech clear and coherent. Extremities: She has a 4 cm divot medial area of her left lower extremity in the vicinity of her knee appears to be an old scar, +3 nonpitting edema in both her upper and lower extremities negative Gustavo?s sign Psyche: Depressed affect. Objective Labs Result Diagrams: 08/28/21 20:54 08/28/21 20:54 Labs: Laboratory Results - last 24 hr 08/28/21 08/28/21 08/28/21 20:00 20:54 20:54 WBC 12.8 H RBC 4.48 Hgb 13.9 Hct 42.7 MCV 95.4 MCH 31.0 MCHC 32.5 RDW 15.0 H Plt Count 211 Neut % (Auto) 49.0 L Lymph % (Auto) 20.8 L [place] % (Auto) 29.3 H Eos % (Auto) 0.3 L Baso % (Auto) 0.6 Neut # (Auto) 6300 Lymph # (Auto) 2700 [place] # (Auto) 3700 H Eos # (Auto) 0 Baso # (Auto) 100 PT INR APTT D-Dimer ABG pH 7.35 ABG pCO2 64.4 H* ABG pO2 38 L* ABG HCO3 34 H ABG Total CO2 36 H ABG O2 Saturation 67 L* ABG Base Excess 9.0 H FiO2 36 Sodium 141 Potassium 5.0 Chloride 99 Carbon Dioxide 33 H BUN 22 H Creatinine 1.15 H Estimated GFR 45.5 L BUN/Creatinine Ratio 19.1 Glucose 222 H Lactate Calcium 8.8 Magnesium 1.6 Total Bilirubin 0.6 AST 24 ALT 21 Alkaline Phosphatase 79 Total Creatine Kinase < 20 L CK-MB (CK-2) TNP CK-MB (CK-2) Rel Index TNP Troponin I < 0.012 NT-Pro-B Natriuret Pep 696 H Total Protein 7.9 Albumin 4.2 Globulin 3.7 Albumin/Globulin Ratio 1.1 Lipase 48 Procalcitonin 0.38 Urine Color Urine Appearance Urine pH Ur Specific [place] Urine Protein Urine Glucose (UA) Urine Ketones Urine Occult Blood Urine Nitrate Urine Bilirubin Urine Urobilinogen Ur Leukocyte Esterase Urine RBC Urine WBC Ur Squamous Epith Cells Urine Bacteria Hyaline Casts Ur Culture Indicated? SARS-CoV-2 (PCR) 08/28/21 08/28/21 08/28/21 20:54 20:54 20:54 WBC RBC Hgb Hct MCV MCH MCHC RDW Plt Count Neut % (Auto) Lymph % (Auto) [place] % (Auto) Eos % (Auto) Baso % (Auto) Neut # (Auto) Lymph # (Auto) [place] # (Auto) Eos # (Auto) Baso # (Auto) PT 18.9 H INR 1.7 H APTT 43 H D-Dimer < 200 ABG pH ABG pCO2 ABG pO2 ABG HCO3 ABG Total CO2 ABG O2 Saturation ABG Base Excess FiO2 Sodium Potassium Chloride Carbon Dioxide BUN Creatinine Estimated GFR BUN/Creatinine Ratio Glucose Lactate 1.9 Calcium Magnesium Total Bilirubin AST ALT Alkaline Phosphatase Total Creatine Kinase CK-MB (CK-2) CK-MB (CK-2) Rel Index Troponin I NT-Pro-B Natriuret Pep Total Protein Albumin Globulin Albumin/Globulin Ratio Lipase Procalcitonin Urine Color Urine Appearance Urine pH Ur Specific [place] Urine Protein Urine Glucose (UA) Urine Ketones Urine Occult Blood Urine Nitrate Urine Bilirubin Urine Urobilinogen Ur Leukocyte Esterase Urine RBC Urine WBC Ur Squamous Epith Cells Urine Bacteria Hyaline Casts Ur Culture Indicated? SARS-CoV-2 (PCR) Negative 08/29/21 03:00 WBC RBC Hgb Hct MCV MCH MCHC RDW Plt Count Neut % (Auto) Lymph % (Auto) [place] % (Auto) Eos % (Auto) Baso % (Auto) Neut # (Auto) Lymph # (Auto) [place] # (Auto) Eos # (Auto) Baso # (Auto) PT INR APTT D-Dimer ABG pH ABG pCO2 ABG pO2 ABG HCO3 ABG Total CO2 ABG O2 Saturation ABG Base Excess FiO2 Sodium Potassium Chloride Carbon Dioxide BUN Creatinine Estimated GFR BUN/Creatinine Ratio Glucose Lactate Calcium Magnesium Total Bilirubin AST ALT Alkaline Phosphatase Total Creatine Kinase CK-MB (CK-2) CK-MB (CK-2) Rel Index Troponin I NT-Pro-B Natriuret Pep Total Protein Albumin Globulin Albumin/Globulin Ratio Lipase Procalcitonin Urine Color Dark yellow Urine Appearance Cloudy Urine pH 5.0 Ur Specific [place] 1.025 Urine Protein 1+ H Urine Glucose (UA) Trace H Urine Ketones Negative Urine Occult Blood 3+ H Urine Nitrate Positive H Urine Bilirubin Negative Urine Urobilinogen 0.2 Ur Leukocyte Esterase 2+ H Urine RBC 10-30/hpf H Urine WBC >100/hpf H Ur Squamous Epith Cells 0-1 /hpf Urine Bacteria Many (>30) H Hyaline Casts 0-1/lpf Ur Culture Indicated? Specimen cultured SARS-CoV-2 (PCR) Assessment & Plan Assessment & Plan narrative: Elena Danielson will be admitted for further management and treatment for acute respiratory failure with hypercarbia and hypoxia and a newly found urinary tract infection. 1. Acute respiratory failure with hypercarbia and hypoxia, present on admission * I have requested respiratory therapy to get her set up with a CPAP * Goal oxygenation to between 87 and 93% to prevent hypercarbia * She may need to be discharged with orders for a CPAP machine as this appears to be a recurrent problem * This may also likely be due to her high opioid medication load 2. Urinary tract infection, acute, present on admission * UA culture is pending it was positive for bacteria and nitrates * She started tonight on IV ceftriaxone 2 g and then 1 g daily in 24 hours 3. Mild CHF exacerbation unknown if acute * Patient is due for a limited echocardiogram * Patient was administered 80 mg of IV Lasix in the ED * Her proBNP was 690 * Will leave discretion for additional Lasix dosing to the day team 4. Diabetes type 2 poorly controlled * Patient is administered Lantus 76 units in the morning and 100 units at bedtime * I have entered in her custom correctional scale and she might benefit from prandial dosing * A1c was 9.9 5. Atrial fibrillation rate and rhythm controlled and anticoagulated * Continue home dose of apixaban 5 mg b.i.d., diltiazem extended release 240 mg 6. Essential hypertension, appears to be well controlled * Continue home dose of lisinopril 20 mg p.o. daily 7. Hyperlipidemia, chronic * Continue home dose of atorvastatin 40 mg p.o. at bedtime 8. Moderate depression * Continue home dose of aripiprazole 2.5 mg q.a.m. * Continue bupropion 100 mg twice daily * Continue home dose of duloxetine 90 mg p.o. daily 9. Hypothyroidism, chronic * Continue home dose of levothyroxine 100 mcg daily 10. Lower extremity polyneuropathy * Continue home dose of gabapentin 600 mg p.o. t.i.d. 11. Continuous opioid dependence * Patient takes morphine, tramadol, extended release hydrocodone, for peripheral neuropathy * I will initially hold morphine, hydrocodone * She may have tramadol 50 mg p.o. q.8 hours as needed for pain 12. Insomnia, chronic * Patient is normally given lorazepam 1 mg at bedtime, recommend switching her over to melatonin VTE Prophylaxis: Wells risk score 3 Patient is currently anticoagulated on Apixaban. Patient is admitted to the inpatient service due to the severity of disease, risks of further disease progression and this stay is expected to exceed 2 midnights. FEN: IV fluids: saline lock, diet: carb controlled, labs: CBC, C/BMP, liver enzymes, Mag, PT/INR Consultants None Dispo: discharge back to [place] Code status: DNR/DNI per patient's POLST. [X] I have utilized all available immediate resources to obtain, update, or review of the patient's current medications COVID-19 COVID-19 status: Negative Result date/Date tested (Pos, Neg/Pending): 08/29/21 Scores Wells' Criteria for PE Clinical signs and symptoms of DVT: No PE is #1 Dx or equally likely: No Heart rate > 100: No Immobilization at least 3 days or surg in previous 4 weeks: Yes History of PE or DVT: Yes Hemoptysis: No Malignancy w/Treatment within 6 months or palliative: No Wells' PE Score total: 3.0 Quality VTE Deep Vein Thrombosis/Pulmonary Embolism Present on Admission: No MIPS - Admit I confirm the patient?s Advance Care Plan is present, Code status is documented, Surrogate decision maker is in patient?s record [If Yes, STOP here]: Yes MIPS - DC The patient has current or prior documentation of left ventricular ejection fraction (LVEF) less than 40%, or moderate or severely depressed left ventricular systolic function.: No
[2021-08-29 04:29] LABS: Add Manual Diff / Slide Review NO; Basophils Absolute Auto 0 /uL (0-100); Basophils Percent Auto 0.5 % (0-2); Eosinophils Absolute Auto 0 /uL (0-450); Eosinophils Percent Auto 0.1 % (2-4); Hematocrit 42.9 % (36-46); Lymphocytes Absolute Auto 1000 /uL (1100-4500); Lymphocytes Percent Auto 10.9 % (25-40); Mean Corpuscular HGB Conc 32.6 % (30-36); Mean Corpuscular Hemoglobin 31.1 PG (26-34); Mean Corpuscular Volume 95.4 fL (80-100); Monocytes Absolute Auto 700 /uL (0-900); Monocytes Percent Auto 7.6 % (3-14); Neutrophils Absolute Auto 7300 /uL (1500-7000); Neutrophils Percent Auto 80.9 % (50-75); Platelet Count 172 X10^3/uL (150-400); Red Blood Cell Count 4.49 X10^6/uL (4.0-5.2); Red Cell Distribution Width 14.5 % (11.6-14.8)
[2021-08-29 04:44] LABS: Alanine Aminotransferase 21 IU/L (<35); Albumin 4.3 g/dL (3.5-5.0); Albumin Globulin Ratio 1.3 (1.0-2.8); Alkaline Phosphatase 85 U/L (38-126); Aspartate Aminotransferase 21 IU/L (14-36); BUN Creatinine Ratio 21.7 (6-22); Bilirubin Total 0.5 mg/dL (0.2-1.3); Bilirubin Unconjugated 0.4 mg/dL (0.0-1.1); Blood Urea Nitrogen 25 mg/dL (7-17); Calcium 8.9 mg/dL (8.4-10.2); Carbon Dioxide 29 mmol/L (22-32); Chloride 99 mmol/L (98-107); Estimated Glomerular Filt Rate 45.5 mL/min (>60); Globulin 3.2 g/dL (1.7-4.1); Glucose 319 mg/dL (80-110); HEMOLYSIS < 15 (0-50); Magnesium 1.5 mg/dL (1.6-2.3); Potassium 5.1 mmol/L (3.4-5.1); Sodium 140 mmol/L (137-145); Total Protein 7.5 g/dL (6.3-8.2)
[2021-08-29] MEDS: cefTRIAXone 2,000 MG in SODIUM CHLORIDE 0.9% 100 ML 200 ML IV (05:06)
[2021-08-29] MEDS: LEVOTHYROXINE 100 MCG TABLET PO (05:13)
--- NOTE | 2021-08-29 05:42 | RT ---
placed pt on cpap per respiratory care protocol . with 1 lpm bleed in oxygen
[2021-08-29] MEDS: INSULIN GLARGINE 100 UNIT/ML 3ML PEN 76 UNIT SUBCUT (09:40)
[2021-08-29] MEDS: INSULIN LISPRO 100 UNIT/ML 3ML VIAL SUBCUT ×4 (09:41→21:49)
[2021-08-29] MEDS: APIXABAN 5 MG TABLET PO ×2 (09:45→21:34)
[2021-08-29] MEDS: DOCUSATE 100 MG CAPSULE PO ×2 (09:46→21:34)
[2021-08-29] MEDS: MAGNESIUM CHLORIDE 64 MG TABLET 128 MG PO (09:46)
[2021-08-29] MEDS: SENNOSIDES 8.6 MG TABLET PO ×2 (09:46→21:34)
[2021-08-29] MEDS: DULOXETINE 30 MG CAPSULE 90 MG PO (09:46)
[2021-08-29] MEDS: NYSTATIN CREAM 30 GM 1 APPLIC TOP ×2 (09:46→21:50)
[2021-08-29] MEDS: buPROPion SR 100 MG TAB PO ×2 (09:46→21:34)
[2021-08-29] MEDS: ASPIRIN EC 81 MG TABLET PO (09:46)
[2021-08-29] MEDS: GABAPENTIN 600 MG TABLET PO ×3 (09:47→21:34)
[2021-08-29] MEDS: lisinopriL 20 MG TABLET PO ×2 (09:54→21:34)
[2021-08-29] MEDS: ARIPiprazole 2 MG TABLET PO (09:54)
[2021-08-29] MEDS: dilTIAZem CD 240 MG CAP PO (09:54)
[2021-08-29] MEDS: PANTOPRAZOLE DR 40 MG TABLET PO (09:58)
[2021-08-29] MEDS: ATORVASTATIN 20 MG TABLET 40 MG PO (21:34)
[2021-08-29] MEDS: TRAZODONE 50 MG TABLET PO (21:34)
[2021-08-29] MEDS: INSULIN GLARGINE 100 UNIT/ML 3ML PEN SUBCUT (21:47)
--- NOTE | 2021-08-29 23:16 | RT ---
pt on cpap for noc support at this time . vauto 4-20 with 1 lpm bleed in oxygen spo2 91% RT to follow
[2021-08-30] VITALS: BP 112/71; PULSE 74; RESP 18; TEMP 36.6; O2SAT 91
[2021-08-30] MEDS: cefTRIAXone 1,000 MG in SODIUM CHLORIDE 0.9% 100 ML 200 ML IV (03:38)
[2021-08-30 04:30] VITALS: BP 120/83; PULSE 68; RESP 18; TEMP 36.6; O2SAT 94
[2021-08-30 05:06] LABS: Hematocrit 40.1 % (36-46); Mean Corpuscular HGB Conc 32.5 % (30-36); Mean Corpuscular Hemoglobin 30.7 PG (26-34); Mean Corpuscular Volume 94.4 fL (80-100); Platelet Count 182 X10^3/uL (150-400); Red Blood Cell Count 4.25 X10^6/uL (4.0-5.2); Red Cell Distribution Width 14.4 % (11.6-14.8); White Blood Cell Count 14.5 X10^3/uL (4.5-11.0)
[2021-08-30 05:07] LABS: Add Manual Diff / Slide Review NO; Basophils Absolute Auto 0 /uL (0-100); Basophils Percent Auto 0.2 % (0-2); Eosinophils Absolute Auto 0 /uL (0-450); Lymphocytes Absolute Auto 2200 /uL (1100-4500); Lymphocytes Percent Auto 14.9 % (25-40); Monocytes Absolute Auto 3900 /uL (0-900); Monocytes Percent Auto 26.7 % (3-14); Neutrophils Absolute Auto 8400 /uL (1500-7000); Neutrophils Percent Auto 58.2 % (50-75)
[2021-08-30 05:22] LABS: BUN Creatinine Ratio 34.4 (6-22); Blood Urea Nitrogen 33 mg/dL (7-17); Calcium 8.8 mg/dL (8.4-10.2); Carbon Dioxide 32 mmol/L (22-32); Chloride 96 mmol/L (98-107); Estimated Glomerular Filt Rate 56.1 mL/min (>60); Glucose 220 mg/dL (80-110); HEMOLYSIS < 15 (0-50); Potassium 4.2 mmol/L (3.4-5.1); Sodium 138 mmol/L (137-145)
[2021-08-30 08:10] VITALS: BP 127/75; PULSE 62; RESP 16; TEMP 36.1; O2SAT 96
[2021-08-30] MEDS: DOCUSATE 100 MG CAPSULE PO (09:32)
[2021-08-30] MEDS: ARIPiprazole 2 MG TABLET PO (09:33)
[2021-08-30] MEDS: buPROPion SR 100 MG TAB PO (09:33)
[2021-08-30] MEDS: DULOXETINE 30 MG CAPSULE 90 MG PO (09:33)
[2021-08-30] MEDS: GABAPENTIN 600 MG TABLET PO (09:33)
[2021-08-30] MEDS: SENNOSIDES 8.6 MG TABLET PO (09:33)
[2021-08-30] MEDS: APIXABAN 5 MG TABLET PO (09:33)
[2021-08-30] MEDS: ASPIRIN EC 81 MG TABLET PO (09:33)
[2021-08-30] MEDS: dilTIAZem CD 240 MG CAP PO (09:33)
[2021-08-30] MEDS: lisinopriL 20 MG TABLET PO (09:33)
[2021-08-30] MEDS: PANTOPRAZOLE DR 40 MG TABLET PO (09:36)
[2021-08-30] MEDS: LEVOTHYROXINE 100 MCG TABLET PO (09:36)
[2021-08-30] MEDS: INSULIN GLARGINE 100 UNIT/ML 3ML PEN 76 UNIT SUBCUT (09:37)
[2021-08-30] MEDS: NYSTATIN CREAM 30 GM 1 APPLIC TOP (09:37)
[2021-08-30] MEDS: INSULIN LISPRO 100 UNIT/ML 3ML VIAL SUBCUT ×2 (09:37→12:28)
--- NOTE | 2021-08-30 09:52 | CM.DPNOTE ---
Called [facility] per Helga for BLS transport. Spoke to Bee to take pt. to [place] at 1330. Bee confirmed time was okay. Luh [place] CM Assist.
[2021-08-30 12:15] VITALS: BP 153/95; PULSE 67; RESP 16; TEMP 36.4; O2SAT 92
--- NOTE | 2021-08-30 13:31 | CM.DPNOTE ---
DC Note DC order placed; patient returning to [facility] today Spoke w/RN Ramiro Rios completed bedside assessment this morning and agreeable to accepting back to [facility] this afternoon, requests BLS transport approx [id number] ARMANDO Arvizu, laxmi arranged BLS transport, BLS form completed, signed and placed on patient's chart Patient aware and agreeable to plan Plan: Return to [facility] today via BLS; close outpatient f/u recommended, sleep study for nightly CPAP JW
--- NOTE | 2021-08-30 13:45 | PC.NURSE ---
Day shift: Pt leaving unit via [facility] and going back to [facility]. Bed bath given by MAC Kay just prior to d/c. Pt also dressed in her own clothes. Amrita lift to [facility] transport. [facility] has her d/c paperwork. Report was given in person to Blanca (from [facility]) this AM by this policy writer. Left unit at approx 1400.
--- NOTE | 2021-08-30 14:04 | PC.NURSE ---
Day shift: Pt encouraged to follow-up r/t CPAP use.
--- NOTE | 2021-08-30 20:44 | PM.DS.1 ---
History of Present Illness History of Present Illness Chief complaint: COPD, Decreased LOC Narrative: Per admitting provider: Elena Danielson is a 80 y.o. morbidly obese female resident of [facility] and was told by a nurse that she was not breathing and that they were calling an ambulance.? She has multiple cormorbidities which include poorly controlled diabetes type 2, chronic continuous opioid dependence, history of CHF, diabetic peripheral neuropathy with chronic venous stasis ulcers, morbid obesity with a BMI of 47, depression, and apparent sleep apnea and hypercarbia.? She has been informed in the past that she stops breathing at night and snores but does not use a CPAP machine.? Upon presentation to the ED, she had a pCO2 of 64, pO2 of 38 and an ABG oxygen saturation of 67%.? Per the ED provider's report, EMS found her to be oxygenating in the 60%, and after they administered O2 via nasal cannula, she improved to the high 80s and low 90s.? Patient has a very remote history as a smoker, quit in her mid-20s.? She denies fever chills, shortness of breath, chest pain, nausea vomiting, abdominal pain, dysuria, diarrhea constipation, she does have significant peripheral neuropathy in both feet.? She was just discharged 5 days ago for the same condition, and a it appears that she has been brought to the emergency department and discharged on the same day by the hospitalist service prior to her coming up to the floor in a past ED encounter..? Also she has chronic depression and spends her days reading and sleeping.? 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 She sees a therapist at the facility once a week. Chest x-ray done in the emergency department was negative for any acute cardiopulmonary process though noted mild atelectasis or scarring in the left lung base.? She is afebrile, blood pressure 124/67, heart rate 74, respiratory rate 20, oxygen saturation of 91% on 3 L, she weighs 147 kg with a BMI of 46.7.? She has a mildly elevated WBC of 12.8, serum bicarb was 33, BUN 22, creatinine 1.15 which is higher than her baseline, EGFR is 45.5, glucose 222, lactate 1.9, liver enzymes within normal limits, troponin x1 is within normal limits, proBNP is 696, procalcitonin was 0.38, UTI is positive for urinary tract infection, and COVID-19 PCR is negative. Patient has had multiple admissions for acute respiratory failure as well as having had a CVA workup in 2019.? She did have an echocardiogram at that time indicating an ejection fraction of 55-65%, atrial fibrillation, mildly impaired systolic function, moderately dilated left atrium, exam appeared to be technically difficult. Discharge Providers Provider Date of admission: 08/29/21 01:43 Discharge Date: 08/30/21 Primary care physician: JUAJNO Brito Consults: 08/28/21 22:32 Consult to Respiratory Therapy Evaluate & Treat Comment: Physician Instructions: Evaluate and treat 08/29/21 01:45 Consult to Respiratory Therapy Evaluate & Treat Comment: CPAP for sleep apnea Physician Instructions: Evaluate and treat 08/29/21 02:04 Consult to Respiratory Therapy Evaluate & Treat Comment: for Cpap Physician Instructions: Evaluate and treat Discharge provider: Terry Headley MD Summary Hospital Course Discharge Diagnosis: 1. Acute on chronic hypoxic and hypercarbic respiratory failure 2. UTI 3. Chronic CHF, without acute exacerbation 4. Type Diabetes on insulin 5. Chronic atrial fibrillation 6. HTN 7. HL 8. Depression 9. Hypothyroid 10. Neuropathy 11. Opioid dependence 12. Insomnia 13. Acute metabolic encephalopathy Hospital Course: Ms. Danielson was admitted with hypoxemia. She quickly improved on CPAP and was back to her baseline. She had no shortness of breath or cough. She was initially confused but quickly improved. She likely has sleep apnea and obesity hypoventilation and should be setup for CPAP as quickly as possible to prevent further repeat events. In addition, opiates and other sedating medications should be limited as much as possible as they likely play a large role in her presentation to the hospital. She did have a UTI and was discharged home with antibiotics. Exam Vital Signs (past 8 hours): Fraction of Inspired Oxygen 24 Oxygen Delivery Method Room Air Oxygen Flow Rate 0 Narrative Exam Narrative: Gen: Alert, oriented, morbidly obese Resp: Lungs clear bilaterally CV: RRR Abd: soft, non-tender Neuro: Alert and oriented no focal deficit Objective Labs Result Diagrams: 08/30/21 04:25 08/30/21 04:25 Labs: Laboratory Results - last 24 hr 08/30/21 08/30/21 04:25 04:25 WBC 14.5 H D RBC 4.25 Hgb 13.0 Hct 40.1 MCV 94.4 MCH 30.7 MCHC 32.5 RDW 14.4 Plt Count 182 Neut % (Auto) 58.2 D Lymph % (Auto) 14.9 L [place] % (Auto) 26.7 H Eos % (Auto) 0.0 L Baso % (Auto) 0.2 Neut # (Auto) 8400 H Lymph # (Auto) 2200 [place] # (Auto) 3900 H Eos # (Auto) 0 Baso # (Auto) 0 Sodium 138 Potassium 4.2 Chloride 96 L Carbon Dioxide 32 BUN 33 H Creatinine 0.96 Estimated GFR 56.1 L BUN/Creatinine Ratio 34.4 H Glucose 220 H Calcium 8.8 PFSH Medical History Acute on chronic respiratory failure with hypoxia and hypercapnia Anemia Atherosclerotic heart disease of [place] coronary artery without angina pectoris Atrial fibrillation Chronic kidney disease, stage 3 Chronic pain syndrome Diabetes Gastroesophageal reflux disease Hereditary and idiopathic neuropathy, unspecified Hyperlipidemia Hypertension Hypertensive chronic kidney disease with stage 1 through stage 4 chronic kidney disease, or unspecified chronic kidney disease Hypothyroidism Hypoventilation associated with obesity syndrome 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 Danielson was admitted with confusion. She had a low oxygen level and she had a UTI. She should finish her antibiotics. She would likely benefit from a CPAP machine, if she has one she can be encouraged to use it. She should otherwise follow up as soon as possible with a sleep study. Discharge orders & Medications Discharge Orders: Discharge (Order); Ordered 08/30/21 Ordered By: Terry Headley Prescriptions: New levofloxacin 500 mg tablet 500 mg PO DAILY Qty: 3 0RF Continued nitroglycerin [Nitrostat] 0.4 MG tablet, sublingual 0.4 mg Sublingual PRN PRN (Reason: Chest Pain) Qty: 0 0RF ondansetron HCl 4 MG tablet 4 mg PO Q4HP PRN (Reason: Nausea) Qty: 0 0RF atorvastatin 40 mg Tablet 40 mg PO BEDTIME 0RF potassium chloride 10 mEq Capsule, Extended Release 10 meq PO DAILY 0RF diltiazem HCl 240 mg Capsule,Extended Release 24 Hr 240 mg PO DAILY 0RF Rx Instructions: hold if SBP<110 or HR<60 call aspirin [Aspir-Low] 81 mg Tablet,Delayed Release (Dr/Ec) 81 mg PO DAILY 0RF docusate sodium 100 mg Tablet 200 mg PO BID 0RF aripiprazole 5 mg Tablet 2.5 mg PO DAILY 0RF bupropion HCl 100 mg tablet sustained-release 12 hr 100 mg PO BID 0RF gabapentin 600 mg tablet 600 mg PO TID 0RF lisinopril 20 mg tablet 20 mg PO BID 0RF levothyroxine 100 mcg tablet 100 mcg PO DAILY 0RF furosemide 80 mg tablet 40 mg PO DAILY 0RF pantoprazole 40 mg tablet,delayed release (DR/EC) 40 mg PO DAILY 0RF nystatin 100,000 unit/gram cream 1 applic TOPICAL BID 0RF Rx Instructions: to inner groin for yeast. wash area with mild soap and water, pat dry, then apply cream. DC this order when area is resolved duloxetine 30 mg Capsule,Delayed Release(Dr/Ec) 90 mg PO DAILY 0RF Eliquis 5 mg tablet 5 mg PO BID 0RF hydrocodone bitartrate [Hysingla ER] 40 mg tablet,oral only,ext.rel.24 hr 40 mg PO QAM 0RF acetaminophen 500 mg Tablet 1,000 mg PO BID MDD 3 g PRN (Reason: Pain (Scale Score 4-6)) 0RF polyethylene glycol 3350 17 gram/dose Powder 17 g PO DAILY PRN (Reason: Constipation) 0RF sennosides [senna] 8.6 mg Tablet 17.2 mg PO BID 0RF Label Comments: hold for loose stool Lantus U-100 Insulin 100 unit/mL Solution 76 units subcut DAILY 0RF insulin lispro [Humalog U-100 Insulin] 100 unit/mL Solution See Rx Instructions .ROUTE .COMPLEX 0RF Rx Instructions: 1 dose subcutaneously sliding scale 151-250=10 units, 251-350=15u, 351-450=20 u ac and bedtime >451 call MD Aleks Paulino U-100 Insulin 100 unit/mL (3 mL) Insulin Pen 46 unit SUBCUT BEDTIME 0RF tramadol 50 mg Tablet 50 mg PO Q8H PRN (Reason: Moderate Pain (Scale Score 5-6)) 0RF morphine 15 mg Tablet 15 mg PO BID PRN (Reason: Moderate Pain (Scale Score 5-6)) 0RF Discontinued lorazepam 1 mg tablet 1 mg PO BEDTIME PRN (Reason: Anxiety) 0RF Rx Instructions: only allowed during hours of sleep trazodone 50 mg Tablet 50 mg PO BEDTIME PRN (Reason: Sleep) 0RF tramadol 50 mg Tablet 100 mg PO Q8H PRN (Reason: Moderate Pain (Scale Score 5-6)) 0RF Follow up/Referrals: Fernanda Knox ARNP [Primary Care Provider] - Discharge Health Status Multidrug resistant organism: No MDRO Diet/Activity/Treatments Diet: Carb-consistent/Diabetic Liquid consistency: Normal/Thin Food texture: Regular [facility] Rehab type: Physical therapy and Occupational therapy Visit Report/Discharge Packet Instructions: Sleep Apnea, DI for Urinary Tract Infection (UTI) Discharge Data Primary Care Provider: Fernanda Knox Quality VTE Deep Vein Thrombosis/Pulmonary Embolism Present on Admission: No
== END 2021-08-30 14:06 | DRG 70 ==
LOC: ED 21:18 → AC 08-29 01:45
PROVIDERS: Admitting Provider Nurse Practitioner Family; Emergency Provider Emergency Medicine; PCP Nurse Practitioner Family; Visit Provider Nurse Practitioner Family
DX: G93.41 Metabolic encephalopathy (principal); J96.22 Acute and chronic respiratory failure with hypercapnia; J96.21 Acute and chronic respiratory failure with hypoxia; F11.20 Opioid dependence, uncomplicated; E66.2 Morbid (severe) obesity with alveolar hypoventilation; Z68.42 Body mass index [BMI] 45.0-49.9, adult; N39.0 Urinary tract infection, site not specified; I48.20 Chronic atrial fibrillation, unspecified; I50.32 Chronic diastolic (congestive) heart failure; I11.0 Hypertensive heart disease with heart failure; E11.65 Type 2 diabetes mellitus with hyperglycemia; E78.5 Hyperlipidemia, unspecified; F32.A Depression, unspecified; E03.9 Hypothyroidism, unspecified; E11.42 Type 2 diabetes mellitus with diabetic polyneuropathy; F51.04 Psychophysiologic insomnia; K21.9 Gastro-esophageal reflux disease without esophagitis; Z79.01 Long term (current) use of anticoagulants; Z87.891 Personal history of nicotine dependence; Z20.822 Contact with and (suspected) exposure to COVID-19; Z79.4 Long term (current) use of insulin
CPT/HCPCS: 36415; 36600; 71045; 80048; 80053; 80076; 81001; 82550; 82805; 82962; 83605; 83690; 83735; 83880; 84145; 84484; 85025; 85379; 85610; 85730; 87040; 87077; 87086; 87186; 87635; 94660; 94760; 94762; 96374; 96375; 99285; 99291; C9803; A9270; C8929; J0696; J1815; J1940; J2930; Q9957

== ENCOUNTER → 2021-08-31 15:21 | Outpatient (ROUT) | payer MEDICARE, OTHER, MEDICAID, SELFPAY ==
[2021-08-29 12:00] VITALS: BMI 49.4
[2021-08-31 15:28] LABS: Add Manual Diff / Slide Review NO; Basophils Absolute Auto 100 /uL (0-100); Basophils Percent Auto 0.6 % (0-2); Eosinophils Absolute Auto 0 /uL (0-450); Eosinophils Percent Auto 0.2 % (2-4); Hematocrit 41.1 % (36-46); Hemoglobin 13.4 g/dL (12.0-16.0); Lymphocytes Absolute Auto 1900 /uL (1100-4500); Lymphocytes Percent Auto 15.4 % (25-40); Mean Corpuscular HGB Conc 32.7 % (30-36); Mean Corpuscular Volume 94.6 fL (80-100); Monocytes Absolute Auto 3400 /uL (0-900); Monocytes Percent Auto 27.8 % (3-14); Neutrophils Absolute Auto 6900 /uL (1500-7000); Platelet Count 199 X10^3/uL (150-400); Red Blood Cell Count 4.34 X10^6/uL (4.0-5.2); Red Cell Distribution Width 14.4 % (11.6-14.8); White Blood Cell Count 12.4 X10^3/uL (4.5-11.0)
[2021-08-31 15:35] LABS: BUN Creatinine Ratio 33.3 (6-22); Blood Urea Nitrogen 27 mg/dL (7-17); Calcium 8.8 mg/dL (8.4-10.2); Carbon Dioxide 27 mmol/L (22-32); Chloride 102 mmol/L (98-107); Estimated Glomerular Filt Rate > 60.0 mL/min (>60); Glucose 217 mg/dL (80-110); HEMOLYSIS 17 (0-50); Potassium 4.4 mmol/L (3.4-5.1); Sodium 140 mmol/L (137-145)
== END ==
PROVIDERS: PCP Nurse Practitioner Family; Visit Provider Nurse Practitioner Family
DX: D72.829 Elevated white blood cell count, unspecified (principal)
CPT/HCPCS: 80048; 85025

== ENCOUNTER → 2021-09-05 07:55 | Outpatient (ROUT) | payer MEDICARE, OTHER, MEDICAID, SELFPAY ==
[2021-08-29 12:00] VITALS: BMI 49.4
[2021-09-05 08:18] LABS: Add Manual Diff / Slide Review YES; Hematocrit 44.3 % (36-46); Hemoglobin 14.1 g/dL (12.0-16.0); Mean Corpuscular HGB Conc 31.9 % (30-36); Mean Corpuscular Hemoglobin 30.6 PG (26-34); Mean Corpuscular Volume 95.9 fL (80-100); Platelet Count 205 X10^3/uL (150-400); Red Blood Cell Count 4.62 X10^6/uL (4.0-5.2); Red Cell Distribution Width 14.7 % (11.6-14.8); White Blood Cell Count 12.2 X10^3/uL (4.5-11.0)
[2021-09-05 08:44] LABS: Neutrophils Absolute Manual 6100 /uL (3000-5900); Total Cells Counted 100
[2021-09-05 08:45] LABS: RBC Morphology Normal Morphology
== END ==
PROVIDERS: PCP Nurse Practitioner Family; Visit Provider Nurse Practitioner Gerontology
DX: D72.829 Elevated white blood cell count, unspecified (principal)
CPT/HCPCS: 36415; 85007; 85025

== ENCOUNTER → 2021-09-19 08:07 | Outpatient (ROUT) | payer MEDICARE, OTHER, MEDICAID, SELFPAY ==
[2021-09-07 09:48] VITALS: BMI 49.4
[2021-09-19 08:37] LABS: Add Manual Diff / Slide Review NO; Basophils Absolute Auto 0 /uL (0-100); Basophils Percent Auto 0.3 % (0-2); Eosinophils Absolute Auto 0 /uL (0-450); Eosinophils Percent Auto 0.4 % (2-4); Hematocrit 42.8 % (36-46); Hemoglobin 13.8 g/dL (12.0-16.0); Lymphocytes Absolute Auto 2600 /uL (1100-4500); Lymphocytes Percent Auto 27.5 % (25-40); Mean Corpuscular HGB Conc 32.3 % (30-36); Mean Corpuscular Hemoglobin 30.7 PG (26-34); Mean Corpuscular Volume 95.2 fL (80-100); Monocytes Absolute Auto 2400 /uL (0-900); Neutrophils Absolute Auto 4300 /uL (1500-7000); Neutrophils Percent Auto 45.8 % (50-75); Platelet Count 197 X10^3/uL (150-400); Red Blood Cell Count 4.49 X10^6/uL (4.0-5.2); Red Cell Distribution Width 14.5 % (11.6-14.8); White Blood Cell Count 9.4 X10^3/uL (4.5-11.0)
[2021-09-19 08:54] LABS: BUN Creatinine Ratio 17.6 (6-22); Blood Urea Nitrogen 16 mg/dL (7-17); Calcium 9.3 mg/dL (8.4-10.2); Carbon Dioxide 31 mmol/L (22-32); Chloride 100 mmol/L (98-107); Estimated Glomerular Filt Rate > 60 mL/min (>60); Glucose 204 mg/dL (80-110); HEMOLYSIS < 15 (0-50); Potassium 4.1 mmol/L (3.4-5.1); Sodium 141 mmol/L (137-145)
== END ==
PROVIDERS: PCP Nurse Practitioner Family; Visit Provider Nurse Practitioner Family
DX: L72.0 Epidermal cyst (principal)
CPT/HCPCS: 36415; 80048; 85025

== ENCOUNTER 2021-10-11 10:15 | Inpatient (IN) | payer MEDICARE, OTHER, MEDICAID, SELFPAY ==
[2021-09-07 09:48] VITALS: BMI 49.4
[2021-10-11] VITALS (28 sets, daily range): BP systolic 114–182; BP diastolic 46–77; PULSE 79–122; RESP 14–32; TEMP 36.3–38.7; O2SAT 85–97; BMI 50.3
--- NOTE | 2021-10-11 10:18 | DI.CT.S_ITS ---
PROCEDURE: CT STROKE INDICATIONS: expressive aphasia, arm weakness TECHNIQUE: Noncontrast 4.5 mm thick angled axial sections acquired from the foramen magnum to the vertex, with coronal reformats. For radiation dose reduction, the following was used: automated exposure control, adjustment of mA and/or kV according to patient size. COMPARISON: [facility], CT, CT HEAD/BRAIN WO CON, 08/21/2020, 17:45. [facility], CT, CT STROKE, 07/07/2019, 10:54. FINDINGS: Image quality: Excellent. CSF spaces: Basal cisterns are patent. No extra-axial fluid collections. The ventricles are symmetric in size and shape. Brain: No intracranial bleeds or masses. There is cerebral volume loss for age, with resultant ventricular and sulcal prominence. There are periventricular and deep white matter chronic small vessel ischemic changes. There is intracranial internal carotid artery atherosclerosis. Skull and face: Calvarium and visualized facial bones appear intact, without suspicious lesions. Sinuses: Visualized sinuses and mastoids are clear. IMPRESSION: 1. No acute intracranial process. 2. Moderate atrophy and chronic microvascular ischemic changes. The above findings were discussed with Dr. Harmony Layton on 10/11/2021 at 10:48 a.m. This study fulfills neurological imaging criteria for inclusion or exclusion of acute stroke therapies based on available published neurological guidelines. Dictated by: Trinity Moncada M.D. on 10/11/2021 at 10:47 Approved by: Trinity Moncada M.D. on 10/11/2021 at 10:49
--- NOTE | 2021-10-11 10:20 | ED_ITS ---
HPI - Neuro Symptoms/Deficit General Chief Complaint: Altered Mental Status Stated Complaint: Expressive aphasia,TRACEE t-1 2200 Time Seen by Provider: 10/11/21 10:21 Source: patient Mode of arrival: EMS Limitations: no limitations History of Present Illness HPI Narrative: This is an 81-year-old female who comes from [facility], she has morbid obesity, AFib anticoagulated on Eliquis, hypertension, dyslipidemia, depression, and diabetes on Lantus as well as sliding scale, patient has a history of chronic CHF and chronic respiratory failure and was recommended to use a CPAP. She was last seen last night normal. Transferred via EMS for new expressive aphasia upper extremity weakness and mental status changes. Patient had Pap positive fast exam. Glucose was in the 100 range. Patient is alert she does appear to have expressive aphasia and when asked if she has difficulty telling me what she wants to say but knows she wants to say she says yes. She answers yes no questions fell. Patient denies pain, no headache, no vision change, no chest pain, she appears to be having some shortness of breath or difficulty breathing but denies, denies any nausea or vomiting or new GI or urinary symptoms. She does state that it seems difficult to use 1 of her arms she does not appreciate sensation changes in her arms. She states she can not feel me touching both of her legs and she indicates this is normal for her. She does not answer when asked if she is using a CPAP at her care facility. She does have difficulty answering questions but attempts to do so, she can tell me she is at the hospital. She does not give a clear answer when asked why she is here today. Patient is also noted to have redness, induration and swelling of her right cheek over the maxilla, cheek and when asked if she had any pressure to that side or been laying on that side for prolonged period in her hospital bed at home she denies. Related Data Home Medications Medication Instructions Recorded Confirmed nitroglycerin 0.4 mg sublingual 0.4 mg SUBLINGUAL PRN PRN #0 07/05/16 08/29/21 tablet (Nitrostat) ondansetron HCl 4 mg tablet 4 mg PO Q4HP PRN #0 04/08/17 08/29/21 aripiprazole 5 mg tablet 2.5 mg PO DAILY 04/03/18 08/29/21 aspirin 81 mg tablet,delayed 81 mg PO DAILY 04/03/18 08/29/21 release (Aspir-Low) atorvastatin 40 mg tablet 40 mg PO BEDTIME 04/03/18 08/29/21 diltiazem HCl 240 mg capsule,24 240 mg PO DAILY 04/03/18 08/29/21 hr,extended release docusate sodium 100 mg tablet 200 mg PO BID 04/03/18 08/29/21 potassium chloride 10 mEq 10 meq PO DAILY 04/03/18 08/29/21 capsule,extended release acetaminophen 500 mg tablet 1,000 mg PO BID PRN MDD 3 g 04/14/18 08/29/21 insulin glargine 100 unit/mL 76 units SUBCUT DAILY 06/06/18 08/29/21 subcutaneous solution (Lantus U-100 Insulin) insulin lispro 100 unit/mL See Rx Instructions .ROUTE .COMPLEX 06/06/18 08/29/21 subcutaneous solution (Humalog U-100 Insulin) polyethylene glycol 3350 17 17 g PO DAILY PRN 06/06/18 08/29/21 gram/dose oral powder sennosides 8.6 mg tablet (senna) 17.2 mg PO BID 06/06/18 08/29/21 apixaban 5 mg tablet (Eliquis) 5 mg PO BID 07/07/19 08/29/21 duloxetine 30 mg capsule,delayed 90 mg PO DAILY 07/07/19 08/29/21 release furosemide 80 mg tablet 40 mg PO DAILY 07/07/19 08/29/21 gabapentin 600 mg tablet 600 mg PO TID 07/07/19 08/29/21 hydrocodone bitartrate 40 mg 40 mg PO QAM 07/07/19 08/29/21 tablet,crush resist,extended rel. 24hr (Hys[place]la ER) levothyroxine 100 mcg tablet 100 mcg PO DAILY 07/07/19 08/29/21 lisinopril 20 mg tablet 20 mg PO BID 07/07/19 08/29/21 nystatin 100,000 unit/gram topical 1 applic TOPICAL BID 07/07/19 08/29/21 cream pantoprazole 40 mg tablet,delayed 40 mg PO DAILY 07/07/19 08/29/21 release bupropion HCl 100 mg tablet,12 hr 100 mg PO BID 07/07/20 08/29/21 sustained-release insulin glargine 100 unit/mL (3 46 unit SUBCUT BEDTIME 08/29/21 08/29/21 mL) subcutaneous pen (Lantus Solostar U-100 Insulin) morphine 15 mg immediate release 15 mg PO BID PRN 08/29/21 08/29/21 tablet tramadol 50 mg tablet 50 mg PO Q8H PRN 08/29/21 08/29/21 Previous Rx's Medication Instructions Recorded levofloxacin 500 mg tablet 500 mg PO DAILY #3 tab 08/30/21 Allergies Allergy/AdvReac Type Severity Reaction Status Date / Time adhesive [ADHESIVE] Allergy Mild ALLERGY TO Verified 09/01/20 17:16 TAPE Review of Systems Review of Systems ROS Unobtainable: All systems reviewed & are unremarkable except as noted in HPI and below Patient History Medical History Acute on chronic respiratory failure with hypoxia and hypercapnia Anemia Atherosclerotic heart disease of inupiat coronary artery without angina pectoris Atrial fibrillation Chronic kidney disease, stage 3 Chronic pain syndrome Diabetes Gastroesophageal reflux disease Hereditary and idiopathic neuropathy, unspecified Hyperlipidemia Hypertension Hypertensive chronic kidney disease with stage 1 through stage 4 chronic kidney disease, or unspecified chronic kidney disease Hypothyroidism Hypoventilation associated with obesity syndrome Insomnia [employer]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 Major depressive disorder Obesity Obstructive sleep apnea Urinary incontinence Venous insufficiency (chronic) (peripheral) Wheelchair bound Surgical History History of abdominal hysterectomy History of bilateral knee replacement History of toe surgery Family History Father Stroke Mother Cancer Social History household members: children and caregiver Smoking Status: Former smoker alcohol intake: former Smoking Status: Former smoker alcohol intake frequency: 0-2 drinks per day Substance Use Type: does not use Exam Narrative Exam Narrative: GEN: Obese female with BMI of 50 alert and oriented, patient appears to be in moderate distress. HEENT: Atraumatic, pupils are equal round reactive to light, extraocular movements are intact, nares are clear, TMs are clear with no fluid, there is no conjunctival pallor. Throat is clear without any exudates, erythema, tonsillar enlargement or uvular deviation, mild decrease of nasal labial fold on the right, patient has erythema of the right cheek and induration extending from the right maxillary bone did cheek, jaw and streaking onto the right neck. HEART: Regular rate and rhythm without murmur, clicks, rubs. Pulses are equal in upper extremities LUNGS:Lungs clear to auscultation, no wheezes, rales, crackles, chest moves symmetrically, positive for tachypnea. No accessory muscle use. ABD:bowel sounds normal, soft, non-tender, no guarding, rebound, rigidity, no masses noted, no hepatosplenomegaly :No CVA tenderness MSCL: Non-tender, patient has baseline essential tremor of her upper extremities face, patient is able to lift her left upper extremity and hold for 10 seconds she has some drift on the right, patient appears to be able to almost perform finger-nose on the left but has difficulty and is unable to bring her right arm to her chest on the right. Patient states she does not normally lift her legs and is unable to perform heel-cohn test. She does not have sensation to bilateral lower extremities with palpation. She has a large wound on her left leg which appears to be healing NEURO:CN 2-12 intact, sensation normal, reflexes 2/4 upper and lower extremities. finger nose finger test normal SKIN: See above, patient also has skin breakdown at the gluteal cleft when gapped there is a linear skin breakdown the skin, there is some slight erythema at the cleft itself but not extending into the buttocks. No other skin breakdown appreciated. Initial Vital Signs Initial Vital Signs: Vital Signs Temperature 99.5 F 10/11/21 10:15 Pulse Rate 122 H 10/11/21 10:15 Respiratory Rate 22 10/11/21 10:15 Blood Pressure 171/77 H 10/11/21 10:15 Pulse Oximetry 85 L 10/11/21 10:15 Scores GCS Martin coma scale eye opening: Spontaneous Martin coma scale verbal response: Orientated Pool coma scale motor response: Obey commands Martin coma scale total score: 15 NIH Stroke Scale Level of Conciousness: Alert, keenly responsive Ask month/age: Answers one question correctly, intubated follow commands Open/close eyes, close hand: Performs both tasks correctly Best gaze horizontal: Normal Visual sims: No visual loss Facial palsy: Minor paralysis, flattened nasolabial fold, asymmetry on smiling Left arm drift: No drift for full 10 sec Right arm drift: Drifts down, not to bed Left leg drift: No movement Right leg drift: No movement Limb ataxia: Present in two limbs Sensory on face/arms/legs: Normal, no sensory loss Best language: Mild to moderate, slurs some words Dysarthria: Normal Extinction or inattention: No abnormality Total NIH Stroke scale score: 14 Course Orders Ordered: ED Orders 10/11/21 10:18 CT Stroke Stat EKG-12 Lead Stat 10/11/21 10:23 Chest [XR chest 1V] Stat 10/11/21 10:25 Complete Blood Count AUTO DIFF Stat Partial Thromboplastin Time Stat Prothrombin Time INR Stat 10/11/21 10:34 BNP [NT-proBNP (BNP-Adult 18+)] Stat Basic Metabolic Panel Stat Troponin & CK Cardiac Panel Stat 10/11/21 10:47 CT angio head and neck Stat Lactate (Lactic Acid) Stat Procalcitonin Stat 10/11/21 10:55 COVID19 -Nasal RAPID/Pre-Proc Stat 10/11/21 11:10 ABG [Arterial Blood Gas] Stat 10/11/21 11:35 UA Complete [Urinalysis and Microscopic] Stat Urine Drug Screen, Rapid Stat 10/11/21 12:30 Blood Culture Stat Acetaminophen (Acetaminophen 325 Mg Tablet) 650 mg PO Q6HR PRN PRN Reason: Fever Apixaban (Apixaban 5 Mg Tablet) 5 mg PO BID LUPILLO Aripiprazole (Aripiprazole 10 Mg Tablet) 2.5 mg PO DAILY LUPILLO Aspirin (Aspirin Ec 81 Mg Tablet) 81 mg PO DAILY LUPILLO Atorvastatin Calcium (Atorvastatin 20 Mg Tablet) 40 mg PO BEDTIME LUPILLO Bisacodyl (Bisacodyl 10 Mg Supp) 10 mg [place] DAILY PRN PRN Reason: Constipation Bumetanide (Bumetanide 1 Mg Tablet) 1 mg PO DAILY LUPILLO Bupropion HCl (Bupropion Sr 100 Mg Tab) 100 mg PO BID LUPILLO Calcium Carbonate (Calcium Carbonate 500 Mg Tab) 1,000 mg PO Q4HR PRN PRN Reason: Dyspepsia Dextrose (Dextrose 50 % In Water 25 Gm/50 Ml Syringe) 25 gm IV PRN PRN; Protocol PRN Reason: Hypoglycemia Diltiazem HCl (Diltiazem Cd 240 Mg Cap) 240 mg PO DAILY LUPILLO Duloxetine HCl (Duloxetine 30 Mg Capsule) 90 mg PO DAILY [facility] Famotidine (Famotidine 20 Mg Tablet) 20 mg PO BID [facility] Fluconazole (Fluconazole 100 Mg Tablet) 200 mg PO DAILY [facility] Last Admin: 10/11/21 18:31 Dose: 200 mg Documented by: RAY Gabapentin (Gabapentin 600 Mg Tablet) 600 mg PO TID [facility] Heparin Sodium (Porcine) (Heparin Flush (Cl/Picc/Mid-Line) 50 Unit/5 Ml Syringe) 50 unit IV PRN PRN PRN Reason: Flush Heparin Sodium (Porcine) (Heparin Flush (Cl/Picc/Mid-Line) 50 Unit/5 Ml Syringe) 50 unit IV BID [facility] Sodium Chloride (Normal Saline 0.9%) 1,000 mls @ 150 mls/hr IV CONT [facility] Last Infusion: 10/11/21 11:54 Dose: 0 mls/hr Documented by: Infusion: 10/11/21 11:54 Dose: 1,000 mls/hr Documented by: Admin: 10/11/21 10:45 Dose: 150 mls/hr Documented by: LUBNA Cefepime HCl 1 gm/ Sodium (Chloride) 100 mls @ 200 mls/hr IV Q12H [facility] Last Admin: 10/11/21 16:42 Dose: 200 mls/hr Documented by: CTR.[email or web address] Vancomycin HCl (Vancomycin) 1,250 mg in 250 mls @ 250 mls/hr IV Q12H [facility] Insulin Glargine (Insulin Glargine 100 Unit/Ml 3ml Pen) 46 unit SUBCUT BEDTIME [facility] Insulin Glargine (Insulin Glargine 100 Unit/Ml 3ml Pen) 40 unit SUBCUT DAILY [facility] Insulin Human Lispro (Insulin Lispro 100 Unit/Ml 3ml Vial) 0 unit SUBCUT ACHS [facility]; Protocol Lactobacillus Acidophilus (Lactobacillus Acidophilus Tablet) 1 each PO TIDWM [facility] Last Admin: 10/11/21 18:31 Dose: 1 each Documented by: RAY Levothyroxine Sodium (Levothyroxine 100 Mcg Tablet) 100 mcg PO DAILY [facility] Lisinopril (Lisinopril 20 Mg Tablet) 20 mg PO BID [facility] Naloxone HCl (Naloxone 0.4 Mg/Ml Vial) 0.2 mg IV Q2MIN PRN PRN Reason: Opiate Reversal Nitroglycerin (Nitroglycerin 0.4 Mg Sl Tab) 0.4 mg SL PRN PRN PRN Reason: Chest Pain Nystatin (Nystatin Cream 30 Gm) 1 applic TOP BID [facility] Ondansetron HCl (Ondansetron 4 Mg/2 Ml Inj) 4 mg IV Q8HR PRN PRN Reason: Nausea And Vomiting Oxycodone HCl (Oxycodone Ir 5 Mg Tablet) 5 mg PO Q4HR PRN PRN Reason: Pain, Moderate (4-6) Polyethylene Glycol (Polyethylene Glycol 3350 17 Gm Powd.Pack) 17 gm PO BID [facility] Potassium Chloride (Potassium Chloride 10 Meq Tab) 10 meq PO DAILY [facility] Sennosides (Sennosides 8.6 Mg Tablet) 17.2 mg PO BEDTIME LUPILLO Tramadol HCl (Tramadol 50 Mg Tablet) 50 mg PO Q4H PRN PRN Reason: Pain, Moderate (4-6) Vancomycin HCl (Vancomycin Trough) 1 request MISC [id number] [facility] Stop: 10/13/21 13:31 Discontinued Medications Acetaminophen (Acetaminophen 325 Mg Tablet) 975 mg PO NOW ONE Stop: 10/11/21 12:14 Last Admin: 10/11/21 12:48 Dose: 975 mg Documented by: LUBNA Aspirin (Aspirin 81 Mg Chew Tab) 324 mg PO NOW ONE Stop: 10/11/21 10:56 Last Admin: 10/11/21 11:13 Dose: 324 mg Documented by: LUBNA Sodium Chloride (Normal Saline 0.9%) 1,000 mls @ 1,000 mls/hr IV BOLUS ONE Stop: 10/11/21 12:25 Last Admin: 10/11/21 12:38 Dose: Not Given Documented by: LUBNA Sodium Chloride (Normal Saline 0.9%) 2,055 mls @ 685 mls/hr 30 ml/kg infuse over 3 hr (2055 ml) IV NOW ONE Stop: 10/11/21 15:12 Last Infusion: 10/11/21 14:34 Dose: 0 mls/hr Documented by: Admin: 10/11/21 12:39 Dose: 685 mls/hr Documented by: LUBNA Piperacillin Sod/Tazobactam (Sod 4.5 gm/ Sodium Chloride) 100 mls @ 200 mls/hr IV NOW ONE Stop: 10/11/21 12:14 Last Infusion: 10/11/21 13:30 Dose: 0 mls/hr Documented by: Admin: 10/11/21 12:47 Dose: 200 mls/hr Documented by: LUBNA Vancomycin HCl/Dextrose (Vancomycin) 2,000 mg in 400 mls @ 200 mls/hr IV NOW ONE Stop: 10/11/21 15:29 Last Infusion: 10/11/21 15:13 Dose: 0 mls/hr Documented by: Admin: 10/11/21 14:02 Dose: 200 mls/hr Documented by: LUBNA Reevaluation(s) Reevaluation #1: Patient's movement of her right upper upper extremity has significantly improved. Still some mild expressive aphasia but her speech also appears improved. Patient's face does have some increasing redness and swelling in comparison to earlier in suspect possible cellulitis with a fever of 101 F here in the department. Patient denies any pain or discomfort over the cheek with palpation. Consultations Consultation #1: Dr. Crabtree, hospitalist. Asks if we can consult with neurology and find out if MRI is option. Reviewed patient. Have stroke-like symptoms some expressive aphasia. Her movement has definitely improved, aphasia does seem to be somewhat present but improving as well. Patient also appears to have cellulitis of face. Patient was started antibiotics, she had fever and white count of 27 but is alert and appropriate. I did also review her CT angio with the radiologist, Dr. Sharp based on habitus unable to clearly see external skin well but deep structures do not show abscess or signs of infection. Time: 13:07 Consultation #2: Dr. Penn. [facility], neurology recommends continue Eliquis at this time for risk vs benefit, MRI of able to complete, if unable that CT at 24-48 hours for evidence of stroke. Time: 13:27 Consultation #3: Dr. Russ Newman, reviewed neurology recommendations, patient did receive IV antibiotics, fluids. Plan for inpatient admission. Time: 13:56 Vital Signs Vital signs: Vital Signs - 8 hr 10/11/21 10:41 10/11/21 11:00 10/11/21 11:01 Temperature Pulse Rate 114 H 111 H 107 H Respiratory Rate 24 22 22 Blood Pressure 171/77 H 182/73 H Pulse Oximetry 94 93 10/11/21 11:30 10/11/21 11:34 10/11/21 11:44 Temperature 101.1 F H Pulse Rate 112 H 105 H Respiratory Rate 24 22 Blood Pressure 152/66 H Pulse Oximetry 96 95 10/11/21 12:00 10/11/21 12:01 10/11/21 12:30 Temperature 101.7 F H 101.7 F H 101.5 F H Pulse Rate 96 H 95 H 105 H Respiratory Rate Blood Pressure 162/69 H Pulse Oximetry 97 97 97 10/11/21 12:31 10/11/21 12:48 10/11/21 13:00 Temperature 101.5 F H 101.7 F H 101.3 F H Pulse Rate 94 H 87 Respiratory Rate 30 H Blood Pressure 160/67 H Pulse Oximetry 96 96 10/11/21 13:01 10/11/21 13:30 10/11/21 13:31 Temperature 101.3 F H 101.1 F H 101.1 F H Pulse Rate 92 H 87 89 Respiratory Rate 32 H 28 H 26 H Blood Pressure 146/63 H 124/56 L Pulse Oximetry 95 94 93 10/11/21 14:00 10/11/21 14:01 Temperature 100.9 F H 100.9 F H Pulse Rate 84 Respiratory Rate 25 H Blood Pressure 120/55 L Pulse Oximetry 94 MDM - Neuro Symptoms/Deficit Lab Data Result diagrams: 10/11/21 10:25 10/11/21 10:34 Labs: Lab Results 10/11/21 10/11/21 10/11/21 Range/Units 10:25 10:25 10:34 WBC 27.2 H (4.5-11.0) X10^3/uL RBC 4.76 (4.0-5.2) X10^6/uL Hgb 14.7 (12.0-16.0) g/dL Hct 44.7 (36-46) % MCV 94.1 (80-100) fL MCH 30.8 (26-34) PG MCHC 32.8 (30-36) % RDW 14.3 (11.6-14.8) % Plt Count 202 (150-400) X10^3/uL Neut % (Auto) Not Reportable Lymph % (Auto) Not Reportable [place] % (Auto) Not Reportable Eos % (Auto) Not Reportable Baso % (Auto) Not Reportable Lymph # (Auto) Not Reportable [place] # (Auto) Not Reportable Baso # (Auto) Not Reportable Total Counted 100 Seg Neutrophils % 77.0 H (38-70) % Lymphocytes % (Manual) 5.0 L (25-45) % Monocytes % (Manual) 18.0 H (2-11) % Neutrophils # (Manual) 70595 H (8076-6221) /uL RBC Morphology Not Reportable PT 16.2 H (10.1-12.7) SECONDS INR 1.4 H (0.9-1.3) APTT 42 H (26.4-36.2) SECONDS ABG pH (7.35-7.45) ABG pCO2 (35-45) mmHg ABG pO2 (80-100) mmHg ABG HCO3 (22-26) mmol/L ABG Total CO2 (21-31) mmol/L ABG O2 Saturation (95-100) % ABG Base Excess (-2-2) mmol/L FiO2 Sodium 139 (137-145) mmol/L Potassium 4.6 (3.4-5.1) mmol/L Chloride 99 (98-107) mmol/L Carbon Dioxide 33 H (22-32) mmol/L BUN 16 (7-17) mg/dL Creatinine 0.88 (0.52-1.04) mg/dL Estimated GFR > 60 (>60) mL/min BUN/Creatinine Ratio 18.2 (6-22) Glucose 168 H (80-110) mg/dL Lactate (0.7-2.1) mmol/L Calcium 9.1 (8.4-10.2) mg/dL Total Creatine Kinase 24 L (30-135) U/L CK-MB (CK-2) TNP CK-MB (CK-2) Rel Index TNP Troponin I < 0.012 (0.01-0.034) ng/mL NT-Pro-B Natriuret Pep (<450) pg/mL Procalcitonin (<0.5) ng/mL Urine Color Urine Appearance Urine pH (4.5-8.0) Ur Specific [place] (1.000-1.035) Urine Protein (Negative) Urine Glucose (UA) (Negative) g/dL Urine Ketones (NEGATIVE) Urine Occult Blood (Negative) Urine Nitrate (Negative) Urine Bilirubin (NEGATIVE) Urine Urobilinogen (0.2) E.U./dL Ur Leukocyte Esterase (NEGATIVE) Urine RBC (0-5/HPF) Urine WBC (0-5/HPF) Ur Squamous Epith Cells (0-5/HPF) Urine Bacteria (None) Ur Culture Indicated? U Opiates 300ng/mL cut (Negative) Ur Oxycodone Screen (Negative) Urine Methadone Screen (Negative) Ur Barbiturates Screen (Negative) U Tricyclic Antidepress (Negative) Ur Phencyclidine Scrn (Negative) Ur Amphetamines Screen (Negative) U Methamphetamines Scrn (Negative) Ur MDMA Scrn (Ecstasy) (Negative) U Benzodiazepines Scrn (Negative) Urine Cocaine Screen (Negative) U Marijuana (THC) Screen (Negative) SARS-CoV-2 (PCR) (Negative) 10/11/21 10/11/21 10/11/21 Range/Units 10:34 10:47 10:47 WBC (4.5-11.0) X10^3/uL RBC (4.0-5.2) X10^6/uL Hgb (12.0-16.0) g/dL Hct (36-46) % MCV (80-100) fL MCH (26-34) PG MCHC (30-36) % RDW (11.6-14.8) % Plt Count (150-400) X10^3/uL Neut % (Auto) Lymph % (Auto) [place] % (Auto) Eos % (Auto) Baso % (Auto) Lymph # (Auto) [place] # (Auto) Baso # (Auto) Total Counted Seg Neutrophils % (38-70) % Lymphocytes % (Manual) (25-45) % Monocytes % (Manual) (2-11) % Neutrophils # (Manual) (5154-6731) /uL RBC Morphology PT (10.1-12.7) SECONDS INR (0.9-1.3) APTT (26.4-36.2) SECONDS ABG pH (7.35-7.45) ABG pCO2 (35-45) mmHg ABG pO2 (80-100) mmHg ABG HCO3 (22-26) mmol/L ABG Total CO2 (21-31) mmol/L ABG O2 Saturation (95-100) % ABG Base Excess (-2-2) mmol/L FiO2 Sodium (137-145) mmol/L Potassium (3.4-5.1) mmol/L Chloride (98-107) mmol/L Carbon Dioxide (22-32) mmol/L BUN (7-17) mg/dL Creatinine (0.52-1.04) mg/dL Estimated GFR (>60) mL/min BUN/Creatinine Ratio (6-22) Glucose (80-110) mg/dL Lactate 3.1 H (0.7-2.1) mmol/L Calcium (8.4-10.2) mg/dL Total Creatine Kinase (30-135) U/L CK-MB (CK-2) CK-MB (CK-2) Rel Index Troponin I (0.01-0.034) ng/mL NT-Pro-B Natriuret Pep 544 H (<450) pg/mL Procalcitonin 0.44 (<0.5) ng/mL Urine Color Urine Appearance Urine pH (4.5-8.0) Ur Specific [place] (1.000-1.035) Urine Protein (Negative) Urine Glucose (UA) (Negative) g/dL Urine Ketones (NEGATIVE) Urine Occult Blood (Negative) Urine Nitrate (Negative) Urine Bilirubin (NEGATIVE) Urine Urobilinogen (0.2) E.U./dL Ur Leukocyte Esterase (NEGATIVE) Urine RBC (0-5/HPF) Urine WBC (0-5/HPF) Ur Squamous Epith Cells (0-5/HPF) Urine Bacteria (None) Ur Culture Indicated? U Opiates 300ng/mL cut (Negative) Ur Oxycodone Screen (Negative) Urine Methadone Screen (Negative) Ur Barbiturates Screen (Negative) U Tricyclic Antidepress (Negative) Ur Phencyclidine Scrn (Negative) Ur Amphetamines Screen (Negative) U Methamphetamines Scrn (Negative) Ur MDMA Scrn (Ecstasy) (Negative) U Benzodiazepines Scrn (Negative) Urine Cocaine Screen (Negative) U Marijuana (THC) Screen (Negative) SARS-CoV-2 (PCR) (Negative) 10/11/21 10/11/21 10/11/21 Range/Units 10:55 11:10 11:35 WBC (4.5-11.0) X10^3/uL RBC (4.0-5.2) X10^6/uL Hgb (12.0-16.0) g/dL Hct (36-46) % MCV (80-100) fL MCH (26-34) PG MCHC (30-36) % RDW (11.6-14.8) % Plt Count (150-400) X10^3/uL Neut % (Auto) Lymph % (Auto) [place] % (Auto) Eos % (Auto) Baso % (Auto) Lymph # (Auto) [place] # (Auto) Baso # (Auto) Total Counted Seg Neutrophils % (38-70) % Lymphocytes % (Manual) (25-45) % Monocytes % (Manual) (2-11) % Neutrophils # (Manual) (0291-6498) /uL RBC Morphology PT (10.1-12.7) SECONDS INR (0.9-1.3) APTT (26.4-36.2) SECONDS ABG pH 7.40 (7.35-7.45) ABG pCO2 51.0 H (35-45) mmHg ABG pO2 61 L (80-100) mmHg ABG HCO3 32 H (22-26) mmol/L ABG Total CO2 33 H (21-31) mmol/L ABG O2 Saturation 90 L (95-100) % ABG Base Excess 7.0 H (-2-2) mmol/L FiO2 24 Sodium (137-145) mmol/L Potassium (3.4-5.1) mmol/L Chloride (98-107) mmol/L Carbon Dioxide (22-32) mmol/L BUN (7-17) mg/dL Creatinine (0.52-1.04) mg/dL Estimated GFR (>60) mL/min BUN/Creatinine Ratio (6-22) Glucose (80-110) mg/dL Lactate (0.7-2.1) mmol/L Calcium (8.4-10.2) mg/dL Total Creatine Kinase (30-135) U/L CK-MB (CK-2) CK-MB (CK-2) Rel Index Troponin I (0.01-0.034) ng/mL NT-Pro-B Natriuret Pep (<450) pg/mL Procalcitonin (<0.5) ng/mL Urine Color Urine Appearance Urine pH (4.5-8.0) Ur Specific [place] (1.000-1.035) Urine Protein (Negative) Urine Glucose (UA) (Negative) g/dL Urine Ketones (NEGATIVE) Urine Occult Blood (Negative) Urine Nitrate (Negative) Urine Bilirubin (NEGATIVE) Urine Urobilinogen (0.2) E.U./dL Ur Leukocyte Esterase (NEGATIVE) Urine RBC (0-5/HPF) Urine WBC (0-5/HPF) Ur Squamous Epith Cells (0-5/HPF) Urine Bacteria (None) Ur Culture Indicated? U Opiates 300ng/mL cut Positive H (Negative) Ur Oxycodone Screen Negative (Negative) Urine Methadone Screen Negative (Negative) Ur Barbiturates Screen Negative (Negative) U Tricyclic Antidepress Negative (Negative) Ur Phencyclidine Scrn Negative (Negative) Ur Amphetamines Screen Negative (Negative) U Methamphetamines Scrn Negative (Negative) Ur MDMA Scrn (Ecstasy) Negative (Negative) U Benzodiazepines Scrn Negative (Negative) Urine Cocaine Screen Negative (Negative) U Marijuana (THC) Screen Negative (Negative) SARS-CoV-2 (PCR) Negative (Negative) 10/11/21 Range/Units 11:35 WBC (4.5-11.0) X10^3/uL RBC (4.0-5.2) X10^6/uL Hgb (12.0-16.0) g/dL Hct (36-46) % MCV (80-100) fL MCH (26-34) PG MCHC (30-36) % RDW (11.6-14.8) % Plt Count (150-400) X10^3/uL Neut % (Auto) Lymph % (Auto) [place] % (Auto) Eos % (Auto) Baso % (Auto) Lymph # (Auto) [place] # (Auto) Baso # (Auto) Total Counted Seg Neutrophils % (38-70) % Lymphocytes % (Manual) (25-45) % Monocytes % (Manual) (2-11) % Neutrophils # (Manual) (9692-7980) /uL RBC Morphology PT (10.1-12.7) SECONDS INR (0.9-1.3) APTT (26.4-36.2) SECONDS ABG pH (7.35-7.45) ABG pCO2 (35-45) mmHg ABG pO2 (80-100) mmHg ABG HCO3 (22-26) mmol/L ABG Total CO2 (21-31) mmol/L ABG O2 Saturation (95-100) % ABG Base Excess (-2-2) mmol/L FiO2 Sodium (137-145) mmol/L Potassium (3.4-5.1) mmol/L Chloride (98-107) mmol/L Carbon Dioxide (22-32) mmol/L BUN (7-17) mg/dL Creatinine (0.52-1.04) mg/dL Estimated GFR (>60) mL/min BUN/Creatinine Ratio (6-22) Glucose (80-110) mg/dL Lactate (0.7-2.1) mmol/L Calcium (8.4-10.2) mg/dL Total Creatine Kinase (30-135) U/L CK-MB (CK-2) CK-MB (CK-2) Rel Index Troponin I (0.01-0.034) ng/mL NT-Pro-B Natriuret Pep (<450) pg/mL Procalcitonin (<0.5) ng/mL Urine Color Yellow Urine Appearance Clear Urine pH 5.0 (4.5-8.0) Ur Specific [place] 1.010 (1.000-1.035) Urine Protein 1+ H (Negative) Urine Glucose (UA) Negative (Negative) g/dL Urine Ketones Negative (NEGATIVE) Urine Occult Blood 2+ H (Negative) Urine Nitrate Negative (Negative) Urine Bilirubin Negative (NEGATIVE) Urine Urobilinogen 0.2 (0.2) E.U./dL Ur Leukocyte Esterase 2+ H (NEGATIVE) Urine RBC 5-10/hpf H (0-5/HPF) Urine WBC 30-100/hpf H (0-5/HPF) Ur Squamous Epith Cells >30 /hpf H D (0-5/HPF) Urine Bacteria Moderate (10-30) H (None) Ur Culture Indicated? Cult not indicated U Opiates 300ng/mL cut (Negative) Ur Oxycodone Screen (Negative) Urine Methadone Screen (Negative) Ur Barbiturates Screen (Negative) U Tricyclic Antidepress (Negative) Ur Phencyclidine Scrn (Negative) Ur Amphetamines Screen (Negative) U Methamphetamines Scrn (Negative) Ur MDMA Scrn (Ecstasy) (Negative) U Benzodiazepines Scrn (Negative) Urine Cocaine Screen (Negative) U Marijuana (THC) Screen (Negative) SARS-CoV-2 (PCR) (Negative) Point of Care Testing Glucose POC [address] scan - head: Radiologist's Impression: [address] [address] [address] Scan Report Signed Patient: Elena Danielson MR#: [id number] : 1940 Acct:[id number] Age/Sex: 81 / F Date of Service: 10/11/21 Loc: ED Accession Number: [id number] ?? Procedure: CT Stroke Ordering Provider: Harmony Layton D.O. PROCEDURE:? CT STROKE ? INDICATIONS:? expressive aphasia, arm weakness ? TECHNIQUE:? Noncontrast 4.5 mm thick angled axial sections acquired from the foramen magnum to the vertex, with coronal reformats.? For radiation dose reduction, the following was used:? automated exposure control, adjustment of mA and/or kV according to patient size.? ? COMPARISON:? [facility], CT, CT HEAD/BRAIN WO CON, 08/21/2020, 17:45.? [facility], CT, CT STROKE, 07/07/2019, 10:54. ? FINDINGS:? Image quality:? Excellent.? ? CSF spaces:? Basal cisterns are patent.? No extra-axial fluid collections.? The ventricles are symmetric in size and shape.? ? Brain:? No intracranial bleeds or masses.? There is cerebral volume loss for age, with resultant ventricular and sulcal prominence.? There are periventricular and deep white matter chronic small vessel ischemic changes.? There is intracranial internal carotid artery atherosclerosis.? ? Skull and face:? Calvarium and visualized facial bones appear intact, without suspicious lesions.? ? Sinuses:? Visualized sinuses and mastoids are clear.? ? IMPRESSION:? ? 1. No acute intracranial process. ? 2. Moderate atrophy and chronic microvascular ischemic changes. ? The above findings were discussed with Dr. Harmony Layton on 10/11/2021 at 10:48 a.m. ? This study fulfills neurological imaging criteria for inclusion or exclusion of acute stroke therapies based on available published neurological guidelines.? ? ? Dictated by: Trinity Moncada M.D. on 10/11/2021 at 10:47 ? ? Approved by: Trinity Moncada M.D. on 10/11/2021 at 10:49?? CTA - brain/neck: Radiologist's Impression: Close Head/Neck CTA (Signed) Trinity Moncada - 10/11/[address] (Signed) Trinity Moncada - 10/11/21 Telemetry Strips 08/29/21 Chest X-Ray (Signed) AlmeidaJean Pierre - 08/28/[address] (Signed) Jean Pierre Almeida - 09/01/20 Pelvis Ultrasound (Signed) Son Headley - 08/24/20 Chest X-Ray (Signed) Octaviano Brower - 08/24/20 Telemetry Strips 08/21/20 Chest CTA (Signed) Renzo David - 08/21/20 Chest X-Ray (Signed) Renzo David - 08/21/[address] (Signed) Renzo David - 08/21/20 Knee X-Ray (Signed) Trinity Moncada - 08/20/20 Radiology - Historical 04/07/20 Radiology - Historical 04/07/20 Radiology - Historical 04/07/20 Echocardiogram Ultrasound (Signed) Chago Mason - 07/07/19 Telemetry Strips 07/07/19 Head/Neck CTA (Signed) Mike Reid - 07/07/[address] (Signed) Jay Vásquez - 07/07/19 Chest CTA (Signed) Miek Reid - 05/30/[address] (Signed) Roddy Rodriguez - 03/15/19 Pelvis Ultrasound (Signed) Renzo David - 01/13/19 Abdomen/Pelvis CT (Signed) Renzo David - 12/08/18 Chest X-Ray (Signed) Lucina Weeks - 11/26/18 Duplex Scan Lower Extremity Artery (Signed) Mike Reid - 11/12/18 Foot X-Ray (Signed) Allie Dockery - 10/17/18 Foot X-Ray (Signed) Renzo David - 08/05/18 Chest X-Ray (Signed) Renzo David - 07/15/18 Foot X-Ray (Signed) Renzo David - 06/13/18 Chest X-Ray (Signed) Trinity Moncada - 06/06/[address] [address] [address] Scan Report Signed Patient: Elena Danielson MR#: [id number] : 1940 Acct:[id number] Age/Sex: 81 / F Date of Service: 10/11/21 Loc: ED Accession Number: [id number] ?? Procedure: CT angio head and neck Ordering Provider: Harmony Layton D.O. PROCEDURE:? CT ANGIO HEAD AND NECK ? INDICATIONS:? expressive aphasia, arm weakness ? TECHNIQUE:? After the administration of intravenous contrast, 1 mm thick sections acquired from the aortic arch through the [place].? Post-contrast 4.5 mm thick sections then re-acquired from the foramen magnum to the vertex.? 3-dimensional dissgcx-ovdnhikir-ythyfihelf (MIP) and/or volume rendering reformats were acquired of the central intracranial vasculature and neck separately. For radiation dose reduction, the following was used:? automated exposure control, adjustment of mA and/or kV according to patient size.? ? COMPARISON:? [facility], CT, CT ANGIO HEAD AND NECK, 07/07/2019, 11:31. ? FINDINGS:? Image quality:? Excellent.? ? BRAIN:? The ventricular system and cortical sulci demonstrate atrophy, consistent for the patient's stated age. There are areas of hypodensity within the periventricular and subcortical white matter.? There is no acute intra-or extra axial fluid collection. No acute hemorrhage, mass lesion or midline shift. Brainstem is unremarkable. Globes are symmetrical. Sinuses are aerated. Osseous structures are intact. ? HEAD CT ANGIOGRAPHY:? Anterior circulation:? Intracranial internal carotid arteries are normal in size and flow.? The flow within the paired anterior cerebral arteries is normal and symmetric.? The flow within the middle cerebral arteries is normal and symmetric.? The anterior communicating artery is seen.? No aneurysms are seen.? ? Posterior circulation:? Visualized portions of the vertebral arteries demonstrate normal caliber, and join to form a normal appearing basilar artery.? Flow within the po sterior cerebral arteries is normal and symmetric.? No aneurysms are seen.? There is a right vertebral artery dominance. ? NECK CT ANGIOGRAPHY:? Carotid system:? The great vessels demonstrate a conventional anatomy as they arise from the aortic arch.? The origins of the common carotid arteries appear patent.? The common carotid arteries demonstrate normal caliber and courses.? The bifurcation ramirez ons are both widely patent.? The internal carotid arteries demonstrate normal calibers and courses.? ? Posterior circulation:? The origins of the vertebral arteries both appear widely patent.? The more superior extracranial portions of both vertebral arteries also demonstrate normal courses and calibers.? They join to form a normal appearing basilar artery.? ? Soft tissues:? Visualized neck soft tissues demonstrate no suspicious abnormalities.? ? Bones:? No suspicious bony lesions.? Visualized cervical spine appears normally aligned.? IMPRESSION:? ? 1. No acute intracranial process. ? 2. Moderate atrophy and chronic microvascular ischemic changes. ? 3. No areas of hemodynamically significant stenosis, vascular occlusion or aneurysmal dilation within the anterior or posterior circulation.? ? 4. No areas of hemodynamically significant stenosis, vascular occlusion or aneurysmal dilation within the neck vasculature. ? Any quantitative measurements of stenosis were performed using NASCET criteria.? ? ? Dictated by: Trinity Moncada M.D. on 10/11/2021 at 11:11 ? ? Approved by: Trinity Moncada M.D. on 10/11/2021 at 11:22?? ECG Data Attestation: I personally reviewed and interpreted this ECG as follows: Prior ECG tracings: available for review Interpretation: AFib with rapid ventricular response rate of 110, QRS of 98 QTC of 433. No acute ST elevation or depression. Nonspecific change. No acute changes appreciated from prior in 08/21/2020. MDM Narrative Medical decision making narrative: This is an 81-year-old female who presents outside the window for intervention for tPA. Patient has last known normal was 10:00 p.m. last night on October 10. Patient has expressive aphasia she appears to have some right upper extremity weakness unable to fully evaluate her lower extremities which she states she is not normal normally able to lift. Patient's initial head CT is negative, change s. Patient was given aspirin 324 mg. Her movement has certainly improved, she has been placed on oxygen, she is receiving fluids, her speech although still slightly changed appears it improved in her right upper extremity has significantly improved. Patient does have a white count of 27, elevated lactate, procalcitonin is negative, cultures were obtained but patient has right facial swelling and redness consisting with potential cellulitis, patient did develop a fever. Antibiotics were started for broad-spectrum coverage. Her mentation is appropriate she is not confused or altered and has been improving in the department. My suspicion for meningitis is quite low. She denies being on her right side or having any pressure to that area for prolonged period. Patient did have an ABG she has a history of acute on chronic hypercapnic respiratory failure, CO2 is slightly elevated at 51 but not as high as her past. She is currently on 2 L nasal cannula. Patient is limited intervention, after discussion plan for admission for possible stroke and/or facial cellulitis. No obvious changes to the vessels of the neck related to her infection. Patient's renal function, electrolytes, troponin are normal, BNP slightly elevated at 544 but seems appropriate for fluid resuscitation at this point. She was tachycardic in AFib in the 110s regularly but has improved here in the department with fluids. Patient does meet septic criteria with HR elevated at 1 20s although this was likely also related her AFib RVR and leukocytosis. Fluids were initially delayed secondary to lack of fever upon initial arrival and patient was hypoxic and evaluating for pulmonary edema prior to initiating a 30 cc/kilos bolus. Spoke with hospitalist, asked for consultation with tele stroke this was ob tained they reviewed images recommend continuing Eliquis this time, MRI of able and if unable CT 24-48 hours for any of evidence of stroke. This was relayed to hospitalist who accepts for admission. Stroke Core Measures Exclusion Criteria TPA in CVA: Symptom Onset >3 or 4.5 Hours (last known normal 2200 10/10) Discharge Plan Departure Patient Disposition: Admitted As Inpatient Clinical Impression: Cellulitis of face, Expressive aphasia Admit Date/Time: 10/11/21 14:16 Admit Provider: Joe Duke
--- NOTE | 2021-10-11 10:23 | DI.RAD.S_ITS ---
PROCEDURE: XR CHEST 1V INDICATIONS: stroke, low O2 TECHNIQUE: One view of the chest was acquired. COMPARISON: [facility], CR, XR CHEST 1V, 08/28/2021, 20:54. FINDINGS: Surgical changes and devices: None. Lungs and pleura: Pulmonary vascular congestion is seen. No definite focal infiltrate. No pleural effusions or pneumothorax. Mediastinum: Mediastinal contours appear normal. Heart size is enlarged. Bones and chest wall: No suspicious bony lesions. Overlying soft tissues appear unremarkable. IMPRESSION: Cardiomegaly and mild congestion. No definite focal infiltrate. No pleural effusion or pneumothorax. Dictated by: Gonzalo Michelle M.D. on 10/11/2021 at 11:46 Approved by: Gonzalo Michelle M.D. on 10/11/2021 at 11:47
[2021-10-11 10:43] LABS: Hematocrit 44.7 % (36-46); Hemoglobin 14.7 g/dL (12.0-16.0); Mean Corpuscular HGB Conc 32.8 % (30-36); Mean Corpuscular Hemoglobin 30.8 PG (26-34); Mean Corpuscular Volume 94.1 fL (80-100); Platelet Count 202 X10^3/uL (150-400); Red Blood Cell Count 4.76 X10^6/uL (4.0-5.2); Red Cell Distribution Width 14.3 % (11.6-14.8); White Blood Cell Count 27.2 X10^3/uL (4.5-11.0)
[2021-10-11] MEDS: SODIUM CHLORIDE 0.9% 1,000 ML 150 ML IV (10:45)
--- NOTE | 2021-10-11 10:47 | DI.CT.S_ITS ---
PROCEDURE: CT ANGIO HEAD AND NECK INDICATIONS: expressive aphasia, arm weakness TECHNIQUE: After the administration of intravenous contrast, 1 mm thick sections acquired from the aortic arch through the [place]. Post-contrast 4.5 mm thick sections then re-acquired from the foramen magnum to the vertex. 3-dimensional olhiqlc-tojdwdzve-mbgwryvgqg (MIP) and/or volume rendering reformats were acquired of the central intracranial vasculature and neck separately. For radiation dose reduction, the following was used: automated exposure control, adjustment of mA and/or kV according to patient size. COMPARISON: [facility], CT, CT ANGIO HEAD AND NECK, 07/07/2019, 11:31. FINDINGS: Image quality: Excellent. BRAIN: The ventricular system and cortical sulci demonstrate atrophy, consistent for the patient's stated age. There are areas of hypodensity within the periventricular and subcortical white matter. There is no acute intra-or extra axial fluid collection. No acute hemorrhage, mass lesion or midline shift. Brainstem is unremarkable. Globes are symmetrical. Sinuses are aerated. Osseous structures are intact. HEAD CT ANGIOGRAPHY: Anterior circulation: Intracranial internal carotid arteries are normal in size and flow. The flow within the paired anterior cerebral arteries is normal and symmetric. The flow within the middle cerebral arteries is normal and symmetric. The anterior communicating artery is seen. No aneurysms are seen. Posterior circulation: Visualized portions of the vertebral arteries demonstrate normal caliber, and join to form a normal appearing basilar artery. Flow within the posterior cerebral arteries is normal and symmetric. No aneurysms are seen. There is a right vertebral artery dominance. NECK CT ANGIOGRAPHY: Carotid system: The great vessels demonstrate a conventional anatomy as they arise from the aortic arch. The origins of the common carotid arteries appear patent. The common carotid arteries demonstrate normal caliber and courses. The bifurcation regions are both widely patent. The internal carotid arteries demonstrate normal calibers and courses. Posterior circulation: The origins of the vertebral arteries both appear widely patent. The more superior extracranial portions of both vertebral arteries also demonstrate normal courses and calibers. They join to form a normal appearing basilar artery. Soft tissues: Visualized neck soft tissues demonstrate no suspicious abnormalities. Bones: No suspicious bony lesions. Visualized cervical spine appears normally aligned. IMPRESSION: 1. No acute intracranial process. 2. Moderate atrophy and chronic microvascular ischemic changes. 3. No areas of hemodynamically significant stenosis, vascular occlusion or aneurysmal dilation within the anterior or posterior circulation. 4. No areas of hemodynamically significant stenosis, vascular occlusion or aneurysmal dilation within the neck vasculature. Any quantitative measurements of stenosis were performed using NASCET criteria. Dictated by: Trinity Moncada M.D. on 10/11/2021 at 11:11 Approved by: Trinity Moncada M.D. on 10/11/2021 at 11:22
[2021-10-11 10:48] LABS: Add Manual Diff / Slide Review YES; INR 1.4 (0.9-1.3); Prothrombin Time 16.2 SECONDS (10.1-12.7)
[2021-10-11 10:50] LABS: PTT Partial Thromboplastin Tim 42 SECONDS (26.4-36.2)
[2021-10-11 11:01] LABS: Neutrophils Absolute Manual 20944 /uL (3000-5900); Total Cells Counted 100
[2021-10-11 11:11] LABS: COVID19 -Nasal RAPID Negative (Negative)
[2021-10-11 11:12] LABS: BUN Creatinine Ratio 18.2 (6-22); Blood Urea Nitrogen 16 mg/dL (7-17); Calcium 9.1 mg/dL (8.4-10.2); Carbon Dioxide 33 mmol/L (22-32); Chloride 99 mmol/L (98-107); Creatine Kinase 24 U/L (30-135); Estimated Glomerular Filt Rate > 60 mL/min (>60); Glucose 168 mg/dL (80-110); HEMOLYSIS < 15 (0-50); Potassium 4.6 mmol/L (3.4-5.1); Sodium 139 mmol/L (137-145)
[2021-10-11 11:13] LABS: Lactate (Lactic Acid) 3.1 mmol/L (0.7-2.1)
[2021-10-11] MEDS: ASPIRIN 81 MG CHEW TAB 324 MG PO (11:13)
[2021-10-11 11:23] LABS: Troponin I < 0.012 ng/mL (0.01-0.034)
[2021-10-11 11:29] LABS: NT-proBNP (BNP-Adult 18+) 544 pg/mL (<450)
[2021-10-11 11:35] LABS: Fractionated Inspired Oxygen 24; HCO3 ABG 32 mmol/L (22-26); Oxygen Saturation ABG 90 % (95-100); PO2 ABG 61 mmHg (80-100); TCO2 ABG 33 mmol/L (21-31)
[2021-10-11 11:38] LABS: Procalcitonin 0.44 ng/mL (<0.5)
[2021-10-11 11:47] LABS: Appearance Urine UA CLEAR; Bilirubin Urine UA NEGATIVE (NEGATIVE); Color Urine UA YELLOW; Glucose Urine UA NEGATIVE (Negative); Ketones Urine UA NEGATIVE (NEGATIVE); Leukocyte Esterase Urine UA 2+ (NEGATIVE); Nitrite Urine UA NEGATIVE (Negative); Occult Blood Urine UA 2+ (Negative); Protein Urine UA 1+ (Negative); Urobilinogen Urine UA 0.2 E.U./dL (0.2)
[2021-10-11 11:53] LABS: UR Morphine/Opiate cutoff 300 Positive (Negative); Ur Creatinine Normal (Normal); Ur Specific Gravity Normal (Normal); Urine Amphetamines Negative (Negative); Urine Barbiturates Negative (Negative); Urine Benzodiazepines Negative (Negative); Urine Cocaine Negative (Negative); Urine MDMA Negative (Negative); Urine Methadone Negative (Negative); Urine Methamphetamines Negative (Negative); Urine Oxycodone Negative (Negative); Urine Phencyclidine Negative (Negative); Urine Tetrahydrocannabinol Negative (Negative); Urine Tricyclic Antidepressant Negative (Negative); Urine pH Normal (Normal)
[2021-10-11 11:58] LABS: RBC Urine 5-10/HPF (0-5/HPF); Squamous Epithelial Cell Urine >30 /HPF (0-5/HPF); WBC Urine 30-100/HPF (0-5/HPF)
[2021-10-11 11:59] LABS: Bacteria Urine Moderate (10-30); Culture Indicated Urine Cult Not Indicated
[2021-10-11] MEDS: SODIUM CHLORIDE 0.9% 2,055 ML 685 ML IV (12:39)
[2021-10-11] MEDS: PIPERACILLIN/TAZO 4.5 GM in SODIUM CHLORIDE 0.9% 100 ML IV (12:47)
[2021-10-11] MEDS: ACETAMINOPHEN 325 MG TABLET 975 MG PO (12:48)
[2021-10-11 13:02] LABS: Reflexed Lactate in 2 Hours Y
[2021-10-11] MEDS: VANCOMYCIN 2,000 MG/400 ML PIGGYBACK 200 MG IV (14:02)
--- NOTE | 2021-10-11 16:13 | PM.HP.1 ---
History of Present Illness History of Present Illness Date Patient Seen: 10/11/21 Chief complaint: Expressive aphasia,LKW t-1 2200 Narrative: THIS IS A MORBIDLY OBESE BED BOUND 81-YEAR-OLD FEMALE WITH A PAST MEDICAL HISTORY SIGNIFICANT FOR ATRIAL FIBRILLATION AND IS ON ELIQUIS FOR STROKE PREVENTION, CHF, CHRONIC RESPIRATORY FAILUREFAILURE, AND OBESITY HYPOVENTILATORY SYNDROME /[place], PATIENT WAS SEEN IN THE ER TODAY WITH REPORTED WEAKNESS AND NUMBNESS TO THE EXTREMITIES. HOWEVER PATIENT REPORTED THAT THOSE SYMPTOMS HAVE COMPLETELY RESOLVED. SHE WAS ALSO NOTED TO HAVE SOME REDNESS ON THE RIGHT SIDE OF HER FACE WELL A LEFT HIP AREA. SHE WAS NOTED WITH FEVER ABOVE 100 IN THE ER. CELLULITIS WAS SUSPECTED AND SHE WAS GIVEN ANTIBIOTICS. PATIENT IS A POOR HISTORIAN. MOSTLY HISTORY WAS TAKEN FROM THE ER REPORT WELL NURSING NOTES. PATIENT RESIDES IN [facility]. A CT SCAN IN THE ER WITH CONTRAST DID NOT SHOW ANY SIGNIFICANT STENOSIS OR LARGE ARTERY BLOCKAGES. CT OF THE BRAIN WAS NEGATIVE WELL FOR ID ANY ACUTE PROCESS. CHEST X-RAY WITH SOME MILD CONGESTION LABS WITH SIGNIFICANT BECAUSE CYTOSIS. COAGULOPATHIES APPRECIATED. HOWEVER PATIENT IS ON ELIQUIS NORMAL KIDNEY FUNCTIONS APPRECIATED. PROCALCITONIN WAS WITHIN ACCEPTABLE LEVEL. INITIAL LACTIC ACID WAS 3 BUT REPEAT 2. 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 Major depressive disorder Obesity Obstructive sleep apnea Urinary incontinence Venous insufficiency (chronic) (peripheral) Wheelchair bound Surgical History History of abdominal hysterectomy History of bilateral knee replacement History of toe surgery Family & Social History Family History Father Stroke Mother Cancer Social History: household members caregiver Safety & Behavioral: Feels Safe in Current Yes Environment Been Physically Hurt or No Threatened By a Person Tobacco & Substance use: Tobacco type cigars Smoking Status Former smoker alcohol intake former alcohol intake frequency 0-2 drinks per day Substance Use Type does not use Meds Home Medications and Allergies Home Medications Medication Instructions Recorded Confirmed Type nitroglycerin 0.4 mg sublingual 0.4 mg SUBLINGUAL PRN PRN #0 07/05/16 08/29/21 History tablet (Nitrostat) ondansetron HCl 4 mg tablet 4 mg PO Q4HP PRN #0 04/08/17 08/29/21 History aripiprazole 5 mg tablet 2.5 mg PO DAILY 04/03/18 08/29/21 History aspirin 81 mg tablet,delayed 81 mg PO DAILY 04/03/18 08/29/21 History release (Aspir-Low) atorvastatin 40 mg tablet 40 mg PO BEDTIME 04/03/18 08/29/21 History diltiazem HCl 240 mg capsule,24 240 mg PO DAILY 04/03/18 08/29/21 History hr,extended release docusate sodium 100 mg tablet 200 mg PO BID 04/03/18 08/29/21 History potassium chloride 10 mEq 10 meq PO DAILY 04/03/18 08/29/21 History capsule,extended release acetaminophen 500 mg tablet 1,000 mg PO BID PRN MDD 3 g 04/14/18 08/29/21 History insulin glargine 100 unit/mL 76 units SUBCUT DAILY 06/06/18 08/29/21 History subcutaneous solution (Lantus U-100 Insulin) insulin lispro 100 unit/mL See Rx Instructions .ROUTE .COMPLEX 06/06/18 08/29/21 History subcutaneous solution (Humalog U-100 Insulin) polyethylene glycol 3350 17 17 g PO DAILY PRN 06/06/18 08/29/21 History gram/dose oral powder sennosides 8.6 mg tablet (senna) 17.2 mg PO BID 06/06/18 08/29/21 History apixaban 5 mg tablet (Eliquis) 5 mg PO BID 07/07/19 08/29/21 History duloxetine 30 mg capsule,delayed 90 mg PO DAILY 07/07/19 08/29/21 History release furosemide 80 mg tablet 40 mg PO DAILY 07/07/19 08/29/21 History gabapentin 600 mg tablet 600 mg PO TID 07/07/19 08/29/21 History hydrocodone bitartrate 40 mg 40 mg PO QAM 07/07/19 08/29/21 History tablet,crush resist,extended rel. 24hr ([facility]) levothyroxine 100 mcg tablet 100 mcg PO DAILY 07/07/19 08/29/21 History lisinopril 20 mg tablet 20 mg PO BID 07/07/19 08/29/21 History nystatin 100,000 unit/gram topical 1 applic TOPICAL BID 07/07/19 08/29/21 History cream pantoprazole 40 mg tablet,delayed 40 mg PO DAILY 07/07/19 08/29/21 History release bupropion HCl 100 mg tablet,12 hr 100 mg PO BID 07/07/20 08/29/21 History sustained-release insulin glargine 100 unit/mL (3 46 unit SUBCUT BEDTIME 08/29/21 08/29/21 History mL) subcutaneous pen (Lantus Solostar U-100 Insulin) morphine 15 mg immediate release 15 mg PO BID PRN 08/29/21 08/29/21 History tablet tramadol 50 mg tablet 50 mg PO Q8H PRN 08/29/21 08/29/21 History levofloxacin 500 mg tablet 500 mg PO DAILY #3 tab 08/30/21 Rx Allergies Allergy/AdvReac Type Severity Reaction Status Date / Time adhesive [ADHESIVE] Allergy Mild ALLERGY TO Verified 09/01/20 17:16 TAPE Review of Systems Review of Systems Narrative: UNRELIABLE DUE TO PATIENT BEING A POOR HISTORIAN Exam Vital Signs (past 8 hours): - 10/11/21 10:15 10/11/21 10:31 10/11/21 10:41 Temperature 99.5 F Pulse Rate 122 H 116 H 114 H Respiratory Rate 22 24 Blood Pressure 171/77 H 171/77 H Pulse Oximetry 85 L 93 10/11/21 11:00 10/11/21 11:01 10/11/21 11:30 Temperature Pulse Rate 111 H 107 H 112 H Respiratory Rate 22 22 24 Blood Pressure 182/73 H Pulse Oximetry 94 93 96 10/11/21 11:34 10/11/21 11:44 10/11/21 12:00 Temperature 101.1 F H 101.7 F H Pulse Rate 105 H 96 H Respiratory Rate 22 Blood Pressure 152/66 H Pulse Oximetry 95 97 10/11/21 12:01 10/11/21 12:30 10/11/21 12:31 Temperature 101.7 F H 101.5 F H 101.5 F H Pulse Rate 95 H 105 H 94 H Respiratory Rate Blood Pressure 162/69 H 160/67 H Pulse Oximetry 97 97 96 10/11/21 12:48 10/11/21 13:00 10/11/21 13:01 Temperature 101.7 F H 101.3 F H 101.3 F H Pulse Rate 87 92 H Respiratory Rate 30 H 32 H Blood Pressure 146/63 H Pulse Oximetry 96 95 10/11/21 13:30 10/11/21 13:31 10/11/21 14:00 Temperature 101.1 F H 101.1 F H 100.9 F H Pulse Rate 87 89 84 Respiratory Rate 28 H 26 H 25 H Blood Pressure 124/56 L 120/55 L Pulse Oximetry 94 93 94 10/11/21 14:01 10/11/21 14:30 10/11/21 14:31 Temperature 100.9 F H 100.8 F H 100.8 F H Pulse Rate 82 89 Respiratory Rate 23 23 Blood Pressure 116/54 L Pulse Oximetry 95 95 10/11/21 15:00 10/11/21 15:30 Temperature 100.6 F H 100.6 F H Pulse Rate 83 82 Respiratory Rate 25 H 25 H Blood Pressure 114/55 L 118/55 L Pulse Oximetry 96 95 Oxygen Delivery Method Nasal Cannula Oxygen Flow Rate 1 Narrative Exam Narrative: NO ACUTE DISTRESS. PATIENT IS ALERT ORIENTED X2. MORBIDLY OBESE. HEAD ATRAUMATIC NORMOCEPHALIC NECK : NO LYMPHADENOPATHY. SOME REDNESS NOTED ON THE RIGHT SIDE OF THE NECK. NONTENDER TO TOUCH. NO PALPATING MASS. EYE: EOMI, PERRLA, NORMAL CONJUNCTIVA; NO JAUNDICE CHEST: REGULAR RATE. NO RUBS. PMI IS NON DISPLACED. NO MURMURS; NORMAL S1-S2 PULMONARY: DECREASED BREATH SOUND AT THE BASES. BIBASILAR CRACKLES. NO RALES. NO RHONCHI. ABDOMEN: OBESE BUT SOFT. NONTENDER. BOWEL SOUNDS ARE PRESENT IN ALL 4 QUADRANTS. NO MASS. NO GUARDING. NO REBOUND TENDERNESS EXTREMITIES: CHRONIC DEFORMITIES NOTED TO BILATERAL LOWER EXTREMITIES. EDEMA AT 2+ NONPITTING BILATERALLY ALSO APPRECIATED. PULSES ARE APPRECIATED BILATERALLY AND EQUAL NEURO: CRANIAL NERVES 2-12 GROSSLY INTACT. NO FOCAL NEUROLOGICAL DEFICIT NOTED. CHRONIC DEFORMITIES. CHRONIC WEAKNESS WITH STRENGTH BEING 4/5 ALSO AND APPRECIATED TO BILATERAL LOWER AND UPPER EXTREMITIES. MSK: NORMAL RANGE OF MOTION FOR AGE. NO JOINT EFFUSION. POOR MUSCULATURE. DEFORMITIES SKIN: FAIR SKIN TURGOR. REDNESS NOTED MULTIPLE AREA IN THE BODY. INCLUDING THE RIGHT SIDE OF THE FACE THE UPPER RIGHT PART OF THE CHEST AND THE LEFT HIP. : NORMAL EXTERNAL GENITALIA. 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 AWAIT URINE PSYCH : CALM. OPERATIVE. Objective Labs Result Diagrams: 10/11/21 10:25 10/11/21 10:34 Labs: Laboratory Results - last 24 hr 10/11/21 10/11/21 10/11/21 10:25 10:25 10:34 WBC 27.2 H RBC 4.76 Hgb 14.7 Hct 44.7 MCV 94.1 MCH 30.8 MCHC 32.8 RDW 14.3 Plt Count 202 Neut % (Auto) Not Reportable Lymph % (Auto) Not Reportable [place] % (Auto) Not Reportable Eos % (Auto) Not Reportable Baso % (Auto) Not Reportable Lymph # (Auto) Not Reportable [place] # (Auto) Not Reportable Baso # (Auto) Not Reportable Total Counted 100 Seg Neutrophils % 77.0 H Lymphocytes % (Manual) 5.0 L Monocytes % (Manual) 18.0 H Neutrophils # (Manual) 09961 H RBC Morphology Not Reportable PT 16.2 H INR 1.4 H APTT 42 H ABG pH ABG pCO2 ABG pO2 ABG HCO3 ABG Total CO2 ABG O2 Saturation ABG Base Excess FiO2 Sodium 139 Potassium 4.6 Chloride 99 Carbon Dioxide 33 H BUN 16 Creatinine 0.88 Estimated GFR > 60 BUN/Creatinine Ratio 18.2 Glucose 168 H Lactate Calcium 9.1 Total Creatine Kinase 24 L CK-MB (CK-2) TNP CK-MB (CK-2) Rel Index TNP Troponin I < 0.012 NT-Pro-B Natriuret Pep Procalcitonin Urine Color Urine Appearance Urine pH Ur Specific [place] Urine Protein Urine Glucose (UA) Urine Ketones Urine Occult Blood Urine Nitrate Urine Bilirubin Urine Urobilinogen Ur Leukocyte Esterase Urine RBC Urine WBC Ur Squamous Epith Cells Urine Bacteria Ur Culture Indicated? U Opiates 300ng/mL cut Ur Oxycodone Screen Urine Methadone Screen Ur Barbiturates Screen U Tricyclic Antidepress Ur Phencyclidine Scrn Ur Amphetamines Screen U Methamphetamines Scrn Ur MDMA Scrn (Ecstasy) U Benzodiazepines Scrn Urine Cocaine Screen U Marijuana (THC) Screen SARS-CoV-2 (PCR) 10/11/21 10/11/21 10/11/21 10:34 10:47 10:47 WBC RBC Hgb Hct MCV MCH MCHC RDW Plt Count Neut % (Auto) Lymph % (Auto) [place] % (Auto) Eos % (Auto) Baso % (Auto) Lymph # (Auto) [place] # (Auto) Baso # (Auto) Total Counted Seg Neutrophils % Lymphocytes % (Manual) Monocytes % (Manual) Neutrophils # (Manual) RBC Morphology PT INR APTT ABG pH ABG pCO2 ABG pO2 ABG HCO3 ABG Total CO2 ABG O2 Saturation ABG Base Excess FiO2 Sodium Potassium Chloride Carbon Dioxide BUN Creatinine Estimated GFR BUN/Creatinine Ratio Glucose Lactate 3.1 H Calcium Total Creatine Kinase CK-MB (CK-2) CK-MB (CK-2) Rel Index Troponin I NT-Pro-B Natriuret Pep 544 H Procalcitonin 0.44 Urine Color Urine Appearance Urine pH Ur Specific [place] Urine Protein Urine Glucose (UA) Urine Ketones Urine Occult Blood Urine Nitrate Urine Bilirubin Urine Urobilinogen Ur Leukocyte Esterase Urine RBC Urine WBC Ur Squamous Epith Cells Urine Bacteria Ur Culture Indicated? U Opiates 300ng/mL cut Ur Oxycodone Screen Urine Methadone Screen Ur Barbiturates Screen U Tricyclic Antidepress Ur Phencyclidine Scrn Ur Amphetamines Screen U Methamphetamines Scrn Ur MDMA Scrn (Ecstasy) U Benzodiazepines Scrn Urine Cocaine Screen U Marijuana (THC) Screen SARS-CoV-2 (PCR) 10/11/21 10/11/21 10/11/21 10:55 11:10 11:35 WBC RBC Hgb Hct MCV MCH MCHC RDW Plt Count Neut % (Auto) Lymph % (Auto) [place] % (Auto) Eos % (Auto) Baso % (Auto) Lymph # (Auto) [place] # (Auto) Baso # (Auto) Total Counted Seg Neutrophils % Lymphocytes % (Manual) Monocytes % (Manual) Neutrophils # (Manual) RBC Morphology PT INR APTT ABG pH 7.40 ABG pCO2 51.0 H ABG pO2 61 L ABG HCO3 32 H ABG Total CO2 33 H ABG O2 Saturation 90 L ABG Base Excess 7.0 H FiO2 24 Sodium Potassium Chloride Carbon Dioxide BUN Creatinine Estimated GFR BUN/Creatinine Ratio Glucose Lactate Calcium Total Creatine Kinase CK-MB (CK-2) CK-MB (CK-2) Rel Index Troponin I NT-Pro-B Natriuret Pep Procalcitonin Urine Color Urine Appearance Urine pH Ur Specific [place] Urine Protein Urine Glucose (UA) Urine Ketones Urine Occult Blood Urine Nitrate Urine Bilirubin Urine Urobilinogen Ur Leukocyte Esterase Urine RBC Urine WBC Ur Squamous Epith Cells Urine Bacteria Ur Culture Indicated? U Opiates 300ng/mL cut Positive H Ur Oxycodone Screen Negative Urine Methadone Screen Negative Ur Barbiturates Screen Negative U Tricyclic Antidepress Negative Ur Phencyclidine Scrn Negative Ur Amphetamines Screen Negative U Methamphetamines Scrn Negative Ur MDMA Scrn (Ecstasy) Negative U Benzodiazepines Scrn Negative Urine Cocaine Screen Negative U Marijuana (THC) Screen Negative SARS-CoV-2 (PCR) Negative 10/11/21 10/11/21 11:35 14:40 WBC RBC Hgb Hct MCV MCH MCHC RDW Plt Count Neut % (Auto) Lymph % (Auto) [place] % (Auto) Eos % (Auto) Baso % (Auto) Lymph # (Auto) [place] # (Auto) Baso # (Auto) Total Counted Seg Neutrophils % Lymphocytes % (Manual) Monocytes % (Manual) Neutrophils # (Manual) RBC Morphology PT INR APTT ABG pH ABG pCO2 ABG pO2 ABG HCO3 ABG Total CO2 ABG O2 Saturation ABG Base Excess FiO2 Sodium Potassium Chloride Carbon Dioxide BUN Creatinine Estimated GFR BUN/Creatinine Ratio Glucose Lactate 2.0 Calcium Total Creatine Kinase CK-MB (CK-2) CK-MB (CK-2) Rel Index Troponin I NT-Pro-B Natriuret Pep Procalcitonin Urine Color Yellow Urine Appearance Clear Urine pH 5.0 Ur Specific [place] 1.010 Urine Protein 1+ H Urine Glucose (UA) Negative Urine Ketones Negative Urine Occult Blood 2+ H Urine Nitrate Negative Urine Bilirubin Negative Urine Urobilinogen 0.2 Ur Leukocyte Esterase 2+ H Urine RBC 5-10/hpf H Urine WBC 30-100/hpf H Ur Squamous Epith Cells >30 /hpf H D Urine Bacteria Moderate (10-30) H Ur Culture Indicated? Cult not indicated U Opiates 300ng/mL cut Ur Oxycodone Screen Urine Methadone Screen Ur Barbiturates Screen U Tricyclic Antidepress Ur Phencyclidine Scrn Ur Amphetamines Screen U Methamphetamines Scrn Ur MDMA Scrn (Ecstasy) U Benzodiazepines Scrn Urine Cocaine Screen U Marijuana (THC) Screen SARS-CoV-2 (PCR) Assessment & Plan Assessment & Plan narrative: IMPRESSION POSSIBLE TIA. SYMPTOMS RESOLVED POSSIBLE CELLULITIS TO MIDDLE RIGHT NECK/ UPPER CHEST. POSSIBLE CELLULITIS TO LEFT LEUKOCYTOSIS. LIKELY DUE TO INFECTIOUS PROCESS FEVER. LIKELY ASSOCIATED WITH AFFECT CHEST PROCESS POSSIBLE SEPSIS. PRESENT ON ARRIVAL. SOURCE COULD BE THE URINE VERSUS CELLULITIS. BACTERIAL SPECIES UNCLEAR LACTIC ACIDOSIS. LIKELY ASSOCIATED WITH SEPSIS ACUTE PYELONEPHRITIS. LIKELY GRAM-NEGATIVE BACTERIA MORBID OBESITY. COUNSELING TO BE GIVEN ONCE APPROPRIATE ELIQUIS COAGULOPATHY. MONITOR CLOSELY ATRIAL FIBRILLATION PER HISTORY. ON TELE AT ALL TIMES DIABETES TYPE 2 PER HISTORY CHRONIC RESPIRATORY FAILURE PER HISTORY HYPERTENSION PER HISTORY HYPERLIPIDEMIA PER HISTORY BED- CONFINEMENT STATE PER HX PLAN IN REGARD TO NEUROLOGICAL SYMPTOM REPORTED BY THE ER ON ADMISSION PATIENT DENIES ANY WEAKNESS STATED THAT SHE FEELS LIKE SHE IS AT BASELINE NO NUMBNESS REPORTED TO THE EXTREMITIES. CT SCAN OF THE BRAIN DID NOT SHOW ANY SIGNIFICANT ALLERGY PER WILL CONTINUE TO MONITOR CLOSELY NEUROLOGICAL CHECK FOR THE NEXT 24 HOURS EVERY 4 HOURS AT THIS TIME PATIENT APPEARED TO BE SEPTIC WITH SOURCE OF INFECTION NOT COMPLETELY CLEAR COULD BE THE URINE. SHE DOES HAVE SOME REDNESS TO MULTIPLE PART OF HER BODY BUT NO ABSCESS IS PACKED IT WILL START ON BROAD-SPECTRUM ANTIBIOTICS FOR NOW WILL ALSO ADD ANTI FUNGAL THERAPY A PRECAUTION MONITOR CLOSELY FOR ANY SIGN OF COMPLICATIONS A SIZE C DIFF COLITIS WHILE ON ANTIBIOTIC THERAPY PATIENT WILL NEED TO BE ON A BI TRIG BED MATTRESS TO DECREASE THE RISK OF SKIN BREAKDOWN NURSING TO TURN OR ENCOURAGE PATIENT TO TURN EVERY 2 HOURS TO DECREASE THE RISK OF DECUBITUS ULCER NURSING TO PROVIDE FREQUENT SKIN CARE INDICATED ASPIRATION PRECAUTIONS TO BE MAINTAINED AT ALL TIME WELL DAILY LAB TO FOLLOW CONSULT PHYSICAL THERAPY AND OCCUPATIONAL THERAPY FOR IN BED RANGE OF MOTION EXERCISES ADDITIONAL MANAGEMENT PER CLINICAL COURSE PROGNOSIS IS GUARDED DUE TO MULTIPLE COMORBIDITIES PRESENT ADMISSION Time Spent With Patient Critical Care time: I spent a total of [] minutes of critical care time on this patient's care today; this time is exclusive of procedural time.
--- NOTE | 2021-10-11 16:24 | PC.NURSE ---
Picc line attempted x3. Unable to pass wire or introducer. Midline 20g 8cm cath placed bilat upper arms with good blood return and both flush with no problems.
[2021-10-11] MEDS: CEFEPIME 1 GM in SODIUM CHLORIDE 0.9% 100 ML IV (16:42)
[2021-10-11] MEDS: FLUCONAZOLE 100 MG TABLET 200 MG PO (18:31)
[2021-10-11] MEDS: LACTOBACILLUS ACIDOPHILUS TABLET 1 EACH PO (18:31)
[2021-10-11] MEDS: TRAMADOL 50 MG TABLET PO (19:00)
--- NOTE | 2021-10-11 19:32 | PC.NURSE ---
Pt is AxOx4, bedrest and cooperative. Pt arrived to the unit around 1645. VSS, pt is on 1L O2 and pt has Midline placed on bilateral upper. Pt c/o pain on buttock around 1900 so pt was given Tramadol 50mg PO. Pt has extensive skin redness: R hip, chest, R side cheek. hargrove is draining clear, yellow urine. Pt stated that she used to feed herself but pt is unable to feed herself now. Thus, pt is now 1:1 feeder. BG-128 around 1700. Continous fluid is running and pt is on IV ABO. No other changes. Continue monitor.
[2021-10-11] MEDS: OXYCODONE IR 5 MG TABLET PO (21:45)
[2021-10-11] MEDS: polyethylene glycoL 3350 17 GM POWD.PACK PO (21:46)
[2021-10-11] MEDS: ACETAMINOPHEN 325 MG TABLET 650 MG PO (21:47)
[2021-10-11] MEDS: INSULIN GLARGINE 100 UNIT/ML 3ML PEN 46 UNIT SUBCUT (21:49)
[2021-10-11] MEDS: SENNOSIDES 8.6 MG TABLET 17.2 MG PO (21:53)
[2021-10-11] MEDS: buPROPion SR 100 MG TAB PO (21:53)
[2021-10-11] MEDS: GABAPENTIN 600 MG TABLET PO (21:54)
[2021-10-11] MEDS: FAMOTIDINE 20 MG TABLET PO (21:54)
[2021-10-11] MEDS: lisinopriL 20 MG TABLET PO (21:54)
[2021-10-11] MEDS: ATORVASTATIN 20 MG TABLET 40 MG PO (21:54)
[2021-10-11] MEDS: APIXABAN 5 MG TABLET PO (21:54)
[2021-10-12] VITALS (17 sets, daily range): BP systolic 133–170; BP diastolic 43–82; PULSE 66–91; RESP 18–26; TEMP 36.2–37.6; O2SAT 92–96
[2021-10-12] MEDS: TRAMADOL 50 MG TABLET PO (01:16)
[2021-10-12] MEDS: VANCOMYCIN 1,250 MG/250 ML PIGGYBACK 250 MG IV (01:19)
--- NOTE | 2021-10-12 03:18 | DI.RAD.S_ITS ---
PROCEDURE: XR CHEST 1V INDICATIONS: sob, worse chf? TECHNIQUE: One view of the chest was acquired. COMPARISON: [facility], CR, XR CHEST 1V, 10/11/2021, 11:32. FINDINGS: Surgical changes and devices: None. Lungs and pleura: Cephalization of pulmonary vasculature and increased interstitial prominence compatible with progression of CHF. Patchy right perihilar and left basilar airspace opacities. No pleural effusions or pneumothorax. Mediastinum: Mediastinal contours appear normal. Heart is enlarged. Bones and chest wall: No suspicious bony lesions. Overlying soft tissues appear unremarkable. IMPRESSION: 1. Progression of CHF. 2. Right perihilar and left basilar patchy airspace opacities which could be related to pulmonary edema, atelectasis or pneumonia. Dictated by: Blanca Perez MD, PhD on 10/12/2021 at 8:07 Approved by: Blanca Perez MD, PhD on 10/12/2021 at 8:08
[2021-10-12] MEDS: FUROSEMIDE 40 MG/4 ML VIAL IV (03:36)
[2021-10-12 04:22] LABS: PCO2 ABG 53.2 mmHg (35-45)
[2021-10-12 04:23] LABS: HCO3 ABG 31 mmol/L (22-26); Oxygen Saturation ABG 60 % (95-100); PO2 ABG 32 mmHg (80-100); TCO2 ABG 33 mmol/L (21-31)
[2021-10-12 04:24] LABS: Fractionated Inspired Oxygen 28
[2021-10-12 04:40] LABS: Add Manual Diff / Slide Review YES; Hematocrit 42.2 % (36-46); Hemoglobin 13.6 g/dL (12.0-16.0); Mean Corpuscular HGB Conc 32.3 % (30-36); Mean Corpuscular Hemoglobin 30.6 PG (26-34); Mean Corpuscular Volume 94.7 fL (80-100); Platelet Count 197 X10^3/uL (150-400); Red Blood Cell Count 4.46 X10^6/uL (4.0-5.2); White Blood Cell Count 21.9 X10^3/uL (4.5-11.0)
[2021-10-12 04:46] LABS: Alanine Aminotransferase 20 IU/L (<35); Albumin 4.2 g/dL (3.5-5.0); Albumin Globulin Ratio 1.2 (1.0-2.8); Alkaline Phosphatase 87 U/L (38-126); Aspartate Aminotransferase 23 IU/L (14-36); BUN Creatinine Ratio 16.7 (6-22); Blood Urea Nitrogen 14 mg/dL (7-17); Calcium 8.8 mg/dL (8.4-10.2); Carbon Dioxide 29 mmol/L (22-32); Chloride 103 mmol/L (98-107); Estimated Glomerular Filt Rate > 60 mL/min (>60); Globulin 3.6 g/dL (1.7-4.1); Glucose 169 mg/dL (80-110); HEMOLYSIS < 15 (0-50); Magnesium 1.4 mg/dL (1.6-2.3); Phosphorous 3.3 mg/dL (2.8-4.1); Sodium 140 mmol/L (137-145); Total Protein 7.8 g/dL (6.3-8.2)
[2021-10-12 05:28] LABS: Anisocytosis 1+; Neutrophils Absolute Manual 15549 /uL (3000-5900); Total Cells Counted 100
[2021-10-12] MEDS: CEFEPIME 1 GM in SODIUM CHLORIDE 0.9% 100 ML IV ×2 (05:49→18:40)
[2021-10-12] MEDS: dilTIAZem CD 240 MG CAP PO ×2 (06:51→10:09)
--- NOTE | 2021-10-12 07:01 | PC.NURSE ---
PIANO TEACHER called, prt has been having HR 110-120's, notified Dr. Headley, given 0900 scheduled Cardizem CD 240mg 2 hours earlier d/t pt did not receive 10/11 dose.
--- NOTE | 2021-10-12 07:22 | PC.NURSE ---
Pt started having difficulty breathing after 3am, notified physician & RT that pt stated, she cannot breath, reposition pt, and given supplemental oxygen 2L via NC , O2sat was >92% whole time while pt c/o difficulty breathing, received the order for CXR, ABG, notified the result to Dr. Laguerre, Pt stated she could breath better after giving IV Lasix started working, no respiratory distress/discomfort noted after applied CPAP by RT. Given report to day shift RN.
--- NOTE | 2021-10-12 08:47 | OT.IPNOTE ---
Spoke to Hospitalist of OT order as pt is [facility] lift transfer and needs assist for all her ADL's at her facility. Therefore hospitalist agreed that therapy orders can be discharged.
--- NOTE | 2021-10-12 09:04 | PT-IP ANOTE ---
Reviewed EMR. pt resides at [facility] and has been using a usman lift for transfer and mostly bed bound or uses a manual w/c with assistance for maneuvering when out of bed. No PT intervention indicated and will d/c PT eval order. manager transmission and doctor aware.
--- NOTE | 2021-10-12 09:15 | PC.NURSE ---
Patient is resting in bed, just finished eating breakfast. Patient is turned and repositioned onto left side for thirty degree tilt with pillow, heels on pillows, pillow under right arm for comfort. Patient has a bordered foam dressing to ulcer measuring 0.7 x 0.4 x 0.05cm to inner right gluteal cleft, which was present on admission and appears to be a Stage 2 Pressure Injury. The wound bed is pink, no drainage is noted, edges are intact and appear to be healing. Bordered foam dressing is in place for protection, patient is positioned to help offload this area. Skin is warm and dry, hargrove catheter in place draining yellow urine to gravity. Left medial lower extremity has a 7 x 12cm area of scar tissue from healed ulcer that I had a long time ago, patient says. This healed wound has no noted open areas, scar tissue is intact. Pannus and under breasts are both inspected to reveal no signs of skin breakdown, no areas of significant redness noted.
[2021-10-12] MEDS: polyethylene glycoL 3350 17 GM POWD.PACK PO ×2 (10:07→21:24)
[2021-10-12] MEDS: buPROPion SR 100 MG TAB PO ×2 (10:07→21:22)
[2021-10-12] MEDS: LACTOBACILLUS ACIDOPHILUS TABLET 1 EACH PO ×3 (10:07→18:40)
[2021-10-12] MEDS: ARIPiprazole 10 MG TABLET 2.5 MG PO (10:07)
[2021-10-12] MEDS: FLUCONAZOLE 100 MG TABLET 200 MG PO (10:08)
[2021-10-12] MEDS: ASPIRIN EC 81 MG TABLET PO (10:08)
[2021-10-12] MEDS: FAMOTIDINE 20 MG TABLET PO ×2 (10:08→21:22)
[2021-10-12] MEDS: GABAPENTIN 600 MG TABLET PO ×3 (10:08→21:23)
[2021-10-12] MEDS: APIXABAN 5 MG TABLET PO ×2 (10:10→21:22)
[2021-10-12] MEDS: lisinopriL 20 MG TABLET PO ×2 (10:10→21:22)
[2021-10-12] MEDS: DULOXETINE 30 MG CAPSULE 90 MG PO (10:10)
[2021-10-12] MEDS: LEVOTHYROXINE 100 MCG TABLET PO (10:10)
[2021-10-12] MEDS: NYSTATIN CREAM 30 GM 1 APPLIC TOP ×2 (10:12→21:25)
[2021-10-12] MEDS: POTASSIUM CHLORIDE 10 MEQ TAB PO (10:12)
[2021-10-12] MEDS: INSULIN LISPRO 100 UNIT/ML 3ML VIAL SUBCUT ×4 (10:15→21:20)
[2021-10-12] MEDS: INSULIN GLARGINE 100 UNIT/ML 3ML PEN 40 UNIT SUBCUT (10:16)
[2021-10-12] MEDS: BUMETANIDE 1 MG TABLET PO (10:44)
[2021-10-12] MEDS: MAGNESIUM CHLORIDE 64 MG TABLET 128 MG PO (10:44)
--- NOTE | 2021-10-12 11:10 | PC.NURSE ---
Patient turns to left side with assist of 2 staff so photo of gluteal pressure injury can be taken. Patient tolerates well and is then is tilted onto right side using pillow to help position.
--- NOTE | 2021-10-12 11:56 | P.PN_ITS ---
Subjective Subjective Interval history: THIS IS A MORBIDLY OBESE 81 YEAR OLD FEMALE. PATIENT HAS BEEN ADMITTED WITH SYMPTOMS WHICH WAS SUSPICIOUS FOR POSSIBLE TIA/CVA. CVA HAS BEEN RULED OUT. TIA COOL HAVE BEEN A POSSIBILITY PATIENT IS ALSO BEING TREATED FOR SOME CELLULITIS OF THE LEFT HIP. NO OPEN LESION UTI IS ALSO SUSPECTED WITH SIGNIFICANT PYURIA NOTED ON URINALYSIS ON ADMISSION. PRIOR CULTURE NOTED WITH COLI, PROTEUS TODAY PATIENT STATED THAT SHE FEELS BETTER NO REPORTED SHORTNESS OF BREATH SHE SLEPT WELL SHE DENIES ANY NAUSEA. NO VOMITING NO CHEST PAIN. NO CHEST PRESSURE Exam Vital Signs (past 8 hours): - 10/12/21 04:37 10/12/21 05:00 10/12/21 07:48 Pulse Rate 85 Respiratory Rate 24 Blood Pressure 155/81 H Pulse Oximetry 94 93 96 10/12/21 08:00 10/12/21 10:10 Pulse Rate 86 86 Respiratory Rate 18 Blood Pressure 145/82 H 145/82 H Pulse Oximetry 96 Oxygen Delivery Method CPAP Oxygen Flow Rate 2 Narrative Exam Narrative: NO ACUTE DISTRESS.? PATIENT IS ALERT ORIENTED X2.? MORBIDLY OBESE. HEAD ATRAUMATIC NORMOCEPHALIC NECK : ? NO LYMPHADENOPATHY.? SOME REDNESS NOTED ON THE RIGHT SIDE OF THE NECK.? NONTENDER TO TOUCH.? NO PALPATING MASS. EYE:? EOMI, PERRLA, NORMAL CONJUNCTIVA; NO JAUNDICE CHEST:? REGULAR RATE.? ? NO RUBS.? PMI IS NON DISPLACED.? NO MURMURS; NORMAL S1- S2 PULMONARY:? ? DECREASED BREATH SOUND AT THE BASES.? BIBASILAR CRACKLES.? NO RALES.? NO RHONCHI. ABDOMEN:? OBESE BUT? SOFT.? NONTENDER.? ? BOWEL SOUNDS ARE PRESENT IN ALL 4 QUADRANTS.? NO MASS. NO GUARDING.? NO REBOUND TENDERNESS EXTREMITIES: CHRONIC DEFORMITIES NOTED TO BILATERAL LOWER EXTREMITIES.? EDEMA AT 2+ NONPITTING BILATERALLY ALSO APPRECIATED.? PULSES ARE APPRECIATED BILATERALLY AND EQUAL NEURO:? CRANIAL NERVES 2-12 GROSSLY INTACT. NO FOCAL NEUROLOGICAL DEFICIT NOTED. CHRONIC DEFORMITIES.? ? CHRONIC WEAKNESS WITH STRENGTH BEING 4/5 ALSO AND APPRECIATED TO BILATERAL LOWER AND UPPER EXTREMITIES. MSK:? NORMAL RANGE OF MOTION FOR AGE.? NO JOINT EFFUSION. POOR MUSCULATURE.? DEFORMITIES SKIN:? FAIR SKIN TURGOR. REDNESS ONLY APPRECIATED TO THE LEFT HEEL. NONTENDER TO TOUCH :? NORMAL EXTERNAL GENITALIA.? CRAMER CATHETER IN PLACE WITH.? AWAIT URINE PSYCH : ? CALM.? OPERATIVE. Objective Labs Result Diagrams: 10/12/21 04:14 10/12/21 04:14 Labs: Laboratory Results - last 24 hr 10/11/21 10/11/21 10/12/21 11:35 14:40 03:58 WBC RBC Hgb Hct MCV MCH MCHC RDW Plt Count Neut % (Auto) Lymph % (Auto) [place] % (Auto) Eos % (Auto) Baso % (Auto) Lymph # (Auto) [place] # (Auto) Baso # (Auto) Total Counted Seg Neutrophils % Band Neutrophils % Lymphocytes % (Manual) Monocytes % (Manual) Neutrophils # (Manual) RBC Morphology Anisocytosis ABG pH 7.38 ABG pCO2 53.2 H ABG pO2 32 L* ABG HCO3 31 H ABG Total CO2 33 H ABG O2 Saturation 60 L* ABG Base Excess 6.0 H FiO2 28 Sodium Potassium Chloride Carbon Dioxide BUN Creatinine Estimated GFR BUN/Creatinine Ratio Glucose Lactate 2.0 Calcium Phosphorus Magnesium Total Bilirubin AST ALT Alkaline Phosphatase Total Protein Albumin Globulin Albumin/Globulin Ratio Urine Color Yellow Urine Appearance Clear Urine pH 5.0 Ur Specific [place] 1.010 Urine Protein 1+ H Urine Glucose (UA) Negative Urine Ketones Negative Urine Occult Blood 2+ H Urine Nitrate Negative Urine Bilirubin Negative Urine Urobilinogen 0.2 Ur Leukocyte Esterase 2+ H Urine RBC 5-10/hpf H Urine WBC 30-100/hpf H Ur Squamous Epith Cells >30 /hpf H D Urine Bacteria Moderate (10-30) H Ur Culture Indicated? Cult not indicated 10/12/21 10/12/21 04:14 04:14 WBC 21.9 H RBC 4.46 Hgb 13.6 Hct 42.2 MCV 94.7 MCH 30.6 MCHC 32.3 RDW 15.0 H Plt Count 197 Neut % (Auto) Not Reportable Lymph % (Auto) Not Reportable [place] % (Auto) Not Reportable Eos % (Auto) Not Reportable Baso % (Auto) Not Reportable Lymph # (Auto) Not Reportable [place] # (Auto) Not Reportable Baso # (Auto) Not Reportable Total Counted 100 Seg Neutrophils % 68.0 Band Neutrophils % 3.0 Lymphocytes % (Manual) 7.0 L Monocytes % (Manual) 22.0 H Neutrophils # (Manual) 20059 H RBC Morphology See below Anisocytosis 1+ H ABG pH ABG pCO2 ABG pO2 ABG HCO3 ABG Total CO2 ABG O2 Saturation ABG Base Excess FiO2 Sodium 140 Potassium 4.0 Chloride 103 Carbon Dioxide 29 BUN 14 Creatinine 0.84 Estimated GFR > 60 BUN/Creatinine Ratio 16.7 Glucose 169 H Lactate Calcium 8.8 Phosphorus 3.3 Magnesium 1.4 L Total Bilirubin 1.0 AST 23 ALT 20 Alkaline Phosphatase 87 Total Protein 7.8 Albumin 4.2 Globulin 3.6 Albumin/Globulin Ratio 1.2 Urine Color Urine Appearance Urine pH Ur Specific [place] Urine Protein Urine Glucose (UA) Urine Ketones Urine Occult Blood Urine Nitrate Urine Bilirubin Urine Urobilinogen Ur Leukocyte Esterase Urine RBC Urine WBC Ur Squamous Epith Cells Urine Bacteria Ur Culture Indicated? [facility] Medical History Acute on chronic respiratory failure with hypoxia and hypercapnia Anemia Atherosclerotic heart disease of [place] coronary artery without angina pectoris Atrial fibrillation Chronic kidney disease, stage 3 Chronic pain syndrome Diabetes Gastroesophageal reflux disease Hereditary and idiopathic neuropathy, unspecified Hyperlipidemia Hypertension Hypertensive chronic kidney disease with stage 1 through stage 4 chronic kidney disease, or unspecified chronic kidney disease Hypothyroidism Hypoventilation associated with obesity syndrome Insomnia intermediate current use of anticoagulant therapy Major depressive disorder Obesity Obstructive sleep apnea Urinary incontinence Venous insufficiency (chronic) (peripheral) Wheelchair bound Surgical History History of abdominal hysterectomy History of bilateral knee replacement History of toe surgery Family History Father Stroke Mother Cancer Social History household members: children and caregiver Smoking Status: Former smoker alcohol intake: former Assessment & Plan Assessment & Plan narrative: IMPRESSION POSSIBLE TIA.? SYMPTOMS RESOLVED. MONITOR CLOSELY ?POSSIBLE ? CELLULITIS TO? MIDDLE RIGHT NECK/ UPPER CHEST. RULED OUT ?POSSIBLE CELLULITIS TO LEFT. RULED OUT. LOSES SUSPECTED ?LEUKOCYTOSIS.? LIKELY DUE TO INFECTIOUS? PROCESS. SOURCE IS LIKELY URINE ?FEVER.? LIKELY ASSOCIATED WITH INFECTIOUS PROCESS. RESOLVED ?POSSIBLE SEPSIS.? PRESENT ON ARRIVAL.? SOURCE? COULD BE THE URINE.? LIKELY GRAM-NEGATIVE BACTERIA ?LACTIC ACIDOSIS.? LIKELY ASSOCIATED WITH SEPSIS. RESOLVED ?ACUTE PYELONEPHRITIS.? GRAM-NEGATIVE BACTERIA SUSPECTED. ON ANTIBIOTICS ?MORBID OBESITY.? COUNSELING TO BE GIVEN ONCE APPROPRIATE ?ELIQUIS COAGULOPATHY.? MONITOR CLOSELY ?ATRIAL FIBRILLATION PER HISTORY.? ON TELE AT ALL TIMES ?DIABETES TYPE 2 PER HISTORY ?CHRONIC? RESPIRATORY FAILURE PER HISTORY ?HYPERTENSION PER HISTORY ?HYPERLIPIDEMIA PER HISTORY ?BED- CONFINEMENT STATE PER HX ?PLAN PATIENT LABS IMPROVED OVERNIGHT WHILE ON ANTIBIOTICS I SUSPECT THE SOURCE OF HER INFECTION IS LIKELY THE URINE WILL CONTINUE CEFEPIME FOR NOW DOXY WILL BE CONTINUED WELL FOR ANOTHER 24-48 HOURS WILL DISCONTINUE VANCOMYCIN CONTINUE DIFLUCAN HOWEVER. CONTINUE TO FOLLOW DAILY CBC ADJUST ANTIBIOTIC THERAPY PER CLINICAL COURSE MONITOR CLOSELY FOR SIGN OF DIARRHEA WHICH COULD INDICATE C DIFF COLITIS NO INDICATIONS FOR CELLULITIS AT THIS TIME. REDNESS NOTED ON ADMISSION HAS SIGNIFICANTLY IMPROVED THIS WAS LIKELY DERMATITIS OF UNCLEAR CAUSE. PATIENT HAS NO RESIDUAL NEURO DEFICIT AT THIS TIME. HER SYMPTOMS ON ADMISSION COULD HAVE BEEN A TIA. WILL MONITOR CLOSELY ON IT FOR NOW. ABG OVERNIGHT APPEAR TO SHOW THAT PATIENT IS A CHRONIC RETAINER. SHE HAS OHS/[place] AND WILL ORDER BIPAP TO BE USED AT NIGHT NEEDED PATIENT APPEARED TO BE FLUID OVERLOADED WELL WILL START ON BUMEX AND TO 3 DAYS METOLAZONE MONITOR KIDNEY FUNCTION AND ELECTROLYTES CLOSELY STRICT INPUT AND OUTPUT DAILY WEIGHTS WITH SAME SCALE ADDITIONAL MANAGEMENT PER CLINICAL COURSE PROGNOSIS REMAIN GUARDED 10/11 ?IN REGARD TO NEUROLOGICAL SYMPTOM REPORTED BY THE ER ?ON ADMISSION PATIENT DENIES ANY WEAKNESS ?STATED THAT SHE FEELS LIKE SHE IS AT BASELINE ?NO NUMBNESS REPORTED TO THE EXTREMITIES. ? CT SCAN OF THE BRAIN DID NOT SHOW ANY SIGNIFICANT ALLERGY PER ?WILL CONTINUE TO MONITOR CLOSELY ?NEUROLOGICAL CHECK FOR THE NEXT 24 HOURS EVERY 4 HOURS ?AT THIS TIME PATIENT APPEARED TO BE SEPTIC WITH SOURCE OF INFECTION NOT COMPLETELY CLEAR ?COULD BE THE URINE. ? SHE DOES HAVE SOME REDNESS TO MULTIPLE PART OF HER BODY BUT NO ABSCESS IS PACKED IT ?WILL START ON BROAD-SPECTRUM ANTIBIOTICS FOR NOW ?WILL ALSO ADD ANTI FUNGAL THERAPY A PRECAUTION ?MONITOR CLOSELY FOR ANY SIGN OF COMPLICATIONS A SIZE C DIFF COLITIS WHILE ON ANTIBIOTIC? THERAPY ?PATIENT WILL NEED TO BE ON A BI TRIG BED MATTRESS TO DECREASE THE RISK OF SKIN BREAKDOWN ?NURSING TO TURN OR ENCOURAGE PATIENT TO TURN EVERY 2 HOURS TO DECREASE THE RISK OF DECUBITUS ULCER ?NURSING TO PROVIDE FREQUENT SKIN CARE INDICATED ?ASPIRATION? PRECAUTIONS TO BE MAINTAINED AT ALL TIME WELL ?DAILY LAB TO FOLLOW ?CONSULT PHYSICAL THERAPY AND OCCUPATIONAL THERAPY FOR IN BED RANGE? OF MOTION EXERCISES ?ADDITIONAL MANAGEMENT PER CLINICAL COURSE ?PROGNOSIS IS GUARDED DUE TO MULTIPLE COMORBIDITIES PRESENT ADMISSION Time Spent With Patient Critical Care time: I spent a total of [] minutes of critical care time on this patient's care today; this time is exclusive of procedural time. Quality VTE Deep Vein Thrombosis/Pulmonary Embolism Present on Admission: No
--- NOTE | 2021-10-12 15:02 | CM.DANOTE ---
Patient is an 81 yo female who was admitted on 10/11/21 for Aphasia. Pt has MCR and LIFE and AARON and her PCP is Fernanda Knox. EMR was reviewed. Per MD, pt with cellulitis of the hip, r/o TIA, and UTI. Pt not yet medically stable to d/c. PT/OT cancelled as pt mostly bedbound and usman lift at baseline for the past at least 3 years. Per RN, pt is A&Ox4 and has been able to feed self at baseline but currently needing 1:1 feed. Per DI RN, PICC was not able to be placed but Midline was successful. SW met bedside with pt and explained role and pt able to confirm that she is feeling a little better and still resides at [facility] and has two adult Dtrs locally. Pt's Dtr Jenny is [employer] and Dtr Carina works at the local [employer]. Pt confirms she still uses a usman for transfers and anticipates discharging back to [facility] at discharge if close to baseline. Pt was last admitted in August 2021 last month and was able to d/c back to [facility] via BLS. SW faxed pt's H&P and prog note to [place] to review and left msg indicating pt may remain in the hospital another 1-2 days pending progress. Plan: SW to follow closely for pt's progress and ability to feed self and get closer to baseline to confirm with [place] they can accept pt back at discharge. NEEL Noble Discharge Planning/Care Management CM Discharge Assessment Start: 10/12/21 14:58 Freq: Status: Active Protocol: Document 10/12/21 14:58 (Rec: 10/12/21 15:02 [id number]) Discharge Planning Assessment Assigned [employer] NEEL Cope DPOA/Assigned Designee Name Dtr Jenny Contact Information [phone] Advance Directives? Yes: POLST Advance Directives on File Yes History Provided By Patient,Medical Record Has Patient been admitted in last 30 No days? Comment Little over a month ago pt was admitted 09/08/21 for SOB and returned to [facility] via BLS Prior Living Arrangements Assisted Living Type of transporation used prior to Relies on Others admit Facility Name Admitted From: [facility] Willing to Return to Facility? Yes Independent with ADL's No Is patient alert and oriented? Yes Needs Assistance With Bathing,Grooming,Meal Prep, Managing Medications,Home Chores / Shopping Caregiver for Another No Comment uses a bariatric motorized w/c and usman lift. Current wt: 363 lbs Comment Anticipate D/C back to [facility] Barriers to Discharge No Discharge Plan Assisted Living Facility Transportation Arrangement May need BLS transport at d/c If patient plan is SNF: Has PASSR been No: Not needed if returns to completed? [facility] Whiteboard Updated in Patient Room with Yes name and ext. # of [employer] Review Status In Process Please Provide Date Initial DC 10/12/21 Assessment Was Performed Next Review Type Continued Stay Review
[2021-10-12] MEDS: INSULIN GLARGINE 100 UNIT/ML 3ML PEN 46 UNIT SUBCUT (21:18)
[2021-10-12] MEDS: ATORVASTATIN 20 MG TABLET 40 MG PO (21:21)
[2021-10-12] MEDS: SENNOSIDES 8.6 MG TABLET 17.2 MG PO (21:23)
[2021-10-12] MEDS: DOXYCYCLINE HYCLATE 100 MG TABLET PO (21:30)
[2021-10-13] VITALS (19 sets, daily range): BP systolic 101–167; BP diastolic 50–70; PULSE 59–85; RESP 16–32; TEMP 35.8–38.3; O2SAT 95–97
[2021-10-13] MEDS: TRAMADOL 50 MG TABLET PO ×4 (00:47→21:32)
[2021-10-13] MEDS: ACETAMINOPHEN 325 MG TABLET 650 MG PO ×2 (03:11→10:07)
[2021-10-13 04:26] LABS: pH ABG 7.38 (7.35-7.45)
[2021-10-13] MEDS: SODIUM CHLORIDE 0.9% 250 ML 21 ML IV (04:51)
[2021-10-13] MEDS: CEFEPIME 1 GM in SODIUM CHLORIDE 0.9% 100 ML IV ×2 (04:51→18:16)
[2021-10-13] MEDS: SODIUM CHLORIDE 0.9% FLUSH 10 ML IV ×3 (05:01→21:22)
[2021-10-13 05:46] LABS: Alanine Aminotransferase 19 IU/L (<35); Albumin 3.8 g/dL (3.5-5.0); Albumin Globulin Ratio 1.1 (1.0-2.8); Alkaline Phosphatase 70 U/L (38-126); Aspartate Aminotransferase 21 IU/L (14-36); BUN Creatinine Ratio 17.9 (6-22); Bilirubin Total 1.1 mg/dL (0.2-1.3); Blood Urea Nitrogen 15 mg/dL (7-17); Calcium 8.5 mg/dL (8.4-10.2); Carbon Dioxide 30 mmol/L (22-32); Chloride 101 mmol/L (98-107); Estimated Glomerular Filt Rate > 60 mL/min (>60); Globulin 3.4 g/dL (1.7-4.1); Glucose 232 mg/dL (80-110); HEMOLYSIS 21 (0-50); Magnesium 1.3 mg/dL (1.6-2.3); Phosphorous 2.8 mg/dL (2.8-4.1); Sodium 139 mmol/L (137-145); Total Protein 7.2 g/dL (6.3-8.2)
[2021-10-13 06:02] LABS: Hematocrit 37.2 % (36-46); Hemoglobin 12.3 g/dL (12.0-16.0); Mean Corpuscular HGB Conc 33.1 % (30-36); Mean Corpuscular Hemoglobin 30.9 PG (26-34); Mean Corpuscular Volume 93.3 fL (80-100); Platelet Count 168 X10^3/uL (150-400); Red Blood Cell Count 3.98 X10^6/uL (4.0-5.2); Red Cell Distribution Width 14.6 % (11.6-14.8); White Blood Cell Count 18.2 X10^3/uL (4.5-11.0)
[2021-10-13 06:14] LABS: Add Manual Diff / Slide Review YES
[2021-10-13 07:14] LABS: Neutrophils Absolute Manual 13832 /uL (3000-5900); Total Cells Counted 100
[2021-10-13 07:15] LABS: Anisocytosis 1+
[2021-10-13] MEDS: LEVOTHYROXINE 100 MCG TABLET PO (08:16)
[2021-10-13] MEDS: INSULIN LISPRO 100 UNIT/ML 3ML VIAL SUBCUT ×4 (08:18→21:10)
[2021-10-13] MEDS: INSULIN GLARGINE 100 UNIT/ML 3ML PEN 40 UNIT SUBCUT (08:22)
[2021-10-13] MEDS: DULOXETINE 30 MG CAPSULE 90 MG PO (10:04)
[2021-10-13] MEDS: FLUCONAZOLE 100 MG TABLET 200 MG PO (10:04)
[2021-10-13] MEDS: LACTOBACILLUS ACIDOPHILUS TABLET 1 EACH PO ×3 (10:04→18:13)
[2021-10-13] MEDS: ASPIRIN EC 81 MG TABLET PO (10:04)
[2021-10-13] MEDS: POTASSIUM CHLORIDE 10 MEQ TAB PO (10:05)
[2021-10-13] MEDS: dilTIAZem CD 240 MG CAP PO (10:06)
[2021-10-13] MEDS: APIXABAN 5 MG TABLET PO ×2 (10:06→21:20)
[2021-10-13] MEDS: BUMETANIDE 1 MG TABLET PO (10:06)
[2021-10-13] MEDS: FAMOTIDINE 20 MG TABLET PO ×2 (10:06→21:20)
[2021-10-13] MEDS: buPROPion SR 100 MG TAB PO ×2 (10:06→21:13)
[2021-10-13] MEDS: GABAPENTIN 600 MG TABLET PO ×3 (10:07→21:20)
[2021-10-13] MEDS: lisinopriL 20 MG TABLET PO ×2 (10:08→21:13)
[2021-10-13] MEDS: DOXYCYCLINE HYCLATE 100 MG TABLET PO ×2 (10:08→21:21)
[2021-10-13] MEDS: ARIPiprazole 10 MG TABLET 2.5 MG PO (10:10)
[2021-10-13] MEDS: polyethylene glycoL 3350 17 GM POWD.PACK PO ×2 (10:11→21:12)
[2021-10-13] MEDS: NYSTATIN CREAM 30 GM 1 APPLIC TOP ×2 (11:16→21:21)
[2021-10-13] MEDS: MAGNESIUM CHLORIDE 64 MG TABLET 128 MG PO (11:31)
--- NOTE | 2021-10-13 12:44 | CM.DPC ---
Addendum entered by Justine Issa R.N. 10/13/21 15:48: Spoke to Devi at [facility]. She indicated., patient is going to [facility]. Devi indicated that she thinks that it may be long-term after Medicare. At this time, Jackie has confirmed acceptance on her Medicare. Will update her when patient is medically ready, according to hospitalist, may be for a couple of days. Original Note: DCP Cont: Discussed patient during team rounds. Hospitalist indicated, patient may be here for a couple more days, her white count is elevated. Did give referral to Jackie at [facility], in case [facility] is reluctant to take patient back right away. Jackie is familiar with patient, and can accept if needed. Patient is inpatient as of 10-11. Left a message with [facility], to have Blanca call this DC environmental restoration planner so she can be updated. P: DCP to continue to follow. Patient will either return to [facility], or go to [facility]. This will also depend upon how long patient needs IV ABO. Justine Issa RN/Volcanology Professor
[2021-10-13 15:52] LABS: Vancomycin Trough 5.1 ug/mL (10-20)
--- NOTE | 2021-10-13 17:03 | P.PN_ITS ---
Subjective Subjective Date Patient Seen: 10/13/21 Interval history: BRIEF HPI THIS IS A MORBIDLY OBESE 81 YEAR OLD FEMALE.? PATIENT HAS BEEN ADMITTED WITH SYMPTOMS WHICH WAS SUSPICIOUS FOR POSSIBLE TIA/CVA.? CVA HAS BEEN RULED OUT.? TIA COOL HAVE BEEN A POSSIBILITY PATIENT IS ALSO BEING TREATED FOR SOME DERMATITIS OF THE LEFT HIP.? NO OPEN LESION; IMPROVED UTI IS ALSO SUSPECTED WITH SIGNIFICANT PYURIA NOTED ON URINALYSIS ON ADMISSION. PRIOR CULTURE NOTED WITH COLI, PROTEUS TODAY FEELING BETTER TODAY NO NAUSEA OR VOMITING NO SHORTNESS OF BREATH SHE DENIES ANY NAUSEA.? NO VOMITING NO CHEST PAIN.? NO CHEST PRESSURE Exam Vital Signs (past 8 hours): - 10/13/21 09:34 10/13/21 10:08 10/13/21 12:00 Temperature 96.6 F L Pulse Rate 74 62 Respiratory Rate 18 Blood Pressure 142/56 H 101/50 L Pulse Oximetry 95 97 10/13/21 13:00 10/13/21 15:59 Temperature 96.4 F L Pulse Rate 59 L Respiratory Rate 18 Blood Pressure 129/52 L Pulse Oximetry 96 Oxygen Delivery Method Nasal Cannula Oxygen Flow Rate 2 Narrative Exam Narrative: NO ACUTE DISTRESS.? PATIENT IS ALERT ORIENTED X2.? MORBIDLY OBESE. HEAD ATRAUMATIC NORMOCEPHALIC NECK : ? NO LYMPHADENOPATHY.? SOME REDNESS NOTED ON THE RIGHT SIDE OF THE NECK.? NONTENDER TO TOUCH.? NO PALPATING MASS. EYE:? EOMI, PERRLA, NORMAL CONJUNCTIVA; NO JAUNDICE CHEST:? REGULAR RATE.? ? NO RUBS.? PMI IS NON DISPLACED.? NO MURMURS; NORMAL S1- S2 PULMONARY:? ? DECREASED BREATH SOUND AT THE BASES.? BIBASILAR CRACKLES.? NO RALES.? NO RHONCHI. ABDOMEN:? OBESE BUT? SOFT.? NONTENDER.? ? BOWEL SOUNDS ARE PRESENT IN ALL 4 QUADRANTS.? NO MASS. NO GUARDING.? NO REBOUND TENDERNESS EXTREMITIES: CHRONIC DEFORMITIES NOTED TO BILATERAL LOWER EXTREMITIES.? EDEMA AT 2+ NONPITTING BILATERALLY ALSO APPRECIATED.? PULSES ARE APPRECIATED BILATERALLY AND EQUAL NEURO:? CRANIAL NERVES 2-12 GROSSLY INTACT. NO FOCAL NEUROLOGICAL DEFICIT NOTED. CHRONIC DEFORMITIES.? ? CHRONIC WEAKNESS WITH STRENGTH BEING 4/5 ALSO AND APPRECIATED TO BILATERAL LOWER AND UPPER EXTREMITIES. MSK:? NORMAL RANGE OF MOTION FOR AGE.? NO JOINT EFFUSION. POOR MUSCULATURE.? DEFORMITIES SKIN:? FAIR SKIN TURGOR.? REDNESS ONLY APPRECIATED TO THE LEFT HEEL.? NONTENDER TO TOUCH :? NORMAL EXTERNAL GENITALIA.? CRAMER CATHETER IN PLACE WITH YELLOWISH URINE PSYCH : ? CALM.? OPERATIVE. Objective Labs Result Diagrams: 10/13/21 05:18 10/13/21 05:18 Labs: Laboratory Results - last 24 hr 10/12/21 10/13/21 10/13/21 03:58 05:18 05:18 WBC 18.2 H RBC 3.98 L Hgb 12.3 Hct 37.2 MCV 93.3 MCH 30.9 MCHC 33.1 RDW 14.6 Plt Count 168 Neut % (Auto) Not Reportable Lymph % (Auto) Not Reportable [place] % (Auto) Not Reportable Eos % (Auto) Not Reportable Baso % (Auto) Not Reportable Lymph # (Auto) Not Reportable [place] # (Auto) Not Reportable Baso # (Auto) Not Reportable Total Counted 100 Seg Neutrophils % 74.0 H Band Neutrophils % 2.0 L Lymphocytes % (Manual) 7.0 L Atypical Lymphs % 1.0 H Monocytes % (Manual) 16.0 H Neutrophils # (Manual) 96384 H RBC Morphology Not Reportable Anisocytosis 1+ H ABG pH 7.38 Sodium 139 Potassium 4.0 Chloride 101 Carbon Dioxide 30 BUN 15 Creatinine 0.84 Estimated GFR > 60 BUN/Creatinine Ratio 17.9 Glucose 232 H Calcium 8.5 Phosphorus 2.8 Magnesium 1.3 L Total Bilirubin 1.1 AST 21 ALT 19 Alkaline Phosphatase 70 Total Protein 7.2 Albumin 3.8 Globulin 3.4 Albumin/Globulin Ratio 1.1 Vancomycin Trough 10/13/21 13:30 WBC RBC Hgb Hct MCV MCH MCHC RDW Plt Count Neut % (Auto) Lymph % (Auto) [place] % (Auto) Eos % (Auto) Baso % (Auto) Lymph # (Auto) [place] # (Auto) Baso # (Auto) Total Counted Seg Neutrophils % Band Neutrophils % Lymphocytes % (Manual) Atypical Lymphs % Monocytes % (Manual) Neutrophils # (Manual) RBC Morphology Anisocytosis ABG pH Sodium Potassium Chloride Carbon Dioxide BUN Creatinine Estimated GFR BUN/Creatinine Ratio Glucose Calcium Phosphorus Magnesium Total Bilirubin AST ALT Alkaline Phosphatase Total Protein Albumin Globulin Albumin/Globulin Ratio Vancomycin Trough 5.1 L [facility] Medical History Acute on chronic respiratory failure with hypoxia and hypercapnia Anemia Atherosclerotic heart disease of [place] coronary artery without angina pectoris Atrial fibrillation Chronic kidney disease, stage 3 Chronic pain syndrome Diabetes Gastroesophageal reflux disease Hereditary and idiopathic neuropathy, unspecified Hyperlipidemia Hypertension Hypertensive chronic kidney disease with stage 1 through stage 4 chronic kidney disease, or unspecified chronic kidney disease Hypothyroidism Hypoventilation associated with obesity syndrome Insomnia MCC current use of anticoagulant therapy Major depressive disorder Obesity Obstructive sleep apnea Urinary incontinence Venous insufficiency (chronic) (peripheral) Wheelchair bound Surgical History History of abdominal hysterectomy History of bilateral knee replacement History of toe surgery Family History Father Stroke Mother Cancer Social History household members: children and caregiver Smoking Status: Former smoker alcohol intake: former Assessment & Plan Assessment & Plan narrative: IMPRESSION POSSIBLE TIA.? SYMPTOMS RESOLVED.? MONITOR CLOSELY ?POSSIBLE CELLULITIS TO LEFT THIGH ; RULED OUT.? MILD DERMATITIS SUSPECTED ?LEUKOCYTOSIS.? LIKELY DUE TO INFECTIOUS? PROCESS.? SOURCE IS LIKELY URINE ?FEVER.? LIKELY ASSOCIATED WITH INFECTIOUS PROCESS.? RESOLVED ?POSSIBLE SEPSIS.? PRESENT ON ARRIVAL.? SOURCE? COULD BE THE URINE.? LIKELY GRAM-NEGATIVE BACTERIA ?LACTIC ACIDOSIS.? LIKELY ASSOCIATED WITH SEPSIS.? RESOLVED ?ACUTE PYELONEPHRITIS.? ? GRAM-NEGATIVE BACTERIA SUSPECTED.? ON ANTIBIOTICS ?MORBID OBESITY.? COUNSELING TO BE GIVEN ONCE APPROPRIATE ?ELIQUIS COAGULOPATHY.? MONITOR CLOSELY ?ATRIAL FIBRILLATION PER HISTORY.? ON TELE AT ALL TIMES ?DIABETES TYPE 2 PER HISTORY ?CHRONIC? RESPIRATORY FAILURE PER HISTORY ?HYPERTENSION PER HISTORY ?HYPERLIPIDEMIA PER HISTORY ?BED- CONFINEMENT STATE PER HX CHRONIC HEART FAILURE WITH PRESERVED EJECTION FRACTION. NO SIGN OF ACUTE EXACERBATION HYPO MAGNESEMIA. TO BE REPLACED BY PHARMACY TEAM ?PLAN IN REGARD TO HER HEART FAILURE. THIS IS CHRONIC NO SIGN OF ACUTE EXACERBATION/DECOMPENSATION SUSPECTED AT THIS TIME. PATIENT APPEARS TO BE RESPONDING WELL IN REGARD TO DIURETIC THERAPY. SHE DOES HAVE SOME LOWER EXTREMITY EDEMA BUT THIS COULD BE DUE TO NONCOMPLIANCE WITH DIURETIC THERAPY. KIDNEY FUNCTIONS HOLDING FAIRLY WELL WHILE ON DIURETIC. NO SIGNIFICANT ELECTROLYTES ABNORMALITY APPRECIATED. CONTINUE TO MONITOR INPUT AND OUTPUT CLOSELY NURSING TO WEIGH PATIENT DAILY AND REPORT ANY SIGNIFICANT WEIGHT GAIN. FLUID RESTRICTION IN PLACE AND TO BE FOLLOWED ORDERED. PATIENT APPEARED TO BE CLINICALLY IMPROVED. HER WHITE BLOOD CELL COUNT REMAINED ELEVATED BUT IMPROVED OVERNIGHT CONTINUE CURRENT ANTIBIOTICS FOR NOW AGAIN, ANTIBIOTICS TREATMENT IS TAILORED USING LAST CULTURE. WILL CONSIDER REPEATING ALL CULTURES IF INDICATED CLINICALLY BLOOD CULTURE REMAINS NEGATIVE TO DATE. BLOOD SUGAR HAS BEEN REMAINING ABOVE DUE TO 100S WILL INCREASE MORNING DOSE OF LANTUS TODAY FOR STRICTER BLOOD SUGAR CONTROL ADDITIONAL MANAGEMENT PER CLINICAL COURSE 10/12 PATIENT LABS IMPROVED OVERNIGHT WHILE ON ANTIBIOTICS I SUSPECT THE SOURCE OF HER INFECTION IS LIKELY THE URINE WILL CONTINUE CEFEPIME FOR NOW DOXY WILL BE CONTINUED WELL FOR ANOTHER 24-48 HOURS WILL DISCONTINUE VANCOMYCIN CONTINUE DIFLUCAN HOWEVER. CONTINUE TO FOLLOW DAILY CBC ADJUST? ANTIBIOTIC THERAPY PER CLINICAL COURSE MONITOR CLOSELY FOR SIGN OF DIARRHEA WHICH COULD INDICATE C DIFF COLITIS NO INDICATIONS FOR CELLULITIS AT THIS TIME. REDNESS NOTED ON ADMISSION HAS SIGNIFICANTLY IMPROVED THIS WAS LIKELY DERMATITIS OF UNCLEAR CAUSE. PATIENT HAS NO RESIDUAL NEURO DEFICIT AT THIS TIME. HER SYMPTOMS ON ADMISSION COULD HAVE BEEN A TIA. WILL MONITOR CLOSELY ON IT FOR NOW. ABG OVERNIGHT APPEAR TO SHOW THAT PATIENT IS A CHRONIC RETAINER. SHE HAS OHS/[place] AND WILL ORDER BIPAP TO BE USED AT NIGHT NEEDED PATIENT APPEARED TO BE FLUID OVERLOADED WELL WILL START ON BUMEX AND TO 3 DAYS METOLAZONE MONITOR KIDNEY FUNCTION AND ELECTROLYTES CLOSELY STRICT INPUT AND OUTPUT DAILY WEIGHTS WITH SAME? SCALE ADDITIONAL MANAGEMENT PER CLINICAL COURSE PROGNOSIS REMAIN GUARDED 10/11 ?IN REGARD TO NEUROLOGICAL SYMPTOM REPORTED BY THE ER ?ON ADMISSION PATIENT DENIES ANY WEAKNESS ?STATED THAT SHE FEELS LIKE SHE IS AT BASELINE ?NO NUMBNESS REPORTED TO THE EXTREMITIES. ? CT SCAN OF THE BRAIN DID NOT SHOW ANY SIGNIFICANT ALLERGY PER ?WILL CONTINUE TO MONITOR CLOSELY ?NEUROLOGICAL CHECK FOR THE NEXT 24 HOURS EVERY 4 HOURS ?AT THIS TIME PATIENT APPEARED TO BE SEPTIC WITH SOURCE OF INFECTION NOT COMPLETELY CLEAR ?COULD BE THE URINE. ? SHE DOES HAVE SOME REDNESS TO MULTIPLE PART OF HER BODY BUT NO ABSCESS IS PACKED IT ?WILL START ON BROAD-SPECTRUM ANTIBIOTICS FOR NOW ?WILL ALSO ADD ANTI FUNGAL THERAPY A PRECAUTION ?MONITOR CLOSELY FOR ANY SIGN OF COMPLICATIONS A SIZE C DIFF COLITIS WHILE ON ANTIBIOTIC? THERAPY ?PATIENT WILL NEED TO BE ON A BI TRIG BED MATTRESS TO DECREASE THE RISK OF SKIN BREAKDOWN ?NURSING TO TURN OR ENCOURAGE PATIENT TO TURN EVERY 2 HOURS TO DECREASE THE RISK OF DECUBITUS ULCER ?NURSING TO PROVIDE FREQUENT SKIN CARE INDICATED ?ASPIRATION? PRECAUTIONS TO BE MAINTAINED AT ALL TIME WELL ?DAILY LAB TO FOLLOW ?CONSULT PHYSICAL THERAPY AND OCCUPATIONAL THERAPY FOR IN BED RANGE? OF MOTION EXERCISES ?ADDITIONAL MANAGEMENT PER CLINICAL COURSE ?PROGNOSIS IS GUARDED DUE TO MULTIPLE COMORBIDITIES PRESENT ADMISSION Time Spent With Patient Critical Care time: I spent a total of [] minutes of critical care time on this patient's care today; this time is exclusive of procedural time. Quality VTE Deep Vein Thrombosis/Pulmonary Embolism Present on Admission: No
[2021-10-13] MEDS: INSULIN GLARGINE 100 UNIT/ML 3ML PEN 46 UNIT SUBCUT (21:11)
[2021-10-13] MEDS: ATORVASTATIN 20 MG TABLET 40 MG PO (21:13)
[2021-10-13] MEDS: SENNOSIDES 8.6 MG TABLET 17.2 MG PO (21:13)
[2021-10-13] MEDS: metOLazone 2.5 MG TABLET PO (21:20)
[2021-10-14] VITALS (12 sets, daily range): BP systolic 114–154; BP diastolic 45–78; PULSE 67–99; RESP 16–18; TEMP 36.1–36.8; O2SAT 90–95
[2021-10-14] MEDS: SODIUM CHLORIDE 0.9% FLUSH 10 ML IV ×3 (04:51→22:04)
[2021-10-14] MEDS: CEFEPIME 1 GM in SODIUM CHLORIDE 0.9% 100 ML IV ×2 (04:59→18:08)
[2021-10-14 05:38] LABS: Alanine Aminotransferase 20 IU/L (<35); Albumin Globulin Ratio 1.1 (1.0-2.8); Alkaline Phosphatase 79 U/L (38-126); Aspartate Aminotransferase 22 IU/L (14-36); BUN Creatinine Ratio 20.5 (6-22); Bilirubin Total 1.4 mg/dL (0.2-1.3); Blood Urea Nitrogen 17 mg/dL (7-17); Calcium 8.9 mg/dL (8.4-10.2); Carbon Dioxide 30 mmol/L (22-32); Chloride 98 mmol/L (98-107); Estimated Glomerular Filt Rate > 60 mL/min (>60); Globulin 3.5 g/dL (1.7-4.1); Glucose 231 mg/dL (80-110); HEMOLYSIS < 15 (0-50); Magnesium 1.3 mg/dL (1.6-2.3); Potassium 4.2 mmol/L (3.4-5.1); Sodium 138 mmol/L (137-145); Total Protein 7.5 g/dL (6.3-8.2)
[2021-10-14 05:44] LABS: Hematocrit 37.1 % (36-46); Hemoglobin 12.1 g/dL (12.0-16.0); Mean Corpuscular HGB Conc 32.6 % (30-36); Mean Corpuscular Hemoglobin 30.6 PG (26-34); Mean Corpuscular Volume 93.9 fL (80-100); Platelet Count 190 X10^3/uL (150-400); Red Blood Cell Count 3.95 X10^6/uL (4.0-5.2); Red Cell Distribution Width 14.4 % (11.6-14.8); White Blood Cell Count 18.9 X10^3/uL (4.5-11.0)
[2021-10-14] MEDS: LEVOTHYROXINE 100 MCG TABLET PO (06:19)
[2021-10-14 06:37] LABS: Add Manual Diff / Slide Review YES
[2021-10-14 07:02] LABS: Anisocytosis 1+; Neutrophils Absolute Manual 12474 /uL (3000-5900); Total Cells Counted 100
[2021-10-14] MEDS: INSULIN LISPRO 100 UNIT/ML 3ML VIAL SUBCUT ×4 (10:32→22:01)
[2021-10-14] MEDS: NYSTATIN CREAM 30 GM 1 APPLIC TOP ×2 (10:47→22:05)
[2021-10-14] MEDS: MORPHINE 2 MG/ML INJ IV (11:03)
[2021-10-14] MEDS: LACTOBACILLUS ACIDOPHILUS TABLET 1 EACH PO ×3 (11:04→18:03)
[2021-10-14] MEDS: APIXABAN 5 MG TABLET PO ×2 (11:05→21:58)
[2021-10-14] MEDS: DULOXETINE 30 MG CAPSULE 90 MG PO (11:05)
[2021-10-14] MEDS: FLUCONAZOLE 100 MG TABLET 200 MG PO (11:05)
[2021-10-14] MEDS: lisinopriL 20 MG TABLET PO ×2 (11:05→21:58)
[2021-10-14] MEDS: FAMOTIDINE 20 MG TABLET PO ×2 (11:05→21:58)
[2021-10-14] MEDS: GABAPENTIN 600 MG TABLET PO ×3 (11:05→21:57)
[2021-10-14] MEDS: POTASSIUM CHLORIDE 10 MEQ TAB PO (11:05)
[2021-10-14] MEDS: BUMETANIDE 1 MG TABLET PO (11:05)
[2021-10-14] MEDS: ARIPiprazole 10 MG TABLET 2.5 MG PO (11:06)
[2021-10-14] MEDS: DOXYCYCLINE HYCLATE 100 MG TABLET PO (11:06)
[2021-10-14] MEDS: polyethylene glycoL 3350 17 GM POWD.PACK PO ×2 (11:06→21:56)
[2021-10-14] MEDS: dilTIAZem CD 240 MG CAP PO (11:07)
[2021-10-14] MEDS: buPROPion SR 100 MG TAB PO ×2 (11:07→21:57)
[2021-10-14] MEDS: ASPIRIN EC 81 MG TABLET PO (11:07)
[2021-10-14] MEDS: INSULIN GLARGINE 100 UNIT/ML 3ML PEN 46 UNIT SUBCUT ×2 (11:09→22:02)
[2021-10-14] MEDS: MAGNESIUM CHLORIDE 64 MG TABLET 128 MG PO ×2 (12:38→18:30)
[2021-10-14] MEDS: OXYCODONE IR 5 MG TABLET PO (12:41)
--- NOTE | 2021-10-14 17:45 | PM.PN.1 ---
Subjective Subjective Date Patient Seen: 10/14/21 Interval history: BRIEF HPI THIS IS A MORBIDLY OBESE 81 YEAR OLD FEMALE.? PATIENT HAS BEEN ADMITTED WITH SYMPTOMS WHICH WAS SUSPICIOUS FOR POSSIBLE TIA/CVA.? CVA HAS BEEN RULED OUT.? TIA COOL HAVE BEEN A POSSIBILITY PATIENT IS ALSO BEING TREATED FOR SOME DERMATITIS? OF THE LEFT HIP.? NO OPEN LESION; IMPROVED UTI IS ALSO SUSPECTED WITH SIGNIFICANT PYURIA NOTED ON URINALYSIS ON ADMISSION. PRIOR CULTURE NOTED WITH COLI, PROTEUS TODAY NO SIGNIFICANT ISSUES REPORTED BY NURSING OVERNIGHT PATIENT WAS ENQUIRING ABOUT WHEN SHE CAN LEAVE THE HOSPITAL.? NO VOMITING NO CHEST PAIN.? NO CHEST PRESSURE Exam Vital Signs (past 8 hours): - 10/14/21 12:05 10/14/21 13:00 10/14/21 16:55 Temperature 97.2 F L Pulse Rate 75 Respiratory Rate 16 Blood Pressure 152/78 H Pulse Oximetry 90 L 92 92 Oxygen Delivery Method Nasal Cannula Oxygen Flow Rate 2 Narrative Exam Narrative: NO ACUTE DISTRESS.? PATIENT IS ALERT ORIENTED X2.? MORBIDLY OBESE. HEAD ATRAUMATIC NORMOCEPHALIC NECK : ? NO LYMPHADENOPATHY.? SOME REDNESS NOTED ON THE RIGHT SIDE OF THE NECK.? NONTENDER TO TOUCH.? NO PALPATING MASS. EYE:? EOMI, PERRLA, NORMAL CONJUNCTIVA; NO JAUNDICE CHEST:? REGULAR RATE.? ? NO RUBS.? PMI IS NON DISPLACED.? NO MURMURS; NORMAL S1-S2 PULMONARY:? ? DECREASED BREATH SOUND AT THE BASES.? BIBASILAR CRACKLES.? NO RALES.? NO RHONCHI. ABDOMEN:? OBESE BUT? SOFT.? NONTENDER.? ? BOWEL SOUNDS ARE PRESENT IN ALL 4 QUADRANTS.? NO MASS. NO GUARDING.? NO REBOUND TENDERNESS EXTREMITIES: CHRONIC DEFORMITIES NOTED TO BILATERAL LOWER EXTREMITIES.? EDEMA AT 2+ NONPITTING BILATERALLY ALSO APPRECIATED.? PULSES ARE APPRECIATED BILATERALLY AND EQUAL NEURO:? CRANIAL NERVES 2-12 GROSSLY INTACT. NO FOCAL NEUROLOGICAL DEFICIT NOTED. CHRONIC DEFORMITIES.? ? CHRONIC WEAKNESS WITH STRENGTH BEING 4/5 ALSO AND APPRECIATED TO BILATERAL LOWER AND UPPER EXTREMITIES. MSK:? NORMAL RANGE OF MOTION FOR AGE.? NO JOINT EFFUSION. POOR MUSCULATURE.? DEFORMITIES SKIN:? FAIR SKIN TURGOR.? SKIN FOLDS NOTED WITH TIM. STAGE I DECUBITUS ULCER. COCCYX AREA :? NORMAL EXTERNAL GENITALIA.? CRAMER CATHETER IN PLACE WITH YELLOWISH? URINE PSYCH : ? CALM.? OPERATIVE. Objective Labs Result Diagrams: 10/14/21 05:00 10/14/21 05:00 Labs: Laboratory Results - last 24 hr 10/14/21 10/14/21 05:00 05:00 WBC 18.9 H RBC 3.95 L Hgb 12.1 Hct 37.1 MCV 93.9 MCH 30.6 MCHC 32.6 RDW 14.4 Plt Count 190 Neut % (Auto) Not Reportable Lymph % (Auto) Not Reportable [place] % (Auto) Not Reportable Eos % (Auto) Not Reportable Baso % (Auto) Not Reportable Lymph # (Auto) Not Reportable [place] # (Auto) Not Reportable Baso # (Auto) Not Reportable Total Counted 100 Seg Neutrophils % 66.0 Lymphocytes % (Manual) 6.0 L Monocytes % (Manual) 28.0 H Neutrophils # (Manual) 84202 H RBC Morphology See below Anisocytosis 1+ H Sodium 138 Potassium 4.2 Chloride 98 Carbon Dioxide 30 BUN 17 Creatinine 0.83 Estimated GFR > 60 BUN/Creatinine Ratio 20.5 Glucose 231 H Calcium 8.9 Phosphorus 3.0 Magnesium 1.3 L Total Bilirubin 1.4 H AST 22 ALT 20 Alkaline Phosphatase 79 Total Protein 7.5 Albumin 4.0 Globulin 3.5 Albumin/Globulin Ratio 1.1 PFSH Medical History Acute on chronic respiratory failure with hypoxia and hypercapnia Anemia Atherosclerotic heart disease of [place] coronary artery without angina pectoris Atrial fibrillation Chronic kidney disease, stage 3 Chronic pain syndrome Diabetes Gastroesophageal reflux disease Hereditary and idiopathic neuropathy, unspecified Hyperlipidemia Hypertension Hypertensive chronic kidney disease with stage 1 through stage 4 chronic kidney disease, or unspecified chronic kidney disease Hypothyroidism Hypoventilation associated with obesity syndrome Insomnia 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 SYMPTOMS RESOLVED.? MONITOR CLOSELY ?POSSIBLE CELLULITIS TO LEFT THIGH ; RULED OUT.? ? MILD DERMATITIS SUSPECTED ?LEUKOCYTOSIS.? LIKELY DUE TO INFECTIOUS? PROCESS.? SOURCE IS LIKELY URINE ?FEVER.? LIKELY ASSOCIATED WITH INFECTIOUS PROCESS.? RESOLVED ?POSSIBLE SEPSIS.? PRESENT ON ARRIVAL.? SOURCE? COULD BE THE URINE.? LIKELY GRAM-NEGATIVE BACTERIA ?LACTIC ACIDOSIS.? LIKELY ASSOCIATED WITH SEPSIS.? RESOLVED ?ACUTE PYELONEPHRITIS.? ? GRAM-NEGATIVE BACTERIA SUSPECTED.? ON ANTIBIOTICS ?MORBID OBESITY.? COUNSELING TO BE GIVEN ONCE APPROPRIATE ?ELIQUIS COAGULOPATHY.? MONITOR CLOSELY ?ATRIAL FIBRILLATION PER HISTORY.? ON TELE AT ALL TIMES ?DIABETES TYPE 2 PER HISTORY ?CHRONIC? RESPIRATORY FAILURE PER HISTORY ?HYPERTENSION PER HISTORY ?HYPERLIPIDEMIA PER HISTORY ?BED- CONFINEMENT STATE PER HX CHRONIC HEART FAILURE WITH PRESERVED EJECTION FRACTION.? NO SIGN OF ACUTE EXACERBATION HYPO MAGNESEMIA.? TO BE REPLACED BY PHARMACY TEAM CHRONIC STAGE I DECUBITUS ULCER. PRESENT ON ARRIVAL.. MEPILEX DAILY ?PLAN PATIENT WBC LEVEL REMAINED ELEVATED DESPITE BEING ON ANTIBIOTIC BLOOD CULTURES REMAIN NEGATIVE. IT SEEMS, DESPITE SIGNIFICANT PYURIA NOTED ON URINALYSIS ON ADMISSION, CULTURES WERE NOT SENT WILL REPEAT URINALYSIS TODAY WELL URINE CULTURES. PATIENT ALSO WILL BE CONTINUED ON ANTIFUNGAL THERAPY FOR NOW. FURTHERMORE A COMPLETE HEAD TO TOE ASSESSMENT DONE TODAY. NURSING PRESENT DURING THE ASSESSMENT. NO SUSPICIOUS LESIONS APPRECIATED DURING THE ASSESSMENT DD URINARY TRACT CONTINUE TO BE SUSPECTED THE SOURCE OF THE INFECTION CONTINUE TO FOLLOW CLOSELY. DAILY LAB ORDERED PLAN TO DISCHARGE TO LONG-TERM FACILITY ONCE CLINICALLY STABLE 10/13 IN REGARD TO HER HEART FAILURE. THIS IS CHRONIC NO SIGN OF ACUTE EXACERBATION/DECOMPENSATION SUSPECTED AT THIS TIME. PATIENT APPEARS TO BE RESPONDING WELL IN REGARD TO DIURETIC THERAPY. SHE DOES HAVE SOME LOWER EXTREMITY EDEMA BUT THIS COULD BE DUE TO NONCOMPLIANCE WITH DIURETIC THERAPY. KIDNEY FUNCTIONS HOLDING FAIRLY WELL WHILE ON DIURETIC. NO SIGNIFICANT ELECTROLYTES ABNORMALITY APPRECIATED. CONTINUE TO MONITOR INPUT AND OUTPUT CLOSELY NURSING TO WEIGH PATIENT DAILY AND REPORT ANY SIGNIFICANT WEIGHT GAIN. FLUID RESTRICTION IN PLACE AND TO BE FOLLOWED ORDERED. PATIENT APPEARED TO BE CLINICALLY IMPROVED. HER WHITE BLOOD CELL COUNT REMAINED ELEVATED BUT IMPROVED OVERNIGHT CONTINUE CURRENT ANTIBIOTICS FOR NOW AGAIN, ANTIBIOTICS TREATMENT IS TAILORED USING LAST CULTURE. WILL CONSIDER REPEATING ALL CULTURES IF INDICATED CLINICALLY BLOOD CULTURE REMAINS NEGATIVE TO DATE. BLOOD SUGAR HAS BEEN REMAINING ABOVE DUE TO 100S WILL INCREASE MORNING DOSE OF LANTUS TODAY FOR STRICTER BLOOD SUGAR CONTROL ADDITIONAL MANAGEMENT PER CLINICAL COURSE 10/12 PATIENT LABS IMPROVED OVERNIGHT WHILE ON ANTIBIOTICS I SUSPECT THE SOURCE OF HER INFECTION IS LIKELY THE URINE WILL CONTINUE CEFEPIME FOR NOW DOXY WILL BE CONTINUED WELL FOR ANOTHER 24-48 HOURS WILL DISCONTINUE VANCOMYCIN CONTINUE DIFLUCAN HOWEVER. CONTINUE TO FOLLOW DAILY CBC ADJUST? ANTIBIOTIC THERAPY PER CLINICAL COURSE MONITOR CLOSELY FOR SIGN OF DIARRHEA WHICH COULD INDICATE C DIFF COLITIS NO INDICATIONS FOR CELLULITIS AT THIS TIME. REDNESS NOTED ON ADMISSION HAS SIGNIFICANTLY IMPROVED THIS WAS LIKELY DERMATITIS OF UNCLEAR CAUSE. PATIENT HAS NO RESIDUAL NEURO DEFICIT AT THIS TIME. HER SYMPTOMS ON ADMISSION COULD HAVE BEEN A TIA. WILL MONITOR CLOSELY ON IT FOR NOW. ABG OVERNIGHT APPEAR TO SHOW THAT PATIENT IS A CHRONIC RETAINER. SHE HAS OHS/[place] AND WILL ORDER BIPAP TO BE USED AT NIGHT NEEDED PATIENT APPEARED TO BE FLUID OVERLOADED WELL WILL START ON BUMEX AND TO 3 DAYS METOLAZONE MONITOR KIDNEY FUNCTION AND ELECTROLYTES CLOSELY STRICT INPUT AND OUTPUT DAILY WEIGHTS WITH SAME? SCALE ADDITIONAL MANAGEMENT PER CLINICAL COURSE PROGNOSIS REMAIN GUARDED 10/11 ?IN REGARD TO NEUROLOGICAL SYMPTOM REPORTED BY THE ER ?ON ADMISSION PATIENT DENIES ANY WEAKNESS ?STATED THAT SHE FEELS LIKE SHE IS AT BASELINE ?NO NUMBNESS REPORTED TO THE EXTREMITIES. ? CT SCAN OF THE BRAIN DID NOT SHOW ANY SIGNIFICANT ALLERGY PER ?WILL CONTINUE TO MONITOR CLOSELY ?NEUROLOGICAL CHECK FOR THE NEXT 24 HOURS EVERY 4 HOURS ?AT THIS TIME PATIENT APPEARED TO BE SEPTIC WITH SOURCE OF INFECTION NOT COMPLETELY CLEAR ?COULD BE THE URINE. ? SHE DOES HAVE SOME REDNESS TO MULTIPLE PART OF HER BODY BUT NO ABSCESS IS PACKED IT ?WILL START ON BROAD-SPECTRUM ANTIBIOTICS FOR NOW ?WILL ALSO ADD ANTI FUNGAL THERAPY A PRECAUTION ?MONITOR CLOSELY FOR ANY SIGN OF COMPLICATIONS A SIZE C DIFF COLITIS WHILE ON ANTIBIOTIC? THERAPY ?PATIENT WILL NEED TO BE ON A BI TRIG BED MATTRESS TO DECREASE THE RISK OF SKIN BREAKDOWN ?NURSING TO TURN OR ENCOURAGE PATIENT TO TURN EVERY 2 HOURS TO DECREASE THE RISK OF DECUBITUS ULCER ?NURSING TO PROVIDE FREQUENT SKIN CARE INDICATED ?ASPIRATION? PRECAUTIONS TO BE MAINTAINED AT ALL TIME WELL ?DAILY LAB TO FOLLOW ?CONSULT PHYSICAL THERAPY AND OCCUPATIONAL THERAPY FOR IN BED RANGE? OF MOTION EXERCISES ?ADDITIONAL MANAGEMENT PER CLINICAL COURSE ?PROGNOSIS IS GUARDED DUE TO MULTIPLE COMORBIDITIES PRESENT ADMISSION Time Spent With Patient Critical Care time: I spent a total of [] minutes of critical care time on this patient's care today; this time is exclusive of procedural time. Quality VTE Deep Vein Thrombosis/Pulmonary Embolism Present on Admission: No
[2021-10-14] MEDS: SENNOSIDES 8.6 MG TABLET 17.2 MG PO (21:57)
[2021-10-14] MEDS: ATORVASTATIN 20 MG TABLET 40 MG PO (21:57)
[2021-10-15] VITALS (14 sets, daily range): BP systolic 143–169; BP diastolic 68–90; PULSE 78–83; RESP 18–22; TEMP 36.1–37.2; O2SAT 91–94
[2021-10-15 03:43] LABS: Appearance Urine UA CLEAR; Bilirubin Urine UA NEGATIVE (NEGATIVE); Color Urine UA YELLOW; Glucose Urine UA TRACE g/dL (Negative); Ketones Urine UA NEGATIVE (NEGATIVE); Leukocyte Esterase Urine UA NEGATIVE (NEGATIVE); Nitrite Urine UA NEGATIVE (Negative); Occult Blood Urine UA 2+ (Negative); Protein Urine UA 1+ (Negative); Urobilinogen Urine UA 0.2 E.U./dL (0.2)
[2021-10-15 03:57] LABS: RBC Urine 1-5/HPF (0-5/HPF); Squamous Epithelial Cell Urine 1-5 /HPF (0-5/HPF); WBC Urine 1-5/HPF (0-5/HPF)
[2021-10-15 03:58] LABS: Culture Indicated Urine Specimen Cultured
[2021-10-15] MEDS: CEFEPIME 1 GM in SODIUM CHLORIDE 0.9% 100 ML IV (04:25)
[2021-10-15 04:43] LABS: Bacteria Urine None Seen
[2021-10-15] MEDS: SODIUM CHLORIDE 0.9% 250 ML 21 ML IV (04:55)
[2021-10-15 05:23] LABS: Magnesium 1.5 mg/dL (1.6-2.3); Phosphorous 3.2 mg/dL (2.8-4.1)
[2021-10-15] MEDS: LEVOTHYROXINE 100 MCG TABLET PO (06:09)
--- NOTE | 2021-10-15 06:42 | PC.NURSE ---
Pt appears to be lethargic most of the shift but opens her eyes and follows command when spoken to. Pt moaning on and off denied pain. Blood sugars have been trending up. Last BS was 299. UA was send to the lab this am, UA being culture. Nystatin cream switched to powder due to increase moisture around abdominal folds/groin.
[2021-10-15] MEDS: INSULIN LISPRO 100 UNIT/ML 3ML VIAL SUBCUT ×4 (07:52→20:56)
[2021-10-15] MEDS: INSULIN GLARGINE 100 UNIT/ML 3ML PEN 46 UNIT SUBCUT ×2 (07:53→20:55)
[2021-10-15] MEDS: LACTOBACILLUS ACIDOPHILUS TABLET 1 EACH PO ×3 (09:11→16:43)
[2021-10-15] MEDS: DULOXETINE 30 MG CAPSULE 90 MG PO (09:48)
[2021-10-15] MEDS: ASPIRIN EC 81 MG TABLET PO (09:48)
[2021-10-15] MEDS: FAMOTIDINE 20 MG TABLET PO ×2 (09:48→20:59)
[2021-10-15] MEDS: BUMETANIDE 1 MG TABLET PO (09:48)
[2021-10-15] MEDS: FLUCONAZOLE 100 MG TABLET 200 MG PO ×2 (09:49→09:57)
[2021-10-15] MEDS: lisinopriL 20 MG TABLET PO ×2 (09:49→20:59)
[2021-10-15] MEDS: GABAPENTIN 600 MG TABLET PO ×3 (09:49→20:59)
[2021-10-15] MEDS: POTASSIUM CHLORIDE 10 MEQ TAB PO (09:49)
[2021-10-15] MEDS: dilTIAZem CD 240 MG CAP PO (09:49)
[2021-10-15] MEDS: polyethylene glycoL 3350 17 GM POWD.PACK PO ×2 (09:50→21:00)
[2021-10-15] MEDS: APIXABAN 5 MG TABLET PO ×2 (09:52→21:00)
[2021-10-15] MEDS: ARIPiprazole 10 MG TABLET 2.5 MG PO (09:52)
[2021-10-15] MEDS: buPROPion SR 100 MG TAB PO ×2 (09:52→20:59)
[2021-10-15] MEDS: SODIUM CHLORIDE 0.9% FLUSH 10 ML IV ×2 (09:58→20:58)
--- NOTE | 2021-10-15 10:48 | CM.DPC ---
DCP Cont: Spoke to Zaira in admissions at [facility]. She was stating, if patient is ready, can pick her up at 1330. Discussed during team rounds, hospitalist indicated, patient not medically ready, may need to go on BIPAP. Patient also was admitted for UTI. Updated Zaira at [facility] that patient is not yet medically ready for discharge today. P: DCP to continue to follow closely. Plan is for patient to go to [facility] when medically stable. Did go ahead and complete PASSR. Justine Issa RN/Skip Operator
[2021-10-15] MEDS: MINERAL OIL 1 EACH ENEMA PR (11:00)
[2021-10-15] MEDS: MAGNESIUM CHLORIDE 64 MG TABLET 128 MG PO (11:11)
[2021-10-15] MEDS: NYSTATIN POWDER 15GM 1 APPLIC TOP (11:12)
--- NOTE | 2021-10-15 15:45 | PC.NURSE ---
Addendum entered by Isabel Wheeler R.N. 10/15/21 16:12: notified of no bm x 6 days. requested order for fleets mineral oil enema. order received. enema given earlier than time of this chart note. call to [facility] to confirm the last BM she had was this past saturday. awaiting confirmation. BT remain hypoactive & very hard stool felt w/ digital assessment. callback from [facility]: last BM 10/11/21. she used the BSC via [facility]. she has a BM q 2-3 days. updated w/ above info. Original Note: late entry charting for 10/14/21: patient is drowsy, oriented x 2-3. wakens easily to verbal stimuli. 2-3pa ADL and mobility assistance. has tilt bed to assist w/ mobility/turning. patient tends to lean to her left. needs extensive help w/ bed mobility. no s/sx of CVA, no deficits. LE's have little to no movement, she is able to wiggle her toes. daughter Margarita here earlier to visit, states patient has been residing for the past [address] [facility] in [place]. anticipate d/c back to [facility] per daughter. states when mom has a UTI, she gets really out of it and lethargic. strong hx of depression, and immobility. u/a collected and sent by next shift. day shift charting for 10/15/21: patient is drowsy, diaphoretic and appears to be uncomfortable. BT are hypoactive in all quads. patient reports last BM on saturday. attempted bedpan w/ 3pa, patient unable to tolerate.
--- NOTE | 2021-10-15 16:17 | PM.PN.1 ---
Subjective Subjective Date Patient Seen: 10/15/21 Interval history: BRIEF HPI THIS IS A MORBIDLY OBESE 81 YEAR OLD FEMALE.? PATIENT HAS BEEN ADMITTED WITH SYMPTOMS WHICH WAS SUSPICIOUS FOR POSSIBLE TIA/CVA.? CVA HAS BEEN RULED OUT.? TIA COOL HAVE BEEN A POSSIBILITY PATIENT IS ALSO BEING TREATED FOR SOME DERMATITIS? OF THE LEFT HIP.? NO OPEN LESION; IMPROVED UTI IS ALSO SUSPECTED WITH SIGNIFICANT PYURIA NOTED ON URINALYSIS ON ADMISSION. PRIOR CULTURE NOTED WITH COLI, PROTEUS TODAY ? NO SIGNIFICANT ISSUES REPORTED BY NURSING OVERNIGHT HOWEVER NURSING DID REPORT THIS MORNING THAT PATIENT HAS NOT HAVE A BOWEL MOVEMENT FOR LAST FEW DAYS REQUESTED AN ENEMA HOWEVER PATIENT DENIES ANY NAUSEA OR VOMITING NO ABDOMINAL PAIN NO CHEST PAIN.? NO CHEST PRESSURE Exam Vital Signs (past 8 hours): - 10/15/21 08:25 10/15/21 09:00 10/15/21 12:16 Temperature 97.1 F L 97.5 F L Pulse Rate 78 83 Respiratory Rate 22 18 Blood Pressure 160/68 H 169/90 H Pulse Oximetry 92 93 94 10/15/21 13:00 10/15/21 16:13 Temperature 98.9 F Pulse Rate 78 Respiratory Rate 20 Blood Pressure 143/74 H Pulse Oximetry 94 92 Oxygen Delivery Method Nasal Cannula Oxygen Flow Rate 2 Narrative Exam Narrative: NO ACUTE DISTRESS.? PATIENT IS ALERT ORIENTED X2.? MORBIDLY OBESE. HEAD ATRAUMATIC NORMOCEPHALIC NECK : ? NO LYMPHADENOPATHY.? SOME REDNESS NOTED ON THE RIGHT SIDE OF THE NECK.? NONTENDER TO TOUCH.? NO PALPATING MASS. EYE:? EOMI, PERRLA, NORMAL CONJUNCTIVA; NO JAUNDICE CHEST:? REGULAR RATE.? ? NO RUBS.? PMI IS NON DISPLACED.? NO MURMURS; NORMAL S1-S2 PULMONARY:? ? DECREASED BREATH SOUND AT THE BASES.? BIBASILAR CRACKLES.? NO RALES.? NO RHONCHI. ABDOMEN:? OBESE BUT? SOFT.? NONTENDER.? ? BOWEL SOUNDS ARE PRESENT IN ALL 4 QUADRANTS.? NO MASS. NO GUARDING.? NO REBOUND TENDERNESS EXTREMITIES: CHRONIC DEFORMITIES NOTED TO BILATERAL LOWER EXTREMITIES.? EDEMA AT 2+ NONPITTING BILATERALLY ALSO APPRECIATED.? PULSES ARE APPRECIATED BILATERALLY AND EQUAL NEURO:? CRANIAL NERVES 2-12 GROSSLY INTACT. NO FOCAL NEUROLOGICAL DEFICIT NOTED. CHRONIC DEFORMITIES.? ? CHRONIC WEAKNESS WITH STRENGTH BEING 4/5 ALSO AND APPRECIATED TO BILATERAL LOWER AND UPPER EXTREMITIES. MSK:? NORMAL RANGE OF MOTION FOR AGE.? NO JOINT EFFUSION. POOR MUSCULATURE.? DEFORMITIES SKIN:? FAIR SKIN TURGOR.? SKIN FOLDS NOTED WITH TIM. ? STAGE I DECUBITUS ULCER.? COCCYX AREA :? NORMAL EXTERNAL GENITALIA.? CRAMER CATHETER IN PLACE WITH YELLOWISH? URINE PSYCH : ? CALM.? OPERATIVE. Objective Labs Result Diagrams: 10/14/21 05:00 10/14/21 05:00 Labs: Laboratory Results - last 24 hr 10/15/21 10/15/21 03:15 04:32 Phosphorus 3.2 Magnesium 1.5 L Urine Color Yellow Urine Appearance Clear Urine pH 5.0 Ur Specific [place] 1.020 Urine Protein 1+ H Urine Glucose (UA) Trace H Urine Ketones Negative Urine Occult Blood 2+ H Urine Nitrate Negative Urine Bilirubin Negative Urine Urobilinogen 0.2 Ur Leukocyte Esterase Negative Urine RBC 1-5/hpf Urine WBC 1-5/hpf Ur Squamous Epith Cells 1-5 /hpf D Urine Bacteria None seen Urine Yeast 1-5/hpf H Ur Culture Indicated? Specimen cultured [facility] Medical History Acute on chronic respiratory failure with hypoxia and hypercapnia Anemia Atherosclerotic heart disease of [place] coronary artery without angina pectoris Atrial fibrillation Chronic kidney disease, stage 3 Chronic pain syndrome Diabetes Gastroesophageal reflux disease Hereditary and idiopathic neuropathy, unspecified Hyperlipidemia Hypertension Hypertensive chronic kidney disease with stage 1 through stage 4 chronic kidney disease, or unspecified chronic kidney disease Hypothyroidism Hypoventilation associated with obesity syndrome Insomnia 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 SYMPTOMS RESOLVED.? MONITOR CLOSELY ?POSSIBLE CELLULITIS TO LEFT THIGH ; RULED OUT.? ? MILD DERMATITIS SUSPECTED ?LEUKOCYTOSIS.? LIKELY DUE TO INFECTIOUS? PROCESS.? SOURCE IS LIKELY URINE ?FEVER.? LIKELY ASSOCIATED WITH INFECTIOUS PROCESS.? RESOLVED ?POSSIBLE SEPSIS.? PRESENT ON ARRIVAL.? SOURCE? COULD BE THE URINE.? LIKELY GRAM-NEGATIVE BACTERIA ?LACTIC ACIDOSIS.? LIKELY ASSOCIATED WITH SEPSIS.? RESOLVED ?ACUTE PYELONEPHRITIS.? ? GRAM-NEGATIVE BACTERIA SUSPECTED.? ON ANTIBIOTICS ?MORBID OBESITY.? COUNSELING TO BE GIVEN ONCE APPROPRIATE ?ELIQUIS COAGULOPATHY.? MONITOR CLOSELY ?ATRIAL FIBRILLATION PER HISTORY.? ON TELE AT ALL TIMES ?DIABETES TYPE 2 PER HISTORY ?CHRONIC? RESPIRATORY FAILURE PER HISTORY ?HYPERTENSION PER HISTORY ?HYPERLIPIDEMIA PER HISTORY ?BED- CONFINEMENT STATE PER HX CHRONIC HEART FAILURE WITH PRESERVED EJECTION FRACTION.? NO SIGN OF ACUTE EXACERBATION HYPO MAGNESEMIA.? TO BE REPLACED BY PHARMACY TEAM CHRONIC? STAGE I DECUBITUS ULCER.? PRESENT ON ARRIVAL..? MEPILEX DAILY CONSTIPATION. NEEDED ORDERS IN CHART ?PLAN URINALYSIS REPEATED YESTERDAY AND WAS FAIRLY UNREMARKABLE WILL REPEAT CHEST X-RAY TODAY IN THE MEANWHILE WILL ALSO DISCONTINUE ANTIBIOTICS UNTIL A SOURCE OF INFECTION COULD BE IDENTIFIED WILL CONTINUE TO FOLLOW LAB CLOSELY PRIOR CULTURES WITHOUT SIGNIFICANT GROWTH HOWEVER REPEATED URINE CULTURE IS PENDING HER ELEVATED WHITE BLOOD CELL COUNT COULD BE RELATED TO REACTIVE LEUKOCYTOSIS SECONDARY TO INFLAMMATORY PROCESS THERE IS NO OBVIOUS SIGNS OF ONGOING INFECTIOUS PROCESS. HOWEVER WILL CONTINUE DIFLUCAN COMPLETE A 7 DAY COURSE ADDITIONAL MANAGEMENT PER CLINICAL COURSE DISCHARGE ONCE CLINICALLY STABLE 10/14 ?PATIENT WBC LEVEL REMAINED ELEVATED DESPITE BEING ON ANTIBIOTIC ?BLOOD CULTURES REMAIN NEGATIVE. ? IT SEEMS, DESPITE SIGNIFICANT PYURIA NOTED ON URINALYSIS ON ADMISSION, CULTURES WERE NOT SENT ?WILL? REPEAT URINALYSIS TODAY WELL URINE CULTURES. ? PATIENT ALSO WILL BE CONTINUED ON ANTIFUNGAL THERAPY FOR NOW. ? FURTHERMORE A? COMPLETE HEAD TO TOE? ASSESSMENT DONE TODAY. ? NURSING PRESENT DURING THE ASSESSMENT. ? NO ? SUSPICIOUS LESIONS APPRECIATED DURING THE ASSESSMENT ? DD URINARY TRACT CONTINUE TO BE SUSPECTED THE SOURCE OF THE INFECTION ?CONTINUE TO FOLLOW CLOSELY. ?DAILY LAB ORDERED ?PLAN TO DISCHARGE TO NURSING HOME FACILITY ONCE CLINICALLY STABLE 10/13 IN REGARD TO HER HEART FAILURE. THIS IS CHRONIC NO SIGN OF ACUTE EXACERBATION/DECOMPENSATION SUSPECTED AT THIS TIME. PATIENT APPEARS TO BE RESPONDING WELL IN REGARD TO DIURETIC THERAPY. SHE DOES HAVE SOME LOWER EXTREMITY EDEMA BUT THIS COULD BE DUE TO NONCOMPLIANCE WITH DIURETIC THERAPY. KIDNEY FUNCTIONS HOLDING FAIRLY WELL WHILE ON DIURETIC. NO SIGNIFICANT ELECTROLYTES ABNORMALITY APPRECIATED. CONTINUE TO MONITOR INPUT AND OUTPUT CLOSELY NURSING TO WEIGH PATIENT DAILY AND REPORT ANY SIGNIFICANT WEIGHT GAIN. FLUID RESTRICTION IN PLACE AND TO BE FOLLOWED ORDERED. PATIENT APPEARED TO BE CLINICALLY IMPROVED. HER WHITE BLOOD CELL COUNT REMAINED ELEVATED BUT IMPROVED OVERNIGHT CONTINUE CURRENT ANTIBIOTICS FOR NOW AGAIN, ANTIBIOTICS TREATMENT IS TAILORED USING LAST CULTURE. WILL CONSIDER REPEATING ALL CULTURES IF INDICATED CLINICALLY BLOOD CULTURE REMAINS NEGATIVE TO DATE. BLOOD SUGAR HAS BEEN REMAINING ABOVE DUE TO 100S WILL INCREASE MORNING DOSE OF LANTUS TODAY FOR STRICTER BLOOD SUGAR CONTROL ADDITIONAL MANAGEMENT PER CLINICAL COURSE 10/12 PATIENT LABS IMPROVED OVERNIGHT WHILE ON ANTIBIOTICS I SUSPECT THE SOURCE OF HER INFECTION IS LIKELY THE URINE WILL CONTINUE CEFEPIME FOR NOW DOXY WILL BE CONTINUED WELL FOR ANOTHER 24-48 HOURS WILL DISCONTINUE VANCOMYCIN CONTINUE DIFLUCAN HOWEVER. CONTINUE TO FOLLOW DAILY CBC ADJUST? ANTIBIOTIC THERAPY PER CLINICAL COURSE MONITOR CLOSELY FOR SIGN OF DIARRHEA WHICH COULD INDICATE C DIFF COLITIS NO INDICATIONS FOR CELLULITIS AT THIS TIME. REDNESS NOTED ON ADMISSION HAS SIGNIFICANTLY IMPROVED THIS WAS LIKELY DERMATITIS OF UNCLEAR CAUSE. PATIENT HAS NO RESIDUAL NEURO DEFICIT AT THIS TIME. HER SYMPTOMS ON ADMISSION COULD HAVE BEEN A TIA. WILL MONITOR CLOSELY ON IT FOR NOW. ABG OVERNIGHT APPEAR TO SHOW THAT PATIENT IS A CHRONIC RETAINER. SHE HAS OHS/[place] AND WILL ORDER BIPAP TO BE USED AT NIGHT NEEDED PATIENT APPEARED TO BE FLUID OVERLOADED WELL WILL START ON BUMEX AND TO 3 DAYS METOLAZONE MONITOR KIDNEY FUNCTION AND ELECTROLYTES CLOSELY STRICT INPUT AND OUTPUT DAILY WEIGHTS WITH SAME? SCALE ADDITIONAL MANAGEMENT PER CLINICAL COURSE PROGNOSIS REMAIN GUARDED 10/11 ?IN REGARD TO NEUROLOGICAL SYMPTOM REPORTED BY THE ER ?ON ADMISSION PATIENT DENIES ANY WEAKNESS ?STATED THAT SHE FEELS LIKE SHE IS AT BASELINE ?NO NUMBNESS REPORTED TO THE EXTREMITIES. ? CT SCAN OF THE BRAIN DID NOT SHOW ANY SIGNIFICANT ALLERGY PER ?WILL CONTINUE TO MONITOR CLOSELY ?NEUROLOGICAL CHECK FOR THE NEXT 24 HOURS EVERY 4 HOURS ?AT THIS TIME PATIENT APPEARED TO BE SEPTIC WITH SOURCE OF INFECTION NOT COMPLETELY CLEAR ?COULD BE THE URINE. ? SHE DOES HAVE SOME REDNESS TO MULTIPLE PART OF HER BODY BUT NO ABSCESS IS PACKED IT ?WILL START ON BROAD-SPECTRUM ANTIBIOTICS FOR NOW ?WILL ALSO ADD ANTI FUNGAL THERAPY A PRECAUTION ?MONITOR CLOSELY FOR ANY SIGN OF COMPLICATIONS A SIZE C DIFF COLITIS WHILE ON ANTIBIOTIC? THERAPY ?PATIENT WILL NEED TO BE ON A BI TRIG BED MATTRESS TO DECREASE THE RISK OF SKIN BREAKDOWN ?NURSING TO TURN OR ENCOURAGE PATIENT TO TURN EVERY 2 HOURS TO DECREASE THE RISK OF DECUBITUS ULCER ?NURSING TO PROVIDE FREQUENT SKIN CARE INDICATED ?ASPIRATION? PRECAUTIONS TO BE MAINTAINED AT ALL TIME WELL ?DAILY LAB TO FOLLOW ?CONSULT PHYSICAL THERAPY AND OCCUPATIONAL THERAPY FOR IN BED RANGE? OF MOTION EXERCISES ?ADDITIONAL MANAGEMENT PER CLINICAL COURSE ?PROGNOSIS IS GUARDED DUE TO MULTIPLE COMORBIDITIES PRESENT ADMISSION Time Spent With Patient Critical Care time: I spent a total of [] minutes of critical care time on this patient's care today; this time is exclusive of procedural time. Quality VTE Deep Vein Thrombosis/Pulmonary Embolism Present on Admission: No
--- NOTE | 2021-10-15 16:29 | DI.RAD.S_ITS ---
PROCEDURE: XR CHEST 1V INDICATIONS: F/U PULM EDEMA TECHNIQUE: One view of the chest was acquired. COMPARISON: [facility], CR, XR CHEST 1V, 10/12/2021, 3:22. FINDINGS: Surgical changes and devices: None. Lungs and pleura: Lungs are clear. No pleural effusions or pneumothorax. Mediastinum: Cardiomegaly and mild vascular congestion noted. Bones and chest wall: No suspicious bony lesions. Overlying soft tissues appear unremarkable. IMPRESSION: Cardiomegaly mild vascular congestion, stable from Prior Approved by: Paul Vasques M.D. on 10/15/2021 at 16:10
[2021-10-15] MEDS: LACTULOSE 20 GM/30 ML SOLUTION PO (16:43)
[2021-10-15] MEDS: ATORVASTATIN 20 MG TABLET 40 MG PO (21:00)
[2021-10-15] MEDS: SENNOSIDES 8.6 MG TABLET 17.2 MG PO (21:00)
[2021-10-16] VITALS (12 sets, daily range): BP systolic 125–151; BP diastolic 65–74; PULSE 72–79; RESP 16–18; TEMP 36.1–36.4; O2SAT 2–97
[2021-10-16 03:42] LABS: Add Manual Diff / Slide Review NO; Basophils Absolute Auto 100 /uL (0-100); Basophils Percent Auto 0.6 % (0-2); Eosinophils Absolute Auto 100 /uL (0-450); Eosinophils Percent Auto 0.5 % (2-4); Hematocrit 36.9 % (36-46); Hemoglobin 12.2 g/dL (12.0-16.0); Lymphocytes Absolute Auto 2400 /uL (1100-4500); Lymphocytes Percent Auto 14.3 % (25-40); Mean Corpuscular Hemoglobin 30.6 PG (26-34); Mean Corpuscular Volume 92.9 fL (80-100); Monocytes Absolute Auto 4400 /uL (0-900); Monocytes Percent Auto 26.7 % (3-14); Neutrophils Absolute Auto 9600 /uL (1500-7000); Neutrophils Percent Auto 57.9 % (50-75); Platelet Count 214 X10^3/uL (150-400); Red Blood Cell Count 3.97 X10^6/uL (4.0-5.2); Red Cell Distribution Width 14.3 % (11.6-14.8); White Blood Cell Count 16.6 X10^3/uL (4.5-11.0)
[2021-10-16 03:53] LABS: Alanine Aminotransferase 26 IU/L (<35); Albumin 3.8 g/dL (3.5-5.0); Albumin Globulin Ratio 1.1 (1.0-2.8); Alkaline Phosphatase 82 U/L (38-126); Aspartate Aminotransferase 30 IU/L (14-36); BUN Creatinine Ratio 28.8 (6-22); Bilirubin Total 1.1 mg/dL (0.2-1.3); Blood Urea Nitrogen 23 mg/dL (7-17); Calcium 9.1 mg/dL (8.4-10.2); Carbon Dioxide 35 mmol/L (22-32); Chloride 94 mmol/L (98-107); Estimated Glomerular Filt Rate > 60 mL/min (>60); Globulin 3.6 g/dL (1.7-4.1); Glucose 260 mg/dL (80-110); HEMOLYSIS 22 (0-50); Potassium 3.9 mmol/L (3.4-5.1); Sodium 136 mmol/L (137-145); Total Protein 7.4 g/dL (6.3-8.2)
[2021-10-16] MEDS: NYSTATIN POWDER 15GM 1 APPLIC TOP ×3 (05:24→21:56)
[2021-10-16] MEDS: LEVOTHYROXINE 100 MCG TABLET PO (05:25)
--- NOTE | 2021-10-16 08:06 | PC.NURSE ---
Addendum entered by Karie Aleman R.N. 10/16/21 16:33: Patient will be discharged most likely tomorrow, she had an extra small bm but needs to do more. She is lying on her r.side with hob up 30d. O pain and patient is comfortable. Addendum entered by Karie Aleman R.N. 10/16/21 13:42: Patient given lactulose and a suppository and she did have an extra small bowel movement. is aware and she will most likely be discharged back to [facility] today around 1500. Addendum entered by Karie Aleman R.N. 10/16/21 11:20: Patients head repositioned and pillow taken out, she is comfortable now. Original Note: Assess- Patient is groggy and confused at times. Lung sounds are clear, she is on 2L of oxygen with o sob. Patient has a stage two between her gluteal fold with dressing in place. She is lying supine, patient is a large lady, we will try to reposition her using the the ari bed, turing her side to side. Resting comfortably. When she wakes up more will give her breakfast.
[2021-10-16] MEDS: LACTOBACILLUS ACIDOPHILUS TABLET 1 EACH PO ×3 (08:21→17:48)
[2021-10-16] MEDS: ASPIRIN EC 81 MG TABLET PO (08:21)
[2021-10-16] MEDS: buPROPion SR 100 MG TAB PO ×2 (08:22→21:31)
[2021-10-16] MEDS: BUMETANIDE 1 MG TABLET PO (08:22)
[2021-10-16] MEDS: FAMOTIDINE 20 MG TABLET PO ×2 (08:23→21:31)
[2021-10-16] MEDS: dilTIAZem CD 240 MG CAP PO (08:24)
[2021-10-16] MEDS: FLUCONAZOLE 100 MG TABLET 200 MG PO (08:24)
[2021-10-16] MEDS: lisinopriL 20 MG TABLET PO ×2 (08:25→21:32)
[2021-10-16] MEDS: DULOXETINE 30 MG CAPSULE 90 MG PO (08:25)
[2021-10-16] MEDS: ARIPiprazole 10 MG TABLET 2.5 MG PO (08:25)
[2021-10-16] MEDS: GABAPENTIN 600 MG TABLET PO ×2 (08:26→21:31)
[2021-10-16] MEDS: POTASSIUM CHLORIDE 10 MEQ TAB PO (08:26)
[2021-10-16] MEDS: APIXABAN 5 MG TABLET PO ×2 (08:26→21:31)
[2021-10-16] MEDS: INSULIN GLARGINE 100 UNIT/ML 3ML PEN 46 UNIT SUBCUT ×2 (08:33→21:43)
[2021-10-16] MEDS: INSULIN LISPRO 100 UNIT/ML 3ML VIAL SUBCUT ×4 (08:34→21:45)
[2021-10-16] MEDS: polyethylene glycoL 3350 17 GM POWD.PACK PO ×2 (08:39→21:30)
--- NOTE | 2021-10-16 10:15 | PC.NURSE ---
Patient resting in bed, turns to left side with assist x 2. Skin check reveals no new issues; Right gluteal cleft wound appears to have epithelialized 100% since last week with no open area noted. There are presently no open or reddened areas noted to sacrogluteal area or heels. Patient is tilted to right side with thirty degree tilt using pillow, heels floated off bed surface with pillow. Patient reports comfort.
[2021-10-16] MEDS: LACTULOSE 20 GM/30 ML SOLUTION PO (11:36)
[2021-10-16] MEDS: BISACODYL 10 MG SUPP PR (11:43)
--- NOTE | 2021-10-16 11:51 | PC.NURSE ---
Pt just administered lactulose and a bisacodyl suppository. Will check frequently for a BM. Pt resting comfortably in bed now.
--- NOTE | 2021-10-16 15:26 | CM.DPC ---
DCP/continued: Reviewed chart. Per provider patient will have to have bowel movement prior to d/c. Current plan is [facility] when stable. Jackie made aware that this will most likely be tomorrow 10-17-21. P: [facility] when stable. JADYN
--- NOTE | 2021-10-16 15:30 | DIET.CONS ---
Dietary Consultation Note Admission Date: 10/11/2021 14:16 Assessment: 81 y/o F with PMH of Afib, CHF, chronic repiratory failure, and obesity hypoventilatory syndrome/CARINA. RD consulted for low celestina, skin integrity r/t a chronic decubitus ulcer. T2DM Spoke with pt and she is amenable to increased vitamin c with fruit cup at meals and to try Josue for wound healing. PO is adequate. States she has had this wound for some time. Reports enjoying protein foods, ie eggs, chicken. Recent BG >250 mg.dL. To help improve healing would rec keeping BG 140-180mg/dL. Last 3 mornings she has had an 8am BG >200mg/dL. Would likely benefit from titration in glargine. Ht: 177.8 cm Wt: 149.7 kg BMI: 50.3 UBW: Last BM: 10/16/21 (10/16/21 13:24) MNA: 9 Celestina Score: 10 Diet: 10/11/21 Dinner Carbohydrate Consistent Diet Diet Modifications: Carbohydrate level: Large (4 CHO) Fluid Restriction Diet Diet Modifications: Total fluid amount: 1,800 Amount allotted to patient trays: 300 Free water included in total: Yes Fluid in addition to trays: 4721-1950 amount: 1,500 [id number] amount: 300 Nutrition Percent Meal Consumed 100% 10/16/21 13:24 Percent Meal Consumed 50% 10/16/21 09:25 Percent Meal Consumed 90 10/15/21 17:54 Percent Meal Consumed 100% 10/15/21 12:35 Percent Meal Consumed 60% 10/15/21 09:00 Percent Meal Consumed 50% 10/14/21 18:26 Labs: RBC 3.97 X10^6/uL (4.0-5.2) L 10/16/21 03:30 Hgb 12.2 g/dL (12.0-16.0) 10/16/21 03:30 Hct 36.9 % (36-46) 10/16/21 03:30 Creatinine 0.80 mg/dL (0.52-1.04) 10/16/21 03:30 Lactate 2.0 mmol/L (0.7-2.1) 10/11/21 14:40 NT-Pro-B Natriuret Pep 544 pg/mL (<450) H 10/11/21 10:34 Nutrition Diagnosis: Increased protein and vitamin c needs r/t chronic ulcer aeb PMH unhealing wound and pt report Interventions: 1. Kitchen will send Josue BID 2. enc prioritizing pro foods 3. Kitchen will send fruit cup with meals 4. Rec increase in glargine until FBG are <200 5. Provided MNT education for wound healing Monitoring/Evaluations: Josue tolerance, PO, BG Electronically Signed by: Elisha Tolliver 10/16/21 15:30 Clinical Dietitian [address] [id number]
--- NOTE | 2021-10-16 19:33 | PM.PN.1 ---
Subjective Subjective Date Patient Seen: 10/16/21 Interval history: BRIEF HPI THIS IS A MORBIDLY OBESE 81 YEAR OLD FEMALE.? PATIENT HAS BEEN ADMITTED WITH SYMPTOMS WHICH WAS SUSPICIOUS FOR POSSIBLE TIA/CVA.? CVA HAS BEEN RULED OUT.? TIA COOL HAVE BEEN A POSSIBILITY PATIENT IS ALSO BEING TREATED FOR SOME DERMATITIS? OF THE LEFT HIP.? NO OPEN LESION; IMPROVED UTI IS ALSO SUSPECTED WITH SIGNIFICANT PYURIA NOTED ON URINALYSIS ON ADMISSION. PRIOR CULTURE NOTED WITH COLI, PROTEUS TODAY ? NO SIGNIFICANT ISSUES REPORTED BY NURSING OVERNIGHT ?HOWEVER? NURSING DID? REPORT THIS MORNING THAT PATIENT? HAS NOT HAVE A BOWEL MOVEMENT FOR LAST? FEW DAYS ?REQUESTED AN ENEMA ?HOWEVER PATIENT? DENIES ANY NAUSEA OR VOMITING ?NO ABDOMINAL PAIN NO CHEST PAIN.? NO CHEST PRESSURE Exam Vital Signs (past 8 hours): - 10/16/21 13:00 10/16/21 13:24 10/16/21 16:57 Temperature 97.5 F L 97.0 F L Pulse Rate 79 72 74 Respiratory Rate 18 18 18 Blood Pressure 130/65 125/74 Pulse Oximetry 96 96 94 10/16/21 17:00 Temperature Pulse Rate Respiratory Rate Blood Pressure Pulse Oximetry 96 Oxygen Delivery Method Nasal Cannula Oxygen Flow Rate 2 Narrative Exam Narrative: NO ACUTE DISTRESS.? PATIENT IS ALERT ORIENTED X2.? MORBIDLY OBESE. HEAD ATRAUMATIC NORMOCEPHALIC NECK : ? NO LYMPHADENOPATHY.? SOME REDNESS NOTED ON THE RIGHT SIDE OF THE NECK.? NONTENDER TO TOUCH.? NO PALPATING MASS. EYE:? EOMI, PERRLA, NORMAL CONJUNCTIVA; NO JAUNDICE CHEST:? REGULAR RATE.? ? NO RUBS.? PMI IS NON DISPLACED.? NO MURMURS; NORMAL S1-S2 PULMONARY:? ? DECREASED BREATH SOUND AT THE BASES.? BIBASILAR CRACKLES.? NO RALES.? NO RHONCHI. ABDOMEN:? OBESE BUT? SOFT.? NONTENDER.? ? BOWEL SOUNDS ARE PRESENT IN ALL 4 QUADRANTS.? NO MASS. NO GUARDING.? NO REBOUND TENDERNESS EXTREMITIES: CHRONIC DEFORMITIES NOTED TO BILATERAL LOWER EXTREMITIES.? EDEMA AT 2+ NONPITTING BILATERALLY ALSO APPRECIATED.? PULSES ARE APPRECIATED BILATERALLY AND EQUAL NEURO:? CRANIAL NERVES 2-12 GROSSLY INTACT. NO FOCAL NEUROLOGICAL DEFICIT NOTED. CHRONIC DEFORMITIES.? ? CHRONIC WEAKNESS WITH STRENGTH BEING 4/5 ALSO AND APPRECIATED TO BILATERAL LOWER AND UPPER EXTREMITIES. MSK:? NORMAL RANGE OF MOTION FOR AGE.? NO JOINT EFFUSION. POOR MUSCULATURE.? DEFORMITIES SKIN:? FAIR SKIN TURGOR.? SKIN FOLDS NOTED WITH TIM. ? STAGE I DECUBITUS ULCER.? COCCYX AREA :? NORMAL EXTERNAL GENITALIA.? CRAMER CATHETER IN PLACE WITH YELLOWISH? URINE PSYCH : ? CALM.? OPERATIVE. Objective Labs Result Diagrams: 10/16/21 03:30 10/16/21 03:30 Labs: Laboratory Results - last 24 hr 10/16/21 10/16/21 03:30 03:30 WBC 16.6 H RBC 3.97 L Hgb 12.2 Hct 36.9 MCV 92.9 MCH 30.6 MCHC 33.0 RDW 14.3 Plt Count 214 Neut % (Auto) 57.9 Lymph % (Auto) 14.3 L Fountain % (Auto) 26.7 H Eos % (Auto) 0.5 L Baso % (Auto) 0.6 Neut # (Auto) 9600 H Lymph # (Auto) 2400 Fountain # (Auto) 4400 H Eos # (Auto) 100 Baso # (Auto) 100 Sodium 136 L Potassium 3.9 Chloride 94 L Carbon Dioxide 35 H BUN 23 H Creatinine 0.80 Estimated GFR > 60 BUN/Creatinine Ratio 28.8 H Glucose 260 H Calcium 9.1 Total Bilirubin 1.1 AST 30 ALT 26 Alkaline Phosphatase 82 Total Protein 7.4 Albumin 3.8 Globulin 3.6 Albumin/Globulin Ratio 1.1 PFSH Medical History Acute on chronic respiratory failure with hypoxia and hypercapnia Anemia Atherosclerotic heart disease of [place] coronary artery without angina pectoris Atrial fibrillation Chronic kidney disease, stage 3 Chronic pain syndrome Diabetes Gastroesophageal reflux disease Hereditary and idiopathic neuropathy, unspecified Hyperlipidemia Hypertension Hypertensive chronic kidney disease with stage 1 through stage 4 chronic kidney disease, or unspecified chronic kidney disease Hypothyroidism Hypoventilation associated with obesity syndrome 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 SYMPTOMS RESOLVED.? MONITOR CLOSELY ?POSSIBLE CELLULITIS TO LEFT THIGH ; RULED OUT.? ? MILD DERMATITIS SUSPECTED ?LEUKOCYTOSIS.? LIKELY DUE TO INFECTIOUS? PROCESS.? SOURCE IS LIKELY URINE ?FEVER.? LIKELY ASSOCIATED WITH INFECTIOUS PROCESS.? RESOLVED ?POSSIBLE SEPSIS.? PRESENT ON ARRIVAL.? SOURCE? COULD BE THE URINE.? LIKELY GRAM-NEGATIVE BACTERIA ?LACTIC ACIDOSIS.? LIKELY ASSOCIATED WITH SEPSIS.? RESOLVED ?ACUTE PYELONEPHRITIS.? ? GRAM-NEGATIVE BACTERIA SUSPECTED.? ON ANTIBIOTICS ?MORBID OBESITY.? COUNSELING TO BE GIVEN ONCE APPROPRIATE ?ELIQUIS COAGULOPATHY.? MONITOR CLOSELY ?ATRIAL FIBRILLATION PER HISTORY.? ON TELE AT ALL TIMES ?DIABETES TYPE 2 PER HISTORY ?CHRONIC? RESPIRATORY FAILURE PER HISTORY ?HYPERTENSION PER HISTORY ?HYPERLIPIDEMIA PER HISTORY ?BED- CONFINEMENT STATE PER HX CHRONIC HEART FAILURE WITH PRESERVED EJECTION FRACTION.? NO SIGN OF ACUTE EXACERBATION HYPO MAGNESEMIA.? TO BE REPLACED BY PHARMACY TEAM CHRONIC? STAGE I DECUBITUS ULCER.? PRESENT ON ARRIVAL..? MEPILEX DAILY ?CONSTIPATION.? NEEDED ORDERS IN? CHART ?PLAN MULTIPLE ATTEMPTS TO FACILITATE BOWEL MOVEMENT HAS FAILED SO FAR WILL CONTINUE WITH DAILY ENEMAS CONTINUES STOOL SOFTENER. PATIENT IS ON MIRALAX AND SENOKOT ALSO WILL DECREASE BUMEX TO HALF OF THE DOSE DISCONTINUE METOLAZONE ALTOGETHER. HOLD DISCHARGE FOR NOW IF PATIENT IS ABLE TO HAVE A SIGNIFICANT BOWEL MOVEMENT IN THE NEXT 24 HOURS WILL DISCHARGE BACK TO ALF FACILITY 10/15 ?URINALYSIS REPEATED YESTERDAY AND WAS FAIRLY UNREMARKABLE ?WILL REPEAT CHEST X-RAY TODAY IN THE MEANWHILE WILL ALSO DISCONTINUE ANTIBIOTICS UNTIL A SOURCE OF INFECTION COULD BE IDENTIFIED ?WILL CONTINUE TO FOLLOW LAB CLOSELY ?PRIOR CULTURES WITHOUT? SIGNIFICANT GROWTH HOWEVER REPEATED URINE CULTURE IS PENDING ?HER ELEVATED WHITE BLOOD CELL COUNT COULD BE RELATED TO REACTIVE LEUKOCYTOSIS SECONDARY TO INFLAMMATORY PROCESS ? THERE IS NO OBVIOUS SIGNS? OF ONGOING INFECTIOUS PROCESS. ? HOWEVER WILL CONTINUE DIFLUCAN COMPLETE A 7 DAY COURSE ?ADDITIONAL MANAGEMENT PER CLINICAL COURSE ?DISCHARGE ONCE CLINICALLY STABLE 10/14 ?PATIENT WBC LEVEL REMAINED ELEVATED DESPITE BEING ON ANTIBIOTIC ?BLOOD CULTURES REMAIN NEGATIVE. ? IT SEEMS, DESPITE SIGNIFICANT PYURIA NOTED ON URINALYSIS ON ADMISSION, CULTURES WERE NOT SENT ?WILL? REPEAT URINALYSIS TODAY WELL URINE CULTURES. ? PATIENT ALSO WILL BE CONTINUED ON ANTIFUNGAL THERAPY FOR NOW. ? FURTHERMORE A? COMPLETE HEAD TO TOE? ASSESSMENT DONE TODAY. ? NURSING PRESENT DURING THE ASSESSMENT. ? NO ? SUSPICIOUS LESIONS APPRECIATED DURING THE ASSESSMENT ? DD URINARY TRACT CONTINUE TO BE SUSPECTED THE SOURCE OF THE INFECTION ?CONTINUE TO FOLLOW CLOSELY. ?DAILY LAB ORDERED ?PLAN TO DISCHARGE TO ALF FACILITY ONCE CLINICALLY STABLE 10/13 IN REGARD TO HER HEART FAILURE. THIS IS CHRONIC NO SIGN OF ACUTE EXACERBATION/DECOMPENSATION SUSPECTED AT THIS TIME. PATIENT APPEARS TO BE RESPONDING WELL IN REGARD TO DIURETIC THERAPY. SHE DOES HAVE SOME LOWER EXTREMITY EDEMA BUT THIS COULD BE DUE TO NONCOMPLIANCE WITH DIURETIC THERAPY. KIDNEY FUNCTIONS HOLDING FAIRLY WELL WHILE ON DIURETIC. NO SIGNIFICANT ELECTROLYTES ABNORMALITY APPRECIATED. CONTINUE TO MONITOR INPUT AND OUTPUT CLOSELY NURSING TO WEIGH PATIENT DAILY AND REPORT ANY SIGNIFICANT WEIGHT GAIN. FLUID RESTRICTION IN PLACE AND TO BE FOLLOWED ORDERED. PATIENT APPEARED TO BE CLINICALLY IMPROVED. HER WHITE BLOOD CELL COUNT REMAINED ELEVATED BUT IMPROVED OVERNIGHT CONTINUE CURRENT ANTIBIOTICS FOR NOW AGAIN, ANTIBIOTICS TREATMENT IS TAILORED USING LAST CULTURE. WILL CONSIDER REPEATING ALL CULTURES IF INDICATED CLINICALLY BLOOD CULTURE REMAINS NEGATIVE TO DATE. BLOOD SUGAR HAS BEEN REMAINING ABOVE DUE TO 100S WILL INCREASE MORNING DOSE OF LANTUS TODAY FOR STRICTER BLOOD SUGAR CONTROL ADDITIONAL MANAGEMENT PER CLINICAL COURSE 10/12 PATIENT LABS IMPROVED OVERNIGHT WHILE ON ANTIBIOTICS I SUSPECT THE SOURCE OF HER INFECTION IS LIKELY THE URINE WILL CONTINUE CEFEPIME FOR NOW DOXY WILL BE CONTINUED WELL FOR ANOTHER 24-48 HOURS WILL DISCONTINUE VANCOMYCIN CONTINUE DIFLUCAN HOWEVER. CONTINUE TO FOLLOW DAILY CBC ADJUST? ANTIBIOTIC THERAPY PER CLINICAL COURSE MONITOR CLOSELY FOR SIGN OF DIARRHEA WHICH COULD INDICATE C DIFF COLITIS NO INDICATIONS FOR CELLULITIS AT THIS TIME. REDNESS NOTED ON ADMISSION HAS SIGNIFICANTLY IMPROVED THIS WAS LIKELY DERMATITIS OF UNCLEAR CAUSE. PATIENT HAS NO RESIDUAL NEURO DEFICIT AT THIS TIME. HER SYMPTOMS ON ADMISSION COULD HAVE BEEN A TIA. WILL MONITOR CLOSELY ON IT FOR NOW. ABG OVERNIGHT APPEAR TO SHOW THAT PATIENT IS A CHRONIC RETAINER. SHE HAS OHS/CARINA AND WILL ORDER BIPAP TO BE USED AT NIGHT NEEDED PATIENT APPEARED TO BE FLUID OVERLOADED WELL WILL START ON BUMEX AND TO 3 DAYS METOLAZONE MONITOR KIDNEY FUNCTION AND ELECTROLYTES CLOSELY STRICT INPUT AND OUTPUT DAILY WEIGHTS WITH SAME? SCALE ADDITIONAL MANAGEMENT PER CLINICAL COURSE PROGNOSIS REMAIN GUARDED 10/11 ?IN REGARD TO NEUROLOGICAL SYMPTOM REPORTED BY THE ER ?ON ADMISSION PATIENT DENIES ANY WEAKNESS ?STATED THAT SHE FEELS LIKE SHE IS AT [facility] ?NO NUMBNESS REPORTED TO THE EXTREMITIES. ? CT SCAN OF THE BRAIN DID NOT SHOW ANY SIGNIFICANT ALLERGY PER ?WILL CONTINUE TO MONITOR CLOSELY ?NEUROLOGICAL CHECK FOR THE NEXT 24 HOURS EVERY 4 HOURS ?AT THIS TIME PATIENT APPEARED TO BE SEPTIC WITH SOURCE OF INFECTION NOT COMPLETELY CLEAR ?COULD BE THE URINE. ? SHE DOES HAVE SOME REDNESS TO MULTIPLE PART OF HER BODY BUT NO ABSCESS IS PACKED IT ?WILL START ON BROAD-SPECTRUM ANTIBIOTICS FOR NOW ?WILL ALSO ADD ANTI FUNGAL THERAPY A PRECAUTION ?MONITOR CLOSELY FOR ANY SIGN OF COMPLICATIONS A SIZE C DIFF COLITIS WHILE ON ANTIBIOTIC? THERAPY ?PATIENT WILL NEED TO BE ON A BI TRIG BED MATTRESS TO DECREASE THE RISK OF SKIN BREAKDOWN ?NURSING TO TURN OR ENCOURAGE PATIENT TO TURN EVERY 2 HOURS TO DECREASE THE RISK OF DECUBITUS ULCER ?NURSING TO PROVIDE FREQUENT SKIN CARE INDICATED ?ASPIRATION? PRECAUTIONS TO BE MAINTAINED AT ALL TIME WELL ?DAILY LAB TO FOLLOW ?CONSULT PHYSICAL THERAPY AND OCCUPATIONAL THERAPY FOR IN BED RANGE? OF MOTION EXERCISES ?ADDITIONAL MANAGEMENT PER CLINICAL COURSE ?PROGNOSIS IS GUARDED DUE TO MULTIPLE COMORBIDITIES PRESENT ADMISSION Time Spent With Patient Critical Care time: I spent a total of [] minutes of critical care time on this patient's care today; this time is exclusive of procedural time. Quality VTE Deep Vein Thrombosis/Pulmonary Embolism Present on Admission: No
[2021-10-16] MEDS: LACTULOSE 20 GM/30 ML SOLUTION PR (21:30)
[2021-10-16] MEDS: ATORVASTATIN 20 MG TABLET 40 MG PO (21:31)
[2021-10-16] MEDS: SENNOSIDES 8.6 MG TABLET 17.2 MG PO (21:31)
[2021-10-16] MEDS: SODIUM CHLORIDE 0.9% FLUSH 10 ML IV (21:36)
[2021-10-17] VITALS (8 sets, daily range): BP systolic 140–156; BP diastolic 64–75; PULSE 70–75; RESP 15–20; TEMP 35.7–36.8; O2SAT 94–96
[2021-10-17 05:00] LABS: Add Manual Diff / Slide Review YES; Hematocrit 37.3 % (36-46); Hemoglobin 12.4 g/dL (12.0-16.0); Mean Corpuscular HGB Conc 33.2 % (30-36); Mean Corpuscular Hemoglobin 30.9 PG (26-34); Platelet Count 232 X10^3/uL (150-400); Red Cell Distribution Width 14.3 % (11.6-14.8)
[2021-10-17 05:43] LABS: Alanine Aminotransferase 24 IU/L (<35); Albumin 3.8 g/dL (3.5-5.0); Alkaline Phosphatase 100 U/L (38-126); Aspartate Aminotransferase 29 IU/L (14-36); BUN Creatinine Ratio 32.6 (6-22); Bilirubin Total 0.8 mg/dL (0.2-1.3); Blood Urea Nitrogen 28 mg/dL (7-17); Calcium 9.1 mg/dL (8.4-10.2); Carbon Dioxide 37 mmol/L (22-32); Chloride 93 mmol/L (98-107); Estimated Glomerular Filt Rate > 60 mL/min (>60); Globulin 3.7 g/dL (1.7-4.1); Glucose 274 mg/dL (80-110); HEMOLYSIS < 15 (0-50); Sodium 137 mmol/L (137-145); Total Protein 7.5 g/dL (6.3-8.2)
[2021-10-17 05:48] LABS: Magnesium 1.6 mg/dL (1.6-2.3); Phosphorous 3.6 mg/dL (2.8-4.1)
[2021-10-17] MEDS: LEVOTHYROXINE 100 MCG TABLET PO (06:21)
[2021-10-17 07:05] LABS: Total Cells Counted 100
[2021-10-17 07:06] LABS: Neutrophils Absolute Manual 12410 /uL (3000-5900); RBC Morphology Normal Morphology
[2021-10-17] MEDS: INSULIN GLARGINE 100 UNIT/ML 3ML PEN 46 UNIT SUBCUT (08:26)
[2021-10-17] MEDS: INSULIN LISPRO 100 UNIT/ML 3ML VIAL SUBCUT ×2 (08:29→12:06)
[2021-10-17] MEDS: DOXYCYCLINE HYCLATE 100 MG TABLET PO (08:32)
[2021-10-17] MEDS: GABAPENTIN 600 MG TABLET PO (08:33)
[2021-10-17] MEDS: DULOXETINE 30 MG CAPSULE 90 MG PO (08:33)
[2021-10-17] MEDS: ASPIRIN EC 81 MG TABLET PO (08:33)
[2021-10-17] MEDS: FAMOTIDINE 20 MG TABLET PO (08:33)
[2021-10-17] MEDS: buPROPion SR 100 MG TAB PO (08:33)
[2021-10-17] MEDS: LACTOBACILLUS ACIDOPHILUS TABLET 1 EACH PO ×2 (08:33→12:35)
[2021-10-17] MEDS: CEFDINIR 300 MG CAPSULE PO (08:34)
[2021-10-17] MEDS: APIXABAN 5 MG TABLET PO (08:34)
[2021-10-17] MEDS: lisinopriL 20 MG TABLET PO (08:34)
[2021-10-17] MEDS: ARIPiprazole 10 MG TABLET 2.5 MG PO (08:34)
[2021-10-17] MEDS: POTASSIUM CHLORIDE 10 MEQ TAB PO (08:34)
[2021-10-17] MEDS: FLUCONAZOLE 100 MG TABLET 200 MG PO (08:46)
--- NOTE | 2021-10-17 09:02 | PC.NURSE ---
Addendum entered by Karie Aleman R.N. 10/17/21 15:19: Both of patients midlines have been taken out and dressings applied. Report called to Roma at [facility] and patient just left to go over. Law sent with patient. Original Note: Assess- Patient had a large bowel movement earlier this am per Night Nurse. She is doing well this am. Blood sugar 286 this morning, insulin given. She denies pain. Patient is a 1:1 feeder. Bottom ulcer is healing. Patient voiced that she would like to go back to [place]. She is resting comfortably now and tolerating her food without choking
[2021-10-17 11:35] LABS: COVID19 -Nasal RAPID Negative (Negative)
[2021-10-17] MEDS: MAGNESIUM CHLORIDE 64 MG TABLET 128 MG PO (12:05)
--- NOTE | 2021-10-17 12:52 | P.DS_ITS ---
History of Present Illness History of Present Illness Chief complaint: Expressive aphasia,LKW t-1 2200 Narrative: THIS IS A MORBIDLY OBESE BED BOUND 81-YEAR-OLD FEMALE WITH A PAST MEDICAL HISTORY SIGNIFICANT FOR ATRIAL FIBRILLATION AND IS ON ELIQUIS FOR STROKE PREVENTION, CHF, CHRONIC RESPIRATORY FAILUREFAILURE, AND OBESITY HYPOVENTILATORY SYNDROME /[place], PATIENT WAS SEEN IN THE ER TODAY WITH REPORTED WEAKNESS AND NUMBNESS TO THE EXTREMITIES. HOWEVER PATIENT REPORTED THAT THOSE SYMPTOMS HAVE COMPLETELY RESOLVED. SHE WAS ALSO NOTED TO HAVE SOME REDNESS ON THE RIGHT SIDE OF HER FACE WELL A LEFT HIP AREA. SHE WAS NOTED WITH FEVER ABOVE 100 IN THE ER. CELLULITIS WAS SUSPECTED AND SHE WAS GIVEN ANTIBIOTICS. PATIENT IS A POOR HISTORIAN. MOSTLY HISTORY WAS TAKEN FROM THE ER REPORT WELL NURSING NOTES. PATIENT RESIDES IN ASSISTED LIVING FACILITY. A CT SCAN IN THE ER WITH CONTRAST DID NOT SHOW ANY SIGNIFICANT STENOSIS OR LARGE ARTERY BLOCKAGES. CT OF THE BRAIN WAS NEGATIVE WELL FOR ID ANY ACUTE PROCESS. CHEST X-RAY WITH SOME MILD CONGESTION LABS WITH SIGNIFICANT BECAUSE CYTOSIS. COAGULOPATHIES APPRECIATED. HOWEVER PATIENT IS ON ELIQUIS NORMAL KIDNEY FUNCTIONS APPRECIATED. PROCALCITONIN WAS WITHIN ACCEPTABLE LEVEL. INITIAL LACTIC ACID WAS 3 BUT REPEAT 2. Discharge Providers Provider Date of admission: 10/11/21 14:16 Discharge Date: 10/17/21 Primary care physician: JUANJO Brito Consults: 10/11/21 17:01 Consult to Occupational Therapy Evaluate & Treat Comment: ROM EXERCISES Physician Instructions: Evaluate and treat Consult to Physical Therapy Evaluate & Treat Comment: ROM EXERCISES Physician Instructions: Evaluate and Treat 10/14/21 16:48 Consult to Dietitian, Adult Routine Comment: low celestina Reason For Exam: immobility/ skin intergrity 10/15/21 15:30 Consult to Dietitian, Adult Routine Comment: due to immobility Reason For Exam: low celestina Discharge provider: Joe Duke, DO Summary Hospital Course Discharge Diagnosis: POSSIBLE TIA.? SYMPTOMS RESOLVED.? MONITOR CLOSELY MILD DERMATITIS TO RT THIGH; RESOLVING ?PERSISTENT LEUKOCYTOSIS.? DC ON ABX ?FEVER.? RESOLVED ?POSSIBLE SEPSIS.? PRESENT ON ARRIVAL.? RESOLVED ?LACTIC ACIDOSIS.? .? RESOLVED ?ACUTE PYELONEPHRITIS.? ? GRAM-NEGATIVE BACTERIA SUSPECTED.? DC ON ANTIBIOTICS ?MORBID OBESITY.? COUNSELING GIVEN ?ELIQUIS COAGULOPATHY.? MONITOR CLOSELY ?ATRIAL FIBRILLATION PER HISTORY.? RATE CONTROLLED ?DIABETES TYPE 2 PER HISTORY; STABLE BG LEVEL ?CHRONIC? RESPIRATORY FAILURE PER HISTORY; AT BASELINE ?HYPERTENSION PER HISTORY ?HYPERLIPIDEMIA PER HISTORY ?BED- CONFINEMENT STATE PER HX CHRONIC HEART FAILURE WITH PRESERVED EJECTION FRACTION.? NO SIGNS OF ACUTE EXACERBATION HYPO MAGNESEMIA.? TO BE REPLACED BY PHARMACY TEAM CHRONIC? STAGE I DECUBITUS ULCER.? PRESENT ON ARRIVAL..? MEPILEX DAILY ?CONSTIPATION.? NEEDED ORDERS IN? CHART Hospital Course: THIS IS A MORBIDLY OBESE YEAR OLD FEMALE WHO HAS ADMITTED IN HOSPITAL OVER THE LAST COUPLE OF DAYS FOR MULTIPLE ISSUES SHE WAS SEEN IN THE ER AND SUSPECTED TO HAVE NEUROLOGICAL SYMPTOM AND TIA/ CVA MINUTE TIME I EXAMINED PATIENT, HER SYMPTOM HAD COMPLETELY RESOLVED. I SUSPECT THIS COULD HAVE BEEN A TIA. THE PATIENT WAS ALSO SUSPECTED TO HAVE URINARY TRACT INFECTION WITH SIGNIFICANT PYURIA NOTED ON URINALYSIS PATIENT WAS TREATED WITH ANTIBIOTICS HOWEVER HER URINE CULTURE DID NOT SHOW ANY SIGNIFICANT GROWTH . DUE TO HER WHITE BLOOD CELL COUNT REMAINING SLIGHTLY ABOVE THE ACCEPTED COUNT, PATIENT WAS ALSO TREATED WITH ANTIFUNGAL THERAPY SHE DOES HAVE SIGNS OF POSSIBLE HISSING FAXED ON THE PERINEAL AREA. SHE HAS BEEN ALSO RECEIVING NYSTATIN WHICH HAS BEEN APPLIED TO HER SKIN FOLDS DAILY. PATIENT HAD A FULL HEAD-TO-TOE ASSESSMENT. THERE IS NO SIGNIFICANT FINDINGS. NO OBVIOUS LESIONS. NO SIGN OF ABSCESS OR ANY WORRISOME INFECTIOUS PROCESS. SHE DOES HAVE A STAGE I DECUBITUS ULCER WAS PRESENT ON ARRIVAL IN THE SACRAL AREA. THIS IS BEING TREATED WITH DAILY DRESSING. MEPILEX IS USED TO COVER THE AREA. HER WHITE BLOOD CELL COUNT AGAIN REMAIN ELEVATED. SHE HAS NOT BEEN FEBRILE. THE DECUBITUS ALSO COULD BE THE SOURCE OF INFECTION WELL. SHE WILL BE DISCHARGED ON DOXYCYCLINE WELL OMNICEF FOR BROAD COVERAGE OVER THE NEXT 7 DAYS. THIS WILL COVER DO URINARY TRACT WELL THE SACRAL LESION IF THOSE ARE THE SOURCE OF INFECTION IN CASE ANY CASE, FOR FURTHER IMAGING SUCH A CT SCAN OF THE PELVIC / BUTTOCKS AREA COULD ALSO BE ORDERED IF INDICATED PATIENT DOES NOT APPEAR TO BE TOXIC. SHE APPEARS TO BE BACK TO HER BASELINE. PATIENT ALSO HAS SOME ISSUES WITH CONSTIPATION. SHE WILL BE STARTED ON MIRALAX WELL CONTINUE HER HOME SENOKOT. LACTULOSE HAS BEEN ORDERED IT. SHE IS ON A HIGH DOSE OF OPIOIDS USES BEEN DISCONTINUED. SHE WILL BE CONTINUE ON TRAMADOL ONLY FOR PAIN. THIS WILL DECREASE THE RISK OF OPIOIDS INDUCED CONSTIPATION. INSTRUCTION ACTIVITIES TOLERATED. FALL PRECAUTION OR TIME. PATIENT IS BEDBOUND FOLLOW-UP WITH PRIMARY CARE PHYSICIAN WITHIN 3-14 DAYS CARDIAC/DIABETIC DIET. FLUID RESTRICTION OF 1800 CC RECOMMENDED DAILY. Status at Discharge Cognitive/behavioral status at discharge: oriented Functional status at discharge: bed bound Overall status at discharge: patient is progressing back to baseline Time Spent with Patient Time spent: Greater than 30 minutes Exam Vital Signs (past 8 hours): - 10/17/21 05:00 10/17/21 05:20 10/17/21 07:00 Temperature 97.2 F L 98.3 F Pulse Rate 70 71 Respiratory Rate 20 16 Blood Pressure 143/69 H 148/74 H Pulse Oximetry 96 96 94 10/17/21 08:34 10/17/21 09:08 10/17/21 10:52 Temperature 96.2 F L Pulse Rate 71 75 Respiratory Rate 17 Blood Pressure 148/74 H 140/64 Pulse Oximetry 94 94 Oxygen Delivery Method Nasal Cannula Oxygen Flow Rate 2 Narrative Exam Narrative: NO ACUTE DISTRESS.? PATIENT IS ALERT ORIENTED X2.? MORBIDLY OBESE. HEAD ATRAUMATIC NORMOCEPHALIC NECK : ? NO LYMPHADENOPATHY.? SOME REDNESS NOTED ON THE RIGHT SIDE OF THE NECK.? NONTENDER TO TOUCH.? NO PALPATING MASS. EYE:? EOMI, PERRLA, NORMAL CONJUNCTIVA; NO JAUNDICE CHEST:? REGULAR RATE.? ? NO RUBS.? PMI IS NON DISPLACED.? NO MURMURS; NORMAL S1- S2 PULMONARY:? ? DECREASED BREATH SOUND AT THE BASES.? BIBASILAR CRACKLES.? NO RALES.? NO RHONCHI. ABDOMEN:? OBESE BUT? SOFT.? NONTENDER.? ? BOWEL SOUNDS ARE PRESENT IN ALL 4 QUADRANTS.? NO MASS. NO GUARDING.? NO REBOUND TENDERNESS EXTREMITIES: CHRONIC DEFORMITIES NOTED TO BILATERAL LOWER EXTREMITIES.? EDEMA AT 2+ NONPITTING BILATERALLY ALSO APPRECIATED.? PULSES ARE APPRECIATED BILATERALLY AND EQUAL NEURO:? CRANIAL NERVES 2-12 GROSSLY INTACT. NO FOCAL NEUROLOGICAL DEFICIT NOTED. CHRONIC DEFORMITIES.? ? CHRONIC WEAKNESS WITH STRENGTH BEING 4/5 ALSO AND APPRECIATED TO BILATERAL LOWER AND UPPER EXTREMITIES. MSK:? NORMAL RANGE OF MOTION FOR AGE.? NO JOINT EFFUSION. POOR MUSCULATURE.? DEFORMITIES SKIN:? FAIR SKIN TURGOR.? SKIN FOLDS NOTED WITH TIM. ? STAGE I DECUBITUS ULCER.? COCCYX AREA :? NORMAL EXTERNAL GENITALIA.? CRAMER CATHETER IN PLACE WITH YELLOWISH? URINE PSYCH : ? CALM.? OPERATIVE. Objective Labs Result Diagrams: 10/17/21 04:40 10/17/21 04:40 Labs: Laboratory Results - last 24 hr 10/17/21 10/17/21 10/17/21 04:40 04:40 04:40 WBC 17.0 H RBC 4.00 Hgb 12.4 Hct 37.3 MCV 93.0 MCH 30.9 MCHC 33.2 RDW 14.3 Plt Count 232 Neut % (Auto) Not Reportable Lymph % (Auto) Not Reportable [place] % (Auto) Not Reportable Eos % (Auto) Not Reportable Baso % (Auto) Not Reportable Lymph # (Auto) Not Reportable [place] # (Auto) Not Reportable Baso # (Auto) Not Reportable Total Counted 100 Seg Neutrophils % 68.0 Band Neutrophils % 5.0 Lymphocytes % (Manual) 11.0 L Monocytes % (Manual) 14.0 H Eosinophils % (Manual) 1.0 L Myelocytes % 1.0 H Neutrophils # (Manual) 75605 H RBC Morphology Normal morphology Sodium 137 Potassium 4.0 Chloride 93 L Carbon Dioxide 37 H BUN 28 H Creatinine 0.86 Estimated GFR > 60 BUN/Creatinine Ratio 32.6 H Glucose 274 H Calcium 9.1 Phosphorus 3.6 Magnesium 1.6 Total Bilirubin 0.8 AST 29 ALT 24 Alkaline Phosphatase 100 Total Protein 7.5 Albumin 3.8 Globulin 3.7 Albumin/Globulin Ratio 1.0 SARS-CoV-2 (PCR) 10/17/21 10:34 WBC RBC Hgb Hct MCV MCH MCHC RDW Plt Count Neut % (Auto) Lymph % (Auto) [place] % (Auto) Eos % (Auto) Baso % (Auto) Lymph # (Auto) [place] # (Auto) Baso # (Auto) Total Counted Seg Neutrophils % Band Neutrophils % Lymphocytes % (Manual) Monocytes % (Manual) Eosinophils % (Manual) Myelocytes % Neutrophils # (Manual) RBC Morphology Sodium Potassium Chloride Carbon Dioxide BUN Creatinine Estimated GFR BUN/Creatinine Ratio Glucose Calcium Phosphorus Magnesium Total Bilirubin AST ALT Alkaline Phosphatase Total Protein Albumin Globulin Albumin/Globulin Ratio SARS-CoV-2 (PCR) Negative [facility] Medical History Acute on chronic respiratory failure with hypoxia and hypercapnia Anemia 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 Atrial fibrillation Chronic kidney disease, stage 3 Chronic pain syndrome Diabetes Gastroesophageal reflux disease Hereditary and idiopathic neuropathy, unspecified Hyperlipidemia Hypertension Hypertensive chronic kidney disease with stage 1 through stage 4 chronic kidney disease, or unspecified chronic kidney disease Hypothyroidism Hypoventilation associated with obesity syndrome Insomnia MCC current use of anticoagulant therapy Major depressive disorder Obesity Obstructive sleep apnea Urinary incontinence Venous insufficiency (chronic) (peripheral) Wheelchair bound Surgical History History of abdominal hysterectomy History of bilateral knee replacement History of toe surgery Family History Father Stroke Mother Cancer Social History household members: children and caregiver Smoking Status: Former smoker alcohol intake: former Discharge Plan Discharge Plan Patient Disposition: SNF Transfer to: [facility] Discharge orders & Medications Prescriptions: New polyethylene glycol 3350 17 gram Powder In Packet 17 gm PO BID Qty: 60 2RF tramadol 50 mg Tablet 50 mg PO Q4H PRN (Reason: Pain, Moderate (4-6)) Qty: 20 0RF bumetanide 1 mg Tablet 0.5 mg PO DAILY Qty: 30 2RF cefdinir 300 mg Capsule 300 mg PO BID Qty: 14 0RF doxycycline hyclate 100 mg Tablet 100 mg PO BID Qty: 14 0RF Bacid 1 billion cell- 250 mg Tablet 1 ea PO TIDWM Qty: 90 2RF lactulose 10 gram/15 mL (15 mL) solution 10 g PO DAILY PRN (Reason: CONSTIPATION ) Qty: 600 0RF Continued nitroglycerin [Nitrostat] 0.4 MG tablet, sublingual 0.4 mg Sublingual PRN PRN (Reason: Chest Pain) Qty: 0 0RF atorvastatin 40 mg Tablet 40 mg PO BEDTIME 0RF potassium chloride 10 mEq Capsule, Extended Release 10 meq PO DAILY 0RF diltiazem HCl 240 mg Capsule,Extended Release 24 Hr 240 mg PO DAILY 0RF Rx Instructions: hold if SBP<110 or HR<60 call aspirin [Aspir-Low] 81 mg Tablet,Delayed Release (Dr/Ec) 81 mg PO DAILY 0RF aripiprazole 5 mg Tablet 2.5 mg PO DAILY 0RF bupropion HCl 100 mg tablet sustained-release 12 hr 100 mg PO BID 0RF gabapentin 600 mg tablet 600 mg PO TID 0RF levothyroxine 100 mcg tablet 100 mcg PO DAILY 0RF pantoprazole 40 mg tablet,delayed release (DR/EC) 40 mg PO DAILY 0RF nystatin 100,000 unit/gram cream 1 applic TOPICAL BID 0RF Rx Instructions: to inner groin for yeast. wash area with mild soap and water, pat dry, then apply cream. DC this order when area is resolved duloxetine 30 mg Capsule,Delayed Release(Dr/Ec) 90 mg PO DAILY 0RF Eliquis 5 mg tablet 5 mg PO BID 0RF acetaminophen 500 mg Tablet 1,000 mg PO BID MDD 3 g PRN (Reason: Pain (Scale Score 4-6)) 0RF sennosides [senna] 8.6 mg Tablet 17.2 mg PO BID 0RF Label Comments: hold for loose stool Lantus U-100 Insulin 100 unit/mL Solution 76 units subcut DAILY 0RF insulin lispro [Humalog U-100 Insulin] 100 unit/mL Solution See Rx Instructions .ROUTE .COMPLEX 0RF Rx Instructions: 1 dose subcutaneously sliding scale 151-250=10 units, 251-350=15u, 351-450=20 u ac and bedtime >451 call MD Fink Solostar U-100 Insulin 100 unit/mL (3 mL) Insulin Pen 46 unit SUBCUT BEDTIME 0RF Discontinued furosemide 80 mg tablet 40 mg PO DAILY 0RF hydrocodone bitartrate [Hysingla ER] 40 mg tablet,oral only,ext.rel.24 hr 40 mg PO QAM 0RF tramadol 50 mg Tablet 50 mg PO Q8H PRN (Reason: Moderate Pain (Scale Score 5-6)) 0RF morphine 15 mg Tablet 15 mg PO BID PRN (Reason: Moderate Pain (Scale Score 5-6)) 0RF Follow up/Referrals: Fernanda Knox ARNP [Primary Care Provider] - Diet/Activity/Treatments Diet: Carb-consistent/Diabetic, Low-fat, Low-sodium and Low-cholesterol Food texture: Soft Activity: BED BOUND Catheter: 2-way Cramer Catheter comment: REMOVE INDICATED ; REFER TO UROLOGY IF INDICATED Skin/Wound/Dressing Care Report to your healthcare provider any signs of infection, such as:: chills, fever, night sweats, increased pain, unusual drainage and unusual redness Discharge Data Primary Care Provider: Fernanda Knox VTE Deep Vein Thrombosis/Pulmonary Embolism Present on Admission: No
--- NOTE | 2021-10-17 13:24 | CM.DPNOTE ---
DCP/continued: Reviewed chart. Patient with order to d/c to SNF today. Current d/c plan is [facility]. [facility] and confirmed acceptance. Asked ARMANDO/Luh Hand to finalize plan. Met with patient to confirm plan. Patient aware and agreeble. Patient asked that I contact her daughter. FARM TRACTOR OPERATOR made attempt and was unable to reach. Therefore, passed on information to RN/Karie to make attempt. Patient scheduled to be picked up around 2:45pm. P: [facility] today. JADYN
== END 2021-10-17 15:21 | DRG 872 ==
LOC: ED 13:58 → AC 14:17
PROVIDERS: Internal Medicine; Admitting Provider Hospitalist; Emergency Provider Emergency Medicine; PCP Nurse Practitioner Family; Referring Provider Emergency Medicine; Visit Provider Hospitalist
DX: A41.9 Sepsis, unspecified organism (principal); G45.9 Transient cerebral ischemic attack, unspecified; E66.2 Morbid (severe) obesity with alveolar hypoventilation; Z68.43 Body mass index [BMI] 50.0-59.9, adult; N10 Acute pyelonephritis; J96.10 Chronic respiratory failure, unspecified whether with hypoxia or hypercapnia; I50.32 Chronic diastolic (congestive) heart failure; L89.151 Pressure ulcer of sacral region, stage 1; E83.42 Hypomagnesemia; I48.91 Unspecified atrial fibrillation; L30.9 Dermatitis, unspecified; K59.00 Constipation, unspecified; E78.5 Hyperlipidemia, unspecified; E11.9 Type 2 diabetes mellitus without complications; E03.9 Hypothyroidism, unspecified; K21.9 Gastro-esophageal reflux disease without esophagitis; I11.0 Hypertensive heart disease with heart failure; F32.A Depression, unspecified; Z99.81 Dependence on supplemental oxygen; Z87.891 Personal history of nicotine dependence; Z79.01 Long term (current) use of anticoagulants; Z20.822 Contact with and (suspected) exposure to COVID-19; Z79.4 Long term (current) use of insulin
CPT/HCPCS: 36415; 36591; 36592; 36600; 70450; 70496; 70498; 71045; 80048; 80053; 80202; 80305; 81001; 82550; 82805; 82962; 83605; 83735; 83880; 84100; 84145; 84484; 85007; 85025; 85610; 85730; 87040; 87086; 87635; 93005; 93010; 94660; 94760; 96361; 96365; 96367; 99285; C9803; A9270; J0692; J1642; J1815; J1940; J2270; J2543

== ENCOUNTER 2022-07-11 13:39 | Emergency (ER) | payer MEDICARE, OTHER, MEDICAID, SELFPAY ==
[2021-12-21 09:16] VITALS: BMI 50.3
[2022-07-11 13:46] VITALS: BP 153/72; PULSE 67; RESP 18; TEMP 36.5; O2SAT 98; BMI 51.0
--- NOTE | 2022-07-11 13:52 | DI.CT.S_ITS ---
PROCEDURE: CT CHEST ABD PEL WO CON INDICATIONS: fell and hit head, tailbone TECHNIQUE: After the administration of oral contrast, 5 mm thick sections acquired from the lung apices to the symphysis pubis. 5 mm thick coronal and sagittal reformats acquired, with additional 7 mm coronal MIP reformats through the lungs. For radiation dose reduction, the following was used: automated exposure control, adjustment of mA and/or kV according to patient size. COMPARISON: None. FINDINGS: Image quality: Suboptimal due to lack of intravenous contrast, arm positioning and body habitus. CHEST: Lungs and pleura: No acute pulmonary opacities. No pleural effusions or pneumothorax. Central and peripheral airways are patent are normal in caliber. Greater than 10 pulmonary nodules, predominantly within the lower lung zones. Examples include: -5 millimeter solid nodule, inferior right upper lobe (5/168). -8 millimeters solid nodule, lateral right middle lobe (5/203). -9 millimeters solid nodule, right lung base (5/221). Mediastinum: Heart size is normal. No pericardial effusion. No mediastinal adenopathy by CT size criteria. Thoracic aorta and central pulmonary arteries are normal in size. Esophagus is normal in caliber. No hiatal hernia. Chest wall: No axillary or supraclavicular adenopathy by size criteria. Thyroid gland is unremarkable . ABDOMEN: Solid organs: Liver is normal in size. Cholelithiasis without evidence of acute cholecystitis. Pancreas is normal in contours. Spleen is normal in size. No adrenal nodules. Both kidneys are normal in size, without hydronephrosis or nephrolithiasis. Fluid attenuating renal cyst on the left, presumably benign. Peritoneum and bowel: Small and large bowel loops are normal in caliber and wall thickness. No free fluid or air. Nodes and vessels: No retroperitoneal or mesenteric adenopathy by size criteria. Aorta and inferior vena cava are normal in size. Miscellaneous: No ventral hernias. PELVIS: Genitourinary: Bladder wall thickness is normal. Miscellaneous: No inguinal hernias or adenopathy. Bones: Osteoporosis by Hounsfield unit criteria. No displaced fracture. IMPRESSION: 1. No acute abnormality. 2. Greater than 10 solid pulmonary nodules, predominantly within the lung bases. Comparison not available at time dictation. Number and distribution of pulmonary nodules is concerning for metastatic disease. Follow-up in 3-6 months is indicated if there is no history of malignancy. 3. Osteoporosis. Dictated by: Tylor Sarmiento M.D. on 07/11/2022 at 14:34 Approved by: Tylor Sarmiento M.D. on 07/11/2022 at 14:43
--- NOTE | 2022-07-11 13:52 | DI.CT.S_ITS ---
PROCEDURE: CT CERVICAL SPINE WO CON INDICATIONS: fell and hit head, tailbone TECHNIQUE: Noncontrast 3 mm thick sections acquired from the skull base to the T4 level. Sagittal and coronal reformats were then constructed. For radiation dose reduction, the following was used: automated exposure control, adjustment of mA and/or kV according to patient size. COMPARISON: [facility], CT, CT HEAD/BRAIN WO CON, 07/11/2022, 13:56. [facility], CT, C-SPINE WITHOUT CONTRAST, 03/08/2016, 11:47. FINDINGS: Image quality: This examination is somewhat limited by quantum mottle artifact. Bones: No fractures or dislocations. Visualized superior ribs are intact. Focal degenerative change is seen involving the C1-C2 interface anteriorly. Bridging anterior osteophytes can be seen, which are worst at C5-C6 and C6-C7. There is calcification of the posterior aspect of the longitudinal ligament at C3-C4. Soft tissues: Prevertebral soft tissues are normal in thickness. No paravertebral hematomas. No apical pneumothoraces. IMPRESSION: Negative for acute fracture. Multilevel degenerative changes. Dictated by: Mike Reid M.D. on 07/11/2022 at 13:54 Approved by: Mike Reid M.D. on 07/11/2022 at 13:55
--- NOTE | 2022-07-11 13:52 | DI.CT.S_ITS ---
PROCEDURE: CT HEAD/BRAIN WO CON INDICATIONS: fell and hit head, tailbone TECHNIQUE: Noncontrast 4.5 mm thick angled axial sections acquired from the foramen magnum to the vertex, with coronal and sagittal reformats. For radiation dose reduction, the following was used: automated exposure control, adjustment of mA and/or kV according to patient size. COMPARISON: [facility], CT, CT CERVICAL SPINE WO CON, 07/11/2022, 13:56. [facility], CT, CT HEAD/BRAIN WO CON, 08/21/2020, 17:45. FINDINGS: Image quality: Mild streak artifact can be seen through the skull base. CSF spaces: Basal cisterns are patent. No extra-axial fluid collections. The ventricles are symmetric in size and shape. Brain: No intracranial bleeds or masses. There is cerebral volume loss for age, with resultant ventricular and sulcal prominence. There are periventricular and deep white matter chronic small vessel ischemic changes. There is intracranial internal carotid artery atherosclerosis. Skull and face: Calvarium and visualized facial bones appear intact, without suspicious lesions. Sinuses: Visualized sinuses and mastoids are clear. IMPRESSION: No acute intracranial hemorrhage is seen. No acute intracranial process is seen. Dictated by: Mike Reid M.D. on 07/11/2022 at 13:52 Approved by: Mike Reid M.D. on 07/11/2022 at 13:53
--- NOTE | 2022-07-11 16:46 | ED_ITS ---
HPI - Fall <Avelina Michelle Michaels [facility] - Last Filed: 07/11/22 18:12> General Chief Complaint: Trauma Stated Complaint: Fell from amrita lift 3-4 fit, hit head Time Seen by Provider: 07/11/22 16:34 Source: patient and EMS Mode of arrival: EMS History of Present Illness HPI Narrative: This is 81-year-old female presents to the emergency department from [facility] where she had a fall from 3 ft in a Amrita lift onto her buttocks. She is anticoagulated on Eliquis for atrial fibrillation, denies head injury or loss of consciousness, denies nausea vomiting, neck pain, weakness or any focal injury. She states that it did not feel well but she does not have ongoing pain from this. She denies shortness of breath, chest pain or head wound. Moderate trauma activation and imaging ordered at presentation. Patient is not in distress, answering questions appropriately, denies head neck or back pain on initial exam. Related Data Home Medications Medication Instructions Recorded Confirmed nitroglycerin 0.4 mg sublingual 0.4 mg sublingual PRN PRN Chest 07/05/16 12/26/21 tablet (Nitrostat) Pain ##0 aripiprazole 5 mg tablet 2.5 mg PO DAILY 04/03/18 12/26/21 atorvastatin 40 mg tablet 40 mg PO BEDTIME 04/03/18 12/26/21 potassium chloride 10 mEq 10 meq PO DAILY 04/03/18 12/26/21 capsule,extended release acetaminophen 500 mg tablet 1,000 mg PO BID PRN Pain (Scale 04/14/18 12/26/21 Score 4-6) insulin lispro 100 unit/mL See Rx Instructions .Route .COMPLEX 06/06/18 12/26/21 subcutaneous solution (Humalog U-100 Insulin) sennosides 8.6 mg tablet (senna) 17.2 mg PO BID 06/06/18 12/26/21 apixaban 5 mg tablet (Eliquis) 5 mg PO BID 07/07/19 12/26/21 duloxetine 30 mg capsule,delayed 90 mg PO DAILY 07/07/19 12/26/21 release gabapentin 600 mg tablet 600 mg PO TID 07/07/19 12/26/21 levothyroxine 100 mcg tablet 100 mcg PO DAILY 07/07/19 12/26/21 nystatin 100,000 unit/gram topical 1 applic topical BID 07/07/19 12/26/21 cream pantoprazole 40 mg tablet,delayed 40 mg PO DAILY 07/07/19 12/26/21 release bupropion HCl 100 mg tablet,12 hr 100 mg PO BID 07/07/20 12/26/21 sustained-release diltiazem HCl 180 mg capsule,24 180 mg PO DAILY 12/26/21 12/26/21 hr,extended release insulin glargine 100 unit/mL (3 48 unit SUBCUT BEDTIME 12/26/21 12/26/21 mL) subcutaneous pen (Lantus Solostar U-100 Insulin) insulin glargine 100 unit/mL 74 unit SUBCUT DAILY 12/26/21 12/26/21 subcutaneous solution (Lantus U-100 Insulin) lisinopril 5 mg tablet 5 mg PO DAILY 12/26/21 12/26/21 Previous Rx's Medication Instructions Recorded L.acidophilus-L.bulgar-B.bifid-S.thermoph 1 ea PO TIDWM #90 tabs 10/17/21 1 billion cell-250 mg tablet (Bacid) bumetanide 1 mg tablet 0.5 mg PO DAILY #30 tabs 10/17/21 lactulose 10 gram/15 mL (15 mL) 10 g (15 mL) PO DAILY PRN 10/17/21 oral solution CONSTIPATION #600 mL polyethylene glycol 3350 17 gram 17 gm PO BID #60 ea 10/17/21 oral powder packet tramadol 50 mg tablet 50 mg PO Q4H PRN Pain, Moderate 10/17/21 (4-6) #20 tabs Allergies Allergy/AdvReac Type Severity Reaction Status Date / Time adhesive [ADHESIVE] Allergy Mild ALLERGY TO Verified 09/01/20 17:16 TAPE Review of Systems <JUANJO Gatica - Last Filed: 07/11/22 18:12> Review of Systems ROS Unobtainable: All systems reviewed & are unremarkable except as noted in HPI and below Patient History <JUANJO Gatica - Last Filed: 07/11/22 18:12> Medical History Acute on chronic respiratory failure with hypoxia and hypercapnia Anemia Atherosclerotic heart disease of [place] coronary artery without angina pectoris Atrial fibrillation Chronic kidney disease, stage 3 Chronic pain syndrome Diabetes Gastroesophageal reflux disease Hereditary and idiopathic neuropathy, unspecified Hyperlipidemia Hypertension Hypertensive chronic kidney disease with stage 1 through stage 4 chronic kidney disease, or unspecified chronic kidney disease Hypothyroidism Hypoventilation associated with obesity syndrome Insomnia 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 Major depressive disorder Obesity Obstructive sleep apnea Urinary incontinence Venous insufficiency (chronic) (peripheral) Wheelchair bound Surgical History History of abdominal hysterectomy History of bilateral knee replacement History of toe surgery Family History Father Stroke Mother Cancer Social History household members: children and caregiver Smoking Status: Former smoker alcohol intake: former Smoking Status: Former smoker alcohol intake frequency: 0-2 drinks per day Substance Use Type: does not use Exam <JUANJO Gatica - Last Filed: 07/11/22 18:12> Narrative Exam Narrative: Reviewed vitals signs and nursing notes. General: cooperative, comfortable, in no acute distress, well groomed obese and resting in bed sitting upright HEENT: symmetrical facial expressions, moist mucous membranes, atraumatic on exam, no tenderness along C-spine, full range of motion without deficit Cardiovascular: regular rate and rhythm, no peripheral edema, warm extremities Respiratory: normal effort, able to speak in complete sentences, without wheezing, stridor, or abnormal breath sounds. No retractions or tachypnea. GI: abdomen soft, nontender to palpation, nondistended, without masses, rebound tenderness or exquisite tenderness with exam. MSK: moves all extremities, neurovascularly intact, no weakness, normal tone Skin: brisk capillary refill, without pallor or erythema Neuro: normal speech and cognition, A&O x3, clear speech Psych: mental status is grossly normal, congruent mood, normal affect, pleasant and cooperative Initial Vital Signs Initial Vital Signs: Vital Signs Temperature 97.7 F 07/11/22 13:46 Pulse Rate 67 07/11/22 13:46 Respiratory Rate 18 07/11/22 13:46 Blood Pressure 153/72 H 07/11/22 13:46 Pulse Oximetry 98 07/11/22 13:46 Oxygen Delivery Method 07/11/22 13:46 <Kavon Montes De Oca MD - Last Filed: 07/17/22 02:04> Initial Vital Signs Initial Vital Signs: Vital Signs Temperature 97.7 F 07/11/22 13:46 Pulse Rate 67 07/11/22 13:46 Respiratory Rate 18 07/11/22 13:46 Blood Pressure 153/72 H 07/11/22 13:46 Pulse Oximetry 98 07/11/22 13:46 Oxygen Delivery Method 07/11/22 13:46 Course <JUANJO Gatica - Last Filed: 07/11/22 18:12> Orders Ordered: Discontinued Medications Acetaminophen (Acetaminophen 325 Mg Tablet) 975 mg PO NOW ONE Stop: 07/11/22 16:45 Last Admin: 07/11/22 16:49 Dose: 975 mg Documented By: BS Vital Signs Vital signs: Vital Signs - 8 hr 07/11/22 13:46 07/11/22 16:50 07/11/22 16:51 Temperature 97.7 F Pulse Rate 67 68 63 Respiratory Rate 18 Blood Pressure 153/72 H Pulse Oximetry 98 95 97 Oxygen Delivery Method Room Air Room Air 07/11/22 16:51 Temperature Pulse Rate Respiratory Rate Blood Pressure 153/74 H Pulse Oximetry Oxygen Delivery Method <Kavon Montes De Oca MD - Last Filed: 07/17/22 02:04> Orders Ordered: Discontinued Medications Acetaminophen (Acetaminophen 325 Mg Tablet) 975 mg PO NOW ONE Stop: 07/11/22 16:45 Last Admin: 07/11/22 16:49 Dose: 975 mg Documented By: BS Vital Signs Vital signs: Vital Signs - 8 hr 07/11/22 13:46 07/11/22 16:50 07/11/22 16:51 Temperature 97.7 F Pulse Rate 67 68 63 Respiratory Rate 18 Blood Pressure 153/72 H Pulse Oximetry 98 95 97 Oxygen Delivery Method Room Air Room Air 07/11/22 16:51 Temperature Pulse Rate Respiratory Rate Blood Pressure 153/74 H Pulse Oximetry Oxygen Delivery Method MDM - Fall <JUANJO Gatica - Last Filed: 07/11/22 18:12> Imaging Data CT scan - head: Radiologist's Impression: PROCEDURE:? CT HEAD/BRAIN WO CON ? INDICATIONS:? fell and hit head, tailbone ? TECHNIQUE:? Noncontrast 4.5 mm thick angled axial sections acquired from the foramen magnum to the vertex, with coronal and sagittal reformats.? For radiation dose reduction, the following was used:? automated exposure control, adjustment of mA and/or kV according to patient size.? ? COMPARISON:? [facility], CT, CT CERVICAL SPINE WO CON, 07/11/2022, 13:56.? [facility], CT, CT HEAD/BRAIN WO CON, 08/21/2020, 17:45. ? FINDINGS:? Image quality:? Mild streak artifact can be seen through the skull base. ? CSF spaces:? Basal cisterns are patent.? No extra-axial fluid collections.? The ventricles are symmetric in size and shape.? ? Brain:? No intracranial bleeds or masses.? There is cerebral volume loss for age, with resultant ventricular and sulcal prominence.? There are periventricular and deep white matter chronic small vessel ischemic changes.? There is intracranial internal carotid artery atherosclerosis.? ? Skull and face:? Calvarium and visualized facial bones appear intact, without suspicious lesions.? ? Sinuses:? Visualized sinuses and mastoids are clear.? ? ? IMPRESSION:? No acute intracranial hemorrhage is seen.? ? No acute intracranial process is seen.? ? ? Dictated by: Mike Reid M.D. on 07/11/2022 at 13:52 ? ? Approved by: Mike Reid M.D. on 07/11/2022 at 13:53 ? CT scan - abdomen/pelvis: Radiologist's Impression: PROCEDURE:? CT CHEST ABD PEL WO CON ? INDICATIONS:? fell and hit head, tailbone ? TECHNIQUE:? After the administration of oral contrast, 5 mm thick sections acquired from the lung apices to the symphysis pubis.? 5 mm thick coronal and sagittal reformats acquired, with additional 7 mm coronal MIP reformats through the lungs.? For radiation dose reduction, the following was used:? automated exposure control, adjustment of mA and/or kV according to patient size.? ? COMPARISON:? None. ? FINDINGS:? Image quality:? Suboptimal due to lack of intravenous contrast, arm positioning and body habitus. ? CHEST:? Lungs and pleura:? No acute pulmonary opacities.? No pleural effusions or pneumothorax.? Central and peripheral airways are patent are normal in caliber.? Greater than 10 pulmonary nodules, predominantly within the lower lung zones.? Examples include: -5 millimeter solid nodule, inferior right upper lobe (5/168). -8 millimeters solid nodule, lateral right middle lobe (5/203). -9 millimeters solid nodule, right lung base (5/221). ? Mediastinum:? Heart size is normal.? No pericardial effusion.? No mediastinal adenopathy by CT size criteria.? Thoracic aorta and central pulmonary arteries are normal in size.? Esophagus is normal in caliber.? No hiatal hernia.? ? Chest wall:? No axillary or supraclavicular adenopathy by size criteria.? Thyroid gland is unremarkable .? ? ? ABDOMEN:? Solid organs:? Liver is normal in size. Cholelithiasis without evidence of acute cholecystitis.? Pancreas is normal in contours.? Spleen is normal in size.? No adrenal nodules.? Both kidneys are normal in size, without hydronephrosis or nephrolithiasis.? Fluid attenuating renal cyst on the left, presumably benign. ? Peritoneum and bowel:? Small and large bowel loops are normal in caliber and wal l thickness.? No free fluid or air.? ? Nodes and vessels:? No retroperitoneal or mesenteric adenopathy by size criteria.? Aorta and inferior vena cava are normal in size.? ? Miscellaneous:? No ventral hernias.? ? ? PELVIS:? Genitourinary:? Bladder wall thickness is normal.? ? Miscellaneous:? No inguinal hernias or adenopathy.? ? Bones:? Osteoporosis by Hounsfield unit criteria.? No displaced fracture. ? ? IMPRESSION:? ? 1. No acute abnormality.? 2. Greater than 10 solid pulmonary nodules, predominantly within the lung bases.? Comparison not available at time dictation.? Number and distribution of pulmonary nodules is concerning for metastatic disease.? Follow-up in 3-6 months is indicated if there is no history of malignancy.? 3. Osteoporosis.? ? Dictated by: Tylor Sarmiento M.D. on 07/11/2022 at 14:34 ? ? Approved by: Tylor Sarmiento M.D. on 07/11/2022 at 14:43 ? CT - cervical spine: Radiologist's Impression: PROCEDURE:? CT CERVICAL SPINE WO CON ? INDICATIONS:? fell and hit head, tailbone ? TECHNIQUE:? Noncontrast 3 mm thick sections acquired from the skull base to the T4 level.? Sagittal and coronal reformats were then constructed.? For radiation dose reduction, the following was used:? automated exposure control, adjustment of mA and/or kV according to patient size.? ? COMPARISON:? [facility], CT, CT HEAD/BRAIN WO CON, 07/11/2022, 13:56.? [facility], CT, C-SPINE WITHOUT CONTRAST, 03/08/2016, 11:47. ? FINDINGS:? Image quality:? This examination is somewhat limited by quantum mottle artifact.? ? Bones:? No fractures or dislocations.? Visualized superior ribs are intact.? ? Focal degenerative change is seen involving the C1-C2 interface anteriorly.? Bridging anterior osteophytes can be seen, which are worst at C5-C6 and C6-C7.? There is calcification of the posterior aspect of the longitudinal ligament at C3-C4. ? Soft tissues:? Prevertebral soft tissues are normal in thickness.? No paravertebral hematomas.? No apical pneumothoraces.? ?? IMPRESSION:? Negative for acute fracture. ? Multilevel degenerative changes. ?? Dictated by: Mike Reid M.D. on 07/11/2022 at 13:54 ? ? Approved by: Mike Reid M.D. on 07/11/2022 at 13:55 ? MDM Narrative Medical decision making narrative: Chief Complaint: Fall from amrita lift on to buttocks This is 81-year-old female presents to the emergency department from [facility] where she had a fall from 3 ft in a Amrita lift onto her buttocks. She is anticoagulated on Eliquis for atrial fibrillation, denies head injury or loss of consciousness, denies nausea vomiting, neck pain, weakness or any focal injury. Differential diagnoses include but are not limited to: Fracture, intracranial injury, C-spine injury, ligamental injury, rib injury, compression fracture, muscle strain/sprain, soft tissue injury hemorrhage I have reviewed the patient's vital signs and nursing notes as well as prior records if available. Pertinent Imaging reviewed: CT head, C-spine, chest abdomen pelvis, all exams do not show acute fracture, hemorrhage or acute injury which is new. Incidental findings of pulmonary nodules were found, on my review of her prior CTs, this is not present. Discussion: On exam, patient is nontender, does not have any evidence of traumatic injury, she states that she has a very mild headache but would like to go home, denies altered mentation, vision changes, dizziness lightheadedness, or concussive symptoms. Her speech is clear, no motor deficit, without ecchymosis, abdominal pain to palpation, back pain to palpation, or other abnormal finding on exam or history. Gave patient strict return precautions, she was given Tylenol for her headache which she states is a 2 to 3/10. She was transferred back to her residence via BLS and given strict return precautions for worsening symptoms. Discussed concussive symptoms and patient does not have any of these symptoms. Patient's symptoms improved over duration of stay with above-stated therapies. Social considerations that may affect disposition: none Questions are addressed and there is agreement with the plan and for follow-up. Patient is appropriate for outpatient management. MIPS: This encounter doesn't have any diagnosis' associated with MIPS criteria. Discharge Plan Departure Patient Disposition: Home Clinical Impression: Fall involving lift assistance chair as cause of accidental injury Instructions: DI for Muscle Strain, DI for Pulmonary Nodule Activity Restrictions/Additional Instructions: *You have been diagnosed with a fall from the Amrita lift, no evidence of acute injury on your workup today. On your scans today they did not find any evidence of traumatic injury, your showed some chest abdomen and pelvis CT showed some pulmonary nodules which you should follow-up with your primary doctor about in the next few months. Please come back to the emergency department if you have worsening pain, weakness, head or neck pain that is progressive or if you have other concerns. Thank you for your patients, I hope you feel better soon, please use Tylenol as needed for pain and schedule follow-up with your regular doctor. *What to do: *Please continue to take your regular medications as directed. [] New medication prescriptions sent to your pharmacy: [ ] [ ] New medication written as a paper prescription [ x] No new medications given *Please follow up with your primary care provider in 2-3 days, call for an appointment. Let them know you were seen in the Emergency Department and that we asked that you be seen for follow-up. We will electronically transmit a record of today's note if your PCP is in our system *If you do not have a primary care provider please contact [phone] to establish care with one of the [facility] primary care providers. *Return to Emergency Department if you should have any new, worsening, or concerning symptoms, such as [fever greater than 101F, chills, worsening pain, persistent vomiting or other bothersome symptoms]. Prescriptions: No Action nitroglycerin [Nitrostat] 0.4 MG tablet, sublingual 0.4 mg Sublingual PRN PRN (Reason: Chest Pain) Qty: 0 atorvastatin 40 mg Tablet 40 mg PO BEDTIME potassium chloride 10 mEq Capsule, Extended Release 10 meq PO DAILY aripiprazole 5 mg Tablet 2.5 mg PO DAILY bupropion HCl 100 mg tablet sustained-release 12 hr 100 mg PO BID gabapentin 600 mg tablet 600 mg PO TID levothyroxine 100 mcg tablet 100 mcg PO DAILY pantoprazole 40 mg tablet,delayed release (DR/EC) 40 mg PO DAILY nystatin 100,000 unit/gram cream 1 applic TOPICAL BID Rx Instructions: to inner groin for yeast. wash area with mild soap and water, pat dry, then apply cream. DC this order when area is resolved duloxetine 30 mg Capsule,Delayed Release(Dr/Ec) 90 mg PO DAILY Eliquis 5 mg tablet 5 mg PO BID polyethylene glycol 3350 17 gram Powder In Packet 17 gm PO BID Qty: 60 2RF tramadol 50 mg Tablet 50 mg PO Q4H PRN (Reason: Pain, Moderate (4-6)) Qty: 20 0RF bumetanide 1 mg Tablet 0.5 mg PO DAILY Qty: 30 2RF Bacid 1 billion cell- 250 mg Tablet 1 ea PO TIDWM Qty: 90 2RF lactulose 10 gram/15 mL (15 mL) solution 10 g PO DAILY PRN (Reason: CONSTIPATION ) Qty: 600 0RF acetaminophen 500 mg Tablet 1,000 mg PO BID MDD 3 g PRN (Reason: Pain (Scale Score 4-6)) sennosides [senna] 8.6 mg Tablet 17.2 mg PO BID Label Comments: hold for loose stool insulin lispro [Humalog U-100 Insulin] 100 unit/mL Solution See Rx Instructions .ROUTE .COMPLEX Rx Instructions: 1 dose subcutaneously sliding scale 151-250=10 units, 251-350=15u, 351-450=20 u ac and bedtime >451 call insulin glargine [Lantus U-100 Insulin] 100 unit/mL solution 74 unit subcut DAILY insulin glargine [Lantus Solostar U-100 Insulin] 100 unit/mL (3 mL) insulin pen 48 unit SUBCUT BEDTIME diltiazem HCl 180 mg capsule,extended release 24 hr 180 mg PO DAILY lisinopril 5 mg tablet 5 mg PO DAILY Referrals: Fernanda Knox ARNP [Primary Care Provider] - Stand Alone Forms: Patient Portal/API <Kavon Montes De Oca MD - Last Filed: 07/17/22 02:04> Cosign ED Attending Cosmylaature Attestation: I was immediately available in the department for consultation. ?This documentation has been reviewed and I agree with assessment and plan. Supervised by Kavon Montes De Oca MD
[2022-07-11] MEDS: ACETAMINOPHEN 325 MG TABLET 975 MG PO (16:49)
[2022-07-11 16:50] VITALS: PULSE 68; O2SAT 95
[2022-07-11 16:51] VITALS: BP 153/74; PULSE 63; O2SAT 97
== END 2022-07-11 17:50 | disposition home or self-care (01) ==
PROVIDERS: Emergency Provider Nurse Practitioner Critical Care Medicine; PCP Nurse Practitioner Family
DX: S09.90XA Unspecified injury of head, initial encounter (principal); W08.XXXA Fall from other furniture, initial encounter; M54.50 Low back pain, unspecified; I48.91 Unspecified atrial fibrillation; Z79.01 Long term (current) use of anticoagulants; Z79.899 Other long term (current) drug therapy
CPT/HCPCS: 70450; 71250; 72125; 74176; 99284

== ENCOUNTER → 2023-02-01 11:33 | Outpatient (CLI) | payer MEDICARE, OTHER, MEDICAID, SELFPAY ==
[2021-12-21 09:16] VITALS: BMI 50.3
--- NOTE | 2023-02-01 | DI.CT.S_ITS ---
PROCEDURE: CT CHEST WO CON INDICATIONS: Multiple pulmonary nodules, greater than 10, seen on CT scan it approximately 7 months ago 07/11/22. 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 TECHNIQUE: Noncontrast 2.0-2.5 mm thick sections acquired from the pulmonary apices to the posterior costophrenic angles. 7 mm thick axial MIP and 5 mm coronal and sagittal reformats were then acquired. A low radiation dose technique was utilized. COMPARISON: [facility], CT, CT CHEST ABD PEL WO CON, 07/11/2022, 13:56. FINDINGS: Image quality: Diagnostic, given the low radiation dose technique. Lungs and pleura: Previously present multiple pulmonary nodules are again seen. No definite new nodules are found. The prior study had selected 3 example pulmonary nodules and these are as follows: -stable 5 mm or smaller solid nodule inferior right upper lobe (3/130). -stable 8 mm or smaller solid nodule, lateral right middle lobe (3/162). -stable 9 mm or smaller solid nodule, posterolateral right lower lobe adjacent to the dome of the right hemidiaphragm (3/180). Mediastinum: Heart size is normal. No pericardial effusion. No mediastinal adenopathy by size criteria. Thoracic aorta and central pulmonary arteries are normal in size. Esophagus is normal in caliber. No hiatal hernia. Bones and chest wall: No suspicious bony lesions. No vertebral body compression fractures. No axillary or supraclavicular adenopathy by size criteria. Thyroid gland is not well seen by this noncontrast technique but appears free of mass. Abdomen: Visualized upper abdomen solid organs and bowel loops appear normal in the absence of contrast. IMPRESSION: The prior CT scan from June of this year had identified more than 10 pulmonary nodules all of which appear stable over time. If clinically desired assuming the patient is low risk no additional follow-up CT at 18-24 months likely is warranted. Please refer to the Fleischner society recommendations below. Statistically the appearance is most likely due to old granulomatous disease. Fleischner Society criteria for SOLID lung nodule followup. Nodule size (mm)Low-risk patientHigh-risk patient<6 (single or multiple)No routine followup.Optional CT at 12 months. 6-8 (single or multiple)CT at 6-12 months, then optional CT at 18-24 mo.CT at 6-12 months, then CT at 18-24 months. >8 (single)CT at 3 months, PET-CT, or biopsy. Same as for low-risk pts. >8 (multiple)CT at 3-6 months, then optional CT at 18-24 mo.CT at 3-6 months, then CT at 18-24 months. Recommendations do not apply to lung cancer screening, patients with immunosuppression, or patients with known primary cancer. Dictated by: Son Headley M.D. on 02/01/2023 at 13:18 Approved by: Son Headley M.D. on 02/01/2023 at 13:27
== END ==
PROVIDERS: PCP Nurse Practitioner Family; Referring Provider Nurse Practitioner Family; Visit Provider Nurse Practitioner Family
DX: R91.8 Other nonspecific abnormal finding of lung field (principal)
CPT/HCPCS: 71250

== ENCOUNTER → 2023-02-04 13:20 | Outpatient (ROUT) | payer MEDICARE, OTHER, MEDICAID, SELFPAY ==
[2021-12-21 09:16] VITALS: BMI 50.3
[2023-02-04 13:26] LABS: Appearance Urine UA CLOUDY; Bilirubin Urine UA NEGATIVE (NEGATIVE); Color Urine UA YELLOW; Glucose Urine UA NEGATIVE (Negative); Ketones Urine UA NEGATIVE (NEGATIVE); Leukocyte Esterase Urine UA 3+ (NEGATIVE); Nitrite Urine UA NEGATIVE (Negative); Occult Blood Urine UA TRACE-INTACT (Negative); Protein Urine UA NEGATIVE (Negative)
[2023-02-04 13:39] LABS: Bacteria Urine Many (>30); Culture Indicated Urine Specimen Cultured; RBC Urine 1-5/HPF (0-5/HPF); Squamous Epithelial Cell Urine 10-30 /HPF (0-5/HPF); WBC Urine 10-30/HPF (0-5/HPF)
== END ==
PROVIDERS: PCP Nurse Practitioner Family; Visit Provider Nurse Practitioner Family
DX: Z13.89 Encounter for screening for other disorder (principal)
CPT/HCPCS: 81001; 87077; 87086; 87186

== ENCOUNTER → 2023-10-28 22:30 | Outpatient (ROUT) | payer MEDICARE, OTHER, MEDICAID, SELFPAY ==
[2021-12-21 09:16] VITALS: BMI 50.3
[2023-10-28 22:35] LABS: Appearance Urine UA CLEAR; Bilirubin Urine UA NEGATIVE (NEGATIVE); Color Urine UA YELLOW; Glucose Urine UA NEGATIVE (Negative); Ketones Urine UA NEGATIVE (NEGATIVE); Leukocyte Esterase Urine UA 1+ (NEGATIVE); Nitrite Urine UA POSITIVE (Negative); Occult Blood Urine UA NEGATIVE (Negative); Protein Urine UA NEGATIVE (Negative); Specific Gravity Urine UA 1.015 (1.000-1.035)
[2023-10-28 22:52] LABS: Bacteria Urine Many (>30); RBC Urine None Seen (0-5/HPF); Urine Volume 10mL (spun); WBC Urine 10-30/HPF (0-5/HPF); pH Urine UA 5.5 (4.5-8.0)
[2023-10-28 22:53] LABS: Culture Indicated Urine Specimen Cultured; Squamous Epithelial Cell Urine 1-5 /HPF (0-5/HPF)
== END ==
PROVIDERS: PCP Nurse Practitioner Family; Visit Provider Internal Medicine
DX: E11.40 Type 2 diabetes mellitus with diabetic neuropathy, unspecified (principal); G45.9 Transient cerebral ischemic attack, unspecified; E66.01 Morbid (severe) obesity due to excess calories; Z68.42 Body mass index [BMI] 45.0-49.9, adult; U07.1 COVID-19
CPT/HCPCS: 81001; 87077; 87086; 87186

== ENCOUNTER 2023-12-23 11:08 | Emergency (ER) | payer MEDICARE, OTHER, MEDICAID, SELFPAY ==
[2021-12-21 09:16] VITALS: BMI 50.3
[2023-12-23] VITALS (19 sets, daily range): BP systolic 121–243; BP diastolic 62–140; PULSE 67–77; RESP 14–28; TEMP 36.5; O2SAT 85–99; BMI 45.9
--- NOTE | 2023-12-23 11:37 | EKG_ITS ---
[address] [address] Test Date: 2023-12-23 Pat Name: Elena Danielson Department: Room: Gender: Female Title I Assistant: NIKITA : 1940 Requested By: Order Number: [id number] Reading MD: Beny Sandoval Measurements Intervals [place] Rate: 75 P: [place]: QRS: 16 QRSD: 96 T: 145 QT: 382 QTc: 426 Interpretive Statements Atrial fibrillation Low voltage QRS Nonspecific T wave abnormality Electronically Signed On 12-24-2023 12:20:15 PDT by Beny Sandoval
--- NOTE | 2023-12-23 12:07 | ED.GENADULT ---
HPI - General Adult General Chief complaint: Shortness of Breath/Dyspnea Stated complaint: SOB Time Seen by Provider: 12/23/23 11:14 Source: patient and EMS Mode of arrival: EMS History of Present Illness HPI narrative: 83-year-old woman from [facility] who is morbidly obese, occasionally will get into a wheelchair but is essentially bed-bound, history of atrial fibrillation on Eliquis, congestive heart failure chronic respiratory failure is brought in with complaints of chest pain. She states that she awoke with some mild chest pain and shortness of breath has since resolved. When questioned her story seems to change somewhat which I think is more a reflection of her cognitive state rather than the chest pain. Oxygen saturations have been stable on room air throughout her entire emergency visit. She is not complaining of fever, palpitations, change to lower extremity edema. When questioned in detail she says 1 minute that she is pain-free the next minute that she has some central chest pressure. This is not reproducible with palpation. Related Data Home Medications Medication Instructions Recorded Confirmed nitroglycerin 0.4 mg sublingual 0.4 mg sublingual PRN PRN Chest 07/05/16 12/26/21 tablet (Nitrostat) Pain ##0 aripiprazole 5 mg tablet 2.5 mg PO DAILY 04/03/18 12/26/21 atorvastatin 40 mg tablet 40 mg PO BEDTIME 04/03/18 12/26/21 potassium chloride 10 mEq 10 meq PO DAILY 04/03/18 12/26/21 capsule,extended release acetaminophen 500 mg tablet 1,000 mg PO BID PRN Pain (Scale 04/14/18 12/26/21 Score 4-6) insulin lispro 100 unit/mL See Rx Instructions .Route .COMPLEX 06/06/18 12/26/21 subcutaneous solution (Humalog U-100 Insulin) sennosides 8.6 mg tablet (senna) 17.2 mg PO BID 06/06/18 12/26/21 apixaban 5 mg tablet (Eliquis) 5 mg PO BID 07/07/19 12/26/21 duloxetine 30 mg capsule,delayed 90 mg PO DAILY 07/07/19 12/26/21 release gabapentin 600 mg tablet 600 mg PO TID 07/07/19 12/26/21 levothyroxine 100 mcg tablet 100 mcg PO DAILY 07/07/19 12/26/21 nystatin 100,000 unit/gram topical 1 applic topical BID 07/07/19 12/26/21 cream pantoprazole 40 mg tablet,delayed 40 mg PO DAILY 07/07/19 12/26/21 release bupropion HCl 100 mg tablet,12 hr 100 mg PO BID 07/07/20 12/26/21 sustained-release diltiazem HCl 180 mg capsule,24 180 mg PO DAILY 12/26/21 12/26/21 hr,extended release insulin glargine 100 unit/mL (3 48 unit SUBCUT BEDTIME 12/26/21 12/26/21 mL) subcutaneous pen (Lantus Solostar U-100 Insulin) insulin glargine 100 unit/mL 74 unit SUBCUT DAILY 12/26/21 12/26/21 subcutaneous solution (Lantus U-100 Insulin) lisinopril 5 mg tablet 5 mg PO DAILY 12/26/21 12/26/21 Previous Rx's Medication Instructions Recorded L.acidophilus-L.bulgar-B.bifid-S.thermoph 1 ea PO TIDWM #90 tabs 10/17/21 1 billion cell-250 mg tablet (Bacid) bumetanide 1 mg tablet 0.5 mg (1/2 x 1 mg) PO DAILY #30 10/17/21 tabs lactulose 10 gram/15 mL (15 mL) 10 g (15 mL) PO DAILY PRN 10/17/21 oral solution CONSTIPATION #600 mL polyethylene glycol 3350 17 gram 17 gm PO BID #60 ea 10/17/21 oral powder packet tramadol 50 mg tablet 50 mg PO Q4H PRN Pain, Moderate 10/17/21 (4-6) #20 tabs Allergies Allergy/AdvReac Type Severity Reaction Status Date / Time adhesive [ADHESIVE] Allergy Mild ALLERGY TO Verified 12/23/23 11:23 TAPE Review of Systems Review of Systems Narrative: Pertinent positive and negative findings as per HPI Patient History Medical History Acute on chronic respiratory failure with hypoxia and hypercapnia Hypoventilation associated with obesity syndrome 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 Hyperlipidemia Chronic kidney disease, stage 3 Wheelchair bound Urinary incontinence Venous insufficiency (chronic) (peripheral) Atherosclerotic heart disease of [place] coronary artery without angina pectoris Hypertensive chronic kidney disease with stage 1 through stage 4 chronic kidney disease, or unspecified chronic kidney disease Chronic pain syndrome Hereditary and idiopathic neuropathy, unspecified Obstructive sleep apnea Insomnia Major depressive disorder Anemia Atrial fibrillation Gastroesophageal reflux disease Hypothyroidism Obesity Diabetes Hypertension Surgical History History of toe surgery History of abdominal hysterectomy History of bilateral knee replacement Family History Father Stroke Mother Cancer Social History household members: children and caregiver Smoking Status: Former smoker alcohol intake: former Smoking Status: Former smoker alcohol intake frequency: 0-2 drinks per day Substance Use Type: does not use Exam Initial Vital Signs Initial Vital Signs: Vital Signs Temperature 97.7 F 12/23/23 11:23 Pulse Rate 69 12/23/23 11:23 Respiratory Rate 28 H 12/23/23 11:23 Blood Pressure 133/65 12/23/23 11:23 Pulse Oximetry 94 12/23/23 11:23 Oxygen Delivery Method Room Air 12/23/23 11:23 General: Chronically ill-appearing, able to speak in full sentences HEENT: Moist mucous membranes, normal sclera with reactive pupils, Neck: No JVD, supple Respiratory: Lungs are clear to auscultation, minimal basilar crackles bilaterally, no wheezing Full and symmetrical air movement Chest: No reproducible chest pain, no skin rashes over the upper chest Cardiac: Regular rate and rhythm no murmurs no bruits Abdomen: Soft, nontender, good bowel tones, no flank pain Skin: Warm and dry, no rashes Neurologic: She is able to move all extremities and does not have any localizing symptoms Extremities: No trauma, well perfused, scars from multiple well-healed lower extremity ulcers. Minimal lower extremity edema Psych: Cooperative, fluent speech Course Orders Ordered: ED Orders 12/23/23 11:10 Complete Blood Count AUTO DIFF Stat 12/23/23 12:08 XR chest 1V Stat Comprehensive Metabolic Panel Stat Lipase Stat Troponin & CK Cardiac Panel Stat EKG-12 Lead Stat 12/23/23 13:55 UA Complete [Urinalysis and Microscopic] Stat Urine Culture Stat 12/23/23 14:08 Troponin I Stat Nitroglycerin (Nitroglycerin 0.4 Mg Sl Tab) 0.4 mg SL [id number] PRN PRN Reason: Chest Pain Last Admin: 12/23/23 12:21 Dose: 0.4 mg Documented By: RL Discontinued Medications Aspirin (Aspirin 81 Mg Chew Tab) 324 mg PO NOW ONE Stop: 12/23/23 12:09 Last Admin: 12/23/23 12:18 Dose: 324 mg Documented By: DISHA Furosemide (Furosemide 40 Mg/4 Ml Vial) 40 mg IV NOW ONE Stop: 12/23/23 13:13 Last Admin: 12/23/23 13:32 Dose: 40 mg Documented By: RL Vital Signs Vital signs: Vital Signs - 8 hr 12/23/23 11:23 12/23/23 11:33 12/23/23 11:33 Temperature 97.7 F Pulse Rate 69 77 Respiratory Rate 28 H Blood Pressure 133/65 144/93 H Pulse Oximetry 94 92 Oxygen Delivery Method Room Air 12/23/23 12:00 12/23/23 12:01 12/23/23 12:01 Temperature Pulse Rate 72 72 Respiratory Rate 21 22 Blood Pressure 167/78 H Pulse Oximetry 99 98 Oxygen Delivery Method 12/23/23 12:30 12/23/23 12:31 12/23/23 12:31 Temperature Pulse Rate 73 76 Respiratory Rate 20 20 Blood Pressure 172/75 H Pulse Oximetry 91 91 Oxygen Delivery Method Room Air 12/23/23 13:00 12/23/23 13:01 12/23/23 13:01 Temperature Pulse Rate 71 70 Respiratory Rate 19 19 Blood Pressure 172/85 H Pulse Oximetry 93 93 Oxygen Delivery Method 12/23/23 13:30 12/23/23 13:31 12/23/23 13:31 Temperature Pulse Rate 73 69 Respiratory Rate 24 21 Blood Pressure 243/140 H Pulse Oximetry 86 L 85 L Oxygen Delivery Method 12/23/23 13:35 12/23/23 13:35 12/23/23 14:00 Temperature Pulse Rate 69 70 Respiratory Rate 22 17 Blood Pressure 157/65 H Pulse Oximetry 93 94 Oxygen Delivery Method 12/23/23 14:01 12/23/23 14:01 Temperature Pulse Rate 69 Respiratory Rate 19 Blood Pressure 121/62 Pulse Oximetry 93 Oxygen Delivery Method Room Air Medical Decision Making Lab Data 12/23/23 11:10 12/23/23 12:08 Labs: Lab Results 12/23/23 12/23/23 12/23/23 Range/Units 11:10 12:08 13:55 WBC 12.3 H (4.5-11.0) X10^3/uL RBC 4.73 (4.0-5.2) X10^6/uL Hgb 13.8 (12.0-16.0) g/dL Hct 42.4 (36-46) % MCV 89.6 (80-100) fL MCH 29.2 (26-34) PG MCHC 32.6 (30-36) % RDW 15.9 H (11.6-14.8) % Plt Count 176 (150-400) X10^3/uL Neut % (Auto) Not Reportable Lymph % (Auto) Not Reportable [place] % (Auto) Not Reportable Eos % (Auto) Not Reportable Baso % (Auto) Not Reportable Lymph # (Auto) Not Reportable [place] # (Auto) Not Reportable Baso # (Auto) Not Reportable Total Counted 100 Seg Neutrophils % 70.0 (38-70) % Band Neutrophils % 1.0 L (3-7) % Lymphocytes % (Manual) 11.0 L (25-45) % Monocytes % (Manual) 17.0 H (2-11) % Eosinophils % (Manual) 1.0 L (2-4) % Neutrophils # (Manual) 8733 H (7786-8677) /uL RBC Morphology Normal morphology Sodium 137 (137-145) mmol/L Potassium 4.3 (3.4-5.1) mmol/L Chloride 98 (98-107) mmol/L Carbon Dioxide 32 (22-32) mmol/L BUN 19 H (7-17) mg/dL Creatinine 0.98 (0.52-1.04) mg/dL Estimated GFR 58 L (>60) mL/min BUN/Creatinine Ratio 19.4 (6-22) Glucose 273 H (80-110) mg/dL Calcium 9.0 (8.4-10.2) mg/dL Total Bilirubin 0.8 (0.2-1.3) mg/dL AST 23 (14-36) IU/L ALT 27 (<35) IU/L Alkaline Phosphatase 100 (38-126) U/L Total Creatine Kinase 29 L (30-135) U/L Troponin I < 0.012 (0.01-0.034) ng/mL Total Protein 7.3 (6.3-8.2) g/dL Albumin 4.2 (3.5-5.0) g/dL Globulin 3.1 (1.7-4.1) g/dL Albumin/Globulin Ratio 1.4 (1.0-2.8) Lipase 48 (23-300) U/L Urine Color Yellow Urine Appearance Clear Urine pH 5.5 (4.5-8.0) Ur Specific [place] <=1.005 (1.000-1.035) Urine Protein Negative (Negative) Urine Glucose (UA) 3+ H (Negative) g/dL Urine Ketones Negative (NEGATIVE) Urine Occult Blood Trace-intact (Negative) Urine Nitrate Positive H (Negative) Urine Bilirubin Negative (NEGATIVE) Urine Urobilinogen 1.0 (0.2) E.U./dL Ur Leukocyte Esterase 2+ H (NEGATIVE) Urine RBC 1-5/hpf (0-5/HPF) Urine WBC 5-10/hpf H (0-5/HPF) Ur Squamous Epith Cells 1-5 /hpf (0-5/HPF) Urine Bacteria Many (>30) H (None) Ur Culture Indicated? Specimen cultured Vol Urine Centrifuged 10ml (spun) 12/23/23 Range/Units 14:08 WBC (4.5-11.0) X10^3/uL RBC (4.0-5.2) X10^6/uL Hgb (12.0-16.0) g/dL Hct (36-46) % MCV (80-100) fL MCH (26-34) PG MCHC (30-36) % RDW (11.6-14.8) % Plt Count (150-400) X10^3/uL Neut % (Auto) Lymph % (Auto) [place] % (Auto) Eos % (Auto) Baso % (Auto) Lymph # (Auto) [place] # (Auto) Baso # (Auto) Total Counted Seg Neutrophils % (38-70) % Band Neutrophils % (3-7) % Lymphocytes % (Manual) (25-45) % Monocytes % (Manual) (2-11) % Eosinophils % (Manual) (2-4) % Neutrophils # (Manual) (0915-0686) /uL RBC Morphology Sodium (137-145) mmol/L Potassium (3.4-5.1) mmol/L Chloride (98-107) mmol/L Carbon Dioxide (22-32) mmol/L BUN (7-17) mg/dL Creatinine (0.52-1.04) mg/dL Estimated GFR (>60) mL/min BUN/Creatinine Ratio (6-22) Glucose (80-110) mg/dL Calcium (8.4-10.2) mg/dL Total Bilirubin (0.2-1.3) mg/dL AST (14-36) IU/L ALT (<35) IU/L Alkaline Phosphatase (38-126) U/L Total Creatine Kinase (30-135) U/L Troponin I < 0.012 (0.01-0.034) ng/mL Total Protein (6.3-8.2) g/dL Albumin (3.5-5.0) g/dL Globulin (1.7-4.1) g/dL Albumin/Globulin Ratio (1.0-2.8) Lipase (23-300) U/L Urine Color Urine Appearance Urine pH (4.5-8.0) Ur Specific [place] (1.000-1.035) Urine Protein (Negative) Urine Glucose (UA) (Negative) g/dL Urine Ketones (NEGATIVE) Urine Occult Blood (Negative) Urine Nitrate (Negative) Urine Bilirubin (NEGATIVE) Urine Urobilinogen (0.2) E.U./dL Ur Leukocyte Esterase (NEGATIVE) Urine RBC (0-5/HPF) Urine WBC (0-5/HPF) Ur Squamous Epith Cells (0-5/HPF) Urine Bacteria (None) Ur Culture Indicated? Vol Urine Centrifuged MDM Narrative Medical decision making narrative: CC: Acute chest pain/dyspnea Complicating co-morbidities: Full-time resident at [facility], morbid obesity, essentially bed-bound, history of congestive heart failure, chronic respiratory failure secondary to her size and obesity hypoventilatory syndrome Data collected from: patient, medics Medical records reviewed: Discharge summary from August of 2021 is reviewed Differential considered: Acute coronary syndrome, pneumonia, chronic dyspnea, PE is considered but felt to be less likely given her lower heart rate and continued Eliquis Exam documented above, pertinent findings include: Morbidly obese, Minor bibasilar crackles, no significant lower extremity edema. Exam is otherwise benign Lab Test results independently reviewed as above. Pertinent findings: CBC shows a white count at 12.3 which appears to be close to her baseline if not on the low side. Otherwise unremarkable Chemistries are reassuring. Glucose is 273 which appears to be close to her chronic baseline Troponin is undetectable, 2nd troponin is also undetectable Lipase is unremarkable Independently reviewed EKG: Atrial fibrillation at a rate of 75. No ischemic changes appreciated Imaging studies independently reviewed: Cardiomegaly with mild congestion no other infiltrates appreciated Treatments: Nitroglycerin sublingual x1. She states that it did get rid of her dyspnea however symptoms have been waxing and waning in her description and complaints has been clinically inconsistent. Unsure if it truly a difference or not Discussion: 83-year-old woman presents with the acute onset of dyspnea. Symptoms seemed to be significantly improved. Workup does not suggest acute coronary syndrome, pneumonia, viral etiology, acute congestive heart failure or alternate explanation that would require further imaging, additional blood work or hospitalization. [facility] Discharge Plan Departure Patient Disposition: Home Clinical Impression: Chronic shortness of breath Activity Restrictions/Additional Instructions: Thank you for coming in today Your workup did not show anything new. Specifically there was no evidence of heart attack, pneumonia, upper respiratory infection, change to congestive heart failure I am not going to make any changes to medications currently Please continue all of your current medications and follow up with your doctor at the facility Prescriptions: No Action nitroglycerin [Nitrostat] 0.4 MG tablet, sublingual 0.4 mg Sublingual PRN PRN (Reason: Chest Pain) Qty: 0 atorvastatin 40 mg Tablet 40 mg PO BEDTIME potassium chloride 10 mEq Capsule, Extended Release 10 meq PO DAILY aripiprazole 5 mg Tablet 2.5 mg PO DAILY bupropion HCl 100 mg tablet sustained-release 12 hr 100 mg PO BID gabapentin 600 mg tablet 600 mg PO TID levothyroxine 100 mcg tablet 100 mcg PO DAILY pantoprazole 40 mg tablet,delayed release (DR/EC) 40 mg PO DAILY nystatin 100,000 unit/gram cream 1 applic TOPICAL BID Rx Instructions: to inner groin for yeast. wash area with mild soap and water, pat dry, then apply cream. DC this order when area is resolved duloxetine 30 mg Capsule,Delayed Release(Dr/Ec) 90 mg PO DAILY Eliquis 5 mg tablet 5 mg PO BID polyethylene glycol 3350 17 gram Powder In Packet 17 gm PO BID Qty: 60 2RF tramadol 50 mg Tablet 50 mg PO Q4H PRN (Reason: Pain, Moderate (4-6)) Qty: 20 0RF bumetanide 1 mg Tablet 0.5 mg PO DAILY Qty: 30 2RF Bacid 1 billion cell- 250 mg Tablet 1 ea PO TIDWM Qty: 90 2RF lactulose 10 gram/15 mL (15 mL) solution 10 g PO DAILY PRN (Reason: CONSTIPATION ) Qty: 600 0RF acetaminophen 500 mg Tablet 1,000 mg PO BID MDD 3 g PRN (Reason: Pain (Scale Score 4-6)) sennosides [senna] 8.6 mg Tablet 17.2 mg PO BID Patient Comments: hold for loose stool insulin lispro [Humalog U-100 Insulin] 100 unit/mL Solution See Rx Instructions .ROUTE .COMPLEX Rx Instructions: 1 dose subcutaneously sliding scale 151-250=10 units, 251-350=15u, 351-450=20 u ac and bedtime >451 call insulin glargine [Lantus U-100 Insulin] 100 unit/mL solution 74 unit subcut DAILY insulin glargine [Lantus Solostar U-100 Insulin] 100 unit/mL (3 mL) insulin pen 48 unit SUBCUT BEDTIME diltiazem HCl 180 mg capsule,extended release 24 hr 180 mg PO DAILY lisinopril 5 mg tablet 5 mg PO DAILY Referrals: Fernanda Knox ARNP [Primary Care Provider] - Stand Alone Forms: Patient Portal/API
--- NOTE | 2023-12-23 12:08 | DI.RAD.S_ITS ---
PROCEDURE: XR CHEST 1V INDICATIONS: chest pain TECHNIQUE: One view of the chest was acquired. COMPARISON: [facility], CR, XR CHEST 1V, 10/15/2021, 16:41. FINDINGS: Surgical changes and devices: None. Lungs and pleura: There is pulmonary vascular congestion. No definite focal infiltrate. No pleural effusions or pneumothorax. Mediastinum: Mediastinal contours appear normal. Heart size is enlarged Bones and chest wall: No suspicious bony lesions. Overlying soft tissues appear unremarkable. IMPRESSION: Cardiomegaly and mild congestion. No definite focal infiltrate. No pleural effusion or pneumothorax. Dictated by: Gonzalo Michelle M.D. on 12/23/2023 at 12:32 Approved by: Gonzalo Michelle M.D. on 12/23/2023 at 12:33
[2023-12-23 12:15] LABS: Hematocrit 42.4 % (36-46); Hemoglobin 13.8 g/dL (12.0-16.0); Mean Corpuscular HGB Conc 32.6 % (30-36); Mean Corpuscular Hemoglobin 29.2 PG (26-34); Mean Corpuscular Volume 89.6 fL (80-100); Platelet Count 176 X10^3/uL (150-400); Red Blood Cell Count 4.73 X10^6/uL (4.0-5.2); Red Cell Distribution Width 15.9 % (11.6-14.8); White Blood Cell Count 12.3 X10^3/uL (4.5-11.0)
[2023-12-23] MEDS: ASPIRIN 81 MG CHEW TAB 324 MG PO (12:18)
[2023-12-23] MEDS: NITROGLYCERIN 0.4 MG SL TAB SL (12:21)
[2023-12-23 12:22] LABS: Alanine Aminotransferase 27 IU/L (<35); Albumin 4.2 g/dL (3.5-5.0); Albumin Globulin Ratio 1.4 (1.0-2.8); Alkaline Phosphatase 100 U/L (38-126); Aspartate Aminotransferase 23 IU/L (14-36); BUN Creatinine Ratio 19.4 (6-22); Bilirubin Total 0.8 mg/dL (0.2-1.3); Blood Urea Nitrogen 19 mg/dL (7-17); Carbon Dioxide 32 mmol/L (22-32); Chloride 98 mmol/L (98-107); Creatine Kinase 29 U/L (30-135); Estimated Glomerular Filt Rate 58 mL/min (>60); Globulin 3.1 g/dL (1.7-4.1); Glucose 273 mg/dL (80-110); HEMOLYSIS < 15 (0-50); Lipase 48 U/L (23-300); Potassium 4.3 mmol/L (3.4-5.1); Sodium 137 mmol/L (137-145); Total Protein 7.3 g/dL (6.3-8.2)
[2023-12-23 12:34] LABS: Troponin I < 0.012 ng/mL (0.01-0.034)
[2023-12-23 12:58] LABS: Add Manual Diff / Slide Review YES
[2023-12-23 13:20] LABS: Neutrophils Absolute Manual 8733 /uL (3000-5900); Total Cells Counted 100
[2023-12-23 13:21] LABS: RBC Morphology Normal Morphology
[2023-12-23] MEDS: FUROSEMIDE 40 MG/4 ML VIAL IV (13:32)
[2023-12-23 14:07] LABS: Appearance Urine UA CLEAR; Bilirubin Urine UA NEGATIVE (NEGATIVE); Color Urine UA YELLOW; Glucose Urine UA 3+ g/dL (Negative); Ketones Urine UA NEGATIVE (NEGATIVE); Leukocyte Esterase Urine UA 2+ (NEGATIVE); Nitrite Urine UA POSITIVE (Negative); Occult Blood Urine UA TRACE-INTACT (Negative); Protein Urine UA NEGATIVE (Negative); Specific Gravity Urine UA <=1.005 (1.000-1.035)
[2023-12-23 14:08] LABS: Urine Volume 10mL (spun); pH Urine UA 5.5 (4.5-8.0)
[2023-12-23 14:13] LABS: Bacteria Urine Many (>30); Culture Indicated Urine Specimen Cultured; RBC Urine 1-5/HPF (0-5/HPF); Squamous Epithelial Cell Urine 1-5 /HPF (0-5/HPF); WBC Urine 5-10/HPF (0-5/HPF)
[2023-12-23 14:43] LABS: Troponin I < 0.012 ng/mL (0.01-0.034)
== END 2023-12-23 16:40 | disposition home or self-care (01) ==
PROVIDERS: Emergency Provider Emergency Medicine; PCP Nurse Practitioner Family
DX: R06.02 Shortness of breath (principal); I51.7 Cardiomegaly; Z79.899 Other long term (current) drug therapy
CPT/HCPCS: 71045; 80053; 81001; 82550; 83690; 84484; 85007; 85025; 87077; 87086; 87186; 93005; 96374; 99284; J1940

== ENCOUNTER → 2024-11-18 21:18 | Outpatient (ROUT) | payer MEDICARE, MEDICAID, OTHER, SELFPAY ==
[2021-12-21 09:16] VITALS: BMI 50.3
[2024-11-18 21:27] LABS: Appearance Urine UA SL CLOUDY; Bilirubin Urine UA NEGATIVE (NEGATIVE); Color Urine UA YELLOW; Glucose Urine UA NEGATIVE (Negative); Ketones Urine UA NEGATIVE (NEGATIVE); Leukocyte Esterase Urine UA NEGATIVE (NEGATIVE); Nitrite Urine UA POSITIVE (Negative); Occult Blood Urine UA NEGATIVE (Negative); Protein Urine UA NEGATIVE (Negative); Specific Gravity Urine UA 1.015 (1.000-1.035); Urobilinogen Urine UA 0.2 E.U./dL (0.2)
[2024-11-18 21:33] LABS: pH Urine UA 5.5 (4.5-8.0)
[2024-11-18 21:34] LABS: Bacteria Urine Many (>30); RBC Urine None Seen (0-5/HPF); Squamous Epithelial Cell Urine 10-30 /HPF (0-5/HPF); Urine Volume 10mL (spun); WBC Urine None Seen (0-5/HPF)
[2024-11-18 21:35] LABS: Culture Indicated Urine Specimen Cultured
== END ==
PROVIDERS: PCP Nurse Practitioner Family; Visit Provider Nurse Practitioner Family
DX: N39.0 Urinary tract infection, site not specified (principal); R30.0 Dysuria
CPT/HCPCS: 81001; 87077; 87086; 87186